=== PATIENT | male | born 1955 | race Caucasian/White ===

== ENCOUNTER 2016-06-19 17:25 | Inpatient (IN) | payer BC, OTHER ==
[2016-06-19 17:38] VITALS: BMI 21.8
[2016-06-19] MEDS ORDERED: Sodium Chloride 0.9% 1,000 ML IV STA ×2 (18:03)
--- NOTE | 2016-06-19 18:14 | ED PDOC ---
Arrival/HPI - General Chief Complaint: High Blood Sugar Time Seen by Provider: 06/19/16 18:02 Historian: Patient - History of Present Illness Narrative History of Present Illness (Text): 06/19/16 19:00 Patient is a 61 year old male past medical history of diabetes, presents to ED with "being very weak" "since yesterday". Patient reportedly is a diabetic but has been noncompliant with follow-up and with medication. Patient reportedly has had increased thirst and urination since yesterday. Today he was "too weak to get up" and complains of nausea, chest pain, cough, abdominal cramping. No vomiting. No fever. Denies injury or trauma. Family states the patient has been "breathing harder" lately and has been slurring his words today. Time/Duration: Prior to Arrival Symptom Onset: Gradual Past Medical History - Tetanus Immunization Tetanus Immunization: Unknown - Cardiac Hx Hypertension: Yes - Endocrine/Metabolic Hx Diabetes Mellitus Type 2: Yes - Musculoskeletal/Rheumatological Hx Falls: No - Psychiatric Hx Depression: No Hx Emotional Abuse: No Hx Physical Abuse: No Hx Substance Use: No - Surgical History Hx Cardiac Catheterization: Yes - Anesthesia Hx Anesthesia: No - Suicidal Assessment Feels Threatened In Home Enviroment: No Family/Social History Family/Social History: Unknown Family HX Smoking Status: Former Smoker Hx Alcohol Use: No (quit 7 yrs ago) Hx Substance Use: No Hx Substance Use Treatment: No Allergies/Home Meds Allergies/Adverse Reactions: Allergies No Known Allergies Allergy (Verified 06/19/16 17:38) Home Medications: Home Meds Medication Instructions Recorded Confirmed Metformin HCl [Glucophage] 500 mg PO BID 06/19/16 06/19/16 Review of Systems - Review of Systems Constitutional: Fatigue. absent: Fevers Eyes: absent: Vision Changes, Eye Pain ENT: absent: Hearing Changes Respiratory: SOB, Cough, Sputum. absent: Wheezing Cardiovascular: Chest Pain, Palpitations, EUCEDA. absent: Edema, Calf Pain Gastrointestinal: Nausea, Appetite Changes. absent: Abdominal Pain, Vomiting, Hematochezia Genitourinary Male: Frequency. absent: Dysuria, Urinary Output Changes Musculoskeletal: absent: Arthralgias, Back Pain Skin: absent: Rash Neurological: Headache, Dizziness. absent: Focal Weakness, Gait Changes Endocrine: Polyuria, Polydipsia Physical Exam - Physical Exam Narrative Physical Exam (Text): Head: Atraumatic. Normocephalic. Eyes: PERRL. EOMI. Conjunctivae are not pale. ENT: Mucous membranes dry and tacky. No pharyngeal erythema or exudates. No drooling or pooling of secretions. No active bleeding, no nasal bleeding or discharge. Neck: Supple. Full ROM. No JVD. No lymphadenopathy. No meningeal signs. Cardiovascular: Tachycardic, systolic murmur. Pulmonary/Chest: Tachypneic, lungs clear with no wheezes or rhonchi. Abdominal: Soft and non-distended. There is no tenderness. No rebound, guarding, or rigidity. No organomegaly. Good bowel sounds. Back: No CVA tenderness. No midline tenderness. Extremities: No edema. No cyanosis. No clubbing. Full range of motion in all extremities. No calf tenderness. Skin: Skin is dry, pale. Smell of acetone. Neurological: Alert, awake, and oriented to person, place, time, and situation. Normal speech. Motor and sensory exam intact, no facial droop, no meningeal signs. Motor and sensory exam intact. No meningeal signs. Psychiatric: Good eye contact. Normal interaction, affect, and behavior. Vital Signs Reviewed: Yes Vital Signs Temp Pulse Resp BP Pulse Ox 06/19/16 21:20 102 H 37 H 95 06/19/16 21:11 99 H 40 H 174/89 H 96 06/19/16 21:10 105 H 38 H 06/19/16 21:07 36 H 06/19/16 20:48 98.1 F 111 H 20 156/91 H 94 L 06/19/16 18:02 100.2 F H Temperature: Afebrile Pulse: Tachycardic Respiratory Rate: Tachypneic Appearance: Positive for: Ill-Appearing Pain Distress: Severe Mental Status: Positive for: Alert and Oriented X 3 Medical Decision Making ED Course and Treatment: 06/19/16 23:01 Patient on examination is noted to smell of acetone, is hyperglycemia. Patient I suspect in DKA based on initial examination and history. IV fluids ordered, blood sugar found to be over 400. ABG reveals acidosis, labs reveal elevated k as well as high anion gap. Insulin drip ordered, iv fluids continued. Internet Consultant consulted. Patient coughed, felt as if blood tinged. I examined patient he has no wheezing or rales. Tachypnea I feel due to acidosis. I examined sputum and did not see gross bright red blood. Patient reports generalized pain. He reportedly has had cardiac cath in past, although several years ago, which was unremarkable. After iv fluids and re-exam the patient has no slurred speech or motor or sensory deficits. Suspect DKA. CXR with ? infiltrate, will initiate IV antibiotics after consultation with superintendent meters Dr. Hanna, patient admitted to ICU. Will follow serial exams, treat elevated K at this time with iv hydration and insulin. Will continue cardiac monitoring, no chest pain on reassessment, initial troponin unremarkable. - Lab Interpretations Lab Results: 06/19/16 18:15 06/19/16 18:15 Lab Results 06/19/16 18:35: pCO2 14 L*, pO2 76.0 L, HCO3 4.8 L*, ABG pH 7.14 L*, ABG Total CO2 5.2 L, ABG O2 Saturation 95.6, ABG Base Excess -21.9 L, ABG Potassium 4.7, Glucose 425 H*, Lactate 2.2 H, FiO2 21.0, Sodium 143.0, Chloride 119.0 H, Arterial Blood Potassium 4.7 06/19/16 18:15: TSH 3rd Generation 0.03 L 06/19/16 18:15: Phosphorus 5.3 H, Magnesium 2.5 H, NT-Pro-B Natriuret Pep 370 06/19/16 18:15: Sodium 147, Potassium 5.5 H, Chloride 108 H, Carbon Dioxide 7 L D, Anion Gap 38 H, BUN 19, Creatinine 1.6 H, Est GFR ( Amer) 54, Est GFR (Non-Af Amer) 44, Random Glucose 495 H* D, Calcium 10.0, Total Bilirubin 1.2, AST 18, ALT 28, Alkaline Phosphatase 76, Lactate Dehydrogenase 756 H, Total Creatine Kinase 117, Troponin I < 0.01, Total Protein 9.2 H, Albumin 4.2, Globulin 5.0, Albumin/Globulin Ratio 0.8 L, Amylase 49, Lipase 26 06/19/16 18:15: PT 10.7, INR 0.99, APTT 30.8 06/19/16 18:15: WBC 7.2, RBC 5.09, Hgb 14.3, Hct 43.7, MCV 85.9, MCH 28.1, MCHC 32.7, RDW 14.1, Plt Count 160, Gran % 76.7 H, Lymph % (Auto) 10.9 L, Brooks % ( Auto) 12.2 H, Eos % (Auto) 0.1 L, Baso % (Auto) 0.1, Gran # 5.49, Lymph # 0.8 L , Brooks # 0.9 H, Eos # 0.0, Baso # 0.01 - RAD Interpretation Radiology Orders: 06/19/16 18:02 CHEST PORTABLE [RAD] Stat - EKG Interpretation EKG Interpretation (Text): 06/19/16 23:01 EKG at 17:52 sinus tachycardia rate of 104 with peaked t waves lead v2 and v3 Interpreted by ED Physician: Yes Type: 12 lead EKG - Medication Orders Current Medication Orders: Acetaminophen (Tylenol 325mg Tab) 650 mg PO Q6H PRN PRN Reason: Fever >100.4 F Sodium Chloride (Sodium Chloride 0.9%) 1,000 mls @ 200 mls/hr IV .Q5H LYN Last Admin: 06/19/16 20:44 Dose: 200 mls/hr Insulin Human Regular 100 (units/ Sodium Chloride) 100 mls @ 5 mls/hr IV .Q20H PRN; Protocol; 5 UNITS/HR PRN Reason: TITRATE PER MD ORDER Levofloxacin/Dextrose (Levaquin 500mg) 500 mg in 100 mls @ 100 mls/hr IVPB DAILY LYN Lisinopril (Zestril) 30 mg PO DAILY LYN Metoclopramide HCl (Reglan) 10 mg IVP Q6H PRN PRN Reason: Nausea/Vomiting Pantoprazole Sodium (Protonix Inj) 40 mg IVP DAILY [facility] Discontinued Medications Sodium Chloride (Sodium Chloride 0.9%) 1,000 mls @ 1,000 mls/hr IV .Q1H STA Stop: 06/19/16 19:02 Last Admin: 06/19/16 18:18 Dose: 1,000 mls/hr Sodium Chloride (Sodium Chloride 0.9%) 1,000 mls @ 1,000 mls/hr IV .Q1H STA Stop: 06/19/16 19:02 Last Admin: 06/19/16 18:19 Dose: 1,000 mls/hr Insulin Human Regular 100 (units/ Sodium Chloride) 100 mls @ 7 mls/hr IV .[id number] PRN; Protocol; 7 UNITS/HR PRN Reason: TITRATE PER MD ORDER Last Admin: 06/19/16 21:31 Dose: 12 units/hr, 12 mls/hr Levofloxacin/Dextrose (Levaquin 500mg) 500 mg in 100 mls @ 100 mls/hr IVPB STAT STA Stop: 06/19/16 20:33 Last Admin: 06/19/16 20:36 Dose: 100 mls/hr Ondansetron HCl (Zofran Inj) 4 mg IVP ONCE ONE Stop: 06/19/16 18:23 Last Admin: 06/19/16 18:40 Dose: 4 mg Disposition/Present on Arrival - Present on Arrival Any Indicators Present on Arrival: Yes History of DVT/PE: No History of Uncontrolled Diabetes: Yes Urinary Catheter: No History of Decub. Ulcer: No History Surgical Site Infection Following: None - Disposition Have Diagnosis and Disposition been Completed?: Yes Diagnosis: Diabetic ketoacidosis Disposition: HOSPITALIZED Disposition Time: 19:00 Patient Plan: Admission Patient Problems: Current Active Problems Problem Status Onset Diabetic ketoacidosis Acute Condition: CRITICAL
[2016-06-19 18:28] LABS: ADD MANUAL DIFF? NO
[2016-06-19 18:40] LABS: BASO # 0.01 K/mm3 (0.0-2.0); BASO % 0.1 % (0.0-3.0); EOS % 0.1 % (1.5-5.0); GRAN # 5.49 (1.4-6.5); GRAN % 76.7 % (50.0-68.0); HEMATOCRIT 43.7 % (42.0-52.0); LYMPH # 0.8 (1.2-3.4); LYMPH % 10.9 % (22.0-35.0); MEAN CELL VOLUME 85.9 fL (80.0-105.0); MEAN CORPUSCULAR HEMOGLOBIN 28.1 pg (25.0-35.0); MEAN CORPUSCULAR HGB CONC 32.7 g/dl (31.0-37.0); MONO # 0.9 (0.1-0.6); MONO % 12.2 % (1.0-6.0); PLATELET COUNT 160 10^3/uL (120.0-450.0); RED CELL DISTRIBUTION WIDTH 14.1 % (11.5-14.5); WHITE BLOOD COUNT 7.2 10^3/ul (4.5-11.0)
[2016-06-19 18:44] LABS: ARTERIAL BLOOD GAS HCO3 4.8 mmol/L (21-28)
[2016-06-19 18:47] LABS: INR 0.99 (0.93-1.08); PARTIAL THROMBOPLASTIN TIME 30.8 Seconds (23.7-30.8)
[2016-06-19 18:49] LABS: ARTERIAL BLOOD GAS PH 7.14 (7.35-7.45)
[2016-06-19 18:52] LABS: ALB/GLOB RATIO 0.8 (1.1-1.8); ALKALINE PHOSPHATASE 76 U/L (38-133); ALT/SGPT 28 U/L (7-56); AMYLASE 49 U/L (35-125); AST/SGOT 18 U/L (15-59); BILIRUBIN,TOTAL 1.2 mg/dL (0.2-1.3); BLOOD UREA NITROGEN 19 mg/dL (7-21); CARBON DIOXIDE 7 mmol/L (21-33); CHLORIDE 108 mmol/L (98-107); GFR AFRICAN-AMERICAN 54; LIPASE 26 U/L (23-300); SODIUM 147 mmol/L (132-148); TOTAL PROTEIN 9.2 g/dL (5.8-8.3)
[2016-06-19 18:53] LABS: POTASSIUM 5.5 mmol/L (3.6-5.0)
[2016-06-19 18:55] LABS: GLUCOSE,RANDOM 495 mg/dL (70-110)
[2016-06-19] MEDS: Insulin Regular 100 UNITS in Sodium Chloride 0.9% 99 ML IV PRN ×2 (19:32→21:31)
[2016-06-19] MEDS ORDERED: levoFLOXacin 500 mg in D5W 500 MG/100 ML BAG IVPB STA (19:34)
[2016-06-19 19:43] LABS: TROPONIN I < 0.01 ng/mL
[2016-06-19] MEDS ORDERED: Sodium Chloride 0.9% 1,000 ML IV SCH (20:00)
[2016-06-19] MEDS ORDERED: Insulin Regular 100 UNITS in Sodium Chloride 0.9% 99 ML IV PRN (20:04)
--- NOTE | 2016-06-19 20:08 | CP.PCM.PCO ---
Physician Communication Note - Physician Communication Note Physician Communication Note: Once FS<wf=[id number], please change IVF to d51/2NS@ 150cc/hr
--- NOTE | 2016-06-19 20:10 | CP.PCM.HP ---
History of Present Illness - History of Present Illness History of Present Illness: The patient is a 61 year old man with history of HTN and NIDDM who presents with 2 days of generalized weakness, polydysia, polyuria, hemoptysis, cough with green-colored sputum, intermittent confusion and some mild SOB. He admits to being non-compliant with his home diabetes medications. He also reports several months of unintentional weight loss; although he cannot quantify the exact amount lost. Additionally, he reports several weeks of night sweats. He denies chest pain, recent travel, history of tuberculoses, recent trauma, or N/V. In the ED, per RN report, he had one episode of "mildly" bloody sputum. Also in the ED, his chest X-ray shows a RUL infiltrate and initial labs confirmed. Also, the patient is septic. Consequently, he will now be admitted to the ICU for further treatment and close monitoring of his acute medical issues. Present on Admission - Present on Admission Any Indicators Present on Admission: No History of DVT/PE: No History of Uncontrolled Diabetes: Yes Urinary Catheter: No Decubitus Ulcer Present: No Review of Systems - Review of Systems All systems: reviewed and no additional remarkable complaints except - Constitutional Constitutional: As Per HPI - EENT Eyes: As Per HPI Nose/Mouth/Throat: As Per HPI - Cardiovascular Cardiovascular: As Per HPI - Respiratory Respiratory: As Per HPI - Gastrointestinal Gastrointestinal: As Per HPI - Genitourinary Genitourinary: As Per HPI - Musculoskeletal Musculoskeletal: As Per HPI - Neurological Neurological: As Per HPI Past Patient History - Tetanus Immunizations Tetanus Immunization: Unknown - Past Social History Smoking Status: Former Smoker - CARDIAC Hx Hypertension: Yes - ENDOCRINE/METABOLIC Hx Diabetes Mellitus Type 2: Yes - MUSCULOSKELETAL/RHEUMATOLOGICAL Hx Falls: No - GASTROINTESTINAL Hx Ulcer: Yes (1984) - PSYCHIATRIC Hx Depression: No Hx Emotional Abuse: No Hx Physical Abuse: No Hx Substance Use: No - SURGICAL HISTORY Hx Cardiac Catheterization: Yes - ANESTHESIA Hx Anesthesia: No Meds Allergies/Adverse Reactions: Allergies Allergy/AdvReac Type Severity Reaction Status Date / Time No Known Allergies Allergy Verified 06/19/16 17:38 Physical Exam - Constitutional Additional comments: Fatigued appearing but no acute distress; A&Ox3 - Head Exam Head Exam: ATRAUMATIC - Eye Exam Eye Exam: EOMI, Normal appearance, PERRL - ENT Exam ENT Exam: Mucous Membranes Dry, Normal Oropharynx - Neck Exam Neck exam: Positive for: Normal Inspection - Respiratory Exam Respiratory Exam: Clear to Auscultation Bilateral, NORMAL BREATHING PATTERN - Cardiovascular Exam Cardiovascular Exam: Tachycardia, REGULAR RHYTHM, +S1, +S2 - GI/Abdominal Exam GI & Abdominal Exam: Normal Bowel Sounds, Soft. absent: Tenderness - Rectal Exam Rectal Exam: Deferred - Extremities Exam Extremities exam: Positive for: normal inspection - Neurological Exam Additional comments: Grossly normal neuro exam Results - Vital Signs Recent Vital Signs: Last Vital Signs Temp 100.2 F H 06/19/16 18:02 Pulse Resp BP Pulse Ox - Labs Result Diagrams: 06/20/16 04:00 06/20/16 04:00 - Imaging and Cardiology Chest x-ray Status: Image reviewed by me Assessment & Plan - Assessment and Plan (Free Text) Plan: A/P: The patient is a 61 year old man with history of HTN and NIDDM who is being admitted to the ICU for DKA, hemoptysis and sepsis due to a right-sided PNA. 1. Diabetic Ketoacidosis (without coma): -due to medication non-compliance -Insulin drip per Algorithm 1 protocol -NPO except meds while on Insulin drip -aggressive IVF's initially with NS@200cc/hr -no need for supplemental potassium at this time since initial K=5.5 -once fingerstick <vp=929, change IVF's to D51/2NS@150cc/hr -check serial BMP's, VBG's, Mag and Phos Q4hrs x 6 -check HgA1c -symptoms of generalized weakness likely due to DKA 2. Sepsis (due to pneumonia): -empiric IV antibiotics -aggressive IVF's -check procalcitonin and repeat lactic acid -check HIV -will place an ID consult 2. Right-sided Pneumonia: -will treat empirically with IV Vanco and Zosyn -blood and urine cultures drawn in ED already -will check procalcitonin and lactic acid -an ID consult has been placed -TB will be ruled out with three sputum AFB samples -airborne precautions while TB is being ruled out -monitor serial ABG's 3. Acute Hemoptysis: -ddx: TB vs malignancy -will rule out TB with three sets of sputum AFB samples -airborne precautions while TB is being ruled out -avoid anticoagulation -given infiltrates on CXR, absence of respiratory distress and a normal O2 sat, suspicion for acute PE is low -however, if pt's symptoms deteriorate despite IV antibiotics, will then consider a CT-PA 4. Acute Kidney Injury: -likely pre-renal etiology due to intravascular depletion -serum Cr expected to correct after aggressive IVF's -renally dose all meds until serum Cr corrects 5. Poorly Controlled Hypertension: -due to medication non-compliance -Lisinopril 30mg po daily plus Norvasc 10mg po daily -Clonidine 0.1mg po TID PRN SBP>165 DVT PPx: SCD's GI PPx: Protonix
[2016-06-19 21:48] LABS: MAGNESIUM 2.5 mg/dL (1.7-2.2); PHOSPHOROUS 5.3 mg/dL (2.5-4.5)
[2016-06-19] MEDS ORDERED: Labetalol 5 mg/ml Inj 20ML IV ONE (23:02)
[2016-06-19 23:31] LABS: VENOUS BLOOD GAS BASE EXCESS -17.2 mmol/L (0.0-2.0)
[2016-06-19 23:34] LABS: VENOUS BLOOD PH 7.12 (7.32-7.43)
[2016-06-19 23:34] LABS: BLOOD UREA NITROGEN 18 mg/dL (7-21); CALCIUM 9.6 mg/dL (8.4-10.5); CARBON DIOXIDE 12 mmol/L (21-33); CHLORIDE 116 mmol/L (98-107); GFR AFRICAN-AMERICAN > 60; GLUCOSE,RANDOM 242 mg/dL (70-110); POTASSIUM 4.2 mmol/L (3.6-5.0); SODIUM 152 mmol/L (132-148)
[2016-06-20 00:09] LABS: ARTERIAL BLOOD GAS HCO3 11.3 mmol/L (21-28); ARTERIAL BLOOD GAS O2 CONTENT 16.3 ML/dl (15-23); ARTERIAL BLOOD GAS PH 7.34 (7.35-7.45); CARBOXYHEMOGLOBIN 1.2 % (0.5-1.5); METHEMOGLOBIN 0.8 % (0.0-3.0)
[2016-06-20] MEDS ORDERED: Piperacillin/Tazobact 3.375 gm 100 ML IVPB STA (00:35)
[2016-06-20 01:02] LABS: MAGNESIUM 2.6 mg/dL (1.7-2.2); PHOSPHOROUS 2.2 mg/dL (2.5-4.5)
[2016-06-20] MEDS: Vancomycin 1gm in NS 250ml 1 GM/250 ML BAG IVPB SCH ×2 (01:02→11:49)
[2016-06-20] MEDS ORDERED: Potassium Phosphate 15 MMOLE in Dextrose 5% In Water 250 ML IVPB ONE (01:18)
[2016-06-20] MEDS: Potassium Chloride 20 MEQ in Dextrose 5%/0.45% NS 1,000 ML IV SCH ×2 (02:00→09:39)
[2016-06-20 04:13] LABS: HEMATOCRIT 40.6 % (42.0-52.0); MEAN CELL VOLUME 82.9 fL (80.0-105.0); MEAN CORPUSCULAR HEMOGLOBIN 26.9 pg (25.0-35.0); WHITE BLOOD COUNT 5.4 10^3/ul (4.5-11.0)
[2016-06-20 04:14] LABS: ADD MANUAL DIFF? YES; MEAN CORPUSCULAR HGB CONC 32.5 g/dl (31.0-37.0); MEAN PLATELET VOLUME 13.1 fl (7.0-11.0); PLATELET COUNT 133 10^3/uL (120.0-450.0); RED CELL DISTRIBUTION WIDTH 14.2 % (11.5-14.5)
[2016-06-20 04:20] LABS: BLOOD UREA NITROGEN 17 mg/dL (7-21); CALCIUM 9.1 mg/dL (8.4-10.5); CARBON DIOXIDE 14 mmol/L (21-33); CHLORIDE 118 mmol/L (98-107); CHOLESTEROL 144 mg/dL (130-200); GFR AFRICAN-AMERICAN > 60; GLUCOSE,RANDOM 272 mg/dL (70-110); MAGNESIUM 2.3 mg/dL (1.7-2.2); POTASSIUM 4.5 mmol/L (3.6-5.0); SODIUM 151 mmol/L (132-148)
[2016-06-20] MEDS: Insulin Regular 100 UNITS in Sodium Chloride 0.9% 99 ML IV PRN ×9 (04:30→19:12)
[2016-06-20 04:34] LABS: VENOUS BLOOD PH 7.36 (7.32-7.43)
[2016-06-20 04:35] LABS: VENOUS BLOOD GAS BASE EXCESS -9.1 mmol/L (0.0-2.0)
[2016-06-20 05:16] LABS: ARTERIAL BLOOD GAS O2 CAPACITY 17.3 mL/dl (16-24); ARTERIAL BLOOD GAS O2 CONTENT 16.3 ML/dl (15-23); ARTERIAL BLOOD GAS PH 7.37 (7.35-7.45); ARTERIAL BLOOD HGB O2 SAT 92.2 % (95.0-98.0); CARBOXYHEMOGLOBIN 1.5 % (0.5-1.5); HHB 5.5 % (0-5); METHEMOGLOBIN 0.9 % (0.0-3.0)
[2016-06-20] MEDS: Piperacillin/Tazobact 3.375 gm 100 ML IVPB SCH ×4 (06:47→18:12)
[2016-06-20 07:18] LABS: PH,URINE 5.5 (4.7-8.0); URINE BILIRUBIN SMALL (NEGATIVE); URINE BLOOD LARGE (NEGATIVE); URINE GLUCOSE (UA) 100 mg/dL (NEGATIVE); URINE KETONE 40 mg/dL (NEGATIVE); URINE LEUKOCYTE ESTERASE NEGATIVE Leu/uL (NEGATIVE); URINE PROTEIN 100 mg/dL (<30 mg/dL)
[2016-06-20 07:26] LABS: URINE APPEARANCE SL CLOUDY (CLEAR); URINE COLOR YELLOW (YELLOW)
[2016-06-20 07:27] LABS: URINE AMORPHOUS SEDIMENT FEW; URINE BACTERIA MOD (NEG); URINE EPITHELIAL CELLS 0 - 2 /hpf (0-5); URINE URIC ACID CRYSTALS FEW /hpf; URINE WBC 0 - 2 /hpf (0-6)
--- NOTE | 2016-06-20 08:49 | RAD ---
HISTORY: chest pain COMPARISON: 03/16/2012 FINDINGS: LUNGS: Multifocal hazy opacities particularly in the right lung. PLEURA: No significant pleural effusion identified, no pneumothorax apparent. CARDIOVASCULAR: Stable. OSSEOUS STRUCTURES: The osseous structures demonstrate degenerative changes. VISUALIZED UPPER ABDOMEN: Upper abdomen is suboptimally evaluated. OTHER FINDINGS: None. IMPRESSION: Multifocal small hazy opacities in the right lung. Underlying infection can be considered based on clinical scenario. PA lateral chest radiograph recommended. Please note that chest radiographs have low sensitivity for small pulmonary nodules. If indicated, chest CT should be obtained.
--- NOTE | 2016-06-20 09:47 | CP.CCUPN ---
CCU Subjective - Physician Review Events Since Last Encounter (Free Text): 06/20/16 09:41 No acute events overnight.Continued on DKA protocol . Pt was placed on TB precautions, but cxr reviewed, low likelyhood for TB. D/C isolation CCU Objective - Vital Signs / Intake & Output Vital Signs (Last 4 hours): Vital Signs Temp Pulse Resp BP Pulse Ox 06/20/16 09:16 144/88 06/20/16 09:15 88 144/88 06/20/16 07:20 92 H 31 H 94 L 06/20/16 07:10 93 H 27 H 94 L 06/20/16 07:00 91 H 30 H 154/73 H 94 L 06/20/16 06:50 94 H 34 H 94 L 06/20/16 06:40 94 H 31 H 94 L 06/20/16 06:30 92 H 30 H 168/74 H 94 L 06/20/16 06:20 93 H 38 H 94 L 06/20/16 06:10 92 H 33 H 94 L 06/20/16 06:07 100.4 F H 06/20/16 06:00 93 H 29 H 160/81 H 94 L 06/20/16 05:50 95 H 34 H 94 L Intake and Output (Last 8hrs): Intake & Output 06/19/16 06/20/16 06/20/16 22:59 06:59 14:59 Intake Total 20 2103 6 Output Total 1400 Balance 20 703 6 Weight 170 lb Intake: IV 20 1653 6 Left Antecubital 1300 Right Hand 330 Oral 450 Output: Urine 1400 Condom 600 Urine, Voided 800 Other: Voiding Method Diaper Diaper - Physical Exam Head: Positive for: Atraumatic, Normocephalic Pupils: Positive for: PERRL Extroacular Muscles: Positive for: EOMI Conjunctiva: Positive for: Normal Mouth: Positive for: Moist Mucous Membranes Nose (External): Positive for: Atraumatic Neck: Positive for: Normal Range of Motion Respiratory/Chest: Positive for: Clear to Auscultation, Good Air Exchange Cardiovascular: Positive for: Regular Rate and Rhythm, Normal S1, S2 Abdomen: Positive for: Normal Bowel Sounds Back: Positive for: Normal Inspection Upper Extremity: Positive for: Normal Inspection Lower Extremity: Positive for: Normal Inspection Neurological: Positive for: CN II-XII Intact, Speech Normal Skin: Positive for: Warm Psychiatric: Positive for: Alert, Oriented x 3 - Medications Active Medications: Active Medications Generic Name Dose Route Start Last Admin Trade Name Freq PRN Reason Stop Dose Admin Acetaminophen 650 mg 06/19/16 19:56 06/20/16 06:07 Tylenol 325mg Tab PO 650 mg Q6H PRN Administration Fever >100.4 F Amlodipine Besylate 10 mg 06/20/16 10:00 06/20/16 09:16 Norvasc PO 10 mg DAILY LYN Administration Clonidine HCl 0.1 mg 06/20/16 02:14 06/20/16 09:15 Catapres PO 0.1 mg TID PRN Administration Systolic Blood Pressure Vancomycin HCl 1 gm in 250 mls @ 167 mls/hr 06/20/16 00:45 06/20/16 01:02 Vancomycin 1gm IVPB 167 mls/hr Q12H LYN Administration Protocol Piperacillin Sod/Tazobactam Sod 100 mls @ 200 mls/hr 06/20/16 06:00 06/20/16 06:47 Zosyn 3.375 In Ns 100ml IVPB 06/20/16 12:29 200 mls/hr Q6 LYN Administration Protocol Potassium Chloride 20 meq/ 1,010 mls @ 150 mls/hr 06/20/16 01:00 06/20/16 09: 39 Dextrose/Sodium Chloride IV 150 mls/hr .[id number] LYN Administration Insulin Human Regular 100 100 mls @ 5 mls/hr 06/20/16 04:44 06/20/16 09:00 units/ Sodium Chloride IV 6 units/hr .Q20H PRN 6 mls/hr TITRATE PER MD ORDER Administration Protocol 5 UNITS/HR Lisinopril 30 mg 06/20/16 10:00 06/20/16 09:15 Zestril PO 30 mg DAILY LYN Administration Metoclopramide HCl 10 mg 06/19/16 19:56 Reglan IVP Q6H PRN Nausea/Vomiting Pantoprazole Sodium 40 mg 06/20/16 10:00 06/20/16 09:17 Protonix Inj IVP 40 mg DAILY LYN Administration - Patient Studies Lab Studies: Lab Studies 06/20/16 06/20/16 06/20/16 Range/Units 09:04 08:12 06:51 WBC (4.5-11.0) 10^3/ul RBC (3.5-6.1) 10^6/uL Hgb (14.0-18.0) gm/dL Hct (42.0-52.0) % MCV (80.0-105.0) fL MCH (25.0-35.0) pg MCHC (31.0-37.0) g/dl RDW (11.5-14.5) % Plt Count (120.0-450.0) 10^3/uL MPV (7.0-11.0) fl pCO2 (35-45) mm/Hg pO2 (30-55) mm/Hg HCO3 (21-28) mmol/L ABG pH (7.35-7.45) ABG Total CO2 (22-28) mmol.L ABG O2 Saturation (95-98) % ABG O2 Content (15-23) ML/dl ABG Base Excess (-2.0-3.0) mmol/L ABG Hemoglobin (11.7-17.4) g/dL ABG Carboxyhemoglobin (0.5-1.5) % POC ABG HHb (Measured) (0-5) % ABG Methemoglobin (0.0-3.0) % ABG O2 Capacity (16-24) mL/dl VBG pH (7.32-7.43) VBG pCO2 (40-60) VBG HCO3 (21-28) mmol/l VBG Total CO2 (22-28) mmol.L VBG O2 Sat (Calc) (40-65) % VBG Base Excess (0.0-2.0) mmol/L VBG Potassium (3.6-5.2) mmol/L Hgb O2 Saturation (95.0-98.0) % Glucose (75-110) mg/dl Lactate (0.7-2.1) mmol/L FiO2 % Sodium (132-148) mmol/L Potassium (3.6-5.0) mmol/L Chloride (98-107) mmol/L Carbon Dioxide (21-33) mmol/L Anion Gap (10-20) BUN (7-21) mg/dL Creatinine (0.5-1.4) mg/dL Est GFR ( Amer) Est GFR (Non-Af Amer) POC Glucose (mg/dL) 287 H 278 H 277 H (65-110) mg/dL Random Glucose (70-110) mg/dL Lactic Acid (0.7-2.1) mmol/L Calcium (8.4-10.5) mg/dL Phosphorus (2.5-4.5) mg/dL Magnesium (1.7-2.2) mg/dL Triglycerides (35-160) mg/dL Cholesterol (130-200) mg/dL LDL Cholesterol Direct (0-129) mg/dL HDL Cholesterol (29-60) mg/dL Free T4 (0.78-2.19) ng/dL Venous Blood Potassium (3.6-5.2) mmol/L Urine Color (YELLOW) Urine Appearance (CLEAR) Urine pH (4.7-8.0) Ur Specific [place] (1.005-1.035) Urine Protein (<30 mg/dL) mg/dL Urine Glucose (UA) (NEGATIVE) mg/dL Urine Ketones (NEGATIVE) mg/dL Urine Blood (NEGATIVE) Urine Nitrate (NEGATIVE) Urine Bilirubin (NEGATIVE) Urine Urobilinogen (<1 E.U./dL) E.U./dL Ur Leukocyte Esterase (NEGATIVE) Maddie/uL Urine RBC (0-2) /hpf Urine WBC (0-6) /hpf Ur Epithelial Cells (0-5) /hpf Uric Acid Crystals /hpf Amorphous Sediment Urine Bacteria (NEG) Coarse Granular Casts (0-2) /hpf Urine Other 06/20/16 06/20/16 06/20/16 Range/Units 06:46 05:48 05:00 WBC (4.5-11.0) 10^3/ul RBC (3.5-6.1) 10^6/uL Hgb (14.0-18.0) gm/dL Hct (42.0-52.0) % MCV (80.0-105.0) fL MCH (25.0-35.0) pg MCHC (31.0-37.0) g/dl RDW (11.5-14.5) % Plt Count (120.0-450.0) 10^3/uL MPV (7.0-11.0) fl pCO2 26 L (35-45) mm/Hg pO2 62.0 L (30-55) mm/Hg HCO3 15.0 L (21-28) mmol/L ABG pH 7.37 (7.35-7.45) ABG Total CO2 15.8 L (22-28) mmol.L ABG O2 Saturation 94.4 L (95-98) % ABG O2 Content 16.3 (15-23) ML/dl ABG Base Excess -8.7 L (-2.0-3.0) mmol/L ABG Hemoglobin 12.6 (11.7-17.4) g/dL ABG Carboxyhemoglobin 1.5 (0.5-1.5) % POC ABG HHb (Measured) 5.5 H (0-5) % ABG Methemoglobin 0.9 (0.0-3.0) % ABG O2 Capacity 17.3 (16-24) mL/dl VBG pH (7.32-7.43) VBG pCO2 (40-60) VBG HCO3 (21-28) mmol/l VBG Total CO2 (22-28) mmol.L VBG O2 Sat (Calc) (40-65) % VBG Base Excess (0.0-2.0) mmol/L VBG Potassium (3.6-5.2) mmol/L Hgb O2 Saturation 92.2 L (95.0-98.0) % Glucose (75-110) mg/dl Lactate (0.7-2.1) mmol/L FiO2 28.0 % Sodium (132-148) mmol/L Potassium (3.6-5.0) mmol/L Chloride (98-107) mmol/L Carbon Dioxide (21-33) mmol/L Anion Gap (10-20) BUN (7-21) mg/dL Creatinine (0.5-1.4) mg/dL Est GFR ( Amer) Est GFR (Non-Af Amer) POC Glucose (mg/dL) 298 H (65-110) mg/dL Random Glucose (70-110) mg/dL Lactic Acid (0.7-2.1) mmol/L Calcium (8.4-10.5) mg/dL Phosphorus (2.5-4.5) mg/dL Magnesium (1.7-2.2) mg/dL Triglycerides (35-160) mg/dL Cholesterol (130-200) mg/dL LDL Cholesterol Direct (0-129) mg/dL HDL Cholesterol (29-60) mg/dL Free T4 (0.78-2.19) ng/dL Venous Blood Potassium (3.6-5.2) mmol/L Urine Color Yellow (YELLOW) Urine Appearance Sl cloudy (CLEAR) Urine pH 5.5 (4.7-8.0) Ur Specific [place] 1.025 (1.005-1.035) Urine Protein 100 H (<30 mg/dL) mg/dL Urine Glucose (UA) 100 H (NEGATIVE) mg/dL Urine Ketones 40 H (NEGATIVE) mg/dL Urine Blood Large H (NEGATIVE) Urine Nitrate Negative (NEGATIVE) Urine Bilirubin Small H (NEGATIVE) Urine Urobilinogen 1.0 H (<1 E.U./dL) E.U./dL Ur Leukocyte Esterase Negative (NEGATIVE) Maddie/uL Urine RBC 2 - 5 (0-2) /hpf Urine WBC 0 - 2 (0-6) /hpf Ur Epithelial Cells 0 - 2 (0-5) /hpf Uric Acid Crystals Few /hpf Amorphous Sediment Few Urine Bacteria Mod (NEG) Coarse Granular Casts Small H (0-2) /hpf Urine Other Uyeast 06/20/16 06/20/16 06/20/16 Range/Units 04:37 04:00 04:00 WBC 5.4 D (4.5-11.0) 10^3/ul RBC 4.90 (3.5-6.1) 10^6/uL Hgb 13.2 L (14.0-18.0) gm/dL Hct 40.6 L (42.0-52.0) % MCV 82.9 (80.0-105.0) fL MCH 26.9 (25.0-35.0) pg MCHC 32.5 (31.0-37.0) g/dl RDW 14.2 (11.5-14.5) % Plt Count 133 (120.0-450.0) 10^3/uL MPV 13.1 H (7.0-11.0) fl pCO2 (35-45) mm/Hg pO2 (30-55) mm/Hg HCO3 (21-28) mmol/L ABG pH (7.35-7.45) ABG Total CO2 (22-28) mmol.L ABG O2 Saturation (95-98) % ABG O2 Content (15-23) ML/dl ABG Base Excess (-2.0-3.0) mmol/L ABG Hemoglobin (11.7-17.4) g/dL ABG Carboxyhemoglobin (0.5-1.5) % POC ABG HHb (Measured) (0-5) % ABG Methemoglobin (0.0-3.0) % ABG O2 Capacity (16-24) mL/dl VBG pH (7.32-7.43) VBG pCO2 (40-60) VBG HCO3 (21-28) mmol/l VBG Total CO2 (22-28) mmol.L VBG O2 Sat (Calc) (40-65) % VBG Base Excess (0.0-2.0) mmol/L VBG Potassium (3.6-5.2) mmol/L Hgb O2 Saturation (95.0-98.0) % Glucose (75-110) mg/dl Lactate (0.7-2.1) mmol/L FiO2 % Sodium 151 H (132-148) mmol/L Potassium 4.5 (3.6-5.0) mmol/L Chloride 118 H (98-107) mmol/L Carbon Dioxide 14 L (21-33) mmol/L Anion Gap 24 H (10-20) BUN 17 (7-21) mg/dL Creatinine 1.2 (0.5-1.4) mg/dL Est GFR ( Amer) > 60 Est GFR (Non-Af Amer) > 60 POC Glucose (mg/dL) 283 H (65-110) mg/dL Random Glucose 272 H (70-110) mg/dL Lactic Acid (0.7-2.1) mmol/L Calcium 9.1 (8.4-10.5) mg/dL Phosphorus (2.5-4.5) mg/dL Magnesium 2.3 H (1.7-2.2) mg/dL Triglycerides 59 (35-160) mg/dL Cholesterol 144 (130-200) mg/dL LDL Cholesterol Direct 58 (0-129) mg/dL HDL Cholesterol 37 (29-60) mg/dL Free T4 (0.78-2.19) ng/dL Venous Blood Potassium (3.6-5.2) mmol/L Urine Color (YELLOW) Urine Appearance (CLEAR) Urine pH (4.7-8.0) Ur Specific [place] (1.005-1.035) Urine Protein (<30 mg/dL) mg/dL Urine Glucose (UA) (NEGATIVE) mg/dL Urine Ketones (NEGATIVE) mg/dL Urine Blood (NEGATIVE) Urine Nitrate (NEGATIVE) Urine Bilirubin (NEGATIVE) Urine Urobilinogen (<1 E.U./dL) E.U./dL Ur Leukocyte Esterase (NEGATIVE) Maddie/uL Urine RBC (0-2) /hpf Urine WBC (0-6) /hpf Ur Epithelial Cells (0-5) /hpf Uric Acid Crystals /hpf Amorphous Sediment Urine Bacteria (NEG) Coarse Granular Casts (0-2) /hpf Urine Other 06/20/16 06/20/16 06/20/16 Range/Units 04:00 03:33 02:40 WBC (4.5-11.0) 10^3/ul RBC (3.5-6.1) 10^6/uL Hgb (14.0-18.0) gm/dL Hct (42.0-52.0) % MCV (80.0-105.0) fL MCH (25.0-35.0) pg MCHC (31.0-37.0) g/dl RDW (11.5-14.5) % Plt Count (120.0-450.0) 10^3/uL MPV (7.0-11.0) fl pCO2 (35-45) mm/Hg pO2 51 (30-55) mm/Hg HCO3 (21-28) mmol/L ABG pH (7.35-7.45) ABG Total CO2 (22-28) mmol.L ABG O2 Saturation (95-98) % ABG O2 Content (15-23) ML/dl ABG Base Excess (-2.0-3.0) mmol/L ABG Hemoglobin (11.7-17.4) g/dL ABG Carboxyhemoglobin (0.5-1.5) % POC ABG HHb (Measured) (0-5) % ABG Methemoglobin (0.0-3.0) % ABG O2 Capacity (16-24) mL/dl VBG pH 7.36 (7.32-7.43) VBG pCO2 26.0 L (40-60) VBG HCO3 14.7 L (21-28) mmol/l VBG Total CO2 (22-28) mmol.L VBG O2 Sat (Calc) 89.2 H (40-65) % VBG Base Excess -9.1 L (0.0-2.0) mmol/L VBG Potassium (3.6-5.2) mmol/L Hgb O2 Saturation (95.0-98.0) % Glucose (75-110) mg/dl Lactate (0.7-2.1) mmol/L FiO2 % Sodium (132-148) mmol/L Potassium (3.6-5.0) mmol/L Chloride (98-107) mmol/L Carbon Dioxide (21-33) mmol/L Anion Gap (10-20) BUN (7-21) mg/dL Creatinine (0.5-1.4) mg/dL Est GFR ( Amer) Est GFR (Non-Af Amer) POC Glucose (mg/dL) 284 H 268 H (65-110) mg/dL Random Glucose (70-110) mg/dL Lactic Acid (0.7-2.1) mmol/L Calcium (8.4-10.5) mg/dL Phosphorus (2.5-4.5) mg/dL Magnesium (1.7-2.2) mg/dL Triglycerides (35-160) mg/dL Cholesterol (130-200) mg/dL LDL Cholesterol Direct (0-129) mg/dL HDL Cholesterol (29-60) mg/dL Free T4 (0.78-2.19) ng/dL Venous Blood Potassium (3.6-5.2) mmol/L Urine Color (YELLOW) Urine Appearance (CLEAR) Urine pH (4.7-8.0) Ur Specific [place] (1.005-1.035) Urine Protein (<30 mg/dL) mg/dL Urine Glucose (UA) (NEGATIVE) mg/dL Urine Ketones (NEGATIVE) mg/dL Urine Blood (NEGATIVE) Urine Nitrate (NEGATIVE) Urine Bilirubin (NEGATIVE) Urine Urobilinogen (<1 E.U./dL) E.U./dL Ur Leukocyte Esterase (NEGATIVE) Maddie/uL Urine RBC (0-2) /hpf Urine WBC (0-6) /hpf Ur Epithelial Cells (0-5) /hpf Uric Acid Crystals /hpf Amorphous Sediment Urine Bacteria (NEG) Coarse Granular Casts (0-2) /hpf Urine Other 06/20/16 06/20/16 06/20/16 Range/Units 01:47 00:33 00:00 WBC (4.5-11.0) 10^3/ul RBC (3.5-6.1) 10^6/uL Hgb (14.0-18.0) gm/dL Hct (42.0-52.0) % MCV (80.0-105.0) fL MCH (25.0-35.0) pg MCHC (31.0-37.0) g/dl RDW (11.5-14.5) % Plt Count (120.0-450.0) 10^3/uL MPV (7.0-11.0) fl pCO2 (35-45) mm/Hg pO2 (30-55) mm/Hg HCO3 (21-28) mmol/L ABG pH (7.35-7.45) ABG Total CO2 (22-28) mmol.L ABG O2 Saturation (95-98) % ABG O2 Content (15-23) ML/dl ABG Base Excess (-2.0-3.0) mmol/L ABG Hemoglobin (11.7-17.4) g/dL ABG Carboxyhemoglobin (0.5-1.5) % POC ABG HHb (Measured) (0-5) % ABG Methemoglobin (0.0-3.0) % ABG O2 Capacity (16-24) mL/dl VBG pH (7.32-7.43) VBG pCO2 (40-60) VBG HCO3 (21-28) mmol/l VBG Total CO2 (22-28) mmol.L VBG O2 Sat (Calc) (40-65) % VBG Base Excess (0.0-2.0) mmol/L VBG Potassium (3.6-5.2) mmol/L Hgb O2 Saturation (95.0-98.0) % Glucose (75-110) mg/dl Lactate (0.7-2.1) mmol/L FiO2 % Sodium (132-148) mmol/L Potassium (3.6-5.0) mmol/L Chloride (98-107) mmol/L Carbon Dioxide (21-33) mmol/L Anion Gap (10-20) BUN (7-21) mg/dL Creatinine (0.5-1.4) mg/dL Est GFR ( Amer) Est GFR (Non-Af Amer) POC Glucose (mg/dL) 231 H 236 H (65-110) mg/dL Random Glucose (70-110) mg/dL Lactic Acid (0.7-2.1) mmol/L Calcium (8.4-10.5) mg/dL Phosphorus 2.2 L (2.5-4.5) mg/dL Magnesium 2.6 H (1.7-2.2) mg/dL Triglycerides (35-160) mg/dL Cholesterol (130-200) mg/dL LDL Cholesterol Direct (0-129) mg/dL HDL Cholesterol (29-60) mg/dL Free T4 (0.78-2.19) ng/dL Venous Blood Potassium (3.6-5.2) mmol/L Urine Color (YELLOW) Urine Appearance (CLEAR) Urine pH (4.7-8.0) Ur Specific [place] (1.005-1.035) Urine Protein (<30 mg/dL) mg/dL Urine Glucose (UA) (NEGATIVE) mg/dL Urine Ketones (NEGATIVE) mg/dL Urine Blood (NEGATIVE) Urine Nitrate (NEGATIVE) Urine Bilirubin (NEGATIVE) Urine Urobilinogen (<1 E.U./dL) E.U./dL Ur Leukocyte Esterase (NEGATIVE) Maddie/uL Urine RBC (0-2) /hpf Urine WBC (0-6) /hpf Ur Epithelial Cells (0-5) /hpf Uric Acid Crystals /hpf Amorphous Sediment Urine Bacteria (NEG) Coarse Granular Casts (0-2) /hpf Urine Other 06/20/16 06/19/16 06/19/16 Range/Units 00:00 23:38 23:20 WBC (4.5-11.0) 10^3/ul RBC (3.5-6.1) 10^6/uL Hgb (14.0-18.0) gm/dL Hct (42.0-52.0) % MCV (80.0-105.0) fL MCH (25.0-35.0) pg MCHC (31.0-37.0) g/dl RDW (11.5-14.5) % Plt Count (120.0-450.0) 10^3/uL MPV (7.0-11.0) fl pCO2 21 L (35-45) mm/Hg pO2 54.0 L 34 (30-55) mm/Hg HCO3 11.3 L (21-28) mmol/L ABG pH 7.34 L (7.35-7.45) ABG Total CO2 11.9 L (22-28) mmol.L ABG O2 Saturation 90.8 L (95-98) % ABG O2 Content 16.3 (15-23) ML/dl ABG Base Excess -12.3 L (-2.0-3.0) mmol/L ABG Hemoglobin 13.0 (11.7-17.4) g/dL ABG Carboxyhemoglobin 1.2 (0.5-1.5) % POC ABG HHb (Measured) 9.0 H (0-5) % ABG Methemoglobin 0.8 (0.0-3.0) % ABG O2 Capacity 18.0 (16-24) mL/dl VBG pH 7.12 L* (7.32-7.43) VBG pCO2 34.0 L (40-60) VBG HCO3 11.1 L (21-28) mmol/l VBG Total CO2 12.1 L (22-28) mmol.L VBG O2 Sat (Calc) 60.9 (40-65) % VBG Base Excess -17.2 L (0.0-2.0) mmol/L VBG Potassium 4.3 (3.6-5.2) mmol/L Hgb O2 Saturation 89.0 L (95.0-98.0) % Glucose 257 H (75-110) mg/dl Lactate 4.0 H* (0.7-2.1) mmol/L FiO2 21.0 21.0 % Sodium 148.0 (132-148) mmol/L Potassium (3.6-5.0) mmol/L Chloride 121.0 H (98-107) mmol/L Carbon Dioxide (21-33) mmol/L Anion Gap (10-20) BUN (7-21) mg/dL Creatinine (0.5-1.4) mg/dL Est GFR ( Amer) Est GFR (Non-Af Amer) POC Glucose (mg/dL) 273 H (65-110) mg/dL Random Glucose (70-110) mg/dL Lactic Acid (0.7-2.1) mmol/L Calcium (8.4-10.5) mg/dL Phosphorus (2.5-4.5) mg/dL Magnesium (1.7-2.2) mg/dL Triglycerides (35-160) mg/dL Cholesterol (130-200) mg/dL LDL Cholesterol Direct (0-129) mg/dL HDL Cholesterol (29-60) mg/dL Free T4 (0.78-2.19) ng/dL Venous Blood Potassium 4.3 (3.6-5.2) mmol/L Urine Color (YELLOW) Urine Appearance (CLEAR) Urine pH (4.7-8.0) Ur Specific [place] (1.005-1.035) Urine Protein (<30 mg/dL) mg/dL Urine Glucose (UA) (NEGATIVE) mg/dL Urine Ketones (NEGATIVE) mg/dL Urine Blood (NEGATIVE) Urine Nitrate (NEGATIVE) Urine Bilirubin (NEGATIVE) Urine Urobilinogen (<1 E.U./dL) E.U./dL Ur Leukocyte Esterase (NEGATIVE) Maddie/uL Urine RBC (0-2) /hpf Urine WBC (0-6) /hpf Ur Epithelial Cells (0-5) /hpf Uric Acid Crystals /hpf Amorphous Sediment Urine Bacteria (NEG) Coarse Granular Casts (0-2) /hpf Urine Other 06/19/16 06/19/16 06/19/16 Range/Units 23:15 23:15 23:15 WBC (4.5-11.0) 10^3/ul RBC (3.5-6.1) 10^6/uL Hgb (14.0-18.0) gm/dL Hct (42.0-52.0) % MCV (80.0-105.0) fL MCH (25.0-35.0) pg MCHC (31.0-37.0) g/dl RDW (11.5-14.5) % Plt Count (120.0-450.0) 10^3/uL MPV (7.0-11.0) fl pCO2 (35-45) mm/Hg pO2 (30-55) mm/Hg HCO3 (21-28) mmol/L ABG pH (7.35-7.45) ABG Total CO2 (22-28) mmol.L ABG O2 Saturation (95-98) % ABG O2 Content (15-23) ML/dl ABG Base Excess (-2.0-3.0) mmol/L ABG Hemoglobin (11.7-17.4) g/dL ABG Carboxyhemoglobin (0.5-1.5) % POC ABG HHb (Measured) (0-5) % ABG Methemoglobin (0.0-3.0) % ABG O2 Capacity (16-24) mL/dl VBG pH (7.32-7.43) VBG pCO2 (40-60) VBG HCO3 (21-28) mmol/l VBG Total CO2 (22-28) mmol.L VBG O2 Sat (Calc) (40-65) % VBG Base Excess (0.0-2.0) mmol/L VBG Potassium (3.6-5.2) mmol/L Hgb O2 Saturation (95.0-98.0) % Glucose (75-110) mg/dl Lactate (0.7-2.1) mmol/L FiO2 % Sodium 152 H (132-148) mmol/L Potassium 4.2 (3.6-5.0) mmol/L Chloride 116 H (98-107) mmol/L Carbon Dioxide 12 L (21-33) mmol/L Anion Gap 28 H (10-20) BUN 18 (7-21) mg/dL Creatinine 1.2 (0.5-1.4) mg/dL Est GFR ( Amer) > 60 Est GFR (Non-Af Amer) > 60 POC Glucose (mg/dL) (65-110) mg/dL Random Glucose 242 H (70-110) mg/dL Lactic Acid 3.8 H (0.7-2.1) mmol/L Calcium 9.6 (8.4-10.5) mg/dL Phosphorus (2.5-4.5) mg/dL Magnesium (1.7-2.2) mg/dL Triglycerides (35-160) mg/dL Cholesterol (130-200) mg/dL LDL Cholesterol Direct (0-129) mg/dL HDL Cholesterol (29-60) mg/dL Free T4 1.31 (0.78-2.19) ng/dL Venous Blood Potassium (3.6-5.2) mmol/L Urine Color (YELLOW) Urine Appearance (CLEAR) Urine pH (4.7-8.0) Ur Specific [place] (1.005-1.035) Urine Protein (<30 mg/dL) mg/dL Urine Glucose (UA) (NEGATIVE) mg/dL Urine Ketones (NEGATIVE) mg/dL Urine Blood (NEGATIVE) Urine Nitrate (NEGATIVE) Urine Bilirubin (NEGATIVE) Urine Urobilinogen (<1 E.U./dL) E.U./dL Ur Leukocyte Esterase (NEGATIVE) Maddie/uL Urine RBC (0-2) /hpf Urine WBC (0-6) /hpf Ur Epithelial Cells (0-5) /hpf Uric Acid Crystals /hpf Amorphous Sediment Urine Bacteria (NEG) Coarse Granular Casts (0-2) /hpf Urine Other 06/19/16 06/19/16 06/19/16 Range/Units 22:28 21:23 20:07 WBC (4.5-11.0) 10^3/ul RBC (3.5-6.1) 10^6/uL Hgb (14.0-18.0) gm/dL Hct (42.0-52.0) % MCV (80.0-105.0) fL MCH (25.0-35.0) pg MCHC (31.0-37.0) g/dl RDW (11.5-14.5) % Plt Count (120.0-450.0) 10^3/uL MPV (7.0-11.0) fl pCO2 (35-45) mm/Hg pO2 (30-55) mm/Hg HCO3 (21-28) mmol/L ABG pH (7.35-7.45) ABG Total CO2 (22-28) mmol.L ABG O2 Saturation (95-98) % ABG O2 Content (15-23) ML/dl ABG Base Excess (-2.0-3.0) mmol/L ABG Hemoglobin (11.7-17.4) g/dL ABG Carboxyhemoglobin (0.5-1.5) % POC ABG HHb (Measured) (0-5) % ABG Methemoglobin (0.0-3.0) % ABG O2 Capacity (16-24) mL/dl VBG pH (7.32-7.43) VBG pCO2 (40-60) VBG HCO3 (21-28) mmol/l VBG Total CO2 (22-28) mmol.L VBG O2 Sat (Calc) (40-65) % VBG Base Excess (0.0-2.0) mmol/L VBG Potassium (3.6-5.2) mmol/L Hgb O2 Saturation (95.0-98.0) % Glucose (75-110) mg/dl Lactate (0.7-2.1) mmol/L FiO2 % Sodium (132-148) mmol/L Potassium (3.6-5.0) mmol/L Chloride (98-107) mmol/L Carbon Dioxide (21-33) mmol/L Anion Gap (10-20) BUN (7-21) mg/dL Creatinine (0.5-1.4) mg/dL Est GFR ( Amer) Est GFR (Non-Af Amer) POC Glucose (mg/dL) 339 H 380 H 423 H* (65-110) mg/dL Random Glucose (70-110) mg/dL Lactic Acid (0.7-2.1) mmol/L Calcium (8.4-10.5) mg/dL Phosphorus (2.5-4.5) mg/dL Magnesium (1.7-2.2) mg/dL Triglycerides (35-160) mg/dL Cholesterol (130-200) mg/dL LDL Cholesterol Direct (0-129) mg/dL HDL Cholesterol (29-60) mg/dL Free T4 (0.78-2.19) ng/dL Venous Blood Potassium (3.6-5.2) mmol/L Urine Color (YELLOW) Urine Appearance (CLEAR) Urine pH (4.7-8.0) Ur Specific [place] (1.005-1.035) Urine Protein (<30 mg/dL) mg/dL Urine Glucose (UA) (NEGATIVE) mg/dL Urine Ketones (NEGATIVE) mg/dL Urine Blood (NEGATIVE) Urine Nitrate (NEGATIVE) Urine Bilirubin (NEGATIVE) Urine Urobilinogen (<1 E.U./dL) E.U./dL Ur Leukocyte Esterase (NEGATIVE) Maddie/uL Urine RBC (0-2) /hpf Urine WBC (0-6) /hpf Ur Epithelial Cells (0-5) /hpf Uric Acid Crystals /hpf Amorphous Sediment Urine Bacteria (NEG) Coarse Granular Casts (0-2) /hpf Urine Other 06/19/16 Range/Units 19:35 WBC (4.5-11.0) 10^3/ul RBC (3.5-6.1) 10^6/uL Hgb (14.0-18.0) gm/dL Hct (42.0-52.0) % MCV (80.0-105.0) fL MCH (25.0-35.0) pg MCHC (31.0-37.0) g/dl RDW (11.5-14.5) % Plt Count (120.0-450.0) 10^3/uL MPV (7.0-11.0) fl pCO2 (35-45) mm/Hg pO2 (30-55) mm/Hg HCO3 (21-28) mmol/L ABG pH (7.35-7.45) ABG Total CO2 (22-28) mmol.L ABG O2 Saturation (95-98) % ABG O2 Content (15-23) ML/dl ABG Base Excess (-2.0-3.0) mmol/L ABG Hemoglobin (11.7-17.4) g/dL ABG Carboxyhemoglobin (0.5-1.5) % POC ABG HHb (Measured) (0-5) % ABG Methemoglobin (0.0-3.0) % ABG O2 Capacity (16-24) mL/dl VBG pH (7.32-7.43) VBG pCO2 (40-60) VBG HCO3 (21-28) mmol/l VBG Total CO2 (22-28) mmol.L VBG O2 Sat (Calc) (40-65) % VBG Base Excess (0.0-2.0) mmol/L VBG Potassium (3.6-5.2) mmol/L Hgb O2 Saturation (95.0-98.0) % Glucose (75-110) mg/dl Lactate (0.7-2.1) mmol/L FiO2 % Sodium (132-148) mmol/L Potassium (3.6-5.0) mmol/L Chloride (98-107) mmol/L Carbon Dioxide (21-33) mmol/L Anion Gap (10-20) BUN (7-21) mg/dL Creatinine (0.5-1.4) mg/dL Est GFR ( Amer) Est GFR (Non-Af Amer) POC Glucose (mg/dL) > 500 H* (65-110) mg/dL Random Glucose (70-110) mg/dL Lactic Acid (0.7-2.1) mmol/L Calcium (8.4-10.5) mg/dL Phosphorus (2.5-4.5) mg/dL Magnesium (1.7-2.2) mg/dL Triglycerides (35-160) mg/dL Cholesterol (130-200) mg/dL LDL Cholesterol Direct (0-129) mg/dL HDL Cholesterol (29-60) mg/dL Free T4 (0.78-2.19) ng/dL Venous Blood Potassium (3.6-5.2) mmol/L Urine Color (YELLOW) Urine Appearance (CLEAR) Urine pH (4.7-8.0) Ur Specific [place] (1.005-1.035) Urine Protein (<30 mg/dL) mg/dL Urine Glucose (UA) (NEGATIVE) mg/dL Urine Ketones (NEGATIVE) mg/dL Urine Blood (NEGATIVE) Urine Nitrate (NEGATIVE) Urine Bilirubin (NEGATIVE) Urine Urobilinogen (<1 E.U./dL) E.U./dL Ur Leukocyte Esterase (NEGATIVE) Maddie/uL Urine RBC (0-2) /hpf Urine WBC (0-6) /hpf Ur Epithelial Cells (0-5) /hpf Uric Acid Crystals /hpf Amorphous Sediment Urine Bacteria (NEG) Coarse Granular Casts (0-2) /hpf Urine Other Laboratory Results - last 24 hr 06/19/16 06/19/16 06/19/16 19:35 20:07 21:23 WBC RBC Hgb Hct MCV MCH MCHC RDW Plt Count MPV pCO2 pO2 HCO3 ABG pH ABG Total CO2 ABG O2 Saturation ABG O2 Content ABG Base Excess ABG Hemoglobin ABG Carboxyhemoglobin POC ABG HHb (Measured) ABG Methemoglobin ABG O2 Capacity VBG pH VBG pCO2 VBG HCO3 VBG Total CO2 VBG O2 Sat (Calc) VBG Base Excess VBG Potassium Hgb O2 Saturation Glucose Lactate FiO2 Sodium Potassium Chloride Carbon Dioxide Anion Gap BUN Creatinine Est GFR ( Amer) Est GFR (Non-Af Amer) POC Glucose (mg/dL) > 500 H* 423 H* 380 H Random Glucose Lactic Acid Calcium Phosphorus Magnesium Triglycerides Cholesterol LDL Cholesterol Direct HDL Cholesterol Free T4 Venous Blood Potassium Urine Color Urine Appearance Urine pH Ur Specific [place] Urine Protein Urine Glucose (UA) Urine Ketones Urine Blood Urine Nitrate Urine Bilirubin Urine Urobilinogen Ur Leukocyte Esterase Urine RBC Urine WBC Ur Epithelial Cells Uric Acid Crystals Amorphous Sediment Urine Bacteria Coarse Granular Casts Urine Other 06/19/16 06/19/16 06/19/16 22:28 23:15 23:15 WBC RBC Hgb Hct MCV MCH MCHC RDW Plt Count MPV pCO2 pO2 HCO3 ABG pH ABG Total CO2 ABG O2 Saturation ABG O2 Content ABG Base Excess ABG Hemoglobin ABG Carboxyhemoglobin POC ABG HHb (Measured) ABG Methemoglobin ABG O2 Capacity VBG pH VBG pCO2 VBG HCO3 VBG Total CO2 VBG O2 Sat (Calc) VBG Base Excess VBG Potassium Hgb O2 Saturation Glucose Lactate FiO2 Sodium 152 H Potassium 4.2 Chloride 116 H Carbon Dioxide 12 L Anion Gap 28 H BUN 18 Creatinine 1.2 Est GFR ( Amer) > 60 Est GFR (Non-Af Amer) > 60 POC Glucose (mg/dL) 339 H Random Glucose 242 H Lactic Acid 3.8 H Calcium 9.6 Phosphorus Magnesium Triglycerides Cholesterol LDL Cholesterol Direct HDL Cholesterol Free T4 Venous Blood Potassium Urine Color Urine Appearance Urine pH Ur Specific [place] Urine Protein Urine Glucose (UA) Urine Ketones Urine Blood Urine Nitrate Urine Bilirubin Urine Urobilinogen Ur Leukocyte Esterase Urine RBC Urine WBC Ur Epithelial Cells Uric Acid Crystals Amorphous Sediment Urine Bacteria Coarse Granular Casts Urine Other 06/19/16 06/19/16 06/19/16 23:15 23:20 23:38 WBC RBC Hgb Hct MCV MCH MCHC RDW Plt Count MPV pCO2 pO2 34 HCO3 ABG pH ABG Total CO2 ABG O2 Saturation ABG O2 Content ABG Base Excess ABG Hemoglobin ABG Carboxyhemoglobin POC ABG HHb (Measured) ABG Methemoglobin ABG O2 Capacity VBG pH 7.12 L* VBG pCO2 34.0 L VBG HCO3 11.1 L VBG Total CO2 12.1 L VBG O2 Sat (Calc) 60.9 VBG Base Excess -17.2 L VBG Potassium 4.3 Hgb O2 Saturation Glucose 257 H Lactate 4.0 H* FiO2 21.0 Sodium 148.0 Potassium Chloride 121.0 H Carbon Dioxide Anion Gap BUN Creatinine Est GFR ( Amer) Est GFR (Non-Af Amer) POC Glucose (mg/dL) 273 H Random Glucose Lactic Acid Calcium Phosphorus Magnesium Triglycerides Cholesterol LDL Cholesterol Direct HDL Cholesterol Free T4 1.31 Venous Blood Potassium 4.3 Urine Color Urine Appearance Urine pH Ur Specific [place] Urine Protein Urine Glucose (UA) Urine Ketones Urine Blood Urine Nitrate Urine Bilirubin Urine Urobilinogen Ur Leukocyte Esterase Urine RBC Urine WBC Ur Epithelial Cells Uric Acid Crystals Amorphous Sediment Urine Bacteria Coarse Granular Casts Urine Other 06/20/16 06/20/16 06/20/16 00:00 00:00 00:33 WBC RBC Hgb Hct MCV MCH MCHC RDW Plt Count MPV pCO2 21 L pO2 54.0 L HCO3 11.3 L ABG pH 7.34 L ABG Total CO2 11.9 L ABG O2 Saturation 90.8 L ABG O2 Content 16.3 ABG Base Excess -12.3 L ABG Hemoglobin 13.0 ABG Carboxyhemoglobin 1.2 POC ABG HHb (Measured) 9.0 H ABG Methemoglobin 0.8 ABG O2 Capacity 18.0 VBG pH VBG pCO2 VBG HCO3 VBG Total CO2 VBG O2 Sat (Calc) VBG Base Excess VBG Potassium Hgb O2 Saturation 89.0 L Glucose Lactate FiO2 21.0 Sodium Potassium Chloride Carbon Dioxide Anion Gap BUN Creatinine Est GFR ( Amer) Est GFR (Non-Af Amer) POC Glucose (mg/dL) 236 H Random Glucose Lactic Acid Calcium Phosphorus 2.2 L Magnesium 2.6 H Triglycerides Cholesterol LDL Cholesterol Direct HDL Cholesterol Free T4 Venous Blood Potassium Urine Color Urine Appearance Urine pH Ur Specific [place] Urine Protein Urine Glucose (UA) Urine Ketones Urine Blood Urine Nitrate Urine Bilirubin Urine Urobilinogen Ur Leukocyte Esterase Urine RBC Urine WBC Ur Epithelial Cells Uric Acid Crystals Amorphous Sediment Urine Bacteria Coarse Granular Casts Urine Other 06/20/16 06/20/16 06/20/16 01:47 02:40 03:33 WBC RBC Hgb Hct MCV MCH MCHC RDW Plt Count MPV pCO2 pO2 HCO3 ABG pH ABG Total CO2 ABG O2 Saturation ABG O2 Content ABG Base Excess ABG Hemoglobin ABG Carboxyhemoglobin POC ABG HHb (Measured) ABG Methemoglobin ABG O2 Capacity VBG pH VBG pCO2 VBG HCO3 VBG Total CO2 VBG O2 Sat (Calc) VBG Base Excess VBG Potassium Hgb O2 Saturation Glucose Lactate FiO2 Sodium Potassium Chloride Carbon Dioxide Anion Gap BUN Creatinine Est GFR ( Amer) Est GFR (Non-Af Amer) POC Glucose (mg/dL) 231 H 268 H 284 H Random Glucose Lactic Acid Calcium Phosphorus Magnesium Triglycerides Cholesterol LDL Cholesterol Direct HDL Cholesterol Free T4 Venous Blood Potassium Urine Color Urine Appearance Urine pH Ur Specific [place] Urine Protein Urine Glucose (UA) Urine Ketones Urine Blood Urine Nitrate Urine Bilirubin Urine Urobilinogen Ur Leukocyte Esterase Urine RBC Urine WBC Ur Epithelial Cells Uric Acid Crystals Amorphous Sediment Urine Bacteria Coarse Granular Casts Urine Other 06/20/16 06/20/16 06/20/16 04:00 04:00 04:00 WBC 5.4 D RBC 4.90 Hgb 13.2 L Hct 40.6 L MCV 82.9 MCH 26.9 MCHC 32.5 RDW 14.2 Plt Count 133 MPV 13.1 H pCO2 pO2 51 HCO3 ABG pH ABG Total CO2 ABG O2 Saturation ABG O2 Content ABG Base Excess ABG Hemoglobin ABG Carboxyhemoglobin POC ABG HHb (Measured) ABG Methemoglobin ABG O2 Capacity VBG pH 7.36 VBG pCO2 26.0 L VBG HCO3 14.7 L VBG Total CO2 VBG O2 Sat (Calc) 89.2 H VBG Base Excess -9.1 L VBG Potassium Hgb O2 Saturation Glucose Lactate FiO2 Sodium 151 H Potassium 4.5 Chloride 118 H Carbon Dioxide 14 L Anion Gap 24 H BUN 17 Creatinine 1.2 Est GFR ( Amer) > 60 Est GFR (Non-Af Amer) > 60 POC Glucose (mg/dL) Random Glucose 272 H Lactic Acid Calcium 9.1 Phosphorus Magnesium 2.3 H Triglycerides 59 Cholesterol 144 LDL Cholesterol Direct 58 HDL Cholesterol 37 Free T4 Venous Blood Potassium Urine Color Urine Appearance Urine pH Ur Specific [place] Urine Protein Urine Glucose (UA) Urine Ketones Urine Blood Urine Nitrate Urine Bilirubin Urine Urobilinogen Ur Leukocyte Esterase Urine RBC Urine WBC Ur Epithelial Cells Uric Acid Crystals Amorphous Sediment Urine Bacteria Coarse Granular Casts Urine Other 06/20/16 06/20/16 06/20/16 04:37 05:00 05:48 WBC RBC Hgb Hct MCV MCH MCHC RDW Plt Count MPV pCO2 26 L pO2 62.0 L HCO3 15.0 L ABG pH 7.37 ABG Total CO2 15.8 L ABG O2 Saturation 94.4 L ABG O2 Content 16.3 ABG Base Excess -8.7 L ABG Hemoglobin 12.6 ABG Carboxyhemoglobin 1.5 POC ABG HHb (Measured) 5.5 H ABG Methemoglobin 0.9 ABG O2 Capacity 17.3 VBG pH VBG pCO2 VBG HCO3 VBG Total CO2 VBG O2 Sat (Calc) VBG Base Excess VBG Potassium Hgb O2 Saturation 92.2 L Glucose Lactate FiO2 28.0 Sodium Potassium Chloride Carbon Dioxide Anion Gap BUN Creatinine Est GFR ( Amer) Est GFR (Non-Af Amer) POC Glucose (mg/dL) 283 H 298 H Random Glucose Lactic Acid Calcium Phosphorus Magnesium Triglycerides Cholesterol LDL Cholesterol Direct HDL Cholesterol Free T4 Venous Blood Potassium Urine Color Urine Appearance Urine pH Ur Specific [place] Urine Protein Urine Glucose (UA) Urine Ketones Urine Blood Urine Nitrate Urine Bilirubin Urine Urobilinogen Ur Leukocyte Esterase Urine RBC Urine WBC Ur Epithelial Cells Uric Acid Crystals Amorphous Sediment Urine Bacteria Coarse Granular Casts Urine Other 06/20/16 06/20/16 06/20/16 06:46 06:51 08:12 WBC RBC Hgb Hct MCV MCH MCHC RDW Plt Count MPV pCO2 pO2 HCO3 ABG pH ABG Total CO2 ABG O2 Saturation ABG O2 Content ABG Base Excess ABG Hemoglobin ABG Carboxyhemoglobin POC ABG HHb (Measured) ABG Methemoglobin ABG O2 Capacity VBG pH VBG pCO2 VBG HCO3 VBG Total CO2 VBG O2 Sat (Calc) VBG Base Excess VBG Potassium Hgb O2 Saturation Glucose Lactate FiO2 Sodium Potassium Chloride Carbon Dioxide Anion Gap BUN Creatinine Est GFR ( Amer) Est GFR (Non-Af Amer) POC Glucose (mg/dL) 277 H 278 H Random Glucose Lactic Acid Calcium Phosphorus Magnesium Triglycerides Cholesterol LDL Cholesterol Direct HDL Cholesterol Free T4 Venous Blood Potassium Urine Color Yellow Urine Appearance Sl cloudy Urine pH 5.5 Ur Specific [place] 1.025 Urine Protein 100 H Urine Glucose (UA) 100 H Urine Ketones 40 H Urine Blood Large H Urine Nitrate Negative Urine Bilirubin Small H Urine Urobilinogen 1.0 H Ur Leukocyte Esterase Negative Urine RBC 2 - 5 Urine WBC 0 - 2 Ur Epithelial Cells 0 - 2 Uric Acid Crystals Few Amorphous Sediment Few Urine Bacteria Mod Coarse Granular Casts Small H Urine Other [place] 06/20/16 09:04 WBC RBC Hgb Hct MCV MCH MCHC RDW Plt Count MPV pCO2 pO2 HCO3 ABG pH ABG Total CO2 ABG O2 Saturation ABG O2 Content ABG Base Excess ABG Hemoglobin ABG Carboxyhemoglobin POC ABG HHb (Measured) ABG Methemoglobin ABG O2 Capacity VBG pH VBG pCO2 VBG HCO3 VBG Total CO2 VBG O2 Sat (Calc) VBG Base Excess VBG Potassium Hgb O2 Saturation Glucose Lactate FiO2 Sodium Potassium Chloride Carbon Dioxide Anion Gap BUN Creatinine Est GFR ( Amer) Est GFR (Non-Af Amer) POC Glucose (mg/dL) 287 H Random Glucose Lactic Acid Calcium Phosphorus Magnesium Triglycerides Cholesterol LDL Cholesterol Direct HDL Cholesterol Free T4 Venous Blood Potassium Urine Color Urine Appearance Urine pH Ur Specific [place] Urine Protein Urine Glucose (UA) Urine Ketones Urine Blood Urine Nitrate Urine Bilirubin Urine Urobilinogen Ur Leukocyte Esterase Urine RBC Urine WBC Ur Epithelial Cells Uric Acid Crystals Amorphous Sediment Urine Bacteria Coarse Granular Casts Urine Other EKG/Cardiology Studies: Cardiology / EKG Studies 06/20/16 05:00 EKG [ELECTROCARDIOGRAM] Routine Comment: Reason For Exam: rule out hyperkalemic changes Fingerstick Blood Sugar Results: 287 Review of Systems - Review of Systems All systems: reviewed and no additional remarkable complaints except (lethargy , SOB) - EENT Eyes: UNREMARKABLE Critical Care Progress Note - Ventilator Checklist Head of Bed 30 Degrees: Yes Daily Sedation Vacation: Yes PUD Prophalyxis: Yes - Nutrition Nutrition: Nutrition Category Date Time Status Liquid Diet [DIET] Diets 06/20/16 Breakfast Ordered Assessment/Plan - Assessment and Plan (Free Text) Assessment: 61 y/o M w/ Lethargy , SOB found to have DKA DKA On DKA protocol On Insulin drip to manage BS and titrate as the AG closes. On Normal saline until BS < 200 and change to D5W @ 125ml/ hr Replete K and Mg as needed. NPO. Until GAP closes. Can drink water. BMP q 4 hrs. On empiric abx . NON compliance w/ DM medications HTN Placed back on HTN medications currently SBP <160. SOB SOB and cough noted, possible URI No TB risk , no travel, sick contacts, fevers night sweats etc. CXR reviewed - no findings of dense Upper lobe findings , cavitary lesions etc. CT Chest/abd/pelvis orders due to recent weight loss. CX drawn. On Inhalers PRN. No smoking hx. Mild blood tinged sputum at home x1 day. Will quantify sputum if it worsens. No isolation indicated at this point dvt p Heparin sq tid cc time 65 min
--- NOTE | 2016-06-20 09:55 | CARD ---
APPROVED REPORT EKG Measurement Heart [id number] [place] 132P68 [id number] <Conclusion> Sinus tachycardia Biatrial enlargement Nonspecific T wave abnormality ASMI, age unknown IVCD
[2016-06-20] MEDS ORDERED: levoFLOXacin 500 mg in D5W 500 MG/100 ML BAG IVPB SCH (10:00)
--- NOTE | 2016-06-20 10:09 | CARD ---
APPROVED REPORT EKG Measurement Heart [id number] [place] 120P51 [id number] <Conclusion> Normal sinus rhythm Minimal voltage criteria for LVH NSSTW changes
[2016-06-20 10:23] LABS: BLOOD UREA NITROGEN 16 mg/dL (7-21); CALCIUM 8.7 mg/dL (8.4-10.5); CARBON DIOXIDE 17 mmol/L (21-33); CHLORIDE 116 mmol/L (98-107); GFR AFRICAN-AMERICAN > 60; MAGNESIUM 2.3 mg/dL (1.7-2.2); PHOSPHOROUS 1.7 mg/dL (2.5-4.5); POTASSIUM 4.1 mmol/L (3.6-5.0); SODIUM 145 mmol/L (132-148)
[2016-06-20 10:38] LABS: GLUCOSE,RANDOM 366 mg/dL (70-110)
--- NOTE | 2016-06-20 11:17 | CP.PCM.PN ---
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 Will review history further and decide on possible bronchoscopy as well. Objective - Vital Signs/Intake and Output Vital Signs (last 24 hours): Temp Pulse Resp BP Pulse Ox 100.4 F H 88 31 H 144/88 94 L 06/20/16 06:07 06/20/16 09:15 06/20/16 07:20 06/20/16 09:16 06/20/16 07:20 Intake and Output: 06/20/16 06/20/16 06:59 18:59 Intake Total 2123 18 Output Total 1400 Balance 723 18 - Medications Medications: Current Medications Acetaminophen (Tylenol 325mg Tab) 650 mg PO Q6H PRN PRN Reason: Fever >100.4 F Last Admin: 06/20/16 06:07 Dose: 650 mg Amlodipine Besylate (Norvasc) 10 mg PO DAILY [facility] Last Admin: 06/20/16 09:16 Dose: 10 mg Clonidine HCl (Catapres) 0.1 mg PO TID PRN PRN Reason: Systolic Blood Pressure Last Admin: 06/20/16 09:15 Dose: 0.1 mg Vancomycin HCl (Vancomycin 1gm) 1 gm in 250 mls @ 167 mls/hr IVPB Q12H LYN PRN Reason: Protocol Last Admin: 06/20/16 01:02 Dose: 167 mls/hr Piperacillin Sod/Tazobactam Sod (Zosyn 3.375 In Ns 100ml) 100 mls @ 200 mls/hr IVPB Q6 LYN PRN Reason: Protocol Stop: 06/20/16 12:29 Last Admin: 06/20/16 06:47 Dose: 200 mls/hr Potassium Chloride 20 meq/ (Dextrose/Sodium Chloride) 1,010 mls @ 150 mls/hr IV .Q6H44M [facility] Last Admin: 06/20/16 09:39 Dose: 150 mls/hr Insulin Human Regular 100 (units/ Sodium Chloride) 100 mls @ 5 mls/hr IV .Q20H PRN; Protocol; 5 UNITS/HR PRN Reason: TITRATE PER MD ORDER Last Admin: 06/20/16 10:52 Dose: 6 units/hr, 6 mls/hr Lisinopril (Zestril) 30 mg PO DAILY [facility] Last Admin: 06/20/16 09:15 Dose: 30 mg Metoclopramide HCl (Reglan) 10 mg IVP Q6H PRN PRN Reason: Nausea/Vomiting Pantoprazole Sodium (Protonix Inj) 40 mg IVP DAILY [facility] Last Admin: 06/20/16 09:17 Dose: 40 mg - Labs Labs: 06/20/16 04:00 06/20/16 10:10 PT 10.7 Seconds (9.9-11.8) 06/19/16 18:15 INR 0.99 (0.93-1.08) 06/19/16 18:15 APTT 30.8 Seconds (23.7-30.8) 06/19/16 18:15
--- NOTE | 2016-06-20 11:33 | CT ---
PROCEDURE: CT Chest, Abdomen and Pelvis without intravenous contrast HISTORY: r/o Malignancy COMPARISON: None. TECHNIQUE: Radiation dose: Total exam DLP = 747.43 mGy-cm. This CT exam was performed using one or more of the following dose reduction techniques: Automated exposure control, adjustment of the mA and/or kV according to patient size, and/or use of iterative reconstruction technique. FINDINGS: CT CHEST WITHOUT CONTRAST: LUNGS: Multifocal airspace opacities throughout both lungs particularly on the right. Extensive tree-in-bud opacification in both lungs right greater than left. Visualized airways are clear. Evaluation of small pulmonary nodules is suboptimal given the setting. MEDIASTINUM: The heart is not enlarged. There is no significant pericardial effusion. Calcification of the coronary arteries. LYMPH NODES: Small lymph nodes in the mediastinum. Some of which are calcified. Hilar lymphadenopathy also seen some of which are calcified. Otherwise lymphadenopathy is somewhat limited in evaluation given lack of intravenous contrast. PLEURA: Questionable small effusion on the right. BONES: Unremarkable. OTHER FINDINGS: None. CT ABDOMEN AND PELVIS: LIVER: Punctate calcification in the junction of the right and left hepatic lobes likely from old granulomatous disease. GALLBLADDER AND BILE DUCTS: Unremarkable. PANCREAS: Unremarkable. No gross lesion or ductal dilatation. SPLEEN: Unremarkable. ADRENALS: Diffuse thickening of both adrenal glands. KIDNEYS AND URETERS: Small cysts in both kidneys. Nonobstructing calculi seen bilaterally. No hydronephrosis or hydroureter. VASCULATURE: Scattered atherosclerotic calcification throughout the abdominal aorta. Mild ectasia of the abdominal aorta near the renal arteries measuring approximately 2.7 centimeter. BOWEL: Unremarkable. No obstruction. No gross mural thickening. APPENDIX: Normal appendix. PERITONEUM: Unremarkable. No free fluid. No free air. LYMPH NODES: Unremarkable. No enlarged lymph nodes. BLADDER: Unremarkable. REPRODUCTIVE: Enlarged prostate. BONES: No acute fracture. OTHER FINDINGS: None. IMPRESSION: Multifocal airspace opacities in the lungs with extensive tree-in-bud opacification throughout both lungs. Findings are more prominent on the right lung when compared to the left. Questionable small pleural effusion on the right. Small partially calcified lymph nodes in the mediastinum. Given these findings, differential diagnosis will include tuberculosis. Evaluation of pulmonary nodules are suboptimal given the setting. Repeat evaluation can be considered as per clinical indications. Abdominal findings as above. Findings were discussed with Dr. Olson at approximately 11:15 a.m. on 06/20/2016.
[2016-06-20 13:28] LABS: FT3 1.85 pg/mL (2.77-5.27)
[2016-06-20 13:34] LABS: ALB/GLOB RATIO 0.7 (1.1-1.8); ALKALINE PHOSPHATASE 46 U/L (38-133); ALT/SGPT 23 U/L (7-56); AST/SGOT 26 U/L (15-59); BILIRUBIN,TOTAL 0.9 mg/dL (0.2-1.3); BLOOD UREA NITROGEN 16 mg/dL (7-21); CALCIUM 8.3 mg/dL (8.4-10.5); CARBON DIOXIDE 15 mmol/L (21-33); CHLORIDE 116 mmol/L (95-110); GFR AFRICAN-AMERICAN > 60; MAGNESIUM 2.3 mg/dL (1.7-2.2); PHOSPHOROUS 1.5 mg/dL (2.5-4.5); POTASSIUM 4.1 mmol/L (3.6-5.0); SODIUM 142 mmol/L (132-148)
[2016-06-20 14:01] LABS: GLUCOSE,RANDOM 306 mg/dL (70-110)
[2016-06-20] MEDS ORDERED: Sodium Chloride 0.9% 1,000 ML IV STA (14:38)
[2016-06-20 16:04] LABS: ALB/GLOB RATIO 0.7 (1.1-1.8); ALKALINE PHOSPHATASE 56 U/L (38-133); ALT/SGPT 23 U/L (7-56); AST/SGOT 23 U/L (15-59); BILIRUBIN,TOTAL 0.9 mg/dL (0.2-1.3); BLOOD UREA NITROGEN 15 mg/dL (7-21); CARBON DIOXIDE 20 mmol/L (21-33); CHLORIDE 114 mmol/L (98-107); GFR AFRICAN-AMERICAN > 60; GLUCOSE,RANDOM 111 mg/dL (70-110); POTASSIUM 4.1 mmol/L (3.6-5.0); SODIUM 147 mmol/L (132-148); TOTAL PROTEIN 7.8 g/dL (5.8-8.3)
--- NOTE | 2016-06-20 17:55 | CP.PCM.CON ---
History of Present Illness - History of Present Illness History of Present Illness: Infectious Disease Consultation: June 20, 2016 61 yo male with presentation of 2 days of generalized weakness, polydysia, polyuria, hemoptysis, cough with green-colored sputum, intermittent confusion and some mild SOB. On CT scan, tree in bud formations seen. Patient placed under respiratory isolation for TB workup. The patient has no recent travel history. 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 Prior to that, he worked for a [employer] for 7 years. Extensive pulmonary findings on CT scan. Case discussed with Dr. Olson. PMHx: diabetes mellitus non-compliant with meds PSHx: Cardiac Catherization Allergies: NKDA Social Hx: No current tobacco, EtOH, or illicit drug use. Prior tobacco and EtOH use. Active Medications Acetaminophen (Tylenol 325mg Tab) 650 mg PO Q6H PRN PRN Reason: Fever >100.4 F Last Admin: 06/20/16 06:07 Dose: 650 mg Amlodipine Besylate (Norvasc) 10 mg PO DAILY [facility] Last Admin: 06/20/16 09:16 Dose: 10 mg Clonidine HCl (Catapres) 0.1 mg PO TID PRN PRN Reason: Systolic Blood Pressure Last Admin: 06/20/16 09:15 Dose: 0.1 mg Vancomycin HCl (Vancomycin 1gm) 1 gm in 250 mls @ 167 mls/hr IVPB Q12H LYN PRN Reason: Protocol Last Admin: 06/20/16 11:49 Dose: 167 mls/hr Piperacillin Sod/Tazobactam Sod (Zosyn 3.375 In Ns 100ml) 100 mls @ 200 mls/hr IVPB Q6 LYN PRN Reason: Protocol Stop: 06/21/16 00:29 Last Admin: 06/20/16 17:18 Dose: 200 mls/hr Insulin Human Regular 100 (units/ Sodium Chloride) 100 mls @ 5 mls/hr IV .Q20H PRN; Protocol; 5 UNITS/HR PRN Reason: TITRATE PER MD ORDER Last Admin: 06/20/16 17:14 Dose: 0.5 units/hr, 0.5 mls/hr Lisinopril (Zestril) 30 mg PO DAILY [facility] Last Admin: 06/20/16 09:15 Dose: 30 mg Metoclopramide HCl (Reglan) 10 mg IVP Q6H PRN PRN Reason: Nausea/Vomiting Pantoprazole Sodium (Protonix Inj) 40 mg IVP DAILY [facility] Last Admin: 06/20/16 09:17 Dose: 40 mg Family Hx: none given ROS: No fevers, chills, nausea, vomiting, diarrhea, headaches, melena, hematochezia, depression, anxiety, hematemesis, hematuria, cough, SOB, dysnpna. Past Patient History - Tetanus Immunizations Tetanus Immunization: Unknown - Past Social History Smoking Status: Former Smoker - CARDIAC Hx Hypertension: Yes - ENDOCRINE/METABOLIC Hx Diabetes Mellitus Type 2: Yes - MUSCULOSKELETAL/RHEUMATOLOGICAL Hx Falls: No - GASTROINTESTINAL Hx Ulcer: Yes (1984) - PSYCHIATRIC Hx Depression: No Hx Emotional Abuse: No Hx Physical Abuse: No Hx Substance Use: No - SURGICAL HISTORY Hx Cardiac Catheterization: Yes - ANESTHESIA Hx Anesthesia: No Meds Allergies/Adverse Reactions: Allergies Allergy/AdvReac Type Severity Reaction Status Date / Time No Known Allergies Allergy Verified 06/19/16 17:38 - Medications Medications: Current Medications Acetaminophen (Tylenol 325mg Tab) 650 mg PO Q6H PRN PRN Reason: Fever >100.4 F Last Admin: 06/20/16 06:07 Dose: 650 mg Amlodipine Besylate (Norvasc) 10 mg PO DAILY [facility] Last Admin: 06/20/16 09:16 Dose: 10 mg Clonidine HCl (Catapres) 0.1 mg PO TID PRN PRN Reason: Systolic Blood Pressure Last Admin: 06/20/16 09:15 Dose: 0.1 mg Vancomycin HCl (Vancomycin 1gm) 1 gm in 250 mls @ 167 mls/hr IVPB Q12H [facility] PRN Reason: Protocol Last Admin: 06/20/16 11:49 Dose: 167 mls/hr Piperacillin Sod/Tazobactam Sod (Zosyn 3.375 In Ns 100ml) 100 mls @ 200 mls/hr IVPB Q6 [facility] PRN Reason: Protocol Stop: 06/21/16 00:29 Last Admin: 06/20/16 17:18 Dose: 200 mls/hr Insulin Human Regular 100 (units/ Sodium Chloride) 100 mls @ 5 mls/hr IV .Q20H PRN; Protocol; 5 UNITS/HR PRN Reason: TITRATE PER MD ORDER Last Admin: 06/20/16 17:14 Dose: 0.5 units/hr, 0.5 mls/hr Lisinopril (Zestril) 30 mg PO DAILY [facility] Last Admin: 06/20/16 09:15 Dose: 30 mg Metoclopramide HCl (Reglan) 10 mg IVP Q6H PRN PRN Reason: Nausea/Vomiting Pantoprazole Sodium (Protonix Inj) 40 mg IVP DAILY [facility] Last Admin: 06/20/16 09:17 Dose: 40 mg Physical Exam - Constitutional Appears: Non-toxic, No Acute Distress, Chronically Ill Additional comments: generally weak - Head Exam Head Exam: ATRAUMATIC, NORMOCEPHALIC - Eye Exam Eye Exam: EOMI, PERRL Pupil Exam: NORMAL ACCOMODATION, PERRL - ENT Exam ENT Exam: Mucous Membranes Moist, Normal External Ear Exam, TM's Normal Bilaterally - Neck Exam Neck exam: Positive for: Full Rom, Normal Inspection - Respiratory Exam Respiratory Exam: Clear to Auscultation Bilateral, NORMAL BREATHING PATTERN. absent: Rales, Rhonchi, Wheezes - Cardiovascular Exam Cardiovascular Exam: REGULAR RHYTHM, RRR, +S1, +S2 - GI/Abdominal Exam GI & Abdominal Exam: Normal Bowel Sounds, Soft. absent: Distended, Tenderness - Extremities Exam Extremities exam: Positive for: full ROM, normal inspection - Neurological Exam Neurological exam: Alert, CN II-XII Intact, Oriented x3 - Psychiatric Exam Psychiatric exam: Normal Affect, Normal Mood - Skin Skin Exam: Intact, Normal Color Results - Vital Signs Recent Vital Signs: Last Vital Signs Temp 99.2 F 06/20/16 16:19 Pulse 81 06/20/16 11:40 Resp 42 H 06/20/16 11:40 BP 131/68 06/20/16 11:30 Pulse Ox 97 06/20/16 11:40 - Labs Result Diagrams: 06/20/16 04:00 06/20/16 15:20 Labs: Laboratory Results - last 24 hr 06/19/16 06/19/16 06/19/16 19:35 20:07 21:23 WBC RBC Hgb Hct MCV MCH MCHC RDW Plt Count MPV pCO2 pO2 HCO3 ABG pH ABG Total CO2 ABG O2 Saturation ABG O2 Content ABG Base Excess ABG Hemoglobin ABG Carboxyhemoglobin POC ABG HHb (Measured) ABG Methemoglobin ABG O2 Capacity VBG pH VBG pCO2 VBG HCO3 VBG Total CO2 VBG O2 Sat (Calc) VBG Base Excess VBG Potassium Hgb O2 Saturation Glucose Lactate FiO2 Sodium Potassium Chloride Carbon Dioxide Anion Gap BUN Creatinine Est GFR ( Amer) Est GFR (Non-Af Amer) POC Glucose (mg/dL) > 500 H* 423 H* 380 H Random Glucose Lactic Acid Calcium Phosphorus Magnesium Total Bilirubin AST ALT Alkaline Phosphatase Total Protein Albumin Globulin Albumin/Globulin Ratio Triglycerides Cholesterol LDL Cholesterol Direct HDL Cholesterol Procalcitonin Free T4 Venous Blood Potassium Urine Color Urine Appearance Urine pH Ur Specific [place] Urine Protein Urine Glucose (UA) Urine Ketones Urine Blood Urine Nitrate Urine Bilirubin Urine Urobilinogen Ur Leukocyte Esterase Urine RBC Urine WBC Ur Epithelial Cells Uric Acid Crystals Amorphous Sediment Urine Bacteria Coarse Granular Casts Urine Other 06/19/16 06/19/16 06/19/16 22:28 23:15 23:15 WBC RBC Hgb Hct MCV MCH MCHC RDW Plt Count MPV pCO2 pO2 HCO3 ABG pH ABG Total CO2 ABG O2 Saturation ABG O2 Content ABG Base Excess ABG Hemoglobin ABG Carboxyhemoglobin POC ABG HHb (Measured) ABG Methemoglobin ABG O2 Capacity VBG pH VBG pCO2 VBG HCO3 VBG Total CO2 VBG O2 Sat (Calc) VBG Base Excess VBG Potassium Hgb O2 Saturation Glucose Lactate FiO2 Sodium 152 H Potassium 4.2 Chloride 116 H Carbon Dioxide 12 L Anion Gap 28 H BUN 18 Creatinine 1.2 Est GFR ( Amer) > 60 Est GFR (Non-Af Amer) > 60 POC Glucose (mg/dL) 339 H Random Glucose 242 H Lactic Acid 3.8 H Calcium 9.6 Phosphorus Magnesium Total Bilirubin AST ALT Alkaline Phosphatase Total Protein Albumin Globulin Albumin/Globulin Ratio Triglycerides Cholesterol LDL Cholesterol Direct HDL Cholesterol Procalcitonin Free T4 Venous Blood Potassium Urine Color Urine Appearance Urine pH Ur Specific [place] Urine Protein Urine Glucose (UA) Urine Ketones Urine Blood Urine Nitrate Urine Bilirubin Urine Urobilinogen Ur Leukocyte Esterase Urine RBC Urine WBC Ur Epithelial Cells Uric Acid Crystals Amorphous Sediment Urine Bacteria Coarse Granular Casts Urine Other 06/19/16 06/19/16 06/19/16 23:15 23:15 23:20 WBC RBC Hgb Hct MCV MCH MCHC RDW Plt Count MPV pCO2 pO2 34 HCO3 ABG pH ABG Total CO2 ABG O2 Saturation ABG O2 Content ABG Base Excess ABG Hemoglobin ABG Carboxyhemoglobin POC ABG HHb (Measured) ABG Methemoglobin ABG O2 Capacity VBG pH 7.12 L* VBG pCO2 34.0 L VBG HCO3 11.1 L VBG Total CO2 12.1 L VBG O2 Sat (Calc) 60.9 VBG Base Excess -17.2 L VBG Potassium 4.3 Hgb O2 Saturation Glucose 257 H Lactate 4.0 H* FiO2 21.0 Sodium 148.0 Potassium Chloride 121.0 H Carbon Dioxide Anion Gap BUN Creatinine Est GFR ( Amer) Est GFR (Non-Af Amer) POC Glucose (mg/dL) Random Glucose Lactic Acid Calcium Phosphorus Magnesium Total Bilirubin AST ALT Alkaline Phosphatase Total Protein Albumin Globulin Albumin/Globulin Ratio Triglycerides Cholesterol LDL Cholesterol Direct HDL Cholesterol Procalcitonin 20.42 H Free T4 1.31 Venous Blood Potassium 4.3 Urine Color Urine Appearance Urine pH Ur Specific [place] Urine Protein Urine Glucose (UA) Urine Ketones Urine Blood Urine Nitrate Urine Bilirubin Urine Urobilinogen Ur Leukocyte Esterase Urine RBC Urine WBC Ur Epithelial Cells Uric Acid Crystals Amorphous Sediment Urine Bacteria Coarse Granular Casts Urine Other 06/19/16 06/20/16 06/20/16 23:38 00:00 00:00 WBC RBC Hgb Hct MCV MCH MCHC RDW Plt Count MPV pCO2 21 L pO2 54.0 L HCO3 11.3 L ABG pH 7.34 L ABG Total CO2 11.9 L ABG O2 Saturation 90.8 L ABG O2 Content 16.3 ABG Base Excess -12.3 L ABG Hemoglobin 13.0 ABG Carboxyhemoglobin 1.2 POC ABG HHb (Measured) 9.0 H ABG Methemoglobin 0.8 ABG O2 Capacity 18.0 VBG pH VBG pCO2 VBG HCO3 VBG Total CO2 VBG O2 Sat (Calc) VBG Base Excess VBG Potassium Hgb O2 Saturation 89.0 L Glucose Lactate FiO2 21.0 Sodium Potassium Chloride Carbon Dioxide Anion Gap BUN Creatinine Est GFR ( Amer) Est GFR (Non-Af Amer) POC Glucose (mg/dL) 273 H Random Glucose Lactic Acid Calcium Phosphorus 2.2 L Magnesium 2.6 H Total Bilirubin AST ALT Alkaline Phosphatase Total Protein Albumin Globulin Albumin/Globulin Ratio Triglycerides Cholesterol LDL Cholesterol Direct HDL Cholesterol Procalcitonin Free T4 Venous Blood Potassium Urine Color Urine Appearance Urine pH Ur Specific [place] Urine Protein Urine Glucose (UA) Urine Ketones Urine Blood Urine Nitrate Urine Bilirubin Urine Urobilinogen Ur Leukocyte Esterase Urine RBC Urine WBC Ur Epithelial Cells Uric Acid Crystals Amorphous Sediment Urine Bacteria Coarse Granular Casts Urine Other 06/20/16 06/20/16 06/20/16 00:33 01:47 02:40 WBC RBC Hgb Hct MCV MCH MCHC RDW Plt Count MPV pCO2 pO2 HCO3 ABG pH ABG Total CO2 ABG O2 Saturation ABG O2 Content ABG Base Excess ABG Hemoglobin ABG Carboxyhemoglobin POC ABG HHb (Measured) ABG Methemoglobin ABG O2 Capacity VBG pH VBG pCO2 VBG HCO3 VBG Total CO2 VBG O2 Sat (Calc) VBG Base Excess VBG Potassium Hgb O2 Saturation Glucose Lactate FiO2 Sodium Potassium Chloride Carbon Dioxide Anion Gap BUN Creatinine Est GFR ( Amer) Est GFR (Non-Af Amer) POC Glucose (mg/dL) 236 H 231 H 268 H Random Glucose Lactic Acid Calcium Phosphorus Magnesium Total Bilirubin AST ALT Alkaline Phosphatase Total Protein Albumin Globulin Albumin/Globulin Ratio Triglycerides Cholesterol LDL Cholesterol Direct HDL Cholesterol Procalcitonin Free T4 Venous Blood Potassium Urine Color Urine Appearance Urine pH Ur Specific [place] Urine Protein Urine Glucose (UA) Urine Ketones Urine Blood Urine Nitrate Urine Bilirubin Urine Urobilinogen Ur Leukocyte Esterase Urine RBC Urine WBC Ur Epithelial Cells Uric Acid Crystals Amorphous Sediment Urine Bacteria Coarse Granular Casts Urine Other 06/20/16 06/20/16 06/20/16 03:33 04:00 04:00 WBC RBC Hgb Hct MCV MCH MCHC RDW Plt Count MPV pCO2 pO2 51 HCO3 ABG pH ABG Total CO2 ABG O2 Saturation ABG O2 Content ABG Base Excess ABG Hemoglobin ABG Carboxyhemoglobin POC ABG HHb (Measured) ABG Methemoglobin ABG O2 Capacity VBG pH 7.36 VBG pCO2 26.0 L VBG HCO3 14.7 L VBG Total CO2 VBG O2 Sat (Calc) 89.2 H VBG Base Excess -9.1 L VBG Potassium Hgb O2 Saturation Glucose Lactate FiO2 Sodium 151 H Potassium 4.5 Chloride 118 H Carbon Dioxide 14 L Anion Gap 24 H BUN 17 Creatinine 1.2 Est GFR ( Amer) > 60 Est GFR (Non-Af Amer) > 60 POC Glucose (mg/dL) 284 H Random Glucose 272 H Lactic Acid Calcium 9.1 Phosphorus Magnesium 2.3 H Total Bilirubin AST ALT Alkaline Phosphatase Total Protein Albumin Globulin Albumin/Globulin Ratio Triglycerides 59 Cholesterol 144 LDL Cholesterol Direct 58 HDL Cholesterol 37 Procalcitonin Free T4 Venous Blood Potassium Urine Color Urine Appearance Urine pH Ur Specific [place] Urine Protein Urine Glucose (UA) Urine Ketones Urine Blood Urine Nitrate Urine Bilirubin Urine Urobilinogen Ur Leukocyte Esterase Urine RBC Urine WBC Ur Epithelial Cells Uric Acid Crystals Amorphous Sediment Urine Bacteria Coarse Granular Casts Urine Other 06/20/16 06/20/16 06/20/16 04:00 04:37 05:00 WBC 5.4 D RBC 4.90 Hgb 13.2 L Hct 40.6 L MCV 82.9 MCH 26.9 MCHC 32.5 RDW 14.2 Plt Count 133 MPV 13.1 H pCO2 26 L pO2 62.0 L HCO3 15.0 L ABG pH 7.37 ABG Total CO2 15.8 L ABG O2 Saturation 94.4 L ABG O2 Content 16.3 ABG Base Excess -8.7 L ABG Hemoglobin 12.6 ABG Carboxyhemoglobin 1.5 POC ABG HHb (Measured) 5.5 H ABG Methemoglobin 0.9 ABG O2 Capacity 17.3 VBG pH VBG pCO2 VBG HCO3 VBG Total CO2 VBG O2 Sat (Calc) VBG Base Excess VBG Potassium Hgb O2 Saturation 92.2 L Glucose Lactate FiO2 28.0 Sodium Potassium Chloride Carbon Dioxide Anion Gap BUN Creatinine Est GFR ( Amer) Est GFR (Non-Af Amer) POC Glucose (mg/dL) 283 H Random Glucose Lactic Acid Calcium Phosphorus Magnesium Total Bilirubin AST ALT Alkaline Phosphatase Total Protein Albumin Globulin Albumin/Globulin Ratio Triglycerides Cholesterol LDL Cholesterol Direct HDL Cholesterol Procalcitonin Free T4 Venous Blood Potassium Urine Color Urine Appearance Urine pH Ur Specific [place] Urine Protein Urine Glucose (UA) Urine Ketones Urine Blood Urine Nitrate Urine Bilirubin Urine Urobilinogen Ur Leukocyte Esterase Urine RBC Urine WBC Ur Epithelial Cells Uric Acid Crystals Amorphous Sediment Urine Bacteria Coarse Granular Casts Urine Other 06/20/16 06/20/16 06/20/16 05:48 06:46 06:51 WBC RBC Hgb Hct MCV MCH MCHC RDW Plt Count MPV pCO2 pO2 HCO3 ABG pH ABG Total CO2 ABG O2 Saturation ABG O2 Content ABG Base Excess ABG Hemoglobin ABG Carboxyhemoglobin POC ABG HHb (Measured) ABG Methemoglobin ABG O2 Capacity VBG pH VBG pCO2 VBG HCO3 VBG Total CO2 VBG O2 Sat (Calc) VBG Base Excess VBG Potassium Hgb O2 Saturation Glucose Lactate FiO2 Sodium Potassium Chloride Carbon Dioxide Anion Gap BUN Creatinine Est GFR ( Amer) Est GFR (Non-Af Amer) POC Glucose (mg/dL) 298 H 277 H Random Glucose Lactic Acid Calcium Phosphorus Magnesium Total Bilirubin AST ALT Alkaline Phosphatase Total Protein Albumin Globulin Albumin/Globulin Ratio Triglycerides Cholesterol LDL Cholesterol Direct HDL Cholesterol Procalcitonin Free T4 Venous Blood Potassium Urine Color Yellow Urine Appearance Sl cloudy Urine pH 5.5 Ur Specific [place] 1.025 Urine Protein 100 H Urine Glucose (UA) 100 H Urine Ketones 40 H Urine Blood Large H Urine Nitrate Negative Urine Bilirubin Small H Urine Urobilinogen 1.0 H Ur Leukocyte Esterase Negative Urine RBC 2 - 5 Urine WBC 0 - 2 Ur Epithelial Cells 0 - 2 Uric Acid Crystals Few Amorphous Sediment Few Urine Bacteria Mod Coarse Granular Casts Small H Urine Other Uyeast 06/20/16 06/20/16 06/20/16 08:12 09:04 10:08 WBC RBC Hgb Hct MCV MCH MCHC RDW Plt Count MPV pCO2 pO2 HCO3 ABG pH ABG Total CO2 ABG O2 Saturation ABG O2 Content ABG Base Excess ABG Hemoglobin ABG Carboxyhemoglobin POC ABG HHb (Measured) ABG Methemoglobin ABG O2 Capacity VBG pH VBG pCO2 VBG HCO3 VBG Total CO2 VBG O2 Sat (Calc) VBG Base Excess VBG Potassium Hgb O2 Saturation Glucose Lactate FiO2 Sodium Potassium Chloride Carbon Dioxide Anion Gap BUN Creatinine Est GFR ( Amer) Est GFR (Non-Af Amer) POC Glucose (mg/dL) 278 H 287 H Random Glucose Lactic Acid 3.5 H Calcium Phosphorus Magnesium Total Bilirubin AST ALT Alkaline Phosphatase Total Protein Albumin Globulin Albumin/Globulin Ratio Triglycerides Cholesterol LDL Cholesterol Direct HDL Cholesterol Procalcitonin Free T4 Venous Blood Potassium Urine Color Urine Appearance Urine pH Ur Specific [place] Urine Protein Urine Glucose (UA) Urine Ketones Urine Blood Urine Nitrate Urine Bilirubin Urine Urobilinogen Ur Leukocyte Esterase Urine RBC Urine WBC Ur Epithelial Cells Uric Acid Crystals Amorphous Sediment Urine Bacteria Coarse Granular Casts Urine Other 06/20/16 06/20/16 06/20/16 10:10 10:47 11:56 WBC RBC Hgb Hct MCV MCH MCHC RDW Plt Count MPV pCO2 pO2 HCO3 ABG pH ABG Total CO2 ABG O2 Saturation ABG O2 Content ABG Base Excess ABG Hemoglobin ABG Carboxyhemoglobin POC ABG HHb (Measured) ABG Methemoglobin ABG O2 Capacity VBG pH VBG pCO2 VBG HCO3 VBG Total CO2 VBG O2 Sat (Calc) VBG Base Excess VBG Potassium Hgb O2 Saturation Glucose Lactate FiO2 Sodium 145 Potassium 4.1 Chloride 116 H Carbon Dioxide 17 L Anion Gap 16 BUN 16 Creatinine 1.2 Est GFR ( Amer) > 60 Est GFR (Non-Af Amer) > 60 POC Glucose (mg/dL) 473 H* 368 H Random Glucose 366 H* D Lactic Acid Calcium 8.7 Phosphorus 1.7 L Magnesium 2.3 H Total Bilirubin AST ALT Alkaline Phosphatase Total Protein Albumin Globulin Albumin/Globulin Ratio Triglycerides Cholesterol LDL Cholesterol Direct HDL Cholesterol Procalcitonin Free T4 Venous Blood Potassium Urine Color Urine Appearance Urine pH Ur Specific [place] Urine Protein Urine Glucose (UA) Urine Ketones Urine Blood Urine Nitrate Urine Bilirubin Urine Urobilinogen Ur Leukocyte Esterase Urine RBC Urine WBC Ur Epithelial Cells Uric Acid Crystals Amorphous Sediment Urine Bacteria Coarse Granular Casts Urine Other 06/20/16 06/20/16 06/20/16 12:43 13:13 14:15 WBC RBC Hgb Hct MCV MCH MCHC RDW Plt Count MPV pCO2 pO2 HCO3 ABG pH ABG Total CO2 ABG O2 Saturation ABG O2 Content ABG Base Excess ABG Hemoglobin ABG Carboxyhemoglobin POC ABG HHb (Measured) ABG Methemoglobin ABG O2 Capacity VBG pH VBG pCO2 VBG HCO3 VBG Total CO2 VBG O2 Sat (Calc) VBG Base Excess VBG Potassium Hgb O2 Saturation Glucose Lactate FiO2 Sodium 142 Potassium 4.1 Chloride 116 H Carbon Dioxide 15 L Anion Gap 15 BUN 16 Creatinine 1.2 Est GFR ( Amer) > 60 Est GFR (Non-Af Amer) > 60 POC Glucose (mg/dL) 358 H 235 H Random Glucose 306 H* D Lactic Acid Calcium 8.3 L Phosphorus 1.5 L Magnesium 2.3 H Total Bilirubin 0.9 AST 26 ALT 23 Alkaline Phosphatase 46 Total Protein 7.0 Albumin 3.0 Globulin 4.0 Albumin/Globulin Ratio 0.7 L Triglycerides Cholesterol LDL Cholesterol Direct HDL Cholesterol Procalcitonin Free T4 Venous Blood Potassium Urine Color Urine Appearance Urine pH Ur Specific [place] Urine Protein Urine Glucose (UA) Urine Ketones Urine Blood Urine Nitrate Urine Bilirubin Urine Urobilinogen Ur Leukocyte Esterase Urine RBC Urine WBC Ur Epithelial Cells Uric Acid Crystals Amorphous Sediment Urine Bacteria Coarse Granular Casts Urine Other 06/20/16 06/20/16 06/20/16 15:14 15:20 16:14 WBC RBC Hgb Hct MCV MCH MCHC RDW Plt Count MPV pCO2 pO2 HCO3 ABG pH ABG Total CO2 ABG O2 Saturation ABG O2 Content ABG Base Excess ABG Hemoglobin ABG Carboxyhemoglobin POC ABG HHb (Measured) ABG Methemoglobin ABG O2 Capacity VBG pH VBG pCO2 VBG HCO3 VBG Total CO2 VBG O2 Sat (Calc) VBG Base Excess VBG Potassium Hgb O2 Saturation Glucose Lactate FiO2 Sodium 147 Potassium 4.1 Chloride 114 H Carbon Dioxide 20 L Anion Gap 17 BUN 15 Creatinine 1.3 Est GFR ( Amer) > 60 Est GFR (Non-Af Amer) 57 POC Glucose (mg/dL) 197 H 107 Random Glucose 111 H Lactic Acid Calcium 9.0 Phosphorus Magnesium Total Bilirubin 0.9 AST 23 ALT 23 Alkaline Phosphatase 56 Total Protein 7.8 Albumin 3.3 Globulin 4.5 Albumin/Globulin Ratio 0.7 L Triglycerides Cholesterol LDL Cholesterol Direct HDL Cholesterol Procalcitonin Free T4 Venous Blood Potassium Urine Color Urine Appearance Urine pH Ur Specific [place] Urine Protein Urine Glucose (UA) Urine Ketones Urine Blood Urine Nitrate Urine Bilirubin Urine Urobilinogen Ur Leukocyte Esterase Urine RBC Urine WBC Ur Epithelial Cells Uric Acid Crystals Amorphous Sediment Urine Bacteria Coarse Granular Casts Urine Other 06/20/16 17:05 WBC RBC Hgb Hct MCV MCH MCHC RDW Plt Count MPV pCO2 pO2 HCO3 ABG pH ABG Total CO2 ABG O2 Saturation ABG O2 Content ABG Base Excess ABG Hemoglobin ABG Carboxyhemoglobin POC ABG HHb (Measured) ABG Methemoglobin ABG O2 Capacity VBG pH VBG pCO2 VBG HCO3 VBG Total CO2 VBG O2 Sat (Calc) VBG Base Excess VBG Potassium Hgb O2 Saturation Glucose Lactate FiO2 Sodium Potassium Chloride Carbon Dioxide Anion Gap BUN Creatinine Est GFR ( Amer) Est GFR (Non-Af Amer) POC Glucose (mg/dL) 92 Random Glucose Lactic Acid Calcium Phosphorus Magnesium Total Bilirubin AST ALT Alkaline Phosphatase Total Protein Albumin Globulin Albumin/Globulin Ratio Triglycerides Cholesterol LDL Cholesterol Direct HDL Cholesterol Procalcitonin Free T4 Venous Blood Potassium Urine Color Urine Appearance Urine pH Ur Specific [place] Urine Protein Urine Glucose (UA) Urine Ketones Urine Blood Urine Nitrate Urine Bilirubin Urine Urobilinogen Ur Leukocyte Esterase Urine RBC Urine WBC Ur Epithelial Cells Uric Acid Crystals Amorphous Sediment Urine Bacteria Coarse Granular Casts Urine Other Assessment & Plan - Assessment and Plan (Free Text) Assessment: 61 yo male presenting with Uncontrolled DM and DKA. Incidental finding of pneumonic picture with a possibility for TB. The patient is under isolation for TB. Risks for TB appear to be low. The patient for acid-fast testing of the sputum x 3. Cannot rule out ALISON, fungal, or severe bacterial infections such as Staph Aureus or Strep Pneumonia. He is being treated for his DKA. On Vancomycin and Zosyn. gram positive cocci in blood cultures. May need to consider Teflaro instead to get better concentrations in the lung for MRSA. Supportive care. Case discussed with Dr. Olson. Thank you for allowing me to participate in the care of this patient, we will follow with you.
[2016-06-20] MEDS: Dextrose 5%/0.9% NS 1,000 ML IV SCH (19:11)
[2016-06-20 20:10] LABS: HEMATOCRIT 35.9 % (42.0-52.0); MEAN CELL VOLUME 82.3 fL (80.0-105.0); MEAN CORPUSCULAR HEMOGLOBIN 27.3 pg (25.0-35.0); MEAN CORPUSCULAR HGB CONC 33.1 g/dl (31.0-37.0); MEAN PLATELET VOLUME 13.1 fl (7.0-11.0); RED CELL DISTRIBUTION WIDTH 14.3 % (11.5-14.5); WHITE BLOOD COUNT 7.7 10^3/ul (4.5-11.0)
[2016-06-20 20:24] LABS: ALB/GLOB RATIO 0.7 (1.1-1.8); ALKALINE PHOSPHATASE 52 U/L (38-133); ALT/SGPT 31 U/L (7-56); AST/SGOT 24 U/L (15-59); BILIRUBIN,TOTAL 1.1 mg/dL (0.2-1.3); BLOOD UREA NITROGEN 15 mg/dL (7-21); CALCIUM 8.3 mg/dL (8.4-10.5); CARBON DIOXIDE 16 mmol/L (21-33); CHLORIDE 113 mmol/L (98-107); GFR AFRICAN-AMERICAN > 60; GLUCOSE,RANDOM 216 mg/dL (70-110); SODIUM 142 mmol/L (132-148); TOTAL PROTEIN 6.7 g/dL (5.8-8.3)
[2016-06-20 20:32] LABS: PHOSPHOROUS 1.3 mg/dL (2.5-4.5)
[2016-06-20] MEDS ORDERED: Potassium Phosphate 30 MMOLE in Dextrose 5% In Water 250 ML IVPB ONE (20:35)
--- NOTE | 2016-06-20 22:24 | CON ---
DATE: 06/20/2016 LOCATION: [facility], room 7. HISTORY OF PRESENT ILLNESS: This is a 61-year-old male with known history of type 2 diabetes and hyp ertension currently off medications, presenting here with generalized body weakness and hemoptysis an d also supervening marked hyperglycemic accelerations and evaluated to be in diabetic ketoacidosis an d is being referred now for diabetic evaluation and management. He is currently on an insulin drip i nfusion as noted with vigorous IV hydration as given. PAST MEDICAL HISTORY: As mentioned above, history of type 2 diabetes, previously on metformin given as 500 mg b.i.d., but apparently has been off medications for over 2 months or so; history of hyperte nsive cardiovascular disease and dyslipidemia. FAMILY HISTORY: Positive for diabetes and hypertension. SOCIAL HISTORY: The patient has a supportive family. No known substance use. REVIEW OF SYSTEMS: As mentioned above, admits to episodic dizziness and lightheadedness with bifront al headaches. Also, admits to generalized body weakness with easy fatigability and suboptimal energy level. No chest pains, but admits to pleuritic pain in the right side of his chest with supervening bronchorrhea and greenish colored sputum with episodic bouts of hemoptysis. His oral intake has bee n variable and suboptimal with dyspepsia, nausea and vague upper abdominal pains. Also, admits to ma rked polyuria, nocturia and polydipsia, and over 10 pound weight loss. PHYSICAL EXAMINATION: GENERAL: This is an asthenic male in no apparent distress. VITAL SIGNS: Blood pressure of 160/100, pulse of 100 beats per minute and regular, temperature 102, respirations 20. Height is 6 feet 2 inches, weight is 170 pounds. HEENT: Head normocephalic. Eyes anicteric with pink conjunctivae. Fundoscopy not possible at this time. Ears, nose and throat otherwise normal. NECK: Supple. Thyroid gland is normal size. No carotid bruits. No cervical adenopathy. CARDIOPULMONARY: Has an adynamic precordium. S1, S2 is rapid and regular. LUNGS: Show scattered rhonchi. ABDOMEN: Flat, soft with positive bowel sounds. EXTREMITIES: No peripheral edema. Pulses are +2 bilaterally. LABORATORY DATA: His chemistry showed a BUN of 16, sodium 142, potassium 4.1, chloride 116, CO2 is 1 5 and the repeat CO2 is 20 this afternoon. Glucose 306 and creatinine 1.2. ASSESSMENT: This is a 61-year-old male with uncontrolled and decompensated type 2 insulin-requiring diabetes, presenting here with diabetic ketoacidosis and dehydration with concomitant right upper lob e pneumonia with hemoptysis and the possibility of pulmonary tuberculosis. He is being worked up at this time as noted. He also has bacteremia with initial blood culture reports. This would also caus e increased insulin resistance and further impaired glucose tolerance. PLAN OF MANAGEMENT: Will continue the insulin drip infusion as ordered with vigorous IV hydration as given. Once his acidosis is resolved, then may switch him over to a more physiologic basal and bolu s insulin drug combination with Levemir given at bedtime and Humalog to cover the prandial or mealtim e insulin requirements. Will obtain serial chemistries and supplement accordingly as needed. A hemo globin A1c has been sent out and will obtain a baseline lipid panel and TSH value as ordered. Will i nitiate diabetic education and dietary instructions once the patient has improved clinically and meta bolically as noted. Will follow. Sherri Hurst MD cc: [id number] TT: 06/20/2016 22:23:58 Confirmation # [id number] Dictation # [id number] chio
[2016-06-21] MEDS: Piperacillin/Tazobact 3.375 gm 100 ML IVPB SCH ×5 (00:22→17:07)
[2016-06-21] MEDS: Vancomycin 1gm in NS 250ml 1 GM/250 ML BAG IVPB SCH ×2 (00:26→11:46)
[2016-06-21 00:49] LABS: ALB/GLOB RATIO 0.7 (1.1-1.8); ALKALINE PHOSPHATASE 51 U/L (38-133); ALT/SGPT 33 U/L (7-56); AST/SGOT 28 U/L (15-59); BILIRUBIN,TOTAL 0.9 mg/dL (0.2-1.3); BLOOD UREA NITROGEN 15 mg/dL (7-21); CALCIUM 7.9 mg/dL (8.4-10.5); CARBON DIOXIDE 18 mmol/L (21-33); CHLORIDE 115 mmol/L (98-107); GFR AFRICAN-AMERICAN > 60; GLUCOSE,RANDOM 233 mg/dL (70-110); POTASSIUM 4.1 mmol/L (3.6-5.0); SODIUM 140 mmol/L (132-148); TOTAL PROTEIN 6.7 g/dL (5.8-8.3)
[2016-06-21] MEDS: Dextrose 5%/0.9% NS 1,000 ML IV SCH ×3 (02:59→17:03)
[2016-06-21 04:33] LABS: ADD MANUAL DIFF? NO
[2016-06-21 04:41] LABS: BASO # 0.01 K/mm3 (0.0-2.0); BASO % 0.1 % (0.0-3.0); GRAN # 6.72 (1.4-6.5); GRAN % 76.2 % (50.0-68.0); HEMATOCRIT 35.3 % (42.0-52.0); LYMPH # 1.3 (1.2-3.4); MEAN CELL VOLUME 82.5 fL (80.0-105.0); MEAN CORPUSCULAR HEMOGLOBIN 27.8 pg (25.0-35.0); MEAN CORPUSCULAR HGB CONC 33.7 g/dl (31.0-37.0); MEAN PLATELET VOLUME 13.2 fl (7.0-11.0); MONO # 0.8 (0.1-0.6); MONO % 8.7 % (1.0-6.0); PLATELET COUNT 132 10^3/uL (120.0-450.0); RED CELL DISTRIBUTION WIDTH 14.4 % (11.5-14.5); WHITE BLOOD COUNT 8.8 10^3/ul (4.5-11.0)
[2016-06-21 05:01] LABS: ALB/GLOB RATIO 0.7 (1.1-1.8); ALKALINE PHOSPHATASE 54 U/L (38-133); ALT/SGPT 30 U/L (7-56); AST/SGOT 24 U/L (15-59); BILIRUBIN,TOTAL 1.1 mg/dL (0.2-1.3); BLOOD UREA NITROGEN 14 mg/dL (7-21); CALCIUM 7.9 mg/dL (8.4-10.5); CARBON DIOXIDE 18 mmol/L (21-33); CHLORIDE 113 mmol/L (98-107); CHOLESTEROL 123 mg/dL (130-200); GFR AFRICAN-AMERICAN > 60; GLUCOSE,RANDOM 213 mg/dL (70-110); PHOSPHOROUS 2.5 mg/dL (2.5-4.5); POTASSIUM 4.4 mmol/L (3.6-5.0); SODIUM 140 mmol/L (132-148); TOTAL PROTEIN 6.8 g/dL (5.8-8.3)
[2016-06-21 06:00] LABS: ARTERIAL BLOOD GAS HCO3 10.7 mmol/L (21-28); ARTERIAL BLOOD GAS O2 CAPACITY 11.1 mL/dl (16-24); ARTERIAL BLOOD GAS O2 CONTENT 10.8 ML/dl (15-23); ARTERIAL BLOOD GAS PH 7.36 (7.35-7.45); ARTERIAL BLOOD HGB O2 SAT 96.2 % (95.0-98.0); CARBOXYHEMOGLOBIN 1.1 % (0.5-1.5); HHB 2.3 % (0-5); METHEMOGLOBIN 0.4 % (0.0-3.0)
[2016-06-21] MEDS: Insulin Regular 100 UNITS in Sodium Chloride 0.9% 99 ML IV PRN ×2 (08:34→10:10)
[2016-06-21 08:38] LABS: ALB/GLOB RATIO 0.7 (1.1-1.8); ALKALINE PHOSPHATASE 55 U/L (38-133); ALT/SGPT 29 U/L (7-56); AST/SGOT 25 U/L (15-59); BILIRUBIN,TOTAL 0.9 mg/dL (0.2-1.3); BLOOD UREA NITROGEN 13 mg/dL (7-21); CALCIUM 7.9 mg/dL (8.4-10.5); CARBON DIOXIDE 20 mmol/L (21-33); CHLORIDE 112 mmol/L (98-107); GFR AFRICAN-AMERICAN > 60; GLUCOSE,RANDOM 196 mg/dL (70-110); POTASSIUM 4.2 mmol/L (3.6-5.0); SODIUM 142 mmol/L (132-148); TOTAL PROTEIN 6.5 g/dL (5.8-8.3)
--- NOTE | 2016-06-21 09:09 | RAD ---
HISTORY: pneumonia COMPARISON: 06/19/2016 FINDINGS: LUNGS: Multifocal hazy opacities throughout both lungs right greater than left. PLEURA: No significant pleural effusion identified, no pneumothorax apparent. CARDIOVASCULAR: Normal. OSSEOUS STRUCTURES: The osseous structures demonstrate degenerative changes. VISUALIZED UPPER ABDOMEN: Upper abdomen is suboptimally evaluated. OTHER FINDINGS: None. IMPRESSION: Re- demonstration of multifocal hazy opacities throughout both lungs right greater than left.
--- NOTE | 2016-06-21 09:24 | CARD ---
APPROVED REPORT EXAM: Two-dimensional and M-mode echocardiogram with Doppler and color Doppler. 2D DIMENSIONS IVSd1.1 (0.7-1.1cm)LVDd4.6 (3.9-5.9cm) PWd1.1 (0.7-1.1cm)LVDs3.2 (2.5-4.0cm) FS (%) 30.2 %LVEF (%)57.0 (>50%) M-Mode DIMENSIONS Left Atrium (MM)4.30 (2.5-4.0cm)Aortic Root3.50 (2.2-3.7cm) Aortic Cusp Exc.2.70 (1.5-2.0cm) Aortic Valve AoV Peak Nrwywjww635.0cm/sAoV VTI24.4cmLVOT Peak Kcprdzqj30.2cm/s LVOT VTI19.50cm Mitral Valve MV E Ernmvumz87.5cm/sMV A Vubmouky27.1cm/sE/A ratio1.0 TDI Lateral E' Peak V10.80cm/sMedial E' Peak V6.00cm/sE/Lateral E'5.1 E/Medial E'9.3 Tricuspid Valve TR Peak Poinvlaw584gg/sRAP CUTWREOE99bbIdRV Peak Gr.13mmHg [id number] LEFT VENTRICLE The left ventricle is normal size. There is mild concentric left ventricular hypertrophy. The left ventricular function is normal. The left ventricular ejection fraction is within the normal range. There is normal LV segmental wall motion. RIGHT VENTRICLE The right ventricle is normal size. ATRIA The left atrium size is normal. The right atrium size is normal. The interatrial septum is intact with no evidence for an atrial septal defect. AORTIC VALVE The aortic valve is normal in structure. MITRAL VALVE The mitral valve is normal in structure. Mitral regurgitation is trace. TRICUSPID VALVE The tricuspid valve is normal in structure. There is trace tricuspid regurgitation. PULMONIC VALVE The pulmonic valve is not well visualized. GREAT VESSELS The aortic root is normal in size. PERICARDIAL EFFUSION There is no pericardial effusion. <Conclusion> The left ventricle is normal size. There is mild concentric left ventricular hypertrophy. The left ventricular function is normal.
--- NOTE | 2016-06-21 10:16 | CP.PCM.PN ---
<OnealCiscoAaron - Last Filed: 06/21/16 12:22> Subjective - Date & Time of Evaluation Date of Evaluation: 06/20/16 Time of Evaluation: 07:25 - Subjective Subjective: 61 year old man with history of HTN and NIDDM who presents with 2 days of generalized weakness, polydysia, polyuria, hemoptysis, cough with green-colored sputum, intermittent confusion and some mild SOB. Today, he still complains of generalized weakness and mild shortness of breath but otherwise had no other complaints and denies chest pain, nausea, vomiting, or diarrhea. Objective - Vital Signs/Intake and Output Vital Signs (last 24 hours): Temp Pulse Resp BP Pulse Ox 99.6 F 81 28 H 136/61 100 06/21/16 04:00 06/21/16 10:00 06/21/16 07:30 06/21/16 10:01 06/21/16 07:30 Intake and Output: 06/21/16 06/21/16 06:59 18:59 Intake Total 2318.9 1371.1 Output Total 900 Balance 1418.9 1371.1 - Medications Medications: Current Medications Acetaminophen (Tylenol 325mg Tab) 650 mg PO Q6H PRN PRN Reason: Fever >100.4 F Last Admin: 06/20/16 19:57 Dose: 650 mg Amlodipine Besylate (Norvasc) 10 mg PO DAILY [facility] Last Admin: 06/21/16 10:01 Dose: 10 mg Clonidine HCl (Catapres) 0.1 mg PO TID PRN PRN Reason: Systolic Blood Pressure Last Admin: 06/21/16 10:00 Dose: 0.1 mg Vancomycin HCl (Vancomycin 1gm) 1 gm in 250 mls @ 167 mls/hr IVPB Q12H LYN PRN Reason: Protocol Last Admin: 06/21/16 00:26 Dose: 167 mls/hr Insulin Human Regular 100 (units/ Sodium Chloride) 100 mls @ 5 mls/hr IV .Q20H PRN; Protocol; 5 UNITS/HR PRN Reason: TITRATE PER MD ORDER Last Admin: 06/21/16 10:10 Dose: 2 units/hr, 2 mls/hr Piperacillin Sod/Tazobactam Sod (Zosyn 3.375 In Ns 100ml) 100 mls @ 200 mls/hr IVPB Q6 LYN PRN Reason: Protocol Last Admin: 06/21/16 06:33 Dose: 200 mls/hr Dextrose/Sodium Chloride (Dextrose 5%/0.9% Ns 1000 Ml) 1,000 mls @ 150 mls/hr IV .Q6H40M [facility] Last Admin: 06/21/16 09:57 Dose: 150 mls/hr Lisinopril (Zestril) 30 mg PO DAILY [facility] Last Admin: 06/21/16 09:59 Dose: 30 mg Metoclopramide HCl (Reglan) 10 mg IVP Q6H PRN PRN Reason: Nausea/Vomiting Pantoprazole Sodium (Protonix Inj) 40 mg IVP DAILY [facility] Last Admin: 06/21/16 09:59 Dose: 40 mg - Labs Labs: 06/21/16 04:20 06/21/16 08:15 PT 10.7 Seconds (9.9-11.8) 06/19/16 18:15 INR 0.99 (0.93-1.08) 06/19/16 18:15 APTT 30.8 Seconds (23.7-30.8) 06/19/16 18:15 - Constitutional Appears: No Acute Distress - Head Exam Head Exam: ATRAUMATIC, NORMOCEPHALIC - Eye Exam Eye Exam: EOMI - ENT Exam ENT Exam: Mucous Membranes Moist - Neck Exam Neck Exam: absent: Lymphadenopathy - Respiratory Exam Respiratory Exam: Rhonchi (BL), NORMAL BREATHING PATTERN - Cardiovascular Exam Cardiovascular Exam: REGULAR RHYTHM, RRR, +S1, +S2. absent: JVD - GI/Abdominal Exam GI & Abdominal Exam: Soft, Tenderness (mild), Normal Bowel Sounds - Extremities Exam Extremities Exam: absent: Joint Swelling, Pedal Edema - Back Exam Back Exam: absent: rash noted - Neurological Exam Neurological Exam: Alert, Awake, Oriented x3 - Psychiatric Exam Psychiatric exam: Flat Affect, Normal Mood - Skin Skin Exam: Dry, Intact, Normal Color, Warm Assessment and Plan - Assessment and Plan (Free Text) Assessment: The patient is a 61 year old man with history of HTN and NIDDM who is being admitted to the ICU for DKA, hemoptysis and sepsis due to a right- sided PNA. Plan: 1. Diabetic Ketoacidosis (without coma): --will follow ICU recs -due to medication non-compliance -Insulin drip per Algorithm 1 protocol -NPO except meds while on Insulin drip -aggressive IVF's initially with NS@200cc/hr -no need for supplemental potassium at this time since initial K=5.5 -once fingerstick <fo=314, change IVF's to D51/2NS@150cc/hr -check serial BMP's, VBG's, Mag and Phos Q4hrs x 6 -HgA1c ordered -symptoms of generalized weakness likely due to DKA 2. Sepsis (due to pneumonia): -empiric IV antibiotics -aggressive IVF's -check procalcitonin 20.42 -repeat lactic acid -check HIV non-reactive -ID consult Dr. Hankins - will follow ID recs -pneumonic picture with a possibility for TB. Risks for TB appear to be low. The patient for acid-fast testing of the sputum x 3 -On Vancomycin and Zosyn. gram positive cocci in blood cultures. 2. Right-sided Pneumonia: -will treat empirically with IV Vanco and Zosyn -blood cultures - gram positive cocci -urine cultures - pending -procalcitonin 20 high -lactic acid 3.5 high -TB will be ruled out with three sputum AFB samples -airborne precautions while TB is being ruled out -monitor serial ABG's 3. Acute Hemoptysis: -ddx: TB vs malignancy -will rule out TB with three sets of sputum AFB samples -airborne precautions while TB is being ruled out -avoid anticoagulation -given infiltrates on CXR, absence of respiratory distress and a normal O2 sat, suspicion for acute PE is low -however, if pt's symptoms deteriorate despite IV antibiotics, will then consider a CT-PA 4. Acute Kidney Injury: -likely pre-renal etiology due to intravascular depletion -serum Cr expected to correct after aggressive IVF's -Cr dropped to 1.2 -renally dose all meds until serum Cr corrects 5. Poorly Controlled Hypertension: -due to medication non-compliance -Lisinopril 30mg po daily plus Norvasc 10mg po daily -Clonidine 0.1mg po TID PRN SBP>165 DVT PPx: SCD's GI PPx: Protonix <Olson,Irfana B - Last Filed: 06/21/16 18:43> Objective - Vital Signs/Intake and Output Vital Signs (last 24 hours): Temp Pulse Resp BP Pulse Ox 99.4 F 85 36 H 119/44 L 98 06/21/16 12:00 06/21/16 18:10 06/21/16 18:10 06/21/16 18:00 06/21/16 18:10 Intake and Output: 06/21/16 06/21/16 06:59 18:59 Intake Total 2318.9 4671.1 Output Total 900 1000 Balance 1418.9 3671.1 - Medications Medications: Current Medications Acetaminophen (Tylenol 325mg Tab) 650 mg PO Q6H PRN PRN Reason: Fever >100.4 F Last Admin: 06/21/16 17:27 Dose: 650 mg Amlodipine Besylate (Norvasc) 10 mg PO DAILY [facility] Last Admin: 06/21/16 10:01 Dose: 10 mg Clonidine HCl (Catapres) 0.1 mg PO TID PRN PRN Reason: Systolic Blood Pressure Last Admin: 06/21/16 10:00 Dose: 0.1 mg Vancomycin HCl (Vancomycin 1gm) 1 gm in 250 mls @ 167 mls/hr IVPB Q12H LYN PRN Reason: Protocol Last Admin: 06/21/16 11:46 Dose: 167 mls/hr Piperacillin Sod/Tazobactam Sod (Zosyn 3.375 In Ns 100ml) 100 mls @ 200 mls/hr IVPB Q6 LYN PRN Reason: Protocol Last Admin: 06/21/16 17:07 Dose: 200 mls/hr Dextrose/Sodium Chloride (Dextrose 5%/0.9% Ns 1000 Ml) 1,000 mls @ 150 mls/hr IV .Q6H40M [facility] Last Admin: 06/21/16 17:03 Dose: 150 mls/hr Insulin Human Regular (Humulin R Low) 0 units SC ACHS LYN PRN Reason: Protocol Last Admin: 06/21/16 17:06 Dose: 3 units Lisinopril (Zestril) 30 mg PO DAILY [facility] Last Admin: 06/21/16 09:59 Dose: 30 mg Metoclopramide HCl (Reglan) 10 mg IVP Q6H PRN PRN Reason: Nausea/Vomiting Pantoprazole Sodium (Protonix Inj) 40 mg IVP DAILY [facility] Last Admin: 06/21/16 09:59 Dose: 40 mg - Labs Labs: 06/21/16 04:20 06/21/16 16:15 PT 10.7 Seconds (9.9-11.8) 06/19/16 18:15 INR 0.99 (0.93-1.08) 06/19/16 18:15 APTT 30.8 Seconds (23.7-30.8) 06/19/16 18:15 Attending/Attestation - Attestation I have personally seen and examined this patient.: Yes I have fully participated in the care of the patient.: Yes I have reviewed all pertinent clinical information, including history, physical exam and plan: Yes Notes (Text): I have seen and examined patient at bedside. This is 61 year old man with history of HTN and NIDDM who presented with generalized weakness, polydysia, polyuria, hemoptysis, cough with green colored sputum, intermittent confusion and found to have DKA, hemoptysis and sepsis due to a right-sided PNA. He is currently on insulin drip and is being managed in ICU. Also on empiric antibiotics vancomycin and zosyn. CT scan reviewed. Discussed with Dr Hankins and nitroglycerin nitrator operator batch Dr Olson. There is a suspicion for TB and patient is on isolation. Dr Ashley Olson
[2016-06-21] MEDS ORDERED: Insulin Detemir 100 units/ml Vial (Levemir) SC STA (10:21)
--- NOTE | 2016-06-21 10:29 | CP.CCUPN ---
CCU Subjective - Physician Review Events Since Last Encounter (Free Text): 06/21/16 10:24 Overnight continues to cough brown thick sputum. Febrile x 1. No hypoxia. DKA resolving on insulin drip. CCU Objective - Vital Signs / Intake & Output Vital Signs (Last 4 hours): Vital Signs Pulse Resp BP Pulse Ox 06/21/16 10:01 136/61 06/21/16 10:00 81 136/61 06/21/16 09:59 81 136/61 06/21/16 07:30 76 28 H 126/57 L 100 06/21/16 07:20 74 26 H 96 06/21/16 07:10 83 31 H 98 06/21/16 07:00 84 115/58 L 96 06/21/16 06:50 91 H 53 H 92 L 06/21/16 06:40 87 98 06/21/16 06:30 85 29 H 133/47 L 98 Intake and Output (Last 8hrs): Intake & Output 06/20/16 06/21/16 06/21/16 22:59 06:59 14:59 Intake Total 6086.4 2257 1371.1 Output Total 2281 900 Balance 3805.4 1357 1371.1 Weight 187 lb 3.2 oz Intake: IV 2586.4 2257 121.1 Left Antecubital 2400 2200 Right Hand 120 38 Oral 3500 1250 Output: Urine 2280 900 Condom 2280 900 Stool 1 Other: Voiding Method Diaper Incontinent # Bowel Movements 1 0 - Physical Exam Head: Positive for: Atraumatic, Normocephalic Pupils: Positive for: PERRL Extroacular Muscles: Positive for: EOMI Conjunctiva: Positive for: Normal Mouth: Positive for: Moist Mucous Membranes Nose (External): Positive for: Atraumatic Neck: Positive for: Normal Range of Motion Respiratory/Chest: Positive for: Clear to Auscultation, Good Air Exchange, Decreased Breath Sounds, Rhonchi Cardiovascular: Positive for: Regular Rate and Rhythm, Normal S1, S2 Abdomen: Positive for: Normal Bowel Sounds Back: Positive for: Normal Inspection Upper Extremity: Positive for: Normal Inspection Lower Extremity: Positive for: Normal Inspection Neurological: Positive for: GCS=15, CN II-XII Intact, Speech Normal Skin: Positive for: Warm Psychiatric: Positive for: Alert, Oriented x 3 - Medications Active Medications: Active Medications Generic Name Dose Route Start Last Admin Trade Name Freq PRN Reason Stop Dose Admin Acetaminophen 650 mg 06/19/16 19:56 06/20/16 19:57 Tylenol 325mg Tab PO 650 mg Q6H PRN Administration Fever >100.4 F Amlodipine Besylate 10 mg 06/20/16 10:00 06/21/16 10:01 Norvasc PO 10 mg DAILY LYN Administration Clonidine HCl 0.1 mg 06/20/16 02:14 06/21/16 10:00 Catapres PO 0.1 mg TID PRN Administration Systolic Blood Pressure Vancomycin HCl 1 gm in 250 mls @ 167 mls/hr 06/20/16 00:45 06/21/16 00:26 Vancomycin 1gm IVPB 167 mls/hr Q12H LYN Administration Protocol Piperacillin Sod/Tazobactam Sod 100 mls @ 200 mls/hr 06/20/16 18:00 06/21/16 06:33 Zosyn 3.375 In Ns 100ml IVPB 200 mls/hr Q6 LYN Administration Protocol Dextrose/Sodium Chloride 1,000 mls @ 150 mls/hr 06/20/16 19:00 06/21/16 09:57 Dextrose 5%/0.9% Ns 1000 Ml IV 150 mls/hr .[id number] LYN Administration Insulin Human Regular 0 units 06/21/16 11:30 Humulin R Low SC ACHS [facility] Protocol Lisinopril 30 mg 06/20/16 10:00 06/21/16 09:59 Zestril PO 30 mg DAILY LYN Administration Metoclopramide HCl 10 mg 06/19/16 19:56 Reglan IVP Q6H PRN Nausea/Vomiting Pantoprazole Sodium 40 mg 06/20/16 10:00 06/21/16 09:59 Protonix Inj IVP 40 mg DAILY LYN Administration - Patient Studies Lab Studies: Microbiology Studies 06/19/16 22:00 MRSA Culture (Admit) - Final Naris MRSA NOT DETECTED Lab Studies 06/21/16 06/21/16 06/21/16 Range/Units 10:00 08:58 08:15 WBC (4.5-11.0) 10^3/ul RBC (3.5-6.1) 10^6/uL Hgb (14.0-18.0) gm/dL Hct (42.0-52.0) % MCV (80.0-105.0) fL MCH (25.0-35.0) pg MCHC (31.0-37.0) g/dl RDW (11.5-14.5) % Plt Count (120.0-450.0) 10^3/uL MPV (7.0-11.0) fl Gran % (50.0-68.0) % Lymph % (Auto) (22.0-35.0) % Routt % (Auto) (1.0-6.0) % Eos % (Auto) (1.5-5.0) % Baso % (Auto) (0.0-3.0) % Gran # (1.4-6.5) Lymph # (1.2-3.4) Routt # (0.1-0.6) Eos # (0.0-0.7) Baso # (0.0-2.0) K/mm3 pCO2 (35-45) mm/Hg pO2 (80-100) mm/Hg HCO3 (21-28) mmol/L ABG pH (7.35-7.45) ABG Total CO2 (22-28) mmol.L ABG O2 Saturation (95-98) % ABG O2 Content (15-23) ML/dl ABG Base Excess (-2.0-3.0) mmol/L ABG Hemoglobin (11.7-17.4) g/dL ABG Carboxyhemoglobin (0.5-1.5) % POC ABG HHb (Measured) (0-5) % ABG Methemoglobin (0.0-3.0) % ABG O2 Capacity (16-24) mL/dl Hgb O2 Saturation (95.0-98.0) % FiO2 % Sodium 142 (132-148) mmol/L Potassium 4.2 (3.6-5.0) mmol/L Chloride 112 H (98-107) mmol/L Carbon Dioxide 20 L (21-33) mmol/L Anion Gap 14 (10-20) BUN 13 (7-21) mg/dL Creatinine 1.1 (0.5-1.4) mg/dL Est GFR ( Amer) > 60 Est GFR (Non-Af Amer) > 60 POC Glucose (mg/dL) 190 H 215 H (65-110) mg/dL Random Glucose 196 H (70-110) mg/dL Lactic Acid (0.7-2.1) mmol/L Calcium 7.9 L (8.4-10.5) mg/dL Phosphorus (2.5-4.5) mg/dL Magnesium (1.7-2.2) mg/dL Total Bilirubin 0.9 (0.2-1.3) mg/dL AST 25 (15-59) U/L ALT 29 (7-56) U/L Alkaline Phosphatase 55 (38-133) U/L Total Protein 6.5 (5.8-8.3) g/dL Albumin 2.7 L (3.0-4.8) g/dL Globulin 3.8 gm/dL Albumin/Globulin Ratio 0.7 L (1.1-1.8) Triglycerides (35-160) mg/dL Cholesterol (130-200) mg/dL LDL Cholesterol Direct (0-129) mg/dL HDL Cholesterol (29-60) mg/dL Procalcitonin (0.19-0.49) NG/ML TSH 3rd Generation (0.46-4.68) mIU/mL Vancomycin Trough (5.0-10.0) ug/mL HIV 1&2 Ag/Ab, 4th Gen (Nonreactive) 06/21/16 06/21/16 06/21/16 Range/Units 07:52 06:59 06:06 WBC (4.5-11.0) 10^3/ul RBC (3.5-6.1) 10^6/uL Hgb (14.0-18.0) gm/dL Hct (42.0-52.0) % MCV (80.0-105.0) fL MCH (25.0-35.0) pg MCHC (31.0-37.0) g/dl RDW (11.5-14.5) % Plt Count (120.0-450.0) 10^3/uL MPV (7.0-11.0) fl Gran % (50.0-68.0) % Lymph % (Auto) (22.0-35.0) % Routt % (Auto) (1.0-6.0) % Eos % (Auto) (1.5-5.0) % Baso % (Auto) (0.0-3.0) % Gran # (1.4-6.5) Lymph # (1.2-3.4) Routt # (0.1-0.6) Eos # (0.0-0.7) Baso # (0.0-2.0) K/mm3 pCO2 (35-45) mm/Hg pO2 (80-100) mm/Hg HCO3 (21-28) mmol/L ABG pH (7.35-7.45) ABG Total CO2 (22-28) mmol.L ABG O2 Saturation (95-98) % ABG O2 Content (15-23) ML/dl ABG Base Excess (-2.0-3.0) mmol/L ABG Hemoglobin (11.7-17.4) g/dL ABG Carboxyhemoglobin (0.5-1.5) % POC ABG HHb (Measured) (0-5) % ABG Methemoglobin (0.0-3.0) % ABG O2 Capacity (16-24) mL/dl Hgb O2 Saturation (95.0-98.0) % FiO2 % Sodium (132-148) mmol/L Potassium (3.6-5.0) mmol/L Chloride (98-107) mmol/L Carbon Dioxide (21-33) mmol/L Anion Gap (10-20) BUN (7-21) mg/dL Creatinine (0.5-1.4) mg/dL Est GFR ( Amer) Est GFR (Non-Af Amer) POC Glucose (mg/dL) 279 H 181 H 251 H (65-110) mg/dL Random Glucose (70-110) mg/dL Lactic Acid (0.7-2.1) mmol/L Calcium (8.4-10.5) mg/dL Phosphorus (2.5-4.5) mg/dL Magnesium (1.7-2.2) mg/dL Total Bilirubin (0.2-1.3) mg/dL AST (15-59) U/L ALT (7-56) U/L Alkaline Phosphatase (38-133) U/L Total Protein (5.8-8.3) g/dL Albumin (3.0-4.8) g/dL Globulin gm/dL Albumin/Globulin Ratio (1.1-1.8) Triglycerides (35-160) mg/dL Cholesterol (130-200) mg/dL LDL Cholesterol Direct (0-129) mg/dL HDL Cholesterol (29-60) mg/dL Procalcitonin (0.19-0.49) NG/ML TSH 3rd Generation (0.46-4.68) mIU/mL Vancomycin Trough (5.0-10.0) ug/mL HIV 1&2 Ag/Ab, 4th Gen (Nonreactive) 06/21/16 06/21/16 06/21/16 Range/Units 05:50 04:20 04:20 WBC (4.5-11.0) 10^3/ul RBC (3.5-6.1) 10^6/uL Hgb (14.0-18.0) gm/dL Hct (42.0-52.0) % MCV (80.0-105.0) fL MCH (25.0-35.0) pg MCHC (31.0-37.0) g/dl RDW (11.5-14.5) % Plt Count (120.0-450.0) 10^3/uL MPV (7.0-11.0) fl Gran % (50.0-68.0) % Lymph % (Auto) (22.0-35.0) % Routt % (Auto) (1.0-6.0) % Eos % (Auto) (1.5-5.0) % Baso % (Auto) (0.0-3.0) % Gran # (1.4-6.5) Lymph # (1.2-3.4) Routt # (0.1-0.6) Eos # (0.0-0.7) Baso # (0.0-2.0) K/mm3 pCO2 19 L* (35-45) mm/Hg pO2 71.0 L (80-100) mm/Hg HCO3 10.7 L (21-28) mmol/L ABG pH 7.36 (7.35-7.45) ABG Total CO2 11.3 L (22-28) mmol.L ABG O2 Saturation 97.7 (95-98) % ABG O2 Content 10.8 L (15-23) ML/dl ABG Base Excess -13.2 L (-2.0-3.0) mmol/L ABG Hemoglobin 7.9 L (11.7-17.4) g/dL ABG Carboxyhemoglobin 1.1 (0.5-1.5) % POC ABG HHb (Measured) 2.3 (0-5) % ABG Methemoglobin 0.4 (0.0-3.0) % ABG O2 Capacity 11.1 L (16-24) mL/dl Hgb O2 Saturation 96.2 (95.0-98.0) % FiO2 28.0 % Sodium (132-148) mmol/L Potassium (3.6-5.0) mmol/L Chloride (98-107) mmol/L Carbon Dioxide (21-33) mmol/L Anion Gap (10-20) BUN (7-21) mg/dL Creatinine (0.5-1.4) mg/dL Est GFR ( Amer) Est GFR (Non-Af Amer) POC Glucose (mg/dL) (65-110) mg/dL Random Glucose (70-110) mg/dL Lactic Acid 2.5 H (0.7-2.1) mmol/L Calcium (8.4-10.5) mg/dL Phosphorus (2.5-4.5) mg/dL Magnesium (1.7-2.2) mg/dL Total Bilirubin (0.2-1.3) mg/dL AST (15-59) U/L ALT (7-56) U/L Alkaline Phosphatase (38-133) U/L Total Protein (5.8-8.3) g/dL Albumin (3.0-4.8) g/dL Globulin gm/dL Albumin/Globulin Ratio (1.1-1.8) Triglycerides (35-160) mg/dL Cholesterol (130-200) mg/dL LDL Cholesterol Direct (0-129) mg/dL HDL Cholesterol (29-60) mg/dL Procalcitonin (0.19-0.49) NG/ML TSH 3rd Generation 0.02 L (0.46-4.68) mIU/mL Vancomycin Trough (5.0-10.0) ug/mL HIV 1&2 Ag/Ab, 4th Gen (Nonreactive) 06/21/16 06/21/16 06/21/16 Range/Units 04:20 04:20 04:20 WBC 8.8 (4.5-11.0) 10^3/ul RBC 4.28 (3.5-6.1) 10^6/uL Hgb 11.9 L (14.0-18.0) gm/dL Hct 35.3 L (42.0-52.0) % MCV 82.5 (80.0-105.0) fL MCH 27.8 (25.0-35.0) pg MCHC 33.7 (31.0-37.0) g/dl RDW 14.4 (11.5-14.5) % Plt Count 132 (120.0-450.0) 10^3/uL MPV 13.2 H (7.0-11.0) fl Gran % 76.2 H (50.0-68.0) % Lymph % (Auto) 15.0 L (22.0-35.0) % Routt % (Auto) 8.7 H (1.0-6.0) % Eos % (Auto) 0.0 L (1.5-5.0) % Baso % (Auto) 0.1 (0.0-3.0) % Gran # 6.72 H (1.4-6.5) Lymph # 1.3 (1.2-3.4) Routt # 0.8 H (0.1-0.6) Eos # 0.0 (0.0-0.7) Baso # 0.01 (0.0-2.0) K/mm3 pCO2 (35-45) mm/Hg pO2 (80-100) mm/Hg HCO3 (21-28) mmol/L ABG pH (7.35-7.45) ABG Total CO2 (22-28) mmol.L ABG O2 Saturation (95-98) % ABG O2 Content (15-23) ML/dl ABG Base Excess (-2.0-3.0) mmol/L ABG Hemoglobin (11.7-17.4) g/dL ABG Carboxyhemoglobin (0.5-1.5) % POC ABG HHb (Measured) (0-5) % ABG Methemoglobin (0.0-3.0) % ABG O2 Capacity (16-24) mL/dl Hgb O2 Saturation (95.0-98.0) % FiO2 % Sodium 140 (132-148) mmol/L Potassium 4.4 (3.6-5.0) mmol/L Chloride 113 H (98-107) mmol/L Carbon Dioxide 18 L (21-33) mmol/L Anion Gap 13 (10-20) BUN 14 (7-21) mg/dL Creatinine 1.2 (0.5-1.4) mg/dL Est GFR ( Amer) > 60 Est GFR (Non-Af Amer) > 60 POC Glucose (mg/dL) (65-110) mg/dL Random Glucose 213 H (70-110) mg/dL Lactic Acid (0.7-2.1) mmol/L Calcium 7.9 L (8.4-10.5) mg/dL Phosphorus 2.5 (2.5-4.5) mg/dL Magnesium (1.7-2.2) mg/dL Total Bilirubin 1.1 (0.2-1.3) mg/dL AST 24 (15-59) U/L ALT 30 (7-56) U/L Alkaline Phosphatase 54 (38-133) U/L Total Protein 6.8 (5.8-8.3) g/dL Albumin 2.8 L (3.0-4.8) g/dL Globulin 4.0 gm/dL Albumin/Globulin Ratio 0.7 L (1.1-1.8) Triglycerides 92 (35-160) mg/dL Cholesterol 123 L (130-200) mg/dL LDL Cholesterol Direct 54 (0-129) mg/dL HDL Cholesterol 25 L (29-60) mg/dL Procalcitonin (0.19-0.49) NG/ML TSH 3rd Generation (0.46-4.68) mIU/mL Vancomycin Trough 13.4 H (5.0-10.0) ug/mL HIV 1&2 Ag/Ab, 4th Gen (Nonreactive) 06/21/16 06/21/16 06/21/16 Range/Units 03:58 03:03 02:01 WBC (4.5-11.0) 10^3/ul RBC (3.5-6.1) 10^6/uL Hgb (14.0-18.0) gm/dL Hct (42.0-52.0) % MCV (80.0-105.0) fL MCH (25.0-35.0) pg MCHC (31.0-37.0) g/dl RDW (11.5-14.5) % Plt Count (120.0-450.0) 10^3/uL MPV (7.0-11.0) fl Gran % (50.0-68.0) % Lymph % (Auto) (22.0-35.0) % Routt % (Auto) (1.0-6.0) % Eos % (Auto) (1.5-5.0) % Baso % (Auto) (0.0-3.0) % Gran # (1.4-6.5) Lymph # (1.2-3.4) Routt # (0.1-0.6) Eos # (0.0-0.7) Baso # (0.0-2.0) K/mm3 pCO2 (35-45) mm/Hg pO2 (80-100) mm/Hg HCO3 (21-28) mmol/L ABG pH (7.35-7.45) ABG Total CO2 (22-28) mmol.L ABG O2 Saturation (95-98) % ABG O2 Content (15-23) ML/dl ABG Base Excess (-2.0-3.0) mmol/L ABG Hemoglobin (11.7-17.4) g/dL ABG Carboxyhemoglobin (0.5-1.5) % POC ABG HHb (Measured) (0-5) % ABG Methemoglobin (0.0-3.0) % ABG O2 Capacity (16-24) mL/dl Hgb O2 Saturation (95.0-98.0) % FiO2 % Sodium (132-148) mmol/L Potassium (3.6-5.0) mmol/L Chloride (98-107) mmol/L Carbon Dioxide (21-33) mmol/L Anion Gap (10-20) BUN (7-21) mg/dL Creatinine (0.5-1.4) mg/dL Est GFR ( Amer) Est GFR (Non-Af Amer) POC Glucose (mg/dL) 247 H 221 H 241 H (65-110) mg/dL Random Glucose (70-110) mg/dL Lactic Acid (0.7-2.1) mmol/L Calcium (8.4-10.5) mg/dL Phosphorus (2.5-4.5) mg/dL Magnesium (1.7-2.2) mg/dL Total Bilirubin (0.2-1.3) mg/dL AST (15-59) U/L ALT (7-56) U/L Alkaline Phosphatase (38-133) U/L Total Protein (5.8-8.3) g/dL Albumin (3.0-4.8) g/dL Globulin gm/dL Albumin/Globulin Ratio (1.1-1.8) Triglycerides (35-160) mg/dL Cholesterol (130-200) mg/dL LDL Cholesterol Direct (0-129) mg/dL HDL Cholesterol (29-60) mg/dL Procalcitonin (0.19-0.49) NG/ML TSH 3rd Generation (0.46-4.68) mIU/mL Vancomycin Trough (5.0-10.0) ug/mL HIV 1&2 Ag/Ab, 4th Gen (Nonreactive) 06/21/16 06/21/16 06/20/16 Range/Units 01:01 00:30 23:59 WBC (4.5-11.0) 10^3/ul RBC (3.5-6.1) 10^6/uL Hgb (14.0-18.0) gm/dL Hct (42.0-52.0) % MCV (80.0-105.0) fL MCH (25.0-35.0) pg MCHC (31.0-37.0) g/dl RDW (11.5-14.5) % Plt Count (120.0-450.0) 10^3/uL MPV (7.0-11.0) fl Gran % (50.0-68.0) % Lymph % (Auto) (22.0-35.0) % Routt % (Auto) (1.0-6.0) % Eos % (Auto) (1.5-5.0) % Baso % (Auto) (0.0-3.0) % Gran # (1.4-6.5) Lymph # (1.2-3.4) Routt # (0.1-0.6) Eos # (0.0-0.7) Baso # (0.0-2.0) K/mm3 pCO2 (35-45) mm/Hg pO2 (80-100) mm/Hg HCO3 (21-28) mmol/L ABG pH (7.35-7.45) ABG Total CO2 (22-28) mmol.L ABG O2 Saturation (95-98) % ABG O2 Content (15-23) ML/dl ABG Base Excess (-2.0-3.0) mmol/L ABG Hemoglobin (11.7-17.4) g/dL ABG Carboxyhemoglobin (0.5-1.5) % POC ABG HHb (Measured) (0-5) % ABG Methemoglobin (0.0-3.0) % ABG O2 Capacity (16-24) mL/dl Hgb O2 Saturation (95.0-98.0) % FiO2 % Sodium 140 (132-148) mmol/L Potassium 4.1 (3.6-5.0) mmol/L Chloride 115 H (98-107) mmol/L Carbon Dioxide 18 L (21-33) mmol/L Anion Gap 11 (10-20) BUN 15 (7-21) mg/dL Creatinine 1.2 (0.5-1.4) mg/dL Est GFR ( Amer) > 60 Est GFR (Non-Af Amer) > 60 POC Glucose (mg/dL) 265 H 250 H (65-110) mg/dL Random Glucose 233 H (70-110) mg/dL Lactic Acid (0.7-2.1) mmol/L Calcium 7.9 L (8.4-10.5) mg/dL Phosphorus (2.5-4.5) mg/dL Magnesium (1.7-2.2) mg/dL Total Bilirubin 0.9 (0.2-1.3) mg/dL AST 28 (15-59) U/L ALT 33 (7-56) U/L Alkaline Phosphatase 51 (38-133) U/L Total Protein 6.7 (5.8-8.3) g/dL Albumin 2.7 L (3.0-4.8) g/dL Globulin 4.0 gm/dL Albumin/Globulin Ratio 0.7 L (1.1-1.8) Triglycerides (35-160) mg/dL Cholesterol (130-200) mg/dL LDL Cholesterol Direct (0-129) mg/dL HDL Cholesterol (29-60) mg/dL Procalcitonin (0.19-0.49) NG/ML TSH 3rd Generation (0.46-4.68) mIU/mL Vancomycin Trough (5.0-10.0) ug/mL HIV 1&2 Ag/Ab, 4th Gen (Nonreactive) 06/20/16 06/20/16 06/20/16 Range/Units 23:02 22:05 21:04 WBC (4.5-11.0) 10^3/ul RBC (3.5-6.1) 10^6/uL Hgb (14.0-18.0) gm/dL Hct (42.0-52.0) % MCV (80.0-105.0) fL MCH (25.0-35.0) pg MCHC (31.0-37.0) g/dl RDW (11.5-14.5) % Plt Count (120.0-450.0) 10^3/uL MPV (7.0-11.0) fl Gran % (50.0-68.0) % Lymph % (Auto) (22.0-35.0) % Routt % (Auto) (1.0-6.0) % Eos % (Auto) (1.5-5.0) % Baso % (Auto) (0.0-3.0) % Gran # (1.4-6.5) Lymph # (1.2-3.4) Routt # (0.1-0.6) Eos # (0.0-0.7) Baso # (0.0-2.0) K/mm3 pCO2 (35-45) mm/Hg pO2 (80-100) mm/Hg HCO3 (21-28) mmol/L ABG pH (7.35-7.45) ABG Total CO2 (22-28) mmol.L ABG O2 Saturation (95-98) % ABG O2 Content (15-23) ML/dl ABG Base Excess (-2.0-3.0) mmol/L ABG Hemoglobin (11.7-17.4) g/dL ABG Carboxyhemoglobin (0.5-1.5) % POC ABG HHb (Measured) (0-5) % ABG Methemoglobin (0.0-3.0) % ABG O2 Capacity (16-24) mL/dl Hgb O2 Saturation (95.0-98.0) % FiO2 % Sodium (132-148) mmol/L Potassium (3.6-5.0) mmol/L Chloride (98-107) mmol/L Carbon Dioxide (21-33) mmol/L Anion Gap (10-20) BUN (7-21) mg/dL Creatinine (0.5-1.4) mg/dL Est GFR ( Amer) Est GFR (Non-Af Amer) POC Glucose (mg/dL) 228 H 280 H 277 H (65-110) mg/dL Random Glucose (70-110) mg/dL Lactic Acid (0.7-2.1) mmol/L Calcium (8.4-10.5) mg/dL Phosphorus (2.5-4.5) mg/dL Magnesium (1.7-2.2) mg/dL Total Bilirubin (0.2-1.3) mg/dL AST (15-59) U/L ALT (7-56) U/L Alkaline Phosphatase (38-133) U/L Total Protein (5.8-8.3) g/dL Albumin (3.0-4.8) g/dL Globulin gm/dL Albumin/Globulin Ratio (1.1-1.8) Triglycerides (35-160) mg/dL Cholesterol (130-200) mg/dL LDL Cholesterol Direct (0-129) mg/dL HDL Cholesterol (29-60) mg/dL Procalcitonin (0.19-0.49) NG/ML TSH 3rd Generation (0.46-4.68) mIU/mL Vancomycin Trough (5.0-10.0) ug/mL HIV 1&2 Ag/Ab, 4th Gen (Nonreactive) 06/20/16 06/20/16 06/20/16 Range/Units 20:00 20:00 19:58 WBC 7.7 D (4.5-11.0) 10^3/ul RBC 4.36 (3.5-6.1) 10^6/uL Hgb 11.9 L (14.0-18.0) gm/dL Hct 35.9 L (42.0-52.0) % MCV 82.3 (80.0-105.0) fL MCH 27.3 (25.0-35.0) pg MCHC 33.1 (31.0-37.0) g/dl RDW 14.3 (11.5-14.5) % Plt Count 141 (120.0-450.0) 10^3/uL MPV 13.1 H (7.0-11.0) fl Gran % (50.0-68.0) % Lymph % (Auto) (22.0-35.0) % [place]t % (Auto) (1.0-6.0) % Eos % (Auto) (1.5-5.0) % Baso % (Auto) (0.0-3.0) % Gran # (1.4-6.5) Lymph # (1.2-3.4) [place]t # (0.1-0.6) Eos # (0.0-0.7) Baso # (0.0-2.0) K/mm3 pCO2 (35-45) mm/Hg pO2 (80-100) mm/Hg HCO3 (21-28) mmol/L ABG pH (7.35-7.45) ABG Total CO2 (22-28) mmol.L ABG O2 Saturation (95-98) % ABG O2 Content (15-23) ML/dl ABG Base Excess (-2.0-3.0) mmol/L ABG Hemoglobin (11.7-17.4) g/dL ABG Carboxyhemoglobin (0.5-1.5) % POC ABG HHb (Measured) (0-5) % ABG Methemoglobin (0.0-3.0) % ABG O2 Capacity (16-24) mL/dl Hgb O2 Saturation (95.0-98.0) % FiO2 % Sodium 142 (132-148) mmol/L Potassium 4.0 (3.6-5.0) mmol/L Chloride 113 H (98-107) mmol/L Carbon Dioxide 16 L (21-33) mmol/L Anion Gap 17 (10-20) BUN 15 (7-21) mg/dL Creatinine 1.2 (0.5-1.4) mg/dL Est GFR ( Amer) > 60 Est GFR (Non-Af Amer) > 60 POC Glucose (mg/dL) 261 H (65-110) mg/dL Random Glucose 216 H (70-110) mg/dL Lactic Acid (0.7-2.1) mmol/L Calcium 8.3 L (8.4-10.5) mg/dL Phosphorus 1.3 L* (2.5-4.5) mg/dL Magnesium (1.7-2.2) mg/dL Total Bilirubin 1.1 (0.2-1.3) mg/dL AST 24 (15-59) U/L ALT 31 (7-56) U/L Alkaline Phosphatase 52 (38-133) U/L Total Protein 6.7 (5.8-8.3) g/dL Albumin 2.8 L (3.0-4.8) g/dL Globulin 3.8 gm/dL Albumin/Globulin Ratio 0.7 L (1.1-1.8) Triglycerides (35-160) mg/dL Cholesterol (130-200) mg/dL LDL Cholesterol Direct (0-129) mg/dL HDL Cholesterol (29-60) mg/dL Procalcitonin (0.19-0.49) NG/ML TSH 3rd Generation (0.46-4.68) mIU/mL Vancomycin Trough (5.0-10.0) ug/mL HIV 1&2 Ag/Ab, 4th Gen (Nonreactive) 06/20/16 06/20/16 06/20/16 Range/Units 19:07 18:08 17:05 WBC (4.5-11.0) 10^3/ul RBC (3.5-6.1) 10^6/uL Hgb (14.0-18.0) gm/dL Hct (42.0-52.0) % MCV (80.0-105.0) fL MCH (25.0-35.0) pg MCHC (31.0-37.0) g/dl RDW (11.5-14.5) % Plt Count (120.0-450.0) 10^3/uL MPV (7.0-11.0) fl Gran % (50.0-68.0) % Lymph % (Auto) (22.0-35.0) % Routt % (Auto) (1.0-6.0) % Eos % (Auto) (1.5-5.0) % Baso % (Auto) (0.0-3.0) % Gran # (1.4-6.5) Lymph # (1.2-3.4) Routt # (0.1-0.6) Eos # (0.0-0.7) Baso # (0.0-2.0) K/mm3 pCO2 (35-45) mm/Hg pO2 (80-100) mm/Hg HCO3 (21-28) mmol/L ABG pH (7.35-7.45) ABG Total CO2 (22-28) mmol.L ABG O2 Saturation (95-98) % ABG O2 Content (15-23) ML/dl ABG Base Excess (-2.0-3.0) mmol/L ABG Hemoglobin (11.7-17.4) g/dL ABG Carboxyhemoglobin (0.5-1.5) % POC ABG HHb (Measured) (0-5) % ABG Methemoglobin (0.0-3.0) % ABG O2 Capacity (16-24) mL/dl Hgb O2 Saturation (95.0-98.0) % FiO2 % Sodium (132-148) mmol/L Potassium (3.6-5.0) mmol/L Chloride (98-107) mmol/L Carbon Dioxide (21-33) mmol/L Anion Gap (10-20) BUN (7-21) mg/dL Creatinine (0.5-1.4) mg/dL Est GFR ( Amer) Est GFR (Non-Af Amer) POC Glucose (mg/dL) 217 H 142 H 92 (65-110) mg/dL Random Glucose (70-110) mg/dL Lactic Acid (0.7-2.1) mmol/L Calcium (8.4-10.5) mg/dL Phosphorus (2.5-4.5) mg/dL Magnesium (1.7-2.2) mg/dL Total Bilirubin (0.2-1.3) mg/dL AST (15-59) U/L ALT (7-56) U/L Alkaline Phosphatase (38-133) U/L Total Protein (5.8-8.3) g/dL Albumin (3.0-4.8) g/dL Globulin gm/dL Albumin/Globulin Ratio (1.1-1.8) Triglycerides (35-160) mg/dL Cholesterol (130-200) mg/dL LDL Cholesterol Direct (0-129) mg/dL HDL Cholesterol (29-60) mg/dL Procalcitonin (0.19-0.49) NG/ML TSH 3rd Generation (0.46-4.68) mIU/mL Vancomycin Trough (5.0-10.0) ug/mL HIV 1&2 Ag/Ab, 4th Gen (Nonreactive) 06/20/16 06/20/16 06/20/16 Range/Units 16:14 15:20 15:14 WBC (4.5-11.0) 10^3/ul RBC (3.5-6.1) 10^6/uL Hgb (14.0-18.0) gm/dL Hct (42.0-52.0) % MCV (80.0-105.0) fL MCH (25.0-35.0) pg MCHC (31.0-37.0) g/dl RDW (11.5-14.5) % Plt Count (120.0-450.0) 10^3/uL MPV (7.0-11.0) fl Gran % (50.0-68.0) % Lymph % (Auto) (22.0-35.0) % Routt % (Auto) (1.0-6.0) % Eos % (Auto) (1.5-5.0) % Baso % (Auto) (0.0-3.0) % Gran # (1.4-6.5) Lymph # (1.2-3.4) [place]t # (0.1-0.6) Eos # (0.0-0.7) Baso # (0.0-2.0) K/mm3 pCO2 (35-45) mm/Hg pO2 (80-100) mm/Hg HCO3 (21-28) mmol/L ABG pH (7.35-7.45) ABG Total CO2 (22-28) mmol.L ABG O2 Saturation (95-98) % ABG O2 Content (15-23) ML/dl ABG Base Excess (-2.0-3.0) mmol/L ABG Hemoglobin (11.7-17.4) g/dL ABG Carboxyhemoglobin (0.5-1.5) % POC ABG HHb (Measured) (0-5) % ABG Methemoglobin (0.0-3.0) % ABG O2 Capacity (16-24) mL/dl Hgb O2 Saturation (95.0-98.0) % FiO2 % Sodium 147 (132-148) mmol/L Potassium 4.1 (3.6-5.0) mmol/L Chloride 114 H (98-107) mmol/L Carbon Dioxide 20 L (21-33) mmol/L Anion Gap 17 (10-20) BUN 15 (7-21) mg/dL Creatinine 1.3 (0.5-1.4) mg/dL Est GFR ( Amer) > 60 Est GFR (Non-Af Amer) 57 POC Glucose (mg/dL) 107 197 H (65-110) mg/dL Random Glucose 111 H (70-110) mg/dL Lactic Acid (0.7-2.1) mmol/L Calcium 9.0 (8.4-10.5) mg/dL Phosphorus (2.5-4.5) mg/dL Magnesium (1.7-2.2) mg/dL Total Bilirubin 0.9 (0.2-1.3) mg/dL AST 23 (15-59) U/L ALT 23 (7-56) U/L Alkaline Phosphatase 56 (38-133) U/L Total Protein 7.8 (5.8-8.3) g/dL Albumin 3.3 (3.0-4.8) g/dL Globulin 4.5 gm/dL Albumin/Globulin Ratio 0.7 L (1.1-1.8) Triglycerides (35-160) mg/dL Cholesterol (130-200) mg/dL LDL Cholesterol Direct (0-129) mg/dL HDL Cholesterol (29-60) mg/dL Procalcitonin (0.19-0.49) NG/ML TSH 3rd Generation (0.46-4.68) mIU/mL Vancomycin Trough (5.0-10.0) ug/mL HIV 1&2 Ag/Ab, 4th Gen (Nonreactive) 06/20/16 06/20/16 06/20/16 Range/Units 14:15 13:13 12:43 WBC (4.5-11.0) 10^3/ul RBC (3.5-6.1) 10^6/uL Hgb (14.0-18.0) gm/dL Hct (42.0-52.0) % MCV (80.0-105.0) fL MCH (25.0-35.0) pg MCHC (31.0-37.0) g/dl RDW (11.5-14.5) % Plt Count (120.0-450.0) 10^3/uL MPV (7.0-11.0) fl Gran % (50.0-68.0) % Lymph % (Auto) (22.0-35.0) % Routt % (Auto) (1.0-6.0) % Eos % (Auto) (1.5-5.0) % Baso % (Auto) (0.0-3.0) % Gran # (1.4-6.5) Lymph # (1.2-3.4) [place]t # (0.1-0.6) Eos # (0.0-0.7) Baso # (0.0-2.0) K/mm3 pCO2 (35-45) mm/Hg pO2 (80-100) mm/Hg HCO3 (21-28) mmol/L ABG pH (7.35-7.45) ABG Total CO2 (22-28) mmol.L ABG O2 Saturation (95-98) % ABG O2 Content (15-23) ML/dl ABG Base Excess (-2.0-3.0) mmol/L ABG Hemoglobin (11.7-17.4) g/dL ABG Carboxyhemoglobin (0.5-1.5) % POC ABG HHb (Measured) (0-5) % ABG Methemoglobin (0.0-3.0) % ABG O2 Capacity (16-24) mL/dl Hgb O2 Saturation (95.0-98.0) % FiO2 % Sodium 142 (132-148) mmol/L Potassium 4.1 (3.6-5.0) mmol/L Chloride 116 H (98-107) mmol/L Carbon Dioxide 15 L (21-33) mmol/L Anion Gap 15 (10-20) BUN 16 (7-21) mg/dL Creatinine 1.2 (0.5-1.4) mg/dL Est GFR ( Amer) > 60 Est GFR (Non-Af Amer) > 60 POC Glucose (mg/dL) 235 H 358 H (65-110) mg/dL Random Glucose 306 H* D (70-110) mg/dL Lactic Acid (0.7-2.1) mmol/L Calcium 8.3 L (8.4-10.5) mg/dL Phosphorus 1.5 L (2.5-4.5) mg/dL Magnesium 2.3 H (1.7-2.2) mg/dL Total Bilirubin 0.9 (0.2-1.3) mg/dL AST 26 (15-59) U/L ALT 23 (7-56) U/L Alkaline Phosphatase 46 (38-133) U/L Total Protein 7.0 (5.8-8.3) g/dL Albumin 3.0 (3.0-4.8) g/dL Globulin 4.0 gm/dL Albumin/Globulin Ratio 0.7 L (1.1-1.8) Triglycerides (35-160) mg/dL Cholesterol (130-200) mg/dL LDL Cholesterol Direct (0-129) mg/dL HDL Cholesterol (29-60) mg/dL Procalcitonin (0.19-0.49) NG/ML TSH 3rd Generation (0.46-4.68) mIU/mL Vancomycin Trough (5.0-10.0) ug/mL HIV 1&2 Ag/Ab, 4th Gen (Nonreactive) 06/20/16 06/20/16 06/20/16 Range/Units 11:56 10:47 10:28 WBC (4.5-11.0) 10^3/ul RBC (3.5-6.1) 10^6/uL Hgb (14.0-18.0) gm/dL Hct (42.0-52.0) % MCV (80.0-105.0) fL MCH (25.0-35.0) pg MCHC (31.0-37.0) g/dl RDW (11.5-14.5) % Plt Count (120.0-450.0) 10^3/uL MPV (7.0-11.0) fl Gran % (50.0-68.0) % Lymph % (Auto) (22.0-35.0) % [place]t % (Auto) (1.0-6.0) % Eos % (Auto) (1.5-5.0) % Baso % (Auto) (0.0-3.0) % Gran # (1.4-6.5) Lymph # (1.2-3.4) [place]t # (0.1-0.6) Eos # (0.0-0.7) Baso # (0.0-2.0) K/mm3 pCO2 (35-45) mm/Hg pO2 (80-100) mm/Hg HCO3 (21-28) mmol/L ABG pH (7.35-7.45) ABG Total CO2 (22-28) mmol.L ABG O2 Saturation (95-98) % ABG O2 Content (15-23) ML/dl ABG Base Excess (-2.0-3.0) mmol/L ABG Hemoglobin (11.7-17.4) g/dL ABG Carboxyhemoglobin (0.5-1.5) % POC ABG HHb (Measured) (0-5) % ABG Methemoglobin (0.0-3.0) % ABG O2 Capacity (16-24) mL/dl Hgb O2 Saturation (95.0-98.0) % FiO2 % Sodium (132-148) mmol/L Potassium (3.6-5.0) mmol/L Chloride (98-107) mmol/L Carbon Dioxide (21-33) mmol/L Anion Gap (10-20) BUN (7-21) mg/dL Creatinine (0.5-1.4) mg/dL Est GFR ( Amer) Est GFR (Non-Af Amer) POC Glucose (mg/dL) 368 H 473 H* (65-110) mg/dL Random Glucose (70-110) mg/dL Lactic Acid (0.7-2.1) mmol/L Calcium (8.4-10.5) mg/dL Phosphorus (2.5-4.5) mg/dL Magnesium (1.7-2.2) mg/dL Total Bilirubin (0.2-1.3) mg/dL AST (15-59) U/L ALT (7-56) U/L Alkaline Phosphatase (38-133) U/L Total Protein (5.8-8.3) g/dL Albumin (3.0-4.8) g/dL Globulin gm/dL Albumin/Globulin Ratio (1.1-1.8) Triglycerides (35-160) mg/dL Cholesterol (130-200) mg/dL LDL Cholesterol Direct (0-129) mg/dL HDL Cholesterol (29-60) mg/dL Procalcitonin (0.19-0.49) NG/ML TSH 3rd Generation (0.46-4.68) mIU/mL Vancomycin Trough (5.0-10.0) ug/mL HIV 1&2 Ag/Ab, 4th Gen Nonreactive (Nonreactive) 06/20/16 06/20/16 06/19/16 Range/Units 10:10 10:08 23:15 WBC (4.5-11.0) 10^3/ul RBC (3.5-6.1) 10^6/uL Hgb (14.0-18.0) gm/dL Hct (42.0-52.0) % MCV (80.0-105.0) fL MCH (25.0-35.0) pg MCHC (31.0-37.0) g/dl RDW (11.5-14.5) % Plt Count (120.0-450.0) 10^3/uL MPV (7.0-11.0) fl Gran % (50.0-68.0) % Lymph % (Auto) (22.0-35.0) % Routt % (Auto) (1.0-6.0) % Eos % (Auto) (1.5-5.0) % Baso % (Auto) (0.0-3.0) % Gran # (1.4-6.5) Lymph # (1.2-3.4) Routt # (0.1-0.6) Eos # (0.0-0.7) Baso # (0.0-2.0) K/mm3 pCO2 (35-45) mm/Hg pO2 (80-100) mm/Hg HCO3 (21-28) mmol/L ABG pH (7.35-7.45) ABG Total CO2 (22-28) mmol.L ABG O2 Saturation (95-98) % ABG O2 Content (15-23) ML/dl ABG Base Excess (-2.0-3.0) mmol/L ABG Hemoglobin (11.7-17.4) g/dL ABG Carboxyhemoglobin (0.5-1.5) % POC ABG HHb (Measured) (0-5) % ABG Methemoglobin (0.0-3.0) % ABG O2 Capacity (16-24) mL/dl Hgb O2 Saturation (95.0-98.0) % FiO2 % Sodium 145 (132-148) mmol/L Potassium 4.1 (3.6-5.0) mmol/L Chloride 116 H (98-107) mmol/L Carbon Dioxide 17 L (21-33) mmol/L Anion Gap 16 (10-20) BUN 16 (7-21) mg/dL Creatinine 1.2 (0.5-1.4) mg/dL Est GFR ( Amer) > 60 Est GFR (Non-Af Amer) > 60 POC Glucose (mg/dL) (65-110) mg/dL Random Glucose 366 H* D (70-110) mg/dL Lactic Acid 3.5 H (0.7-2.1) mmol/L Calcium 8.7 (8.4-10.5) mg/dL Phosphorus 1.7 L (2.5-4.5) mg/dL Magnesium 2.3 H (1.7-2.2) mg/dL Total Bilirubin (0.2-1.3) mg/dL AST (15-59) U/L ALT (7-56) U/L Alkaline Phosphatase (38-133) U/L Total Protein (5.8-8.3) g/dL Albumin (3.0-4.8) g/dL Globulin gm/dL Albumin/Globulin Ratio (1.1-1.8) Triglycerides (35-160) mg/dL Cholesterol (130-200) mg/dL LDL Cholesterol Direct (0-129) mg/dL HDL Cholesterol (29-60) mg/dL Procalcitonin 20.42 H (0.19-0.49) NG/ML TSH 3rd Generation (0.46-4.68) mIU/mL Vancomycin Trough (5.0-10.0) ug/mL HIV 1&2 Ag/Ab, 4th Gen (Nonreactive) Laboratory Results - last 24 hr 06/19/16 06/20/16 06/20/16 23:15 10:08 10:10 WBC RBC Hgb Hct MCV MCH MCHC RDW Plt Count MPV Gran % Lymph % (Auto) Routt % (Auto) Eos % (Auto) Baso % (Auto) Gran # Lymph # Routt # Eos # Baso # pCO2 pO2 HCO3 ABG pH ABG Total CO2 ABG O2 Saturation ABG O2 Content ABG Base Excess ABG Hemoglobin ABG Carboxyhemoglobin POC ABG HHb (Measured) ABG Methemoglobin ABG O2 Capacity Hgb O2 Saturation FiO2 Sodium 145 Potassium 4.1 Chloride 116 H Carbon Dioxide 17 L Anion Gap 16 BUN 16 Creatinine 1.2 Est GFR ( Amer) > 60 Est GFR (Non-Af Amer) > 60 POC Glucose (mg/dL) Random Glucose 366 H* D Lactic Acid 3.5 H Calcium 8.7 Phosphorus 1.7 L Magnesium 2.3 H Total Bilirubin AST ALT Alkaline Phosphatase Total Protein Albumin Globulin Albumin/Globulin Ratio Triglycerides Cholesterol LDL Cholesterol Direct HDL Cholesterol Procalcitonin 20.42 H TSH 3rd Generation Vancomycin Trough HIV 1&2 Ag/Ab, 4th Gen 06/20/16 06/20/16 06/20/16 10:28 10:47 11:56 WBC RBC Hgb Hct MCV MCH MCHC RDW Plt Count MPV Gran % Lymph % (Auto) Routt % (Auto) Eos % (Auto) Baso % (Auto) Gran # Lymph # Routt # Eos # Baso # pCO2 pO2 HCO3 ABG pH ABG Total CO2 ABG O2 Saturation ABG O2 Content ABG Base Excess ABG Hemoglobin ABG Carboxyhemoglobin POC ABG HHb (Measured) ABG Methemoglobin ABG O2 Capacity Hgb O2 Saturation FiO2 Sodium Potassium Chloride Carbon Dioxide Anion Gap BUN Creatinine Est GFR ( Amer) Est GFR (Non-Af Amer) POC Glucose (mg/dL) 473 H* 368 H Random Glucose Lactic Acid Calcium Phosphorus Magnesium Total Bilirubin AST ALT Alkaline Phosphatase Total Protein Albumin Globulin Albumin/Globulin Ratio Triglycerides Cholesterol LDL Cholesterol Direct HDL Cholesterol Procalcitonin TSH 3rd Generation Vancomycin Trough HIV 1&2 Ag/Ab, 4th Gen Nonreactive 06/20/16 06/20/16 06/20/16 12:43 13:13 14:15 WBC RBC Hgb Hct MCV MCH MCHC RDW Plt Count MPV Gran % Lymph % (Auto) [place]t % (Auto) Eos % (Auto) Baso % (Auto) Gran # Lymph # [place]t # Eos # Baso # pCO2 pO2 HCO3 ABG pH ABG Total CO2 ABG O2 Saturation ABG O2 Content ABG Base Excess ABG Hemoglobin ABG Carboxyhemoglobin POC ABG HHb (Measured) ABG Methemoglobin ABG O2 Capacity Hgb O2 Saturation FiO2 Sodium 142 Potassium 4.1 Chloride 116 H Carbon Dioxide 15 L Anion Gap 15 BUN 16 Creatinine 1.2 Est GFR ( Amer) > 60 Est GFR (Non-Af Amer) > 60 POC Glucose (mg/dL) 358 H 235 H Random Glucose 306 H* D Lactic Acid Calcium 8.3 L Phosphorus 1.5 L Magnesium 2.3 H Total Bilirubin 0.9 AST 26 ALT 23 Alkaline Phosphatase 46 Total Protein 7.0 Albumin 3.0 Globulin 4.0 Albumin/Globulin Ratio 0.7 L Triglycerides Cholesterol LDL Cholesterol Direct HDL Cholesterol Procalcitonin TSH 3rd Generation Vancomycin Trough HIV 1&2 Ag/Ab, 4th Gen 06/20/16 06/20/16 06/20/16 15:14 15:20 16:14 WBC RBC Hgb Hct MCV MCH MCHC RDW Plt Count MPV Gran % Lymph % (Auto) Routt % (Auto) Eos % (Auto) Baso % (Auto) Gran # Lymph # [place]t # Eos # Baso # pCO2 pO2 HCO3 ABG pH ABG Total CO2 ABG O2 Saturation ABG O2 Content ABG Base Excess ABG Hemoglobin ABG Carboxyhemoglobin POC ABG HHb (Measured) ABG Methemoglobin ABG O2 Capacity Hgb O2 Saturation FiO2 Sodium 147 Potassium 4.1 Chloride 114 H Carbon Dioxide 20 L Anion Gap 17 BUN 15 Creatinine 1.3 Est GFR ( Amer) > 60 Est GFR (Non-Af Amer) 57 POC Glucose (mg/dL) 197 H 107 Random Glucose 111 H Lactic Acid Calcium 9.0 Phosphorus Magnesium Total Bilirubin 0.9 AST 23 ALT 23 Alkaline Phosphatase 56 Total Protein 7.8 Albumin 3.3 Globulin 4.5 Albumin/Globulin Ratio 0.7 L Triglycerides Cholesterol LDL Cholesterol Direct HDL Cholesterol Procalcitonin TSH 3rd Generation Vancomycin Trough HIV 1&2 Ag/Ab, 4th Gen 06/20/16 06/20/16 06/20/16 17:05 18:08 19:07 WBC RBC Hgb Hct MCV MCH MCHC RDW Plt Count MPV Gran % Lymph % (Auto) [place]t % (Auto) Eos % (Auto) Baso % (Auto) Gran # Lymph # Routt # Eos # Baso # pCO2 pO2 HCO3 ABG pH ABG Total CO2 ABG O2 Saturation ABG O2 Content ABG Base Excess ABG Hemoglobin ABG Carboxyhemoglobin POC ABG HHb (Measured) ABG Methemoglobin ABG O2 Capacity Hgb O2 Saturation FiO2 Sodium Potassium Chloride Carbon Dioxide Anion Gap BUN Creatinine Est GFR ( Amer) Est GFR (Non-Af Amer) POC Glucose (mg/dL) 92 142 H 217 H Random Glucose Lactic Acid Calcium Phosphorus Magnesium Total Bilirubin AST ALT Alkaline Phosphatase Total Protein Albumin Globulin Albumin/Globulin Ratio Triglycerides Cholesterol LDL Cholesterol Direct HDL Cholesterol Procalcitonin TSH 3rd Generation Vancomycin Trough HIV 1&2 Ag/Ab, 4th Gen 06/20/16 06/20/16 06/20/16 19:58 20:00 20:00 WBC 7.7 D RBC 4.36 Hgb 11.9 L Hct 35.9 L MCV 82.3 MCH 27.3 MCHC 33.1 RDW 14.3 Plt Count 141 MPV 13.1 H Gran % Lymph % (Auto) [place]t % (Auto) Eos % (Auto) Baso % (Auto) Gran # Lymph # [place]t # Eos # Baso # pCO2 pO2 HCO3 ABG pH ABG Total CO2 ABG O2 Saturation ABG O2 Content ABG Base Excess ABG Hemoglobin ABG Carboxyhemoglobin POC ABG HHb (Measured) ABG Methemoglobin ABG O2 Capacity Hgb O2 Saturation FiO2 Sodium 142 Potassium 4.0 Chloride 113 H Carbon Dioxide 16 L Anion Gap 17 BUN 15 Creatinine 1.2 Est GFR ( Amer) > 60 Est GFR (Non-Af Amer) > 60 POC Glucose (mg/dL) 261 H Random Glucose 216 H Lactic Acid Calcium 8.3 L Phosphorus 1.3 L* Magnesium Total Bilirubin 1.1 AST 24 ALT 31 Alkaline Phosphatase 52 Total Protein 6.7 Albumin 2.8 L Globulin 3.8 Albumin/Globulin Ratio 0.7 L Triglycerides Cholesterol LDL Cholesterol Direct HDL Cholesterol Procalcitonin TSH 3rd Generation Vancomycin Trough HIV 1&2 Ag/Ab, 4th Gen 06/20/16 06/20/16 06/20/16 21:04 22:05 23:02 WBC RBC Hgb Hct MCV MCH MCHC RDW Plt Count MPV Gran % Lymph % (Auto) [place]t % (Auto) Eos % (Auto) Baso % (Auto) Gran # Lymph # [place]t # Eos # Baso # pCO2 pO2 HCO3 ABG pH ABG Total CO2 ABG O2 Saturation ABG O2 Content ABG Base Excess ABG Hemoglobin ABG Carboxyhemoglobin POC ABG HHb (Measured) ABG Methemoglobin ABG O2 Capacity Hgb O2 Saturation FiO2 Sodium Potassium Chloride Carbon Dioxide Anion Gap BUN Creatinine Est GFR ( Amer) Est GFR (Non-Af Amer) POC Glucose (mg/dL) 277 H 280 H 228 H Random Glucose Lactic Acid Calcium Phosphorus Magnesium Total Bilirubin AST ALT Alkaline Phosphatase Total Protein Albumin Globulin Albumin/Globulin Ratio Triglycerides Cholesterol LDL Cholesterol Direct HDL Cholesterol Procalcitonin TSH 3rd Generation Vancomycin Trough HIV 1&2 Ag/Ab, 4th Gen 06/20/16 06/21/16 06/21/16 23:59 00:30 01:01 WBC RBC Hgb Hct MCV MCH MCHC RDW Plt Count MPV Gran % Lymph % (Auto) [place]t % (Auto) Eos % (Auto) Baso % (Auto) Gran # Lymph # [place]t # Eos # Baso # pCO2 pO2 HCO3 ABG pH ABG Total CO2 ABG O2 Saturation ABG O2 Content ABG Base Excess ABG Hemoglobin ABG Carboxyhemoglobin POC ABG HHb (Measured) ABG Methemoglobin ABG O2 Capacity Hgb O2 Saturation FiO2 Sodium 140 Potassium 4.1 Chloride 115 H Carbon Dioxide 18 L Anion Gap 11 BUN 15 Creatinine 1.2 Est GFR ( Amer) > 60 Est GFR (Non-Af Amer) > 60 POC Glucose (mg/dL) 250 H 265 H Random Glucose 233 H Lactic Acid Calcium 7.9 L Phosphorus Magnesium Total Bilirubin 0.9 AST 28 ALT 33 Alkaline Phosphatase 51 Total Protein 6.7 Albumin 2.7 L Globulin 4.0 Albumin/Globulin Ratio 0.7 L Triglycerides Cholesterol LDL Cholesterol Direct HDL Cholesterol Procalcitonin TSH 3rd Generation Vancomycin Trough HIV 1&2 Ag/Ab, 4th Gen 06/21/16 06/21/16 06/21/16 02:01 03:03 03:58 WBC RBC Hgb Hct MCV MCH MCHC RDW Plt Count MPV Gran % Lymph % (Auto) [place]t % (Auto) Eos % (Auto) Baso % (Auto) Gran # Lymph # [place]t # Eos # Baso # pCO2 pO2 HCO3 ABG pH ABG Total CO2 ABG O2 Saturation ABG O2 Content ABG Base Excess ABG Hemoglobin ABG Carboxyhemoglobin POC ABG HHb (Measured) ABG Methemoglobin ABG O2 Capacity Hgb O2 Saturation FiO2 Sodium Potassium Chloride Carbon Dioxide Anion Gap BUN Creatinine Est GFR ( Amer) Est GFR (Non-Af Amer) POC Glucose (mg/dL) 241 H 221 H 247 H Random Glucose Lactic Acid Calcium Phosphorus Magnesium Total Bilirubin AST ALT Alkaline Phosphatase Total Protein Albumin Globulin Albumin/Globulin Ratio Triglycerides Cholesterol LDL Cholesterol Direct HDL Cholesterol Procalcitonin TSH 3rd Generation Vancomycin Trough HIV 1&2 Ag/Ab, 4th Gen 06/21/16 06/21/16 06/21/16 04:20 04:20 04:20 WBC 8.8 RBC 4.28 Hgb 11.9 L Hct 35.3 L MCV 82.5 MCH 27.8 MCHC 33.7 RDW 14.4 Plt Count 132 MPV 13.2 H Gran % 76.2 H Lymph % (Auto) 15.0 L Routt % (Auto) 8.7 H Eos % (Auto) 0.0 L Baso % (Auto) 0.1 Gran # 6.72 H Lymph # 1.3 Routt # 0.8 H Eos # 0.0 Baso # 0.01 pCO2 pO2 HCO3 ABG pH ABG Total CO2 ABG O2 Saturation ABG O2 Content ABG Base Excess ABG Hemoglobin ABG Carboxyhemoglobin POC ABG HHb (Measured) ABG Methemoglobin ABG O2 Capacity Hgb O2 Saturation FiO2 Sodium 140 Potassium 4.4 Chloride 113 H Carbon Dioxide 18 L Anion Gap 13 BUN 14 Creatinine 1.2 Est GFR ( Amer) > 60 Est GFR (Non-Af Amer) > 60 POC Glucose (mg/dL) Random Glucose 213 H Lactic Acid Calcium 7.9 L Phosphorus 2.5 Magnesium Total Bilirubin 1.1 AST 24 ALT 30 Alkaline Phosphatase 54 Total Protein 6.8 Albumin 2.8 L Globulin 4.0 Albumin/Globulin Ratio 0.7 L Triglycerides 92 Cholesterol 123 L LDL Cholesterol Direct 54 HDL Cholesterol 25 L Procalcitonin TSH 3rd Generation Vancomycin Trough 13.4 H HIV 1&2 Ag/Ab, 4th Gen 06/21/16 06/21/16 06/21/16 04:20 04:20 05:50 WBC RBC Hgb Hct MCV MCH MCHC RDW Plt Count MPV Gran % Lymph % (Auto) [place] % (Auto) Eos % (Auto) Baso % (Auto) Gran # Lymph # [place]t # Eos # Baso # pCO2 19 L* pO2 71.0 L HCO3 10.7 L ABG pH 7.36 ABG Total CO2 11.3 L ABG O2 Saturation 97.7 ABG O2 Content 10.8 L ABG Base Excess -13.2 L ABG Hemoglobin 7.9 L ABG Carboxyhemoglobin 1.1 POC ABG HHb (Measured) 2.3 ABG Methemoglobin 0.4 ABG O2 Capacity 11.1 L Hgb O2 Saturation 96.2 FiO2 28.0 Sodium Potassium Chloride Carbon Dioxide Anion Gap BUN Creatinine Est GFR ( Amer) Est GFR (Non-Af Amer) POC Glucose (mg/dL) Random Glucose Lactic Acid 2.5 H Calcium Phosphorus Magnesium Total Bilirubin AST ALT Alkaline Phosphatase Total Protein Albumin Globulin Albumin/Globulin Ratio Triglycerides Cholesterol LDL Cholesterol Direct HDL Cholesterol Procalcitonin TSH 3rd Generation 0.02 L Vancomycin Trough HIV 1&2 Ag/Ab, 4th Gen 06/21/16 06/21/16 06/21/16 06:06 06:59 07:52 WBC RBC Hgb Hct MCV MCH MCHC RDW Plt Count MPV Gran % Lymph % (Auto) [place]t % (Auto) Eos % (Auto) Baso % (Auto) Gran # Lymph # [place]t # Eos # Baso # pCO2 pO2 HCO3 ABG pH ABG Total CO2 ABG O2 Saturation ABG O2 Content ABG Base Excess ABG Hemoglobin ABG Carboxyhemoglobin POC ABG HHb (Measured) ABG Methemoglobin ABG O2 Capacity Hgb O2 Saturation FiO2 Sodium Potassium Chloride Carbon Dioxide Anion Gap BUN Creatinine Est GFR ( Amer) Est GFR (Non-Af Amer) POC Glucose (mg/dL) 251 H 181 H 279 H Random Glucose Lactic Acid Calcium Phosphorus Magnesium Total Bilirubin AST ALT Alkaline Phosphatase Total Protein Albumin Globulin Albumin/Globulin Ratio Triglycerides Cholesterol LDL Cholesterol Direct HDL Cholesterol Procalcitonin TSH 3rd Generation Vancomycin Trough HIV 1&2 Ag/Ab, 4th Gen 06/21/16 06/21/16 06/21/16 08:15 08:58 10:00 WBC RBC Hgb Hct MCV MCH MCHC RDW Plt Count MPV Gran % Lymph % (Auto) [place] % (Auto) Eos % (Auto) Baso % (Auto) Gran # Lymph # [place]t # Eos # Baso # pCO2 pO2 HCO3 ABG pH ABG Total CO2 ABG O2 Saturation ABG O2 Content ABG Base Excess ABG Hemoglobin ABG Carboxyhemoglobin POC ABG HHb (Measured) ABG Methemoglobin ABG O2 Capacity Hgb O2 Saturation FiO2 Sodium 142 Potassium 4.2 Chloride 112 H Carbon Dioxide 20 L Anion Gap 14 BUN 13 Creatinine 1.1 Est GFR ( Amer) > 60 Est GFR (Non-Af Amer) > 60 POC Glucose (mg/dL) 215 H 190 H Random Glucose 196 H Lactic Acid Calcium 7.9 L Phosphorus Magnesium Total Bilirubin 0.9 AST 25 ALT 29 Alkaline Phosphatase 55 Total Protein 6.5 Albumin 2.7 L Globulin 3.8 Albumin/Globulin Ratio 0.7 L Triglycerides Cholesterol LDL Cholesterol Direct HDL Cholesterol Procalcitonin TSH 3rd Generation Vancomycin Trough HIV 1&2 Ag/Ab, 4th Gen Fingerstick Blood Sugar Results: 190 Review of Systems - EENT Eyes: UNREMARKABLE - Respiratory Respiratory: Dyspnea, Dyspnea on Exertion, Chest Congestion Critical Care Progress Note - Ventilator Checklist Head of Bed 30 Degrees: Yes Daily Sedation Vacation: Yes Daily Assessment of Readiness to Wean: Yes Daily Spontaneous Breathing Trial: Yes PUD Prophalyxis: Yes DVT Prophylaxis: Yes Oral Care with Chlorhexidine Gluconate {CHG}: Yes - Nutrition Nutrition: Nutrition Category Date Time Status Diabetic [Consistent Carbohydrate] [DIET] Diets 06/21/16 Breakfast Ordered Diabetic [Consistent Carbohydrate] [DIET] Diets 06/21/16 Lunch Ordered Assessment/Plan - Assessment and Plan (Free Text) Assessment: 61 y/o M w/ SOB, DYspnea, Lethargy Multifocal PNA Chest CT shows mutifocal PNA w/ Tree/ bed changes. Unclear if the tree/bud changes were present [facility] and not the new infiltrates are superimposed. Blood cx Gram + in clusters, likely STAPH. Likely Staph PNA On Vancomycyin and Zosyn empiric treatment On 3 L NC o2 sat> 94 % Sputum cx sent and AFB x 3. Less likely TB but with the CT findings, will continue isolation and AFB r/o. ECHO images awaiting final read, valves and vegetations to be r/o for possible septic emboli. DKA Currently being weaned off Insulin drip Levemir to be given, and sliding scale started untill patient starts eating meals regularly . Pre meal insulin can be added at that point. Bicarbonate 20 on BMP, inconsistent with ABG. Repeat BMPq 4hrs to monitor. HGA1C pending. DVT p Heparin SQ tid ppi cc time 72 min
[2016-06-21] MEDS: Insulin Reg-LOW-Coverage SC SCH ×3 (11:35→23:10)
[2016-06-21 12:41] LABS: ALB/GLOB RATIO 0.7 (1.1-1.8); ALKALINE PHOSPHATASE 60 U/L (38-133); ALT/SGPT 33 U/L (7-56); AST/SGOT 29 U/L (15-59); BILIRUBIN,TOTAL 0.8 mg/dL (0.2-1.3); BLOOD UREA NITROGEN 12 mg/dL (7-21); CALCIUM 7.9 mg/dL (8.4-10.5); CARBON DIOXIDE 17 mmol/L (21-33); CHLORIDE 112 mmol/L (98-107); GFR AFRICAN-AMERICAN > 60; GLUCOSE,RANDOM 136 mg/dL (70-110); POTASSIUM 3.7 mmol/L (3.6-5.0); SODIUM 142 mmol/L (132-148); TOTAL PROTEIN 6.7 g/dL (5.8-8.3)
--- NOTE | 2016-06-21 12:46 | CP.PCM.PN ---
<Aaron Oneal - Last Filed: 06/21/16 12:47> Subjective - Date & Time of Evaluation Date of Evaluation: 06/21/16 Time of Evaluation: 10:25 - Subjective Subjective: 61 year old man with history of HTN and NIDDM who presents with 2 days of generalized weakness, polydysia, polyuria, hemoptysis, cough with green-colored sputum, intermittent confusion and some mild SOB. Today, he is coughing up brown colored sputum. He still complains of generalized weakness and cough, but otherwise had no other complaints and denies chest pain, difficulty breathing, nausea, vomiting, or diarrhea. Objective - Vital Signs/Intake and Output Vital Signs (last 24 hours): Temp Pulse Resp BP Pulse Ox 99.6 F 81 28 H 136/61 100 06/21/16 04:00 06/21/16 10:00 06/21/16 07:30 06/21/16 10:01 06/21/16 07:30 Intake and Output: 06/21/16 06/21/16 06:59 18:59 Intake Total 2318.9 1371.1 Output Total 900 Balance 1418.9 1371.1 - Medications Medications: Current Medications Acetaminophen (Tylenol 325mg Tab) 650 mg PO Q6H PRN PRN Reason: Fever >100.4 F Last Admin: 06/20/16 19:57 Dose: 650 mg Amlodipine Besylate (Norvasc) 10 mg PO DAILY [facility] Last Admin: 06/21/16 10:01 Dose: 10 mg Clonidine HCl (Catapres) 0.1 mg PO TID PRN PRN Reason: Systolic Blood Pressure Last Admin: 06/21/16 10:00 Dose: 0.1 mg Vancomycin HCl (Vancomycin 1gm) 1 gm in 250 mls @ 167 mls/hr IVPB Q12H [facility] PRN Reason: Protocol Last Admin: 06/21/16 11:46 Dose: 167 mls/hr Piperacillin Sod/Tazobactam Sod (Zosyn 3.375 In Ns 100ml) 100 mls @ 200 mls/hr IVPB Q6 [facility] PRN Reason: Protocol Last Admin: 06/21/16 11:38 Dose: 200 mls/hr Dextrose/Sodium Chloride (Dextrose 5%/0.9% Ns 1000 Ml) 1,000 mls @ 150 mls/hr IV .Q6H40M [facility] Last Admin: 06/21/16 09:57 Dose: 150 mls/hr Insulin Human Regular (Humulin R Low) 0 units SC ACHS [facility] PRN Reason: Protocol Last Admin: 06/21/16 11:35 Dose: 2 units Lisinopril (Zestril) 30 mg PO DAILY [facility] Last Admin: 06/21/16 09:59 Dose: 30 mg Metoclopramide HCl (Reglan) 10 mg IVP Q6H PRN PRN Reason: Nausea/Vomiting Pantoprazole Sodium (Protonix Inj) 40 mg IVP DAILY [facility] Last Admin: 06/21/16 09:59 Dose: 40 mg - Labs Labs: 06/21/16 04:20 06/21/16 12:20 PT 10.7 Seconds (9.9-11.8) 06/19/16 18:15 INR 0.99 (0.93-1.08) 06/19/16 18:15 APTT 30.8 Seconds (23.7-30.8) 06/19/16 18:15 - Constitutional Appears: Non-toxic, No Acute Distress - Head Exam Head Exam: ATRAUMATIC, NORMOCEPHALIC - Eye Exam Eye Exam: EOMI - ENT Exam ENT Exam: Mucous Membranes Moist - Respiratory Exam Respiratory Exam: Rhonchi, NORMAL BREATHING PATTERN - Cardiovascular Exam Cardiovascular Exam: REGULAR RHYTHM, RRR, +S1, +S2. absent: JVD - GI/Abdominal Exam GI & Abdominal Exam: Soft, Tenderness, Normal Bowel Sounds - Extremities Exam Extremities Exam: absent: Joint Swelling, Pedal Edema - Back Exam Back Exam: tenderness. absent: rash noted - Neurological Exam Neurological Exam: Alert, Awake, Oriented x3 - Psychiatric Exam Psychiatric exam: Flat Affect, Normal Mood - Skin Skin Exam: Dry, Intact, Normal Color, Warm Assessment and Plan - Assessment and Plan (Free Text) Assessment: The patient is a 61 year old man with history of HTN and NIDDM who is being admitted to the ICU for DKA, hemoptysis and sepsis due to a right- sided PNA. Plan: 1. Diabetic Ketoacidosis (without coma): -will follow ICU recs -due to medication non-compliance -Insulin drip per Algorithm 1 protocol -NPO except meds while on Insulin drip, currently being weaned off drip -aggressive IVF's initially with NS@200cc/hr -no need for supplemental potassium at this time since initial K=5.5 -once fingerstick <vd=185, change IVF's to D51/2NS@150cc/hr -check serial BMP's, VBG's, Mag and Phos Q4hrs x 6 -HgA1c ordered -symptoms of generalized weakness likely due to DKA -Levemir to be given, and sliding scale started untill patient starts eating meals regularly . Pre meal insulin can be added at that point. 2. Sepsis (due to pneumonia): -empiric IV antibiotics -aggressive IVF's -check procalcitonin 20.42 -repeat lactic acid -check HIV non-reactive -ID consult Dr. Hankins - will follow ID recs -pneumonic picture with a possibility for TB. Risks for TB appear to be low. The patient for acid-fast testing of the sputum x 3 -On Vancomycin and Zosyn. gram positive cocci in blood cultures. -ECHO images awaiting final read, valves and vegetations to be r/o for possible septic emboli. 2. Right-sided Pneumonia: -will treat empirically with IV Vanco and Zosyn -blood cultures - gram positive cocci -urine cultures - pending -procalcitonin 20 high -lactic acid 3.5 high -TB will be ruled out with three sputum AFB samples -airborne precautions while TB is being ruled out -monitor serial ABG's -Chest CT shows mutifocal PNA w/ Tree/ bed changes. Unclear if the tree/bud changes were present fci and not the new infiltrates are superimposed. 3. Acute Hemoptysis: -ddx: TB vs malignancy -will rule out TB with three sets of sputum AFB samples -airborne precautions while TB is being ruled out -avoid anticoagulation -given infiltrates on CXR, absence of respiratory distress and a normal O2 sat, suspicion for acute PE is low -however, if pt's symptoms deteriorate despite IV antibiotics, will then consider a CT-PA 4. Acute Kidney Injury: -likely pre-renal etiology due to intravascular depletion -serum Cr expected to correct after aggressive IVF's -Cr dropped to 1.1 -renally dose all meds until serum Cr corrects 5. Poorly Controlled Hypertension: -due to medication non-compliance -Lisinopril 30mg po daily plus Norvasc 10mg po daily -Clonidine 0.1mg po TID PRN SBP>165 DVT PPx: Heparin SQ tid GI PPx: Protonix <Olson,Ashley B - Last Filed: 06/21/16 18:50> Objective - Vital Signs/Intake and Output Vital Signs (last 24 hours): Temp Pulse Resp BP Pulse Ox 99.4 F 85 36 H 119/44 L 98 06/21/16 12:00 06/21/16 18:10 06/21/16 18:10 06/21/16 18:00 06/21/16 18:10 Intake and Output: 06/21/16 06/21/16 06:59 18:59 Intake Total 2318.9 4671.1 Output Total 900 1000 Balance 1418.9 3671.1 - Medications Medications: Current Medications Acetaminophen (Tylenol 325mg Tab) 650 mg PO Q6H PRN PRN Reason: Fever >100.4 F Last Admin: 06/21/16 17:27 Dose: 650 mg Amlodipine Besylate (Norvasc) 10 mg PO DAILY [facility] Last Admin: 06/21/16 10:01 Dose: 10 mg Clonidine HCl (Catapres) 0.1 mg PO TID PRN PRN Reason: Systolic Blood Pressure Last Admin: 06/21/16 10:00 Dose: 0.1 mg Vancomycin HCl (Vancomycin 1gm) 1 gm in 250 mls @ 167 mls/hr IVPB Q12H [facility] PRN Reason: Protocol Last Admin: 06/21/16 11:46 Dose: 167 mls/hr Piperacillin Sod/Tazobactam Sod (Zosyn 3.375 In Ns 100ml) 100 mls @ 200 mls/hr IVPB Q6 [facility] PRN Reason: Protocol Last Admin: 06/21/16 17:07 Dose: 200 mls/hr Dextrose/Sodium Chloride (Dextrose 5%/0.9% Ns 1000 Ml) 1,000 mls @ 150 mls/hr IV .Q6H40M [facility] Last Admin: 06/21/16 17:03 Dose: 150 mls/hr Insulin Human Regular (Humulin R Low) 0 units SC ACHS [facility] PRN Reason: Protocol Last Admin: 06/21/16 17:06 Dose: 3 units Lisinopril (Zestril) 30 mg PO DAILY [facility] Last Admin: 06/21/16 09:59 Dose: 30 mg Metoclopramide HCl (Reglan) 10 mg IVP Q6H PRN PRN Reason: Nausea/Vomiting Pantoprazole Sodium (Protonix Inj) 40 mg IVP DAILY [facility] Last Admin: 06/21/16 09:59 Dose: 40 mg - Labs Labs: 06/21/16 04:20 06/21/16 16:15 PT 10.7 Seconds (9.9-11.8) 06/19/16 18:15 INR 0.99 (0.93-1.08) 06/19/16 18:15 APTT 30.8 Seconds (23.7-30.8) 06/19/16 18:15 Attending/Attestation - Attestation I have personally seen and examined this patient.: Yes I have fully participated in the care of the patient.: Yes I have reviewed all pertinent clinical information, including history, physical exam and plan: Yes Notes (Text): I have seen and examined patient at bedside. I agree with the above note with the following additions/ exceptions: This is 61 year old man with history of HTN and NIDDM who presented with generalized weakness, polydysia, polyuria, hemoptysis, cough with greenish/ brown colored sputum, intermittent confusion and found to have DKA, hemoptysis and sepsis due to a multifocal pneumonia and GPC bacteremia. CT chest showed multifocal pneumonia with tree in bud pattern. There is a suspicion for TB and patient is on isolation. AFB x 2 sent. Blood culture are growing gram positive cocci in clusters. Echo pending. He is currently being weaned off from insulin drip and is being managed in ICU. HBA1C pending. Also on empiric antibiotics vancomycin and zosyn. 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 BP is stable. Renal function back to normal. Dr Ashley Olson
[2016-06-21 16:34] LABS: ALB/GLOB RATIO 0.7 (1.1-1.8); ALKALINE PHOSPHATASE 55 U/L (38-133); ALT/SGPT 33 U/L (7-56); AST/SGOT 26 U/L (15-59); BILIRUBIN,TOTAL 0.8 mg/dL (0.2-1.3); BLOOD UREA NITROGEN 13 mg/dL (7-21); CALCIUM 7.7 mg/dL (8.4-10.5); CARBON DIOXIDE 18 mmol/L (21-33); CHLORIDE 111 mmol/L (98-107); GFR AFRICAN-AMERICAN > 60; GLUCOSE,RANDOM 230 mg/dL (70-110); POTASSIUM 3.8 mmol/L (3.6-5.0); SODIUM 139 mmol/L (132-148); TOTAL PROTEIN 6.2 g/dL (5.8-8.3)
--- NOTE | 2016-06-21 18:51 | CP.PCM.PN ---
Subjective - Date & Time of Evaluation Date of Evaluation: 06/21/16 Time of Evaluation: 16:15 - Subjective Subjective: Infectious Disease Consultation: June 21, 2016 61 yo male with presentation of 2 days of generalized weakness, polydysia, polyuria, hemoptysis, cough with green-colored sputum, intermittent confusion and some mild SOB. On CT scan, tree in bud formations seen. Patient placed under respiratory isolation for TB workup. The patient has no recent travel history. 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 Prior to that, he worked for a [employer] company for 7 years. Extensive pulmonary findings on CT scan. Case discussed with Dr. Olson. Culture of blood showing gram positive cocci on multiple cultures with FISH testing showing Staph Aureus. Vancomycin level at 13.4. Acid-Fast Bacilli Sputum evaluations x 2 are negative. Objective - Vital Signs/Intake and Output Vital Signs (last 24 hours): Temp Pulse Resp BP Pulse Ox 99.4 F 85 36 H 119/44 L 98 06/21/16 12:00 06/21/16 18:10 06/21/16 18:10 06/21/16 18:00 06/21/16 18:10 Intake and Output: 06/21/16 06/21/16 06:59 18:59 Intake Total 2318.9 4671.1 Output Total 900 1000 Balance 1418.9 3671.1 - Medications Medications: Current Medications Acetaminophen (Tylenol 325mg Tab) 650 mg PO Q6H PRN PRN Reason: Fever >100.4 F Last Admin: 06/21/16 17:27 Dose: 650 mg Amlodipine Besylate (Norvasc) 10 mg PO DAILY [facility] Last Admin: 06/21/16 10:01 Dose: 10 mg Clonidine HCl (Catapres) 0.1 mg PO TID PRN PRN Reason: Systolic Blood Pressure Last Admin: 06/21/16 10:00 Dose: 0.1 mg Vancomycin HCl (Vancomycin 1gm) 1 gm in 250 mls @ 167 mls/hr IVPB Q12H [facility] PRN Reason: Protocol Last Admin: 06/21/16 11:46 Dose: 167 mls/hr Piperacillin Sod/Tazobactam Sod (Zosyn 3.375 In Ns 100ml) 100 mls @ 200 mls/hr IVPB Q6 [facility] PRN Reason: Protocol Last Admin: 06/21/16 17:07 Dose: 200 mls/hr Dextrose/Sodium Chloride (Dextrose 5%/0.9% Ns 1000 Ml) 1,000 mls @ 150 mls/hr IV .Q6H40M [facility] Last Admin: 06/21/16 17:03 Dose: 150 mls/hr Insulin Human Regular (Humulin R Low) 0 units SC ACHS [facility] PRN Reason: Protocol Last Admin: 06/21/16 17:06 Dose: 3 units Lisinopril (Zestril) 30 mg PO DAILY [facility] Last Admin: 06/21/16 09:59 Dose: 30 mg Metoclopramide HCl (Reglan) 10 mg IVP Q6H PRN PRN Reason: Nausea/Vomiting Pantoprazole Sodium (Protonix Inj) 40 mg IVP DAILY [facility] Last Admin: 06/21/16 09:59 Dose: 40 mg - Labs Labs: 06/21/16 04:20 06/21/16 16:15 PT 10.7 Seconds (9.9-11.8) 06/19/16 18:15 INR 0.99 (0.93-1.08) 06/19/16 18:15 APTT 30.8 Seconds (23.7-30.8) 06/19/16 18:15 - Constitutional Appears: Non-toxic, No Acute Distress, Chronically Ill - Head Exam Head Exam: ATRAUMATIC, NORMOCEPHALIC - Eye Exam Eye Exam: EOMI, PERRL Pupil Exam: NORMAL ACCOMODATION, PERRL - ENT Exam ENT Exam: Mucous Membranes Moist, Normal External Ear Exam, TM's Normal Bilaterally - Neck Exam Neck Exam: Full ROM, Normal Inspection - Respiratory Exam Respiratory Exam: Decreased Breath Sounds, Clear to Ausculation Bilateral, Rhonchi, NORMAL BREATHING PATTERN. absent: Rales, Wheezes - Cardiovascular Exam Cardiovascular Exam: REGULAR RHYTHM, RRR, +S1, +S2 - GI/Abdominal Exam GI & Abdominal Exam: Soft, Normal Bowel Sounds. absent: Distended, Tenderness - Extremities Exam Extremities Exam: Full ROM, Normal Inspection - Neurological Exam Neurological Exam: Alert, Awake, CN II-XII Intact, Oriented x3 - Psychiatric Exam Psychiatric exam: Normal Affect, Normal Mood - Skin Skin Exam: Intact, Normal Color Assessment and Plan - Assessment and Plan (Free Text) Assessment: 61 yo male presenting with Uncontrolled DM and DKA. Incidental finding of pneumonic picture with a possibility for TB. The patient is under isolation for TB. Risks for TB appear to be low. The patient for acid-fast testing of the sputum x 3. Cannot rule out ALISON, fungal, or severe bacterial infections such as Staph Aureus or Strep Pneumonia. He is being treated for his DKA. On Vancomycin and Zosyn. gram positive cocci in blood cultures. May need to consider Teflaro instead to get better concentrations in the lung for MRSA. Supportive care. AFB x 2 negative. Multiple blood cultures with gram positive cocci. FISH indicating Staph Aureus. On Vancomycin and Zosyn currently. Would obtain Quantiferon for reference point... a positive Quantiferon would not impact management of the case at this time. This test would only indicate patient exposure during his lifetime. Would obtain echocardiogram as well. Case discussed with Dr. Olson. Thank you for allowing me to participate in the care of this patient, we will follow with you.
[2016-06-21 20:52] LABS: ALB/GLOB RATIO 0.6 (1.1-1.8); ALKALINE PHOSPHATASE 55 U/L (38-133); ALT/SGPT 38 U/L (7-56); AST/SGOT 30 U/L (15-59); BILIRUBIN,TOTAL 0.8 mg/dL (0.2-1.3); BLOOD UREA NITROGEN 12 mg/dL (7-21); CALCIUM 7.5 mg/dL (8.4-10.5); CARBON DIOXIDE 18 mmol/L (21-33); CHLORIDE 112 mmol/L (98-107); GFR AFRICAN-AMERICAN > 60; GLUCOSE,RANDOM 204 mg/dL (70-110); POTASSIUM 3.5 mmol/L (3.6-5.0); SODIUM 137 mmol/L (132-148); TOTAL PROTEIN 6.1 g/dL (5.8-8.3)
[2016-06-22] MEDS: Vancomycin 1gm in NS 250ml 1 GM/250 ML BAG IVPB SCH (00:19)
[2016-06-22] MEDS: Piperacillin/Tazobact 3.375 gm 100 ML IVPB SCH ×5 (00:20→23:57)
[2016-06-22 02:17] LABS: ALB/GLOB RATIO 0.7 (1.1-1.8); ALKALINE PHOSPHATASE 68 U/L (38-133); ALT/SGPT 41 U/L (7-56); AST/SGOT 28 U/L (15-59); BILIRUBIN,TOTAL 0.9 mg/dL (0.2-1.3); BLOOD UREA NITROGEN 11 mg/dL (7-21); CALCIUM 7.7 mg/dL (8.4-10.5); CARBON DIOXIDE 20 mmol/L (21-33); CHLORIDE 111 mmol/L (95-110); GFR AFRICAN-AMERICAN > 60; GLUCOSE,RANDOM 181 mg/dL (70-110); POTASSIUM 3.7 mmol/L (3.6-5.0); SODIUM 140 mmol/L (132-148); TOTAL PROTEIN 6.4 g/dL (5.8-8.3)
[2016-06-22 06:36] LABS: ADD MANUAL DIFF? NO
[2016-06-22 06:45] LABS: BASO # 0.02 K/mm3 (0.0-2.0); BASO % 0.2 % (0.0-3.0); EOS % 0.1 % (1.5-5.0); GRAN # 8.47 (1.4-6.5); GRAN % 79.1 % (50.0-68.0); HEMATOCRIT 37.1 % (42.0-52.0); LYMPH # 1.2 (1.2-3.4); LYMPH % 11.3 % (22.0-35.0); MEAN CELL VOLUME 81.5 fL (80.0-105.0); MEAN CORPUSCULAR HEMOGLOBIN 27.3 pg (25.0-35.0); MEAN CORPUSCULAR HGB CONC 33.4 g/dl (31.0-37.0); MONO % 9.3 % (1.0-6.0); PLATELET COUNT 161 10^3/uL (120.0-450.0); RED CELL DISTRIBUTION WIDTH 14.5 % (11.5-14.5); WHITE BLOOD COUNT 10.7 10^3/ul (4.5-11.0)
[2016-06-22 07:22] LABS: ALB/GLOB RATIO 0.7 (1.1-1.8); ALKALINE PHOSPHATASE 91 U/L (38-133); ALT/SGPT 38 U/L (7-56); AST/SGOT 29 U/L (15-59); BLOOD UREA NITROGEN 10 mg/dL (7-21); CALCIUM 7.9 mg/dL (8.4-10.5); CARBON DIOXIDE 20 mmol/L (21-33); CHLORIDE 111 mmol/L (98-107); GFR AFRICAN-AMERICAN > 60; GLUCOSE,RANDOM 212 mg/dL (70-110); POTASSIUM 3.7 mmol/L (3.6-5.0); SODIUM 138 mmol/L (132-148); TOTAL PROTEIN 6.4 g/dL (5.8-8.3)
[2016-06-22] MEDS: Pantoprazole 40 mg EC Tab PO SCH (08:32)
[2016-06-22] MEDS: Insulin Reg-LOW-Coverage SC SCH ×2 (08:33→11:33)
[2016-06-22] MEDS ORDERED: Potassium Chloride 20 mEq ER Tab PO ONE (09:02)
--- NOTE | 2016-06-22 09:04 | PN ---
DATE: 06/21/2016 ROOM: 128, room 7 in CCU This is a 61-year-old male with recent uncontrolled type 2 insulin-requiring diabetes, presenting her e with diabetic ketoacidosis and dehydration with a right upper lobe infiltrate and hemoptysis and is also undergoing IV antibiotic management as given. His latest chemistries include a BUN of 13, sodium 142, potassium 4.2, chloride 112, CO2 20, glucose 196 and creatinine 1.1. He has been taken off the insulin drip at this time as noted. His glucose l evels have ranged from 190-215 and 217 mg/dL. He has been switched over now to a low-dose correction scale using regular insulin as ordered. We wi ll switch him over to a more physiologic basal and bolus insulin dose regimen with a combination of H umalog given for his mealtime and prandial insulin requirements and Levemir given at bedtime as indic ated. As he is transferred out of ICU, then we will switch him over to the aforementioned . Sherri Hurst MD cc: [id number] TT: 06/21/2016 12:52:31 Confirmation # [id number] Dictation # [id number]
[2016-06-22 10:14] LABS: ALB/GLOB RATIO 0.7 (1.1-1.8); ALKALINE PHOSPHATASE 81 U/L (38-133); ALT/SGPT 38 U/L (7-56); AST/SGOT 31 U/L (15-59); BILIRUBIN,TOTAL 1.1 mg/dL (0.2-1.3); BLOOD UREA NITROGEN 11 mg/dL (7-21); CALCIUM 8.1 mg/dL (8.4-10.5); CARBON DIOXIDE 20 mmol/L (21-33); CHLORIDE 108 mmol/L (98-107); GFR AFRICAN-AMERICAN > 60; POTASSIUM 3.8 mmol/L (3.6-5.0); SODIUM 136 mmol/L (132-148); TOTAL PROTEIN 6.7 g/dL (5.8-8.3)
[2016-06-22 10:25] LABS: GLUCOSE,RANDOM 310 mg/dL (70-110)
[2016-06-22] MEDS ORDERED: Insulin Detemir 100 units/ml Vial (Levemir) SC SCH ×2 (11:00→22:00)
--- NOTE | 2016-06-22 11:30 | CP.PCM.PN ---
<OnealAaron - Last Filed: 06/22/16 16:07> Subjective - Date & Time of Evaluation Date of Evaluation: 06/22/16 Time of Evaluation: 07:00 - Subjective Subjective: 61 year old man with history of HTN and NIDDM who presents with 2 days of generalized weakness, polydysia, polyuria, hemoptysis, cough with green-colored sputum, intermittent confusion and some mild SOB. 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 He still complains of generalized weakness, cough, back pain and had one episode of loose stools. Otherwise had no other complaints and denies chest pain, difficulty breathing, nausea, or vomiting. Objective - Vital Signs/Intake and Output Vital Signs (last 24 hours): Temp Pulse Resp BP Pulse Ox 98.7 F 89 31 H 151/53 H 99 06/22/16 08:00 06/22/16 11:05 06/22/16 08:10 06/22/16 11:05 06/22/16 08:30 Intake and Output: 06/22/16 06/22/16 06:59 18:59 Intake Total 850 Output Total 600 Balance 250 - Medications Medications: Current Medications Acetaminophen (Tylenol 325mg Tab) 650 mg PO Q6H PRN PRN Reason: Fever >100.4 F Last Admin: 06/21/16 17:27 Dose: 650 mg Amlodipine Besylate (Norvasc) 10 mg PO DAILY [facility] Last Admin: 06/22/16 11:03 Dose: 10 mg Clonidine HCl (Catapres) 0.1 mg PO TID PRN PRN Reason: Systolic Blood Pressure Last Admin: 06/21/16 10:00 Dose: 0.1 mg Piperacillin Sod/Tazobactam Sod (Zosyn 3.375 In Ns 100ml) 100 mls @ 200 mls/hr IVPB Q6 [facility] PRN Reason: Protocol Last Admin: 06/22/16 11:15 Dose: 200 mls/hr Vancomycin HCl 1.5 gm/ Sodium (Chloride) 250 mls @ 167 mls/hr IVPB Q12H [facility] PRN Reason: Protocol Stop: 06/23/16 11:45 Last Admin: 06/22/16 11:04 Dose: 167 mls/hr Insulin Detemir (Levemir) 10 unit SC BID [facility] Last Admin: 06/22/16 11:12 Dose: 10 unit Insulin Human Regular (Humulin R Low) 0 units SC ACHS [facility] PRN Reason: Protocol Last Admin: 06/22/16 08:33 Dose: 3 units Lisinopril (Zestril) 30 mg PO DAILY [facility] Last Admin: 06/22/16 11:05 Dose: 30 mg Metoclopramide HCl (Reglan) 10 mg IVP Q6H PRN PRN Reason: Nausea/Vomiting Pantoprazole Sodium (Protonix Ec Tab) 40 mg PO ACB [facility] Last Admin: 06/22/16 08:32 Dose: 40 mg - Labs Labs: 06/22/16 05:40 06/22/16 09:30 PT 10.7 Seconds (9.9-11.8) 06/19/16 18:15 INR 0.99 (0.93-1.08) 06/19/16 18:15 APTT 30.8 Seconds (23.7-30.8) 06/19/16 18:15 - Constitutional Appears: Non-toxic, No Acute Distress - Head Exam Head Exam: ATRAUMATIC, NORMOCEPHALIC - Eye Exam Eye Exam: EOMI - ENT Exam ENT Exam: Mucous Membranes Moist - Respiratory Exam Respiratory Exam: Rhonchi, NORMAL BREATHING PATTERN - Cardiovascular Exam Cardiovascular Exam: REGULAR RHYTHM, RRR, +S1, +S2. absent: JVD - GI/Abdominal Exam GI & Abdominal Exam: Soft, Tenderness, Normal Bowel Sounds - Extremities Exam Extremities Exam: absent: Joint Swelling, Pedal Edema - Back Exam Back Exam: tenderness. absent: rash noted - Neurological Exam Neurological Exam: Alert, Awake, Oriented x3 - Psychiatric Exam Psychiatric exam: Flat Affect, Normal Mood - Skin Skin Exam: Dry, Intact, Normal Color, Warm Assessment and Plan - Assessment and Plan (Free Text) Assessment: The patient is a 61 year old man with history of HTN and NIDDM who is being admitted to the ICU for DKA, hemoptysis and sepsis due to a right- sided PNA. Plan: 1. Diabetic Ketoacidosis (without coma): -due to medication non-compliance -symptoms of generalized weakness likely due to DKA -HgA1c 16.9 -will follow ICU recs -NPO except meds while on Insulin drip, currently being weaned off drip -Endo consult - Cam -change to ISS -Levemir to be given, and sliding scale started until patient starts eating meals regularly . Pre meal insulin can be added at that point. -aggressive IVF's initially with NS@200cc/hr -no need for supplemental potassium at this time since initial K=5.5 -once fingerstick <ld=498, change IVF's to D51/2NS@150cc/hr -check serial BMP's, VBG's, Mag and Phos Q4hrs x 6 2. Sepsis (due to pneumonia): -empiric IV antibiotics -aggressive IVF's -check procalcitonin 20.42 -lactic acid trending down -check HIV non-reactive -ID consult Dr. Hankins - will follow ID recs -pneumonic picture with a possibility for TB. Risks for TB appear to be low. The patient for acid-fast testing of the sputum x 3 -On Vancomycin and Zosyn. gram positive cocci in blood cultures. -ECHO- please see full report -LV normal size and function -mild concentric LV hypertrophy 2. Right-sided Pneumonia: -will treat empirically with IV Vanco and Zosyn -blood cultures - gram positive cocci -urine cultures - pending -procalcitonin 20 high -lactic acid 3.5 high -TB will be ruled out with three sputum AFB samples -AFB negative x2 -airborne precautions while TB is being ruled out -monitor serial ABG's -Chest CT shows mutifocal PNA w/ Tree/ bed changes. Unclear if the tree/bud changes were present snf and not the new infiltrates are superimposed. 3. Acute Hemoptysis: -ddx: TB vs malignancy -will rule out TB with three sets of sputum AFB samples -avoid anticoagulation -given infiltrates on CXR, absence of respiratory distress and a normal O2 sat, suspicion for acute PE is low -however, if pt's symptoms deteriorate despite IV antibiotics, will then consider a CT-PA 4. Acute Kidney Injury: -likely pre-renal etiology due to intravascular depletion -serum Cr expected to correct after aggressive IVF's -Cr dropped to 1.1 -renally dose all meds until serum Cr corrects 5. Poorly Controlled Hypertension: -due to medication non-compliance -Lisinopril 30mg po daily -Norvasc 10mg po daily -Clonidine 0.1mg po TID PRN SBP>165 DVT PPx: Heparin SQ tid GI PPx: Protonix <Rangasamy,Ajantha - Last Filed: 06/24/16 16:27> Objective - Vital Signs/Intake and Output Vital Signs (last 24 hours): Temp Pulse Resp BP Pulse Ox 98.1 F 76 18 129/73 97 06/24/16 08:00 06/24/16 10:16 06/24/16 08:00 06/24/16 10:16 06/24/16 08:00 Intake and Output: 06/24/16 06/24/16 06:59 18:59 Intake Total 1260 860 Output Total 2500 800 Balance -1240 60 - Medications Medications: Current Medications Acetaminophen (Tylenol 325mg Tab) 650 mg PO Q6H PRN PRN Reason: Fever >100.4 F Last Admin: 06/24/16 00:15 Dose: 650 mg Albuterol/Ipratropium (Duoneb 3 Mg/0.5 Mg (3 Ml) Ud) 3 ml IH Q2H PRN PRN Reason: Shortness of Breath Last Admin: 06/23/16 23:50 Dose: 3 ml Albuterol/Ipratropium (Duoneb 3 Mg/0.5 Mg (3 Ml) Ud) 3 ml IH [id number] [facility] Last Admin: 06/24/16 13:35 Dose: 3 ml Amlodipine Besylate (Norvasc) 10 mg PO DAILY [facility] Last Admin: 06/24/16 10:16 Dose: 10 mg Clonidine HCl (Catapres) 0.1 mg PO TID PRN PRN Reason: Systolic Blood Pressure Last Admin: 06/24/16 00:15 Dose: 0.1 mg Guaifenesin (Robitussin) 100 mg PO Q4H PRN PRN Reason: Cough Last Admin: 06/23/16 10:35 Dose: 100 mg Heparin Sodium (Porcine) (Heparin) 5,000 units SC Q12 [facility] PRN Reason: Protocol Last Admin: 06/24/16 10:18 Dose: 5,000 units Nafcillin Sodium 2 gm/ (Dextrose) 100 mls @ 100 mls/hr IVPB Q6 [facility] PRN Reason: Protocol Last Admin: 06/24/16 13:00 Dose: 100 mls/hr Vancomycin HCl 1.5 gm/ Sodium (Chloride) 500 mls @ 167 mls/hr IVPB Q12 [facility] PRN Reason: Protocol Last Admin: 06/24/16 10:19 Dose: 167 mls/hr Insulin Detemir (Levemir) 24 unit SC HS [facility] Insulin Human Lispro (Humalog Low) 0 units SC ACHS [facility] PRN Reason: Protocol Last Admin: 06/24/16 11:31 Dose: Not Given Insulin Human Lispro (Humalog) 14 units SC AC [facility] Lisinopril (Zestril) 30 mg PO DAILY [facility] Last Admin: 06/24/16 10:16 Dose: 30 mg Pantoprazole Sodium (Protonix Ec Tab) 40 mg PO ACB [facility] Last Admin: 06/24/16 08:32 Dose: 40 mg - Labs Labs: 06/24/16 07:00 06/24/16 07:00 PT 10.7 Seconds (9.9-11.8) 06/19/16 18:15 INR 0.99 (0.93-1.08) 06/19/16 18:15 APTT 30.8 Seconds (23.7-30.8) 06/19/16 18:15 Attending/Attestation - Attestation I have personally seen and examined this patient.: Yes I have fully participated in the care of the patient.: Yes I have reviewed all pertinent clinical information, including history, physical exam and plan: Yes Notes (Text): 06/24/16 16:27 attending note; Patient seen and examined with resident. This is a 61 year old man with history of HTN and NIDDM who presented with generalized weakness, polydysia, polyuria, hemoptysis, cough with greenish/ brown colored sputum, intermittent confusion and found to have DKA, hemoptysis and sepsis due to a multifocal pneumoni. patient was also found to have MSSA bacteremia. CT chest showed multifocal pneumonia with tree in bud pattern. AFB x 3 is negative. continue vancomycin and Zosyn. Follow up with ID . echo showed no vegetations. Currently patient is on Levemir. Follow up with endocrinology . Diabetic nurse educator evaluation requested. Dietary education given. the diagnosis and follow-up plan discussed with patient and patient's in detail.
[2016-06-22 12:40] LABS: ALB/GLOB RATIO 0.7 (1.1-1.8); ALKALINE PHOSPHATASE 95 U/L (38-133); ALT/SGPT 40 U/L (7-56); AST/SGOT 30 U/L (15-59); BILIRUBIN,TOTAL 0.9 mg/dL (0.2-1.3); BLOOD UREA NITROGEN 11 mg/dL (7-21); CALCIUM 8.2 mg/dL (8.4-10.5); CARBON DIOXIDE 19 mmol/L (21-33); CHLORIDE 108 mmol/L (98-107); GFR AFRICAN-AMERICAN > 60; POTASSIUM 3.8 mmol/L (3.6-5.0); SODIUM 135 mmol/L (132-148); TOTAL PROTEIN 6.8 g/dL (5.8-8.3)
[2016-06-22 12:50] LABS: GLUCOSE,RANDOM 310 mg/dL (70-110)
[2016-06-22 12:53] LABS: FREE T4 0.95 ng/dL (0.78-2.19)
[2016-06-22 13:07] LABS: THYROID STIMULATING HORMONE 0.23 mIU/mL (0.46-4.68)
--- NOTE | 2016-06-22 14:24 | CP.CCUPN ---
<Anahi Schmid - Last Filed: 06/22/16 14:57> CCU Subjective - Physician Review Events Since Last Encounter (Free Text): 06/22/16 14:21 Pt s/e at bedside this AM. Patient had a fever for 101.2 last night that was reduced with tylenol. Afebrile this AM. Patient reports persistent cought with thick brown mucus production that is lightening in color. Denies any hemoptysis overnight. Denies chest pain, nausea, vomiting, abdominal pain but complains of polyuria without dysuria, and BL lower back pain. Glucose of 310 this AM CCU Objective - Vital Signs / Intake & Output Vital Signs (Last 4 hours): Vital Signs Pulse BP 06/22/16 11:05 89 151/53 H 06/22/16 11:03 151/53 H Intake and Output (Last 8hrs): Intake & Output 06/21/16 06/22/16 06/22/16 22:59 06:59 14:59 Intake Total 3300 850 Output Total 1000 600 Balance 2300 250 Intake: IV 1800 450 Right Hand 1800 450 Oral 1500 400 Output: Urine 1000 600 Condom 1000 600 Stool 0 Other: Voiding Method Incontinent - Physical Exam Head: Positive for: Atraumatic, Normocephalic Pupils: Positive for: PERRL Extroacular Muscles: Positive for: EOMI Conjunctiva: Positive for: Normal Mouth: Positive for: Moist Mucous Membranes Pharnyx: Positive for: Normal. Negative for: ERYTHEMA, EXUDATE Nose (External): Positive for: Atraumatic Neck: Positive for: Normal Range of Motion Respiratory/Chest: Positive for: Decreased Breath Sounds (BL), Rhonchi. Negative for: Respiratory Distress, Accessory Muscle Use Cardiovascular: Positive for: Regular Rate and Rhythm, Normal S1, S2. Negative for: Murmurs Abdomen: Positive for: Normal Bowel Sounds. Negative for: Tenderness, Distention, Peritoneal Signs, Rebound Back: Positive for: Paraspinal Tenderness (lumbar spine). Negative for: CVA Tenderness, Midline Tenderness Upper Extremity: Positive for: Normal Inspection, Neurovascularly Intact, Capillary Refill < 2s. Negative for: Edema Lower Extremity: Positive for: Normal Inspection, NORMAL PULSES, Capillary Refill < 2 s. Negative for: Edema Neurological: Positive for: GCS=15, CN II-XII Intact, Speech Normal, Motor Func Grossly Intact Skin: Positive for: Warm, Dry, Normal Color Psychiatric: Positive for: Alert, Oriented x 3, Normal Insight, Normal Concentration - Medications Active Medications: Active Medications Generic Name Dose Route Start Last Admin Trade Name Freq PRN Reason Stop Dose Admin Acetaminophen 650 mg 06/19/16 19:56 06/21/16 17:27 Tylenol 325mg Tab PO 650 mg Q6H PRN Administration Fever >100.4 F Amlodipine Besylate 10 mg 06/20/16 10:00 06/22/16 11:03 Norvasc PO 10 mg DAILY LYN Administration Clonidine HCl 0.1 mg 06/20/16 02:14 06/21/16 10:00 Catapres PO 0.1 mg TID PRN Administration Systolic Blood Pressure Piperacillin Sod/Tazobactam Sod 100 mls @ 200 mls/hr 06/20/16 18:00 06/22/16 11:15 Zosyn 3.375 In Ns 100ml IVPB 200 mls/hr Q6 LYN Administration Protocol Vancomycin HCl 1.5 gm/ Sodium 250 mls @ 167 mls/hr 06/22/16 10:15 06/22/16 11 :04 Chloride IVPB 06/23/16 11:45 167 mls/hr Q12H LYN Administration Protocol Insulin Detemir 24 unit 06/22/16 22:00 Levemir SC HS LYN Insulin Human Lispro 12 units 06/22/16 16:30 Humalog SC AC LYN Insulin Human Lispro 0 units 06/22/16 16:30 Humalog Low SC ACHS [facility] Protocol Lisinopril 30 mg 06/20/16 10:00 06/22/16 11:05 Zestril PO 30 mg DAILY LYN Administration Metoclopramide HCl 10 mg 06/19/16 19:56 Reglan IVP Q6H PRN Nausea/Vomiting Pantoprazole Sodium 40 mg 06/22/16 07:30 06/22/16 08:32 Protonix Ec Tab PO 40 mg ACB LYN Administration - Patient Studies Lab Studies: Microbiology Studies 06/20/16 14:00 Blood Culture - Final Blood Staphylococcus Aureus Gram Stain - Final 06/20/16 13:30 Blood Culture - Final Blood Staphylococcus Aureus Gram Stain - Final 06/20/16 08:06 Urine Culture - Final Urine,Clean Catch Yeast Species 06/21/16 10:30 Gram Stain - Final Sputum Sputum Culture - Preliminary Gram Positive Cocci 06/19/16 23:23 Mycobacterial Culture - Preliminary Other: Please Indicate 06/20/16 12:39 Mycobacterial Culture - Preliminary Other: Please Indicate Lab Studies 06/22/16 06/22/16 06/22/16 Range/Units 12:20 12:20 09:30 WBC (4.5-11.0) 10^3/ul RBC (3.5-6.1) 10^6/uL Hgb (14.0-18.0) gm/dL Hct (42.0-52.0) % MCV (80.0-105.0) fL MCH (25.0-35.0) pg MCHC (31.0-37.0) g/dl RDW (11.5-14.5) % Plt Count (120.0-450.0) 10^3/uL Gran % (50.0-68.0) % Lymph % (Auto) (22.0-35.0) % Wilson % (Auto) (1.0-6.0) % Eos % (Auto) (1.5-5.0) % Baso % (Auto) (0.0-3.0) % Gran # (1.4-6.5) Lymph # (1.2-3.4) Wilson # (0.1-0.6) Eos # (0.0-0.7) Baso # (0.0-2.0) K/mm3 Sodium 135 136 (132-148) mmol/L Potassium 3.8 3.8 (3.6-5.0) mmol/L Chloride 108 H 108 H (98-107) mmol/L Carbon Dioxide 19 L 20 L (21-33) mmol/L Anion Gap 12 12 (10-20) BUN 11 11 (7-21) mg/dL Creatinine 1.0 1.0 (0.5-1.4) mg/dL Est GFR ( Amer) > 60 > 60 Est GFR (Non-Af Amer) > 60 > 60 POC Glucose (mg/dL) (65-110) mg/dL Random Glucose 310 H* 310 H* D (70-110) mg/dL Hemoglobin A1c (4.2-6.5) % Calcium 8.2 L 8.1 L (8.4-10.5) mg/dL Total Bilirubin 0.9 1.1 (0.2-1.3) mg/dL AST 30 31 (15-59) U/L ALT 40 38 (7-56) U/L Alkaline Phosphatase 95 81 (38-133) U/L Total Protein 6.8 6.7 (5.8-8.3) g/dL Albumin 2.7 L 2.8 L (3.0-4.8) g/dL Globulin 4.1 3.9 gm/dL Albumin/Globulin Ratio 0.7 L 0.7 L (1.1-1.8) Free T4 0.95 (0.78-2.19) ng/dL TSH 3rd Generation 0.23 L (0.46-4.68) mIU/mL 06/22/16 06/22/16 06/22/16 Range/Units 05:40 05:40 01:30 WBC 10.7 D (4.5-11.0) 10^3/ul RBC 4.55 (3.5-6.1) 10^6/uL Hgb 12.4 L (14.0-18.0) gm/dL Hct 37.1 L (42.0-52.0) % MCV 81.5 (80.0-105.0) fL MCH 27.3 (25.0-35.0) pg MCHC 33.4 (31.0-37.0) g/dl RDW 14.5 (11.5-14.5) % Plt Count 161 (120.0-450.0) 10^3/uL Gran % 79.1 H (50.0-68.0) % Lymph % (Auto) 11.3 L (22.0-35.0) % Wilson % (Auto) 9.3 H (1.0-6.0) % Eos % (Auto) 0.1 L (1.5-5.0) % Baso % (Auto) 0.2 (0.0-3.0) % Gran # 8.47 H (1.4-6.5) Lymph # 1.2 (1.2-3.4) Wilson # 1.0 H (0.1-0.6) Eos # 0.0 (0.0-0.7) Baso # 0.02 (0.0-2.0) K/mm3 Sodium 138 140 (132-148) mmol/L Potassium 3.7 3.7 (3.6-5.0) mmol/L Chloride 111 H 111 H (98-107) mmol/L Carbon Dioxide 20 L 20 L (21-33) mmol/L Anion Gap 11 13 (10-20) BUN 10 11 (7-21) mg/dL Creatinine 1.0 1.0 (0.5-1.4) mg/dL Est GFR ( Amer) > 60 > 60 Est GFR (Non-Af Amer) > 60 > 60 POC Glucose (mg/dL) (65-110) mg/dL Random Glucose 212 H 181 H (70-110) mg/dL Hemoglobin A1c (4.2-6.5) % Calcium 7.9 L 7.7 L (8.4-10.5) mg/dL Total Bilirubin 1.0 0.9 (0.2-1.3) mg/dL AST 29 28 (15-59) U/L ALT 38 41 (7-56) U/L Alkaline Phosphatase 91 68 (38-133) U/L Total Protein 6.4 6.4 (5.8-8.3) g/dL Albumin 2.6 L 2.5 L (3.0-4.8) g/dL Globulin 3.9 3.8 gm/dL Albumin/Globulin Ratio 0.7 L 0.7 L (1.1-1.8) Free T4 (0.78-2.19) ng/dL TSH 3rd Generation (0.46-4.68) mIU/mL 06/21/16 06/21/16 06/21/16 Range/Units 21:38 20:20 16:15 WBC (4.5-11.0) 10^3/ul RBC (3.5-6.1) 10^6/uL Hgb (14.0-18.0) gm/dL Hct (42.0-52.0) % MCV (80.0-105.0) fL MCH (25.0-35.0) pg MCHC (31.0-37.0) g/dl RDW (11.5-14.5) % Plt Count (120.0-450.0) 10^3/uL Gran % (50.0-68.0) % Lymph % (Auto) (22.0-35.0) % Wilson % (Auto) (1.0-6.0) % Eos % (Auto) (1.5-5.0) % Baso % (Auto) (0.0-3.0) % Gran # (1.4-6.5) Lymph # (1.2-3.4) Wilson # (0.1-0.6) Eos # (0.0-0.7) Baso # (0.0-2.0) K/mm3 Sodium 137 139 (132-148) mmol/L Potassium 3.5 L 3.8 (3.6-5.0) mmol/L Chloride 112 H 111 H (98-107) mmol/L Carbon Dioxide 18 L 18 L (21-33) mmol/L Anion Gap 11 14 (10-20) BUN 12 13 (7-21) mg/dL Creatinine 1.1 1.1 (0.5-1.4) mg/dL Est GFR ( Amer) > 60 > 60 Est GFR (Non-Af Amer) > 60 > 60 POC Glucose (mg/dL) 211 H (65-110) mg/dL Random Glucose 204 H 230 H (70-110) mg/dL Hemoglobin A1c (4.2-6.5) % Calcium 7.5 L 7.7 L (8.4-10.5) mg/dL Total Bilirubin 0.8 0.8 (0.2-1.3) mg/dL AST 30 26 (15-59) U/L ALT 38 33 (7-56) U/L Alkaline Phosphatase 55 55 (38-133) U/L Total Protein 6.1 6.2 (5.8-8.3) g/dL Albumin 2.4 L 2.5 L (3.0-4.8) g/dL Globulin 3.7 3.7 gm/dL Albumin/Globulin Ratio 0.6 L 0.7 L (1.1-1.8) Free T4 (0.78-2.19) ng/dL TSH 3rd Generation (0.46-4.68) mIU/mL 06/21/16 06/20/16 Range/Units 15:33 07:00 WBC (4.5-11.0) 10^3/ul RBC (3.5-6.1) 10^6/uL Hgb (14.0-18.0) gm/dL Hct (42.0-52.0) % MCV (80.0-105.0) fL MCH (25.0-35.0) pg MCHC (31.0-37.0) g/dl RDW (11.5-14.5) % Plt Count (120.0-450.0) 10^3/uL Gran % (50.0-68.0) % Lymph % (Auto) (22.0-35.0) % Wilson % (Auto) (1.0-6.0) % Eos % (Auto) (1.5-5.0) % Baso % (Auto) (0.0-3.0) % Gran # (1.4-6.5) Lymph # (1.2-3.4) Wilson # (0.1-0.6) Eos # (0.0-0.7) Baso # (0.0-2.0) K/mm3 Sodium (132-148) mmol/L Potassium (3.6-5.0) mmol/L Chloride (98-107) mmol/L Carbon Dioxide (21-33) mmol/L Anion Gap (10-20) BUN (7-21) mg/dL Creatinine (0.5-1.4) mg/dL Est GFR ( Amer) Est GFR (Non-Af Amer) POC Glucose (mg/dL) 298 H (65-110) mg/dL Random Glucose (70-110) mg/dL Hemoglobin A1c 16.9 H (4.2-6.5) % Calcium (8.4-10.5) mg/dL Total Bilirubin (0.2-1.3) mg/dL AST (15-59) U/L ALT (7-56) U/L Alkaline Phosphatase (38-133) U/L Total Protein (5.8-8.3) g/dL Albumin (3.0-4.8) g/dL Globulin gm/dL Albumin/Globulin Ratio (1.1-1.8) Free T4 (0.78-2.19) ng/dL TSH 3rd Generation (0.46-4.68) mIU/mL Laboratory Results - last 24 hr 05/13/17 05/14/17 05/14/17 07:00 15:33 16:15 WBC RBC Hgb Hct MCV MCH MCHC RDW Plt Count Gran % Lymph % (Auto) Wilson % (Auto) Eos % (Auto) Baso % (Auto) Gran # Lymph # Wilson # Eos # Baso # Sodium 139 Potassium 3.8 Chloride 111 H Carbon Dioxide 18 L Anion Gap 14 BUN 13 Creatinine 1.1 Est GFR ( Amer) > 60 Est GFR (Non-Af Amer) > 60 POC Glucose (mg/dL) 298 H Random Glucose 230 H Hemoglobin A1c 16.9 H Calcium 7.7 L Total Bilirubin 0.8 AST 26 ALT 33 Alkaline Phosphatase 55 Total Protein 6.2 Albumin 2.5 L Globulin 3.7 Albumin/Globulin Ratio 0.7 L Free T4 TSH 3rd Generation 06/21/16 06/21/16 06/22/16 20:20 21:38 01:30 WBC RBC Hgb Hct MCV MCH MCHC RDW Plt Count Gran % Lymph % (Auto) Wilson % (Auto) Eos % (Auto) Baso % (Auto) Gran # Lymph # Wilson # Eos # Baso # Sodium 137 140 Potassium 3.5 L 3.7 Chloride 112 H 111 H Carbon Dioxide 18 L 20 L Anion Gap 11 13 BUN 12 11 Creatinine 1.1 1.0 Est GFR ( Amer) > 60 > 60 Est GFR (Non-Af Amer) > 60 > 60 POC Glucose (mg/dL) 211 H Random Glucose 204 H 181 H Hemoglobin A1c Calcium 7.5 L 7.7 L Total Bilirubin 0.8 0.9 AST 30 28 ALT 38 41 Alkaline Phosphatase 55 68 Total Protein 6.1 6.4 Albumin 2.4 L 2.5 L Globulin 3.7 3.8 Albumin/Globulin Ratio 0.6 L 0.7 L Free T4 TSH 3rd Generation 06/22/16 06/22/16 06/22/16 05:40 05:40 09:30 WBC 10.7 D RBC 4.55 Hgb 12.4 L Hct 37.1 L MCV 81.5 MCH 27.3 MCHC 33.4 RDW 14.5 Plt Count 161 Gran % 79.1 H Lymph % (Auto) 11.3 L Wilson % (Auto) 9.3 H Eos % (Auto) 0.1 L Baso % (Auto) 0.2 Gran # 8.47 H Lymph # 1.2 Wilson # 1.0 H Eos # 0.0 Baso # 0.02 Sodium 138 136 Potassium 3.7 3.8 Chloride 111 H 108 H Carbon Dioxide 20 L 20 L Anion Gap 11 12 BUN 10 11 Creatinine 1.0 1.0 Est GFR ( Amer) > 60 > 60 Est GFR (Non-Af Amer) > 60 > 60 POC Glucose (mg/dL) Random Glucose 212 H 310 H* D Hemoglobin A1c Calcium 7.9 L 8.1 L Total Bilirubin 1.0 1.1 AST 29 31 ALT 38 38 Alkaline Phosphatase 91 81 Total Protein 6.4 6.7 Albumin 2.6 L 2.8 L Globulin 3.9 3.9 Albumin/Globulin Ratio 0.7 L 0.7 L Free T4 TSH 3rd Generation 06/22/16 06/22/16 12:20 12:20 WBC RBC Hgb Hct MCV MCH MCHC RDW Plt Count Gran % Lymph % (Auto) Wilson % (Auto) Eos % (Auto) Baso % (Auto) Gran # Lymph # Wilson # Eos # Baso # Sodium 135 Potassium 3.8 Chloride 108 H Carbon Dioxide 19 L Anion Gap 12 BUN 11 Creatinine 1.0 Est GFR ( Amer) > 60 Est GFR (Non-Af Amer) > 60 POC Glucose (mg/dL) Random Glucose 310 H* Hemoglobin A1c Calcium 8.2 L Total Bilirubin 0.9 AST 30 ALT 40 Alkaline Phosphatase 95 Total Protein 6.8 Albumin 2.7 L Globulin 4.1 Albumin/Globulin Ratio 0.7 L Free T4 0.95 TSH 3rd Generation 0.23 L Fingerstick Blood Sugar Results: 318 Review of Systems - Review of Systems All systems: reviewed and no additional remarkable complaints except (as per HPI ) - EENT Eyes: absent: Change in Vision - Cardiovascular Cardiovascular: absent: Chest Pain, Chest Pain at Rest, Dyspnea - Respiratory Respiratory: Cough. absent: Dyspnea, Hemoptysis - Gastrointestinal Gastrointestinal: As Per HPI - Genitourinary Genitourinary: Urinary Frequency. absent: Dysuria, Hematuria, Pyuria - Musculoskeletal Musculoskeletal: As Par HPI. absent: Numbness, Tingling - Integumentary Integumentary: absent: Skin Pain, Sores, Wounds - Neurological Neurological: UNREMARKABLE. absent: Numbness, Vertigo - Endocrine Endocrine: Polyuria Critical Care Progress Note - Nutrition Nutrition: Nutrition Category Date Time Status Diabetic [Consistent Carbohydrate] [DIET] Diets 06/21/16 Lunch Ordered Assessment/Plan - Assessment and Plan (Free Text) Assessment: 61M with PMH of NIDDM with medication untreated for 7months, HTN, and former 20pack year smoking history quit 20 years ago with DKA and dyspnea/hemoptysis with CAP vs. TB Neuro: AA&OX3, no complaints PERRL, CNII-XII intact Continue to monitor Cardio: No complaints, normocardic, currently normotensive RRR, S1/S2, no murmurs Continue to monitor vitals Continue Norvasc, Lisinopril, and clonidine PRN for hypertension Pulm: Improving productive cough, no recent hemoptysis vitals stable, no hypoxia on NC CT: multifocal pneumonia AFB: negativex2, Blood: Gram+ cocci in clusters, Sputum: gram+ cocci, Mycobact culture pending Continue to monitor vitals repeat afb and blood cultures Continue abx per ID F/U cultures GI: No complaints abdominal exam benign Advance to Carb controlled diet Continue to monitor Endo: hyperglycemia--310 this AM, anion gap resolved Start levemir 10BID, ISS low Continue to monitor blood glucose Follow up Endocrinology recs ID: fever overnight past two nights Currently afebrile, normocardic CT: multifocal pneumonia AFB: negativex2, Blood: Gram+ cocci in clusters, Sputum: gram+ cocci, Mycobact culture pending Vanc trough: low Continue to monitor vitals repeat afb and blood cultures Continue abx per ID--increase vancomycin to 1.5g BID F/U cultures PPX: protonix, SCD's Patient seen and discussed at length with Dr. Whitney Schmid, PGY1 <Whitney MICHAELS,Jesika H - Last Filed: 06/22/16 15:08> CCU Objective - Vital Signs / Intake & Output Vital Signs (Last 4 hours): Vital Signs Pulse BP 06/22/16 11:05 89 151/53 H Intake and Output (Last 8hrs): Intake & Output 06/22/16 06/22/16 06/22/16 06:59 14:59 22:59 Intake Total 850 Output Total 600 Balance 250 Intake: IV 450 Right Hand 450 Oral 400 Output: Urine 600 Condom 600 - Medications Active Medications: Active Medications Generic Name Dose Route Start Last Admin Trade Name Freq PRN Reason Stop Dose Admin Acetaminophen 650 mg 06/19/16 19:56 06/21/16 17:27 Tylenol 325mg Tab PO 650 mg Q6H PRN Administration Fever >100.4 F Amlodipine Besylate 10 mg 06/20/16 10:00 06/22/16 11:03 Norvasc PO 10 mg DAILY LYN Administration Clonidine HCl 0.1 mg 06/20/16 02:14 06/21/16 10:00 Catapres PO 0.1 mg TID PRN Administration Systolic Blood Pressure Heparin Sodium (Porcine) 5,000 units 06/22/16 22:00 Heparin SC Q12 LYN Protocol Piperacillin Sod/Tazobactam Sod 100 mls @ 200 mls/hr 06/20/16 18:00 06/22/16 11:15 Zosyn 3.375 In Ns 100ml IVPB 200 mls/hr Q6 LYN Administration Protocol Vancomycin HCl 1.5 gm/ Sodium 250 mls @ 167 mls/hr 06/22/16 10:15 06/22/16 11 :04 Chloride IVPB 06/23/16 11:45 167 mls/hr Q12H LYN Administration Protocol Insulin Detemir 24 unit 06/22/16 22:00 Levemir SC HS LYN Insulin Human Lispro 12 units 06/22/16 16:30 Humalog SC AC LYN Insulin Human Lispro 0 units 06/22/16 16:30 Humalog Low SC ACHS LYN Protocol Lisinopril 30 mg 06/20/16 10:00 06/22/16 11:05 Zestril PO 30 mg DAILY LYN Administration Metoclopramide HCl 10 mg 06/19/16 19:56 Reglan IVP Q6H PRN Nausea/Vomiting Pantoprazole Sodium 40 mg 06/22/16 07:30 06/22/16 08:32 Protonix Ec Tab PO 40 mg ACB LYN Administration - Patient Studies Lab Studies: Microbiology Studies 06/21/16 07:00 Mycobacterial Culture - Preliminary Other: Please Indicate 06/20/16 14:00 Blood Culture - Final Blood Staphylococcus Aureus Gram Stain - Final 06/20/16 13:30 Blood Culture - Final Blood Staphylococcus Aureus Gram Stain - Final 06/20/16 08:06 Urine Culture - Final Urine,Clean Catch Yeast Species 05/14/17 10:30 Gram Stain - Final Sputum Sputum Culture - Preliminary Gram Positive Cocci 06/19/16 23:23 Mycobacterial Culture - Preliminary Other: Please Indicate 06/20/16 12:39 Mycobacterial Culture - Preliminary Other: Please Indicate Lab Studies 06/22/16 06/22/16 06/22/16 Range/Units 12:20 12:20 09:30 WBC (4.5-11.0) 10^3/ul RBC (3.5-6.1) 10^6/uL Hgb (14.0-18.0) gm/dL Hct (42.0-52.0) % MCV (80.0-105.0) fL MCH (25.0-35.0) pg MCHC (31.0-37.0) g/dl RDW (11.5-14.5) % Plt Count (120.0-450.0) 10^3/uL Gran % (50.0-68.0) % Lymph % (Auto) (22.0-35.0) % Wilson % (Auto) (1.0-6.0) % Eos % (Auto) (1.5-5.0) % Baso % (Auto) (0.0-3.0) % Gran # (1.4-6.5) Lymph # (1.2-3.4) Wilson # (0.1-0.6) Eos # (0.0-0.7) Baso # (0.0-2.0) K/mm3 Corrected WBC (Man) Neutrophils % (Manual) Band Neutrophils % Lymphocytes % (Manual) Atypical Lymphs % Monocytes % (Manual) Eosinophils % (Manual) Basophils % (Manual) Metamyelocytes % Myelocytes % Promyelocytes % Nucleated RBC % Hypersegmented Polys Immature Lymphocytes Blast Cells Smudge Cells Toxic Granulation Dohle Bodies Jessenia Rods Platelet Evaluation Plt Clumps, EDTA Large Platelets Giant Platelets Polychromasia Hypochromasia Hyperchromasia Poikilocytosis (manual Basophilic Stippling Anisocytosis (manual) Microcytosis (manual) Macrocytosis (manual) Spherocytes Sickle Cells Target Cells Tear Drop Cells Ovalocytes Stomatocytes Helmet Cells [place] Rings Cartwright Cells Acanthocytes (Spur) Rouleaux Sodium 135 136 (132-148) mmol/L Potassium 3.8 3.8 (3.6-5.0) mmol/L Chloride 108 H 108 H (98-107) mmol/L Carbon Dioxide 19 L 20 L (21-33) mmol/L Anion Gap 12 12 (10-20) BUN 11 11 (7-21) mg/dL Creatinine 1.0 1.0 (0.5-1.4) mg/dL Est GFR ( Amer) > 60 > 60 Est GFR (Non-Af Amer) > 60 > 60 POC Glucose (mg/dL) (65-110) mg/dL Random Glucose 310 H* 310 H* D (70-110) mg/dL Hemoglobin A1c (4.2-6.5) % Calcium 8.2 L 8.1 L (8.4-10.5) mg/dL Total Bilirubin 0.9 1.1 (0.2-1.3) mg/dL AST 30 31 (15-59) U/L ALT 40 38 (7-56) U/L Alkaline Phosphatase 95 81 (38-133) U/L Total Protein 6.8 6.7 (5.8-8.3) g/dL Albumin 2.7 L 2.8 L (3.0-4.8) g/dL Globulin 4.1 3.9 gm/dL Albumin/Globulin Ratio 0.7 L 0.7 L (1.1-1.8) Free T4 0.95 (0.78-2.19) ng/dL TSH 3rd Generation 0.23 L (0.46-4.68) mIU/mL 06/22/16 06/22/16 06/22/16 Range/Units 05:40 05:40 01:30 WBC 10.7 D (4.5-11.0) 10^3/ul RBC 4.55 (3.5-6.1) 10^6/uL Hgb 12.4 L (14.0-18.0) gm/dL Hct 37.1 L (42.0-52.0) % MCV 81.5 (80.0-105.0) fL MCH 27.3 (25.0-35.0) pg MCHC 33.4 (31.0-37.0) g/dl RDW 14.5 (11.5-14.5) % Plt Count 161 (120.0-450.0) 10^3/uL Gran % 79.1 H (50.0-68.0) % Lymph % (Auto) 11.3 L (22.0-35.0) % Wilson % (Auto) 9.3 H (1.0-6.0) % Eos % (Auto) 0.1 L (1.5-5.0) % Baso % (Auto) 0.2 (0.0-3.0) % Gran # 8.47 H (1.4-6.5) Lymph # 1.2 (1.2-3.4) Wilson # 1.0 H (0.1-0.6) Eos # 0.0 (0.0-0.7) Baso # 0.02 (0.0-2.0) K/mm3 Corrected WBC (Man) Neutrophils % (Manual) Band Neutrophils % Lymphocytes % (Manual) Atypical Lymphs % Monocytes % (Manual) Eosinophils % (Manual) Basophils % (Manual) Metamyelocytes % Myelocytes % Promyelocytes % Nucleated RBC % Hypersegmented Polys Immature Lymphocytes Blast Cells Smudge Cells Toxic Granulation Dohle Bodies Jessenia Rods Platelet Evaluation Plt Clumps, EDTA Large Platelets Giant Platelets Polychromasia Hypochromasia Hyperchromasia Poikilocytosis (manual Basophilic Stippling Anisocytosis (manual) Microcytosis (manual) Macrocytosis (manual) Spherocytes Sickle Cells Target Cells Tear Drop Cells Ovalocytes Stomatocytes Helmet Cells [place] Rings [place]on Cells Acanthocytes (Spur) Rouleaux Sodium 138 140 (132-148) mmol/L Potassium 3.7 3.7 (3.6-5.0) mmol/L Chloride 111 H 111 H (98-107) mmol/L Carbon Dioxide 20 L 20 L (21-33) mmol/L Anion Gap 11 13 (10-20) BUN 10 11 (7-21) mg/dL Creatinine 1.0 1.0 (0.5-1.4) mg/dL Est GFR ( Amer) > 60 > 60 Est GFR (Non-Af Amer) > 60 > 60 POC Glucose (mg/dL) (65-110) mg/dL Random Glucose 212 H 181 H (70-110) mg/dL Hemoglobin A1c (4.2-6.5) % Calcium 7.9 L 7.7 L (8.4-10.5) mg/dL Total Bilirubin 1.0 0.9 (0.2-1.3) mg/dL AST 29 28 (15-59) U/L ALT 38 41 (7-56) U/L Alkaline Phosphatase 91 68 (38-133) U/L Total Protein 6.4 6.4 (5.8-8.3) g/dL Albumin 2.6 L 2.5 L (3.0-4.8) g/dL Globulin 3.9 3.8 gm/dL Albumin/Globulin Ratio 0.7 L 0.7 L (1.1-1.8) Free T4 (0.78-2.19) ng/dL TSH 3rd Generation (0.46-4.68) mIU/mL 06/21/16 06/21/16 06/21/16 Range/Units 21:38 20:20 16:15 WBC (4.5-11.0) 10^3/ul RBC (3.5-6.1) 10^6/uL Hgb (14.0-18.0) gm/dL Hct (42.0-52.0) % MCV (80.0-105.0) fL MCH (25.0-35.0) pg MCHC (31.0-37.0) g/dl RDW (11.5-14.5) % Plt Count (120.0-450.0) 10^3/uL Gran % (50.0-68.0) % Lymph % (Auto) (22.0-35.0) % Wilson % (Auto) (1.0-6.0) % Eos % (Auto) (1.5-5.0) % Baso % (Auto) (0.0-3.0) % Gran # (1.4-6.5) Lymph # (1.2-3.4) Wilson # (0.1-0.6) Eos # (0.0-0.7) Baso # (0.0-2.0) K/mm3 Corrected WBC (Man) Neutrophils % (Manual) Band Neutrophils % Lymphocytes % (Manual) Atypical Lymphs % Monocytes % (Manual) Eosinophils % (Manual) Basophils % (Manual) Metamyelocytes % Myelocytes % Promyelocytes % Nucleated RBC % Hypersegmented Polys Immature Lymphocytes Blast Cells Smudge Cells Toxic Granulation Dohle Bodies Jessenia Rods Platelet Evaluation Plt Clumps, EDTA Large Platelets Giant Platelets Polychromasia Hypochromasia Hyperchromasia Poikilocytosis (manual Basophilic Stippling Anisocytosis (manual) Microcytosis (manual) Macrocytosis (manual) Spherocytes Sickle Cells Target Cells Tear Drop Cells Ovalocytes Stomatocytes Helmet Cells [place] Rings Cartwright Cells Acanthocytes (Spur) Rouleaux Sodium 137 139 (132-148) mmol/L Potassium 3.5 L 3.8 (3.6-5.0) mmol/L Chloride 112 H 111 H (98-107) mmol/L Carbon Dioxide 18 L 18 L (21-33) mmol/L Anion Gap 11 14 (10-20) BUN 12 13 (7-21) mg/dL Creatinine 1.1 1.1 (0.5-1.4) mg/dL Est GFR ( Amer) > 60 > 60 Est GFR (Non-Af Amer) > 60 > 60 POC Glucose (mg/dL) 211 H (65-110) mg/dL Random Glucose 204 H 230 H (70-110) mg/dL Hemoglobin A1c (4.2-6.5) % Calcium 7.5 L 7.7 L (8.4-10.5) mg/dL Total Bilirubin 0.8 0.8 (0.2-1.3) mg/dL AST 30 26 (15-59) U/L ALT 38 33 (7-56) U/L Alkaline Phosphatase 55 55 (38-133) U/L Total Protein 6.1 6.2 (5.8-8.3) g/dL Albumin 2.4 L 2.5 L (3.0-4.8) g/dL Globulin 3.7 3.7 gm/dL Albumin/Globulin Ratio 0.6 L 0.7 L (1.1-1.8) Free T4 (0.78-2.19) ng/dL TSH 3rd Generation (0.46-4.68) mIU/mL 06/21/16 06/20/16 06/20/16 Range/Units 15:33 07:00 04:00 WBC (4.5-11.0) 10^3/ul RBC (3.5-6.1) 10^6/uL Hgb (14.0-18.0) gm/dL Hct (42.0-52.0) % MCV (80.0-105.0) fL MCH (25.0-35.0) pg MCHC (31.0-37.0) g/dl RDW (11.5-14.5) % Plt Count (120.0-450.0) 10^3/uL Gran % (50.0-68.0) % Lymph % (Auto) (22.0-35.0) % Wilson % (Auto) (1.0-6.0) % Eos % (Auto) (1.5-5.0) % Baso % (Auto) (0.0-3.0) % Gran # (1.4-6.5) Lymph # (1.2-3.4) Wilson # (0.1-0.6) Eos # (0.0-0.7) Baso # (0.0-2.0) K/mm3 Corrected WBC (Man) Cancelled Neutrophils % (Manual) Cancelled Band Neutrophils % Cancelled Lymphocytes % (Manual) Cancelled Atypical Lymphs % Cancelled Monocytes % (Manual) Cancelled Eosinophils % (Manual) Cancelled Basophils % (Manual) Cancelled Metamyelocytes % Cancelled Myelocytes % Cancelled Promyelocytes % Cancelled Nucleated RBC % Cancelled Hypersegmented Polys Cancelled Immature Lymphocytes Cancelled Blast Cells Cancelled Smudge Cells Cancelled Toxic Granulation Cancelled Dohle Bodies Cancelled Jessenia Rods Cancelled Platelet Evaluation Cancelled Plt Clumps, EDTA Cancelled Large Platelets Cancelled Giant Platelets Cancelled Polychromasia Cancelled Hypochromasia Cancelled Hyperchromasia Cancelled Poikilocytosis (manual Cancelled Basophilic Stippling Cancelled Anisocytosis (manual) Cancelled Microcytosis (manual) Cancelled Macrocytosis (manual) Cancelled Spherocytes Cancelled Sickle Cells Cancelled Target Cells Cancelled Tear Drop Cells Cancelled Ovalocytes Cancelled Stomatocytes Cancelled Helmet Cells Cancelled [place] Rings Cancelled Cartwright Cells Cancelled Acanthocytes (Spur) Cancelled Rouleaux Cancelled Sodium (132-148) mmol/L Potassium (3.6-5.0) mmol/L Chloride (98-107) mmol/L Carbon Dioxide (21-33) mmol/L Anion Gap (10-20) BUN (7-21) mg/dL Creatinine (0.5-1.4) mg/dL Est GFR ( Amer) Est GFR (Non-Af Amer) POC Glucose (mg/dL) 298 H (65-110) mg/dL Random Glucose (70-110) mg/dL Hemoglobin A1c 16.9 H (4.2-6.5) % Calcium (8.4-10.5) mg/dL Total Bilirubin (0.2-1.3) mg/dL AST (15-59) U/L ALT (7-56) U/L Alkaline Phosphatase (38-133) U/L Total Protein (5.8-8.3) g/dL Albumin (3.0-4.8) g/dL Globulin gm/dL Albumin/Globulin Ratio (1.1-1.8) Free T4 (0.78-2.19) ng/dL TSH 3rd Generation (0.46-4.68) mIU/mL Laboratory Results - last 24 hr 06/20/16 06/20/16 06/21/16 04:00 07:00 15:33 WBC RBC Hgb Hct MCV MCH MCHC RDW Plt Count Gran % Lymph % (Auto) Wilson % (Auto) Eos % (Auto) Baso % (Auto) Gran # Lymph # Wilson # Eos # Baso # Corrected WBC (Man) Cancelled Neutrophils % (Manual) Cancelled Band Neutrophils % Cancelled Lymphocytes % (Manual) Cancelled Atypical Lymphs % Cancelled Monocytes % (Manual) Cancelled Eosinophils % (Manual) Cancelled Basophils % (Manual) Cancelled Metamyelocytes % Cancelled Myelocytes % Cancelled Promyelocytes % Cancelled Nucleated RBC % Cancelled Hypersegmented Polys Cancelled Immature Lymphocytes Cancelled Blast Cells Cancelled Smudge Cells Cancelled Toxic Granulation Cancelled Dohle Bodies Cancelled Jessenia Rods Cancelled Platelet Evaluation Cancelled Plt Clumps, EDTA Cancelled Large Platelets Cancelled Giant Platelets Cancelled Polychromasia Cancelled Hypochromasia Cancelled Hyperchromasia Cancelled Poikilocytosis (manual Cancelled Basophilic Stippling Cancelled Anisocytosis (manual) Cancelled Microcytosis (manual) Cancelled Macrocytosis (manual) Cancelled Spherocytes Cancelled Sickle Cells Cancelled Target Cells Cancelled Tear Drop Cells Cancelled Ovalocytes Cancelled Stomatocytes Cancelled Helmet Cells Cancelled Madison Rings Cancelled Cartwright Cells Cancelled Acanthocytes (Spur) Cancelled Rouleaux Cancelled Sodium Potassium Chloride Carbon Dioxide Anion Gap BUN Creatinine Est GFR ( Amer) Est GFR (Non-Af Amer) POC Glucose (mg/dL) 298 H Random Glucose Hemoglobin A1c 16.9 H Calcium Total Bilirubin AST ALT Alkaline Phosphatase Total Protein Albumin Globulin Albumin/Globulin Ratio Free T4 TSH 3rd Generation 06/21/16 06/21/16 06/21/16 16:15 20:20 21:38 WBC RBC Hgb Hct MCV MCH MCHC RDW Plt Count Gran % Lymph % (Auto) Wilson % (Auto) Eos % (Auto) Baso % (Auto) Gran # Lymph # Wilson # Eos # Baso # Corrected WBC (Man) Neutrophils % (Manual) Band Neutrophils % Lymphocytes % (Manual) Atypical Lymphs % Monocytes % (Manual) Eosinophils % (Manual) Basophils % (Manual) Metamyelocytes % Myelocytes % Promyelocytes % Nucleated RBC % Hypersegmented Polys Immature Lymphocytes Blast Cells Smudge Cells Toxic Granulation Dohle Bodies Jessenia Rods Platelet Evaluation Plt Clumps, EDTA Large Platelets Giant Platelets Polychromasia Hypochromasia Hyperchromasia Poikilocytosis (manual Basophilic Stippling Anisocytosis (manual) Microcytosis (manual) Macrocytosis (manual) Spherocytes Sickle Cells Target Cells Tear Drop Cells Ovalocytes Stomatocytes Helmet Cells Madison Rings Davon Cells Acanthocytes (Spur) Rouleaux Sodium 139 137 Potassium 3.8 3.5 L Chloride 111 H 112 H Carbon Dioxide 18 L 18 L Anion Gap 14 11 BUN 13 12 Creatinine 1.1 1.1 Est GFR ( Amer) > 60 > 60 Est GFR (Non-Af Amer) > 60 > 60 POC Glucose (mg/dL) 211 H Random Glucose 230 H 204 H Hemoglobin A1c Calcium 7.7 L 7.5 L Total Bilirubin 0.8 0.8 AST 26 30 ALT 33 38 Alkaline Phosphatase 55 55 Total Protein 6.2 6.1 Albumin 2.5 L 2.4 L Globulin 3.7 3.7 Albumin/Globulin Ratio 0.7 L 0.6 L Free T4 TSH 3rd Generation 06/22/16 06/22/16 06/22/16 01:30 05:40 05:40 WBC 10.7 D RBC 4.55 Hgb 12.4 L Hct 37.1 L MCV 81.5 MCH 27.3 MCHC 33.4 RDW 14.5 Plt Count 161 Gran % 79.1 H Lymph % (Auto) 11.3 L Wilson % (Auto) 9.3 H Eos % (Auto) 0.1 L Baso % (Auto) 0.2 Gran # 8.47 H Lymph # 1.2 Wilson # 1.0 H Eos # 0.0 Baso # 0.02 Corrected WBC (Man) Neutrophils % (Manual) Band Neutrophils % Lymphocytes % (Manual) Atypical Lymphs % Monocytes % (Manual) Eosinophils % (Manual) Basophils % (Manual) Metamyelocytes % Myelocytes % Promyelocytes % Nucleated RBC % Hypersegmented Polys Immature Lymphocytes Blast Cells Smudge Cells Toxic Granulation Dohle Bodies Jessenia Rods Platelet Evaluation Plt Clumps, EDTA Large Platelets Giant Platelets Polychromasia Hypochromasia Hyperchromasia Poikilocytosis (manual Basophilic Stippling Anisocytosis (manual) Microcytosis (manual) Macrocytosis (manual) Spherocytes Sickle Cells Target Cells Tear Drop Cells Ovalocytes Stomatocytes Helmet Cells Madison Rings Cartwright Cells Acanthocytes (Spur) Rouleaux Sodium 140 138 Potassium 3.7 3.7 Chloride 111 H 111 H Carbon Dioxide 20 L 20 L Anion Gap 13 11 BUN 11 10 Creatinine 1.0 1.0 Est GFR ( Amer) > 60 > 60 Est GFR (Non-Af Amer) > 60 > 60 POC Glucose (mg/dL) Random Glucose 181 H 212 H Hemoglobin A1c Calcium 7.7 L 7.9 L Total Bilirubin 0.9 1.0 AST 28 29 ALT 41 38 Alkaline Phosphatase 68 91 Total Protein 6.4 6.4 Albumin 2.5 L 2.6 L Globulin 3.8 3.9 Albumin/Globulin Ratio 0.7 L 0.7 L Free T4 TSH 3rd Generation 06/22/16 06/22/16 06/22/16 09:30 12:20 12:20 WBC RBC Hgb Hct MCV MCH MCHC RDW Plt Count Gran % Lymph % (Auto) Wilson % (Auto) Eos % (Auto) Baso % (Auto) Gran # Lymph # Wilson # Eos # Baso # Corrected WBC (Man) Neutrophils % (Manual) Band Neutrophils % Lymphocytes % (Manual) Atypical Lymphs % Monocytes % (Manual) Eosinophils % (Manual) Basophils % (Manual) Metamyelocytes % Myelocytes % Promyelocytes % Nucleated RBC % Hypersegmented Polys Immature Lymphocytes Blast Cells Smudge Cells Toxic Granulation Dohle Bodies Jessenia Rods Platelet Evaluation Plt Clumps, EDTA Large Platelets Giant Platelets Polychromasia Hypochromasia Hyperchromasia Poikilocytosis (manual Basophilic Stippling Anisocytosis (manual) Microcytosis (manual) Macrocytosis (manual) Spherocytes Sickle Cells Target Cells Tear Drop Cells Ovalocytes Stomatocytes Helmet Cells Madison Rings Cartwright Cells Acanthocytes (Spur) Rouleaux Sodium 136 135 Potassium 3.8 3.8 Chloride 108 H 108 H Carbon Dioxide 20 L 19 L Anion Gap 12 12 BUN 11 11 Creatinine 1.0 1.0 Est GFR ( Amer) > 60 > 60 Est GFR (Non-Af Amer) > 60 > 60 POC Glucose (mg/dL) Random Glucose 310 H* D 310 H* Hemoglobin A1c Calcium 8.1 L 8.2 L Total Bilirubin 1.1 0.9 AST 31 30 ALT 38 40 Alkaline Phosphatase 81 95 Total Protein 6.7 6.8 Albumin 2.8 L 2.7 L Globulin 3.9 4.1 Albumin/Globulin Ratio 0.7 L 0.7 L Free T4 0.95 TSH 3rd Generation 0.23 L Critical Care Progress Note - Nutrition Nutrition: Nutrition Category Date Time Status Diabetic [Consistent Carbohydrate] [DIET] Diets 06/21/16 Lunch Ordered Attending/Attestation - Attestation I have personally seen and examined this patient.: Yes I have fully participated in the care of the patient.: Yes I have reviewed all pertinent clinical information: Yes Notes (Text): 06/22/16 15:04 61 y/o M presented with DKA / SOB/ Multifocal PNA PNA CT chest shows Multifocal PNA with concern for peripheral infiltrates concerning for possible septic emboli. On Empiric abx treatment for MSSA/ MRSA w/ Vancomycin, Dose increased to keep troph 15-20. CT chest seen to have tree/ bud findings , no further hemoptysis noted. ON TB neg pressure room. AFB x2 negative, 3rd pending. TB CX pending. Blood cx + MSSA likely . ECHO done, no vegetations noted per cardiology Blood cx repeated daily to watch for clearance. ID following. DKA/DM oN levemir and Insulin Sliding scale . Keep bs 14-180. HGA1c Elevated. Endocrine following. dvt P SCD/ heparin sq. No further Hemoptysis noted. cc time 65 min
[2016-06-22 16:37] LABS: ALB/GLOB RATIO 0.7 (1.1-1.8); ALKALINE PHOSPHATASE 104 U/L (38-133); ALT/SGPT 40 U/L (7-56); AST/SGOT 33 U/L (15-59); BILIRUBIN,TOTAL 0.9 mg/dL (0.2-1.3); BLOOD UREA NITROGEN 12 mg/dL (7-21); CALCIUM 8.2 mg/dL (8.4-10.5); CARBON DIOXIDE 22 mmol/L (21-33); CHLORIDE 105 mmol/L (98-107); GFR AFRICAN-AMERICAN > 60; POTASSIUM 3.8 mmol/L (3.6-5.0); SODIUM 137 mmol/L (132-148); TOTAL PROTEIN 6.8 g/dL (5.8-8.3)
[2016-06-22 16:41] LABS: GLUCOSE,RANDOM 320 mg/dL (70-110)
[2016-06-22] MEDS: Insulin Lispro 1 UNITS/0.01 ML SC SCH (18:04)
[2016-06-22] MEDS: Insulin Lispro (humaLOG) LOW Coverage SC SCH ×2 (18:07→22:15)
--- NOTE | 2016-06-22 19:03 | PN ---
DATE: 06/22/2016 ROOM: CCU 128, room 7. This is a 61-year-old male with recent uncontrolled type 2 insulin-requiring diabetes, presenting her e with diabetic ketoacidosis and dehydration with a concomitant right upper lobe pneumonia and is now being followed closely for metabolic management. His glycemic levels are fluctuating with marked hy perglycemic accelerations noted overnight and today with glucose levels ranging from 280 to 318 mg/dL . Her latest chemistries include a BUN of 12, sodium 137, potassium 3.8, chloride 105, CO2 of 22, gl ucose 320 and creatinine 1.0. So, at this time, we will modify his current coverage scale and basal insulin as he clearly needs also prandial or mealtime insulin to optimize his metabolic control. The basal insulin will only cover the overnight glucose elevations from underlying hepatic gluconeogenes is. So we will switch him over to a more physiologic insulin drug combination with basal insulin giv en as Levemir at the higher dose of 24 units subQ at bedtime daily to start tonight. We will add Hum alog given as a fixed dose of 12 units subQ t.i.d. before meals to start at dinnertime today as order ed. We will modify the coverage scale to a very low dose algorithm using Humalog insulin to start to day also as ordered. We will titrate incrementally as indicated to optimize metabolic control. We w ill reinforce diabetic education and dietary instructions at the time of this admission. We will fol low and advise accordingly. Sherri Hurst MD cc: [id number] TT: 06/22/2016 19:02:58 Confirmation # [id number] Dictation # [id number] jn
--- NOTE | 2016-06-22 19:15 | CP.PCM.PN ---
Subjective - Date & Time of Evaluation Date of Evaluation: 06/22/16 Time of Evaluation: 18:00 - Subjective Subjective: Infectious Disease Follow Up: June 22, 2016 61 yo male with presentation of 2 days of generalized weakness, polydysia, polyuria, hemoptysis, cough with green-colored sputum, intermittent confusion and some mild SOB. On CT scan, tree in bud formations seen. Patient placed under respiratory isolation for TB workup. The patient has no recent travel history. 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 Extensive pulmonary findings on CT scan. Case discussed with Dr. Olson. Culture of blood showing gram positive cocci on multiple cultures with FISH testing showing Staph Aureus. Vancomycin level at 13.4. Acid-Fast Bacilli Sputum evaluations x 3 are negative. Multiple cultures with MSSA growth. Patient feeling better overall. Objective - Vital Signs/Intake and Output Vital Signs (last 24 hours): Temp Pulse Resp BP Pulse Ox 98.7 F 92 H 16 165/68 H 100 06/22/16 08:00 06/22/16 18:50 06/22/16 18:50 06/22/16 18:30 06/22/16 18:50 - Medications Medications: Current Medications Acetaminophen (Tylenol 325mg Tab) 650 mg PO Q6H PRN PRN Reason: Fever >100.4 F Last Admin: 06/21/16 17:27 Dose: 650 mg Amlodipine Besylate (Norvasc) 10 mg PO DAILY LYN Last Admin: 06/22/16 11:03 Dose: 10 mg Clonidine HCl (Catapres) 0.1 mg PO TID PRN PRN Reason: Systolic Blood Pressure Last Admin: 06/21/16 10:00 Dose: 0.1 mg Heparin Sodium (Porcine) (Heparin) 5,000 units SC Q12 LYN PRN Reason: Protocol Piperacillin Sod/Tazobactam Sod (Zosyn 3.375 In Ns 100ml) 100 mls @ 200 mls/hr IVPB Q6 LYN PRN Reason: Protocol Last Admin: 06/22/16 18:09 Dose: 200 mls/hr Vancomycin HCl 1.5 gm/ Sodium (Chloride) 250 mls @ 167 mls/hr IVPB Q12H LYN PRN Reason: Protocol Stop: 06/23/16 11:45 Last Admin: 06/22/16 11:04 Dose: 167 mls/hr Insulin Detemir (Levemir) 24 unit SC HS LYN Insulin Human Lispro (Humalog) 12 units SC AC LYN Last Admin: 06/22/16 18:04 Dose: 12 units Insulin Human Lispro (Humalog Low) 0 units SC ACHS LYN PRN Reason: Protocol Last Admin: 06/22/16 18:07 Dose: Not Given Lisinopril (Zestril) 30 mg PO DAILY [facility] Last Admin: 06/22/16 11:05 Dose: 30 mg Metoclopramide HCl (Reglan) 10 mg IVP Q6H PRN PRN Reason: Nausea/Vomiting Pantoprazole Sodium (Protonix Ec Tab) 40 mg PO ACB [facility] Last Admin: 06/22/16 08:32 Dose: 40 mg - Labs Labs: 06/22/16 05:40 06/22/16 16:10 PT 10.7 Seconds (9.9-11.8) 06/19/16 18:15 INR 0.99 (0.93-1.08) 06/19/16 18:15 APTT 30.8 Seconds (23.7-30.8) 06/19/16 18:15 - Constitutional Appears: Non-toxic, No Acute Distress, Chronically Ill - Head Exam Head Exam: ATRAUMATIC, NORMOCEPHALIC - Eye Exam Eye Exam: EOMI, PERRL Pupil Exam: NORMAL ACCOMODATION, PERRL - ENT Exam ENT Exam: Mucous Membranes Moist, Normal External Ear Exam, TM's Normal Bilaterally - Neck Exam Neck Exam: Full ROM, Normal Inspection - Respiratory Exam Respiratory Exam: Decreased Breath Sounds, Rhonchi, NORMAL BREATHING PATTERN. absent: Rales, Wheezes - Cardiovascular Exam Cardiovascular Exam: REGULAR RHYTHM, RRR, +S1, +S2 - GI/Abdominal Exam GI & Abdominal Exam: Soft, Normal Bowel Sounds. absent: Distended, Tenderness - Extremities Exam Extremities Exam: Full ROM, Normal Inspection - Neurological Exam Neurological Exam: Alert, Awake, CN II-XII Intact, Oriented x3 - Psychiatric Exam Psychiatric exam: Normal Affect, Normal Mood - Skin Skin Exam: Intact, Normal Color Assessment and Plan - Assessment and Plan (Free Text) Assessment: 61 yo male presenting with Uncontrolled DM and DKA. Incidental finding of pneumonic picture with a possibility for TB. The patient is under isolation for TB. Risks for TB appear to be low. The patient for acid-fast testing of the sputum x 3. Cannot rule out ALISON, fungal, or severe bacterial infections such as Staph Aureus or Strep Pneumonia. He is being treated for his DKA. On Vancomycin and Zosyn. gram positive cocci in blood cultures. May need to consider Teflaro instead to get better concentrations in the lung for MRSA. Supportive care. AFB x 3 negative. Multiple blood cultures with gram positive cocci. FISH indicating Staph Aureus. On Vancomycin and Zosyn currently. Would obtain Quantiferon for reference point... a positive Quantiferon would not impact management of the case at this time. This test would only indicate patient exposure during his lifetime. Would obtain echocardiogram as well. MSSA in multiple cultures. TTE does not show vegetations. The patient appears to be improving. Case discussed with Dr. Olson. Thank you for allowing me to participate in the care of this patient, we will follow with you.
[2016-06-22] MEDS: Vancomycin 1.5 GM in Sodium Chloride 0.9% 500 ML IVPB SCH (22:45)
[2016-06-23] MEDS: Piperacillin/Tazobact 3.375 gm 100 ML IVPB SCH ×2 (05:41→12:36)
[2016-06-23 07:05] LABS: ADD MANUAL DIFF? NO
[2016-06-23 07:20] LABS: BASO # 0.03 K/mm3 (0.0-2.0); BASO % 0.3 % (0.0-3.0); EOS % 0.1 % (1.5-5.0); GRAN # 6.62 (1.4-6.5); GRAN % 68.3 % (50.0-68.0); HEMATOCRIT 36.8 % (42.0-52.0); LYMPH # 1.8 (1.2-3.4); LYMPH % 18.2 % (22.0-35.0); MEAN CELL VOLUME 82.1 fL (80.0-105.0); MEAN CORPUSCULAR HEMOGLOBIN 27.5 pg (25.0-35.0); MEAN CORPUSCULAR HGB CONC 33.4 g/dl (31.0-37.0); MONO # 1.3 (0.1-0.6); MONO % 13.1 % (1.0-6.0); PLATELET COUNT 190 10^3/uL (120.0-450.0); RED CELL DISTRIBUTION WIDTH 14.6 % (11.5-14.5); WHITE BLOOD COUNT 9.7 10^3/ul (4.5-11.0)
[2016-06-23 07:41] LABS: ALB/GLOB RATIO 0.7 (1.1-1.8); ALKALINE PHOSPHATASE 95 U/L (38-133); ALT/SGPT 38 U/L (7-56); AST/SGOT 30 U/L (15-59); BILIRUBIN,TOTAL 0.8 mg/dL (0.2-1.3); BLOOD UREA NITROGEN 10 mg/dL (7-21); CALCIUM 8.7 mg/dL (8.4-10.5); CARBON DIOXIDE 25 mmol/L (21-33); CHLORIDE 108 mmol/L (98-107); GFR AFRICAN-AMERICAN > 60; GLUCOSE,RANDOM 84 mg/dL (70-110); POTASSIUM 3.5 mmol/L (3.6-5.0); SODIUM 142 mmol/L (132-148)
[2016-06-23] MEDS: Insulin Lispro 1 UNITS/0.01 ML SC SCH ×3 (08:21→16:50)
[2016-06-23] MEDS: Insulin Lispro (humaLOG) LOW Coverage SC SCH ×4 (08:22→22:47)
[2016-06-23 08:44] LABS: MAGNESIUM 2.3 mg/dL (1.7-2.2); PHOSPHOROUS 2.9 mg/dL (2.5-4.5)
[2016-06-23] MEDS: Pantoprazole 40 mg EC Tab PO SCH (08:53)
[2016-06-23] MEDS ORDERED: Potassium Chloride 20 mEq ER Tab PO ONE (09:02)
--- NOTE | 2016-06-23 09:18 | CP.PCM.PN ---
<Aaron Oneal - Last Filed: 06/23/16 17:07> Subjective - Date & Time of Evaluation Date of Evaluation: 06/23/16 Time of Evaluation: 07:30 - Subjective Subjective: 61 year old man with history of HTN and NIDDM who presented with 2 days of generalized weakness, polydysia, polyuria, hemoptysis, cough with green-colored sputum, intermittent confusion and some mild SOB. Today, he is coughing up dark yellow colored sputum. He still complains of generalized weakness, cough, back pain. Otherwise had no other complaints and denies chest pain, difficulty breathing, nausea, vomiting. Objective - Vital Signs/Intake and Output Vital Signs (last 24 hours): Temp Pulse Resp BP Pulse Ox 99.4 F 70 35 H 155/74 H 100 06/23/16 04:00 06/23/16 06:00 06/23/16 06:00 06/23/16 06:00 06/23/16 06:00 Intake and Output: 06/23/16 06/23/16 06:59 18:59 Intake Total 1150 Output Total 1000 Balance 150 - Medications Medications: Current Medications Acetaminophen (Tylenol 325mg Tab) 650 mg PO Q6H PRN PRN Reason: Fever >100.4 F Last Admin: 06/21/16 17:27 Dose: 650 mg Amlodipine Besylate (Norvasc) 10 mg PO DAILY [facility] Last Admin: 06/22/16 11:03 Dose: 10 mg Clonidine HCl (Catapres) 0.1 mg PO TID PRN PRN Reason: Systolic Blood Pressure Last Admin: 06/21/16 10:00 Dose: 0.1 mg Heparin Sodium (Porcine) (Heparin) 5,000 units SC Q12 LYN PRN Reason: Protocol Last Admin: 06/22/16 22:15 Dose: 5,000 units Piperacillin Sod/Tazobactam Sod (Zosyn 3.375 In Ns 100ml) 100 mls @ 200 mls/hr IVPB Q6 LYN PRN Reason: Protocol Last Admin: 06/23/16 05:41 Dose: 200 mls/hr Vancomycin HCl 1.5 gm/ Sodium (Chloride) 500 mls @ 167 mls/hr IVPB Q12H LYN PRN Reason: Protocol Stop: 06/23/16 11:45 Last Admin: 06/22/16 22:45 Dose: 167 mls/hr Insulin Detemir (Levemir) 24 unit SC HS [facility] Last Admin: 06/22/16 22:18 Dose: 24 unit Insulin Human Lispro (Humalog) 12 units SC AC [facility] Last Admin: 06/23/16 08:21 Dose: Not Given Insulin Human Lispro (Humalog Low) 0 units SC ACHS [facility] PRN Reason: Protocol Last Admin: 06/23/16 08:22 Dose: Not Given Lisinopril (Zestril) 30 mg PO DAILY [facility] Last Admin: 06/22/16 11:05 Dose: 30 mg Metoclopramide HCl (Reglan) 10 mg IVP Q6H PRN PRN Reason: Nausea/Vomiting Pantoprazole Sodium (Protonix Ec Tab) 40 mg PO ACB [facility] Last Admin: 06/23/16 08:53 Dose: 40 mg - Labs Labs: 06/23/16 06:30 06/23/16 06:30 PT 10.7 Seconds (9.9-11.8) 06/19/16 18:15 INR 0.99 (0.93-1.08) 06/19/16 18:15 APTT 30.8 Seconds (23.7-30.8) 06/19/16 18:15 - Constitutional Appears: Non-toxic, No Acute Distress - Head Exam Head Exam: ATRAUMATIC, NORMOCEPHALIC - Eye Exam Eye Exam: EOMI - ENT Exam ENT Exam: Mucous Membranes Moist - Respiratory Exam Respiratory Exam: Rhonchi, NORMAL BREATHING PATTERN - Cardiovascular Exam Cardiovascular Exam: REGULAR RHYTHM, RRR, +S1, +S2. absent: JVD - GI/Abdominal Exam GI & Abdominal Exam: Soft, Tenderness, Normal Bowel Sounds - Extremities Exam Extremities Exam: absent: Joint Swelling, Pedal Edema - Back Exam Back Exam: tenderness. absent: rash noted - Neurological Exam Neurological Exam: Alert, Awake, Oriented x3 - Psychiatric Exam Psychiatric exam: Flat Affect, Normal Mood - Skin Skin Exam: Dry, Intact, Normal Color, Warm Assessment and Plan - Assessment and Plan (Free Text) Assessment: The patient is a 61 year old man with history of HTN and NIDDM who is being admitted to the ICU for DKA, hemoptysis and sepsis 2/2 PNA. Plan: 1. Diabetic Ketoacidosis (without coma): -due to medication non-compliance -symptoms of generalized weakness likely due to DKA -HgA1c 16.9 -will follow ICU recs -NPO except meds while on Insulin drip, currently being weaned off drip -Endo consult - Dr. Hurst -change to ISS -Levemir to be given, and sliding scale started until patient starts eating meals regularly . Pre meal insulin can be added at that point. -aggressive IVF's initially with NS@200cc/hr -no need for supplemental potassium at this time since initial K=5.5 -once fingerstick <ko=330, change IVF's to D51/2NS@150cc/hr -check serial BMP's, VBG's, Mag and Phos Q4hrs x 6 2. Sepsis (due to pneumonia): -empiric IV antibiotics -aggressive IVF's -check procalcitonin 20.42 -lactic acid trending down -HIV non-reactive -ID consult Dr. Hankins - will follow ID recs -pneumonic picture with a possibility for TB. Risks for TB appear to be low. The patient for acid-fast testing of the sputum x 3 -On Vancomycin and Zosyn -MSSA per cultures 06/19, 06/21 -Cultures from 06/22 show no growth to after 24hr -ECHO- please see full report -LV normal size and function -mild concentric LV hypertrophy -no report of vegetations 2. Pneumonia: -will treat empirically with IV Vanco and Zosyn -blood cultures - gram positive cocci -urine cultures - pending -procalcitonin 20 high -lactic acid 3.5 high -TB will be ruled out with three sputum AFB samples -AFB negative x3 -airborne precautions while TB is being ruled out -monitor serial ABG's -Chest CT shows mutifocal PNA w/ Tree/ bed changes. 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 3. Acute Hemoptysis: resolved -ddx: TB vs malignancy -will rule out TB with three sets of sputum AFB samples -avoid anticoagulation -given infiltrates on CXR, absence of respiratory distress and a normal O2 sat, suspicion for acute PE is low -however, if pt's symptoms deteriorate despite IV antibiotics, will then consider a CT-PA 4. Acute Kidney Injury: resolved -likely pre-renal etiology due to intravascular depletion -serum Cr expected to correct after aggressive IVF's -Cr dropped to 1.1 -renally dose all meds until serum Cr corrects 5. Poorly Controlled Hypertension: -due to medication non-compliance -Norvasc 10mg po daily -Clonidine 0.1mg po TID PRN SBP>165 DVT PPx: Heparin SQ tid GI PPx: Protonix <Rangasamy,Ajantha - Last Filed: 06/24/16 16:15> Objective - Vital Signs/Intake and Output Vital Signs (last 24 hours): Temp Pulse Resp BP Pulse Ox 98.1 F 76 18 129/73 97 06/24/16 08:00 06/24/16 10:16 06/24/16 08:00 06/24/16 10:16 06/24/16 08:00 Intake and Output: 06/24/16 06/24/16 06:59 18:59 Intake Total 1260 860 Output Total 2500 800 Balance -1240 60 - Medications Medications: Current Medications Acetaminophen (Tylenol 325mg Tab) 650 mg PO Q6H PRN PRN Reason: Fever >100.4 F Last Admin: 06/24/16 00:15 Dose: 650 mg Albuterol/Ipratropium (Duoneb 3 Mg/0.5 Mg (3 Ml) Ud) 3 ml IH Q2H PRN PRN Reason: Shortness of Breath Last Admin: 06/23/16 23:50 Dose: 3 ml Albuterol/Ipratropium (Duoneb 3 Mg/0.5 Mg (3 Ml) Ud) 3 ml IH [id number] [facility] Last Admin: 06/24/16 13:35 Dose: 3 ml Amlodipine Besylate (Norvasc) 10 mg PO DAILY [facility] Last Admin: 06/24/16 10:16 Dose: 10 mg Clonidine HCl (Catapres) 0.1 mg PO TID PRN PRN Reason: Systolic Blood Pressure Last Admin: 06/24/16 00:15 Dose: 0.1 mg Guaifenesin (Robitussin) 100 mg PO Q4H PRN PRN Reason: Cough Last Admin: 06/23/16 10:35 Dose: 100 mg Heparin Sodium (Porcine) (Heparin) 5,000 units SC Q12 [facility]YN PRN Reason: Protocol Last Admin: 06/24/16 10:18 Dose: 5,000 units Nafcillin Sodium 2 gm/ (Dextrose) 100 mls @ 100 mls/hr IVPB Q6 [facility] PRN Reason: Protocol Last Admin: 06/24/16 13:00 Dose: 100 mls/hr Vancomycin HCl 1.5 gm/ Sodium (Chloride) 500 mls @ 167 mls/hr IVPB Q12 [facility] PRN Reason: Protocol Last Admin: 06/24/16 10:19 Dose: 167 mls/hr Insulin Detemir (Levemir) 24 unit SC HS LYN Insulin Human Lispro (Humalog Low) 0 units SC ACHS [facility] PRN Reason: Protocol Last Admin: 06/24/16 11:31 Dose: Not Given Insulin Human Lispro (Humalog) 14 units SC AC LYN Lisinopril (Zestril) 30 mg PO DAILY [facility] Last Admin: 06/24/16 10:16 Dose: 30 mg Pantoprazole Sodium (Protonix Ec Tab) 40 mg PO ACB [facility] Last Admin: 06/24/16 08:32 Dose: 40 mg - Labs Labs: 06/24/16 07:00 06/24/16 07:00 PT 10.7 Seconds (9.9-11.8) 06/19/16 18:15 INR 0.99 (0.93-1.08) 06/19/16 18:15 APTT 30.8 Seconds (23.7-30.8) 06/19/16 18:15 Attending/Attestation - Attestation I have personally seen and examined this patient.: Yes I have fully participated in the care of the patient.: Yes I have reviewed all pertinent clinical information, including history, physical exam and plan: Yes Notes (Text): 06/24/16 16:11 attending note; Patient seen and examined with resident. This is a 61 year old man with history of HTN and NIDDM who presented with generalized weakness, polydysia, polyuria, hemoptysis, cough with greenish/ brown colored sputum, intermittent confusion and found to have DKA, hemoptysis and sepsis due to a multifocal pneumoni. patient was also found to have MSSA bacteremia. CT chest showed multifocal pneumonia with tree in bud pattern. AFB x 3 is negative. continue vancomycin and Zosyn. Follow up with ID . echo showed no vegetations. Currently patient is on Levemir. Follow up with endocrinology . Diabetic nurse educator evaluation requested. Dietary education given. the diagnosis and follow-up plan discussed with patient and patient's in detail.
[2016-06-23] MEDS ORDERED: Albuterol-Ipratrop 3 mg / 0.5 (3 ml) UD IH PRN (09:44)
[2016-06-23] MEDS: guaiFENesin 100 mg/5 ml Syrup UD PO PRN (10:35)
[2016-06-23] MEDS: Vancomycin 1.5 GM in Sodium Chloride 0.9% 500 ML IVPB SCH ×2 (10:38→22:44)
--- NOTE | 2016-06-23 11:08 | CP.CCUPN ---
Addendum entered and electronically signed by Anahi Schmid DO 06/23/16 16:05 : Plan: Endo: hypoglyemia in the AM followed by hyperglycemia throughout the day Per Dr. Hurst, adjust PM dose of levemir from 24 to 20, continue Humalog 12units TID before meals and ISS low PRN ID: repeat procalcitonin to monitor therapy efficacy Per Go: D/C zosyn, start IV nafcillin, D/c vanc when afebrile, and consider PO high dose augmentin when consistently afebrile Original Note: <Anahi Schmid - Last Filed: 06/23/16 11:25> CCU Subjective - Physician Review Events Since Last Encounter (Free Text): 06/23/16 11:04 Pt s/e at bedside this AM. NAEO. Patient states that cough is better this AM, with sputum white instead of brown. Denies any chest pain, SOB, nausea, vomiting , numbness or tingling, polyuria or dysuria. Reports persistent lower back pain , intermittent headache with coughing and blurry vision, and loose, non-bloody stool. Vitals stable, afebrile overnight. Glucose was 61 this AM so morning 12units of scheduled humalog was held. CCU Objective - Vital Signs / Intake & Output Vital Signs (Last 4 hours): Vital Signs Pulse BP 06/23/16 10:33 92 H 170/89 H 06/23/16 10:32 170/89 H Intake and Output (Last 8hrs): Intake & Output 06/22/16 06/23/16 06/23/16 22:59 06:59 14:59 Intake Total 1300 1150 Output Total 1076 1000 Balance 224 150 Intake: IV 900 700 Left Antecubital 450 Right Hand 450 700 Oral 400 450 Output: Urine 1075 1000 Condom 1000 Urine, Voided 1075 Stool 1 Other: Voiding Method Incontinent # Voids Condom 6 # Bowel Movements 1 0 - Physical Exam Head: Positive for: Atraumatic, Normocephalic Pupils: Positive for: PERRL Extroacular Muscles: Positive for: EOMI Conjunctiva: Positive for: Normal Mouth: Positive for: Moist Mucous Membranes Pharnyx: Positive for: Normal. Negative for: ERYTHEMA, EXUDATE Nose (External): Positive for: Atraumatic Neck: Positive for: Normal Range of Motion Respiratory/Chest: Positive for: Decreased Breath Sounds (BL), Rhonchi. Negative for: Respiratory Distress, Accessory Muscle Use Cardiovascular: Positive for: Regular Rate and Rhythm, Normal S1, S2. Negative for: Murmurs Abdomen: Positive for: Normal Bowel Sounds. Negative for: Tenderness, Distention, Peritoneal Signs, Rebound Back: Positive for: Paraspinal Tenderness (lumbar spine). Negative for: CVA Tenderness, Midline Tenderness Upper Extremity: Positive for: Normal Inspection, Neurovascularly Intact, Capillary Refill < 2s. Negative for: Edema Lower Extremity: Positive for: Normal Inspection, NORMAL PULSES, Capillary Refill < 2 s. Negative for: Edema Neurological: Positive for: GCS=15, CN II-XII Intact, Speech Normal, Motor Func Grossly Intact Skin: Positive for: Warm, Dry, Normal Color Psychiatric: Positive for: Alert, Oriented x 3, Normal Insight, Normal Concentration - Medications Active Medications: Active Medications Generic Name Dose Route Start Last Admin Trade Name Freq PRN Reason Stop Dose Admin Acetaminophen 650 mg 06/19/16 19:56 06/21/16 17:27 Tylenol 325mg Tab PO 650 mg Q6H PRN Administration Fever >100.4 F Albuterol/Ipratropium 3 ml 06/23/16 09:44 Duoneb 3 Mg/0.5 Mg (3 Ml) Ud IH Q2H PRN Shortness of Breath Albuterol/Ipratropium 3 ml 06/23/16 14:00 Duoneb 3 Mg/0.5 Mg (3 Ml) Ud IH [id number] LYN Amlodipine Besylate 10 mg 06/20/16 10:00 06/23/16 10:32 Norvasc PO 10 mg DAILY LYN Administration Clonidine HCl 0.1 mg 06/20/16 02:14 06/21/16 10:00 Catapres PO 0.1 mg TID PRN Administration Systolic Blood Pressure Guaifenesin 100 mg 06/23/16 09:44 06/23/16 10:35 Robitussin PO 100 mg Q4H PRN Administration Cough Heparin Sodium (Porcine) 5,000 units 06/22/16 22:00 06/23/16 10:30 Heparin SC 5,000 units Q12 LYN Administration Protocol Piperacillin Sod/Tazobactam Sod 100 mls @ 200 mls/hr 06/20/16 18:00 06/23/16 05:41 Zosyn 3.375 In Ns 100ml IVPB 200 mls/hr Q6 LYN Administration Protocol Vancomycin HCl 1.5 gm/ Sodium 500 mls @ 167 mls/hr 06/22/16 22:16 06/23/16 10 :38 Chloride IVPB 06/23/16 11:45 167 mls/hr Q12H LYN Administration Protocol Insulin Detemir 24 unit 06/22/16 22:00 06/22/16 22:18 Levemir SC 24 unit HS LYN Administration Insulin Human Lispro 12 units 06/22/16 16:30 06/23/16 08:21 Humalog SC Not Given AC LYN Insulin Human Lispro 0 units 06/22/16 16:30 06/23/16 08:22 Humalog Low SC Not Given ACHS LYN Protocol Lisinopril 30 mg 06/20/16 10:00 06/23/16 10:33 Zestril PO 30 mg DAILY LYN Administration Pantoprazole Sodium 40 mg 06/22/16 07:30 06/23/16 08:53 Protonix Ec Tab PO 40 mg ACB LYN Administration - Patient Studies Lab Studies: Microbiology Studies 06/21/16 10:30 Gram Stain - Final Sputum Sputum Culture - Final Staphylococcus Aureus 06/21/16 07:00 Mycobacterial Culture - Preliminary Other: Please Indicate 06/20/16 14:00 Blood Culture - Final Blood Staphylococcus Aureus Gram Stain - Final 06/20/16 13:30 Blood Culture - Final Blood Staphylococcus Aureus Gram Stain - Final 06/20/16 08:06 Urine Culture - Final Urine,Clean Catch Yeast Species Lab Studies 06/23/16 06/23/16 06/23/16 Range/Units 07:37 06:30 06:30 WBC (4.5-11.0) 10^3/ul RBC (3.5-6.1) 10^6/uL Hgb (14.0-18.0) gm/dL Hct (42.0-52.0) % MCV (80.0-105.0) fL MCH (25.0-35.0) pg MCHC (31.0-37.0) g/dl RDW (11.5-14.5) % Plt Count (120.0-450.0) 10^3/uL Gran % (50.0-68.0) % Lymph % (Auto) (22.0-35.0) % [place] % (Auto) (1.0-6.0) % Eos % (Auto) (1.5-5.0) % Baso % (Auto) (0.0-3.0) % Gran # (1.4-6.5) Lymph # (1.2-3.4) [place] # (0.1-0.6) Eos # (0.0-0.7) Baso # (0.0-2.0) K/mm3 Corrected WBC (Man) Neutrophils % (Manual) Band Neutrophils % Lymphocytes % (Manual) Atypical Lymphs % Monocytes % (Manual) Eosinophils % (Manual) Basophils % (Manual) Metamyelocytes % Myelocytes % Promyelocytes % Nucleated RBC % Hypersegmented Polys Immature Lymphocytes Blast Cells Smudge Cells Toxic Granulation Dohle Bodies Jessenia Rods Platelet Evaluation Plt Clumps, EDTA Large Platelets Giant Platelets Polychromasia Hypochromasia Hyperchromasia Poikilocytosis (manual Basophilic Stippling Anisocytosis (manual) Microcytosis (manual) Macrocytosis (manual) Spherocytes Sickle Cells Target Cells Tear Drop Cells Ovalocytes Stomatocytes Helmet Cells [place] Rings [place] Cells Acanthocytes (Spur) Rouleaux Sodium 142 (132-148) mmol/L Potassium 3.5 L (3.6-5.0) mmol/L Chloride 108 H (98-107) mmol/L Carbon Dioxide 25 (21-33) mmol/L Anion Gap 13 (10-20) BUN 10 (7-21) mg/dL Creatinine 1.0 (0.5-1.4) mg/dL Est GFR ( Amer) > 60 Est GFR (Non-Af Amer) > 60 POC Glucose (mg/dL) 61 L (65-110) mg/dL Random Glucose 84 (70-110) mg/dL Hemoglobin A1c (4.2-6.5) % Calcium 8.7 (8.4-10.5) mg/dL Phosphorus 2.9 (2.5-4.5) mg/dL Magnesium 2.3 H (1.7-2.2) mg/dL Total Bilirubin 0.8 (0.2-1.3) mg/dL AST 30 (15-59) U/L ALT 38 (7-56) U/L Alkaline Phosphatase 95 (38-133) U/L Total Protein 7.0 (5.8-8.3) g/dL Albumin 2.8 L (3.0-4.8) g/dL Globulin 4.2 gm/dL Albumin/Globulin Ratio 0.7 L (1.1-1.8) Free T4 (0.78-2.19) ng/dL TSH 3rd Generation (0.46-4.68) mIU/mL 06/23/16 06/22/16 06/22/16 Range/Units 06:30 21:41 16:18 WBC 9.7 (4.5-11.0) 10^3/ul RBC 4.48 (3.5-6.1) 10^6/uL Hgb 12.3 L (14.0-18.0) gm/dL Hct 36.8 L (42.0-52.0) % MCV 82.1 (80.0-105.0) fL MCH 27.5 (25.0-35.0) pg MCHC 33.4 (31.0-37.0) g/dl RDW 14.6 H (11.5-14.5) % Plt Count 190 (120.0-450.0) 10^3/uL Gran % 68.3 H (50.0-68.0) % Lymph % (Auto) 18.2 L (22.0-35.0) % [place] % (Auto) 13.1 H (1.0-6.0) % Eos % (Auto) 0.1 L (1.5-5.0) % Baso % (Auto) 0.3 (0.0-3.0) % Gran # 6.62 H (1.4-6.5) Lymph # 1.8 (1.2-3.4) [place] # 1.3 H (0.1-0.6) Eos # 0.0 (0.0-0.7) Baso # 0.03 (0.0-2.0) K/mm3 Corrected WBC (Man) Neutrophils % (Manual) Band Neutrophils % Lymphocytes % (Manual) Atypical Lymphs % Monocytes % (Manual) Eosinophils % (Manual) Basophils % (Manual) Metamyelocytes % Myelocytes % Promyelocytes % Nucleated RBC % Hypersegmented Polys Immature Lymphocytes Blast Cells Smudge Cells Toxic Granulation Dohle Bodies Jessenia Rods Platelet Evaluation Plt Clumps, EDTA Large Platelets Giant Platelets Polychromasia Hypochromasia Hyperchromasia Poikilocytosis (manual Basophilic Stippling Anisocytosis (manual) Microcytosis (manual) Macrocytosis (manual) Spherocytes Sickle Cells Target Cells Tear Drop Cells Ovalocytes Stomatocytes Helmet Cells [place] Cells Acanthocytes (Spur) Rouleaux Sodium (132-148) mmol/L Potassium (3.6-5.0) mmol/L Chloride (98-107) mmol/L Carbon Dioxide (21-33) mmol/L Anion Gap (10-20) BUN (7-21) mg/dL Creatinine (0.5-1.4) mg/dL Est GFR ( Amer) Est GFR (Non-Af Amer) POC Glucose (mg/dL) 303 H 317 H (65-110) mg/dL Random Glucose (70-110) mg/dL Hemoglobin A1c (4.2-6.5) % Calcium (8.4-10.5) mg/dL Phosphorus (2.5-4.5) mg/dL Magnesium (1.7-2.2) mg/dL Total Bilirubin (0.2-1.3) mg/dL AST (15-59) U/L ALT (7-56) U/L Alkaline Phosphatase (38-133) U/L Total Protein (5.8-8.3) g/dL Albumin (3.0-4.8) g/dL Globulin gm/dL Albumin/Globulin Ratio (1.1-1.8) Free T4 (0.78-2.19) ng/dL TSH 3rd Generation (0.46-4.68) mIU/mL 06/22/16 06/22/16 06/22/16 Range/Units 16:10 12:20 12:20 WBC (4.5-11.0) 10^3/ul RBC (3.5-6.1) 10^6/uL Hgb (14.0-18.0) gm/dL Hct (42.0-52.0) % MCV (80.0-105.0) fL MCH (25.0-35.0) pg MCHC (31.0-37.0) g/dl RDW (11.5-14.5) % Plt Count (120.0-450.0) 10^3/uL Gran % (50.0-68.0) % Lymph % (Auto) (22.0-35.0) % [place] % (Auto) (1.0-6.0) % Eos % (Auto) (1.5-5.0) % Baso % (Auto) (0.0-3.0) % Gran # (1.4-6.5) Lymph # (1.2-3.4) [place] # (0.1-0.6) Eos # (0.0-0.7) Baso # (0.0-2.0) K/mm3 Corrected WBC (Man) Neutrophils % (Manual) Band Neutrophils % Lymphocytes % (Manual) Atypical Lymphs % Monocytes % (Manual) Eosinophils % (Manual) Basophils % (Manual) Metamyelocytes % Myelocytes % Promyelocytes % Nucleated RBC % Hypersegmented Polys Immature Lymphocytes Blast Cells Smudge Cells Toxic Granulation Dohle Bodies Jessenia Rods Platelet Evaluation Plt Clumps, EDTA Large Platelets Giant Platelets Polychromasia Hypochromasia Hyperchromasia Poikilocytosis (manual Basophilic Stippling Anisocytosis (manual) Microcytosis (manual) Macrocytosis (manual) Spherocytes Sickle Cells Target Cells Tear Drop Cells Ovalocytes Stomatocytes Helmet Cells [place] Rings [place] Cells Acanthocytes (Spur) Rouleaux Sodium 137 135 (132-148) mmol/L Potassium 3.8 3.8 (3.6-5.0) mmol/L Chloride 105 108 H (98-107) mmol/L Carbon Dioxide 22 19 L (21-33) mmol/L Anion Gap 14 12 (10-20) BUN 12 11 (7-21) mg/dL Creatinine 1.0 1.0 (0.5-1.4) mg/dL Est GFR ( Amer) > 60 > 60 Est GFR (Non-Af Amer) > 60 > 60 POC Glucose (mg/dL) (65-110) mg/dL Random Glucose 320 H* 310 H* (70-110) mg/dL Hemoglobin A1c (4.2-6.5) % Calcium 8.2 L 8.2 L (8.4-10.5) mg/dL Phosphorus (2.5-4.5) mg/dL Magnesium (1.7-2.2) mg/dL Total Bilirubin 0.9 0.9 (0.2-1.3) mg/dL AST 33 30 (15-59) U/L ALT 40 40 (7-56) U/L Alkaline Phosphatase 104 95 (38-133) U/L Total Protein 6.8 6.8 (5.8-8.3) g/dL Albumin 2.9 L 2.7 L (3.0-4.8) g/dL Globulin 3.9 4.1 gm/dL Albumin/Globulin Ratio 0.7 L 0.7 L (1.1-1.8) Free T4 0.95 (0.78-2.19) ng/dL TSH 3rd Generation 0.23 L (0.46-4.68) mIU/mL 06/22/16 06/22/16 06/20/16 Range/Units 11:29 07:45 07:00 WBC (4.5-11.0) 10^3/ul RBC (3.5-6.1) 10^6/uL Hgb (14.0-18.0) gm/dL Hct (42.0-52.0) % MCV (80.0-105.0) fL MCH (25.0-35.0) pg MCHC (31.0-37.0) g/dl RDW (11.5-14.5) % Plt Count (120.0-450.0) 10^3/uL Gran % (50.0-68.0) % Lymph % (Auto) (22.0-35.0) % [place] % (Auto) (1.0-6.0) % Eos % (Auto) (1.5-5.0) % Baso % (Auto) (0.0-3.0) % Gran # (1.4-6.5) Lymph # (1.2-3.4) [place] # (0.1-0.6) Eos # (0.0-0.7) Baso # (0.0-2.0) K/mm3 Corrected WBC (Man) Neutrophils % (Manual) Band Neutrophils % Lymphocytes % (Manual) Atypical Lymphs % Monocytes % (Manual) Eosinophils % (Manual) Basophils % (Manual) Metamyelocytes % Myelocytes % Promyelocytes % Nucleated RBC % Hypersegmented Polys Immature Lymphocytes Blast Cells Smudge Cells Toxic Granulation Dohle Bodies Jessenia Rods Platelet Evaluation Plt Clumps, EDTA Large Platelets Giant Platelets Polychromasia Hypochromasia Hyperchromasia Poikilocytosis (manual Basophilic Stippling Anisocytosis (manual) Microcytosis (manual) Macrocytosis (manual) Spherocytes Sickle Cells Target Cells Tear Drop Cells Ovalocytes Stomatocytes Helmet Cells [place] Rings [place] Cells Acanthocytes (Spur) Rouleaux Sodium (132-148) mmol/L Potassium (3.6-5.0) mmol/L Chloride (98-107) mmol/L Carbon Dioxide (21-33) mmol/L Anion Gap (10-20) BUN (7-21) mg/dL Creatinine (0.5-1.4) mg/dL Est GFR ( Amer) Est GFR (Non-Af Amer) POC Glucose (mg/dL) 318 H 280 H (65-110) mg/dL Random Glucose (70-110) mg/dL Hemoglobin A1c 16.9 H (4.2-6.5) % Calcium (8.4-10.5) mg/dL Phosphorus (2.5-4.5) mg/dL Magnesium (1.7-2.2) mg/dL Total Bilirubin (0.2-1.3) mg/dL AST (15-59) U/L ALT (7-56) U/L Alkaline Phosphatase (38-133) U/L Total Protein (5.8-8.3) g/dL Albumin (3.0-4.8) g/dL Globulin gm/dL Albumin/Globulin Ratio (1.1-1.8) Free T4 (0.78-2.19) ng/dL TSH 3rd Generation (0.46-4.68) mIU/mL 06/20/16 Range/Units 04:00 WBC (4.5-11.0) 10^3/ul RBC (3.5-6.1) 10^6/uL Hgb (14.0-18.0) gm/dL Hct (42.0-52.0) % MCV (80.0-105.0) fL MCH (25.0-35.0) pg MCHC (31.0-37.0) g/dl RDW (11.5-14.5) % Plt Count (120.0-450.0) 10^3/uL Gran % (50.0-68.0) % Lymph % (Auto) (22.0-35.0) % [place] % (Auto) (1.0-6.0) % Eos % (Auto) (1.5-5.0) % Baso % (Auto) (0.0-3.0) % Gran # (1.4-6.5) Lymph # (1.2-3.4) [place] # (0.1-0.6) Eos # (0.0-0.7) Baso # (0.0-2.0) K/mm3 Corrected WBC (Man) Cancelled Neutrophils % (Manual) Cancelled Band Neutrophils % Cancelled Lymphocytes % (Manual) Cancelled Atypical Lymphs % Cancelled Monocytes % (Manual) Cancelled Eosinophils % (Manual) Cancelled Basophils % (Manual) Cancelled Metamyelocytes % Cancelled Myelocytes % Cancelled Promyelocytes % Cancelled Nucleated RBC % Cancelled Hypersegmented Polys Cancelled Immature Lymphocytes Cancelled Blast Cells Cancelled Smudge Cells Cancelled Toxic Granulation Cancelled Dohle Bodies Cancelled Jessenia Rods Cancelled Platelet Evaluation Cancelled Plt Clumps, EDTA Cancelled Large Platelets Cancelled Giant Platelets Cancelled Polychromasia Cancelled Hypochromasia Cancelled Hyperchromasia Cancelled Poikilocytosis (manual Cancelled Basophilic Stippling Cancelled Anisocytosis (manual) Cancelled Microcytosis (manual) Cancelled Macrocytosis (manual) Cancelled Spherocytes Cancelled Sickle Cells Cancelled Target Cells Cancelled Tear Drop Cells Cancelled Ovalocytes Cancelled Stomatocytes Cancelled Helmet Cells Cancelled [place] Rings Cancelled [place] Cells Cancelled Acanthocytes (Spur) Cancelled Rouleaux Cancelled Sodium (132-148) mmol/L Potassium (3.6-5.0) mmol/L Chloride (98-107) mmol/L Carbon Dioxide (21-33) mmol/L Anion Gap (10-20) BUN (7-21) mg/dL Creatinine (0.5-1.4) mg/dL Est GFR ( Amer) Est GFR (Non-Af Amer) POC Glucose (mg/dL) (65-110) mg/dL Random Glucose (70-110) mg/dL Hemoglobin A1c (4.2-6.5) % Calcium (8.4-10.5) mg/dL Phosphorus (2.5-4.5) mg/dL Magnesium (1.7-2.2) mg/dL Total Bilirubin (0.2-1.3) mg/dL AST (15-59) U/L ALT (7-56) U/L Alkaline Phosphatase (38-133) U/L Total Protein (5.8-8.3) g/dL Albumin (3.0-4.8) g/dL Globulin gm/dL Albumin/Globulin Ratio (1.1-1.8) Free T4 (0.78-2.19) ng/dL TSH 3rd Generation (0.46-4.68) mIU/mL Laboratory Results - last 24 hr 06/20/16 06/20/16 06/22/16 04:00 07:00 07:45 WBC RBC Hgb Hct MCV MCH MCHC RDW Plt Count Gran % Lymph % (Auto) [place] % (Auto) Eos % (Auto) Baso % (Auto) Gran # Lymph # [place] # Eos # Baso # Corrected WBC (Man) Cancelled Neutrophils % (Manual) Cancelled Band Neutrophils % Cancelled Lymphocytes % (Manual) Cancelled Atypical Lymphs % Cancelled Monocytes % (Manual) Cancelled Eosinophils % (Manual) Cancelled Basophils % (Manual) Cancelled Metamyelocytes % Cancelled Myelocytes % Cancelled Promyelocytes % Cancelled Nucleated RBC % Cancelled Hypersegmented Polys Cancelled Immature Lymphocytes Cancelled Blast Cells Cancelled Smudge Cells Cancelled Toxic Granulation Cancelled Dohle Bodies Cancelled Jessenia Rods Cancelled Platelet Evaluation Cancelled Plt Clumps, EDTA Cancelled Large Platelets Cancelled Giant Platelets Cancelled Polychromasia Cancelled Hypochromasia Cancelled Hyperchromasia Cancelled Poikilocytosis (manual Cancelled Basophilic Stippling Cancelled Anisocytosis (manual) Cancelled Microcytosis (manual) Cancelled Macrocytosis (manual) Cancelled Spherocytes Cancelled Sickle Cells Cancelled Target Cells Cancelled Tear Drop Cells Cancelled Ovalocytes Cancelled Stomatocytes Cancelled Helmet Cells Cancelled [place] Rings Cancelled [place] Cells Cancelled Acanthocytes (Spur) Cancelled Rouleaux Cancelled Sodium Potassium Chloride Carbon Dioxide Anion Gap BUN Creatinine Est GFR ( Amer) Est GFR (Non-Af Amer) POC Glucose (mg/dL) 280 H Random Glucose Hemoglobin A1c 16.9 H Calcium Phosphorus Magnesium Total Bilirubin AST ALT Alkaline Phosphatase Total Protein Albumin Globulin Albumin/Globulin Ratio Free T4 TSH 3rd Generation 06/22/16 06/22/16 06/22/16 11:29 12:20 12:20 WBC RBC Hgb Hct MCV MCH MCHC RDW Plt Count Gran % Lymph % (Auto) [place] % (Auto) Eos % (Auto) Baso % (Auto) Gran # Lymph # [place] # Eos # Baso # Corrected WBC (Man) Neutrophils % (Manual) Band Neutrophils % Lymphocytes % (Manual) Atypical Lymphs % Monocytes % (Manual) Eosinophils % (Manual) Basophils % (Manual) Metamyelocytes % Myelocytes % Promyelocytes % Nucleated RBC % Hypersegmented Polys Immature Lymphocytes Blast Cells Smudge Cells Toxic Granulation Dohle Bodies Jessenia Rods Platelet Evaluation Plt Clumps, EDTA Large Platelets Giant Platelets Polychromasia Hypochromasia Hyperchromasia Poikilocytosis (manual Basophilic Stippling Anisocytosis (manual) Microcytosis (manual) Macrocytosis (manual) Spherocytes Sickle Cells Target Cells Tear Drop Cells Ovalocytes Stomatocytes Helmet Cells [place] Rings [place] Cells Acanthocytes (Spur) Rouleaux Sodium 135 Potassium 3.8 Chloride 108 H Carbon Dioxide 19 L Anion Gap 12 BUN 11 Creatinine 1.0 Est GFR ( Amer) > 60 Est GFR (Non-Af Amer) > 60 POC Glucose (mg/dL) 318 H Random Glucose 310 H* Hemoglobin A1c Calcium 8.2 L Phosphorus Magnesium Total Bilirubin 0.9 AST 30 ALT 40 Alkaline Phosphatase 95 Total Protein 6.8 Albumin 2.7 L Globulin 4.1 Albumin/Globulin Ratio 0.7 L Free T4 0.95 TSH 3rd Generation 0.23 L 06/22/16 06/22/16 06/22/16 16:10 16:18 21:41 WBC RBC Hgb Hct MCV MCH MCHC RDW Plt Count Gran % Lymph % (Auto) [place] % (Auto) Eos % (Auto) Baso % (Auto) Gran # Lymph # [place] # Eos # Baso # Corrected WBC (Man) Neutrophils % (Manual) Band Neutrophils % Lymphocytes % (Manual) Atypical Lymphs % Monocytes % (Manual) Eosinophils % (Manual) Basophils % (Manual) Metamyelocytes % Myelocytes % Promyelocytes % Nucleated RBC % Hypersegmented Polys Immature Lymphocytes Blast Cells Smudge Cells Toxic Granulation Dohle Bodies Jessenia Rods Platelet Evaluation Plt Clumps, EDTA Large Platelets Giant Platelets Polychromasia Hypochromasia Hyperchromasia Poikilocytosis (manual Basophilic Stippling Anisocytosis (manual) Microcytosis (manual) Macrocytosis (manual) Spherocytes Sickle Cells Target Cells Tear Drop Cells Ovalocytes Stomatocytes Helmet Cells [place] Rings [place] Cells Acanthocytes (Spur) Rouleaux Sodium 137 Potassium 3.8 Chloride 105 Carbon Dioxide 22 Anion Gap 14 BUN 12 Creatinine 1.0 Est GFR ( Amer) > 60 Est GFR (Non-Af Amer) > 60 POC Glucose (mg/dL) 317 H 303 H Random Glucose 320 H* Hemoglobin A1c Calcium 8.2 L Phosphorus Magnesium Total Bilirubin 0.9 AST 33 ALT 40 Alkaline Phosphatase 104 Total Protein 6.8 Albumin 2.9 L Globulin 3.9 Albumin/Globulin Ratio 0.7 L Free T4 TSH 3rd Generation 06/23/16 06/23/16 06/23/16 06:30 06:30 06:30 WBC 9.7 RBC 4.48 Hgb 12.3 L Hct 36.8 L MCV 82.1 MCH 27.5 MCHC 33.4 RDW 14.6 H Plt Count 190 Gran % 68.3 H Lymph % (Auto) 18.2 L [place] % (Auto) 13.1 H Eos % (Auto) 0.1 L Baso % (Auto) 0.3 Gran # 6.62 H Lymph # 1.8 [place] # 1.3 H Eos # 0.0 Baso # 0.03 Corrected WBC (Man) Neutrophils % (Manual) Band Neutrophils % Lymphocytes % (Manual) Atypical Lymphs % Monocytes % (Manual) Eosinophils % (Manual) Basophils % (Manual) Metamyelocytes % Myelocytes % Promyelocytes % Nucleated RBC % Hypersegmented Polys Immature Lymphocytes Blast Cells Smudge Cells Toxic Granulation Dohle Bodies Jessenia Rods Platelet Evaluation Plt Clumps, EDTA Large Platelets Giant Platelets Polychromasia Hypochromasia Hyperchromasia Poikilocytosis (manual Basophilic Stippling Anisocytosis (manual) Microcytosis (manual) Macrocytosis (manual) Spherocytes Sickle Cells Target Cells Tear Drop Cells Ovalocytes Stomatocytes Helmet Cells [place] Rings [place] Cells Acanthocytes (Spur) Rouleaux Sodium 142 Potassium 3.5 L Chloride 108 H Carbon Dioxide 25 Anion Gap 13 BUN 10 Creatinine 1.0 Est GFR ( Amer) > 60 Est GFR (Non-Af Amer) > 60 POC Glucose (mg/dL) Random Glucose 84 Hemoglobin A1c Calcium 8.7 Phosphorus 2.9 Magnesium 2.3 H Total Bilirubin 0.8 AST 30 ALT 38 Alkaline Phosphatase 95 Total Protein 7.0 Albumin 2.8 L Globulin 4.2 Albumin/Globulin Ratio 0.7 L Free T4 TSH 3rd Generation 06/23/16 07:37 WBC RBC Hgb Hct MCV MCH MCHC RDW Plt Count Gran % Lymph % (Auto) [place] % (Auto) Eos % (Auto) Baso % (Auto) Gran # Lymph # [place] # Eos # Baso # Corrected WBC (Man) Neutrophils % (Manual) Band Neutrophils % Lymphocytes % (Manual) Atypical Lymphs % Monocytes % (Manual) Eosinophils % (Manual) Basophils % (Manual) Metamyelocytes % Myelocytes % Promyelocytes % Nucleated RBC % Hypersegmented Polys Immature Lymphocytes Blast Cells Smudge Cells Toxic Granulation Dohle Bodies Jessenia Rods Platelet Evaluation Plt Clumps, EDTA Large Platelets Giant Platelets Polychromasia Hypochromasia Hyperchromasia Poikilocytosis (manual Basophilic Stippling Anisocytosis (manual) Microcytosis (manual) Macrocytosis (manual) Spherocytes Sickle Cells Target Cells Tear Drop Cells Ovalocytes Stomatocytes Helmet Cells [place] Rings [place] Cells Acanthocytes (Spur) Rouleaux Sodium Potassium Chloride Carbon Dioxide Anion Gap BUN Creatinine Est GFR ( Amer) Est GFR (Non-Af Amer) POC Glucose (mg/dL) 61 L Random Glucose Hemoglobin A1c Calcium Phosphorus Magnesium Total Bilirubin AST ALT Alkaline Phosphatase Total Protein Albumin Globulin Albumin/Globulin Ratio Free T4 TSH 3rd Generation Fingerstick Blood Sugar Results: 61 Review of Systems - Constitutional Constitutional: Fever. absent: Chills - EENT Eyes: Blurred Vision - Cardiovascular Cardiovascular: absent: Chest Pain, Chest Pain at Rest, Dyspnea - Respiratory Respiratory: Cough. absent: Dyspnea, Hemoptysis - Gastrointestinal Gastrointestinal: Diarrhea. absent: Abdominal Pain, Constipation - Genitourinary Genitourinary: absent: Dysuria, Hematuria - Musculoskeletal Musculoskeletal: Back Pain. absent: Numbness, Tingling - Neurological Neurological: absent: Numbness, Tingling - Psychiatric Psychiatric: UNREMARKABLE - Endocrine Endocrine: Polydipsia. absent: Polyuria Critical Care Progress Note - Nutrition Nutrition: Nutrition Category Date Time Status Diabetic [Consistent Carbohydrate] [DIET] Diets 06/21/16 Lunch Ordered Assessment/Plan - Assessment and Plan (Free Text) Assessment: 61M with PMH of NIDDM with medication untreated for 7months, HTN, and former 20pack year smoking history quit 20 years ago with DKA and dyspnea/hemoptysis with CAP vs. TB Neuro: AA&OX3, headache with cough, blurry vision PERRL, CNII-XII intact Continue to monitor Tylenol for headache Cardio: No complaints, normocardic, normotensive RRR, S1/S2, no murmurs Continue to monitor vitals Continue Norvasc, Lisinopril, and PRN clonidine for hypertension Pulm: Improving productive cough, no recent hemoptysis vitals stable, no hypoxia on 2L [place] [employer]: negativex3, Blood: 06/19: MSSAx2, 06/20: gram+cocci in clusters, Sputum: MSSA Mycobacterium culture, repeat Blood cultures 06/22, and quanteferon gold pending Continue to monitor vitals Isolation D/C'd Continue abx per ID F/U cultures Supplement O2 to keep SaO2>95% GI: Loose, non-bloody stool abdominal exam benign Tolerating CCD well Continue to monitor Endo: Anion gap still closed Glucose 61 this AM, held humalog 12u this AM, repeat 226, continue to follow Levemir 10mg BID, humalog 12u BID, ISS low PRN Follow up Endo recs regarding insulin Continue to monitor blood glucose Hgb A1C pending ID: Max temp overnight: 100F Currently afebrile, normocardic CT: multifocal pneumonia AFB: negativex3, Blood: 06/19: MSSAx2, 06/20: gram+cocci in clusters, Sputum: MSSA Mycobacterium culture, repeat Blood cultures 06/22, and quanteferon gold pending Vanc trough: low yesterday, increased vanc to 1.5g BID, repeat trough in 2 days Continue to monitor vitals Continue abx per ID F/U cultures PPX: protonix, SCD's Patient seen and discussed at length with Dr. Ramiro Schmid, PGY1 <Tripp Rubio - Last Filed: 05/16/17 20:08> CCU Objective - Vital Signs / Intake & Output Vital Signs (Last 4 hours): Vital Signs Temp Pulse Resp BP Pulse Ox 06/23/16 18:45 99.4 F 78 18 153/81 H 97 06/23/16 17:00 77 28 H 145/72 98 06/23/16 16:30 72 29 H 154/77 H 98 Intake and Output (Last 8hrs): Intake & Output 06/23/16 06/23/16 06/23/16 06:59 14:59 22:59 Intake Total 1150 1370 Output Total 1000 850 Balance 150 520 Intake: IV 700 700 Right Hand 700 700 Oral 450 640 Other 30 Output: Urine 1000 850 Condom 1000 Urine, Voided 850 Other: Voiding Method Incontinent # Voids Condom 6 # Bowel Movements 0 - Medications Active Medications: Active Medications Generic Name Dose Route Start Last Admin Trade Name Freq PRN Reason Stop Dose Admin Acetaminophen 650 mg 06/19/16 19:56 06/23/16 12:35 Tylenol 325mg Tab PO 650 mg Q6H PRN Administration Fever >100.4 F Albuterol/Ipratropium 3 ml 06/23/16 09:44 Duoneb 3 Mg/0.5 Mg (3 Ml) Ud IH Q2H PRN Shortness of Breath Albuterol/Ipratropium 3 ml 06/23/16 14:00 06/23/16 19:13 Duoneb 3 Mg/0.5 Mg (3 Ml) Ud IH 3 ml [id number] LYN Administration Amlodipine Besylate 10 mg 06/20/16 10:00 06/23/16 10:32 Norvasc PO 10 mg DAILY LYN Administration Clonidine HCl 0.1 mg 06/20/16 02:14 06/21/16 10:00 Catapres PO 0.1 mg TID PRN Administration Systolic Blood Pressure Guaifenesin 100 mg 06/23/16 09:44 06/23/16 10:35 Robitussin PO 100 mg Q4H PRN Administration Cough Heparin Sodium (Porcine) 5,000 units 06/22/16 22:00 06/23/16 10:30 Heparin SC 5,000 units Q12 LYN Administration Protocol Nafcillin Sodium 2 gm/ 100 mls @ 100 mls/hr 06/23/16 18:00 06/23/16 17:00 Dextrose IVPB 100 mls/hr Q6 LYN Administration Protocol Vancomycin HCl 1.5 gm/ Sodium 500 mls @ 167 mls/hr 06/23/16 22:00 Chloride IVPB Q12 LYN Protocol Insulin Detemir 20 unit 06/23/16 14:22 Levemir SC HS LYN Insulin Human Lispro 12 units 06/22/16 16:30 06/23/16 16:50 Humalog SC 12 units AC LYN Administration Insulin Human Lispro 0 units 06/22/16 16:30 06/23/16 16:52 Humalog Low SC Not Given ACHS LYN Protocol Lisinopril 30 mg 06/20/16 10:00 06/23/16 10:33 Zestril PO 30 mg DAILY LYN Administration Pantoprazole Sodium 40 mg 06/22/16 07:30 06/23/16 08:53 Protonix Ec Tab PO 40 mg ACB LYN Administration - Patient Studies Lab Studies: Microbiology Studies 06/22/16 12:20 Blood Culture - Preliminary Blood Gram Pos Cocci In Clusters Gram Stain - Final 06/22/16 15:18 Mycobacterial Culture - Preliminary Other: Please Indicate 06/22/16 12:20 Blood Culture - Preliminary Blood NO GROWTH AFTER 24 HOURS 06/21/16 10:30 Gram Stain - Final Sputum Sputum Culture - Final Staphylococcus Aureus Lab Studies 06/23/16 06/23/16 06/23/16 Range/Units 19:30 19:30 16:12 WBC (4.5-11.0) 10^3/ul RBC (3.5-6.1) 10^6/uL Hgb (14.0-18.0) gm/dL Hct (42.0-52.0) % MCV (80.0-105.0) fL MCH (25.0-35.0) pg MCHC (31.0-37.0) g/dl RDW (11.5-14.5) % Plt Count (120.0-450.0) 10^3/uL Gran % (50.0-68.0) % Lymph % (Auto) (22.0-35.0) % [place] % (Auto) (1.0-6.0) % Eos % (Auto) (1.5-5.0) % Baso % (Auto) (0.0-3.0) % Gran # (1.4-6.5) Lymph # (1.2-3.4) [place] # (0.1-0.6) Eos # (0.0-0.7) Baso # (0.0-2.0) K/mm3 Sodium 135 (132-148) mmol/L Potassium 3.8 (3.6-5.0) mmol/L Chloride 104 (98-107) mmol/L Carbon Dioxide 21 (21-33) mmol/L Anion Gap 14 (10-20) BUN 9 (7-21) mg/dL Creatinine 1.0 (0.5-1.4) mg/dL Est GFR ( Amer) > 60 Est GFR (Non-Af Amer) > 60 POC Glucose (mg/dL) 266 H (65-110) mg/dL Random Glucose 232 H (70-110) mg/dL Calcium 8.3 L (8.4-10.5) mg/dL Phosphorus (2.5-4.5) mg/dL Magnesium (1.7-2.2) mg/dL Total Bilirubin (0.2-1.3) mg/dL AST (15-59) U/L ALT (7-56) U/L Alkaline Phosphatase (38-133) U/L Total Protein (5.8-8.3) g/dL Albumin (3.0-4.8) g/dL Globulin gm/dL Albumin/Globulin Ratio (1.1-1.8) Vancomycin Peak 11.3 L (30.0-40.0) ug/mL Vancomycin Trough (5.0-10.0) ug/mL 06/23/16 06/23/16 06/23/16 Range/Units 11:28 11:00 09:26 WBC (4.5-11.0) 10^3/ul RBC (3.5-6.1) 10^6/uL Hgb (14.0-18.0) gm/dL Hct (42.0-52.0) % MCV (80.0-105.0) fL MCH (25.0-35.0) pg MCHC (31.0-37.0) g/dl RDW (11.5-14.5) % Plt Count (120.0-450.0) 10^3/uL Gran % (50.0-68.0) % Lymph % (Auto) (22.0-35.0) % Barn[place] % (Auto) (1.0-6.0) % Eos % (Auto) (1.5-5.0) % Baso % (Auto) (0.0-3.0) % Gran # (1.4-6.5) Lymph # (1.2-3.4) Barn[place] # (0.1-0.6) Eos # (0.0-0.7) Baso # (0.0-2.0) K/mm3 Sodium (132-148) mmol/L Potassium (3.6-5.0) mmol/L Chloride (98-107) mmol/L Carbon Dioxide (21-33) mmol/L Anion Gap (10-20) BUN (7-21) mg/dL Creatinine (0.5-1.4) mg/dL Est GFR ( Amer) Est GFR (Non-Af Amer) POC Glucose (mg/dL) 226 H 176 H (65-110) mg/dL Random Glucose (70-110) mg/dL Calcium (8.4-10.5) mg/dL Phosphorus (2.5-4.5) mg/dL Magnesium (1.7-2.2) mg/dL Total Bilirubin (0.2-1.3) mg/dL AST (15-59) U/L ALT (7-56) U/L Alkaline Phosphatase (38-133) U/L Total Protein (5.8-8.3) g/dL Albumin (3.0-4.8) g/dL Globulin gm/dL Albumin/Globulin Ratio (1.1-1.8) Vancomycin Peak (30.0-40.0) ug/mL Vancomycin Trough 13.9 H (5.0-10.0) ug/mL 06/23/16 06/23/16 06/23/16 Range/Units 07:37 06:30 06:30 WBC (4.5-11.0) 10^3/ul RBC (3.5-6.1) 10^6/uL Hgb (14.0-18.0) gm/dL Hct (42.0-52.0) % MCV (80.0-105.0) fL MCH (25.0-35.0) pg MCHC (31.0-37.0) g/dl RDW (11.5-14.5) % Plt Count (120.0-450.0) 10^3/uL Gran % (50.0-68.0) % Lymph % (Auto) (22.0-35.0) % [place] % (Auto) (1.0-6.0) % Eos % (Auto) (1.5-5.0) % Baso % (Auto) (0.0-3.0) % Gran # (1.4-6.5) Lymph # (1.2-3.4) Barnwell # (0.1-0.6) Eos # (0.0-0.7) Baso # (0.0-2.0) K/mm3 Sodium 142 (132-148) mmol/L Potassium 3.5 L (3.6-5.0) mmol/L Chloride 108 H (98-107) mmol/L Carbon Dioxide 25 (21-33) mmol/L Anion Gap 13 (10-20) BUN 10 (7-21) mg/dL Creatinine 1.0 (0.5-1.4) mg/dL Est GFR ( Amer) > 60 Est GFR (Non-Af Amer) > 60 POC Glucose (mg/dL) 61 L (65-110) mg/dL Random Glucose 84 (70-110) mg/dL Calcium 8.7 (8.4-10.5) mg/dL Phosphorus 2.9 (2.5-4.5) mg/dL Magnesium 2.3 H (1.7-2.2) mg/dL Total Bilirubin 0.8 (0.2-1.3) mg/dL AST 30 (15-59) U/L ALT 38 (7-56) U/L Alkaline Phosphatase 95 (38-133) U/L Total Protein 7.0 (5.8-8.3) g/dL Albumin 2.8 L (3.0-4.8) g/dL Globulin 4.2 gm/dL Albumin/Globulin Ratio 0.7 L (1.1-1.8) Vancomycin Peak (30.0-40.0) ug/mL Vancomycin Trough (5.0-10.0) ug/mL 05/16/17 05/15/17 05/15/17 Range/Units 06:30 21:41 16:18 WBC 9.7 (4.5-11.0) 10^3/ul RBC 4.48 (3.5-6.1) 10^6/uL Hgb 12.3 L (14.0-18.0) gm/dL Hct 36.8 L (42.0-52.0) % MCV 82.1 (80.0-105.0) fL MCH 27.5 (25.0-35.0) pg MCHC 33.4 (31.0-37.0) g/dl RDW 14.6 H (11.5-14.5) % Plt Count 190 (120.0-450.0) 10^3/uL Gran % 68.3 H (50.0-68.0) % Lymph % (Auto) 18.2 L (22.0-35.0) % Barn[place] % (Auto) 13.1 H (1.0-6.0) % Eos % (Auto) 0.1 L (1.5-5.0) % Baso % (Auto) 0.3 (0.0-3.0) % Gran # 6.62 H (1.4-6.5) Lymph # 1.8 (1.2-3.4) Barn[place] # 1.3 H (0.1-0.6) Eos # 0.0 (0.0-0.7) Baso # 0.03 (0.0-2.0) K/mm3 Sodium (132-148) mmol/L Potassium (3.6-5.0) mmol/L Chloride (98-107) mmol/L Carbon Dioxide (21-33) mmol/L Anion Gap (10-20) BUN (7-21) mg/dL Creatinine (0.5-1.4) mg/dL Est GFR ( Amer) Est GFR (Non-Af Amer) POC Glucose (mg/dL) 303 H 317 H (65-110) mg/dL Random Glucose (70-110) mg/dL Calcium (8.4-10.5) mg/dL Phosphorus (2.5-4.5) mg/dL Magnesium (1.7-2.2) mg/dL Total Bilirubin (0.2-1.3) mg/dL AST (15-59) U/L ALT (7-56) U/L Alkaline Phosphatase (38-133) U/L Total Protein (5.8-8.3) g/dL Albumin (3.0-4.8) g/dL Globulin gm/dL Albumin/Globulin Ratio (1.1-1.8) Vancomycin Peak (30.0-40.0) ug/mL Vancomycin Trough (5.0-10.0) ug/mL 06/22/16 06/22/16 Range/Units 11:29 07:45 WBC (4.5-11.0) 10^3/ul RBC (3.5-6.1) 10^6/uL Hgb (14.0-18.0) gm/dL Hct (42.0-52.0) % MCV (80.0-105.0) fL MCH (25.0-35.0) pg MCHC (31.0-37.0) g/dl RDW (11.5-14.5) % Plt Count (120.0-450.0) 10^3/uL Gran % (50.0-68.0) % Lymph % (Auto) (22.0-35.0) % [place] % (Auto) (1.0-6.0) % Eos % (Auto) (1.5-5.0) % Baso % (Auto) (0.0-3.0) % Gran # (1.4-6.5) Lymph # (1.2-3.4) [place] # (0.1-0.6) Eos # (0.0-0.7) Baso # (0.0-2.0) K/mm3 Sodium (132-148) mmol/L Potassium (3.6-5.0) mmol/L Chloride (98-107) mmol/L Carbon Dioxide (21-33) mmol/L Anion Gap (10-20) BUN (7-21) mg/dL Creatinine (0.5-1.4) mg/dL Est GFR ( Amer) Est GFR (Non-Af Amer) POC Glucose (mg/dL) 318 H 280 H (65-110) mg/dL Random Glucose (70-110) mg/dL Calcium (8.4-10.5) mg/dL Phosphorus (2.5-4.5) mg/dL Magnesium (1.7-2.2) mg/dL Total Bilirubin (0.2-1.3) mg/dL AST (15-59) U/L ALT (7-56) U/L Alkaline Phosphatase (38-133) U/L Total Protein (5.8-8.3) g/dL Albumin (3.0-4.8) g/dL Globulin gm/dL Albumin/Globulin Ratio (1.1-1.8) Vancomycin Peak (30.0-40.0) ug/mL Vancomycin Trough (5.0-10.0) ug/mL Laboratory Results - last 24 hr 06/22/16 06/22/16 06/22/16 07:45 11:29 16:18 WBC RBC Hgb Hct MCV MCH MCHC RDW Plt Count Gran % Lymph % (Auto) [place] % (Auto) Eos % (Auto) Baso % (Auto) Gran # Lymph # Barn[place] # Eos # Baso # Sodium Potassium Chloride Carbon Dioxide Anion Gap BUN Creatinine Est GFR ( Amer) Est GFR (Non-Af Amer) POC Glucose (mg/dL) 280 H 318 H 317 H Random Glucose Calcium Phosphorus Magnesium Total Bilirubin AST ALT Alkaline Phosphatase Total Protein Albumin Globulin Albumin/Globulin Ratio Vancomycin Peak Vancomycin Trough 06/22/16 06/23/16 06/23/16 21:41 06:30 06:30 WBC 9.7 RBC 4.48 Hgb 12.3 L Hct 36.8 L MCV 82.1 MCH 27.5 MCHC 33.4 RDW 14.6 H Plt Count 190 Gran % 68.3 H Lymph % (Auto) 18.2 L [place] % (Auto) 13.1 H Eos % (Auto) 0.1 L Baso % (Auto) 0.3 Gran # 6.62 H Lymph # 1.8 Barnwell # 1.3 H Eos # 0.0 Baso # 0.03 Sodium 142 Potassium 3.5 L Chloride 108 H Carbon Dioxide 25 Anion Gap 13 BUN 10 Creatinine 1.0 Est GFR ( Amer) > 60 Est GFR (Non-Af Amer) > 60 POC Glucose (mg/dL) 303 H Random Glucose 84 Calcium 8.7 Phosphorus Magnesium Total Bilirubin 0.8 AST 30 ALT 38 Alkaline Phosphatase 95 Total Protein 7.0 Albumin 2.8 L Globulin 4.2 Albumin/Globulin Ratio 0.7 L Vancomycin Peak Vancomycin Trough 06/23/16 06/23/16 06/23/16 06:30 07:37 09:26 WBC RBC Hgb Hct MCV MCH MCHC RDW Plt Count Gran % Lymph % (Auto) [place] % (Auto) Eos % (Auto) Baso % (Auto) Gran # Lymph # [place] # Eos # Baso # Sodium Potassium Chloride Carbon Dioxide Anion Gap BUN Creatinine Est GFR ( Amer) Est GFR (Non-Af Amer) POC Glucose (mg/dL) 61 L 176 H Random Glucose Calcium Phosphorus 2.9 Magnesium 2.3 H Total Bilirubin AST ALT Alkaline Phosphatase Total Protein Albumin Globulin Albumin/Globulin Ratio Vancomycin Peak Vancomycin Trough 06/23/16 06/23/16 06/23/16 11:00 11:28 16:12 WBC RBC Hgb Hct MCV MCH MCHC RDW Plt Count Gran % Lymph % (Auto) [place] % (Auto) Eos % (Auto) Baso % (Auto) Gran # Lymph # [place] # Eos # Baso # Sodium Potassium Chloride Carbon Dioxide Anion Gap BUN Creatinine Est GFR ( Amer) Est GFR (Non-Af Amer) POC Glucose (mg/dL) 226 H 266 H Random Glucose Calcium Phosphorus Magnesium Total Bilirubin AST ALT Alkaline Phosphatase Total Protein Albumin Globulin Albumin/Globulin Ratio Vancomycin Peak Vancomycin Trough 13.9 H 06/23/16 06/23/16 19:30 19:30 WBC RBC Hgb Hct MCV MCH MCHC RDW Plt Count Gran % Lymph % (Auto) [place] % (Auto) Eos % (Auto) Baso % (Auto) Gran # Lymph # [place] # Eos # Baso # Sodium 135 Potassium 3.8 Chloride 104 Carbon Dioxide 21 Anion Gap 14 BUN 9 Creatinine 1.0 Est GFR ( Amer) > 60 Est GFR (Non-Af Amer) > 60 POC Glucose (mg/dL) Random Glucose 232 H Calcium 8.3 L Phosphorus Magnesium Total Bilirubin AST ALT Alkaline Phosphatase Total Protein Albumin Globulin Albumin/Globulin Ratio Vancomycin Peak 11.3 L Vancomycin Trough Critical Care Progress Note - Nutrition Nutrition: Nutrition Category Date Time Status Diabetic [Consistent Carbohydrate] [DIET] Diets 06/21/16 Lunch Ordered Addendum Addendum: 06/23/16 20:06 patient was seen, examined and discussed at bedside with Dr. Schmid. Her note reflects my exam, assessment and plan, except as below. Meds/Labs/ONE reviewe. 61 with resolved DKA and CAP with MSSA. not in respiratory or otherwise distress , hemodynamically stable. cont abx (on zosyn), ID follow up. had an episode of fever. ccm time 40 min
[2016-06-23] MEDS: Albuterol-Ipratrop 3 mg / 0.5 (3 ml) UD IH SCH ×2 (13:27→19:13)
[2016-06-23] MEDS ORDERED: Insulin Detemir 100 units/ml Vial (Levemir) SC SCH (14:22)
--- NOTE | 2016-06-23 14:57 | PN ---
DATE: 06/23/2016 In CCU 128, room 7. This is a 61-year-old male with recent uncontrolled type 2 insulin-requiring diabetes, presenting her e with diabetic ketoacidosis and dehydration and has since then improved clinically and metabolically as noted thereof. He was given intensive insulin therapy with an insulin drip infusion and vigorous IV hydration as noted. He also is being managed now for right upper lobe pneumonia with ongoing IV antibiotics as noted. 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 His latest chemistries include a BUN of 10, sodium 142, potassium 3.5, chloride 108, CO2 25, glucose 84 and creatinine 1.0. So at this time, we will continue the same basal and bolus insulin regimen to allow for dose equilibr ation and keep him on the Humalog given as 12 units subQ t.i.d. before meals as ordered. We will als o continue the Levemir given as 20 units subQ at bedtime daily as given. This was actually lowered f rom the overnight level of 30 units as ordered. We will titrate incrementally as indicated to optimi ze metabolic control. We will obtain serial chemistries and supplement accordingly as needed. We wi ll follow and advise accordingly. Sherri Hurst MD cc: [id number] TT: 06/23/2016 14:56:59 Confirmation # [id number] Dictation # [id number]
--- NOTE | 2016-06-23 15:51 | CP.PCM.PN ---
Subjective - Date & Time of Evaluation Date of Evaluation: 06/23/16 Time of Evaluation: 15:00 - Subjective Subjective: Infectious Disease Follow Up: June 23, 2016 61 yo male with presentation of 2 days of generalized weakness, polydysia, polyuria, hemoptysis, cough with green-colored sputum, intermittent confusion and some mild SOB. On CT scan, tree in bud formations seen. Patient placed under respiratory isolation for TB workup. The patient has no recent travel history. 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 Prior to that, he worked for a [employer] company for 7 years. Extensive pulmonary findings on CT scan. Case discussed with Dr. Olson. Culture of blood showing gram positive cocci on multiple cultures with FISH testing showing Staph Aureus. Vancomycin level at 13.4. Acid-Fast Bacilli Sputum evaluations x 3 are negative. Multiple cultures with MSSA growth. Patient feeling better overall. Objective - Vital Signs/Intake and Output Vital Signs (last 24 hours): Temp Pulse Resp BP Pulse Ox 99.4 F 92 H 35 H 170/89 H 100 06/23/16 04:00 06/23/16 13:30 06/23/16 06:00 06/23/16 10:33 06/23/16 06:00 Intake and Output: 06/23/16 06/23/16 06:59 18:59 Intake Total 1150 Output Total 1000 Balance 150 - Medications Medications: Current Medications Acetaminophen (Tylenol 325mg Tab) 650 mg PO Q6H PRN PRN Reason: Fever >100.4 F Last Admin: 06/23/16 12:35 Dose: 650 mg Albuterol/Ipratropium (Duoneb 3 Mg/0.5 Mg (3 Ml) Ud) 3 ml IH Q2H PRN PRN Reason: Shortness of Breath Albuterol/Ipratropium (Duoneb 3 Mg/0.5 Mg (3 Ml) Ud) 3 ml IH [id number] LYN Last Admin: 06/23/16 13:27 Dose: 3 ml Amlodipine Besylate (Norvasc) 10 mg PO DAILY LYN Last Admin: 06/23/16 10:32 Dose: 10 mg Clonidine HCl (Catapres) 0.1 mg PO TID PRN PRN Reason: Systolic Blood Pressure Last Admin: 06/21/16 10:00 Dose: 0.1 mg Guaifenesin (Robitussin) 100 mg PO Q4H PRN PRN Reason: Cough Last Admin: 06/23/16 10:35 Dose: 100 mg Heparin Sodium (Porcine) (Heparin) 5,000 units SC Q12 LYN PRN Reason: Protocol Last Admin: 06/23/16 10:30 Dose: 5,000 units Piperacillin Sod/Tazobactam Sod (Zosyn 3.375 In Ns 100ml) 100 mls @ 200 mls/hr IVPB Q6 LYN PRN Reason: Protocol Last Admin: 06/23/16 12:36 Dose: 200 mls/hr Dextrose (Dextrose 5% In Water 1000 Ml) 1,000 mls @ 75 mls/hr IV .[id number] LYN Insulin Detemir (Levemir) 20 unit SC HS LYN Insulin Human Lispro (Humalog) 12 units SC AC [facility] Last Admin: 06/23/16 08:21 Dose: Not Given Insulin Human Lispro (Humalog Low) 0 units SC ACHS LYN PRN Reason: Protocol Last Admin: 06/23/16 08:22 Dose: Not Given Lisinopril (Zestril) 30 mg PO DAILY [facility] Last Admin: 06/23/16 10:33 Dose: 30 mg Pantoprazole Sodium (Protonix Ec Tab) 40 mg PO ACB [facility] Last Admin: 06/23/16 08:53 Dose: 40 mg - Labs Labs: 06/23/16 06:30 06/23/16 06:30 PT 10.7 Seconds (9.9-11.8) 06/19/16 18:15 INR 0.99 (0.93-1.08) 06/19/16 18:15 APTT 30.8 Seconds (23.7-30.8) 06/19/16 18:15 - Constitutional Appears: Non-toxic, No Acute Distress, Chronically Ill - Head Exam Head Exam: ATRAUMATIC, NORMOCEPHALIC - Eye Exam Eye Exam: EOMI, PERRL Pupil Exam: NORMAL ACCOMODATION, PERRL - ENT Exam ENT Exam: Mucous Membranes Moist, Normal External Ear Exam, TM's Normal Bilaterally - Neck Exam Neck Exam: Full ROM, Normal Inspection - Respiratory Exam Respiratory Exam: Decreased Breath Sounds, Rhonchi, NORMAL BREATHING PATTERN. absent: Rales, Wheezes - Cardiovascular Exam Cardiovascular Exam: REGULAR RHYTHM, RRR, +S1, +S2 - GI/Abdominal Exam GI & Abdominal Exam: Soft, Normal Bowel Sounds. absent: Distended, Tenderness - Extremities Exam Extremities Exam: Full ROM, Normal Inspection - Neurological Exam Neurological Exam: Alert, Awake, CN II-XII Intact, Oriented x3 - Psychiatric Exam Psychiatric exam: Normal Affect, Normal Mood - Skin Skin Exam: Intact, Normal Color Assessment and Plan - Assessment and Plan (Free Text) Assessment: 61 yo male presenting with Uncontrolled DM and DKA. Incidental finding of pneumonic picture with a possibility for TB. The patient is under isolation for TB. Risks for TB appear to be low. The patient for acid-fast testing of the sputum x 3. Cannot rule out ALISON, fungal, or severe bacterial infections such as Staph Aureus or Strep Pneumonia. He is being treated for his DKA. On Vancomycin and Zosyn. gram positive cocci in blood cultures. May need to consider Teflaro instead to get better concentrations in the lung for MRSA. Supportive care. AFB x 3 negative. Multiple blood cultures with gram positive cocci. FISH indicating Staph Aureus. On Vancomycin and Zosyn currently. Would obtain Quantiferon for reference point... a positive Quantiferon would not impact management of the case at this time. This test would only indicate patient exposure during his lifetime. Would obtain echocardiogram as well. MSSA in multiple cultures. TTE does not show vegetations. The patient appears to be improving. Can switch Zosyn to Nafcillin or oxacillin. D/C vancomycin once fevers subside Thank you for allowing me to participate in the care of this patient, we will follow with you.
[2016-06-23] MEDS ORDERED: Vancomycin 500 mg Inj IVPB SCH (18:00)
[2016-06-23 19:56] LABS: BLOOD UREA NITROGEN 9 mg/dL (7-21); CALCIUM 8.3 mg/dL (8.4-10.5); CARBON DIOXIDE 21 mmol/L (21-33); CHLORIDE 104 mmol/L (98-107); GFR AFRICAN-AMERICAN > 60; GLUCOSE,RANDOM 232 mg/dL (70-110); POTASSIUM 3.8 mmol/L (3.6-5.0); SODIUM 135 mmol/L (132-148)
[2016-06-24] MEDS: Albuterol-Ipratrop 3 mg / 0.5 (3 ml) UD IH SCH ×4 (02:00→20:03)
[2016-06-24 07:41] LABS: ADD MANUAL DIFF? NO
[2016-06-24 07:54] LABS: BASO # 0.02 K/mm3 (0.0-2.0); BASO % 0.2 % (0.0-3.0); EOS % 0.3 % (1.5-5.0); GRAN # 5.44 (1.4-6.5); GRAN % 61.7 % (50.0-68.0); LYMPH # 1.8 (1.2-3.4); LYMPH % 20.4 % (22.0-35.0); MEAN CELL VOLUME 81.1 fL (80.0-105.0); MEAN CORPUSCULAR HEMOGLOBIN 27.3 pg (25.0-35.0); MEAN CORPUSCULAR HGB CONC 33.6 g/dl (31.0-37.0); MEAN PLATELET VOLUME 12.7 fl (7.0-11.0); MONO # 1.5 (0.1-0.6); MONO % 17.4 % (1.0-6.0); PLATELET COUNT 188 10^3/uL (120.0-450.0); RED CELL DISTRIBUTION WIDTH 14.4 % (11.5-14.5); WHITE BLOOD COUNT 8.8 10^3/ul (4.5-11.0)
[2016-06-24 08:06] LABS: ALB/GLOB RATIO 0.6 (1.1-1.8); ALKALINE PHOSPHATASE 94 U/L (38-133); ALT/SGPT 36 U/L (7-56); AST/SGOT 25 U/L (15-59); BILIRUBIN,TOTAL 0.9 mg/dL (0.2-1.3); BLOOD UREA NITROGEN 8 mg/dL (7-21); CALCIUM 8.3 mg/dL (8.4-10.5); CARBON DIOXIDE 27 mmol/L (21-33); CHLORIDE 104 mmol/L (98-107); GFR AFRICAN-AMERICAN > 60; GLUCOSE,RANDOM 240 mg/dL (70-110); POTASSIUM 3.4 mmol/L (3.6-5.0); SODIUM 137 mmol/L (132-148); TOTAL PROTEIN 6.5 g/dL (5.8-8.3)
[2016-06-24] MEDS: Insulin Lispro (humaLOG) LOW Coverage SC SCH ×4 (08:32→22:36)
[2016-06-24] MEDS: Insulin Lispro 1 UNITS/0.01 ML SC SCH ×3 (08:32→17:55)
[2016-06-24] MEDS: Pantoprazole 40 mg EC Tab PO SCH (08:32)
[2016-06-24] MEDS ORDERED: Potassium Chloride 20 mEq ER Tab PO ONE (09:20)
--- NOTE | 2016-06-24 09:53 | CP.PCM.PN ---
<Aaron Oneal - Last Filed: 06/24/16 17:14> Subjective - Date & Time of Evaluation Date of Evaluation: 06/24/16 Time of Evaluation: 07:30 - Subjective Subjective: 61 year old man with history of HTN and NIDDM who presented with 2 days of generalized weakness, polydysia, polyuria, hemoptysis, cough with green-colored sputum, intermittent confusion and some mild SOB, later found to be in DKA and have pneumonia. Today, he is feeling better and coughing up dark white/yellow colored sputum. He still complains of headache, fever, cough, and mild shortness of breath. He denies chest pain, nausea, vomiting, diarrhea, or any abdominal pain. Objective - Vital Signs/Intake and Output Vital Signs (last 24 hours): Temp Pulse Resp BP Pulse Ox 98.1 F 76 18 129/73 97 06/24/16 08:00 06/24/16 08:00 06/24/16 08:00 06/24/16 08:00 06/24/16 08:00 Intake and Output: 06/24/16 06/24/16 06:59 18:59 Intake Total 1260 Output Total 2500 Balance -1240 - Medications Medications: Current Medications Acetaminophen (Tylenol 325mg Tab) 650 mg PO Q6H PRN PRN Reason: Fever >100.4 F Last Admin: 06/24/16 00:15 Dose: 650 mg Albuterol/Ipratropium (Duoneb 3 Mg/0.5 Mg (3 Ml) Ud) 3 ml IH Q2H PRN PRN Reason: Shortness of Breath Last Admin: 06/23/16 23:50 Dose: 3 ml Albuterol/Ipratropium (Duoneb 3 Mg/0.5 Mg (3 Ml) Ud) 3 ml IH [id number] MARCELLUS Last Admin: 06/24/16 07:12 Dose: 3 ml Amlodipine Besylate (Norvasc) 10 mg PO DAILY MARCELLUS Last Admin: 06/23/16 10:32 Dose: 10 mg Clonidine HCl (Catapres) 0.1 mg PO TID PRN PRN Reason: Systolic Blood Pressure Last Admin: 06/24/16 00:15 Dose: 0.1 mg Guaifenesin (Robitussin) 100 mg PO Q4H PRN PRN Reason: Cough Last Admin: 06/23/16 10:35 Dose: 100 mg Heparin Sodium (Porcine) (Heparin) 5,000 units SC Q12 MARCELLUS PRN Reason: Protocol Last Admin: 06/23/16 22:52 Dose: 5,000 units Nafcillin Sodium 2 gm/ (Dextrose) 100 mls @ 100 mls/hr IVPB Q6 MARCELLUS PRN Reason: Protocol Last Admin: 06/24/16 05:30 Dose: 100 mls/hr Vancomycin HCl 1.5 gm/ Sodium (Chloride) 500 mls @ 167 mls/hr IVPB Q12 MARCELLUS PRN Reason: Protocol Last Admin: 06/23/16 22:44 Dose: 167 mls/hr Insulin Detemir (Levemir) 20 unit SC HS [facility] Last Admin: 06/23/16 22:53 Dose: 20 unit Insulin Human Lispro (Humalog) 12 units SC AC [facility] Last Admin: 06/24/16 08:32 Dose: 12 units Insulin Human Lispro (Humalog Low) 0 units SC ACHS MARCELLUS PRN Reason: Protocol Last Admin: 06/24/16 08:32 Dose: Not Given Lisinopril (Zestril) 30 mg PO DAILY [facility] Last Admin: 06/23/16 10:33 Dose: 30 mg Pantoprazole Sodium (Protonix Ec Tab) 40 mg PO ACB [facility] Last Admin: 06/24/16 08:32 Dose: 40 mg - Labs Labs: 06/24/16 07:00 06/24/16 07:00 PT 10.7 Seconds (9.9-11.8) 06/19/16 18:15 INR 0.99 (0.93-1.08) 06/19/16 18:15 APTT 30.8 Seconds (23.7-30.8) 06/19/16 18:15 - Constitutional Appears: Non-toxic, No Acute Distress - Head Exam Head Exam: ATRAUMATIC, NORMOCEPHALIC - Eye Exam Eye Exam: EOMI - ENT Exam ENT Exam: Mucous Membranes Moist - Respiratory Exam Respiratory Exam: Rhonchi, NORMAL BREATHING PATTERN - Cardiovascular Exam Cardiovascular Exam: REGULAR RHYTHM, RRR, +S1, +S2. absent: JVD - GI/Abdominal Exam GI & Abdominal Exam: Soft, Tenderness, Normal Bowel Sounds - Extremities Exam Extremities Exam: absent: Joint Swelling, Pedal Edema - Back Exam Back Exam: tenderness. absent: rash noted - Neurological Exam Neurological Exam: Alert, Awake, Oriented x3 - Psychiatric Exam Psychiatric exam: Flat Affect, Normal Mood - Skin Skin Exam: Dry, Intact, Normal Color, Warm Assessment and Plan - Assessment and Plan (Free Text) Assessment: The patient is a 61 year old man with history of HTN and NIDDM who is being admitted to the ICU for DKA, hemoptysis and sepsis 2/2 PNA. Plan: 1. Diabetic Ketoacidosis (without coma): resolving -due to medication non-compliance -HgA1c 16.9 -Endo consult - Dr. Hurst -change to ISS -Levemir 24u SC HS -Humalog 14u AC -Lispro Low SS -Diabetic Diet 2. Sepsis 2/2 Pneumonia: resolving -empiric IV antibiotics -procalcitonin 20.42 -lactic acid trending down -HIV non-reactive -ID consult Dr. Hankins - will follow ID recs -acid-fast testing of the sputum x 4 -MSSA per cultures 06/19, 06/21 -On Vancomycin and Nafcilln 2gm -Cultures from 06/22 show no growth to after 48hr -ECHO- please see full report -LV normal size and function -mild concentric LV hypertrophy -no report of vegetations 2. Pneumonia: -Chest CT shows mutifocal PNA w/ Tree/ bed changes. Unclear if the tree/bud changes were present nursing home and not the new infiltrates are superimposed. -changed to Vancomycin and Nafcillin IV -blood cultures - grew MSSA -urine cultures - pending -Duonebs q6 marcellus -Duonebs q2 prn 3. Acute Hemoptysis: resolved -ddx: TB vs malignancy -will rule out TB with three sets of sputum AFB samples -avoid anticoagulation -given infiltrates on CXR, absence of respiratory distress and a normal O2 sat, suspicion for acute PE is low -however, if pt's symptoms deteriorate despite IV antibiotics, will then consider a CT-PA 4. Acute Kidney Injury: resolved -likely pre-renal etiology due to intravascular depletion -serum Cr expected to correct after aggressive IVF's -Cr dropped to 1.1 -renally dose all meds until serum Cr corrects 5. Poorly Controlled Hypertension: resolving -due to medication non-compliance -Norvasc 10mg po daily -Clonidine 0.1mg po TID PRN SBP>165 -Lisinopril 30mg PO daily DVT PPx: Heparin SQ tid GI PPx: Protonix <Rangasamy,Ajantha - Last Filed: 06/24/16 17:24> Objective - Vital Signs/Intake and Output Vital Signs (last 24 hours): Temp Pulse Resp BP Pulse Ox 102.4 F H 92 H 20 146/79 95 06/24/16 16:00 06/24/16 16:00 06/24/16 16:00 06/24/16 16:00 06/24/16 16:00 Intake and Output: 06/24/16 06/24/16 06:59 18:59 Intake Total 1260 860 Output Total 2500 800 Balance -1240 60 - Medications Medications: Current Medications Acetaminophen (Tylenol 325mg Tab) 650 mg PO Q6H PRN PRN Reason: Fever >100.4 F Last Admin: 06/24/16 00:15 Dose: 650 mg Albuterol/Ipratropium (Duoneb 3 Mg/0.5 Mg (3 Ml) Ud) 3 ml IH Q2H PRN PRN Reason: Shortness of Breath Last Admin: 06/23/16 23:50 Dose: 3 ml Albuterol/Ipratropium (Duoneb 3 Mg/0.5 Mg (3 Ml) Ud) 3 ml IH [id number] [facility] Last Admin: 06/24/16 13:35 Dose: 3 ml Amlodipine Besylate (Norvasc) 10 mg PO DAILY [facility] Last Admin: 06/24/16 10:16 Dose: 10 mg Clonidine HCl (Catapres) 0.1 mg PO TID PRN PRN Reason: Systolic Blood Pressure Last Admin: 06/24/16 00:15 Dose: 0.1 mg Guaifenesin (Robitussin) 100 mg PO Q4H PRN PRN Reason: Cough Last Admin: 06/23/16 10:35 Dose: 100 mg Heparin Sodium (Porcine) (Heparin) 5,000 units SC Q12 MARCELLUS PRN Reason: Protocol Last Admin: 06/24/16 10:18 Dose: 5,000 units Nafcillin Sodium 2 gm/ (Dextrose) 100 mls @ 100 mls/hr IVPB Q6 MARCELLUS PRN Reason: Protocol Last Admin: 06/24/16 13:00 Dose: 100 mls/hr Vancomycin HCl 1.5 gm/ Sodium (Chloride) 500 mls @ 167 mls/hr IVPB Q12 MARCELLUS PRN Reason: Protocol Last Admin: 06/24/16 10:19 Dose: 167 mls/hr Insulin Detemir (Levemir) 24 unit SC HS MARCELLUS Insulin Human Lispro (Humalog Low) 0 units SC ACHS MARCELLUS PRN Reason: Protocol Last Admin: 06/24/16 11:31 Dose: Not Given Insulin Human Lispro (Humalog) 14 units SC AC [facility]CELLUS Lisinopril (Zestril) 30 mg PO DAILY MARCELLUS Last Admin: 06/24/16 10:16 Dose: 30 mg Pantoprazole Sodium (Protonix Ec Tab) 40 mg PO ACB [facility] Last Admin: 06/24/16 08:32 Dose: 40 mg - Labs Labs: 06/24/16 07:00 06/24/16 07:00 PT 10.7 Seconds (9.9-11.8) 06/19/16 18:15 INR 0.99 (0.93-1.08) 06/19/16 18:15 APTT 30.8 Seconds (23.7-30.8) 06/19/16 18:15 Attending/Attestation - Attestation I have personally seen and examined this patient.: Yes I have fully participated in the care of the patient.: Yes I have reviewed all pertinent clinical information, including history, physical exam and plan: Yes Notes (Text): 06/24/16 17:22 attending note; Patient seen and examined with resident. This is a 61 year old man with history of HTN and NIDDM who presented with generalized weakness, polydysia, polyuria, hemoptysis, cough with greenish/ brown colored sputum, intermittent confusion and found to have DKA, hemoptysis and sepsis due to a multifocal pneumoni. patient was also found to have MSSA bacteremia. patient had MAXIMUM TEMPERE of [address] chest showed multifocal pneumonia with tree in bud pattern. AFB x 3 is negative. continue vancomycin and naficillin. case discussed with ID in detail. chest x-ray ordered. Repeat blood culture on 06/22 is positive. TTE showed no vegetations. Currently patient is on Levemir. Follow up with endocrinology . Diabetic nurse educator evaluation requested. Dietary education given. the diagnosis and follow-up plan discussed with patient and patient's in detail. 06/24/16 17:23
[2016-06-24] MEDS: Vancomycin 1.5 GM in Sodium Chloride 0.9% 500 ML IVPB SCH ×2 (10:19→22:34)
--- NOTE | 2016-06-24 15:36 | CP.PCM.PN ---
Subjective - Date & Time of Evaluation Date of Evaluation: 06/24/16 Time of Evaluation: 14:15 - Subjective Subjective: Infectious Disease Follow Up: June 24, 2016 61 yo male with presentation of 2 days of generalized weakness, polydysia, polyuria, hemoptysis, cough with green-colored sputum, intermittent confusion and some mild SOB. On CT scan, tree in bud formations seen. Patient placed under respiratory isolation for TB workup. The patient has no recent travel history. 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 Prior to that, he worked for a [employer] company for 7 years. Extensive pulmonary findings on CT scan. Case discussed with Dr. Moreno. Culture of blood showing gram positive cocci on multiple cultures with FISH testing showing Staph Aureus. Vancomycin level at 13.4. Acid-Fast Bacilli Sputum evaluations x 3 are negative. Multiple cultures with MSSA growth. Patient feeling better overall. Still with fevers up to 101.1 F in the past 24 hours. Recheck chest X-ray. Currently on Nafcillin and Vancomycin. Recheck Vancomycin level. Objective - Vital Signs/Intake and Output Vital Signs (last 24 hours): Temp Pulse Resp BP Pulse Ox 98.1 F 76 18 129/73 97 06/24/16 08:00 06/24/16 10:16 06/24/16 08:00 06/24/16 10:16 06/24/16 08:00 Intake and Output: 06/24/16 06/24/16 06:59 18:59 Intake Total 1260 860 Output Total 2500 800 Balance -1240 60 - Medications Medications: Current Medications Acetaminophen (Tylenol 325mg Tab) 650 mg PO Q6H PRN PRN Reason: Fever >100.4 F Last Admin: 06/24/16 00:15 Dose: 650 mg Albuterol/Ipratropium (Duoneb 3 Mg/0.5 Mg (3 Ml) Ud) 3 ml IH Q2H PRN PRN Reason: Shortness of Breath Last Admin: 06/23/16 23:50 Dose: 3 ml Albuterol/Ipratropium (Duoneb 3 Mg/0.5 Mg (3 Ml) Ud) 3 ml IH [id number] LYN Last Admin: 06/24/16 13:35 Dose: 3 ml Amlodipine Besylate (Norvasc) 10 mg PO DAILY [facility] Last Admin: 06/24/16 10:16 Dose: 10 mg Clonidine HCl (Catapres) 0.1 mg PO TID PRN PRN Reason: Systolic Blood Pressure Last Admin: 06/24/16 00:15 Dose: 0.1 mg Guaifenesin (Robitussin) 100 mg PO Q4H PRN PRN Reason: Cough Last Admin: 06/23/16 10:35 Dose: 100 mg Heparin Sodium (Porcine) (Heparin) 5,000 units SC Q12 LYN PRN Reason: Protocol Last Admin: 06/24/16 10:18 Dose: 5,000 units Nafcillin Sodium 2 gm/ (Dextrose) 100 mls @ 100 mls/hr IVPB Q6 LYN PRN Reason: Protocol Last Admin: 06/24/16 13:00 Dose: 100 mls/hr Vancomycin HCl 1.5 gm/ Sodium (Chloride) 500 mls @ 167 mls/hr IVPB Q12 LYN PRN Reason: Protocol Last Admin: 06/24/16 10:19 Dose: 167 mls/hr Insulin Detemir (Levemir) 24 unit SC HS [facility] Insulin Human Lispro (Humalog Low) 0 units SC ACHS LYN PRN Reason: Protocol Last Admin: 06/24/16 11:31 Dose: Not Given Insulin Human Lispro (Humalog) 14 units SC AC [facility] Lisinopril (Zestril) 30 mg PO DAILY [facility] Last Admin: 06/24/16 10:16 Dose: 30 mg Pantoprazole Sodium (Protonix Ec Tab) 40 mg PO ACB [facility] Last Admin: 06/24/16 08:32 Dose: 40 mg - Labs Labs: 06/24/16 07:00 06/24/16 07:00 PT 10.7 Seconds (9.9-11.8) 06/19/16 18:15 INR 0.99 (0.93-1.08) 06/19/16 18:15 APTT 30.8 Seconds (23.7-30.8) 06/19/16 18:15 - Constitutional Appears: Non-toxic, No Acute Distress, Chronically Ill - Head Exam Head Exam: ATRAUMATIC, NORMOCEPHALIC - Eye Exam Eye Exam: EOMI, PERRL Pupil Exam: NORMAL ACCOMODATION, PERRL - ENT Exam ENT Exam: Mucous Membranes Moist, Normal External Ear Exam, TM's Normal Bilaterally - Neck Exam Neck Exam: Full ROM, Normal Inspection - Respiratory Exam Respiratory Exam: Decreased Breath Sounds, Rhonchi, NORMAL BREATHING PATTERN. absent: Rales, Wheezes - Cardiovascular Exam Cardiovascular Exam: REGULAR RHYTHM, RRR, +S1, +S2 - GI/Abdominal Exam GI & Abdominal Exam: Soft, Normal Bowel Sounds. absent: Distended, Tenderness - Extremities Exam Extremities Exam: Full ROM, Normal Inspection - Neurological Exam Neurological Exam: Alert, Awake, CN II-XII Intact, Oriented x3 - Psychiatric Exam Psychiatric exam: Normal Affect, Normal Mood - Skin Skin Exam: Intact, Normal Color Assessment and Plan - Assessment and Plan (Free Text) Assessment: 61 yo male presenting with Uncontrolled DM and DKA. Incidental finding of pneumonic picture with a possibility for TB. The patient is under isolation for TB. Risks for TB appear to be low. The patient for acid-fast testing of the sputum x 3. Cannot rule out ALISON, fungal, or severe bacterial infections such as Staph Aureus or Strep Pneumonia. He is being treated for his DKA. On Vancomycin and Zosyn. gram positive cocci in blood cultures. May need to consider Teflaro instead to get better concentrations in the lung for MRSA. Supportive care. AFB x 3 negative. Multiple blood cultures with gram positive cocci. FISH indicating Staph Aureus. On Vancomycin and Zosyn currently. Would obtain Quantiferon for reference point... a positive Quantiferon would not impact management of the case at this time. This test would only indicate patient exposure during his lifetime. Would obtain echocardiogram as well. MSSA in multiple cultures. TTE does not show vegetations. The patient appears to be improving. Switched Zosyn to Nafcillin yesterday. D/C vancomycin once fevers subside. Patient still with fevers up to 101.1 F in past 24 hours. Thank you for allowing me to participate in the care of this patient, we will follow with you.
--- NOTE | 2016-06-24 16:40 | PN ---
DATE: 06/24/2016 ROOM: 569 HISTORY OF PRESENT ILLNESS: This is a 61-year-old male with recent uncontrolled type 2 insulin-requiring diabetes, now being foll owed closely for metabolic management. His glycemic levels are fluctuating, but improved, and the la test glucose levels today have ranged from 241-244 and 297 mg/dL. His latest chemistries include a B UN of 8, sodium 137, potassium 3.4, chloride 104, CO2 of 27, glucose 240 and creatinine 0.9. So, at this time, we will once again optimize his metabolic control by titrating up his basal and bolus insu mehreen regimen as given. We will increase the Humalog to 14 units subQ t.i.d. before meals to start at dinnertime today as ordered. We will also increase the basal insulin with Levemir to be given as 24 units subQ at bedtime daily to start tonight. We will titrate incrementally as indicated to optimize metabolic control. We will also continue the low-dose correction scale using Humalog insulin as giv en to obviate hypoglycemia. We will obtain serial chemistries and supplement accordingly as needed. We will follow. Sherri Hurst MD cc: [id number] TT: 06/24/2016 16:40:17 Confirmation # [id number] Dictation # [id number] chio
--- NOTE | 2016-06-24 18:31 | CP.PCM.PN ---
<Anahi Schmid - Last Filed: 06/24/16 20:02> Subjective - Date & Time of Evaluation Date of Evaluation: 06/24/16 Time of Evaluation: 18:00 - Subjective Subjective: Pulmonary progress note for Dr. Rubio Pt s/e at bedside on med/surg floor. Patient had a fever of 101.1 overnight that resoved with tylenol and 102.4 @1630. Patient reports persistent cough productive of thick yellow/white sputum without blood and dyspnea when talking. Also complains of persistent bitemporal headache with coughing and persistent weakness when ambulating. Denies any chest pain, sore throat, nausea, vomiting, dysuria, leg edema, or any other symptoms. Objective - Vital Signs/Intake and Output Vital Signs (last 24 hours): Temp Pulse Resp BP Pulse Ox 102.4 F H 92 H 20 146/79 95 06/24/16 17:54 06/24/16 16:00 06/24/16 16:00 06/24/16 16:00 06/24/16 16:00 Intake and Output: 06/24/16 06/24/16 06:59 18:59 Intake Total 1260 860 Output Total 2500 800 Balance -1240 60 - Medications Medications: Current Medications Acetaminophen (Tylenol 325mg Tab) 650 mg PO Q6H PRN PRN Reason: Fever >100.4 F Last Admin: 06/24/16 17:54 Dose: 650 mg Albuterol/Ipratropium (Duoneb 3 Mg/0.5 Mg (3 Ml) Ud) 3 ml IH Q2H PRN PRN Reason: Shortness of Breath Last Admin: 06/23/16 23:50 Dose: 3 ml Albuterol/Ipratropium (Duoneb 3 Mg/0.5 Mg (3 Ml) Ud) 3 ml IH [id number] LYN Last Admin: 06/24/16 13:35 Dose: 3 ml Amlodipine Besylate (Norvasc) 10 mg PO DAILY LYN Last Admin: 06/24/16 10:16 Dose: 10 mg Clonidine HCl (Catapres) 0.1 mg PO TID PRN PRN Reason: Systolic Blood Pressure Last Admin: 06/24/16 00:15 Dose: 0.1 mg Guaifenesin (Robitussin) 100 mg PO Q4H PRN PRN Reason: Cough Last Admin: 06/23/16 10:35 Dose: 100 mg Heparin Sodium (Porcine) (Heparin) 5,000 units SC Q12 LYN PRN Reason: Protocol Last Admin: 06/24/16 10:18 Dose: 5,000 units Nafcillin Sodium 2 gm/ (Dextrose) 100 mls @ 100 mls/hr IVPB Q6 LYN PRN Reason: Protocol Last Admin: 06/24/16 13:00 Dose: 100 mls/hr Vancomycin HCl 1.5 gm/ Sodium (Chloride) 500 mls @ 167 mls/hr IVPB Q12 LYN PRN Reason: Protocol Last Admin: 06/24/16 10:19 Dose: 167 mls/hr Insulin Detemir (Levemir) 24 unit SC HS LYN Insulin Human Lispro (Humalog Low) 0 units SC ACHS LYN PRN Reason: Protocol Last Admin: 06/24/16 17:27 Dose: Not Given Insulin Human Lispro (Humalog) 14 units SC AC [facility] Last Admin: 06/24/16 17:55 Dose: 14 units Lisinopril (Zestril) 30 mg PO DAILY [facility] Last Admin: 06/24/16 10:16 Dose: 30 mg Pantoprazole Sodium (Protonix Ec Tab) 40 mg PO ACB [facility] Last Admin: 06/24/16 08:32 Dose: 40 mg - Labs Labs: 06/24/16 07:00 06/24/16 07:00 PT 10.7 Seconds (9.9-11.8) 06/19/16 18:15 INR 0.99 (0.93-1.08) 06/19/16 18:15 APTT 30.8 Seconds (23.7-30.8) 06/19/16 18:15 - Constitutional Appears: Well, Non-toxic, No Acute Distress - Head Exam Head Exam: ATRAUMATIC, NORMOCEPHALIC - Eye Exam Eye Exam: EOMI, Normal appearance, PERRL. absent: Conjunctival injection, Scleral icterus - ENT Exam ENT Exam: Mucous Membranes Moist Additional comments: Palate non-erythematous, with numerous small white well circumscribe exudates on the palate. No visible exudates or erythema of the pharynx or tongue. - Respiratory Exam Respiratory Exam: Decreased Breath Sounds (on the RLL), Clear to Ausculation Bilateral, NORMAL BREATHING PATTERN. absent: Accessory Muscle Use, Chest Wall Tenderness, Rales, Rhonchi, Wheezes - Cardiovascular Exam Cardiovascular Exam: RRR, +S1, +S2. absent: Murmur - GI/Abdominal Exam GI & Abdominal Exam: Soft, Normal Bowel Sounds. absent: Distended, Tenderness, Rebound - Extremities Exam Extremities Exam: Normal Capillary Refill, Normal Inspection. absent: Calf Tenderness, Pedal Edema, Tenderness - Neurological Exam Neurological Exam: Alert, Awake, CN II-XII Intact, Oriented x3 - Psychiatric Exam Psychiatric exam: Normal Affect, Normal Mood. absent: Agitated, Anxious - Skin Skin Exam: Dry, Intact, Normal Color Assessment and Plan - Assessment and Plan (Free Text) Assessment: 61M with PMH of NIDDM, HTN, and former 20pack year smoking history quit 20 years ago with DKA and dyspnea/hemoptysis with multifocal consolidation on CXR Cardio: No complaints, HTN with SBP of 175 @0015 resolved with 0.1mg Clonidine x1 RRR, S1/S2, no murmurs Continue to monitor vitals Continue Norvasc, Lisinopril, and PRN clonidine for hypertension Pulm: Given multifocal nature of the infiltrate, must consider septic emboli as a differential Persistent productive cough, no hemoptysis vitals stable, no hypoxia on 2L NC TTE 06/20: LVEF wnl, no evidence of endocarditis, trace TR, pulmonic valve not well visualized CXR 2 views: official report pending slight improvement in multifocal R lung infiltrate Continue to monitor vitals Continue abx per ID, repeat blood cultures F/u CXR official report, recommend JANEL to rule out cardiac vegetation Supplement O2 to keep SaO2>95% ID: Temp 101.1 overnight, 102.4 @1640 normocardic, normotensive, numerous small white exudates on patient's palate, decreased lung sounds on RLL CXR: 2 views: official report pending but looks slightly improved infitrates since 06/20 portable CXR AFB: negativex3, Blood: 06/19: MSSAx2, 06/20: MSSAx2, 06/22: MSSAx1, Sputum 06/21: MSSA HIV negative procalcitonin 06/23: 1.92 down from 06/19: 20.42 Vanc trough 13.9, peak low: 11.3 Mycobacterium culture pending Continue to monitor vitals Continue Vancomycin and nafcillin per ID F/U cultures PPX: protonix, SCD's Patient seen and discussed at length with Dr. Ramiro Schmid, PGY1 <Tripp Rubio - Last Filed: 06/29/16 16:12> Objective - Vital Signs/Intake and Output Vital Signs (last 24 hours): Temp Pulse Resp BP Pulse Ox 99.8 F H 95 H 20 155/73 H 97 06/29/16 07:30 06/29/16 09:33 06/29/16 07:30 06/29/16 09:33 06/29/16 07:30 Intake and Output: 06/29/16 06/29/16 06:59 18:59 Intake Total 860 520 Output Total 2700 Balance -1840 520 - Medications Medications: Current Medications Acetaminophen (Tylenol 325mg Tab) 650 mg PO Q8 PRN PRN Reason: Fever >100.4 F Last Admin: 06/28/16 17:05 Dose: 650 mg Albuterol/Ipratropium (Duoneb 3 Mg/0.5 Mg (3 Ml) Ud) 3 ml IH Q2H PRN PRN Reason: Shortness of Breath Last Admin: 06/23/16 23:50 Dose: 3 ml Albuterol/Ipratropium (Duoneb 3 Mg/0.5 Mg (3 Ml) Ud) 3 ml IH [id number] [facility] Last Admin: 06/29/16 07:35 Dose: Not Given Amlodipine Besylate (Norvasc) 10 mg PO DAILY [facility] Last Admin: 06/29/16 09:33 Dose: 10 mg Clonidine HCl (Catapres) 0.1 mg PO TID PRN PRN Reason: Systolic Blood Pressure Last Admin: 06/26/16 16:25 Dose: 0.1 mg Guaifenesin (Robitussin) 100 mg PO Q4H PRN PRN Reason: Cough Last Admin: 06/25/16 20:23 Dose: 100 mg Heparin Sodium (Porcine) (Heparin) 5,000 units SC Q12 LYN PRN Reason: Protocol Last Admin: 06/29/16 09:27 Dose: 5,000 units Sodium Chloride (Sodium Chloride 0.9%) 1,000 mls @ 100 mls/hr IV .Q10H [facility] Last Admin: 06/29/16 09:34 Dose: 100 mls/hr Clindamycin Phosphate 600 mg/ (Sodium Chloride) 54 mls @ 102 mls/hr IVPB Q8 LYN PRN Reason: Protocol Last Admin: 06/29/16 13:26 Dose: 102 mls/hr Linezolid (Zyvox 600mg/300ml D5w) 600 mg in 300 mls @ 200 mls/hr IVPB Q12 LYN PRN Reason: Protocol Last Admin: 06/29/16 09:27 Dose: 200 mls/hr Nafcillin Sodium 2 gm/ Sodium (Chloride) 100 mls @ 100 mls/hr IVPB Q6 LYN PRN Reason: Protocol Last Admin: 06/29/16 12:32 Dose: 100 mls/hr Ibuprofen (Motrin Tab) 600 mg PO Q8 PRN PRN Reason: Fever >100.4 F Last Admin: 06/27/16 23:32 Dose: 600 mg Insulin Detemir (Levemir) 20 unit SC HS [facility] Last Admin: 06/28/16 22:21 Dose: 20 unit Insulin Human Lispro (Humalog Low) 0 units SC ACHS LYN PRN Reason: Protocol Last Admin: 06/29/16 12:32 Dose: Not Given Insulin Human Lispro (Humalog) 10 units SC AC [facility] Last Admin: 06/29/16 12:28 Dose: 10 units Lisinopril (Zestril) 30 mg PO DAILY [facility] Last Admin: 06/29/16 09:33 Dose: 30 mg Morphine Sulfate (Morphine) 1 mg IVP Q4H PRN PRN Reason: Pain, moderate (4-7) Pantoprazole Sodium (Protonix Ec Tab) 40 mg PO ACB [facility] Last Admin: 06/29/16 07:58 Dose: 40 mg - Labs Labs: 06/29/16 07:10 06/29/16 07:10 PT 10.7 Seconds (9.9-11.8) 06/19/16 18:15 INR 0.99 (0.93-1.08) 06/19/16 18:15 APTT 30.8 Seconds (23.7-30.8) 06/19/16 18:15 Addendum Addendum: 06/29/16 16:11 patient was seen, examined and discussed with Dr. Schmid. Her note reflects my exam, assessment and plan. Meds/Labs/ONE reviewed. 61 yo male with recurrent fever and MSSA bacteremia. JANEL and CT spine/abdo/ pelvis to rule out IE or abscess or OM. ccm time 40 min
[2016-06-24] MEDS: Insulin Detemir 100 units/ml Vial (Levemir) SC SCH (22:39)
[2016-06-25] MEDS: Albuterol-Ipratrop 3 mg / 0.5 (3 ml) UD IH SCH ×2 (01:00→20:23)
--- NOTE | 2016-06-25 09:16 | RAD ---
HISTORY: pneumonia - mssa COMPARISON: 06/20/2016 TECHNIQUE: Chest PA and lateral FINDINGS: LUNGS: Right-sided infiltrates are seen slightly increased in the right lower lobe. Right upper lobe is unchanged. Left lung remains clear PLEURA: No significant pleural effusion identified. No pneumothorax apparent. CARDIOVASCULAR: Normal. OSSEOUS STRUCTURES: No significant abnormalities. VISUALIZED UPPER ABDOMEN: Normal. OTHER FINDINGS: None. IMPRESSION: Right-sided infiltrates are seen slightly increased in the right lower lobe. Right upper lobe is unchanged. Left lung remains clear
[2016-06-25] MEDS ORDERED: Potassium Chloride 40 mEq/30 ml LIQ UD PO ONE (14:00)
[2016-06-25] MEDS ORDERED: Potassium Chloride 20 mEq ER Tab PO ONE (16:09)
--- NOTE | 2016-06-25 19:22 | CP.PCM.PCO ---
Physician Communication Note - Physician Communication Note Physician Communication Note: written note in chart for today due to technical difficulties with EMR
[2016-06-25] MEDS: guaiFENesin 100 mg/5 ml Syrup UD PO PRN (20:23)
[2016-06-25] MEDS: Insulin Lispro (humaLOG) LOW Coverage SC SCH (21:46)
--- NOTE | 2016-06-25 21:56 | PN ---
DATE: 06/25/2016 ROOM: 569 This is a 61-year-old male with recent uncontrolled type 2 insulin-requiring diabetes, presenting her e with diabetic ketoacidosis and dehydration and has since then improved clinically and metabolically as noted thereof. His glycemic levels today have ranged from 124 to 142 and 241 mg/dL. His latest chemistries include a BUN of 8, sodium 137, potassium 3.4, chloride 104, CO2 27, glucose 240 and crea tinine 0.9. So, at this time, we actually continue the same basal and bolus insulin regimen to allow for dose equilibration and keep him on the Humalog given as 14 units subQ t.i.d. before meals as ord ered. We will also continue the basal insulin given as Levemir at 24 units subQ at bedtime daily to start tonight. We will continue the low-dose correction scale using Humalog insulin as given. We wi ll obtain serial chemistries and supplement accordingly as needed. We will follow. Sherri Hurst MD cc: [id number] TT: 06/25/2016 21:55:36 Confirmation # [id number] Dictation # [id number] jn
[2016-06-25] MEDS: Vancomycin 1.5 GM in Sodium Chloride 0.9% 500 ML IVPB SCH (22:38)
[2016-06-26] MEDS: Albuterol-Ipratrop 3 mg / 0.5 (3 ml) UD IH SCH ×4 (02:45→20:13)
[2016-06-26] MEDS: Sodium Chloride 0.9% 1,000 ML IV SCH ×3 (05:41→22:07)
[2016-06-26] MEDS ORDERED: Barium Sulfate Susp 2.1% w/v, 2.0% w/w 450 mL Bottle PO ONE (07:16)
[2016-06-26 07:21] LABS: HEMATOCRIT 31.3 % (42.0-52.0); MEAN CELL VOLUME 83.2 fL (80.0-105.0); MEAN CORPUSCULAR HEMOGLOBIN 27.4 pg (25.0-35.0); MEAN CORPUSCULAR HGB CONC 32.9 g/dl (31.0-37.0); MEAN PLATELET VOLUME 12.1 fl (7.0-11.0); RED CELL DISTRIBUTION WIDTH 14.5 % (11.5-14.5); WHITE BLOOD COUNT 13.1 10^3/ul (4.5-11.0)
[2016-06-26 07:52] LABS: ALB/GLOB RATIO 0.7 (1.1-1.8); ALKALINE PHOSPHATASE 86 U/L (38-133); ALT/SGPT 41 U/L (7-56); AST/SGOT 40 U/L (15-59); BILIRUBIN,TOTAL 0.6 mg/dL (0.2-1.3); BLOOD UREA NITROGEN 7 mg/dL (7-21); CARBON DIOXIDE 29 mmol/L (21-33); CHLORIDE 104 mmol/L (98-107); GFR AFRICAN-AMERICAN > 60; GLUCOSE,RANDOM 144 mg/dL (70-110); POTASSIUM 3.2 mmol/L (3.6-5.0); SODIUM 140 mmol/L (132-148); TOTAL PROTEIN 6.3 g/dL (5.8-8.3)
[2016-06-26] MEDS: Pantoprazole 40 mg EC Tab PO SCH (07:52)
[2016-06-26] MEDS: Insulin Lispro 1 UNITS/0.01 ML SC SCH ×3 (07:52→17:55)
[2016-06-26] MEDS: Insulin Lispro (humaLOG) LOW Coverage SC SCH ×4 (08:00→22:23)
--- NOTE | 2016-06-26 09:48 | CP.PCM.PN ---
<Aaron Oneal - Last Filed: 06/26/16 21:19> Subjective - Date & Time of Evaluation Date of Evaluation: 06/26/16 Time of Evaluation: 08:00 - Subjective Subjective: 61 year old man with history of HTN and NIDDM who presented with 2 days of generalized weakness, polydysia, polyuria, hemoptysis, cough with green-colored sputum, intermittent confusion and some mild SOB, later found to be in DKA and sepsis 2/2 pneumonia. Today, he is feeling better, but still complains of slight headache when he coughs and mild shortness of breath. He also reported having black stools. He denies fever, chills, chest pain, nausea, vomiting, diarrhea, or any abdominal pain. Objective - Vital Signs/Intake and Output Vital Signs (last 24 hours): Temp Pulse Resp BP Pulse Ox 99.5 F 91 H 22 132/76 96 06/26/16 07:30 06/26/16 09:24 06/26/16 07:30 06/26/16 09:24 06/26/16 07:30 Intake and Output: 06/26/16 06/26/16 06:59 18:59 Intake Total 1520 Output Total 2900 Balance -1380 - Medications Medications: Current Medications Acetaminophen (Tylenol 325mg Tab) 650 mg PO Q6H PRN PRN Reason: Fever >100.4 F Last Admin: 06/24/16 17:54 Dose: 650 mg Acetylcysteine (Acetylcysteine 20%) 3 ml PO BID [facility] Stop: 06/28/16 10:01 Albuterol/Ipratropium (Duoneb 3 Mg/0.5 Mg (3 Ml) Ud) 3 ml IH Q2H PRN PRN Reason: Shortness of Breath Last Admin: 06/23/16 23:50 Dose: 3 ml Albuterol/Ipratropium (Duoneb 3 Mg/0.5 Mg (3 Ml) Ud) 3 ml IH [id number] [facility] Last Admin: 06/26/16 07:27 Dose: 3 ml Amlodipine Besylate (Norvasc) 10 mg PO DAILY [facility] Last Admin: 06/26/16 09:24 Dose: 10 mg Clonidine HCl (Catapres) 0.1 mg PO TID PRN PRN Reason: Systolic Blood Pressure Last Admin: 06/24/16 00:15 Dose: 0.1 mg Guaifenesin (Robitussin) 100 mg PO Q4H PRN PRN Reason: Cough Last Admin: 06/25/16 20:23 Dose: 100 mg Heparin Sodium (Porcine) (Heparin) 5,000 units SC Q12 LYN PRN Reason: Protocol Last Admin: 06/26/16 09:45 Dose: Not Given Nafcillin Sodium 2 gm/ (Dextrose) 100 mls @ 100 mls/hr IVPB Q6 LYN PRN Reason: Protocol Last Admin: 06/26/16 05:40 Dose: 100 mls/hr Vancomycin HCl 1.5 gm/ Sodium (Chloride) 500 mls @ 167 mls/hr IVPB Q12 LYN PRN Reason: Protocol Last Admin: 06/25/16 22:38 Dose: 167 mls/hr Sodium Chloride (Sodium Chloride 0.9%) 1,000 mls @ 100 mls/hr IV .Q10H [facility] Last Admin: 06/26/16 09:44 Dose: 100 mls/hr Insulin Detemir (Levemir) 24 unit SC HS [facility] Last Admin: 06/24/16 22:39 Dose: 24 unit Insulin Human Lispro (Humalog Low) 0 units SC ACHS [facility] PRN Reason: Protocol Last Admin: 06/26/16 08:00 Dose: Not Given Insulin Human Lispro (Humalog) 14 units SC AC [facility] Last Admin: 06/26/16 07:52 Dose: 14 units Lisinopril (Zestril) 30 mg PO DAILY [facility] Last Admin: 06/26/16 09:24 Dose: 30 mg Pantoprazole Sodium (Protonix Ec Tab) 40 mg PO ACB [facility] Last Admin: 06/26/16 07:52 Dose: 40 mg - Labs Labs: 06/26/16 07:00 06/26/16 07:00 PT 10.7 Seconds (9.9-11.8) 06/19/16 18:15 INR 0.99 (0.93-1.08) 06/19/16 18:15 APTT 30.8 Seconds (23.7-30.8) 06/19/16 18:15 - Constitutional Appears: Non-toxic, No Acute Distress - Head Exam Head Exam: ATRAUMATIC, NORMOCEPHALIC - Eye Exam Eye Exam: EOMI - ENT Exam ENT Exam: Mucous Membranes Moist - Respiratory Exam Respiratory Exam: Rhonchi, NORMAL BREATHING PATTERN - Cardiovascular Exam Cardiovascular Exam: REGULAR RHYTHM, RRR, +S1, +S2. absent: JVD - GI/Abdominal Exam GI & Abdominal Exam: Soft, Tenderness, Normal Bowel Sounds - Extremities Exam Extremities Exam: absent: Joint Swelling, Pedal Edema - Back Exam Back Exam: tenderness. absent: rash noted - Neurological Exam Neurological Exam: Alert, Awake, Oriented x3 - Psychiatric Exam Psychiatric exam: Flat Affect, Normal Mood - Skin Skin Exam: Dry, Intact, Normal Color, Warm Assessment and Plan - Assessment and Plan (Free Text) Assessment: The patient is a 61 year old man with history of HTN and NIDDM who is being admitted to the ICU for DKA, hemoptysis and sepsis 2/2 PNA. Plan: 1. Diabetic Ketoacidosis (without coma): resolving -due to medication non-compliance -HgA1c 16.9 -Endo consult - Dr. Hurst -change to ISS -Levemir 24u SC HS -Humalog 14u AC -Lispro Low SS -Diabetic Diet -Diabetic Education 2. Sepsis 2/2 Pneumonia: -empiric IV antibiotics -procalcitonin 20.42 on 06/19 -procalcitonin 1.09 on 06/26 -lactic acid trending down -HIV non-reactive -ID consult Dr. Hankins - will follow ID recs -acid-fast testing of the sputum x 4 negative -MSSA per cultures 06/19, 06/21, 06/22 -Cultures from 06/24 show no growth to after 24hr -On Vancomycin and Nafcilln 2gm -Switch Vancomycin to Zyvox for better lung penetration. -Add Clindamycin. -ECHO- please see full report -LV normal size and function -mild concentric LV hypertrophy -no report of vegetations -JANEL scheduled for Wednesday -CT Chest/Abdomen/Pelvis 06/20 - please see full report -shows mutifocal PNA w/ Tree/ bed changes. -Unclear if the tree/bud changes were present assisted and not the new infiltrates are superimposed. -CT Chest with IV contrast 06/26 - please see full report -Multiple areas of consolidation are seen in both lungs, no sig zacarias from previous study -CT Abd/Pelvis with PO contrast - please see full report -worsening BL lower lobe infiltrates -no evidence of acute changes/abscess in report -CT Lumbosacral spine with IV contrast - please see full report -no evidence of acute changes/abscess in report 3. Acute Hemoptysis: resolved -ddx: TB vs malignancy -will rule out TB with three sets of sputum AFB samples -avoid anticoagulation -given infiltrates on CXR, absence of respiratory distress and a normal O2 sat, suspicion for acute PE is low -however, if pt's symptoms deteriorate despite IV antibiotics, will then consider a CT-PA 4. Acute Kidney Injury: resolved -likely pre-renal etiology due to intravascular depletion -serum Cr expected to correct after aggressive IVF's -Cr dropped to 1.1 -renally dose all meds until serum Cr corrects 5. Poorly Controlled Hypertension: resolving -due to medication non-compliance -Norvasc 10mg po daily -Clonidine 0.1mg po TID PRN SBP>165 -Lisinopril 30mg PO daily 6. GI Bleed -complaint of black stools -Stool Occult Blood, Culture, C.diff ordered -Hgb steadily downtrending from 14 to 10 since admission -possibly 2/2 to aggressive fluids DVT PPx: Heparin SQ tid GI PPx: Protonix <Rangasamy,Ajantha - Last Filed: 06/27/16 14:51> Objective - Vital Signs/Intake and Output Vital Signs (last 24 hours): Temp Pulse Resp BP Pulse Ox 99.1 F 85 20 158/73 H 94 L 06/27/16 08:00 06/27/16 10:46 06/27/16 08:00 06/27/16 10:46 06/27/16 08:00 Intake and Output: 06/27/16 06/27/16 06:59 18:59 Intake Total 800 Output Total 1600 Balance -800 - Medications Medications: Current Medications Acetaminophen (Tylenol 325mg Tab) 650 mg PO Q8 PRN PRN Reason: Fever >100.4 F Acetylcysteine (Acetylcysteine 20%) 3 ml PO BID LYN Stop: 06/28/16 10:01 Last Admin: 06/27/16 10:45 Dose: 3 ml Albuterol/Ipratropium (Duoneb 3 Mg/0.5 Mg (3 Ml) Ud) 3 ml IH Q2H PRN PRN Reason: Shortness of Breath Last Admin: 06/23/16 23:50 Dose: 3 ml Albuterol/Ipratropium (Duoneb 3 Mg/0.5 Mg (3 Ml) Ud) 3 ml IH [id number] [facility] Last Admin: 06/27/16 13:40 Dose: 3 ml Amlodipine Besylate (Norvasc) 10 mg PO DAILY [facility] Last Admin: 06/27/16 10:45 Dose: 10 mg Clonidine HCl (Catapres) 0.1 mg PO TID PRN PRN Reason: Systolic Blood Pressure Last Admin: 06/26/16 16:25 Dose: 0.1 mg Guaifenesin (Robitussin) 100 mg PO Q4H PRN PRN Reason: Cough Last Admin: 06/25/16 20:23 Dose: 100 mg Heparin Sodium (Porcine) (Heparin) 5,000 units SC Q12 LYN PRN Reason: Protocol Last Admin: 06/27/16 10:45 Dose: 5,000 units Nafcillin Sodium 2 gm/ (Dextrose) 100 mls @ 100 mls/hr IVPB Q6 [facility] PRN Reason: Protocol Last Admin: 06/27/16 12:45 Dose: 100 mls/hr Sodium Chloride (Sodium Chloride 0.9%) 1,000 mls @ 100 mls/hr IV .Q10H [facility] Last Admin: 06/26/16 22:07 Dose: 100 mls/hr Clindamycin Phosphate 600 mg/ (Sodium Chloride) 54 mls @ 102 mls/hr IVPB Q8 [facility] PRN Reason: Protocol Last Admin: 06/27/16 14:21 Dose: 102 mls/hr Linezolid (Zyvox 600mg/300ml D5w) 600 mg in 300 mls @ 200 mls/hr IVPB Q12 [facility] PRN Reason: Protocol Last Admin: 06/27/16 10:48 Dose: 200 mls/hr Ibuprofen (Motrin Tab) 600 mg PO Q8 PRN PRN Reason: Fever >100.4 F Insulin Detemir (Levemir) 20 unit SC HS LYN Insulin Human Lispro (Humalog Low) 0 units SC ACHS [facility] PRN Reason: Protocol Last Admin: 06/27/16 14:21 Dose: Not Given Insulin Human Lispro (Humalog) 10 units SC AC [facility] Last Admin: 06/27/16 11:45 Dose: 10 units Lisinopril (Zestril) 30 mg PO DAILY [facility] Last Admin: 06/27/16 10:46 Dose: 30 mg Pantoprazole Sodium (Protonix Ec Tab) 40 mg PO ACB [facility] Last Admin: 06/27/16 08:43 Dose: 40 mg - Labs Labs: 06/27/16 07:25 06/27/16 07:25 PT 10.7 Seconds (9.9-11.8) 06/19/16 18:15 INR 0.99 (0.93-1.08) 06/19/16 18:15 APTT 30.8 Seconds (23.7-30.8) 06/19/16 18:15 Attending/Attestation - Attestation I have personally seen and examined this patient.: Yes I have fully participated in the care of the patient.: Yes I have reviewed all pertinent clinical information, including history, physical exam and plan: Yes Notes (Text): 06/27/16 14:47 attending note; Patient seen and examined with resident. This is a 61 year old man with history of HTN and NIDDM who presented with generalized weakness, polydysia, polyuria, hemoptysis, cough with greenish/ brown colored sputum, intermittent confusion and found to have DKA, hemoptysis and sepsis due to a multifocal pneumonia. patient was also found to have MSSA bacteremia. patient had MAXIMUM TEMPERE of [address] chest showed multifocal pneumonia/nodular changes. No significant improvement noted. AFB x 3 is negative. continue clindamycin and naficillin. case discussed with ID in detail. Repeat blood culture on 06/22 is positive for MSSA. Blood culture from 06/24 is negative so far. TTE showed no vegetations. Case discussed with cardiology Dr. Dong in detail. Plan for JANEL on Wednesday. Currently patient is on Levemir. Follow up with endocrinology . Diabetic nurse educator evaluation appreciated. Dietary education given. the diagnosis and follow-up plan discussed with patient and patient's in detail.
[2016-06-26] MEDS: Vancomycin 1.5 GM in Sodium Chloride 0.9% 500 ML IVPB SCH (10:17)
[2016-06-26 10:55] LABS: ALB/GLOB RATIO 0.7 (1.1-1.8); ALKALINE PHOSPHATASE 135 U/L (38-133); ALT/SGPT 39 U/L (7-56); AST/SGOT 62 U/L (15-59); BILIRUBIN,TOTAL 0.8 mg/dL (0.2-1.3); BLOOD UREA NITROGEN 6 mg/dL (7-21); CALCIUM 8.6 mg/dL (8.4-10.5); CARBON DIOXIDE 28 mmol/L (21-33); CHLORIDE 104 mmol/L (95-110); GFR AFRICAN-AMERICAN > 60; GLUCOSE,RANDOM 77 mg/dL (70-110); POTASSIUM 3.2 mmol/L (3.6-5.0); SODIUM 143 mmol/L (132-148); TOTAL PROTEIN 6.6 g/dL (5.8-8.3)
--- NOTE | 2016-06-26 12:29 | CT ---
PROCEDURE: CT Abdomen and Pelvis with contrast HISTORY: Abdominal pain. Diabetic ketoacidosis. COMPARISON: 06/20/2016. CT thorax abdomen and pelvis. TECHNIQUE: Oral contrast only. Radiation dose: Total exam DLP = 684.06 mGy-cm. This CT exam was performed using one or more of the following dose reduction techniques: Automated exposure control, adjustment of the mA and/or kV according to patient size, and/or use of iterative reconstruction technique. FINDINGS: LOWER THORAX: Progressive multifocal lower lobe infiltrates incompletely visualized LIVER: Unremarkable. No gross lesion or ductal dilatation. GALLBLADDER AND BILE DUCTS: Unremarkable. PANCREAS: Unremarkable. No gross lesion or ductal dilatation. SPLEEN: Unremarkable. ADRENALS: Unremarkable. No mass. KIDNEYS AND URETERS: Unremarkable. No hydronephrosis. No solid mass. Incidental finding(s): Nonobstructing right renal calculi. VASCULATURE: Unremarkable. No aortic aneurysm. BOWEL: Unremarkable. No obstruction. No gross mural thickening. APPENDIX: Normal appendix. PERITONEUM: Unremarkable. No free fluid. No free air. LYMPH NODES: Unremarkable. No enlarged lymph nodes. BLADDER: Unremarkable. REPRODUCTIVE: Unremarkable. BONES: No acute fracture. OTHER FINDINGS: None. IMPRESSION: Worsening bilateral lower lobe infiltrates. No acute/ significant findings or interval changes abdomen retroperitoneum or pelvis compared to the prior study.
[2016-06-26 12:32] LABS: HEMATOCRIT 33.9 % (42.0-52.0); MEAN CELL VOLUME 82.9 fL (80.0-105.0); MEAN CORPUSCULAR HEMOGLOBIN 26.9 pg (25.0-35.0); MEAN CORPUSCULAR HGB CONC 32.4 g/dl (31.0-37.0); PLATELET COUNT 152 10^3/uL (120.0-450.0); RED CELL DISTRIBUTION WIDTH 14.6 % (11.5-14.5); WHITE BLOOD COUNT 11.3 10^3/ul (4.5-11.0)
--- NOTE | 2016-06-26 13:00 | PN ---
DATE: 06/26/2016 ROOM: 569 This is a 61-year-old male with recent uncontrolled type 2 insulin-requiring diabetes presenting here with diabetic ketoacidosis and dehydration and has since then improved clinically and metabolically with the initiation of vigorous IV hydration and intensive insulin therapy with an insulin drip infus ion as given. His oral intake has improved and he is currently on a basal and bolus insulin drug com bination as given. His latest glucose values have ranged from 77-144 and 240 mg/dL. His latest chem istries include a BUN of 7, sodium 140, potassium 3.2, chloride 104, CO2 of 29, glucose 144, and crea tinine 1.2. So, at this time, we will continue the same basal and bolus insulin regimen to allow for dose equilib ration and keep him on the Levemir given as 24 units subQ at bedtime daily to start tonight. We will continue the Humalog given as 14 units subQ t.i.d. before meals as given. We will titrate increment ally as indicated to optimize metabolic control. We will obtain serial chemistries and supplement ac cordingly as needed. We will follow. Sherri Hurst MD cc: [id number] TT: 06/26/2016 12:59:32 Confirmation # [id number] Dictation # [id number]
[2016-06-26] MEDS ORDERED: Iohexol 350 MG/100 ML VIAL ONE (14:45)
--- NOTE | 2016-06-26 15:22 | CT ---
PROCEDURE: CT Lumbar Spine with contrast HISTORY: r/o LS spine abscess, CT chest with IV also ordere COMPARISON: None. TECHNIQUE: Axial computed tomography images were obtained of the lumbar spine without the use of intravenous contrast. Coronal and sagittal reformatted images were created and reviewed. Radiation dose: Total exam DLP = 636 mGy-cm. This CT exam was performed using one or more of the following dose reduction techniques: Automated exposure control, adjustment of the mA and/or kV according to patient size, and/or use of iterative reconstruction technique. FINDINGS: VERTEBRAE: Unremarkable. No fracture. Normal alignment. DISCS/SPINAL CANAL/NEURAL FORAMINA: L1-2: Unremarkable. L2-3: Unremarkable. L3-4: Unremarkable. L4-5: There is an asymmetric disc bulge an osteophyte formation which produces a mild degree of right-sided foraminal stenosis L5-S1: Unremarkable. PARASPINAL SOFT TISSUES: Unremarkable. OTHER FINDINGS: None. IMPRESSION: No acute findings
--- NOTE | 2016-06-26 15:29 | CT ---
PROCEDURE: CT Chest with contrast HISTORY: r/o lung mass COMPARISON: 06/20/2016 TECHNIQUE: Contiguous axial images were obtained through the chest with intravenous contrast enhancement. Sagittal and coronal reconstructions were performed. IV contrast: 100 cc of Omni 350 Radiation dose (DLP): 437 mGy-cm. This CT exam was performed using one or more of the following dose reduction techniques: Automated exposure control, adjustment of the mA and/or kV according to patient size, and/or use of iterative reconstruction technique. FINDINGS: LUNGS: Multiple areas of consolidation are seen in both lungs not significantly changed from the previous study. Multiple nodular densities are also seen. The findings could be due to multi focal pneumonia. Metastatic disease cannot be excluded. MEDIASTINUM: Unremarkable thoracic aorta. No aneurysm or dissection. Normal sized heart. Main pulmonary artery unremarkable. No vascular congestion. No lymphadenopathy. PLEURA: No pleural fluid. No pneumothorax. BONES: No fracture. No destructive lesion. UPPER ABDOMEN: Grossly unremarkable. OTHER FINDINGS: None. IMPRESSION: Multiple areas of consolidation are seen in both lungs not significantly changed from the previous study. Multiple nodular densities are also seen. The findings could be due to multi focal pneumonia. Metastatic disease cannot be excluded.
--- NOTE | 2016-06-26 15:47 | CP.PCM.PN ---
Subjective - Date & Time of Evaluation Date of Evaluation: 06/26/16 Time of Evaluation: 14:00 - Subjective Subjective: Infectious Disease Follow Up: June 26, 2016 61 yo male with presentation of 2 days of generalized weakness, polydysia, polyuria, hemoptysis, cough with green-colored sputum, intermittent confusion and some mild SOB. On CT scan, tree in bud formations seen. Patient placed under respiratory isolation for TB workup. The patient has no recent travel history. 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 Prior to that, he worked for a [employer] company for 7 years. Extensive pulmonary findings on CT scan. Case discussed with Dr. Moreno. Culture of blood showing gram positive cocci on multiple cultures with FISH testing showing Staph Aureus. Last Vancomycin level at 13.4. Acid-Fast Bacilli Sputum evaluations x 3 are negative. Multiple cultures with MSSA growth. Patient feeling better overall. Patient still with persistent cough. Imaging studies suggest worsening infiltrate. On Nafcillin and Vancomycin currently. For JANEL on Wednesday. Will change Vancomycin IV to Zyvox for better lung penetration. Objective - Vital Signs/Intake and Output Vital Signs (last 24 hours): Temp Pulse Resp BP Pulse Ox 99.5 F 91 H 22 132/76 96 06/26/16 07:30 06/26/16 09:24 06/26/16 07:30 06/26/16 09:24 06/26/16 07:30 Intake and Output: 06/26/16 06/26/16 06:59 18:59 Intake Total 1520 840 Output Total 2900 1200 Balance -1380 -360 - Medications Medications: Current Medications Acetaminophen (Tylenol 325mg Tab) 650 mg PO Q6H PRN PRN Reason: Fever >100.4 F Last Admin: 06/24/16 17:54 Dose: 650 mg Acetylcysteine (Acetylcysteine 20%) 3 ml PO BID [facility] Stop: 06/28/16 10:01 Albuterol/Ipratropium (Duoneb 3 Mg/0.5 Mg (3 Ml) Ud) 3 ml IH Q2H PRN PRN Reason: Shortness of Breath Last Admin: 06/23/16 23:50 Dose: 3 ml Albuterol/Ipratropium (Duoneb 3 Mg/0.5 Mg (3 Ml) Ud) 3 ml IH [id number] [facility] Last Admin: 06/26/16 13:28 Dose: 3 ml Amlodipine Besylate (Norvasc) 10 mg PO DAILY [facility] Last Admin: 06/26/16 09:24 Dose: 10 mg Clonidine HCl (Catapres) 0.1 mg PO TID PRN PRN Reason: Systolic Blood Pressure Last Admin: 06/24/16 00:15 Dose: 0.1 mg Guaifenesin (Robitussin) 100 mg PO Q4H PRN PRN Reason: Cough Last Admin: 06/25/16 20:23 Dose: 100 mg Heparin Sodium (Porcine) (Heparin) 5,000 units SC Q12 [facility] PRN Reason: Protocol Last Admin: 06/26/16 09:45 Dose: Not Given Nafcillin Sodium 2 gm/ (Dextrose) 100 mls @ 100 mls/hr IVPB Q6 [facility] PRN Reason: Protocol Last Admin: 06/26/16 14:12 Dose: 100 mls/hr Vancomycin HCl 1.5 gm/ Sodium (Chloride) 500 mls @ 167 mls/hr IVPB Q12 [facility] PRN Reason: Protocol Last Admin: 06/26/16 10:17 Dose: 167 mls/hr Sodium Chloride (Sodium Chloride 0.9%) 1,000 mls @ 100 mls/hr IV .Q10H [facility] Last Admin: 06/26/16 09:44 Dose: 100 mls/hr Insulin Detemir (Levemir) 24 unit SC HS [facility] Last Admin: 06/24/16 22:39 Dose: 24 unit Insulin Human Lispro (Humalog Low) 0 units SC ACHS [facility] PRN Reason: Protocol Last Admin: 06/26/16 11:30 Dose: Not Given Insulin Human Lispro (Humalog) 14 units SC AC [facility] Last Admin: 06/26/16 11:44 Dose: 14 units Lisinopril (Zestril) 30 mg PO DAILY [facility] Last Admin: 06/26/16 09:24 Dose: 30 mg Pantoprazole Sodium (Protonix Ec Tab) 40 mg PO ACB [facility] Last Admin: 06/26/16 07:52 Dose: 40 mg - Labs Labs: 06/26/16 07:00 06/26/16 07:00 PT 10.7 Seconds (9.9-11.8) 06/19/16 18:15 INR 0.99 (0.93-1.08) 06/19/16 18:15 APTT 30.8 Seconds (23.7-30.8) 06/19/16 18:15 - Constitutional Appears: Non-toxic, No Acute Distress, Chronically Ill - Head Exam Head Exam: ATRAUMATIC, NORMOCEPHALIC - Eye Exam Eye Exam: EOMI, PERRL Pupil Exam: NORMAL ACCOMODATION, PERRL - ENT Exam ENT Exam: Mucous Membranes Moist, Normal External Ear Exam, TM's Normal Bilaterally - Neck Exam Neck Exam: Full ROM, Normal Inspection - Respiratory Exam Respiratory Exam: Decreased Breath Sounds, Rhonchi, NORMAL BREATHING PATTERN. absent: Rales, Wheezes - Cardiovascular Exam Cardiovascular Exam: REGULAR RHYTHM, RRR, +S1, +S2 - GI/Abdominal Exam GI & Abdominal Exam: Soft, Normal Bowel Sounds. absent: Distended, Tenderness - Extremities Exam Extremities Exam: Full ROM, Normal Inspection - Neurological Exam Neurological Exam: Alert, Awake, CN II-XII Intact, Oriented x3 - Psychiatric Exam Psychiatric exam: Normal Affect, Normal Mood - Skin Skin Exam: Intact, Normal Color Assessment and Plan - Assessment and Plan (Free Text) Assessment: 61 yo male presenting with Uncontrolled DM and DKA. Incidental finding of pneumonic picture with a possibility for TB. The patient is under isolation for TB. Risks for TB appear to be low. The patient for acid-fast testing of the sputum x 3. Cannot rule out ALISON, fungal, or severe bacterial infections such as Staph Aureus or Strep Pneumonia. He is being treated for his DKA. On Vancomycin and Zosyn. gram positive cocci in blood cultures. May need to consider Teflaro instead to get better concentrations in the lung for MRSA. Supportive care. AFB x 3 negative. Multiple blood cultures with gram positive cocci. FISH indicating Staph Aureus. On Vancomycin and Zosyn currently. Would obtain Quantiferon for reference point... a positive Quantiferon would not impact management of the case at this time. This test would only indicate patient exposure during his lifetime. Would obtain echocardiogram as well. MSSA in multiple cultures. TTE does not show vegetations. The patient appears to be improving. Switched Zosyn to Nafcillin yesterday. D/C vancomycin once fevers subside. Persistent cough. X-ray of chest and CT Abd/Pel showing worsening left sided infiltrates. CT of the Chest is pending. Switch Vancomycin to Zyvox. Add Clindamycin. Thank you for allowing me to participate in the care of this patient, we will follow with you.
[2016-06-26] MEDS: Acetylcysteine 20% Inhal Soln (4ml) PO SCH (20:13)
[2016-06-26] MEDS: Insulin Detemir 100 units/ml Vial (Levemir) SC SCH ×2 (22:13→22:15)
[2016-06-26] MEDS: Linezolid 600 mg in D5W 300 ml 600 MG/300 ML BAG IVPB SCH (23:07)
[2016-06-27] MEDS: Albuterol-Ipratrop 3 mg / 0.5 (3 ml) UD IH SCH ×5 (01:00→19:28)
[2016-06-27 07:28] LABS: ADD MANUAL DIFF? NO
[2016-06-27 07:34] LABS: BASO # 0.02 K/mm3 (0.0-2.0); BASO % 0.2 % (0.0-3.0); EOS # 0.1 (0.0-0.7); EOS % 0.7 % (1.5-5.0); GRAN % 78.2 % (50.0-68.0); HEMATOCRIT 31.1 % (42.0-52.0); LYMPH # 1.8 (1.2-3.4); LYMPH % 15.2 % (22.0-35.0); MEAN CELL VOLUME 84.1 fL (80.0-105.0); MEAN CORPUSCULAR HEMOGLOBIN 27.3 pg (25.0-35.0); MEAN CORPUSCULAR HGB CONC 32.5 g/dl (31.0-37.0); MEAN PLATELET VOLUME 11.8 fl (7.0-11.0); MONO # 0.7 (0.1-0.6); MONO % 5.7 % (1.0-6.0); PLATELET COUNT 210 10^3/uL (120.0-450.0); RED CELL DISTRIBUTION WIDTH 14.4 % (11.5-14.5); WHITE BLOOD COUNT 11.8 10^3/ul (4.5-11.0)
[2016-06-27 07:45] LABS: ALB/GLOB RATIO 0.7 (1.1-1.8); ALKALINE PHOSPHATASE 88 U/L (38-133); ALT/SGPT 48 U/L (7-56); AST/SGOT 36 U/L (15-59); BILIRUBIN,TOTAL 0.5 mg/dL (0.2-1.3); BLOOD UREA NITROGEN 7 mg/dL (7-21); CALCIUM 7.9 mg/dL (8.4-10.5); CARBON DIOXIDE 30 mmol/L (21-33); CHLORIDE 105 mmol/L (98-107); GFR AFRICAN-AMERICAN > 60; GLUCOSE,RANDOM 86 mg/dL (70-110); SODIUM 139 mmol/L (132-148); TOTAL PROTEIN 5.9 g/dL (5.8-8.3)
[2016-06-27] MEDS: Insulin Lispro 1 UNITS/0.01 ML SC SCH ×3 (08:30→17:35)
[2016-06-27] MEDS: Insulin Lispro (humaLOG) LOW Coverage SC SCH ×4 (08:40→23:10)
[2016-06-27] MEDS: Pantoprazole 40 mg EC Tab PO SCH (08:43)
[2016-06-27] MEDS: Acetylcysteine 20% Inhal Soln (4ml) PO SCH ×3 (08:49→17:17)
--- NOTE | 2016-06-27 10:35 | CON ---
DATE: 06/27/2016 REQUESTING PHYSICIAN: Dr. Moreno. REASON FOR CONSULTATION: Persistent bacteremia. HISTORY OF PRESENT ILLNESS: This is a 61-year-old man who was admitted 06/19 with weakness and produc tive cough. He had evidence of right-sided pneumonia as well as diabetic ketoacidosis. Blood cultur es have grown methicillin-sensitive staphylococcal aureus. Evaluation for possible transesophageal e chocardiogram was requested. The patient is seen on 5R sitting comfortably in bed. He believes that he has had a transesophageal echocardiogram performed at some point in the past, but cannot recall t he details. PAST MEDICAL HISTORY: Notable for the problems mentioned above. He does have a history of diabetes and hypertension. He reportedly had a gastric ulcer many years ago. Past medical history as mention ed. CURRENT MEDICATIONS: Include Mucomyst, Catapres, clindamycin, albuterol inhaler, subcutaneous hepari n, insulin, nafcillin, Norvasc, Protonix, Zestril, and Zyvox. ALLERGIES: He has no drug allergies known. SOCIAL HISTORY: He does not smoke or drink. FAMILY HISTORY: Unremarkable. REVIEW OF SYSTEMS: A 10 point review of systems is otherwise unremarkable. PHYSICAL EXAMINATION: GENERAL: He is a fit appearing middle-aged man. VITAL SIGNS: His blood pressure is 150/72 with a pulse of 86, respirations are 16. He is afebrile. NECK: No JVD. CHEST: A few scattered rhonchi. HEART: PMI displaced laterally with no pathologic murmur or gallops noted. ABDOMEN: Soft, nontender, normoactive bowel sounds. EXTREMITIES: No edema. DIAGNOSTIC DATA: Potassium 3.0, BUN and creatinine are 7 and 1.2. White count 11.8, hematocrit 10.1 and 31.1 with a platelet count of 210,000. IMPRESSION AND PLAN: Persistent methicillin-sensitive Staphylococcus aureus bacteremia with pneumoni a. Of note, he did have a fever to 101.3 yesterday afternoon. Currently on Zyvox and nafcillin. Tr ansthoracic echocardiogram was reviewed showing no clear evidence of vegetation. Given persistent ba cteremia, transesophageal echocardiogram appears reasonable to exclude any component of endocarditis. If vegetations are found, a more prolonged course of antibiotics would be necessary. This will be arranged for early next week. Thank you for this consultation. Will be happy to make further recommendations based upon the result s of his JANEL. Declan Tanner MD cc: [id number] TT: 06/27/2016 10:34:48 Confirmation # [id number] Dictation # [id number] gavin
[2016-06-27] MEDS: Linezolid 600 mg in D5W 300 ml 600 MG/300 ML BAG IVPB SCH ×2 (10:48→22:56)
[2016-06-27] MEDS ORDERED: Potassium Chloride 40 mEq/30 ml LIQ UD PO ONE ×2 (11:49→17:00)
--- NOTE | 2016-06-27 12:15 | PN ---
DATE: 06/27/2016 LOCATION: Room 569. This is a 61-year-old male with recent uncontrolled type 2 insulin-requiring diabetes now being follo wed closely for metabolic management. He actually was only on oral hypoglycemic therapy at home and did not ever use insulin therapy prior to the admission. However, with the intercurrent acute pneumo agueda with ongoing IV antibiotic management is a physical stressor to the body with supervening hypergl ycemic accelerations as noted thereof. His latest chemistry showed a BUN of 7, sodium 139, potassium 3.0, chloride 105, CO2 30, glucose 86, and creatinine 1.2. So, at this time, we will modify his bas al and bolus insulin regimen and lower the Levemir to 20 units subQ at bedtime daily to start tonight . We will also lower the Humalog to 10 units subQ t.i.d. before meals to start at lunchtime today as ordered. We will continue the low-dose correction scale using Humalog insulin as given. We will fo llow. Sherri Hurst MD cc: [id number] TT: 06/27/2016 12:15:00 Confirmation # [id number] Dictation # [id number] tn
[2016-06-27] MEDS ORDERED: Potassium Chloride 20 mEq ER Tab PO ONE (17:00)
--- NOTE | 2016-06-27 18:52 | CP.PCM.PN ---
<Zoila Boss - Last Filed: 06/27/16 18:54> Subjective - Date & Time of Evaluation Date of Evaluation: 06/27/16 Time of Evaluation: 11:45 - Subjective Subjective: PGY-1 Medicine progress note Patient seen and examined at bedside. No acute distress. Nurse reports fever of 101.3 overnight. Temperature improved this morning. Patient states hes doing overall better, but continues to have cough with green/yellow sputum production , tinged with blood. SOB improved with breathing treatment. He also reported having black stools. He denies chills, chest pain, nausea, vomiting, diarrhea, or any abdominal pain. Objective - Vital Signs/Intake and Output Vital Signs (last 24 hours): Temp Pulse Resp BP Pulse Ox 99.6 F 96 H 20 148/79 96 06/27/16 16:00 06/27/16 16:00 06/27/16 16:00 06/27/16 16:00 06/27/16 16:00 Intake and Output: 06/27/16 06/27/16 06:59 18:59 Intake Total 800 Output Total 1600 Balance -800 - Medications Medications: Current Medications Acetaminophen (Tylenol 325mg Tab) 650 mg PO Q8 PRN PRN Reason: Fever >100.4 F Acetylcysteine (Acetylcysteine 20%) 3 ml PO BID [facility] Stop: 06/28/16 10:01 Last Admin: 06/27/16 17:17 Dose: Not Given Albuterol/Ipratropium (Duoneb 3 Mg/0.5 Mg (3 Ml) Ud) 3 ml IH Q2H PRN PRN Reason: Shortness of Breath Last Admin: 06/23/16 23:50 Dose: 3 ml Albuterol/Ipratropium (Duoneb 3 Mg/0.5 Mg (3 Ml) Ud) 3 ml IH [id number] [facility] Last Admin: 06/27/16 13:40 Dose: 3 ml Amlodipine Besylate (Norvasc) 10 mg PO DAILY [facility] Last Admin: 06/27/16 10:45 Dose: 10 mg Clonidine HCl (Catapres) 0.1 mg PO TID PRN PRN Reason: Systolic Blood Pressure Last Admin: 06/26/16 16:25 Dose: 0.1 mg Guaifenesin (Robitussin) 100 mg PO Q4H PRN PRN Reason: Cough Last Admin: 06/25/16 20:23 Dose: 100 mg Heparin Sodium (Porcine) (Heparin) 5,000 units SC Q12 [facility] PRN Reason: Protocol Last Admin: 06/27/16 10:45 Dose: 5,000 units Nafcillin Sodium 2 gm/ (Dextrose) 100 mls @ 100 mls/hr IVPB Q6 [facility] PRN Reason: Protocol Last Admin: 06/27/16 18:25 Dose: 100 mls/hr Sodium Chloride (Sodium Chloride 0.9%) 1,000 mls @ 100 mls/hr IV .Q10H [facility] Last Admin: 06/26/16 22:07 Dose: 100 mls/hr Clindamycin Phosphate 600 mg/ (Sodium Chloride) 54 mls @ 102 mls/hr IVPB Q8 [facility] PRN Reason: Protocol Last Admin: 06/27/16 14:21 Dose: 102 mls/hr Linezolid (Zyvox 600mg/300ml D5w) 600 mg in 300 mls @ 200 mls/hr IVPB Q12 [facility] PRN Reason: Protocol Last Admin: 06/27/16 10:48 Dose: 200 mls/hr Ibuprofen (Motrin Tab) 600 mg PO Q8 PRN PRN Reason: Fever >100.4 F Insulin Detemir (Levemir) 20 unit SC HS [facility] Insulin Human Lispro (Humalog Low) 0 units SC ACHS [facility] PRN Reason: Protocol Last Admin: 06/27/16 17:35 Dose: Not Given Insulin Human Lispro (Humalog) 10 units SC AC [facility] Last Admin: 06/27/16 17:35 Dose: Not Given Lisinopril (Zestril) 30 mg PO DAILY [facility] Last Admin: 06/27/16 10:46 Dose: 30 mg Pantoprazole Sodium (Protonix Ec Tab) 40 mg PO ACB [facility] Last Admin: 06/27/16 08:43 Dose: 40 mg - Labs Labs: 06/27/16 07:25 06/27/16 07:25 PT 10.7 Seconds (9.9-11.8) 06/19/16 18:15 INR 0.99 (0.93-1.08) 06/19/16 18:15 APTT 30.8 Seconds (23.7-30.8) 06/19/16 18:15 - Constitutional Appears: Well, No Acute Distress - Head Exam Head Exam: ATRAUMATIC, NORMOCEPHALIC - Eye Exam Eye Exam: Normal appearance - ENT Exam ENT Exam: Mucous Membranes Moist - Respiratory Exam Respiratory Exam: Rhonchi, NORMAL BREATHING PATTERN. absent: Decreased Breath Sounds, Rales, Wheezes, Respiratory Distress - Cardiovascular Exam Cardiovascular Exam: REGULAR RHYTHM, +S1, +S2. absent: Tachycardia, Murmur - GI/Abdominal Exam GI & Abdominal Exam: Soft, Normal Bowel Sounds. absent: Guarding, Rigid, Tenderness - Extremities Exam Extremities Exam: Normal Inspection. absent: Pedal Edema - Neurological Exam Neurological Exam: Alert, Awake, Oriented x3 - Skin Skin Exam: Dry, Intact, Normal Color, Warm Assessment and Plan - Assessment and Plan (Free Text) Assessment: 61 year old man with history of HTN and NIDDM who is being admitted to the ICU for DKA, hemoptysis and sepsis 2/2 PNA. Plan: 1. Diabetic Ketoacidosis (without coma): resolving - due to medication non-compliance - HgA1c 16.9 - Endo consult - Dr. Hurst - ISS- low - Levemir decreased to 20u SC HS - Humalog decreases to 10 u AC -Diabetic Diet -Diabetic Education 2. Sepsis 2/2 Pneumonia: - cont to have fevers - empiric IV antibiotics - procalcitonin 20.42 on 06/19, decreased to 1.09 on 06/26 - lactic acid trending down - HIV non-reactive - ID consult Dr. Hankins - will follow ID recs - acid-fast testing of the sputum x 4 negative - MSSA per cultures 06/19, 06/21, 06/22 - Cultures from 06/24 show no growth to after 48hr - repeat blood cx - cont Nafcilln 2gm - yesterday switched Vancomycin to Zyvox for better lung penetration. 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 (please see full report -CT Chest with IV contrast 06/26 - Multiple areas of consolidation are seen in both lungs, no sig zacarias from previous study (please see full reports) -CT Abd/Pelvis with PO contrast - please see full report -worsening BL lower lobe infiltrates, no evidence of acute changes/abscess in report -CT Lumbosacral spine with IV contrast - please see full report 3. Acute Hemoptysis: resolved - ddx: TB vs malignancy - will rule out TB with three sets of sputum AFB samples - avoid anticoagulation - given infiltrates on CXR, absence of respiratory distress and a normal O2 sat , suspicion for acute PE is low - however, if pt's symptoms deteriorate despite IV antibiotics, will then consider a CT-PA 4. Acute Kidney Injury: resolved - likely pre-renal etiology due to intravascular depletion - renally dose all meds until serum Cr corrects 5. Poorly Controlled Hypertension: resolving - due to medication non-compliance - Norvasc 10mg po daily - Clonidine 0.1mg po TID PRN SBP>165 - Lisinopril 30mg PO daily 6. GI Bleed - complaint of black stools - Stool Occult Blood, Culture, C.diff ordered - Hgb steadily downtrending since admission, possibly 2/2 to aggressive fluids DVT PPx: Heparin SQ tid GI PPx: Protonix <Rangasamy,Ajantha - Last Filed: 06/28/16 14:22> Objective - Vital Signs/Intake and Output Vital Signs (last 24 hours): Temp Pulse Resp BP Pulse Ox 97.9 F 84 10 L 137/62 98 06/28/16 08:00 06/28/16 09:08 06/28/16 08:00 06/28/16 09:08 06/28/16 08:00 Intake and Output: 06/28/16 06/28/16 06:59 18:59 Intake Total 5120 Output Total 6251 Balance -1131 - Medications Medications: Current Medications Acetaminophen (Tylenol 325mg Tab) 650 mg PO Q8 PRN PRN Reason: Fever >100.4 F Albuterol/Ipratropium (Duoneb 3 Mg/0.5 Mg (3 Ml) Ud) 3 ml IH Q2H PRN PRN Reason: Shortness of Breath Last Admin: 06/23/16 23:50 Dose: 3 ml Albuterol/Ipratropium (Duoneb 3 Mg/0.5 Mg (3 Ml) Ud) 3 ml IH [id number] [facility] Last Admin: 06/28/16 07:35 Dose: 3 ml Amlodipine Besylate (Norvasc) 10 mg PO DAILY [facility] Last Admin: 06/28/16 09:08 Dose: 10 mg Clonidine HCl (Catapres) 0.1 mg PO TID PRN PRN Reason: Systolic Blood Pressure Last Admin: 06/26/16 16:25 Dose: 0.1 mg Guaifenesin (Robitussin) 100 mg PO Q4H PRN PRN Reason: Cough Last Admin: 06/25/16 20:23 Dose: 100 mg Heparin Sodium (Porcine) (Heparin) 5,000 units SC Q12 [facility] PRN Reason: Protocol Last Admin: 06/28/16 09:08 Dose: 5,000 units Sodium Chloride (Sodium Chloride 0.9%) 1,000 mls @ 100 mls/hr IV .Q10H [facility] Last Admin: 06/26/16 22:07 Dose: 100 mls/hr Clindamycin Phosphate 600 mg/ (Sodium Chloride) 54 mls @ 102 mls/hr IVPB Q8 [facility] PRN Reason: Protocol Last Admin: 06/28/16 05:37 Dose: 102 mls/hr Linezolid (Zyvox 600mg/300ml D5w) 600 mg in 300 mls @ 200 mls/hr IVPB Q12 [facility] PRN Reason: Protocol Last Admin: 06/28/16 11:00 Dose: 200 mls/hr Nafcillin Sodium 2 gm/ Sodium (Chloride) 100 mls @ 100 mls/hr IVPB Q6 [facility] PRN Reason: Protocol Ibuprofen (Motrin Tab) 600 mg PO Q8 PRN PRN Reason: Fever >100.4 F Last Admin: 06/27/16 23:32 Dose: 600 mg Insulin Detemir (Levemir) 20 unit SC HS [facility] Last Admin: 06/27/16 22:57 Dose: 20 unit Insulin Human Lispro (Humalog Low) 0 units SC ACHS [facility] PRN Reason: Protocol Last Admin: 06/28/16 08:25 Dose: Not Given Insulin Human Lispro (Humalog) 10 units SC AC [facility] Last Admin: 06/28/16 08:45 Dose: 10 units Lisinopril (Zestril) 30 mg PO DAILY [facility] Last Admin: 06/28/16 09:08 Dose: 30 mg Morphine Sulfate (Morphine) 1 mg IVP Q4H PRN PRN Reason: Pain, moderate (4-7) Pantoprazole Sodium (Protonix Ec Tab) 40 mg PO ACB [facility] Last Admin: 06/28/16 08:50 Dose: 40 mg Potassium Chloride (K-Dur 20 Meq Er Tab) 40 meq PO ONCE ONE Stop: 06/28/16 14:01 - Labs Labs: 06/28/16 07:00 06/28/16 07:00 PT 10.7 Seconds (9.9-11.8) 06/19/16 18:15 INR 0.99 (0.93-1.08) 06/19/16 18: APTT 30.8 Seconds (23.7-30.8) 06/19/16 18:15 Attending/Attestation - Attestation I have personally seen and examined this patient.: Yes I have fully participated in the care of the patient.: Yes I have reviewed all pertinent clinical information, including history, physical exam and plan: Yes Notes (Text): 06/28/16 13:49 attending note; Patient seen and examined with resident. This is a 61 year old man with history of HTN and NIDDM who presented with generalized weakness, polydysia, polyuria, hemoptysis, cough with greenish/ brown colored sputum, intermittent confusion and found to have DKA, hemoptysis and sepsis due to a multifocal pneumonia. patient was also found to have MSSA bacteremia. still with fevers on and off. Repeat CT chest showed multifocal pneumonia/ nodular changes. No significant improvement noted. AFB x 3 is negative. continue clindamycin, zyvox and naficillin. case discussed with ID in detail. Repeat blood culture on 06/22 is positive for MSSA. Blood culture from 06/24 is negative so far. TTE showed no vegetations. Case discussed with cardiology Dr. Dong in detail. Plan for JANEL on Wednesday. Hypokalemia; by mouth and IV potassium supplementation ordered. Currently patient is on Levemir. Follow up with endocrinology . Diabetic nurse educator evaluation appreciated. Dietary education given. the diagnosis and follow-up plan discussed with patient and patient's in detail.
[2016-06-27] MEDS ORDERED: Aspirin 325 mg EC Tablets PO STA (20:32)
--- NOTE | 2016-06-27 20:55 | CP.PCM.PN ---
Subjective - Date & Time of Evaluation Date of Evaluation: 06/27/16 Time of Evaluation: 18:00 - Subjective Subjective: Infectious Disease Follow Up: June 27, 2016 61 yo male with presentation of 2 days of generalized weakness, polydysia, polyuria, hemoptysis, cough with green-colored sputum, intermittent confusion and some mild SOB. On CT scan, tree in bud formations seen. Patient placed under respiratory isolation for TB workup. The patient has no recent travel history. 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 Extensive pulmonary findings on CT scan. Case discussed with Dr. Moreno. Culture of blood showing gram positive cocci on multiple cultures with FISH testing showing Staph Aureus. Last Vancomycin level at 13.4. Acid-Fast Bacilli Sputum evaluations x 3 are negative. Multiple cultures with MSSA growth. Patient feeling better overall. Patient still with persistent cough. Imaging studies suggest worsening infiltrate. On Nafcillin and Vancomycin currently. For JANEL on Wednesday. Changed Vancomycin IV to Zyvox for better lung penetration yesterday. Still with fever last night up to 101.3 F Objective - Vital Signs/Intake and Output Vital Signs (last 24 hours): Temp Pulse Resp BP Pulse Ox 99.6 F 96 H 20 148/79 96 06/27/16 16:00 06/27/16 16:00 06/27/16 16:00 06/27/16 16:00 06/27/16 16:00 - Medications Medications: Current Medications Acetaminophen (Tylenol 325mg Tab) 650 mg PO Q8 PRN PRN Reason: Fever >100.4 F Acetylcysteine (Acetylcysteine 20%) 3 ml PO BID [facility] Stop: 06/28/16 10:01 Last Admin: 06/27/16 17:17 Dose: Not Given Albuterol/Ipratropium (Duoneb 3 Mg/0.5 Mg (3 Ml) Ud) 3 ml IH Q2H PRN PRN Reason: Shortness of Breath Last Admin: 06/23/16 23:50 Dose: 3 ml Albuterol/Ipratropium (Duoneb 3 Mg/0.5 Mg (3 Ml) Ud) 3 ml IH [id number] LYN Last Admin: 06/27/16 19:28 Dose: 3 ml Amlodipine Besylate (Norvasc) 10 mg PO DAILY [facility] Last Admin: 06/27/16 10:45 Dose: 10 mg Clonidine HCl (Catapres) 0.1 mg PO TID PRN PRN Reason: Systolic Blood Pressure Last Admin: 06/26/16 16:25 Dose: 0.1 mg Guaifenesin (Robitussin) 100 mg PO Q4H PRN PRN Reason: Cough Last Admin: 06/25/16 20:23 Dose: 100 mg Heparin Sodium (Porcine) (Heparin) 5,000 units SC Q12 LYN PRN Reason: Protocol Last Admin: 06/27/16 10:45 Dose: 5,000 units Nafcillin Sodium 2 gm/ (Dextrose) 100 mls @ 100 mls/hr IVPB Q6 LYN PRN Reason: Protocol Last Admin: 06/27/16 18:25 Dose: 100 mls/hr Sodium Chloride (Sodium Chloride 0.9%) 1,000 mls @ 100 mls/hr IV .Q10H [facility] Last Admin: 06/26/16 22:07 Dose: 100 mls/hr Clindamycin Phosphate 600 mg/ (Sodium Chloride) 54 mls @ 102 mls/hr IVPB Q8 LYN PRN Reason: Protocol Last Admin: 06/27/16 14:21 Dose: 102 mls/hr Linezolid (Zyvox 600mg/300ml D5w) 600 mg in 300 mls @ 200 mls/hr IVPB Q12 LYN PRN Reason: Protocol Last Admin: 06/27/16 10:48 Dose: 200 mls/hr Ibuprofen (Motrin Tab) 600 mg PO Q8 PRN PRN Reason: Fever >100.4 F Insulin Detemir (Levemir) 20 unit SC HS LYN Insulin Human Lispro (Humalog Low) 0 units SC ACHS LYN PRN Reason: Protocol Last Admin: 06/27/16 17:35 Dose: Not Given Insulin Human Lispro (Humalog) 10 units SC AC [facility] Last Admin: 06/27/16 17:35 Dose: Not Given Lisinopril (Zestril) 30 mg PO DAILY [facility] Last Admin: 06/27/16 10:46 Dose: 30 mg Pantoprazole Sodium (Protonix Ec Tab) 40 mg PO ACB [facility] Last Admin: 06/27/16 08:43 Dose: 40 mg - Labs Labs: 06/27/16 07:25 06/27/16 07:25 PT 10.7 Seconds (9.9-11.8) 06/19/16 18:15 INR 0.99 (0.93-1.08) 06/19/16 18:15 APTT 30.8 Seconds (23.7-30.8) 06/19/16 18:15 - Constitutional Appears: Non-toxic, No Acute Distress, Chronically Ill - Head Exam Head Exam: ATRAUMATIC, NORMOCEPHALIC - Eye Exam Eye Exam: EOMI, PERRL Pupil Exam: NORMAL ACCOMODATION, PERRL - ENT Exam ENT Exam: Mucous Membranes Moist, Normal External Ear Exam, TM's Normal Bilaterally - Neck Exam Neck Exam: Full ROM, Normal Inspection - Respiratory Exam Respiratory Exam: Decreased Breath Sounds, Rhonchi, NORMAL BREATHING PATTERN. absent: Rales, Wheezes Additional comments: diffuse rhonchi. - Cardiovascular Exam Cardiovascular Exam: REGULAR RHYTHM, RRR, +S1, +S2 - GI/Abdominal Exam GI & Abdominal Exam: Soft, Normal Bowel Sounds. absent: Distended, Tenderness - Extremities Exam Extremities Exam: Full ROM, Normal Inspection - Neurological Exam Neurological Exam: Alert, Awake, CN II-XII Intact, Oriented x3 - Psychiatric Exam Psychiatric exam: Normal Affect, Normal Mood - Skin Skin Exam: Intact, Normal Color Assessment and Plan - Assessment and Plan (Free Text) Assessment: 61 yo male presenting with Uncontrolled DM and DKA. Incidental finding of pneumonic picture with a possibility for TB. The patient is under isolation for TB. Risks for TB appear to be low. The patient for acid-fast testing of the sputum x 3. Cannot rule out ALISON, fungal, or severe bacterial infections such as Staph Aureus or Strep Pneumonia. He is being treated for his DKA. On Vancomycin and Zosyn. gram positive cocci in blood cultures. May need to consider Teflaro instead to get better concentrations in the lung for MRSA. Supportive care. AFB x 3 negative. Multiple blood cultures with gram positive cocci. FISH indicating Staph Aureus. On Vancomycin and Zosyn currently. Would obtain Quantiferon for reference point... a positive Quantiferon would not impact management of the case at this time. This test would only indicate patient exposure during his lifetime. Would obtain echocardiogram as well. MSSA in multiple cultures. TTE does not show vegetations. The patient appears to be improving. Switched Zosyn to Nafcillin yesterday. D/C vancomycin once fevers subside. Persistent cough. X-ray of chest and CT Abd/Pel showing worsening left sided infiltrates. CT of the Chest is pending. Switch Vancomycin to Zyvox yesterday. On day 2 of Clindamycin. For JANEL Wednesday. Thank you for allowing me to participate in the care of this patient, we will follow with you.
[2016-06-27] MEDS: Insulin Detemir 100 units/ml Vial (Levemir) SC SCH (22:57)
[2016-06-28] MEDS: Albuterol-Ipratrop 3 mg / 0.5 (3 ml) UD IH SCH ×4 (01:11→19:36)
[2016-06-28 07:23] LABS: ADD MANUAL DIFF? NO
[2016-06-28 07:30] LABS: BASO # 0.02 K/mm3 (0.0-2.0); BASO % 0.2 % (0.0-3.0); EOS # 0.1 (0.0-0.7); EOS % 0.8 % (1.5-5.0); GRAN # 7.84 (1.4-6.5); GRAN % 73.1 % (50.0-68.0); LYMPH # 2.2 (1.2-3.4); LYMPH % 20.1 % (22.0-35.0); MEAN CELL VOLUME 85.2 fL (80.0-105.0); MEAN CORPUSCULAR HEMOGLOBIN 27.8 pg (25.0-35.0); MEAN CORPUSCULAR HGB CONC 32.7 g/dl (31.0-37.0); MEAN PLATELET VOLUME 11.6 fl (7.0-11.0); MONO # 0.6 (0.1-0.6); MONO % 5.8 % (1.0-6.0); PLATELET COUNT 269 10^3/uL (120.0-450.0); RED CELL DISTRIBUTION WIDTH 14.6 % (11.5-14.5); WHITE BLOOD COUNT 10.7 10^3/ul (4.5-11.0)
[2016-06-28] MEDS: Acetylcysteine 20% Inhal Soln (4ml) PO SCH ×2 (07:35→09:03)
[2016-06-28 07:48] LABS: ALB/GLOB RATIO 0.7 (1.1-1.8); ALKALINE PHOSPHATASE 77 U/L (38-133); ALT/SGPT 46 U/L (7-56); AST/SGOT 25 U/L (15-59); BILIRUBIN,TOTAL 0.4 mg/dL (0.2-1.3); BLOOD UREA NITROGEN 6 mg/dL (7-21); CALCIUM 7.7 mg/dL (8.4-10.5); CARBON DIOXIDE 29 mmol/L (21-33); CHLORIDE 104 mmol/L (98-107); GFR AFRICAN-AMERICAN > 60; GLUCOSE,RANDOM 110 mg/dL (70-110); SODIUM 139 mmol/L (132-148); TOTAL PROTEIN 6.1 g/dL (5.8-8.3)
[2016-06-28 07:49] LABS: TROPONIN I 0.02 ng/mL
[2016-06-28 07:52] LABS: POTASSIUM 2.9 mmol/L (3.6-5.0)
[2016-06-28] MEDS ORDERED: Potassium Chloride 20 mEq ER Tab PO STA (08:21)
[2016-06-28] MEDS: Insulin Lispro (humaLOG) LOW Coverage SC SCH ×4 (08:25→22:23)
[2016-06-28] MEDS ORDERED: Morphine 2 mg/ml ISec IVP PRN (08:33)
[2016-06-28] MEDS: Insulin Lispro 1 UNITS/0.01 ML SC SCH ×3 (08:45→17:04)
[2016-06-28] MEDS: Pantoprazole 40 mg EC Tab PO SCH (08:50)
[2016-06-28] MEDS: Linezolid 600 mg in D5W 300 ml 600 MG/300 ML BAG IVPB SCH ×2 (11:00→22:24)
--- NOTE | 2016-06-28 11:07 | CP.PCM.PN ---
<AndreaDeann - Last Filed: 06/28/16 10:59> Subjective - Date & Time of Evaluation Date of Evaluation: 06/28/16 Time of Evaluation: 11:01 - Subjective Subjective: HOSPITALISTS PROGRESS NOTE Pt is seen and examined at bedside. Patient was febrile overnight with temp of 100.7. This morning, patient denies having any fevers/chills, CP, SOB, abd pain , N/V/D/C. Patient does still have a productive cough present Objective - Vital Signs/Intake and Output Vital Signs (last 24 hours): Temp Pulse Resp BP Pulse Ox 97.9 F 84 10 L 137/62 98 06/28/16 08:00 06/28/16 09:08 06/28/16 08:00 06/28/16 09:08 06/28/16 08:00 Intake and Output: 06/28/16 06/28/16 06:59 18:59 Intake Total 5120 Output Total 6251 Balance -1131 - Medications Medications: Current Medications Acetaminophen (Tylenol 325mg Tab) 650 mg PO Q8 PRN PRN Reason: Fever >100.4 F Albuterol/Ipratropium (Duoneb 3 Mg/0.5 Mg (3 Ml) Ud) 3 ml IH Q2H PRN PRN Reason: Shortness of Breath Last Admin: 06/23/16 23:50 Dose: 3 ml Albuterol/Ipratropium (Duoneb 3 Mg/0.5 Mg (3 Ml) Ud) 3 ml IH [id number] [facility] Last Admin: 06/28/16 07:35 Dose: 3 ml Amlodipine Besylate (Norvasc) 10 mg PO DAILY [facility] Last Admin: 06/28/16 09:08 Dose: 10 mg Clonidine HCl (Catapres) 0.1 mg PO TID PRN PRN Reason: Systolic Blood Pressure Last Admin: 06/26/16 16:25 Dose: 0.1 mg Guaifenesin (Robitussin) 100 mg PO Q4H PRN PRN Reason: Cough Last Admin: 06/25/16 20:23 Dose: 100 mg Heparin Sodium (Porcine) (Heparin) 5,000 units SC Q12 LYN PRN Reason: Protocol Last Admin: 06/28/16 09:08 Dose: 5,000 units Nafcillin Sodium 2 gm/ (Dextrose) 100 mls @ 100 mls/hr IVPB Q6 LYN PRN Reason: Protocol Last Admin: 06/28/16 05:38 Dose: 100 mls/hr Sodium Chloride (Sodium Chloride 0.9%) 1,000 mls @ 100 mls/hr IV .Q10H [facility] Last Admin: 06/26/16 22:07 Dose: 100 mls/hr Clindamycin Phosphate 600 mg/ (Sodium Chloride) 54 mls @ 102 mls/hr IVPB Q8 LYN PRN Reason: Protocol Last Admin: 06/28/16 05:37 Dose: 102 mls/hr Linezolid (Zyvox 600mg/300ml D5w) 600 mg in 300 mls @ 200 mls/hr IVPB Q12 LYN PRN Reason: Protocol Last Admin: 06/27/16 22:56 Dose: 200 mls/hr Ibuprofen (Motrin Tab) 600 mg PO Q8 PRN PRN Reason: Fever >100.4 F Last Admin: 06/27/16 23:32 Dose: 600 mg Insulin Detemir (Levemir) 20 unit SC HS [facility] Last Admin: 06/27/16 22:57 Dose: 20 unit Insulin Human Lispro (Humalog Low) 0 units SC ACHS L[facility] PRN Reason: Protocol Last Admin: 06/28/16 08:25 Dose: Not Given Insulin Human Lispro (Humalog) 10 units SC AC [facility] Last Admin: 06/28/16 08:45 Dose: 10 units Lisinopril (Zestril) 30 mg PO DAILY [facility] Last Admin: 06/28/16 09:08 Dose: 30 mg Morphine Sulfate (Morphine) 1 mg IVP Q4H PRN PRN Reason: Pain, moderate (4-7) Pantoprazole Sodium (Protonix Ec Tab) 40 mg PO ACB [facility] Last Admin: 06/28/16 08:50 Dose: 40 mg - Labs Labs: 06/28/16 07:00 06/28/16 07:00 PT 10.7 Seconds (9.9-11.8) 06/19/16 18:15 INR 0.99 (0.93-1.08) 06/19/16 18:15 APTT 30.8 Seconds (23.7-30.8) 06/19/16 18:15 - Constitutional Appears: Non-toxic, No Acute Distress - Head Exam Head Exam: ATRAUMATIC - ENT Exam ENT Exam: Mucous Membranes Moist - Respiratory Exam Respiratory Exam: Clear to Ausculation Bilateral, NORMAL BREATHING PATTERN. absent: Rales, Rhonchi, Wheezes - Cardiovascular Exam Cardiovascular Exam: REGULAR RHYTHM, +S1, +S2 - GI/Abdominal Exam GI & Abdominal Exam: Soft. absent: Distended, Firm, Guarding, Rigid, Tenderness - Extremities Exam Extremities Exam: absent: Pedal Edema, Tenderness - Neurological Exam Neurological Exam: Alert, Awake, Oriented x3 - Psychiatric Exam Psychiatric exam: Normal Affect, Normal Mood - Skin Skin Exam: Dry, Intact, Normal Color, Warm Assessment and Plan - Assessment and Plan (Free Text) Assessment: 61 year old man with history of HTN and NIDDM who is being admitted to the ICU for DKA, hemoptysis and sepsis 2/2 PNA. Plan: 1. Diabetic Ketoacidosis (without coma): resolving - due to medication non-compliance - HgA1c 16.9 - Endo consult - Dr. Hurst - ISS- low - Levemir decreased to 20u SC HS - Humalog decreases to 10 u AC -Diabetic Diet -Diabetic Education 2. Sepsis 2/2 Pneumonia: - cont to have fevers - empiric IV antibiotics - procalcitonin 20.42 on 06/19, decreased to 1.09 on 06/26 - lactic acid trending down - HIV non-reactive - ID consult Dr. Hankins - will follow ID recs - acid-fast testing of the sputum x 4 negative - MSSA per cultures 06/19, 06/21, 06/22 - Cultures from 06/24 show no growth to after 48hr - repeat blood cx pending - cont Nafcilln 2gm. Switched from D5 solution to NS - yesterday switched Vancomycin to Zyvox for better lung penetration. 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 (please see full report -CT Chest with IV contrast 06/26 - Multiple areas of consolidation are seen in both lungs, no sig change from previous study (please see full reports) -CT Abd/Pelvis with PO contrast - please see full report -worsening BL lower lobe infiltrates, no evidence of acute changes/abscess in report -CT Lumbosacral spine with IV contrast - please see full report 3. Acute Hemoptysis: resolved - ddx: TB vs malignancy - TB ruled out wth 3 negative sputum AFB stain - avoid anticoagulation - given infiltrates on CXR, absence of respiratory distress and a normal O2 sat , suspicion for acute PE is low - however, if pt's symptoms deteriorate despite IV antibiotics, will then consider a CT-PA 4. Acute Kidney Injury: resolved - likely pre-renal etiology due to intravascular depletion - renally dose all meds until serum Cr corrects 5. Poorly Controlled Hypertension: resolving - due to medication non-compliance - Norvasc 10mg po daily - Clonidine 0.1mg po TID PRN SBP>165 - Lisinopril 30mg PO daily 6. GI Bleed - complaint of black stools - Stool Occult Blood, Culture, C.diff ordered - Hgb steadily downtrending since admission, possibly 2/2 to aggressive fluids 7. Hypokalemia - Likely 2/2 insulin - Will replace as needed and continue to monitor DVT PPx: Heparin SQ tid GI PPx: Protonix Case discussed with attending, Dr. Moreno <Bob Moreno - Last Filed: 06/28/16 14:35> Objective - Vital Signs/Intake and Output Vital Signs (last 24 hours): Temp Pulse Resp BP Pulse Ox 97.9 F 84 10 L 137/62 98 06/28/16 08:00 06/28/16 09:08 06/28/16 08:00 06/28/16 09:08 06/28/16 08:00 Intake and Output: 06/28/16 06/28/16 06:59 18:59 Intake Total 5120 Output Total 6251 Balance -1131 - Medications Medications: Current Medications Acetaminophen (Tylenol 325mg Tab) 650 mg PO Q8 PRN PRN Reason: Fever >100.4 F Albuterol/Ipratropium (Duoneb 3 Mg/0.5 Mg (3 Ml) Ud) 3 ml IH Q2H PRN PRN Reason: Shortness of Breath Last Admin: 06/23/16 23:50 Dose: 3 ml Albuterol/Ipratropium (Duoneb 3 Mg/0.5 Mg (3 Ml) Ud) 3 ml IH [id number] [facility] Last Admin: 06/28/16 13:57 Dose: 3 ml Amlodipine Besylate (Norvasc) 10 mg PO DAILY [facility] Last Admin: 06/28/16 09:08 Dose: 10 mg Clonidine HCl (Catapres) 0.1 mg PO TID PRN PRN Reason: Systolic Blood Pressure Last Admin: 06/26/16 16:25 Dose: 0.1 mg Guaifenesin (Robitussin) 100 mg PO Q4H PRN PRN Reason: Cough Last Admin: 06/25/16 20:23 Dose: 100 mg Heparin Sodium (Porcine) (Heparin) 5,000 units SC Q12 LYN PRN Reason: Protocol Last Admin: 06/28/16 09:08 Dose: 5,000 units Sodium Chloride (Sodium Chloride 0.9%) 1,000 mls @ 100 mls/hr IV .Q10H [facility] Last Admin: 06/26/16 22:07 Dose: 100 mls/hr Clindamycin Phosphate 600 mg/ (Sodium Chloride) 54 mls @ 102 mls/hr IVPB Q8 LYN PRN Reason: Protocol Last Admin: 06/28/16 05:37 Dose: 102 mls/hr Linezolid (Zyvox 600mg/300ml D5w) 600 mg in 300 mls @ 200 mls/hr IVPB Q12 L[facility] PRN Reason: Protocol Last Admin: 06/28/16 11:00 Dose: 200 mls/hr Nafcillin Sodium 2 gm/ Sodium (Chloride) 100 mls @ 100 mls/hr IVPB Q6 [facility] PRN Reason: Protocol Last Admin: 06/28/16 13:57 Dose: 100 mls/hr Ibuprofen (Motrin Tab) 600 mg PO Q8 PRN PRN Reason: Fever >100.4 F Last Admin: 06/27/16 23:32 Dose: 600 mg Insulin Detemir (Levemir) 20 unit SC HS [facility] Last Admin: 06/27/16 22:57 Dose: 20 unit Insulin Human Lispro (Humalog Low) 0 units SC ACHS [facility] PRN Reason: Protocol Last Admin: 06/28/16 08:25 Dose: Not Given Insulin Human Lispro (Humalog) 10 units SC AC [facility] Last Admin: 06/28/16 08:45 Dose: 10 units Lisinopril (Zestril) 30 mg PO DAILY [facility] Last Admin: 06/28/16 09:08 Dose: 30 mg Morphine Sulfate (Morphine) 1 mg IVP Q4H PRN PRN Reason: Pain, moderate (4-7) Pantoprazole Sodium (Protonix Ec Tab) 40 mg PO ACB [facility] Last Admin: 06/28/16 08:50 Dose: 40 mg - Labs Labs: 06/28/16 07:00 06/28/16 07:00 PT 10.7 Seconds (9.9-11.8) 06/19/16 18:15 INR 0.99 (0.93-1.08) 06/19/16 18: APTT 30.8 Seconds (23.7-30.8) 06/19/16 18:15 Attending/Attestation - Attestation I have personally seen and examined this patient.: Yes I have fully participated in the care of the patient.: Yes I have reviewed all pertinent clinical information, including history, physical exam and plan: Yes Notes (Text): 06/28/16 14:24 attending note; Patient seen and examined with resident. Agree with the above note with some exceptions. This is a 61 year old man with history of HTN and NIDDM who presented with generalized weakness, polydysia, polyuria, hemoptysis, cough with greenish/ brown colored sputum, intermittent confusion and found to have DKA, hemoptysis and sepsis due to a multifocal pneumonia. patient was also found to have MSSA bacteremia. patient had MAXIMUM TEMPERE of [address] chest showed multifocal pneumonia/nodular changes. No significant improvement noted. AFB x 3 is negative. continue clindamycin and naficillin. case discussed with ID in detail. Repeat blood culture on 06/22 is positive for MSSA. Blood culture from 06/24 is negative so far. TTE showed no vegetations. Case discussed with cardiology Dr. Dong in detail. Plan for JANEL on Wednesday. Anemia; probably secondary to sepsis. iron studies ordered. Stool for occult blood ordered. No active bleeding noted. Patient has some bloods tinged sputum on and off. Currently patient is on Levemir. Follow up with endocrinology . Diabetic nurse educator evaluation appreciated. Dietary education given.
[2016-06-28] MEDS: Nafcillin 2 GM in Sodium Chloride 0.9% 100 ML IVPB SCH ×3 (13:57→18:40)
[2016-06-28] MEDS ORDERED: Potassium Chloride 20 mEq ER Tab PO ONE (14:00)
--- NOTE | 2016-06-28 14:06 | PN ---
DATE: 06/28/2016 ROOM: 569 This is a 61-year-old male with recent uncontrolled type 2 insulin-requiring diabetes, now being foll owed closely for metabolic management. He has ongoing IV antibiotic management for an acute pneumoni tis and continues to have glycemic fluctuations which are improving thereof at this time. His latest chemistry showed a BUN of 6, sodium 139, potassium 2.9, chloride 104, CO2 29, glucose 110 and creatinine 1.2. His glucose values have ranged from 170-237 mg/dL. So at this time, we will continue the same basal and bolus insulin regimen to allow for dose equilibr ation and keep him on the modified dosing of Humalog given as 10 units subQ t.i.d. before meals as or dered. We will continue the Levemir given as 20 units subQ at bedtime daily as given. His oral inta ke remains variable, but has improved otherwise, as per the nursing staff. We will obtain serial james mistries and supplement accordingly as needed. We will follow. Sherri Hurst MD cc: [id number] TT: 06/28/2016 14:05:30 Confirmation # [id number] Dictation # [id number] en
--- NOTE | 2016-06-28 17:47 | CP.PCM.PN ---
Subjective - Date & Time of Evaluation Date of Evaluation: 06/28/16 Time of Evaluation: 16:30 - Subjective Subjective: Infectious Disease Follow Up: June 28, 2016 61 yo male with presentation of 2 days of generalized weakness, polydysia, polyuria, hemoptysis, cough with green-colored sputum, intermittent confusion and some mild SOB. On CT scan, tree in bud formations seen. Patient placed under respiratory isolation for TB workup. The patient has no recent travel history. 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 Extensive pulmonary findings on CT scan. Case discussed with Dr. Moreno. Culture of blood showing gram positive cocci on multiple cultures with FISH testing showing Staph Aureus. Last Vancomycin level at 13.4. Acid-Fast Bacilli Sputum evaluations x 3 are negative. Multiple cultures with MSSA growth. Patient feeling better overall. Patient still with persistent cough. Imaging studies suggest worsening infiltrate. On Nafcillin and Vancomycin currently. For JANEL on Wednesday. Changed Vancomycin IV to Zyvox for better lung penetration Wednesday. Still with fever today up to 101.1 F. Cannot rule out malignancy as part of differential. Objective - Vital Signs/Intake and Output Vital Signs (last 24 hours): Temp Pulse Resp BP Pulse Ox 101.1 F H 75 20 152/70 H 98 06/28/16 17:05 06/28/16 16:00 06/28/16 16:00 06/28/16 16:00 06/28/16 08:00 Intake and Output: 06/28/16 06/28/16 06:59 18:59 Intake Total 5120 920 Output Total 6251 2500 Balance -1131 -7150 - Medications Medications: Current Medications Acetaminophen (Tylenol 325mg Tab) 650 mg PO Q8 PRN PRN Reason: Fever >100.4 F Last Admin: 06/28/16 17:05 Dose: 650 mg Albuterol/Ipratropium (Duoneb 3 Mg/0.5 Mg (3 Ml) Ud) 3 ml IH Q2H PRN PRN Reason: Shortness of Breath Last Admin: 06/23/16 23:50 Dose: 3 ml Albuterol/Ipratropium (Duoneb 3 Mg/0.5 Mg (3 Ml) Ud) 3 ml IH [id number] [facility] Last Admin: 06/28/16 13:57 Dose: 3 ml Amlodipine Besylate (Norvasc) 10 mg PO DAILY [facility] Last Admin: 06/28/16 09:08 Dose: 10 mg Clonidine HCl (Catapres) 0.1 mg PO TID PRN PRN Reason: Systolic Blood Pressure Last Admin: 06/26/16 16:25 Dose: 0.1 mg Guaifenesin (Robitussin) 100 mg PO Q4H PRN PRN Reason: Cough Last Admin: 06/25/16 20:23 Dose: 100 mg Heparin Sodium (Porcine) (Heparin) 5,000 units SC Q12 [facility] PRN Reason: Protocol Last Admin: 06/28/16 09:08 Dose: 5,000 units Sodium Chloride (Sodium Chloride 0.9%) 1,000 mls @ 100 mls/hr IV .Q10H [facility] Last Admin: 06/26/16 22:07 Dose: 100 mls/hr Clindamycin Phosphate 600 mg/ (Sodium Chloride) 54 mls @ 102 mls/hr IVPB Q8 [facility] PRN Reason: Protocol Last Admin: 06/28/16 15:17 Dose: 102 mls/hr Linezolid (Zyvox 600mg/300ml D5w) 600 mg in 300 mls @ 200 mls/hr IVPB Q12 [facility] PRN Reason: Protocol Last Admin: 06/28/16 11:00 Dose: 200 mls/hr Nafcillin Sodium 2 gm/ Sodium (Chloride) 100 mls @ 100 mls/hr IVPB Q6 [facility] PRN Reason: Protocol Last Admin: 06/28/16 17:04 Dose: 100 mls/hr Ibuprofen (Motrin Tab) 600 mg PO Q8 PRN PRN Reason: Fever >100.4 F Last Admin: 06/27/16 23:32 Dose: 600 mg Insulin Detemir (Levemir) 20 unit SC HS [facility] Last Admin: 06/27/16 22:57 Dose: 20 unit Insulin Human Lispro (Humalog Low) 0 units SC ACHS [facility] PRN Reason: Protocol Last Admin: 06/28/16 16:53 Dose: Not Given Insulin Human Lispro (Humalog) 10 units SC AC [facility] Last Admin: 06/28/16 17:04 Dose: 10 units Lisinopril (Zestril) 30 mg PO DAILY [facility] Last Admin: 06/28/16 09:08 Dose: 30 mg Morphine Sulfate (Morphine) 1 mg IVP Q4H PRN PRN Reason: Pain, moderate (4-7) Pantoprazole Sodium (Protonix Ec Tab) 40 mg PO ACB [facility] Last Admin: 06/28/16 08:50 Dose: 40 mg - Labs Labs: 06/28/16 07:00 06/28/16 07:00 PT 10.7 Seconds (9.9-11.8) 06/19/16 18:15 INR 0.99 (0.93-1.08) 06/19/16 18:15 APTT 30.8 Seconds (23.7-30.8) 06/19/16 18:15 - Constitutional Appears: Non-toxic, No Acute Distress, Chronically Ill - Head Exam Head Exam: ATRAUMATIC, NORMOCEPHALIC - Eye Exam Eye Exam: EOMI, PERRL Pupil Exam: NORMAL ACCOMODATION, PERRL - ENT Exam ENT Exam: Mucous Membranes Moist, Normal External Ear Exam, TM's Normal Bilaterally - Neck Exam Neck Exam: Full ROM, Normal Inspection - Respiratory Exam Respiratory Exam: Decreased Breath Sounds, Rhonchi, NORMAL BREATHING PATTERN. absent: Rales, Wheezes Additional comments: mild rhonchi - Cardiovascular Exam Cardiovascular Exam: REGULAR RHYTHM, RRR, +S1, +S2 - GI/Abdominal Exam GI & Abdominal Exam: Soft, Normal Bowel Sounds. absent: Distended, Tenderness - Extremities Exam Extremities Exam: Full ROM, Normal Inspection - Neurological Exam Neurological Exam: Alert, Awake, CN II-XII Intact, Oriented x3 - Psychiatric Exam Psychiatric exam: Normal Affect, Normal Mood - Skin Skin Exam: Intact, Normal Color Assessment and Plan - Assessment and Plan (Free Text) Assessment: 61 yo male presenting with Uncontrolled DM and DKA. Incidental finding of pneumonic picture with a possibility for TB. The patient is under isolation for TB. Risks for TB appear to be low. The patient for acid-fast testing of the sputum x 3. Cannot rule out ALISON, fungal, or severe bacterial infections such as Staph Aureus or Strep Pneumonia. He is being treated for his DKA. On Vancomycin and Zosyn. gram positive cocci in blood cultures. May need to consider Teflaro instead to get better concentrations in the lung for MRSA. Supportive care. AFB x 3 negative. Multiple blood cultures with gram positive cocci. FISH indicating Staph Aureus. On Vancomycin and Zosyn currently. Would obtain Quantiferon for reference point... a positive Quantiferon would not impact management of the case at this time. This test would only indicate patient exposure during his lifetime. Would obtain echocardiogram as well. MSSA in multiple cultures. TTE does not show vegetations. The patient appears to be improving. Switched Zosyn to Nafcillin yesterday. D/C vancomycin once fevers subside. Persistent cough. X-ray of chest and CT Abd/Pel showing worsening left sided infiltrates. CT of the Chest is pending. Switch Vancomycin to Zyvox on Wednesday. On day 3 of Clindamycin. For JANEL Wednesday. Persistent fevers and cough. Cannot rule out malignancy as part of the differential. Thank you for allowing me to participate in the care of this patient, we will follow with you.
[2016-06-28] MEDS: Insulin Detemir 100 units/ml Vial (Levemir) SC SCH (22:21)
[2016-06-29] MEDS: Sodium Chloride 0.9% 1,000 ML IV SCH ×2 (00:25→09:34)
[2016-06-29] MEDS: Nafcillin 2 GM in Sodium Chloride 0.9% 100 ML IVPB SCH ×4 (00:25→17:12)
--- NOTE | 2016-06-29 01:38 | CARD ---
APPROVED REPORT EKG Measurement Heart [id number] <Conclusion> Normal sinus rhythm Possible Left atrial enlargement Nonspecific T wave abnormality Abnormal ECG
[2016-06-29] MEDS: Albuterol-Ipratrop 3 mg / 0.5 (3 ml) UD IH SCH ×3 (01:59→20:05)
[2016-06-29 07:33] LABS: ADD MANUAL DIFF? NO
[2016-06-29 07:42] LABS: BASO # 0.02 K/mm3 (0.0-2.0); BASO % 0.2 % (0.0-3.0); EOS # 0.1 (0.0-0.7); EOS % 0.8 % (1.5-5.0); GRAN # 9.71 (1.4-6.5); GRAN % 81.1 % (50.0-68.0); HEMATOCRIT 30.4 % (42.0-52.0); LYMPH # 1.6 (1.2-3.4); LYMPH % 13.5 % (22.0-35.0); MEAN CELL VOLUME 84.9 fL (80.0-105.0); MEAN CORPUSCULAR HEMOGLOBIN 27.1 pg (25.0-35.0); MEAN CORPUSCULAR HGB CONC 31.9 g/dl (31.0-37.0); MEAN PLATELET VOLUME 11.1 fl (7.0-11.0); MONO # 0.5 (0.1-0.6); MONO % 4.4 % (1.0-6.0); PLATELET COUNT 323 10^3/uL (120.0-450.0); RED CELL DISTRIBUTION WIDTH 14.5 % (11.5-14.5)
[2016-06-29] MEDS: Insulin Lispro 1 UNITS/0.01 ML SC SCH ×3 (07:57→17:14)
[2016-06-29] MEDS: Pantoprazole 40 mg EC Tab PO SCH (07:58)
[2016-06-29] MEDS: Insulin Lispro (humaLOG) LOW Coverage SC SCH ×4 (07:58→22:51)
[2016-06-29 08:19] LABS: ALB/GLOB RATIO 0.6 (1.1-1.8); ALKALINE PHOSPHATASE 78 U/L (38-133); ALT/SGPT 44 U/L (7-56); AST/SGOT 33 U/L (15-59); BILIRUBIN,TOTAL 0.5 mg/dL (0.2-1.3); BLOOD UREA NITROGEN 5 mg/dL (7-21); CALCIUM 7.7 mg/dL (8.4-10.5); CARBON DIOXIDE 28 mmol/L (21-33); CHLORIDE 105 mmol/L (95-110); GFR AFRICAN-AMERICAN > 60; GLUCOSE,RANDOM 138 mg/dL (70-110); POTASSIUM 3.7 mmol/L (3.6-5.0); SODIUM 138 mmol/L (132-148); TOTAL PROTEIN 6.2 g/dL (5.8-8.3)
[2016-06-29 08:21] LABS: IRON 21 ug/dL (45-180)
[2016-06-29] MEDS: Linezolid 600 mg in D5W 300 ml 600 MG/300 ML BAG IVPB SCH ×2 (09:27→21:07)
[2016-06-29 13:21] LABS: FOLATE 4.3 ng/mL
--- NOTE | 2016-06-29 15:18 | CP.PCM.PN ---
Subjective - Date & Time of Evaluation Date of Evaluation: 06/29/16 Time of Evaluation: 15:09 - Subjective Subjective: Patient has very poor veins,needs iv access. Objective - Vital Signs/Intake and Output Vital Signs (last 24 hours): Temp Pulse Resp BP Pulse Ox 99.8 F H 95 H 20 155/73 H 97 06/29/16 07:30 06/29/16 09:33 06/29/16 07:30 06/29/16 09:33 06/29/16 07:30 Intake and Output: 06/29/16 06/29/16 06:59 18:59 Intake Total 860 520 Output Total 2700 Balance -1840 520 - Medications Medications: Current Medications Acetaminophen (Tylenol 325mg Tab) 650 mg PO Q8 PRN PRN Reason: Fever >100.4 F Last Admin: 06/28/16 17:05 Dose: 650 mg Albuterol/Ipratropium (Duoneb 3 Mg/0.5 Mg (3 Ml) Ud) 3 ml IH Q2H PRN PRN Reason: Shortness of Breath Last Admin: 06/23/16 23:50 Dose: 3 ml Albuterol/Ipratropium (Duoneb 3 Mg/0.5 Mg (3 Ml) Ud) 3 ml IH [id number] [facility] Last Admin: 06/29/16 07:35 Dose: Not Given Amlodipine Besylate (Norvasc) 10 mg PO DAILY [facility] Last Admin: 06/29/16 09:33 Dose: 10 mg Clonidine HCl (Catapres) 0.1 mg PO TID PRN PRN Reason: Systolic Blood Pressure Last Admin: 06/26/16 16:25 Dose: 0.1 mg Guaifenesin (Robitussin) 100 mg PO Q4H PRN PRN Reason: Cough Last Admin: 06/25/16 20:23 Dose: 100 mg Heparin Sodium (Porcine) (Heparin) 5,000 units SC Q12 [facility] PRN Reason: Protocol Last Admin: 06/29/16 09:27 Dose: 5,000 units Sodium Chloride (Sodium Chloride 0.9%) 1,000 mls @ 100 mls/hr IV .Q10H [facility] Last Admin: 06/29/16 09:34 Dose: 100 mls/hr Clindamycin Phosphate 600 mg/ (Sodium Chloride) 54 mls @ 102 mls/hr IVPB Q8 [facility] PRN Reason: Protocol Last Admin: 06/29/16 13:26 Dose: 102 mls/hr Linezolid (Zyvox 600mg/300ml D5w) 600 mg in 300 mls @ 200 mls/hr IVPB Q12 [facility] PRN Reason: Protocol Last Admin: 06/29/16 09:27 Dose: 200 mls/hr Nafcillin Sodium 2 gm/ Sodium (Chloride) 100 mls @ 100 mls/hr IVPB Q6 [facility] PRN Reason: Protocol Last Admin: 06/29/16 12:32 Dose: 100 mls/hr Ibuprofen (Motrin Tab) 600 mg PO Q8 PRN PRN Reason: Fever >100.4 F Last Admin: 06/27/16 23:32 Dose: 600 mg Insulin Detemir (Levemir) 20 unit SC HS [facility] Last Admin: 06/28/16 22:21 Dose: 20 unit Insulin Human Lispro (Humalog Low) 0 units SC ACHS [facility] PRN Reason: Protocol Last Admin: 06/29/16 12:32 Dose: Not Given Insulin Human Lispro (Humalog) 10 units SC AC [facility] Last Admin: 06/29/16 12:28 Dose: 10 units Lisinopril (Zestril) 30 mg PO DAILY [facility] Last Admin: 06/29/16 09:33 Dose: 30 mg Morphine Sulfate (Morphine) 1 mg IVP Q4H PRN PRN Reason: Pain, moderate (4-7) Pantoprazole Sodium (Protonix Ec Tab) 40 mg PO ACB [facility] Last Admin: 06/29/16 07:58 Dose: 40 mg - Labs Labs: 06/29/16 07:10 06/29/16 07:10 PT 10.7 Seconds (9.9-11.8) 06/19/16 18:15 INR 0.99 (0.93-1.08) 06/19/16 18:15 APTT 30.8 Seconds (23.7-30.8) 06/19/16 18:15 - Constitutional Appears: No Acute Distress Assessment and Plan - Assessment and Plan (Free Text) Assessment: Poor venous access Plan: Hep lock inserted in the R hand. # 24 angiocath used.
--- NOTE | 2016-06-29 16:48 | PN ---
DATE: 06/29/2016 LOCATION: Room 569. SUBJECTIVE: This is a 61-year-old male with recent uncontrolled type 2 insulin-requiring diabetes, p resenting here with diabetic ketoacidosis and dehydration. Currently undergoing IV antibiotic manage ment for acute pneumonia and is now being followed closely at this time from the diabetic viewpoint. LABORATORY DATA: His glycemic levels are fluctuating, but much improved at this time, and have range d from 118 to 154 and 158 mg/dL. His latest chemistries include a BUN of 5, sodium 138, potassium 3. 7, chloride 105, CO2 28, glucose 138, and creatinine 1.2. ASSESSMENT AND PLAN: So, at this time, will continue the same basal and bolus insulin regimen to all ow for dose equilibration and keep him on the Levemir given as 20 units subcutaneous at bedtime daily and Humalog given as 10 units subcutaneous t.i.d. before meals, as ordered. Will titrate incrementa lly as indicated to optimize metabolic control. Will follow. Sherri Hurst MD cc: [phone] TT: 06/29/2016 16:47:48 Confirmation # [id number] Dictation # [id number] chio
--- NOTE | 2016-06-29 18:23 | CP.PCM.PN ---
Subjective - Date & Time of Evaluation Date of Evaluation: 06/29/16 Time of Evaluation: 16:15 - Subjective Subjective: Infectious Disease Follow Up: June 29, 2016 61 yo male with presentation of 2 days of generalized weakness, polydysia, polyuria, hemoptysis, cough with green-colored sputum, intermittent confusion and some mild SOB. On CT scan, tree in bud formations seen. Patient placed under respiratory isolation for TB workup. The patient has no recent travel history. 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 Extensive pulmonary findings on CT scan. Case discussed with Dr. Moreno. Culture of blood showing gram positive cocci on multiple cultures with FISH testing showing Staph Aureus. Last Vancomycin level at 13.4. Acid-Fast Bacilli Sputum evaluations x 3 are negative. Multiple cultures with MSSA growth. Patient feeling better overall. Patient still with persistent cough. Imaging studies suggest worsening infiltrate. On Nafcillin and Vancomycin currently. For JANEL on Wednesday. Changed Vancomycin IV to Zyvox for better lung penetration Wednesday. Still with fever up to 101.1 F over the past 24 hours. Cannot rule out malignancy as part of differential. Awaiting results of JANEL. Objective - Vital Signs/Intake and Output Vital Signs (last 24 hours): Temp Pulse Resp BP Pulse Ox 99.8 F H 95 H 20 155/73 H 97 06/29/16 07:30 06/29/16 09:33 06/29/16 07:30 06/29/16 09:33 06/29/16 07:30 Intake and Output: 06/29/16 06/29/16 06:59 18:59 Intake Total 860 520 Output Total 2700 Balance -1840 520 - Medications Medications: Current Medications Acetaminophen (Tylenol 325mg Tab) 650 mg PO Q8 PRN PRN Reason: Fever >100.4 F Last Admin: 06/28/16 17:05 Dose: 650 mg Albuterol/Ipratropium (Duoneb 3 Mg/0.5 Mg (3 Ml) Ud) 3 ml IH Q2H PRN PRN Reason: Shortness of Breath Last Admin: 06/23/16 23:50 Dose: 3 ml Albuterol/Ipratropium (Duoneb 3 Mg/0.5 Mg (3 Ml) Ud) 3 ml IH [id number] [facility] Last Admin: 06/29/16 07:35 Dose: Not Given Amlodipine Besylate (Norvasc) 10 mg PO DAILY [facility] Last Admin: 06/29/16 09:33 Dose: 10 mg Clonidine HCl (Catapres) 0.1 mg PO TID PRN PRN Reason: Systolic Blood Pressure Last Admin: 06/26/16 16:25 Dose: 0.1 mg Guaifenesin (Robitussin) 100 mg PO Q4H PRN PRN Reason: Cough Last Admin: 06/25/16 20:23 Dose: 100 mg Heparin Sodium (Porcine) (Heparin) 5,000 units SC Q12 [facility] PRN Reason: Protocol Last Admin: 06/29/16 09:27 Dose: 5,000 units Sodium Chloride (Sodium Chloride 0.9%) 1,000 mls @ 100 mls/hr IV .Q10H [facility] Last Admin: 06/29/16 09:34 Dose: 100 mls/hr Clindamycin Phosphate 600 mg/ (Sodium Chloride) 54 mls @ 102 mls/hr IVPB Q8 [facility] PRN Reason: Protocol Last Admin: 06/29/16 13:26 Dose: 102 mls/hr Linezolid (Zyvox 600mg/300ml D5w) 600 mg in 300 mls @ 200 mls/hr IVPB Q12 [facility] PRN Reason: Protocol Last Admin: 06/29/16 09:27 Dose: 200 mls/hr Nafcillin Sodium 2 gm/ Sodium (Chloride) 100 mls @ 100 mls/hr IVPB Q6 [facility] PRN Reason: Protocol Last Admin: 06/29/16 17:12 Dose: 100 mls/hr Ibuprofen (Motrin Tab) 600 mg PO Q8 PRN PRN Reason: Fever >100.4 F Last Admin: 06/27/16 23:32 Dose: 600 mg Insulin Detemir (Levemir) 20 unit SC HS [facility] Last Admin: 06/28/16 22:21 Dose: 20 unit Insulin Human Lispro (Humalog Low) 0 units SC ACHS [facility] PRN Reason: Protocol Last Admin: 06/29/16 17:14 Dose: Not Given Insulin Human Lispro (Humalog) 10 units SC AC [facility] Last Admin: 06/29/16 17:14 Dose: 10 units Lisinopril (Zestril) 30 mg PO DAILY [facility] Last Admin: 06/29/16 09:33 Dose: 30 mg Morphine Sulfate (Morphine) 1 mg IVP Q4H PRN PRN Reason: Pain, moderate (4-7) Pantoprazole Sodium (Protonix Ec Tab) 40 mg PO ACB [facility] Last Admin: 06/29/16 07:58 Dose: 40 mg - Labs Labs: 06/29/16 07:10 06/29/16 07:10 PT 10.7 Seconds (9.9-11.8) 06/19/16 18:15 INR 0.99 (0.93-1.08) 06/19/16 18:15 APTT 30.8 Seconds (23.7-30.8) 06/19/16 18:15 - Constitutional Appears: Non-toxic, No Acute Distress, Chronically Ill - Head Exam Head Exam: ATRAUMATIC, NORMOCEPHALIC - Eye Exam Eye Exam: EOMI, PERRL Pupil Exam: NORMAL ACCOMODATION, PERRL - ENT Exam ENT Exam: Mucous Membranes Moist, Normal External Ear Exam, TM's Normal Bilaterally - Neck Exam Neck Exam: Full ROM, Normal Inspection - Respiratory Exam Respiratory Exam: Decreased Breath Sounds, Rhonchi, NORMAL BREATHING PATTERN. absent: Rales, Wheezes Additional comments: mild rhonchi - Cardiovascular Exam Cardiovascular Exam: REGULAR RHYTHM, RRR, +S1, +S2 - GI/Abdominal Exam GI & Abdominal Exam: Soft, Normal Bowel Sounds. absent: Distended, Tenderness - Extremities Exam Extremities Exam: Full ROM, Normal Inspection - Neurological Exam Neurological Exam: Alert, Awake, CN II-XII Intact, Oriented x3 - Psychiatric Exam Psychiatric exam: Normal Affect, Normal Mood - Skin Skin Exam: Intact, Normal Color Assessment and Plan - Assessment and Plan (Free Text) Assessment: 61 yo male presenting with Uncontrolled DM and DKA. Incidental finding of pneumonic picture with a possibility for TB. The patient is under isolation for TB. Risks for TB appear to be low. The patient for acid-fast testing of the sputum x 3. Cannot rule out ALISON, fungal, or severe bacterial infections such as Staph Aureus or Strep Pneumonia. He is being treated for his DKA. On Vancomycin and Zosyn. gram positive cocci in blood cultures. May need to consider Teflaro instead to get better concentrations in the lung for MRSA. Supportive care. AFB x 3 negative. Multiple blood cultures with gram positive cocci. FISH indicating Staph Aureus. On Vancomycin and Zosyn currently. Would obtain Quantiferon for reference point... a positive Quantiferon would not impact management of the case at this time. This test would only indicate patient exposure during his lifetime. Would obtain echocardiogram as well. MSSA in multiple cultures. TTE does not show vegetations. The patient appears to be improving. Switched from Zosyn to Nafcillin during this hospitalization. Persistent cough. X-ray of chest and CT Abd/Pel showing worsening left sided infiltrates. CT of the Chest is pending. Switch Vancomycin to Zyvox on Wednesday. On day 4 of Clindamycin. Planned for JANEL Wednesday (today). Persistent fevers and cough. Cannot rule out malignancy as part of the differential. Await results of the JANEL. Thank you for allowing me to participate in the care of this patient, we will follow with you.
--- NOTE | 2016-06-29 18:46 | CP.PCM.PN ---
<Aaron Oneal - Last Filed: 06/29/16 22:41> Subjective - Date & Time of Evaluation Date of Evaluation: 06/29/16 Time of Evaluation: 07:45 - Subjective Subjective: HOSPITALISTS PROGRESS NOTE Pt is seen and examined at bedside. Patient was febrile overnight with temp of 101.1. This morning, patient denies having any fevers/chills, CP, SOB, abd pain , N/V/D/C. Patient did not like the breathing treatments and and declined the morning treatment, but said he would take the next one. He has been able to walk around the floor 4 times yesterday. Objective - Vital Signs/Intake and Output Vital Signs (last 24 hours): Temp Pulse Resp BP Pulse Ox 99.8 F H 95 H 20 155/73 H 97 06/29/16 07:30 06/29/16 09:33 06/29/16 07:30 06/29/16 09:33 06/29/16 07:30 Intake and Output: 06/29/16 06/29/16 06:59 18:59 Intake Total 860 520 Output Total 2700 Balance -1840 520 - Medications Medications: Current Medications Acetaminophen (Tylenol 325mg Tab) 650 mg PO Q8 PRN PRN Reason: Fever >100.4 F Last Admin: 06/28/16 17:05 Dose: 650 mg Albuterol/Ipratropium (Duoneb 3 Mg/0.5 Mg (3 Ml) Ud) 3 ml IH Q2H PRN PRN Reason: Shortness of Breath Last Admin: 06/23/16 23:50 Dose: 3 ml Albuterol/Ipratropium (Duoneb 3 Mg/0.5 Mg (3 Ml) Ud) 3 ml IH [id number] LYN Last Admin: 06/29/16 07:35 Dose: Not Given Amlodipine Besylate (Norvasc) 10 mg PO DAILY [facility] Last Admin: 06/29/16 09:33 Dose: 10 mg Clonidine HCl (Catapres) 0.1 mg PO TID PRN PRN Reason: Systolic Blood Pressure Last Admin: 06/26/16 16:25 Dose: 0.1 mg Guaifenesin (Robitussin) 100 mg PO Q4H PRN PRN Reason: Cough Last Admin: 06/25/16 20:23 Dose: 100 mg Heparin Sodium (Porcine) (Heparin) 5,000 units SC Q12 LYN PRN Reason: Protocol Last Admin: 06/29/16 09:27 Dose: 5,000 units Sodium Chloride (Sodium Chloride 0.9%) 1,000 mls @ 100 mls/hr IV .Q10H [facility] Last Admin: 06/29/16 09:34 Dose: 100 mls/hr Clindamycin Phosphate 600 mg/ (Sodium Chloride) 54 mls @ 102 mls/hr IVPB Q8 LYN PRN Reason: Protocol Last Admin: 06/29/16 13:26 Dose: 102 mls/hr Linezolid (Zyvox 600mg/300ml D5w) 600 mg in 300 mls @ 200 mls/hr IVPB Q12 [facility] PRN Reason: Protocol Last Admin: 06/29/16 09:27 Dose: 200 mls/hr Nafcillin Sodium 2 gm/ Sodium (Chloride) 100 mls @ 100 mls/hr IVPB Q6 [facility]YN PRN Reason: Protocol Last Admin: 06/29/16 17:12 Dose: 100 mls/hr Ibuprofen (Motrin Tab) 600 mg PO Q8 PRN PRN Reason: Fever >100.4 F Last Admin: 06/27/16 23:32 Dose: 600 mg Insulin Detemir (Levemir) 20 unit SC HS [facility] Last Admin: 06/28/16 22:21 Dose: 20 unit Insulin Human Lispro (Humalog Low) 0 units SC ACHS [facility] PRN Reason: Protocol Last Admin: 06/29/16 17:14 Dose: Not Given Insulin Human Lispro (Humalog) 10 units SC AC [facility] Last Admin: 06/29/16 17:14 Dose: 10 units Lisinopril (Zestril) 30 mg PO DAILY [facility] Last Admin: 06/29/16 09:33 Dose: 30 mg Morphine Sulfate (Morphine) 1 mg IVP Q4H PRN PRN Reason: Pain, moderate (4-7) Pantoprazole Sodium (Protonix Ec Tab) 40 mg PO ACB [facility] Last Admin: 06/29/16 07:58 Dose: 40 mg - Labs Labs: 06/29/16 07:10 06/29/16 07:10 PT 10.7 Seconds (9.9-11.8) 06/19/16 18:15 INR 0.99 (0.93-1.08) 06/19/16 18:15 APTT 30.8 Seconds (23.7-30.8) 06/19/16 18:15 - Constitutional Appears: Non-toxic, No Acute Distress - Head Exam Head Exam: ATRAUMATIC, NORMOCEPHALIC - Eye Exam Eye Exam: EOMI - ENT Exam ENT Exam: Mucous Membranes Moist - Respiratory Exam Respiratory Exam: Rhonchi, NORMAL BREATHING PATTERN - Cardiovascular Exam Cardiovascular Exam: REGULAR RHYTHM, RRR, +S1, +S2. absent: JVD - GI/Abdominal Exam GI & Abdominal Exam: Soft, Tenderness, Normal Bowel Sounds - Extremities Exam Extremities Exam: absent: Joint Swelling, Pedal Edema - Back Exam Back Exam: tenderness. absent: rash noted - Neurological Exam Neurological Exam: Alert, Awake, Oriented x3 - Psychiatric Exam Psychiatric exam: Flat Affect, Normal Mood - Skin Skin Exam: Dry, Intact, Normal Color, Warm Assessment and Plan - Assessment and Plan (Free Text) Assessment: The patient is a 61 year old man with history of HTN and NIDDM who is being admitted to the ICU for DKA, hemoptysis and sepsis 2/2 PNA. Plan: 1. Diabetic Ketoacidosis (without coma): resolving -due to medication non-compliance -HgA1c 16.9 -Endo consult - Dr. Hurst -change to ISS -Levemir 24u SC HS -Humalog 14u AC -Lispro Low SS -Diabetic Diet -Diabetic Education 2. Sepsis 2/2 Pneumonia: -empiric IV antibiotics -procalcitonin 20.42 on 06/19 -procalcitonin 1.09 on 06/26 -lactic acid trending down -HIV non-reactive -ID consult Dr. Hankins - will follow ID recs -acid-fast testing of the sputum x 4 negative -MSSA per cultures 06/19, 06/21, 06/22 -Cultures from 06/24 show no growth after 5 days -Cultures from 06/27 show no growth after 2 days -On Vancomycin and Nafcilln 2gm -Zyvox for better lung penetration. -Clindamycin -added Nafcillin -C. Diff Ag & Tox negative 06/29 -ECHO- please see full report -LV normal size and function -mild concentric LV hypertrophy -no report of vegetations -JANEL scheduled for Today or Tomorrow -CT Chest/Abdomen/Pelvis 06/20 - please see full report -shows mutifocal PNA w/ Tree/ bed changes. -Unclear if the tree/bud changes were present fpc and not the new infiltrates are superimposed. -CT Chest with IV contrast 06/26 - please see full report -Multiple areas of consolidation are seen in both lungs, no sig zacarias from previous study -CT Abd/Pelvis with PO contrast - please see full report -worsening BL lower lobe infiltrates -no evidence of acute changes/abscess in report -CT Lumbosacral spine with IV contrast - please see full report -no evidence of acute changes/abscess in report 3. Acute Hemoptysis: resolved -ddx: TB vs malignancy -will rule out TB with three sets of sputum AFB samples -avoid anticoagulation -given infiltrates on CXR, absence of respiratory distress and a normal O2 sat, suspicion for acute PE is low -however, if pt's symptoms deteriorate despite IV antibiotics, will then consider a CT-PA 4. Acute Kidney Injury: resolved -likely pre-renal etiology due to intravascular depletion -serum Cr expected to correct after aggressive IVF's -Cr dropped to 1.1 -renally dose all meds until serum Cr corrects 5. Poorly Controlled Hypertension: resolving -due to medication non-compliance -Norvasc 10mg po daily -Clonidine 0.1mg po TID PRN SBP>165 -Lisinopril 30mg PO daily 6. GI Bleed/Anemia -complaint of black stools -Stool Occult Blood, Culture, C.diff ordered -Hgb steadily downtrending from 14 to 9.7 since admission -possibly 2/2 to aggressive fluids DVT PPx: Heparin SQ tid GI PPx: Protonix <Ashley Olson B - Last Filed: 06/30/16 17:00> Objective - Vital Signs/Intake and Output Vital Signs (last 24 hours): Temp Pulse Resp BP Pulse Ox 98.9 F 90 18 150/80 97 06/30/16 08:13 06/30/16 10:06 06/30/16 08:13 06/30/16 10:06 06/30/16 08:13 Intake and Output: 06/30/16 06/30/16 06:59 18:59 Intake Total 1200 Output Total 3375 Balance -2175 - Medications Medications: Current Medications Acetaminophen (Tylenol 325mg Tab) 650 mg PO Q8 PRN PRN Reason: Fever >100.4 F Last Admin: 06/28/16 17:05 Dose: 650 mg Albuterol/Ipratropium (Duoneb 3 Mg/0.5 Mg (3 Ml) Ud) 3 ml IH Q2H PRN PRN Reason: Shortness of Breath Last Admin: 06/23/16 23:50 Dose: 3 ml Albuterol/Ipratropium (Duoneb 3 Mg/0.5 Mg (3 Ml) Ud) 3 ml IH [id number] [facility] Last Admin: 06/30/16 13:33 Dose: Not Given Amlodipine Besylate (Norvasc) 10 mg PO DAILY [facility] Last Admin: 06/30/16 10:05 Dose: 10 mg Clonidine HCl (Catapres) 0.1 mg PO TID PRN PRN Reason: Systolic Blood Pressure Last Admin: 06/26/16 16:25 Dose: 0.1 mg Emollient Ointment (Vaseline Oint) 5 gm TOP PRN [facility] Guaifenesin (Robitussin) 100 mg PO Q4H PRN PRN Reason: Cough Last Admin: 06/25/16 20:23 Dose: 100 mg Heparin Sodium (Porcine) (Heparin) 5,000 units SC Q12 [facility] PRN Reason: Protocol Last Admin: 06/30/16 10:05 Dose: 5,000 units Clindamycin Phosphate 600 mg/ (Sodium Chloride) 54 mls @ 102 mls/hr IVPB Q8 [facility] PRN Reason: Protocol Last Admin: 06/30/16 15:36 Dose: 102 mls/hr Linezolid (Zyvox 600mg/300ml D5w) 600 mg in 300 mls @ 200 mls/hr IVPB Q12 [facility] PRN Reason: Protocol Last Admin: 06/30/16 10:11 Dose: 200 mls/hr Nafcillin Sodium 2 gm/ Sodium (Chloride) 100 mls @ 100 mls/hr IVPB Q6 [facility] PRN Reason: Protocol Last Admin: 06/30/16 13:43 Dose: 100 mls/hr Sodium Chloride (Sodium Chloride 0.9%) 1,000 mls @ 75 mls/hr IV .[id number] [facility] Last Admin: 06/30/16 15:37 Dose: 75 mls/hr Fluconazole (Diflucan Iv 200 Mg/100 Ml Ns) 100 mls @ 100 mls/hr IVPB DAILY [facility] PRN Reason: Protocol Ibuprofen (Motrin Tab) 600 mg PO Q8 PRN PRN Reason: Fever >100.4 F Last Admin: 06/27/16 23:32 Dose: 600 mg Insulin Detemir (Levemir) 16 unit SC HS [facility] Insulin Human Lispro (Humalog Low) 0 units SC ACHS [facility] PRN Reason: Protocol Last Admin: 06/30/16 12:17 Dose: Not Given Insulin Human Lispro (Humalog) 6 units SC AC [facility] Lisinopril (Zestril) 30 mg PO DAILY [facility] Last Admin: 06/30/16 10:06 Dose: 30 mg Morphine Sulfate (Morphine) 1 mg IVP Q4H PRN PRN Reason: Pain, moderate (4-7) Multi-Ingredient Cream (Hydrocerin Cream) 1 ea TOP DAILY [facility] Pantoprazole Sodium (Protonix Ec Tab) 40 mg PO ACB [facility] Last Admin: 06/30/16 08:02 Dose: Not Given - Labs Labs: 06/30/16 06:55 06/30/16 06:55 PT 10.7 Seconds (9.9-11.8) 06/19/16 18:15 INR 0.99 (0.93-1.08) 06/19/16 18:15 APTT 30.8 Seconds (23.7-30.8) 06/19/16 18:15 Attending/Attestation - Attestation I have personally seen and examined this patient.: Yes I have fully participated in the care of the patient.: Yes I have reviewed all pertinent clinical information, including history, physical exam and plan: Yes Notes (Text): Patient seen and examined with resident. Agree with the above note with following additions/ exceptions: This is a 61 year old man with history of HTN and NIDDM who presented with generalized weakness, polydysia, polyuria, hemoptysis, cough with greenish/ brown colored sputum, intermittent confusion and found to have DKA, hemoptysis and sepsis due to a multifocal pneumonia. Patient was also found to have MSSA bacteremia. He was febrile overnight. CT chest showed multifocal pneumonia/nodular changes. Repeat CT did not show any improvement. AFB x 3 is negative.TTE showed no vegetations. He is on clindamycin , zyvox and nafcillin. Repeat blood culture from 06/24 are negative so far. There is a plan for JANEL tomorrow. Anemia is due to anemia of chronic disease. Stool for occult blood negative. No active bleeding noted. Currently patient is on Levemir and humalog. Follow up with endocrinology . Diabetic nurse educator evaluation appreciated. Dietary education given. Renal function and BP is stable. Dr Ashley Olson
[2016-06-29] MEDS: Insulin Detemir 100 units/ml Vial (Levemir) SC SCH (22:54)
[2016-06-30] MEDS: Nafcillin 2 GM in Sodium Chloride 0.9% 100 ML IVPB SCH ×4 (00:22→17:57)
[2016-06-30] MEDS: Albuterol-Ipratrop 3 mg / 0.5 (3 ml) UD IH SCH ×4 (01:38→20:45)
[2016-06-30] MEDS ORDERED: Petrolatum Oint Foilpak (5 gm) TOP PRN (06:08)
[2016-06-30] MEDS ORDERED: Petrolatum Oint Foilpak (5 gm) TOP SCH (06:45)
[2016-06-30 07:09] LABS: ADD MANUAL DIFF? NO
[2016-06-30 07:17] LABS: BASO # 0.02 K/mm3 (0.0-2.0); BASO % 0.2 % (0.0-3.0); EOS # 0.1 (0.0-0.7); EOS % 0.7 % (1.5-5.0); GRAN # 8.41 (1.4-6.5); HEMATOCRIT 29.7 % (42.0-52.0); LYMPH # 2.1 (1.2-3.4); LYMPH % 19.1 % (22.0-35.0); MEAN CELL VOLUME 85.8 fL (80.0-105.0); MEAN CORPUSCULAR HEMOGLOBIN 27.5 pg (25.0-35.0); MEAN PLATELET VOLUME 10.7 fl (7.0-11.0); MONO # 0.6 (0.1-0.6); PLATELET COUNT 361 10^3/uL (120.0-450.0); RED CELL DISTRIBUTION WIDTH 14.6 % (11.5-14.5); WHITE BLOOD COUNT 11.2 10^3/ul (4.5-11.0)
[2016-06-30 07:26] LABS: ALB/GLOB RATIO 0.7 (1.1-1.8); ALKALINE PHOSPHATASE 77 U/L (38-133); ALT/SGPT 46 U/L (7-56); AST/SGOT 37 U/L (15-59); BILIRUBIN,TOTAL 0.5 mg/dL (0.2-1.3); BLOOD UREA NITROGEN 6 mg/dL (7-21); CALCIUM 7.9 mg/dL (8.4-10.5); CARBON DIOXIDE 28 mmol/L (21-33); CHLORIDE 106 mmol/L (95-110); GFR AFRICAN-AMERICAN > 60; GLUCOSE,RANDOM 80 mg/dL (70-110); POTASSIUM 3.7 mmol/L (3.6-5.0); SODIUM 138 mmol/L (132-148); TOTAL PROTEIN 6.3 g/dL (5.8-8.3)
[2016-06-30] MEDS: Insulin Lispro (humaLOG) LOW Coverage SC SCH ×4 (08:01→23:12)
[2016-06-30] MEDS: Insulin Lispro 1 UNITS/0.01 ML SC SCH ×3 (08:02→17:10)
[2016-06-30] MEDS: Pantoprazole 40 mg EC Tab PO SCH (08:02)
--- NOTE | 2016-06-30 09:44 | CP.PCM.PN ---
<OnealCiscoAaron - Last Filed: 06/30/16 17:46> Subjective - Date & Time of Evaluation Date of Evaluation: 06/30/16 Time of Evaluation: 07:50 - Subjective Subjective: HOSPITALISTS PROGRESS NOTE Pt is seen and examined at bedside. Patient was afebrile overnight. He complains of mild shortness of breath and black stools. He denies having any fevers/chills, CP, abd pain, N/V/D/C. Objective - Vital Signs/Intake and Output Vital Signs (last 24 hours): Temp Pulse Resp BP Pulse Ox 98.9 F 83 18 137/75 97 06/30/16 08:13 06/30/16 08:13 06/30/16 08:13 06/30/16 08:13 06/30/16 08:13 Intake and Output: 06/30/16 06/30/16 06:59 18:59 Intake Total 1200 Output Total 3375 Balance -2175 - Medications Medications: Current Medications Acetaminophen (Tylenol 325mg Tab) 650 mg PO Q8 PRN PRN Reason: Fever >100.4 F Last Admin: 06/28/16 17:05 Dose: 650 mg Albuterol/Ipratropium (Duoneb 3 Mg/0.5 Mg (3 Ml) Ud) 3 ml IH Q2H PRN PRN Reason: Shortness of Breath Last Admin: 06/23/16 23:50 Dose: 3 ml Albuterol/Ipratropium (Duoneb 3 Mg/0.5 Mg (3 Ml) Ud) 3 ml IH [id number] [facility] Last Admin: 06/30/16 07:22 Dose: 3 ml Amlodipine Besylate (Norvasc) 10 mg PO DAILY [facility] Last Admin: 06/29/16 09:33 Dose: 10 mg Clonidine HCl (Catapres) 0.1 mg PO TID PRN PRN Reason: Systolic Blood Pressure Last Admin: 06/26/16 16:25 Dose: 0.1 mg Emollient Ointment (Vaseline Oint) 5 gm TOP PRN [facility] Guaifenesin (Robitussin) 100 mg PO Q4H PRN PRN Reason: Cough Last Admin: 06/25/16 20:23 Dose: 100 mg Heparin Sodium (Porcine) (Heparin) 5,000 units SC Q12 [facility] PRN Reason: Protocol Last Admin: 06/29/16 21:06 Dose: 5,000 units Clindamycin Phosphate 600 mg/ (Sodium Chloride) 54 mls @ 102 mls/hr IVPB Q8 [facility] PRN Reason: Protocol Last Admin: 06/30/16 05:09 Dose: 102 mls/hr Linezolid (Zyvox 600mg/300ml D5w) 600 mg in 300 mls @ 200 mls/hr IVPB Q12 [facility] PRN Reason: Protocol Last Admin: 06/29/16 21:07 Dose: 200 mls/hr Nafcillin Sodium 2 gm/ Sodium (Chloride) 100 mls @ 100 mls/hr IVPB Q6 [facility] PRN Reason: Protocol Last Admin: 06/30/16 05:54 Dose: 100 mls/hr Sodium Chloride (Sodium Chloride 0.9%) 1,000 mls @ 75 mls/hr IV .[id number] [facility] Ibuprofen (Motrin Tab) 600 mg PO Q8 PRN PRN Reason: Fever >100.4 F Last Admin: 06/27/16 23:32 Dose: 600 mg Insulin Detemir (Levemir) 20 unit SC HS [facility] Last Admin: 06/29/16 22:54 Dose: 20 unit Insulin Human Lispro (Humalog Low) 0 units SC ACHS [facility] PRN Reason: Protocol Last Admin: 06/30/16 08:01 Dose: Not Given Insulin Human Lispro (Humalog) 10 units SC AC [facility] Last Admin: 06/30/16 08:02 Dose: Not Given Lisinopril (Zestril) 30 mg PO DAILY [facility] Last Admin: 06/29/16 09:33 Dose: 30 mg Morphine Sulfate (Morphine) 1 mg IVP Q4H PRN PRN Reason: Pain, moderate (4-7) Multi-Ingredient Cream (Hydrocerin Cream) 1 ea TOP DAILY [facility] Pantoprazole Sodium (Protonix Ec Tab) 40 mg PO ACB [facility] Last Admin: 06/30/16 08:02 Dose: Not Given - Labs Labs: 06/30/16 06:55 06/30/16 06:55 PT 10.7 Seconds (9.9-11.8) 06/19/16 18:15 INR 0.99 (0.93-1.08) 06/19/16 18:15 APTT 30.8 Seconds (23.7-30.8) 06/19/16 18:15 - Constitutional Appears: Non-toxic, No Acute Distress - Head Exam Head Exam: ATRAUMATIC, NORMOCEPHALIC - Eye Exam Eye Exam: EOMI - ENT Exam ENT Exam: Mucous Membranes Moist - Respiratory Exam Respiratory Exam: Rhonchi, NORMAL BREATHING PATTERN - Cardiovascular Exam Cardiovascular Exam: REGULAR RHYTHM, RRR, +S1, +S2. absent: JVD - GI/Abdominal Exam GI & Abdominal Exam: Soft, Tenderness, Normal Bowel Sounds - Extremities Exam Extremities Exam: absent: Joint Swelling, Pedal Edema - Back Exam Back Exam: tenderness. absent: rash noted - Neurological Exam Neurological Exam: Alert, Awake, Oriented x3 - Psychiatric Exam Psychiatric exam: Normal Affect, Normal Mood - Skin Skin Exam: Dry, Intact, Normal Color, Warm Assessment and Plan - Assessment and Plan (Free Text) Assessment: The patient is a 61 year old man with history of HTN and NIDDM who is being admitted to the ICU for DKA, hemoptysis and sepsis 2/2 PNA. Plan: 1. Diabetic Ketoacidosis (without coma): resolving -due to medication non-compliance -HgA1c 16.9 -Endo consult - Dr. Hurst -change to ISS -Levemir 24u SC HS -Humalog 14u AC -Lispro Low SS -Diabetic Diet -Diabetic Education 2. Sepsis 2/2 Pneumonia: -empiric IV antibiotics -procalcitonin 20.42 on 06/19 -procalcitonin 1.09 on 06/26 -lactic acid trending down -HIV non-reactive -ID consult Dr. Hankins - will follow ID recs -acid-fast testing of the sputum x 4 negative -MSSA per cultures 06/19, 06/21, 06/22 -Cultures from 06/24 show no growth after 5 days -Cultures from 06/27 show yeast species -On Diflucan 200mg IV daily -On Vancomycin and Nafcilln 2gm -Zyvox for better lung penetration. -Clindamycin -added Nafcillin -C. Diff Ag & Tox negative 06/29 Cardiac Consult - Dr. Torres - help appreciated -ECHO- please see full report -LV normal size and function -mild concentric LV hypertrophy -no report of vegetations -JANEL scheduled for Wednesday -CT Chest/Abdomen/Pelvis 06/20 - please see full report -shows mutifocal PNA w/ Tree/ bed changes. -Unclear if the tree/bud changes were present skilled nursing and not the new infiltrates are superimposed. -CT Chest with IV contrast 06/26 - please see full report -Multiple areas of consolidation are seen in both lungs, no sig zacarias from previous study -CT Abd/Pelvis with PO contrast - please see full report -worsening BL lower lobe infiltrates -no evidence of acute changes/abscess in report -CT Lumbosacral spine with IV contrast - please see full report -no evidence of acute changes/abscess in report 3. Acute Hemoptysis: resolved -ddx: TB vs malignancy -will rule out TB with three sets of sputum AFB samples -avoid anticoagulation -given infiltrates on CXR, absence of respiratory distress and a normal O2 sat, suspicion for acute PE is low -however, if pt's symptoms deteriorate despite IV antibiotics, will then consider a CT-PA 4. Acute Kidney Injury: resolved -likely pre-renal etiology due to intravascular depletion -serum Cr expected to correct after aggressive IVF's -Cr dropped to 1.1 -renally dose all meds until serum Cr corrects 5. Poorly Controlled Hypertension: resolving -due to medication non-compliance -Norvasc 10mg po daily -Clonidine 0.1mg po TID PRN SBP>165 -Lisinopril 30mg PO daily 6. GI Bleed/Anemia -complaint of black stools -Stool Occult Blood, Culture, C.diff ordered -Hgb steadily downtrending from 14 to 9.5 since admission -possibly 2/2 to aggressive fluids -Fe studies -low Fe, Fe%, TIBC -added Ferrous sulfate TID DVT PPx: Heparin SQ tid GI PPx: Protonix <Ashley Olson B - Last Filed: 07/01/16 10:18> Objective - Vital Signs/Intake and Output Vital Signs (last 24 hours): Temp Pulse Resp BP Pulse Ox 99.4 F 87 20 145/84 95 07/01/16 09:08 07/01/16 09:08 07/01/16 09:08 07/01/16 09:08 07/01/16 09:08 Intake and Output: 07/01/16 07/01/16 06:59 18:59 Intake Total 960 Output Total 2800 Balance -1840 - Medications Medications: Current Medications Acetaminophen (Tylenol 325mg Tab) 650 mg PO Q8 PRN PRN Reason: Fever >100.4 F Last Admin: 06/28/16 17:05 Dose: 650 mg Albuterol/Ipratropium (Duoneb 3 Mg/0.5 Mg (3 Ml) Ud) 3 ml IH Q2H PRN PRN Reason: Shortness of Breath Last Admin: 06/23/16 23:50 Dose: 3 ml Albuterol/Ipratropium (Duoneb 3 Mg/0.5 Mg (3 Ml) Ud) 3 ml IH [id number] [facility] Last Admin: 07/01/16 07:50 Dose: 3 ml Amlodipine Besylate (Norvasc) 10 mg PO DAILY [facility] Last Admin: 06/30/16 10:05 Dose: 10 mg Clonidine HCl (Catapres) 0.1 mg PO TID PRN PRN Reason: Systolic Blood Pressure Last Admin: 06/26/16 16:25 Dose: 0.1 mg Emollient Ointment (Vaseline Oint) 5 gm TOP PRN [facility] Ferrous Sulfate (Feosol Liq) 300 mg PO TID [facility] Last Admin: 06/30/16 17:57 Dose: 300 mg Guaifenesin (Robitussin) 100 mg PO Q4H PRN PRN Reason: Cough Last Admin: 06/25/16 20:23 Dose: 100 mg Clindamycin Phosphate 600 mg/ (Sodium Chloride) 54 mls @ 102 mls/hr IVPB Q8 [facility] PRN Reason: Protocol Last Admin: 07/01/16 05:14 Dose: 102 mls/hr Linezolid (Zyvox 600mg/300ml D5w) 600 mg in 300 mls @ 200 mls/hr IVPB Q12 [facility] PRN Reason: Protocol Last Admin: 06/30/16 21:25 Dose: 200 mls/hr Nafcillin Sodium 2 gm/ Sodium (Chloride) 100 mls @ 100 mls/hr IVPB Q6 [facility] PRN Reason: Protocol Last Admin: 07/01/16 06:47 Dose: 100 mls/hr Sodium Chloride (Sodium Chloride 0.9%) 1,000 mls @ 75 mls/hr IV .[id number] [facility] Last Admin: 06/30/16 15:37 Dose: 75 mls/hr Fluconazole (Diflucan Iv 200 Mg/100 Ml Ns) 100 mls @ 100 mls/hr IVPB DAILY [facility] PRN Reason: Protocol Last Admin: 06/30/16 17:18 Dose: 100 mls/hr Ibuprofen (Motrin Tab) 600 mg PO Q8 PRN PRN Reason: Fever >100.4 F Last Admin: 06/27/16 23:32 Dose: 600 mg Insulin Detemir (Levemir) 16 unit SC HS [facility] Last Admin: 06/30/16 23:15 Dose: 16 unit Insulin Human Lispro (Humalog Low) 0 units SC ACHS [facility] PRN Reason: Protocol Last Admin: 06/30/16 23:12 Dose: Not Given Insulin Human Lispro (Humalog) 6 units SC AC [facility] Last Admin: 06/30/16 17:10 Dose: Not Given Lisinopril (Zestril) 30 mg PO DAILY [facility] Last Admin: 06/30/16 10:06 Dose: 30 mg Morphine Sulfate (Morphine) 1 mg IVP Q4H PRN PRN Reason: Pain, moderate (4-7) Multi-Ingredient Cream (Hydrocerin Cream) 1 ea TOP DAILY [facility] Pantoprazole Sodium (Protonix Ec Tab) 40 mg PO ACB [facility] Last Admin: 06/30/16 08:02 Dose: Not Given - Labs Labs: 07/01/16 08:00 07/01/16 08:00 PT 10.7 Seconds (9.9-11.8) 06/19/16 18:15 INR 0.99 (0.93-1.08) 06/19/16 18:15 APTT 30.8 Seconds (23.7-30.8) 06/19/16 18:15 Attending/Attestation - Attestation I have personally seen and examined this patient.: Yes I have fully participated in the care of the patient.: Yes I have reviewed all pertinent clinical information, including history, physical exam and plan: Yes Notes (Text): Patient seen and examined with resident. Agree with the above note with following additions/ exceptions: This is a 61 year old man with history of HTN and NIDDM who presented with generalized weakness, polydysia, polyuria, hemoptysis, cough with greenish/ brown colored sputum, intermittent confusion and found to have DKA, hemoptysis and sepsis due to a multifocal pneumonia. Patient was also found to have MSSA bacteremia. He was febrile overnight. CT chest showed multifocal pneumonia/nodular changes. Repeat CT did not show any improvement. AFB x 3 is negative.TTE showed no vegetations. He is on clindamycin , zyvox and nafcillin. Repeat blood culture from 06/24 are negative so far. Blood culture from 06/27 is growing yeast. Diflucan started. JANEL was cancelled today and there is a plan for JANEL tomorrow. Anemia is due to anemia of chronic disease and iron was also low. Stool for occult blood negative. No active bleeding noted. Start iron pills. Dark stools noted. Stool for occult blood negative. Levemir and humalog was adjusted today by endocrine. Follow up with endocrinology . Diabetic nurse educator evaluation appreciated. Dietary education given. Renal function and BP is stable. Dr Ashley Olson
[2016-06-30] MEDS: Linezolid 600 mg in D5W 300 ml 600 MG/300 ML BAG IVPB SCH ×2 (10:11→21:25)
[2016-06-30] MEDS: Sodium Chloride 0.9% 1,000 ML IV SCH (15:37)
[2016-06-30] MEDS: Fluconazole IV 200mg/100 ml NS 100 ML IVPB SCH (17:18)
[2016-06-30] MEDS: Ferrous Sulfate 300 mg/5 mL Liq UD PO SCH (17:57)
--- NOTE | 2016-06-30 17:57 | PN ---
DATE: 06/30/2016 ENDO FOLLOWUP NOTE ROOM: 570. This is a 61-year-old male with recent uncontrolled type 2 insulin-requiring diabetes, now being foll owed closely for metabolic management. His overall intake has been quite variable at this time with low-normal glycemic levels as noted overnight. LABORATORY DATA: His latest chemistries showed a BUN of 6, sodium 138, potassium 3.7, chloride 106, CO2 of 28, glucose 80, and creatinine 1.2. His glucose levels have ranged from 84-138 mg/dL. So at this time, we will modify once again his basal and bolus insulin regimen and lower the Humalog to 6 units subQ t.i.d. before meals as noted. We will also lower the Levemir to 16 units subQ at bed time daily to start tonight. We will titrate incrementally as indicated to optimize metabolic contro l. We will follow up. Sherri Hurst MD cc: [id number] TT: 06/30/2016 17:57:20 Confirmation # [id number] Dictation # [id number]
--- NOTE | 2016-06-30 18:42 | CP.PCM.PN ---
Subjective - Date & Time of Evaluation Date of Evaluation: 06/30/16 Time of Evaluation: 18:24 - Subjective Subjective: Infectious Disease Follow Up: June 30, 2016 61 yo male with presentation of 2 days of generalized weakness, polydysia, polyuria, hemoptysis, cough with green-colored sputum, intermittent confusion and some mild SOB. On CT scan, tree in bud formations seen. Patient placed under respiratory isolation for TB workup. The patient has no recent travel history. 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 Prior to that, he worked for a [employer] company for 7 years. Extensive pulmonary findings on CT scan. Case discussed with Dr. Moreno. Culture of blood showing gram positive cocci on multiple cultures with FISH testing showing Staph Aureus. Last Vancomycin level at 13.4. Acid-Fast Bacilli Sputum evaluations x 3 are negative. Multiple cultures with MSSA growth. Patient feeling better overall. Patient still with persistent cough. Imaging studies suggest worsening infiltrate. On Nafcillin and Vancomycin currently. For JANEL on Wednesday. Changed Vancomycin IV to Zyvox for better lung penetration Wednesday. Afebrile today. Cannot rule out malignancy as part of differential. Awaiting results of JANEL. Objective - Vital Signs/Intake and Output Vital Signs (last 24 hours): Temp Pulse Resp BP Pulse Ox 98.7 F 87 20 148/75 98 06/30/16 16:00 06/30/16 16:00 06/30/16 16:00 06/30/16 16:00 06/30/16 16:00 Intake and Output: 06/30/16 06/30/16 06:59 18:59 Intake Total 1200 Output Total 3375 Balance -2175 - Medications Medications: Current Medications Acetaminophen (Tylenol 325mg Tab) 650 mg PO Q8 PRN PRN Reason: Fever >100.4 F Last Admin: 06/28/16 17:05 Dose: 650 mg Albuterol/Ipratropium (Duoneb 3 Mg/0.5 Mg (3 Ml) Ud) 3 ml IH Q2H PRN PRN Reason: Shortness of Breath Last Admin: 06/23/16 23:50 Dose: 3 ml Albuterol/Ipratropium (Duoneb 3 Mg/0.5 Mg (3 Ml) Ud) 3 ml IH [id number] [facility] Last Admin: 06/30/16 13:33 Dose: Not Given Amlodipine Besylate (Norvasc) 10 mg PO DAILY [facility] Last Admin: 06/30/16 10:05 Dose: 10 mg Clonidine HCl (Catapres) 0.1 mg PO TID PRN PRN Reason: Systolic Blood Pressure Last Admin: 06/26/16 16:25 Dose: 0.1 mg Emollient Ointment (Vaseline Oint) 5 gm TOP PRN [facility] Ferrous Sulfate (Feosol Liq) 300 mg PO TID [facility] Last Admin: 06/30/16 17:57 Dose: 300 mg Guaifenesin (Robitussin) 100 mg PO Q4H PRN PRN Reason: Cough Last Admin: 06/25/16 20:23 Dose: 100 mg Heparin Sodium (Porcine) (Heparin) 5,000 units SC Q12 [facility] PRN Reason: Protocol Last Admin: 06/30/16 10:05 Dose: 5,000 units Clindamycin Phosphate 600 mg/ (Sodium Chloride) 54 mls @ 102 mls/hr IVPB Q8 [facility] PRN Reason: Protocol Last Admin: 06/30/16 15:36 Dose: 102 mls/hr Linezolid (Zyvox 600mg/300ml D5w) 600 mg in 300 mls @ 200 mls/hr IVPB Q12 [facility] PRN Reason: Protocol Last Admin: 06/30/16 10:11 Dose: 200 mls/hr Nafcillin Sodium 2 gm/ Sodium (Chloride) 100 mls @ 100 mls/hr IVPB Q6 [facility] PRN Reason: Protocol Last Admin: 06/30/16 17:57 Dose: 100 mls/hr Sodium Chloride (Sodium Chloride 0.9%) 1,000 mls @ 75 mls/hr IV .[id number] [facility] Last Admin: 06/30/16 15:37 Dose: 75 mls/hr Fluconazole (Diflucan Iv 200 Mg/100 Ml Ns) 100 mls @ 100 mls/hr IVPB DAILY [facility] PRN Reason: Protocol Last Admin: 06/30/16 17:18 Dose: 100 mls/hr Ibuprofen (Motrin Tab) 600 mg PO Q8 PRN PRN Reason: Fever >100.4 F Last Admin: 06/27/16 23:32 Dose: 600 mg Insulin Detemir (Levemir) 16 unit SC HS [facility] Insulin Human Lispro (Humalog Low) 0 units SC ACHS [facility] PRN Reason: Protocol Last Admin: 06/30/16 17:09 Dose: Not Given Insulin Human Lispro (Humalog) 6 units SC AC [facility] Last Admin: 06/30/16 17:10 Dose: Not Given Lisinopril (Zestril) 30 mg PO DAILY [facility] Last Admin: 06/30/16 10:06 Dose: 30 mg Morphine Sulfate (Morphine) 1 mg IVP Q4H PRN PRN Reason: Pain, moderate (4-7) Multi-Ingredient Cream (Hydrocerin Cream) 1 ea TOP DAILY [facility] Pantoprazole Sodium (Protonix Ec Tab) 40 mg PO ACB [facility] Last Admin: 06/30/16 08:02 Dose: Not Given - Labs Labs: 06/30/16 06:55 06/30/16 06:55 PT 10.7 Seconds (9.9-11.8) 06/19/16 18:15 INR 0.99 (0.93-1.08) 06/19/16 18:15 APTT 30.8 Seconds (23.7-30.8) 06/19/16 18:15 - Constitutional Appears: Non-toxic, No Acute Distress, Chronically Ill - Head Exam Head Exam: ATRAUMATIC, NORMOCEPHALIC - Eye Exam Eye Exam: EOMI, PERRL Pupil Exam: NORMAL ACCOMODATION, PERRL - ENT Exam ENT Exam: Mucous Membranes Moist, Normal External Ear Exam, TM's Normal Bilaterally - Neck Exam Neck Exam: Full ROM, Normal Inspection - Respiratory Exam Respiratory Exam: Decreased Breath Sounds, Rales, Rhonchi, Wheezes - Cardiovascular Exam Cardiovascular Exam: REGULAR RHYTHM, RRR, +S1, +S2 - GI/Abdominal Exam GI & Abdominal Exam: Soft, Normal Bowel Sounds. absent: Distended, Tenderness - Extremities Exam Extremities Exam: Full ROM, Normal Inspection - Neurological Exam Neurological Exam: Alert, Awake, CN II-XII Intact, Oriented x3 - Psychiatric Exam Psychiatric exam: Normal Affect, Normal Mood - Skin Skin Exam: Intact, Normal Color Assessment and Plan - Assessment and Plan (Free Text) Assessment: 61 yo male presenting with Uncontrolled DM and DKA. Incidental finding of pneumonic picture with a possibility for TB. The patient is under isolation for TB. Risks for TB appear to be low. The patient for acid-fast testing of the sputum x 3. Cannot rule out ALISON, fungal, or severe bacterial infections such as Staph Aureus or Strep Pneumonia. He is being treated for his DKA. On Vancomycin and Zosyn. gram positive cocci in blood cultures. May need to consider Teflaro instead to get better concentrations in the lung for MRSA. Supportive care. AFB x 3 negative. Multiple blood cultures with gram positive cocci. FISH indicating Staph Aureus. On Vancomycin and Zosyn currently. Would obtain Quantiferon for reference point... a positive Quantiferon would not impact management of the case at this time. This test would only indicate patient exposure during his lifetime. Would obtain echocardiogram as well. MSSA in multiple cultures. TTE does not show vegetations. The patient appears to be improving. Switched from Zosyn to Nafcillin during this hospitalization. Persistent cough. X-ray of chest and CT Abd/Pel showing worsening left sided infiltrates. CT of the Chest is pending. Switch Vancomycin to Zyvox on Wednesday. On day 5 of Clindamycin. Planned for JANEL Wednesday (tomorrow). Persistent fevers and cough. Cannot rule out malignancy as part of the differential. Await results of the JANEL scheduled for tomorrow.. Patient with yeast growth on one blood culture. Awaiting identification of yeast. Started on Diflucan 200mg IV daily for now. Thank you for allowing me to participate in the care of this patient, we will follow with you.
[2016-06-30] MEDS ORDERED: Insulin Detemir 100 units/ml Vial (Levemir) SC SCH (22:00)
[2016-07-01] MEDS: Nafcillin 2 GM in Sodium Chloride 0.9% 100 ML IVPB SCH ×4 (00:12→23:29)
[2016-07-01] MEDS: Albuterol-Ipratrop 3 mg / 0.5 (3 ml) UD IH SCH ×4 (02:15→19:45)
[2016-07-01] MEDS: Insulin Lispro (humaLOG) LOW Coverage SC SCH ×4 (07:30→23:28)
[2016-07-01] MEDS: Insulin Lispro 1 UNITS/0.01 ML SC SCH ×3 (07:30→16:30)
[2016-07-01 08:16] LABS: ADD MANUAL DIFF? NO
[2016-07-01 08:31] LABS: BASO # 0.03 K/mm3 (0.0-2.0); BASO % 0.3 % (0.0-3.0); EOS # 0.1 (0.0-0.7); EOS % 0.6 % (1.5-5.0); GRAN # 7.57 (1.4-6.5); GRAN % 73.4 % (50.0-68.0); HEMATOCRIT 29.3 % (42.0-52.0); LYMPH # 2.1 (1.2-3.4); LYMPH % 20.3 % (22.0-35.0); MEAN CELL VOLUME 86.4 fL (80.0-105.0); MEAN CORPUSCULAR HEMOGLOBIN 27.1 pg (25.0-35.0); MEAN CORPUSCULAR HGB CONC 31.4 g/dl (31.0-37.0); MEAN PLATELET VOLUME 10.6 fl (7.0-11.0); MONO # 0.6 (0.1-0.6); MONO % 5.4 % (1.0-6.0); PLATELET COUNT 408 10^3/uL (120.0-450.0); RED CELL DISTRIBUTION WIDTH 14.7 % (11.5-14.5); WHITE BLOOD COUNT 10.3 10^3/ul (4.5-11.0)
[2016-07-01 08:48] LABS: GFR AFRICAN-AMERICAN > 60
[2016-07-01] MEDS ORDERED: Potassium Chloride 20 mEq ER Tab PO ONE (09:26)
[2016-07-01] MEDS ORDERED: Lidocaine 2% Jelly (30 ml) ONE (09:33)
[2016-07-01] MEDS ORDERED: Flumazenil 0.1 mg/ml Inj (5ml) IVP ONE (10:10)
[2016-07-01] MEDS ORDERED: Naloxone 0.4 mg/ml Inj (Adult) ONE (10:11)
[2016-07-01] MEDS ORDERED: Midazolam 2 MG/2 ML VIAL IV ONE ×2 (10:14→10:20)
[2016-07-01] MEDS: Midazolam 2 MG/2 ML VIAL ONE ×2 (10:14→10:20)
--- NOTE | 2016-07-01 12:26 | CARD ---
APPROVED REPORT EXAM: Transesophageal echocardiogram with color flow Doppler. INDICATION Infection : Rule out subacute bacterial endocarditis PROCEDURE After obtaining informed consent, patient underwent transesophageal echo in the Echo Lab. Type of Sedation : Conscious Sedation Sedation was achieved with Versed, Fentanyl intravenously. Transesophageal probe was inserted and advanced into esophagus without difficulty. The JANEL was performed without complications. Throughout the procedure, the blood pressure, pulse oximetry, cardiac rhythm, and rate were monitored. The patient tolerated the procedure without adverse effects. Recovery from conscious sedation was uneventful and vital signs were stable. LEFT VENTRICLE The left ventricle is normal size. There is moderate concentric left ventricular hypertrophy. The left ventricular function is normal. The left ventricular ejection fraction is within the normal range. There is normal LV segmental wall motion. RIGHT VENTRICLE The right ventricle is normal size. The right ventricular systolic function is normal. ATRIA The left atrium is mildly dilated. The right atrium size is normal. The interatrial septum is intact with no evidence for an atrial septal defect. AORTIC VALVE The aortic valve is normal in structure. No aortic regurgitation is present. There is no aortic valvular stenosis. There is no aortic valvular vegetation. MITRAL VALVE The mitral valve leaflets are thickened. No vegetation is seen. Mitral regurgitation is moderate to severe. TRICUSPID VALVE The tricuspid valve is normal in structure. There is mild tricuspid regurgitation. PULMONIC VALVE The pulmonary valve is normal in structure. GREAT VESSELS The aortic root is normal in size. The ascending aorta is normal in size. The IVC is normal in size and collapses >50% with inspiration. <Conclusion> Moderate concentric LVH. Normal LV size and systolic function. Moderate to svere MR. No valvular vegetations seen.
[2016-07-01] MEDS: Ferrous Sulfate 300 mg/5 mL Liq UD PO SCH ×3 (12:27→18:54)
[2016-07-01] MEDS: guaiFENesin 100 mg/5 ml Syrup UD PO PRN ×3 (12:27→23:28)
[2016-07-01] MEDS: Pantoprazole 40 mg EC Tab PO SCH (12:27)
[2016-07-01] MEDS: Hydrocerin(120 gm) TOP SCH (12:52)
--- NOTE | 2016-07-01 12:54 | PN ---
DATE: 07/01/2016 SUBJECTIVE: The patient is seen lying in bed. He is comfortable at the present time. He is current ly afebrile. He is scheduled for JANEL later today. CURRENT MEDICATIONS: Include Catapres p.r.n., clindamycin, fluconazole, DuoNeb inhaler, iron sulfate , insulin, Levemir insulin, nafcillin, amlodipine, Protonix, Zestril, and Zyvox. OBJECTIVE: GENERAL: He is a middle-aged man who appears comfortable at rest. VITAL SIGNS: His blood pressure is 146/84 with a pulse of 86, respirations are 14. His current temp erature is 99.4. HEENT: No JVD. CHEST: A few scattered rhonchi. HEART: PMI displaced laterally with a systolic murmur noted at the apex. ABDOMEN: Soft, nontender, normoactive bowel sounds. EXTREMITIES: No edema. DIAGNOSTIC DATA: Hemoglobin and hematocrit are 9.2 and 29.3 with a white count of 10.3, platelet cou nt of 408,000. Potassium 3.3. BUN and creatinine are 3 and 1.1. IMPRESSION: Persistent bacteremia with suspicion of endocarditis. Tentatively scheduled for transes ophageal echocardiogram today to exclude valvular vegetation. RECOMMENDATIONS: His current medications will be continued. Further recommendations will be made ba sed upon the results of the transesophageal echocardiogram study. Declan Tanner MD cc: [id number] TT: 07/01/2016 12:53:45 Confirmation # [id number] Dictation # [id number]
[2016-07-01] MEDS: Sodium Chloride 0.9% 1,000 ML IV SCH (13:10)
--- NOTE | 2016-07-01 13:41 | CP.PCM.PN ---
<Aaron Oneal - Last Filed: 07/01/16 21:32> Subjective - Date & Time of Evaluation Date of Evaluation: 07/01/16 Time of Evaluation: 07:30 - Subjective Subjective: PGY-1 [facility]PITAL[facility] PROGRESS NOTE Pt is seen and examined at bedside. Patient was afebrile overnight. His shortness of breath is improving. He denies having any fevers/chills, CP, abd pain, N/V/D/C. His JANEL did not show signs of vegetations. Objective - Vital Signs/Intake and Output Vital Signs (last 24 hours): Temp Pulse Resp BP Pulse Ox 99.4 F 83 20 161/78 H 96 07/01/16 11:17 07/01/16 12:40 07/01/16 12:40 07/01/16 12:40 07/01/16 12:40 Intake and Output: 07/01/16 07/01/16 06:59 18:59 Intake Total 960 340 Output Total 2800 Balance -1840 340 - Medications Medications: Current Medications Acetaminophen (Tylenol 325mg Tab) 650 mg PO Q8 PRN PRN Reason: Fever >100.4 F Last Admin: 06/28/16 17:05 Dose: 650 mg Albuterol/Ipratropium (Duoneb 3 Mg/0.5 Mg (3 Ml) Ud) 3 ml IH Q2H PRN PRN Reason: Shortness of Breath Last Admin: 06/23/16 23:50 Dose: 3 ml Albuterol/Ipratropium (Duoneb 3 Mg/0.5 Mg (3 Ml) Ud) 3 ml IH [id number] [facility] Last Admin: 07/01/16 13:30 Dose: 3 ml Amlodipine Besylate (Norvasc) 10 mg PO DAILY [facility] Last Admin: 07/01/16 12:36 Dose: 10 mg Clonidine HCl (Catapres) 0.1 mg PO TID PRN PRN Reason: Systolic Blood Pressure Last Admin: 06/26/16 16:25 Dose: 0.1 mg Emollient Ointment (Vaseline Oint) 5 gm TOP PRN [facility] Ferrous Sulfate (Feosol Liq) 300 mg PO TID [facility] Last Admin: 07/01/16 12:27 Dose: 300 mg Guaifenesin (Robitussin) 100 mg PO Q4H PRN PRN Reason: Cough Last Admin: 07/01/16 12:27 Dose: 100 mg Clindamycin Phosphate 600 mg/ (Sodium Chloride) 54 mls @ 102 mls/hr IVPB Q8 [facility] PRN Reason: Protocol Last Admin: 07/01/16 05:14 Dose: 102 mls/hr Linezolid (Zyvox 600mg/300ml D5w) 600 mg in 300 mls @ 200 mls/hr IVPB Q12 [facility] PRN Reason: Protocol Last Admin: 06/30/16 21:25 Dose: 200 mls/hr Nafcillin Sodium 2 gm/ Sodium (Chloride) 100 mls @ 100 mls/hr IVPB Q6 [facility] PRN Reason: Protocol Last Admin: 07/01/16 12:27 Dose: 100 mls/hr Sodium Chloride (Sodium Chloride 0.9%) 1,000 mls @ 75 mls/hr IV .[id number] [facility] Last Admin: 07/01/16 13:10 Dose: 75 mls/hr Fluconazole (Diflucan Iv 200 Mg/100 Ml Ns) 100 mls @ 100 mls/hr IVPB DAILY [facility] PRN Reason: Protocol Last Admin: 06/30/16 17:18 Dose: 100 mls/hr Ibuprofen (Motrin Tab) 600 mg PO Q8 PRN PRN Reason: Fever >100.4 F Last Admin: 06/27/16 23:32 Dose: 600 mg Insulin Detemir (Levemir) 16 unit SC HS [facility] Last Admin: 06/30/16 23:15 Dose: 16 unit Insulin Human Lispro (Humalog Low) 0 units SC ACHS [facility] PRN Reason: Protocol Last Admin: 07/01/16 12:12 Dose: Not Given Insulin Human Lispro (Humalog) 6 units SC AC [facility] Last Admin: 07/01/16 12:12 Dose: Not Given Lisinopril (Zestril) 30 mg PO DAILY [facility] Last Admin: 07/01/16 12:37 Dose: 30 mg Morphine Sulfate (Morphine) 1 mg IVP Q4H PRN PRN Reason: Pain, moderate (4-7) Multi-Ingredient Cream (Hydrocerin Cream) 1 ea TOP DAILY [facility] Last Admin: 07/01/16 12:52 Dose: Not Given Pantoprazole Sodium (Protonix Ec Tab) 40 mg PO ACB [facility] Last Admin: 07/01/16 12:27 Dose: 40 mg - Labs Labs: 07/01/16 08:00 07/01/16 08:00 PT 10.7 Seconds (9.9-11.8) 06/19/16 18:15 INR 0.99 (0.93-1.08) 06/19/16 18:15 APTT 30.8 Seconds (23.7-30.8) 06/19/16 18:15 - Constitutional Appears: Non-toxic, No Acute Distress - Head Exam Head Exam: ATRAUMATIC, NORMOCEPHALIC - Eye Exam Eye Exam: EOMI - ENT Exam ENT Exam: Mucous Membranes Moist - Respiratory Exam Respiratory Exam: Rhonchi, NORMAL BREATHING PATTERN - Cardiovascular Exam Cardiovascular Exam: REGULAR RHYTHM, RRR, +S1, +S2. absent: JVD - GI/Abdominal Exam GI & Abdominal Exam: Soft, Tenderness, Normal Bowel Sounds - Extremities Exam Extremities Exam: absent: Joint Swelling, Pedal Edema - Back Exam Back Exam: tenderness. absent: rash noted - Neurological Exam Neurological Exam: Alert, Awake, Oriented x3 - Psychiatric Exam Psychiatric exam: Normal Affect, Normal Mood - Skin Skin Exam: Dry, Intact, Normal Color, Warm Assessment and Plan - Assessment and Plan (Free Text) Assessment: The patient is a 61 year old man with history of HTN and NIDDM who is being admitted to the ICU for DKA, hemoptysis and sepsis 2/2 PNA. Plan: 1. Diabetic Ketoacidosis (without coma): resolving -due to medication non-compliance -HgA1c 16.9 -Endo consult - Dr. Hurst -change to ISS -Levemir 24u SC HS -Humalog 14u AC -Lispro Low SS -Diabetic Diet -Diabetic Education 2. Sepsis 2/2 Pneumonia: -empiric IV antibiotics -ID consult Dr. Hankins - will follow ID recs -acid-fast testing of the sputum x 4 negative -MSSA per cultures 06/19, 06/21, 06/22 -Cultures from 06/24 show no growth after 5 days -Cultures from 06/27 show yeast species -On Diflucan 200mg IV daily -On Vancomycin and Nafcilln 2gm -Zyvox for better lung penetration. -Clindamycin -added Nafcillin Cardiac Consult - Dr. Torres - help appreciated -ECHO- please see full report -LV normal size and function -mild concentric LV hypertrophy -no report of vegetations -JANEL did not show signs of vegetations. -CT Chest/Abdomen/Pelvis 06/20 - please see full report -shows mutifocal PNA w/ Tree/ bed changes. -Unclear if the tree/bud changes were present weight inspector and not the new infiltrates are superimposed. -CT Chest with IV contrast 06/26 - please see full report -Multiple areas of consolidation are seen in both lungs, no sig zacarias from previous study -CT Abd/Pelvis with PO contrast - please see full report -worsening BL lower lobe infiltrates -no evidence of acute changes/abscess in report -CT Lumbosacral spine with IV contrast - please see full report -no evidence of acute changes/abscess in report 3. Acute Hemoptysis: resolved -ddx: TB vs malignancy -ruled out TB with three negative sets of sputum AFB samples -avoid anticoagulation 4. Acute Kidney Injury: resolved -likely pre-renal etiology due to intravascular depletion 5. Poorly Controlled Hypertension: resolving -due to medication non-compliance -Norvasc 10mg po daily -Clonidine 0.1mg po TID PRN SBP>165 -Lisinopril 30mg PO daily 6. GI Bleed/Anemia -complaint of black stools -Stool Occult Blood, Culture, C.diff ordered -Hgb steadily downtrending from 14 to 9.5 since admission -possibly 2/2 to aggressive fluids -Fe studies -low Fe, Fe%, TIBC -added Ferrous sulfate TID DVT PPx: Heparin SQ tid GI PPx: Protonix <Ashley Olson B - Last Filed: 07/02/16 09:25> Objective - Vital Signs/Intake and Output Vital Signs (last 24 hours): Temp Pulse Resp BP Pulse Ox 99.4 F 82 20 138/79 96 07/02/16 08:00 07/02/16 08:00 07/02/16 08:00 07/02/16 08:00 07/02/16 08:00 Intake and Output: 07/02/16 07/02/16 06:59 18:59 Intake Total 5580 Output Total 900 Balance 4680 - Medications Medications: Current Medications Acetaminophen (Tylenol 325mg Tab) 650 mg PO Q8 PRN PRN Reason: Fever >100.4 F Last Admin: 06/28/16 17:05 Dose: 650 mg Albuterol/Ipratropium (Duoneb 3 Mg/0.5 Mg (3 Ml) Ud) 3 ml IH Q2H PRN PRN Reason: Shortness of Breath Last Admin: 06/23/16 23:50 Dose: 3 ml Albuterol/Ipratropium (Duoneb 3 Mg/0.5 Mg (3 Ml) Ud) 3 ml IH [id number] [facility] Last Admin: 07/02/16 09:09 Dose: 3 ml Amlodipine Besylate (Norvasc) 10 mg PO DAILY [facility] Last Admin: 07/01/16 12:36 Dose: 10 mg Clonidine HCl (Catapres) 0.1 mg PO TID PRN PRN Reason: Systolic Blood Pressure Last Admin: 06/26/16 16:25 Dose: 0.1 mg Emollient Ointment (Vaseline Oint) 5 gm TOP PRN [facility] Ferrous Sulfate (Feosol Liq) 300 mg PO TID [facility] Last Admin: 07/01/16 18:54 Dose: 300 mg Guaifenesin (Robitussin) 100 mg PO Q4H PRN PRN Reason: Cough Last Admin: 07/02/16 06:23 Dose: 100 mg Clindamycin Phosphate 600 mg/ (Sodium Chloride) 54 mls @ 102 mls/hr IVPB Q8 [facility] PRN Reason: Protocol Last Admin: 07/02/16 06:20 Dose: 102 mls/hr Linezolid (Zyvox 600mg/300ml D5w) 600 mg in 300 mls @ 200 mls/hr IVPB Q12 [facility] PRN Reason: Protocol Last Admin: 07/02/16 01:30 Dose: 200 mls/hr Nafcillin Sodium 2 gm/ Sodium (Chloride) 100 mls @ 100 mls/hr IVPB Q6 [facility] PRN Reason: Protocol Last Admin: 07/02/16 05:24 Dose: 100 mls/hr Sodium Chloride (Sodium Chloride 0.9%) 1,000 mls @ 75 mls/hr IV .[id number] [facility] Last Admin: 07/01/16 13:10 Dose: 75 mls/hr Fluconazole (Diflucan Iv 200 Mg/100 Ml Ns) 100 mls @ 100 mls/hr IVPB DAILY [facility] PRN Reason: Protocol Last Admin: 07/01/16 14:49 Dose: 100 mls/hr Ibuprofen (Motrin Tab) 600 mg PO Q8 PRN PRN Reason: Fever >100.4 F Last Admin: 06/27/16 23:32 Dose: 600 mg Insulin Detemir (Levemir) 10 unit SC HS [facility] Last Admin: 07/01/16 23:29 Dose: 10 unit Insulin Human Lispro (Humalog Low) 0 units SC ACHS [facility] PRN Reason: Protocol Last Admin: 07/01/16 23:28 Dose: Not Given Insulin Human Lispro (Humalog) 4 units SC AC [facility] Lisinopril (Zestril) 30 mg PO DAILY [facility] Last Admin: 07/01/16 12:37 Dose: 30 mg Multi-Ingredient Cream (Hydrocerin Cream) 1 ea TOP DAILY [facility] Last Admin: 07/01/16 12:52 Dose: Not Given Pantoprazole Sodium (Protonix Ec Tab) 40 mg PO ACB [facility] Last Admin: 07/01/16 12:27 Dose: 40 mg - Labs Labs: 07/02/16 07:30 07/02/16 07:30 PT 10.7 Seconds (9.9-11.8) 06/19/16 18:15 INR 0.99 (0.93-1.08) 06/19/16 18:15 APTT 30.8 Seconds (23.7-30.8) 06/19/16 18:15 Attending/Attestation - Attestation I have personally seen and examined this patient.: Yes I have fully participated in the care of the patient.: Yes I have reviewed all pertinent clinical information, including history, physical exam and plan: Yes Notes (Text): Patient seen and examined with resident. Agree with the above note with following additions/ exceptions: This is a 61 year old man with history of HTN and NIDDM who presented with generalized weakness, polydysia, polyuria, hemoptysis, cough with greenish/ brown colored sputum, intermittent confusion and found to have DKA, hemoptysis and sepsis due to a multifocal pneumonia. Patient was also found to have MSSA bacteremia. No fever overnight. CT chest showed multifocal pneumonia/nodular changes. Repeat CT did not show any improvement however patient has clinically been improving. AFB x 3 is negative. TTE showed no vegetations. He is on clindamycin, zyvox and nafcillin. Repeat blood culture from 5/17 are negative so far. Blood culture from 06/27 is growing yeast. Continue Diflucan. Opthalmology consult pending. JANEL is negative for vegetations. Anemia is multifactorial ( anemia of chronic disease and iron was also low). Stool for occult blood negative. No active bleeding noted. Continue iron pills. Dark stools noted. Stool for occult blood negative. Levemir and humalog was adjusted by endocrine. Follow up with endocrinology . Diabetic nurse educator evaluation appreciated. Dietary education given. Renal function and BP is stable. Dr Ashley Olson
--- NOTE | 2016-07-01 13:42 | CP.PCM.PN ---
Subjective - Date & Time of Evaluation Date of Evaluation: 07/01/16 Time of Evaluation: 07:10 - Subjective Subjective: more awake today, possibly 2/2 less morphine. Pain is controlled on 1mg q4 vs 2mg q4. Objective - Vital Signs/Intake and Output Vital Signs (last 24 hours): Temp Pulse Resp BP Pulse Ox 99.4 F 83 20 161/78 H 96 07/01/16 11:17 07/01/16 12:40 07/01/16 12:40 07/01/16 12:40 07/01/16 12:40 Intake and Output: 07/01/16 07/01/16 06:59 18:59 Intake Total 960 340 Output Total 2800 Balance -1840 340 - Medications Medications: Current Medications Acetaminophen (Tylenol 325mg Tab) 650 mg PO Q8 PRN PRN Reason: Fever >100.4 F Last Admin: 06/28/16 17:05 Dose: 650 mg Albuterol/Ipratropium (Duoneb 3 Mg/0.5 Mg (3 Ml) Ud) 3 ml IH Q2H PRN PRN Reason: Shortness of Breath Last Admin: 06/23/16 23:50 Dose: 3 ml Albuterol/Ipratropium (Duoneb 3 Mg/0.5 Mg (3 Ml) Ud) 3 ml IH [id number] [facility] Last Admin: 07/01/16 13:30 Dose: 3 ml Amlodipine Besylate (Norvasc) 10 mg PO DAILY [facility] Last Admin: 07/01/16 12:36 Dose: 10 mg Clonidine HCl (Catapres) 0.1 mg PO TID PRN PRN Reason: Systolic Blood Pressure Last Admin: 06/26/16 16:25 Dose: 0.1 mg Emollient Ointment (Vaseline Oint) 5 gm TOP PRN [facility] Ferrous Sulfate (Feosol Liq) 300 mg PO TID [facility] Last Admin: 07/01/16 12:27 Dose: 300 mg Guaifenesin (Robitussin) 100 mg PO Q4H PRN PRN Reason: Cough Last Admin: 07/01/16 12:27 Dose: 100 mg Clindamycin Phosphate 600 mg/ (Sodium Chloride) 54 mls @ 102 mls/hr IVPB Q8 LYN PRN Reason: Protocol Last Admin: 07/01/16 05:14 Dose: 102 mls/hr Linezolid (Zyvox 600mg/300ml D5w) 600 mg in 300 mls @ 200 mls/hr IVPB Q12 [facility] PRN Reason: Protocol Last Admin: 06/30/16 21:25 Dose: 200 mls/hr Nafcillin Sodium 2 gm/ Sodium (Chloride) 100 mls @ 100 mls/hr IVPB Q6 [facility] PRN Reason: Protocol Last Admin: 07/01/16 12:27 Dose: 100 mls/hr Sodium Chloride (Sodium Chloride 0.9%) 1,000 mls @ 75 mls/hr IV .[id number] [facility] Last Admin: 07/01/16 13:10 Dose: 75 mls/hr Fluconazole (Diflucan Iv 200 Mg/100 Ml Ns) 100 mls @ 100 mls/hr IVPB DAILY [facility] PRN Reason: Protocol Last Admin: 06/30/16 17:18 Dose: 100 mls/hr Ibuprofen (Motrin Tab) 600 mg PO Q8 PRN PRN Reason: Fever >100.4 F Last Admin: 06/27/16 23:32 Dose: 600 mg Insulin Detemir (Levemir) 16 unit SC HS [facility] Last Admin: 06/30/16 23:15 Dose: 16 unit Insulin Human Lispro (Humalog Low) 0 units SC ACHS [facility] PRN Reason: Protocol Last Admin: 07/01/16 12:12 Dose: Not Given Insulin Human Lispro (Humalog) 6 units SC AC [facility] Last Admin: 07/01/16 12:12 Dose: Not Given Lisinopril (Zestril) 30 mg PO DAILY [facility] Last Admin: 07/01/16 12:37 Dose: 30 mg Morphine Sulfate (Morphine) 1 mg IVP Q4H PRN PRN Reason: Pain, moderate (4-7) Multi-Ingredient Cream (Hydrocerin Cream) 1 ea TOP DAILY [facility] Last Admin: 07/01/16 12:52 Dose: Not Given Pantoprazole Sodium (Protonix Ec Tab) 40 mg PO ACB [facility] Last Admin: 07/01/16 12:27 Dose: 40 mg - Labs Labs: 07/01/16 08:00 07/01/16 08:00 PT 10.7 Seconds (9.9-11.8) 06/19/16 18:15 INR 0.99 (0.93-1.08) 06/19/16 18:15 APTT 30.8 Seconds (23.7-30.8) 06/19/16 18:15
[2016-07-01 14:05] LABS: ALB/GLOB RATIO 1.1 (1.1-1.8); ALKALINE PHOSPHATASE 49 U/L (38-133); ALT/SGPT 33 U/L (7-56); AST/SGOT 26 U/L (15-59); BILIRUBIN,TOTAL 0.7 mg/dL (0.2-1.3); BLOOD UREA NITROGEN 9 mg/dL (7-21); CALCIUM 8.5 mg/dL (8.4-10.5); CARBON DIOXIDE 26 mmol/L (21-33); CHLORIDE 97 mmol/L (95-110); GLUCOSE,RANDOM 80 mg/dL (70-110); POTASSIUM 3.6 mmol/L (3.6-5.0); SODIUM 128 mmol/L (132-148); TOTAL PROTEIN 5.3 g/dL (5.8-8.3)
[2016-07-01] MEDS: Fluconazole IV 200mg/100 ml NS 100 ML IVPB SCH (14:49)
--- NOTE | 2016-07-01 18:01 | RAD ---
HISTORY: Pneumonia. Portable semi upright study 16:36. COMPARISON: 06/24/2016. FINDINGS: LUNGS: Stable per infiltrates primarily affecting right lower lobe and right upper lobe. Less pronounced retrocardiac changes noted. PLEURA: Stable right pleural effusion. CARDIOVASCULAR: No radiographic findings to suggest acute or significant cardiovascular disease. OSSEOUS STRUCTURES: No significant abnormalities. VISUALIZED UPPER ABDOMEN: Normal. OTHER FINDINGS: None. IMPRESSION: Persistent, essentially unchanged infiltrates and right pleural effusion.
--- NOTE | 2016-07-01 18:22 | CP.PCM.PN ---
Subjective - Date & Time of Evaluation Date of Evaluation: 07/01/16 Time of Evaluation: 17:00 - Subjective Subjective: Infectious Disease Follow Up: July 01, 2016 61 yo male with presentation of 2 days of generalized weakness, polydysia, polyuria, hemoptysis, cough with green-colored sputum, intermittent confusion and some mild SOB. On CT scan, tree in bud formations seen. Patient placed under respiratory isolation for TB workup. The patient has no recent travel history. 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 Extensive pulmonary findings on CT scan. Case discussed with Dr. Moreno. Culture of blood showing gram positive cocci on multiple cultures with FISH testing showing Staph Aureus. Last Vancomycin level at 13.4. Acid-Fast Bacilli Sputum evaluations x 3 are negative. Multiple cultures with MSSA growth. Patient feeling better overall. Patient still with persistent cough. Imaging studies suggest worsening infiltrate. On Nafcillin and Vancomycin currently. For JANEL on Wednesday. Changed Vancomycin IV to Zyvox for better lung penetration Wednesday. Afebrile today. Cannot rule out malignancy as part of differential. Awaiting results of JANEL. Objective - Vital Signs/Intake and Output Vital Signs (last 24 hours): Temp Pulse Resp BP Pulse Ox 99.4 F 83 20 161/78 H 96 07/01/16 11:17 07/01/16 12:40 07/01/16 12:40 07/01/16 12:40 07/01/16 12:40 Intake and Output: 07/01/16 07/01/16 06:59 18:59 Intake Total 960 340 Output Total 2800 Balance -1840 340 - Medications Medications: Current Medications Acetaminophen (Tylenol 325mg Tab) 650 mg PO Q8 PRN PRN Reason: Fever >100.4 F Last Admin: 06/28/16 17:05 Dose: 650 mg Albuterol/Ipratropium (Duoneb 3 Mg/0.5 Mg (3 Ml) Ud) 3 ml IH Q2H PRN PRN Reason: Shortness of Breath Last Admin: 06/23/16 23:50 Dose: 3 ml Albuterol/Ipratropium (Duoneb 3 Mg/0.5 Mg (3 Ml) Ud) 3 ml IH [id number] [facility] Last Admin: 07/01/16 13:30 Dose: 3 ml Amlodipine Besylate (Norvasc) 10 mg PO DAILY [facility] Last Admin: 07/01/16 12:36 Dose: 10 mg Clonidine HCl (Catapres) 0.1 mg PO TID PRN PRN Reason: Systolic Blood Pressure Last Admin: 06/26/16 16:25 Dose: 0.1 mg Emollient Ointment (Vaseline Oint) 5 gm TOP PRN [facility] Ferrous Sulfate (Feosol Liq) 300 mg PO TID [facility] Last Admin: 07/01/16 15:37 Dose: 300 mg Guaifenesin (Robitussin) 100 mg PO Q4H PRN PRN Reason: Cough Last Admin: 07/01/16 12:27 Dose: 100 mg Clindamycin Phosphate 600 mg/ (Sodium Chloride) 54 mls @ 102 mls/hr IVPB Q8 LYN PRN Reason: Protocol Last Admin: 07/01/16 16:49 Dose: 102 mls/hr Linezolid (Zyvox 600mg/300ml D5w) 600 mg in 300 mls @ 200 mls/hr IVPB Q12 L[facility] PRN Reason: Protocol Last Admin: 06/30/16 21:25 Dose: 200 mls/hr Nafcillin Sodium 2 gm/ Sodium (Chloride) 100 mls @ 100 mls/hr IVPB Q6 LYN PRN Reason: Protocol Last Admin: 07/01/16 12:27 Dose: 100 mls/hr Sodium Chloride (Sodium Chloride 0.9%) 1,000 mls @ 75 mls/hr IV .[id number] [facility] Last Admin: 07/01/16 13:10 Dose: 75 mls/hr Fluconazole (Diflucan Iv 200 Mg/100 Ml Ns) 100 mls @ 100 mls/hr IVPB DAILY [facility] PRN Reason: Protocol Last Admin: 07/01/16 14:49 Dose: 100 mls/hr Ibuprofen (Motrin Tab) 600 mg PO Q8 PRN PRN Reason: Fever >100.4 F Last Admin: 06/27/16 23:32 Dose: 600 mg Insulin Detemir (Levemir) 10 unit SC HS [facility] Insulin Human Lispro (Humalog Low) 0 units SC ACHS [facility] PRN Reason: Protocol Last Admin: 07/01/16 16:30 Dose: Not Given Insulin Human Lispro (Humalog) 4 units SC AC [facility] Lisinopril (Zestril) 30 mg PO DAILY [facility] Last Admin: 07/01/16 12:37 Dose: 30 mg Morphine Sulfate (Morphine) 1 mg IVP Q4H PRN PRN Reason: Pain, moderate (4-7) Multi-Ingredient Cream (Hydrocerin Cream) 1 ea TOP DAILY [facility] Last Admin: 07/01/16 12:52 Dose: Not Given Pantoprazole Sodium (Protonix Ec Tab) 40 mg PO ACB [facility] Last Admin: 07/01/16 12:27 Dose: 40 mg - Labs Labs: 07/01/16 08:00 07/01/16 08:00 PT 10.7 Seconds (9.9-11.8) 06/19/16 18:15 INR 0.99 (0.93-1.08) 06/19/16 18:15 APTT 30.8 Seconds (23.7-30.8) 06/19/16 18:15 - Constitutional Appears: Non-toxic, No Acute Distress, Chronically Ill - Head Exam Head Exam: ATRAUMATIC, NORMOCEPHALIC - Eye Exam Eye Exam: EOMI, PERRL Pupil Exam: NORMAL ACCOMODATION, PERRL - ENT Exam ENT Exam: Mucous Membranes Moist, Normal External Ear Exam, TM's Normal Bilaterally - Neck Exam Neck Exam: Full ROM, Normal Inspection - Respiratory Exam Respiratory Exam: Decreased Breath Sounds, NORMAL BREATHING PATTERN. absent: Rales, Rhonchi, Wheezes - Cardiovascular Exam Cardiovascular Exam: REGULAR RHYTHM, RRR, +S1, +S2 - GI/Abdominal Exam GI & Abdominal Exam: Soft, Normal Bowel Sounds. absent: Distended, Tenderness - Extremities Exam Extremities Exam: Full ROM, Normal Inspection - Neurological Exam Neurological Exam: Alert, Awake, CN II-XII Intact, Oriented x3 - Psychiatric Exam Psychiatric exam: Normal Affect, Normal Mood - Skin Skin Exam: Intact, Normal Color Assessment and Plan - Assessment and Plan (Free Text) Assessment: 61 yo male presenting with Uncontrolled DM and DKA. Incidental finding of pneumonic picture with a possibility for TB. The patient is under isolation for TB. Risks for TB appear to be low. The patient for acid-fast testing of the sputum x 3. Cannot rule out ALISON, fungal, or severe bacterial infections such as Staph Aureus or Strep Pneumonia. He is being treated for his DKA. On Vancomycin and Zosyn. gram positive cocci in blood cultures. May need to consider Teflaro instead to get better concentrations in the lung for MRSA. Supportive care. AFB x 3 negative. Multiple blood cultures with gram positive cocci. FISH indicating Staph Aureus. On Vancomycin and Zosyn currently. Would obtain Quantiferon for reference point... a positive Quantiferon would not impact management of the case at this time. This test would only indicate patient exposure during his lifetime. Would obtain echocardiogram as well. MSSA in multiple cultures. TTE does not show vegetations. The patient appears to be improving. Switched from Zosyn to Nafcillin during this hospitalization. Persistent cough. X-ray of chest and CT Abd/Pel showing worsening left sided infiltrates. CT of the Chest is pending. Switch Vancomycin to Zyvox on Wednesday. On day 6 of Clindamycin. Planned for JANEL Wednesday (tomorrow). Persistent fevers and cough. Cannot rule out malignancy as part of the differential. Await official results of the JANEL - preliminary report is no vegetations. Patient with yeast growth on one blood culture. Awaiting identification of yeast. Started on Diflucan 200mg IV daily for now. Clinically the patient is improving. Thank you for allowing me to participate in the care of this patient, we will follow with you.
--- NOTE | 2016-07-01 18:45 | PN ---
DATE: 07/01/2016 ROOM: 570 This is a 61-year-old male with recent uncontrolled type 2 insulin-requiring diabetes, now being foll owed closely for metabolic management. At this time, because of the variability of his oral intake, has had supervening hypoglycemic episodes as noted. His glucose levels today have ranged from 57-144 mg/dL. His latest chemistries showed a BUN of 9, so dium 128, potassium 3.6, chloride 97, CO2 26, glucose 80 and creatinine 0.7. So at this time, we will modify once again his basal and bolus insulin regimen and lower the Levemir to 10 units subQ at bedtime daily to start tonight. We will also continue the low-dose correction sc jim using Humalog insulin as given. We will also lower the prandial insulin as his oral intake is qu ite variable as noted to Humalog given as 4 units subQ t.i.d. before meals as given. We will titrate incrementally as indicated to optimize metabolic control. If hyperglycemic levels persist, then we will switch him over to oral hypoglycemic drug therapy as indicated. We will follow. Sherri Hurst MD cc: [id number] TT: 07/01/2016 18:44:18 Confirmation # [id number] Dictation # [id number] en
[2016-07-01] MEDS: Linezolid 600 mg in D5W 300 ml 600 MG/300 ML BAG IVPB SCH (18:53)
[2016-07-01] MEDS ORDERED: Insulin Detemir 100 units/ml Vial (Levemir) SC SCH (22:00)
[2016-07-02] MEDS: Linezolid 600 mg in D5W 300 ml 600 MG/300 ML BAG IVPB SCH ×2 (01:30→20:29)
[2016-07-02] MEDS: Albuterol-Ipratrop 3 mg / 0.5 (3 ml) UD IH SCH ×4 (05:17→20:03)
[2016-07-02] MEDS: Nafcillin 2 GM in Sodium Chloride 0.9% 100 ML IVPB SCH ×4 (05:24→17:52)
[2016-07-02] MEDS: guaiFENesin 100 mg/5 ml Syrup UD PO PRN ×3 (06:23→22:31)
[2016-07-02] MEDS ORDERED: Insulin Lispro 1 UNITS/0.01 ML SC SCH (07:30)
[2016-07-02 07:32] LABS: ADD MANUAL DIFF? NO
[2016-07-02 07:53] LABS: BASO # 0.02 K/mm3 (0.0-2.0); BASO % 0.2 % (0.0-3.0); EOS # 0.1 (0.0-0.7); EOS % 0.8 % (1.5-5.0); GRAN # 5.84 (1.4-6.5); GRAN % 69.4 % (50.0-68.0); HEMATOCRIT 29.7 % (42.0-52.0); LYMPH % 23.8 % (22.0-35.0); MEAN CELL VOLUME 86.6 fL (80.0-105.0); MEAN CORPUSCULAR HEMOGLOBIN 27.4 pg (25.0-35.0); MEAN CORPUSCULAR HGB CONC 31.6 g/dl (31.0-37.0); MEAN PLATELET VOLUME 10.7 fl (7.0-11.0); MONO # 0.5 (0.1-0.6); MONO % 5.8 % (1.0-6.0); PLATELET COUNT 400 10^3/uL (120.0-450.0); RED CELL DISTRIBUTION WIDTH 14.8 % (11.5-14.5); WHITE BLOOD COUNT 8.4 10^3/ul (4.5-11.0)
[2016-07-02 08:03] LABS: ALB/GLOB RATIO 0.7 (1.1-1.8); ALKALINE PHOSPHATASE 82 U/L (38-133); ALT/SGPT 37 U/L (7-56); AST/SGOT 27 U/L (15-59); BILIRUBIN,TOTAL 0.6 mg/dL (0.2-1.3); BLOOD UREA NITROGEN 3 mg/dL (7-21); CALCIUM 8.2 mg/dL (8.4-10.5); CARBON DIOXIDE 27 mmol/L (21-33); CHLORIDE 106 mmol/L (95-110); GFR AFRICAN-AMERICAN > 60; GLUCOSE,RANDOM 88 mg/dL (70-110); POTASSIUM 4.4 mmol/L (3.6-5.0); SODIUM 140 mmol/L (132-148); TOTAL PROTEIN 6.9 g/dL (5.8-8.3)
--- NOTE | 2016-07-02 08:07 | PN ---
DATE: 07/01/2016 The patient seen and examined at bedside. He is comfortable. He talks full sentences. He is not in respiratory or otherwise distress. PHYSICAL EXAMINATION: VITAL SIGNS: Temperature 99.4. The patient was afebrile for 2 days. Heart rate 83, blood pressure 161/78, respiratory rate 20, oxygen saturation 96% on 2 liters nasal cannula. HEAD AND NECK: Atraumatic. LUNGS: Clear to auscultation bilaterally. HEART: Regular rate and rhythm. S1, S2 normal. ABDOMEN: Soft, nontender, nondistended. MUSCULOSKELETAL: No C/C/E. NEUROLOGIC: The patient moves all extremities continuously. SKIN: Moist. PSYCHIATRIC: The patient is alert and oriented x 3. LABORATORY DATA: WBC 10.3, down from 11.2; hemoglobin 9.2, platelet count 408. Sodium 128, potassium 3.6, chloride 97, carbon dioxide 26, BUN 9, creatinine 0.7, glucose 80, AST 26, ALT 33. WBC 10. MEDICATIONS: Tylenol p.r.n., DuoNeb p.r.n., DuoNeb every 6 hours, Norvasc, clindamycin, clonidine, fluconazole, ferrous sulfate, Robitussin, Levemir, insulin lispro, lisinopril, Protonix, normal saline 75 mL per hour, linezolid. ASSESSMENT AND PLAN: This is a 61-year-old gentleman with persistent bacteremia and fever, who was found to have methicillin-sensitive Staphylococcus aureus and pneumonia and was treated accordingly by ID service with nafcillin. As he required relatively a prolonged course of antibiotics, linezolid was added to the regimen. JANEL was performed today, which did not reveal any intracardiac vegetation. The patient had a CAT scan of the chest, abdomen and pelvis and lumber spine, which did not reveal any acute findings that would potentially be a source of infection. Drawn a few days ago a blood culture also grew yeast, patient is on Diflucan. Of note, the patient does not have any indwelling IV catheters. Most importantly is that the patient subjectively is doing better. There is no clearcut source of infection and last blood culture was negative so far. I would recommend ophthalmology consult to rule out fungal retinitis, even though he does not complain of any difficulties or disturbances in his vision. Clinical improvement is very encouraging. I would expect radiographic picture lag behind clinical picture and I would recommend radiographic follow up in 1 month. I will continue with DVT and GI prophylaxis. Tripp Rubio MD cc: [id number] TT: 07/01/2016 18:57:53 Confirmation # [id number] Dictation # [id number] randell MULLER
--- NOTE | 2016-07-02 10:16 | CP.PCM.PN ---
<Aaron Oneal - Last Filed: 07/02/16 23:32> Subjective - Date & Time of Evaluation Date of Evaluation: 07/02/16 Time of Evaluation: 07:50 - Subjective Subjective: PGY-1 HOSPITALISTS PROGRESS NOTE Pt is seen and examined at bedside. Patient was afebrile overnight. His shortness of breath is improving steadily. He denies having any fevers/chills, abd pain, N/V/D/C. He was continuing to walk around the floors more today. He did complain of chest pain during exam and EKG and Troponins were ordered. Both were negative for ACS. Objective - Vital Signs/Intake and Output Vital Signs (last 24 hours): Temp Pulse Resp BP Pulse Ox 99.4 F 82 20 138/79 96 07/02/16 08:00 07/02/16 08:00 07/02/16 08:00 07/02/16 08:00 07/02/16 08:00 Intake and Output: 07/02/16 07/02/16 06:59 18:59 Intake Total 5580 Output Total 900 Balance 4680 - Medications Medications: Current Medications Acetaminophen (Tylenol 325mg Tab) 650 mg PO Q8 PRN PRN Reason: Fever >100.4 F Last Admin: 06/28/16 17:05 Dose: 650 mg Albuterol/Ipratropium (Duoneb 3 Mg/0.5 Mg (3 Ml) Ud) 3 ml IH Q2H PRN PRN Reason: Shortness of Breath Last Admin: 06/23/16 23:50 Dose: 3 ml Albuterol/Ipratropium (Duoneb 3 Mg/0.5 Mg (3 Ml) Ud) 3 ml IH [id number] LYN Last Admin: 07/02/16 09:09 Dose: 3 ml Amlodipine Besylate (Norvasc) 10 mg PO DAILY [facility] Last Admin: 07/01/16 12:36 Dose: 10 mg Clonidine HCl (Catapres) 0.1 mg PO TID PRN PRN Reason: Systolic Blood Pressure Last Admin: 06/26/16 16:25 Dose: 0.1 mg Emollient Ointment (Vaseline Oint) 5 gm TOP PRN LYN Ferrous Sulfate (Feosol Liq) 300 mg PO TID [facility] Last Admin: 07/01/16 18:54 Dose: 300 mg Guaifenesin (Robitussin) 100 mg PO Q4H PRN PRN Reason: Cough Last Admin: 07/02/16 06:23 Dose: 100 mg Clindamycin Phosphate 600 mg/ (Sodium Chloride) 54 mls @ 102 mls/hr IVPB Q8 LYN PRN Reason: Protocol Last Admin: 07/02/16 06:20 Dose: 102 mls/hr Linezolid (Zyvox 600mg/300ml D5w) 600 mg in 300 mls @ 200 mls/hr IVPB Q12 LYN PRN Reason: Protocol Last Admin: 07/02/16 01:30 Dose: 200 mls/hr Nafcillin Sodium 2 gm/ Sodium (Chloride) 100 mls @ 100 mls/hr IVPB Q6 LYN PRN Reason: Protocol Last Admin: 07/02/16 05:24 Dose: 100 mls/hr Sodium Chloride (Sodium Chloride 0.9%) 1,000 mls @ 75 mls/hr IV .[id number] [facility] Last Admin: 07/01/16 13:10 Dose: 75 mls/hr Fluconazole (Diflucan Iv 200 Mg/100 Ml Ns) 100 mls @ 100 mls/hr IVPB DAILY L[facility] PRN Reason: Protocol Last Admin: 07/01/16 14:49 Dose: 100 mls/hr Ibuprofen (Motrin Tab) 600 mg PO Q8 PRN PRN Reason: Fever >100.4 F Last Admin: 06/27/16 23:32 Dose: 600 mg Insulin Detemir (Levemir) 10 unit SC HS [facility] Last Admin: 07/01/16 23:29 Dose: 10 unit Insulin Human Lispro (Humalog Low) 0 units SC ACHS LYN PRN Reason: Protocol Last Admin: 07/01/16 23:28 Dose: Not Given Insulin Human Lispro (Humalog) 4 units SC AC LYN Lisinopril (Zestril) 30 mg PO DAILY [facility] Last Admin: 07/01/16 12:37 Dose: 30 mg Multi-Ingredient Cream (Hydrocerin Cream) 1 ea TOP DAILY [facility] Last Admin: 07/01/16 12:52 Dose: Not Given Pantoprazole Sodium (Protonix Ec Tab) 40 mg PO ACB [facility] Last Admin: 07/01/16 12:27 Dose: 40 mg - Labs Labs: 07/02/16 07:30 07/02/16 07:30 PT 10.7 Seconds (9.9-11.8) 06/19/16 18:15 INR 0.99 (0.93-1.08) 06/19/16 18:15 APTT 30.8 Seconds (23.7-30.8) 06/19/16 18:15 - Constitutional Appears: Non-toxic, No Acute Distress - Head Exam Head Exam: ATRAUMATIC, NORMOCEPHALIC - Eye Exam Eye Exam: EOMI - ENT Exam ENT Exam: Mucous Membranes Moist - Respiratory Exam Respiratory Exam: Rhonchi, NORMAL BREATHING PATTERN - Cardiovascular Exam Cardiovascular Exam: REGULAR RHYTHM, RRR, +S1, +S2. absent: JVD - GI/Abdominal Exam GI & Abdominal Exam: Soft, Tenderness, Normal Bowel Sounds - Extremities Exam Extremities Exam: absent: Joint Swelling, Pedal Edema - Back Exam Back Exam: tenderness. absent: rash noted - Neurological Exam Neurological Exam: Alert, Awake, Oriented x3 - Psychiatric Exam Psychiatric exam: Normal Affect, Normal Mood - Skin Skin Exam: Dry, Intact, Normal Color, Warm Assessment and Plan - Assessment and Plan (Free Text) Assessment: The patient is a 61 year old man with history of HTN and NIDDM who is being admitted to the ICU for DKA, hemoptysis and sepsis 2/2 PNA. Plan: 1. Diabetic Ketoacidosis (without coma): resolving -due to medication non-compliance -HgA1c 16.9 -Endo consult - Dr. Hurst -change to ISS -Levemir 24u SC HS -Humalog 14u AC -Lispro Low SS -Diabetic Diet -Diabetic Education 2. Sepsis 2/2 Pneumonia: improving decreased rhonchi -empiric IV antibiotics -ID consult Dr. Hankins - will follow ID recs -acid-fast testing of the sputum x 4 negative -MSSA per cultures 06/19, 06/21, 06/22 -Cultures from 06/24 show no growth after 5 days -Cultures from 06/27 show yeast species -On Diflucan 200mg IV daily -On Vancomycin and Nafcilln 2gm -Zyvox for better lung penetration. -Nafcillin Ophtho Consult - Dr. Schaffer - help appreciated -pt. to follow up with after d/c for complete eye exam. Cardiac Consult - Dr. Torres - help appreciated -ECHO- please see full report -LV normal size and function -mild concentric LV hypertrophy -no report of vegetations -JANEL did not show signs of vegetations. -CT Chest/Abdomen/Pelvis 06/20 - please see full report -shows mutifocal PNA w/ Tree/ bed changes. -Unclear if the tree/bud changes were present care home and not the new infiltrates are superimposed. -CT Chest with IV contrast 06/26 - please see full report -Multiple areas of consolidation are seen in both lungs, no sig zacarias from previous study -CT Abd/Pelvis with PO contrast - please see full report -worsening BL lower lobe infiltrates -no evidence of acute changes/abscess in report -CT Lumbosacral spine with IV contrast - please see full report -no evidence of acute changes/abscess in report 3. Acute Hemoptysis: resolved -ddx: TB vs malignancy -ruled out TB with three negative sets of sputum AFB samples -avoid anticoagulation 4. Acute Kidney Injury: resolved -likely pre-renal etiology due to intravascular depletion 5. Poorly Controlled Hypertension: resolving -due to medication non-compliance -Norvasc 10mg po daily -Clonidine 0.1mg po TID PRN SBP>165 -Lisinopril 30mg PO daily 6. GI Bleed/Anemia -complaint of black stools -Stool Occult Blood, Culture, C.diff ordered -Hgb steadily downtrending from 14 to 9.5 since admission -possibly 2/2 to aggressive fluids -Fe studies -low Fe, Fe%, TIBC -added Ferrous sulfate TID DVT PPx: Heparin SQ tid GI PPx: Protonix <Ashley Olson B - Last Filed: 07/03/16 15:07> Objective - Vital Signs/Intake and Output Vital Signs (last 24 hours): Temp Pulse Resp BP Pulse Ox 100 F H 92 H 20 159/88 H 95 07/03/16 08:05 07/03/16 11:16 07/03/16 08:05 07/03/16 11:16 07/03/16 08:05 Intake and Output: 07/03/16 07/03/16 06:59 18:59 Intake Total 1920 Output Total 4425 Balance -2505 - Medications Medications: Current Medications Acetaminophen (Tylenol 325mg Tab) 650 mg PO Q8 PRN PRN Reason: Fever >100.4 F Last Admin: 07/03/16 11:26 Dose: 650 mg Albuterol/Ipratropium (Duoneb 3 Mg/0.5 Mg (3 Ml) Ud) 3 ml IH Q2H PRN PRN Reason: Shortness of Breath Last Admin: 06/23/16 23:50 Dose: 3 ml Albuterol/Ipratropium (Duoneb 3 Mg/0.5 Mg (3 Ml) Ud) 3 ml IH [id number] [facility] Last Admin: 07/03/16 14:24 Dose: Not Given Amlodipine Besylate (Norvasc) 10 mg PO DAILY [facility] Last Admin: 07/03/16 11:16 Dose: 10 mg Clonidine HCl (Catapres) 0.1 mg PO TID PRN PRN Reason: Systolic Blood Pressure Last Admin: 06/26/16 16:25 Dose: 0.1 mg Emollient Ointment (Vaseline Oint) 5 gm TOP PRN LYN Ferrous Sulfate (Feosol Liq) 300 mg PO TID [facility] Last Admin: 07/03/16 14:49 Dose: 300 mg Guaifenesin (Robitussin) 100 mg PO Q4H PRN PRN Reason: Cough Last Admin: 07/03/16 11:26 Dose: 100 mg Nafcillin Sodium 2 gm/ Sodium (Chloride) 100 mls @ 100 mls/hr IVPB Q6 LYN PRN Reason: Protocol Last Admin: 07/03/16 12:34 Dose: 100 mls/hr Sodium Chloride (Sodium Chloride 0.9%) 1,000 mls @ 75 mls/hr IV .[id number] [facility] Last Admin: 07/01/16 13:10 Dose: 75 mls/hr Fluconazole (Diflucan Iv 200 Mg/100 Ml Ns) 100 mls @ 100 mls/hr IVPB DAILY [facility] PRN Reason: Protocol Last Admin: 07/03/16 11:14 Dose: 100 mls/hr Ibuprofen (Motrin Tab) 600 mg PO Q8 PRN PRN Reason: Fever >100.4 F Last Admin: 06/27/16 23:32 Dose: 600 mg Insulin Detemir (Levemir) 6 unit SC HS [facility] Last Admin: 07/02/16 22:31 Dose: 6 unit Insulin Human Lispro (Humalog Low) 0 units SC ACHS L[facility] PRN Reason: Protocol Last Admin: 07/03/16 11:30 Dose: Not Given Linezolid (Zyvox) 600 mg PO BID LYN PRN Reason: Protocol Last Admin: 07/03/16 11:19 Dose: 600 mg Lisinopril (Zestril) 30 mg PO DAILY [facility] Last Admin: 07/03/16 11:16 Dose: 30 mg Metformin HCl (Glucophage) 500 mg PO BID [facility] Last Admin: 07/03/16 11:15 Dose: 500 mg Multi-Ingredient Cream (Hydrocerin Cream) 1 ea TOP DAILY [facility] Last Admin: 07/03/16 11:16 Dose: Not Given Pantoprazole Sodium (Protonix Ec Tab) 40 mg PO ACB [facility] Last Admin: 07/03/16 08:37 Dose: 40 mg - Labs Labs: 07/03/16 07:00 07/03/16 07:00 PT 10.7 Seconds (9.9-11.8) 06/19/16 18:15 INR 0.99 (0.93-1.08) 06/19/16 18:15 APTT 30.8 Seconds (23.7-30.8) 06/19/16 18:15 Attending/Attestation - Attestation I have personally seen and examined this patient.: Yes I have fully participated in the care of the patient.: Yes I have reviewed all pertinent clinical information, including history, physical exam and plan: Yes Notes (Text): Patient seen and examined with resident. Agree with the above note with following additions/ exceptions: This is a 61 year old man with history of HTN and NIDDM who presented with generalized weakness, polydysia, polyuria, hemoptysis, cough with greenish/ brown colored sputum, intermittent confusion and found to have DKA, hemoptysis and sepsis due to a multifocal pneumonia. Patient was also found to have MSSA bacteremia. No fever overnight. CT chest showed multifocal pneumonia/nodular changes. Repeat CT did not show any improvement however patient has clinically been improving. AFB x 3 is negative. TTE showed no vegetations. He is on clindamycin, zyvox and nafcillin. Repeat blood culture from 06/24 are negative so far. Blood culture from 06/27 is growing yeast. Continue Diflucan. Opthalmology consult pending. JANEL is negative for vegetations. Anemia is multifactorial ( anemia of chronic disease and iron was also low). Stool for occult blood negative. No active bleeding noted. Continue iron pills. Dark stools noted. Stool for occult blood negative. Levemir and humalog was adjusted by endocrine. Follow up with endocrinology . Diabetic nurse educator evaluation appreciated. Dietary education given. Renal function and BP is stable. Plan to dc after ophthalmology evaluation. Dr Ashley Olson
--- NOTE | 2016-07-02 11:02 | CARD ---
APPROVED REPORT EKG Measurement Heart [id number] VA [id number] [id number] <Conclusion> Normal sinus rhythm Possible Left atrial enlargement Nonspecific T wave abnormality Prolonged QT Abnormal ECG
[2016-07-02] MEDS: Ferrous Sulfate 300 mg/5 mL Liq UD PO SCH ×2 (16:50→17:56)
[2016-07-02] MEDS: Insulin Lispro (humaLOG) LOW Coverage SC SCH ×4 (16:51→22:06)
[2016-07-02] MEDS: Pantoprazole 40 mg EC Tab PO SCH (16:56)
--- NOTE | 2016-07-02 17:21 | CP.PCM.PN ---
Subjective - Date & Time of Evaluation Date of Evaluation: 07/02/16 Time of Evaluation: 16:15 - Subjective Subjective: Infectious Disease Follow Up: July 02, 2016 61 yo male with presentation of 2 days of generalized weakness, polydysia, polyuria, hemoptysis, cough with green-colored sputum, intermittent confusion and some mild SOB. On CT scan, tree in bud formations seen. Patient placed under respiratory isolation for TB workup. The patient has no recent travel history. 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 Prior to that, he worked for a [employer] company for 7 years. Extensive pulmonary findings on CT scan. Case discussed with Dr. Moreno. Culture of blood showing gram positive cocci on multiple cultures with FISH testing showing Staph Aureus. Last Vancomycin level at 13.4. Acid-Fast Bacilli Sputum evaluations x 3 are negative. Multiple cultures with MSSA growth. Patient feeling better overall. Patient still with persistent cough. Imaging studies suggest worsening infiltrate. On Nafcillin and Vancomycin currently. JANEL done on Wednesday. Changed Vancomycin IV to Zyvox for better lung penetration Wednesday. Afebrile today. Cannot rule out malignancy as part of differential. The patient's JANEL did not show any vegetations. Repeat chest X- rays show persistent right lung infiltrates and right pleural effusion. Objective - Vital Signs/Intake and Output Vital Signs (last 24 hours): Temp Pulse Resp BP Pulse Ox 99.4 F 82 20 138/79 96 07/02/16 08:00 07/02/16 08:00 07/02/16 08:00 07/02/16 16:55 07/02/16 08:00 Intake and Output: 07/02/16 07/02/16 06:59 18:59 Intake Total 5580 Output Total 900 Balance 4680 - Medications Medications: Current Medications Acetaminophen (Tylenol 325mg Tab) 650 mg PO Q8 PRN PRN Reason: Fever >100.4 F Last Admin: 06/28/16 17:05 Dose: 650 mg Albuterol/Ipratropium (Duoneb 3 Mg/0.5 Mg (3 Ml) Ud) 3 ml IH Q2H PRN PRN Reason: Shortness of Breath Last Admin: 06/23/16 23:50 Dose: 3 ml Albuterol/Ipratropium (Duoneb 3 Mg/0.5 Mg (3 Ml) Ud) 3 ml IH [id number] [facility] Last Admin: 07/02/16 13:35 Dose: 3 ml Amlodipine Besylate (Norvasc) 10 mg PO DAILY [facility] Last Admin: 07/02/16 16:55 Dose: 10 mg Clonidine HCl (Catapres) 0.1 mg PO TID PRN PRN Reason: Systolic Blood Pressure Last Admin: 06/26/16 16:25 Dose: 0.1 mg Emollient Ointment (Vaseline Oint) 5 gm TOP PRN LYN Ferrous Sulfate (Feosol Liq) 300 mg PO TID [facility] Last Admin: 07/02/16 16:50 Dose: 300 mg Guaifenesin (Robitussin) 100 mg PO Q4H PRN PRN Reason: Cough Last Admin: 07/02/16 15:52 Dose: 100 mg Linezolid (Zyvox 600mg/300ml D5w) 600 mg in 300 mls @ 200 mls/hr IVPB Q12 LYN PRN Reason: Protocol Last Admin: 07/02/16 01:30 Dose: 200 mls/hr Nafcillin Sodium 2 gm/ Sodium (Chloride) 100 mls @ 100 mls/hr IVPB Q6 LYN PRN Reason: Protocol Last Admin: 07/02/16 16:52 Dose: 100 mls/hr Sodium Chloride (Sodium Chloride 0.9%) 1,000 mls @ 75 mls/hr IV .[id number] [facility] Last Admin: 07/01/16 13:10 Dose: 75 mls/hr Fluconazole (Diflucan Iv 200 Mg/100 Ml Ns) 100 mls @ 100 mls/hr IVPB DAILY [facility] PRN Reason: Protocol Last Admin: 07/01/16 14:49 Dose: 100 mls/hr Ibuprofen (Motrin Tab) 600 mg PO Q8 PRN PRN Reason: Fever >100.4 F Last Admin: 06/27/16 23:32 Dose: 600 mg Insulin Detemir (Levemir) 6 unit SC HS [facility] Insulin Human Lispro (Humalog Low) 0 units SC ACHS [facility] PRN Reason: Protocol Last Admin: 07/02/16 16:59 Dose: 2 units Lisinopril (Zestril) 30 mg PO DAILY [facility] Last Admin: 07/02/16 16:58 Dose: 30 mg Metformin HCl (Glucophage) 500 mg PO BID [facility] Multi-Ingredient Cream (Hydrocerin Cream) 1 ea TOP DAILY [facility] Last Admin: 07/01/16 12:52 Dose: Not Given Pantoprazole Sodium (Protonix Ec Tab) 40 mg PO ACB [facility] Last Admin: 07/02/16 16:56 Dose: 40 mg - Labs Labs: 07/02/16 07:30 07/02/16 07:30 PT 10.7 Seconds (9.9-11.8) 06/19/16 18:15 INR 0.99 (0.93-1.08) 06/19/16 18:15 APTT 30.8 Seconds (23.7-30.8) 06/19/16 18:15 - Constitutional Appears: Non-toxic, No Acute Distress, Chronically Ill - Head Exam Head Exam: ATRAUMATIC, NORMOCEPHALIC - Eye Exam Eye Exam: EOMI, PERRL Pupil Exam: NORMAL ACCOMODATION, PERRL - ENT Exam ENT Exam: Mucous Membranes Moist, Normal External Ear Exam, TM's Normal Bilaterally - Neck Exam Neck Exam: Full ROM, Normal Inspection - Respiratory Exam Respiratory Exam: Decreased Breath Sounds, Clear to Ausculation Bilateral, Rales , NORMAL BREATHING PATTERN. absent: Rhonchi, Wheezes - Cardiovascular Exam Cardiovascular Exam: REGULAR RHYTHM, RRR, +S1, +S2 - GI/Abdominal Exam GI & Abdominal Exam: Soft, Normal Bowel Sounds. absent: Distended, Tenderness - Extremities Exam Extremities Exam: Full ROM, Normal Inspection - Neurological Exam Neurological Exam: Alert, Awake, CN II-XII Intact, Oriented x3 - Psychiatric Exam Psychiatric exam: Normal Affect, Normal Mood - Skin Skin Exam: Intact, Normal Color Assessment and Plan - Assessment and Plan (Free Text) Assessment: 61 yo male presenting with Uncontrolled DM and DKA. Incidental finding of pneumonic picture with a possibility for TB. The patient is under isolation for TB. Risks for TB appear to be low. The patient for acid-fast testing of the sputum x 3. Cannot rule out ALISON, fungal, or severe bacterial infections such as Staph Aureus or Strep Pneumonia. He is being treated for his DKA. On Vancomycin and Zosyn. gram positive cocci in blood cultures. May need to consider Teflaro instead to get better concentrations in the lung for MRSA. Supportive care. AFB x 3 negative. Multiple blood cultures with gram positive cocci. FISH indicating Staph Aureus. On Vancomycin and Zosyn currently. Would obtain Quantiferon for reference point... a positive Quantiferon would not impact management of the case at this time. This test would only indicate patient exposure during his lifetime. Would obtain echocardiogram as well. MSSA in multiple cultures. TTE does not show vegetations. The patient appears to be improving. Switched from Zosyn to Nafcillin during this hospitalization. Persistent cough. X-ray of chest and CT Abd/Pel showing worsening left sided infiltrates. CT of the Chest is pending. Switch Vancomycin to Zyvox on Wednesday. On Zyvox and Nafcillin currently. Planned for JANEL Wednesday (done). Persistent fevers and cough. Cannot rule out malignancy as part of the differential. Await official results of the JANEL - preliminary report is no vegetations. Patient with yeast growth on one blood culture. Awaiting identification of yeast. Started on Diflucan 200mg IV daily for now. Clinically the patient is improving. Use of Zyvox and Augmentin for antibiotic coverage and continued coverage with Diflucan for outpatient for 10-14 days more. Thank you for allowing me to participate in the care of this patient, we will follow with you.
--- NOTE | 2016-07-02 17:47 | PN ---
DATE: 07/02/2016 SUBJECTIVE: The patient seen and examined at bedside. He is comfortable. He talks full sentences. He is not in respiratory or otherwise distress. He still complains of some mild cough with sputum production, unchanged. PHYSICAL EXAMINATION: VITAL SIGNS: Temperature 99.4 (patient is afebrile for 3 days now), blood pressure 138/79, respiratory rate 20, oxygen saturation 96% on room air. HEAD AND NECK: Atraumatic. LUNGS: Few crackles bibasilarly, right more than left. HEART: Regular rate and rhythm. S1, S2 normal. ABDOMEN: Soft, nontender, nondistended. MUSCULOSKELETAL: No C/C/E. NEUROLOGIC: The patient moves all extremities spontaneously. SKIN: Moist. PSYCHIATRIC: The patient is alert and oriented x 3. LABORATORY DATA: WBC 8.4, hemoglobin 9.4, platelet count 400. Sodium 140, potassium 4.4, chloride 106, carbon dioxide 27, BUN 3, creatinine 1.1, glucose 223. MEDICATIONS: Tylenol p.r.n., DuoNeb p.r.n., DuoNeb every 6 hours, Norvasc, clonidine p.r.n., fluconazole, Feosol, Robitussin p.r.n., ibuprofen p.r.n., Levemir, Humalog, lisinopril, Protonix, potassium supplementation, normal saline at 75 mL per hour, Zyvox. ASSESSMENT AND PLAN: This is a 61-year-old gentleman with methicillin- sensitive Staphylococcus aureus community-acquired pneumonia. At present time, the patient is afebrile. His last blood culture is negative. The patient is on fluconazole for 1 blood culture in the past positive for yeast infection. At present time, the patient appears to be clinically stable, hemodynamically and respiratory-alberts. We will continue with antibiotics. Would repeat chest x- ray or CAT scan in 1 month to ascertain resolution of the infiltrate. Will continue to target euvolemia, euglycemia, normothermia, and oxygen saturation more than 90%. Will continue with deep venous thrombosis and gastrointestinal prophylaxis. Tripp Rubio MD cc: [id number] TT: 07/02/2016 17:47:08 Confirmation # [id number] Dictation # [id number] MTDD
[2016-07-02] MEDS: Hydrocerin(120 gm) TOP SCH (19:14)
[2016-07-02] MEDS: Fluconazole IV 200mg/100 ml NS 100 ML IVPB SCH (19:21)
[2016-07-02] MEDS: Insulin Detemir 100 units/ml Vial (Levemir) SC SCH (22:31)
[2016-07-03] MEDS: Nafcillin 2 GM in Sodium Chloride 0.9% 100 ML IVPB SCH ×4 (00:06→18:30)
[2016-07-03] MEDS: Albuterol-Ipratrop 3 mg / 0.5 (3 ml) UD IH SCH ×4 (01:47→20:48)
[2016-07-03] MEDS: guaiFENesin 100 mg/5 ml Syrup UD PO PRN ×3 (05:59→21:07)
[2016-07-03 07:27] LABS: ADD MANUAL DIFF? NO
[2016-07-03] MEDS: Insulin Lispro (humaLOG) LOW Coverage SC SCH ×4 (07:30→22:15)
[2016-07-03 07:32] LABS: BASO # 0.03 K/mm3 (0.0-2.0); BASO % 0.3 % (0.0-3.0); EOS # 0.1 (0.0-0.7); EOS % 0.5 % (1.5-5.0); GRAN # 7.07 (1.4-6.5); GRAN % 74.8 % (50.0-68.0); HEMATOCRIT 27.7 % (42.0-52.0); LYMPH # 1.8 (1.2-3.4); LYMPH % 18.8 % (22.0-35.0); MEAN CELL VOLUME 86.6 fL (80.0-105.0); MEAN CORPUSCULAR HEMOGLOBIN 27.5 pg (25.0-35.0); MEAN CORPUSCULAR HGB CONC 31.8 g/dl (31.0-37.0); MONO # 0.5 (0.1-0.6); MONO % 5.6 % (1.0-6.0); PLATELET COUNT 377 10^3/uL (120.0-450.0); RED CELL DISTRIBUTION WIDTH 14.9 % (11.5-14.5); WHITE BLOOD COUNT 9.5 10^3/ul (4.5-11.0)
[2016-07-03 07:41] LABS: ALB/GLOB RATIO 0.7 (1.1-1.8); ALKALINE PHOSPHATASE 67 U/L (38-133); ALT/SGPT 35 U/L (7-56); AST/SGOT 24 U/L (15-59); BILIRUBIN,TOTAL 0.6 mg/dL (0.2-1.3); BLOOD UREA NITROGEN 4 mg/dL (7-21); CARBON DIOXIDE 30 mmol/L (21-33); CHLORIDE 105 mmol/L (95-110); GFR AFRICAN-AMERICAN > 60; GLUCOSE,RANDOM 119 mg/dL (70-110); POTASSIUM 4.1 mmol/L (3.6-5.0); SODIUM 138 mmol/L (132-148); TOTAL PROTEIN 6.6 g/dL (5.8-8.3)
--- NOTE | 2016-07-03 08:07 | PN ---
DATE: 07/02/2016 LOCATION: Room 570. SUBJECTIVE: This is a 61-year-old male with recent uncontrolled type 2 insulin-requiring diabetes, n ow being followed closely for metabolic management. recent . glycemic levels are r emarkably improved with the initiation of initially , and as his clinical condition has , t hen we will taper down his insulin regimen accordingly. LABORATORY DATA: His latest glucose levels have ranged from 80 to 126 and 223 mg/dL. ASSESSMENT AND PLAN: So, at this time, will actually discontinue the Humalog given as 4 units subcut aneous t.i.d. before meals, and lower the Levemir to 6 units subcutaneous at bedtime daily . Wi ll eventually switch him over to oral hypoglycemic drug therapy just prior to his actual discharge. He was actually only on oral agents prior to this admission. Sherri Hurst MD cc: [id number] TT: 07/02/2016 18:00:09 Confirmation # [id number] Dictation # [id number] dn
[2016-07-03] MEDS: Pantoprazole 40 mg EC Tab PO SCH (08:37)
--- NOTE | 2016-07-03 11:02 | RAD ---
HISTORY: pneumonia COMPARISON: 07/02/2016 FINDINGS: LUNGS: No significant change in the right-sided alveolar infiltrates. The left side remains clear PLEURA: No significant pleural effusion identified, no pneumothorax apparent. CARDIOVASCULAR: Normal. OSSEOUS STRUCTURES: No significant abnormalities. VISUALIZED UPPER ABDOMEN: Normal. OTHER FINDINGS: None. IMPRESSION: No significant change in the right-sided alveolar infiltrates. The left side remains clear
[2016-07-03] MEDS: Fluconazole IV 200mg/100 ml NS 100 ML IVPB SCH (11:14)
[2016-07-03] MEDS: Ferrous Sulfate 300 mg/5 mL Liq UD PO SCH ×3 (11:15→18:31)
[2016-07-03] MEDS: Hydrocerin(120 gm) TOP SCH (11:16)
--- NOTE | 2016-07-03 11:26 | RAD ---
HISTORY: pneumonia COMPARISON: 07/01/2016 FINDINGS: LUNGS: Alveolar infiltrates are seen in the right lung unchanged PLEURA: No significant pleural effusion identified, no pneumothorax apparent. CARDIOVASCULAR: Normal. OSSEOUS STRUCTURES: No significant abnormalities. VISUALIZED UPPER ABDOMEN: Normal. OTHER FINDINGS: None. IMPRESSION: Alveolar infiltrates are seen in the right lung unchanged
--- NOTE | 2016-07-03 12:59 | PN ---
DATE: 07/03/2016 ROOM: 570. SUBJECTIVE: This is a 61-year-old male with recent uncontrolled type 2 insulin-requiring diabetes, n ow being followed closely for metabolic management. His glycemic levels were initially fluctuating, but have improved accordingly over the last few days as noted. He has even been taken off the Humalo g or prandial insulin regimen as noted. His glucose values today have ranged from 141-187 mg/dL. It was 126-179 last night as noted. The latest chemistry showed a BUN of 4, sodium 138, potassium 4.1, chloride 105, CO2 30, glucose 119 and creatinine 1.2. So, at this time, we will continue the oral hypoglycemic drug therapy as given with metformin given a s 500 mg b.i.d. after meals as ordered. We will eventually taper him down the Levemir, which is now down to a very low dose of 6 units subQ at bedtime daily as ordered. May consider the addition of Ja brenda orally in the morning as indicated, just prior to his eventual discharge. He was not using any kind of insulin therapy prior to this admission. We will follow and advise accordingly. Sherri Hurst MD cc: [id number] TT: 07/03/2016 12:58:39 Confirmation # [id number] Dictation # [id number]
--- NOTE | 2016-07-03 14:16 | CP.PCM.PN ---
Subjective - Date & Time of Evaluation Date of Evaluation: 07/03/16 Time of Evaluation: 13:00 - Subjective Subjective: 61 y/o M seen resting in bed in good spirits. No futher fevers since 06/30. Still has some productive sputum (yellow). Was able to walk around the nursing floors 5 times w/ SOB. Objective - Vital Signs/Intake and Output Vital Signs (last 24 hours): Temp Pulse Resp BP Pulse Ox 100 F H 92 H 20 159/88 H 95 07/03/16 08:05 07/03/16 11:16 07/03/16 08:05 07/03/16 11:16 07/03/16 08:05 Intake and Output: 07/03/16 07/03/16 06:59 18:59 Intake Total 1920 Output Total 4425 Balance -2505 - Medications Medications: Current Medications Acetaminophen (Tylenol 325mg Tab) 650 mg PO Q8 PRN PRN Reason: Fever >100.4 F Last Admin: 07/03/16 11:26 Dose: 650 mg Albuterol/Ipratropium (Duoneb 3 Mg/0.5 Mg (3 Ml) Ud) 3 ml IH Q2H PRN PRN Reason: Shortness of Breath Last Admin: 06/23/16 23:50 Dose: 3 ml Albuterol/Ipratropium (Duoneb 3 Mg/0.5 Mg (3 Ml) Ud) 3 ml IH [id number] [facility] Last Admin: 07/03/16 07:45 Dose: 3 ml Amlodipine Besylate (Norvasc) 10 mg PO DAILY [facility] Last Admin: 07/03/16 11:16 Dose: 10 mg Clonidine HCl (Catapres) 0.1 mg PO TID PRN PRN Reason: Systolic Blood Pressure Last Admin: 06/26/16 16:25 Dose: 0.1 mg Emollient Ointment (Vaseline Oint) 5 gm TOP PRN LYN Ferrous Sulfate (Feosol Liq) 300 mg PO TID [facility] Last Admin: 07/03/16 11:15 Dose: 300 mg Guaifenesin (Robitussin) 100 mg PO Q4H PRN PRN Reason: Cough Last Admin: 07/03/16 11:26 Dose: 100 mg Nafcillin Sodium 2 gm/ Sodium (Chloride) 100 mls @ 100 mls/hr IVPB Q6 [facility] PRN Reason: Protocol Last Admin: 07/03/16 12:34 Dose: 100 mls/hr Sodium Chloride (Sodium Chloride 0.9%) 1,000 mls @ 75 mls/hr IV .[id number] [facility] Last Admin: 07/01/16 13:10 Dose: 75 mls/hr Fluconazole (Diflucan Iv 200 Mg/100 Ml Ns) 100 mls @ 100 mls/hr IVPB DAILY [facility] PRN Reason: Protocol Last Admin: 07/03/16 11:14 Dose: 100 mls/hr Ibuprofen (Motrin Tab) 600 mg PO Q8 PRN PRN Reason: Fever >100.4 F Last Admin: 06/27/16 23:32 Dose: 600 mg Insulin Detemir (Levemir) 6 unit SC HS [facility] Last Admin: 07/02/16 22:31 Dose: 6 unit Insulin Human Lispro (Humalog Low) 0 units SC ACHS [facility] PRN Reason: Protocol Last Admin: 07/03/16 11:30 Dose: Not Given Linezolid (Zyvox) 600 mg PO BID [facility] PRN Reason: Protocol Last Admin: 07/03/16 11:19 Dose: 600 mg Lisinopril (Zestril) 30 mg PO DAILY [facility] Last Admin: 07/03/16 11:16 Dose: 30 mg Metformin HCl (Glucophage) 500 mg PO BID [facility] Last Admin: 07/03/16 11:15 Dose: 500 mg Multi-Ingredient Cream (Hydrocerin Cream) 1 ea TOP DAILY [facility] Last Admin: 07/03/16 11:16 Dose: Not Given Pantoprazole Sodium (Protonix Ec Tab) 40 mg PO ACB [facility] Last Admin: 07/03/16 08:37 Dose: 40 mg - Labs Labs: 07/03/16 07:00 07/03/16 07:00 PT 10.7 Seconds (9.9-11.8) 06/19/16 18:15 INR 0.99 (0.93-1.08) 06/19/16 18:15 APTT 30.8 Seconds (23.7-30.8) 06/19/16 18:15 - Constitutional Appears: Well - Head Exam Head Exam: NORMAL INSPECTION - Eye Exam Eye Exam: EOMI, Normal appearance Pupil Exam: PERRL - ENT Exam ENT Exam: Mucous Membranes Moist - Neck Exam Neck Exam: Full ROM - Respiratory Exam Respiratory Exam: Clear to Ausculation Bilateral, NORMAL BREATHING PATTERN - Cardiovascular Exam Cardiovascular Exam: REGULAR RHYTHM - GI/Abdominal Exam GI & Abdominal Exam: Normal Bowel Sounds - Exam Exam: NORMAL INSPECTION - Back Exam Back Exam: NORMAL INSPECTION - Psychiatric Exam Psychiatric exam: Normal Mood - Skin Skin Exam: Normal Color Assessment and Plan - Assessment and Plan (Free Text) Assessment: 61 y/o M w/ MSSA Pneumonia Continued on Nafcillin and Zyvox to complete course of 14 days and added Anti fungals in the state of possible immunocompromised state and yeast in sputum No fevers since 06/30. Blood cx negative, no further Sputum cx. No findings on JANEL. Serology negative thus far. Feels improved. awaiting PT and dispo per hospitalists. dvt p hep sq tid
--- NOTE | 2016-07-03 14:26 | CP.PCM.PN ---
<Aaron Oneal - Last Filed: 07/03/16 14:31> Subjective - Date & Time of Evaluation Date of Evaluation: 07/03/16 Time of Evaluation: 07:00 - Subjective Subjective: PGY-1 HOSPITALISTS PROGRESS NOTE Pt is seen and examined at bedside. Patient had a temp of 100.0F and was given Tylenol. Repeat temps were <100 throughout the day. He has no complaints and denies having any chills, abd pain, N/V/D/C. He was continuing to walk around the floors more today and is tolerating his diet. Objective - Vital Signs/Intake and Output Vital Signs (last 24 hours): Temp Pulse Resp BP Pulse Ox 100 F H 92 H 20 159/88 H 95 07/03/16 08:05 07/03/16 11:16 07/03/16 08:05 07/03/16 11:16 07/03/16 08:05 Intake and Output: 07/03/16 07/03/16 06:59 18:59 Intake Total 1920 Output Total 4425 Balance -2505 - Medications Medications: Current Medications Acetaminophen (Tylenol 325mg Tab) 650 mg PO Q8 PRN PRN Reason: Fever >100.4 F Last Admin: 07/03/16 11:26 Dose: 650 mg Albuterol/Ipratropium (Duoneb 3 Mg/0.5 Mg (3 Ml) Ud) 3 ml IH Q2H PRN PRN Reason: Shortness of Breath Last Admin: 06/23/16 23:50 Dose: 3 ml Albuterol/Ipratropium (Duoneb 3 Mg/0.5 Mg (3 Ml) Ud) 3 ml IH [id number] [facility] Last Admin: 07/03/16 14:24 Dose: Not Given Amlodipine Besylate (Norvasc) 10 mg PO DAILY [facility] Last Admin: 07/03/16 11:16 Dose: 10 mg Clonidine HCl (Catapres) 0.1 mg PO TID PRN PRN Reason: Systolic Blood Pressure Last Admin: 06/26/16 16:25 Dose: 0.1 mg Emollient Ointment (Vaseline Oint) 5 gm TOP PRN LYN Ferrous Sulfate (Feosol Liq) 300 mg PO TID [facility] Last Admin: 07/03/16 11:15 Dose: 300 mg Guaifenesin (Robitussin) 100 mg PO Q4H PRN PRN Reason: Cough Last Admin: 07/03/16 11:26 Dose: 100 mg Nafcillin Sodium 2 gm/ Sodium (Chloride) 100 mls @ 100 mls/hr IVPB Q6 [facility] PRN Reason: Protocol Last Admin: 07/03/16 12:34 Dose: 100 mls/hr Sodium Chloride (Sodium Chloride 0.9%) 1,000 mls @ 75 mls/hr IV .[id number] [facility] Last Admin: 07/01/16 13:10 Dose: 75 mls/hr Fluconazole (Diflucan Iv 200 Mg/100 Ml Ns) 100 mls @ 100 mls/hr IVPB DAILY [facility] PRN Reason: Protocol Last Admin: 07/03/16 11:14 Dose: 100 mls/hr Ibuprofen (Motrin Tab) 600 mg PO Q8 PRN PRN Reason: Fever >100.4 F Last Admin: 06/27/16 23:32 Dose: 600 mg Insulin Detemir (Levemir) 6 unit SC HS [facility] Last Admin: 07/02/16 22:31 Dose: 6 unit Insulin Human Lispro (Humalog Low) 0 units SC ACHS [facility] PRN Reason: Protocol Last Admin: 07/03/16 11:30 Dose: Not Given Linezolid (Zyvox) 600 mg PO BID [facility] PRN Reason: Protocol Last Admin: 07/03/16 11:19 Dose: 600 mg Lisinopril (Zestril) 30 mg PO DAILY [facility] Last Admin: 07/03/16 11:16 Dose: 30 mg Metformin HCl (Glucophage) 500 mg PO BID [facility] Last Admin: 07/03/16 11:15 Dose: 500 mg Multi-Ingredient Cream (Hydrocerin Cream) 1 ea TOP DAILY [facility] Last Admin: 07/03/16 11:16 Dose: Not Given Pantoprazole Sodium (Protonix Ec Tab) 40 mg PO ACB [facility] Last Admin: 07/03/16 08:37 Dose: 40 mg - Labs Labs: 07/03/16 07:00 07/03/16 07:00 PT 10.7 Seconds (9.9-11.8) 06/19/16 18:15 INR 0.99 (0.93-1.08) 06/19/16 18:15 APTT 30.8 Seconds (23.7-30.8) 06/19/16 18:15 - Constitutional Appears: Non-toxic, No Acute Distress - Head Exam Head Exam: ATRAUMATIC, NORMOCEPHALIC - Eye Exam Eye Exam: EOMI - ENT Exam ENT Exam: Mucous Membranes Moist - Respiratory Exam Respiratory Exam: Rhonchi, NORMAL BREATHING PATTERN - Cardiovascular Exam Cardiovascular Exam: REGULAR RHYTHM, RRR, +S1, +S2. absent: JVD - GI/Abdominal Exam GI & Abdominal Exam: Soft, Tenderness, Normal Bowel Sounds - Extremities Exam Extremities Exam: absent: Joint Swelling, Pedal Edema - Back Exam Back Exam: tenderness. absent: rash noted - Neurological Exam Neurological Exam: Alert, Awake, Oriented x3 - Psychiatric Exam Psychiatric exam: Normal Affect, Normal Mood - Skin Skin Exam: Dry, Intact, Normal Color, Warm Assessment and Plan - Assessment and Plan (Free Text) Assessment: The patient is a 61 year old man with history of HTN and NIDDM who is being admitted to the ICU for DKA, hemoptysis and sepsis 2/2 PNA. Plan: 1. Diabetic Ketoacidosis (without coma): resolving -due to medication non-compliance -HgA1c 16.9 -Endo consult - Dr. Hurst -change to ISS -Levemir 24u SC HS -Humalog 14u AC -Lispro Low SS -Diabetic Diet -Diabetic Education 2. Sepsis 2/2 Pneumonia: improving, decreased rhonchi -empiric IV antibiotics -ID consult Dr. Hankins - will follow ID recs -acid-fast testing of the sputum x 4 negative -MSSA per cultures 06/19, 06/21, 06/22 -Cultures from 06/24 show no growth after 5 days -Cultures from 06/27 show yeast species -On Diflucan 200mg IV daily -On Vancomycin and Nafcilln 2gm -Zyvox for better lung penetration. -Nafcillin -On D/C pt. to start the following: -Augmentin 875 PO BID x10 days -Zyvox 600mg PO BID x 10 days -Diflucan 200mg PO daily x 14 days Ophtho Consult - Dr. Schaffer - help appreciated -pt. to follow up with after d/c for complete eye exam. Cardiac Consult - Dr. Torres - help appreciated -ECHO- please see full report -LV normal size and function -mild concentric LV hypertrophy -no report of vegetations -JANEL did not show signs of vegetations. -CT Chest/Abdomen/Pelvis 06/20 - please see full report -shows mutifocal PNA w/ Tree/ bed changes. 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 -CT Chest with IV contrast 06/26 - please see full report -Multiple areas of consolidation are seen in both lungs, no sig zacarias from previous study -CT Abd/Pelvis with PO contrast - please see full report -worsening BL lower lobe infiltrates -no evidence of acute changes/abscess in report -CT Lumbosacral spine with IV contrast - please see full report -no evidence of acute changes/abscess in report 3. Acute Hemoptysis: resolved -ddx: TB vs malignancy -ruled out TB with three negative sets of sputum AFB samples -avoid anticoagulation 4. Acute Kidney Injury: resolved -likely pre-renal etiology due to intravascular depletion 5. Poorly Controlled Hypertension: resolving -due to medication non-compliance -Norvasc 10mg po daily -Clonidine 0.1mg po TID PRN SBP>165 -Lisinopril 30mg PO daily 6. GI Bleed/Anemia -complaint of black stools -Stool Occult Blood, Culture, C.diff ordered -Hgb steadily downtrending from 14 to 9.5 since admission -possibly 2/2 to aggressive fluids -Fe studies -low Fe, Fe%, TIBC -added Ferrous sulfate TID DVT PPx: Heparin SQ tid GI PPx: Protonix <Ashley Olson B - Last Filed: 07/03/16 15:10> Objective - Vital Signs/Intake and Output Vital Signs (last 24 hours): Temp Pulse Resp BP Pulse Ox 100 F H 92 H 20 159/88 H 95 07/03/16 08:05 07/03/16 11:16 07/03/16 08:05 07/03/16 11:16 07/03/16 08:05 Intake and Output: 07/03/16 07/03/16 06:59 18:59 Intake Total 1920 Output Total 4401 Balance -2505 - Medications Medications: Current Medications Acetaminophen (Tylenol 325mg Tab) 650 mg PO Q8 PRN PRN Reason: Fever >100.4 F Last Admin: 07/03/16 11:26 Dose: 650 mg Albuterol/Ipratropium (Duoneb 3 Mg/0.5 Mg (3 Ml) Ud) 3 ml IH Q2H PRN PRN Reason: Shortness of Breath Last Admin: 06/23/16 23:50 Dose: 3 ml Albuterol/Ipratropium (Duoneb 3 Mg/0.5 Mg (3 Ml) Ud) 3 ml IH [id number] [facility] Last Admin: 07/03/16 14:24 Dose: Not Given Amlodipine Besylate (Norvasc) 10 mg PO DAILY [facility] Last Admin: 07/03/16 11:16 Dose: 10 mg Clonidine HCl (Catapres) 0.1 mg PO TID PRN PRN Reason: Systolic Blood Pressure Last Admin: 06/26/16 16:25 Dose: 0.1 mg Emollient Ointment (Vaseline Oint) 5 gm TOP PRN LYN Ferrous Sulfate (Feosol Liq) 300 mg PO TID [facility] Last Admin: 07/03/16 14:49 Dose: 300 mg Guaifenesin (Robitussin) 100 mg PO Q4H PRN PRN Reason: Cough Last Admin: 07/03/16 11:26 Dose: 100 mg Nafcillin Sodium 2 gm/ Sodium (Chloride) 100 mls @ 100 mls/hr IVPB Q6 [facility] PRN Reason: Protocol Last Admin: 07/03/16 12:34 Dose: 100 mls/hr Sodium Chloride (Sodium Chloride 0.9%) 1,000 mls @ 75 mls/hr IV .[id number] [facility] Last Admin: 07/01/16 13:10 Dose: 75 mls/hr Fluconazole (Diflucan Iv 200 Mg/100 Ml Ns) 100 mls @ 100 mls/hr IVPB DAILY [facility] PRN Reason: Protocol Last Admin: 07/03/16 11:14 Dose: 100 mls/hr Ibuprofen (Motrin Tab) 600 mg PO Q8 PRN PRN Reason: Fever >100.4 F Last Admin: 06/27/16 23:32 Dose: 600 mg Insulin Detemir (Levemir) 6 unit SC HS [facility] Last Admin: 07/02/16 22:31 Dose: 6 unit Insulin Human Lispro (Humalog Low) 0 units SC ACHS [facility] PRN Reason: Protocol Last Admin: 07/03/16 11:30 Dose: Not Given Linezolid (Zyvox) 600 mg PO BID [facility] PRN Reason: Protocol Last Admin: 07/03/16 11:19 Dose: 600 mg Lisinopril (Zestril) 30 mg PO DAILY [facility] Last Admin: 07/03/16 11:16 Dose: 30 mg Metformin HCl (Glucophage) 500 mg PO BID [facility] Last Admin: 07/03/16 11:15 Dose: 500 mg Multi-Ingredient Cream (Hydrocerin Cream) 1 ea TOP DAILY [facility] Last Admin: 07/03/16 11:16 Dose: Not Given Pantoprazole Sodium (Protonix Ec Tab) 40 mg PO ACB [facility] Last Admin: 07/03/16 08:37 Dose: 40 mg - Labs Labs: 07/03/16 07:00 07/03/16 07:00 PT 10.7 Seconds (9.9-11.8) 06/19/16 18:15 INR 0.99 (0.93-1.08) 06/19/16 18:15 APTT 30.8 Seconds (23.7-30.8) 06/19/16 18:15 Attending/Attestation - Attestation I have personally seen and examined this patient.: Yes I have fully participated in the care of the patient.: Yes I have reviewed all pertinent clinical information, including history, physical exam and plan: Yes Notes (Text): Patient seen and examined with resident. Agree with the above note with following additions/ exceptions: This is a 61 year old man with history of HTN and NIDDM who presented with generalized weakness, polydysia, polyuria, hemoptysis, cough with greenish/ brown colored sputum, intermittent confusion and found to have DKA, hemoptysis and sepsis due to a multifocal pneumonia. Patient was also found to have MSSA bacteremia. No fever overnight. CT chest showed multifocal pneumonia/nodular changes. Repeat CT did not show any improvement however patient has clinically been improving. AFB x 3 is negative. TTE showed no vegetations. He is on clindamycin, zyvox and nafcillin. Repeat blood culture from 06/24 are negative so far. Blood culture from 06/27 is growing yeast. Continue Diflucan. Opthalmology consult pending. JANEL is negative for vegetations. Anemia is multifactorial ( anemia of chronic disease and iron was also low). Stool for occult blood negative. No active bleeding noted. Continue iron pills. Dark stools noted. Stool for occult blood negative. Levemir and humalog was adjusted by endocrine. Follow up with endocrinology . Diabetic nurse educator evaluation appreciated. Dietary education given. Renal function and BP is stable. Plan to dc after ophthalmology evaluation. Dr Ashley Olson
--- NOTE | 2016-07-03 16:49 | CP.PCM.PN ---
Subjective - Date & Time of Evaluation Date of Evaluation: 07/03/16 Time of Evaluation: 15:30 - Subjective Subjective: Infectious Disease Follow Up: July 03, 2016 61 yo male with presentation of 2 days of generalized weakness, polydysia, polyuria, hemoptysis, cough with green-colored sputum, intermittent confusion and some mild SOB. On CT scan, tree in bud formations seen. Patient placed under respiratory isolation for TB workup. The patient has no recent travel history. 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 Prior to that, he worked for a [employer] company for 7 years. Extensive pulmonary findings on CT scan. Case discussed with Dr. Moreno. Culture of blood showing gram positive cocci on multiple cultures with FISH testing showing Staph Aureus. Last Vancomycin level at 13.4. Acid-Fast Bacilli Sputum evaluations x 3 are negative. Multiple cultures with MSSA growth. Patient feeling better overall. Patient still with persistent cough. Imaging studies suggest worsening infiltrate. On Nafcillin and Zyvox. JANEL done on Wednesday. Changed Vancomycin IV to Zyvox for better lung penetration Wednesday. Afebrile today. Cannot rule out malignancy as part of differential. The patient's JANEL did not show any vegetations. Repeat chest X- rays show persistent right lung infiltrates and right pleural effusion. On the whole, the patient is clinically improving. Noted that temperature went up to 100.0 F. Objective - Vital Signs/Intake and Output Vital Signs (last 24 hours): Temp Pulse Resp BP Pulse Ox 100 F H 92 H 20 159/88 H 95 07/03/16 08:05 07/03/16 11:16 07/03/16 08:05 07/03/16 11:16 07/03/16 08:05 Intake and Output: 07/03/16 07/03/16 06:59 18:59 Intake Total 1920 Output Total 4425 Balance -2505 - Medications Medications: Current Medications Acetaminophen (Tylenol 325mg Tab) 650 mg PO Q8 PRN PRN Reason: Fever >100.4 F Last Admin: 07/03/16 11:26 Dose: 650 mg Albuterol/Ipratropium (Duoneb 3 Mg/0.5 Mg (3 Ml) Ud) 3 ml IH Q2H PRN PRN Reason: Shortness of Breath Last Admin: 06/23/16 23:50 Dose: 3 ml Albuterol/Ipratropium (Duoneb 3 Mg/0.5 Mg (3 Ml) Ud) 3 ml IH [id number] [facility] Last Admin: 07/03/16 14:24 Dose: Not Given Amlodipine Besylate (Norvasc) 10 mg PO DAILY [facility] Last Admin: 07/03/16 11:16 Dose: 10 mg Clonidine HCl (Catapres) 0.1 mg PO TID PRN PRN Reason: Systolic Blood Pressure Last Admin: 06/26/16 16:25 Dose: 0.1 mg Emollient Ointment (Vaseline Oint) 5 gm TOP PRN LYN Ferrous Sulfate (Feosol Liq) 300 mg PO TID [facility] Last Admin: 07/03/16 14:49 Dose: 300 mg Guaifenesin (Robitussin) 100 mg PO Q4H PRN PRN Reason: Cough Last Admin: 07/03/16 11:26 Dose: 100 mg Nafcillin Sodium 2 gm/ Sodium (Chloride) 100 mls @ 100 mls/hr IVPB Q6 [facility] PRN Reason: Protocol Last Admin: 07/03/16 12:34 Dose: 100 mls/hr Sodium Chloride (Sodium Chloride 0.9%) 1,000 mls @ 75 mls/hr IV .[id number] [facility] Last Admin: 07/01/16 13:10 Dose: 75 mls/hr Fluconazole (Diflucan Iv 200 Mg/100 Ml Ns) 100 mls @ 100 mls/hr IVPB DAILY [facility] PRN Reason: Protocol Last Admin: 07/03/16 11:14 Dose: 100 mls/hr Ibuprofen (Motrin Tab) 600 mg PO Q8 PRN PRN Reason: Fever >100.4 F Last Admin: 06/27/16 23:32 Dose: 600 mg Insulin Detemir (Levemir) 6 unit SC HS [facility] Last Admin: 07/02/16 22:31 Dose: 6 unit Insulin Human Lispro (Humalog Low) 0 units SC ACHS [facility] PRN Reason: Protocol Last Admin: 07/03/16 11:30 Dose: Not Given Linezolid (Zyvox) 600 mg PO BID [facility] PRN Reason: Protocol Last Admin: 07/03/16 11:19 Dose: 600 mg Lisinopril (Zestril) 30 mg PO DAILY [facility] Last Admin: 07/03/16 11:16 Dose: 30 mg Metformin HCl (Glucophage) 500 mg PO BID [facility] Last Admin: 07/03/16 11:15 Dose: 500 mg Multi-Ingredient Cream (Hydrocerin Cream) 1 ea TOP DAILY [facility] Last Admin: 07/03/16 11:16 Dose: Not Given Pantoprazole Sodium (Protonix Ec Tab) 40 mg PO ACB [facility] Last Admin: 07/03/16 08:37 Dose: 40 mg - Labs Labs: 07/03/16 07:00 07/03/16 07:00 PT 10.7 Seconds (9.9-11.8) 06/19/16 18:15 INR 0.99 (0.93-1.08) 06/19/16 18:15 APTT 30.8 Seconds (23.7-30.8) 06/19/16 18:15 - Constitutional Appears: Non-toxic, No Acute Distress, Chronically Ill - Head Exam Head Exam: ATRAUMATIC, NORMOCEPHALIC - Eye Exam Eye Exam: EOMI, PERRL Pupil Exam: NORMAL ACCOMODATION, PERRL - ENT Exam ENT Exam: Mucous Membranes Moist, Normal External Ear Exam, TM's Normal Bilaterally - Neck Exam Neck Exam: Full ROM, Normal Inspection - Respiratory Exam Respiratory Exam: Decreased Breath Sounds, NORMAL BREATHING PATTERN. absent: Rales, Rhonchi, Wheezes - Cardiovascular Exam Cardiovascular Exam: REGULAR RHYTHM, RRR, +S1, +S2 - GI/Abdominal Exam GI & Abdominal Exam: Soft, Normal Bowel Sounds. absent: Distended, Tenderness - Extremities Exam Extremities Exam: Full ROM, Normal Inspection - Neurological Exam Neurological Exam: Alert, Awake, CN II-XII Intact, Oriented x3 - Psychiatric Exam Psychiatric exam: Normal Affect, Normal Mood - Skin Skin Exam: Intact, Normal Color Assessment and Plan - Assessment and Plan (Free Text) Assessment: 61 yo male presenting with Uncontrolled DM and DKA. Incidental finding of pneumonic picture with a possibility for TB. The patient is under isolation for TB. Risks for TB appear to be low. The patient for acid-fast testing of the sputum x 3. Cannot rule out ALISON, fungal, or severe bacterial infections such as Staph Aureus or Strep Pneumonia. He is being treated for his DKA. On Vancomycin and Zosyn. gram positive cocci in blood cultures. May need to consider Teflaro instead to get better concentrations in the lung for MRSA. Supportive care. AFB x 3 negative. Multiple blood cultures with gram positive cocci. FISH indicating Staph Aureus. On Vancomycin and Zosyn currently. Would obtain Quantiferon for reference point... a positive Quantiferon would not impact management of the case at this time. This test would only indicate patient exposure during his lifetime. Would obtain echocardiogram as well. MSSA in multiple cultures. TTE does not show vegetations. The patient appears to be improving. Switched from Zosyn to Nafcillin during this hospitalization. Persistent cough. X-ray of chest and CT Abd/Pel showing worsening left sided infiltrates. CT of the Chest is pending. Switch Vancomycin to Zyvox on Wednesday. On Zyvox and Nafcillin currently. Planned for JANEL Wednesday (done). Persistent fevers and cough. Cannot rule out malignancy as part of the differential. Await official results of the JANEL - preliminary report is no vegetations. Patient with yeast growth on one blood culture. Awaiting identification of yeast. Started on Diflucan 200mg IV daily for now. Patient with temperature up to 100.0 F last night. Discharge postphoned for one day. Thank you for allowing me to participate in the care of this patient, we will follow with you.
[2016-07-03] MEDS: Insulin Detemir 100 units/ml Vial (Levemir) SC SCH (22:16)
[2016-07-04] MEDS: Albuterol-Ipratrop 3 mg / 0.5 (3 ml) UD IH SCH ×3 (01:34→21:00)
[2016-07-04] MEDS: Nafcillin 2 GM in Sodium Chloride 0.9% 100 ML IVPB SCH ×4 (02:47→19:14)
[2016-07-04] MEDS: guaiFENesin 100 mg/5 ml Syrup UD PO PRN ×2 (04:52→10:15)
[2016-07-04] MEDS: Sodium Chloride 0.9% 1,000 ML IV SCH ×2 (04:59→05:00)
[2016-07-04] MEDS: Insulin Lispro (humaLOG) LOW Coverage SC SCH ×4 (08:20→22:06)
[2016-07-04 08:22] LABS: ADD MANUAL DIFF? NO
[2016-07-04 08:29] LABS: BASO # 0.04 K/mm3 (0.0-2.0); BASO % 0.3 % (0.0-3.0); EOS % 0.3 % (1.5-5.0); GRAN # 8.95 (1.4-6.5); GRAN % 76.8 % (50.0-68.0); HEMATOCRIT 27.4 % (42.0-52.0); LYMPH # 1.9 (1.2-3.4); LYMPH % 16.1 % (22.0-35.0); MEAN CELL VOLUME 87.5 fL (80.0-105.0); MEAN CORPUSCULAR HEMOGLOBIN 27.2 pg (25.0-35.0); MEAN PLATELET VOLUME 10.8 fl (7.0-11.0); MONO # 0.8 (0.1-0.6); MONO % 6.5 % (1.0-6.0); PLATELET COUNT 398 10^3/uL (120.0-450.0); RED CELL DISTRIBUTION WIDTH 15.2 % (11.5-14.5); WHITE BLOOD COUNT 11.7 10^3/ul (4.5-11.0)
[2016-07-04 08:45] LABS: ALB/GLOB RATIO 0.7 (1.1-1.8); ALKALINE PHOSPHATASE 73 U/L (38-133); ALT/SGPT 33 U/L (7-56); AST/SGOT 19 U/L (15-59); BILIRUBIN,TOTAL 0.7 mg/dL (0.2-1.3); BLOOD UREA NITROGEN 5 mg/dL (7-21); CALCIUM 8.2 mg/dL (8.4-10.5); CARBON DIOXIDE 28 mmol/L (21-33); CHLORIDE 104 mmol/L (95-110); GFR AFRICAN-AMERICAN > 60; GLUCOSE,RANDOM 125 mg/dL (70-110); POTASSIUM 4.1 mmol/L (3.6-5.0); SODIUM 138 mmol/L (132-148); TOTAL PROTEIN 6.7 g/dL (5.8-8.3)
[2016-07-04] MEDS: Pantoprazole 40 mg EC Tab PO SCH (08:47)
--- NOTE | 2016-07-04 09:38 | PN ---
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 He has been tapered do wn on his insulin regimen, as his clinical condition has improved accordingly. His latest glucose le vels have ranged from 116 - 141 mg/dL. His latest chemistries include a BUN of 5, sodium 138, potass ium 4.1, chloride 104, CO2 28, glucose 125, and creatinine 1.2. So, at this time, we will continue the low-dose basal insulin given as Levemir as 6 units subQ at bed time daily as ordered. He is also on metformin given as 500 mg b.i.d. as given. We will continue th e low-dose correction scale using regular insulin as ordered. We will obtain serial chemistries and supplement accordingly as needed. We will follow. Sherri Hurst MD cc: [id number] TT: 07/04/2016 09:37:54 Confirmation # [id number] Dictation # [id number]
[2016-07-04] MEDS: Ferrous Sulfate 300 mg/5 mL Liq UD PO SCH ×3 (10:05→18:05)
[2016-07-04] MEDS: Hydrocerin(120 gm) TOP SCH (10:13)
[2016-07-04] MEDS: Fluconazole IV 200mg/100 ml NS 100 ML IVPB SCH (10:13)
--- NOTE | 2016-07-04 11:42 | CP.PCM.PN ---
<Deann Mendez - Last Filed: 07/04/16 11:33> Subjective - Date & Time of Evaluation Date of Evaluation: 07/04/16 Time of Evaluation: 11:33 - Subjective Subjective: HOSPITLIATS PROGRESS NOTE Pt is seen and examined at bedside. Patient had fever this morning of 101.2. He is still complaining fo productive cough. He also complains of right sided chest pain with coughing. Denies having any abd pain, SOB, N/V/D/C, urinary symptoms. Objective - Vital Signs/Intake and Output Vital Signs (last 24 hours): Temp Pulse Resp BP Pulse Ox 101.2 F H 97 H 20 170/87 H 98 07/04/16 07:30 07/04/16 10:06 07/04/16 07:30 07/04/16 10:14 07/04/16 07:30 Intake and Output: 07/04/16 07/04/16 06:59 18:59 Intake Total 780 Output Total 1700 Balance -920 - Medications Medications: Current Medications Acetaminophen (Tylenol 325mg Tab) 650 mg PO Q8 PRN PRN Reason: Fever >100.4 F Last Admin: 07/04/16 04:52 Dose: 650 mg Albuterol/Ipratropium (Duoneb 3 Mg/0.5 Mg (3 Ml) Ud) 3 ml IH Q2H PRN PRN Reason: Shortness of Breath Last Admin: 06/23/16 23:50 Dose: 3 ml Albuterol/Ipratropium (Duoneb 3 Mg/0.5 Mg (3 Ml) Ud) 3 ml IH [id number] [facility] Last Admin: 07/04/16 09:08 Dose: Not Given Amlodipine Besylate (Norvasc) 10 mg PO DAILY [facility] Last Admin: 07/04/16 10:14 Dose: 10 mg Benzonatate (Tessalon Perles) 100 mg PO TID [facility] Clonidine HCl (Catapres) 0.1 mg PO TID PRN PRN Reason: Systolic Blood Pressure Last Admin: 06/26/16 16:25 Dose: 0.1 mg Emollient Ointment (Vaseline Oint) 5 gm TOP PRN [facility] Ferrous Sulfate (Feosol Liq) 300 mg PO TID [facility] Last Admin: 07/04/16 10:05 Dose: 300 mg Nafcillin Sodium 2 gm/ Sodium (Chloride) 100 mls @ 100 mls/hr IVPB Q6 [facility] PRN Reason: Protocol Last Admin: 07/04/16 04:57 Dose: 100 mls/hr Sodium Chloride (Sodium Chloride 0.9%) 1,000 mls @ 75 mls/hr IV .[id number] [facility] Last Admin: 07/04/16 05:00 Dose: 75 mls/hr Fluconazole (Diflucan Iv 200 Mg/100 Ml Ns) 100 mls @ 100 mls/hr IVPB DAILY [facility] PRN Reason: Protocol Last Admin: 07/04/16 10:13 Dose: 100 mls/hr Ibuprofen (Motrin Tab) 600 mg PO Q8 [facility] Insulin Detemir (Levemir) 6 unit SC HS [facility] Last Admin: 07/03/16 22:16 Dose: Not Given Insulin Human Lispro (Humalog Low) 0 units SC ACHS [facility] PRN Reason: Protocol Last Admin: 07/04/16 08:20 Dose: Not Given Linezolid (Zyvox) 600 mg PO BID [facility] PRN Reason: Protocol Last Admin: 07/03/16 18:30 Dose: 600 mg Lisinopril (Zestril) 30 mg PO DAILY [facility] Last Admin: 07/04/16 10:06 Dose: 30 mg Metformin HCl (Glucophage) 500 mg PO BID [facility] Last Admin: 07/04/16 10:06 Dose: 500 mg Multi-Ingredient Cream (Hydrocerin Cream) 1 ea TOP DAILY [facility] Last Admin: 07/04/16 10:13 Dose: 1 applic Pantoprazole Sodium (Protonix Ec Tab) 40 mg PO ACB [facility] Last Admin: 07/04/16 08:47 Dose: 40 mg - Labs Labs: 07/04/16 07:00 07/04/16 07:00 PT 10.7 Seconds (9.9-11.8) 06/19/16 18:15 INR 0.99 (0.93-1.08) 06/19/16 18:15 APTT 30.8 Seconds (23.7-30.8) 06/19/16 18:15 - Constitutional Appears: Non-toxic - Head Exam Head Exam: ATRAUMATIC - Eye Exam Eye Exam: EOMI - ENT Exam ENT Exam: Mucous Membranes Moist - Respiratory Exam Respiratory Exam: Clear to Ausculation Bilateral. absent: Rales, Rhonchi, Wheezes - Cardiovascular Exam Cardiovascular Exam: REGULAR RHYTHM, +S1, +S2. absent: Gallop, Rubs, Murmur - GI/Abdominal Exam GI & Abdominal Exam: Soft, Normal Bowel Sounds. absent: Distended, Firm, Guarding, Rigid, Tenderness - Extremities Exam Extremities Exam: absent: Pedal Edema, Tenderness - Neurological Exam Neurological Exam: Alert, Awake, Oriented x3 - Psychiatric Exam Psychiatric exam: Normal Affect, Normal Mood - Skin Skin Exam: Dry, Intact, Normal Color, Warm Assessment and Plan - Assessment and Plan (Free Text) Assessment: The patient is a 61 year old man with history of HTN and NIDDM who is being admitted to the ICU for DKA, hemoptysis and sepsis 2/2 PNA. Plan: 1. Sepsis 2/2 Pneumonia: improving, decreased rhonchi - Repeat blood cultures sent this morning. Motrin and tylenol alternating for temp. Tesslon perls -empiric IV antibiotics -ID consult Dr. Hankins - will follow ID recs -acid-fast testing of the sputum x 4 negative -MSSA per cultures 06/19, 06/21, 06/22 -Cultures from 06/24 show no growth after 5 days -Cultures from 06/27 show yeast species -On Diflucan 200mg IV daily -Nafcilln 2gm -Zyvox for better lung penetration. -Nafcillin -On D/C pt. to start the following: -Augmentin 875 PO BID x10 days -Zyvox 600mg PO BID x 10 days -Diflucan 200mg PO daily x 14 days Ophtho Consult - Dr. Schaffer - help appreciated -pt. to follow up with after d/c for complete eye exam. Cardiac Consult - Dr. Torres - help appreciated -ECHO- please see full report -LV normal size and function -mild concentric LV hypertrophy -no report of vegetations -JANEL did not show signs of vegetations. -CT Chest/Abdomen/Pelvis 06/20 - please see full report -shows mutifocal PNA w/ Tree/ bed changes. 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 -CT Chest with IV contrast 06/26 - please see full report -Multiple areas of consolidation are seen in both lungs, no sig zacarias from previous study -CT Abd/Pelvis with PO contrast - please see full report -worsening BL lower lobe infiltrates -no evidence of acute changes/abscess in report -CT Lumbosacral spine with IV contrast - please see full report -no evidence of acute changes/abscess in report 2. Acute Hemoptysis: resolved -ddx: TB vs malignancy -ruled out TB with three negative sets of sputum AFB samples -avoid anticoagulation 3. Diabetic Ketoacidosis (without coma) - Resolved -HgA1c 16.9 -Endo consult - Dr. Hurst -change to ISS -Levemir 24u SC HS -Humalog 14u AC -Lispro Low SS -Diabetic Diet -Diabetic Education 4. Acute Kidney Injury: resolved -likely pre-renal etiology due to intravascular depletion 5. Poorly Controlled Hypertension: resolving -due to medication non-compliance -Norvasc 10mg po daily -Clonidine 0.1mg po TID PRN SBP>165 -Lisinopril 30mg PO daily 6. GI Bleed/Anemia -complaint of black stools -Stool cultures are negative -Hgb is downtrending. Will continue to monitor. Transfusion below 7 hgb -possibly 2/2 to aggressive fluids -Fe studies -low Fe, Fe%, TIBC -added Ferrous sulfate TID DVT PPx: Heparin SQ tid GI PPx: Protonix Case is discussed with attending, Dr. Olson <Ashley Olson - Last Filed: 07/04/16 14:24> Objective - Vital Signs/Intake and Output Vital Signs (last 24 hours): Temp Pulse Resp BP Pulse Ox 101.2 F H 97 H 20 170/87 H 98 07/04/16 07:30 07/04/16 10:06 07/04/16 07:30 07/04/16 10:14 07/04/16 07:30 Intake and Output: 07/04/16 07/04/16 06:59 18:59 Intake Total 780 Output Total 1700 Balance -920 - Medications Medications: Current Medications Acetaminophen (Tylenol 325mg Tab) 650 mg PO Q8 PRN PRN Reason: Fever >100.4 F Last Admin: 07/04/16 04:52 Dose: 650 mg Albuterol/Ipratropium (Duoneb 3 Mg/0.5 Mg (3 Ml) Ud) 3 ml IH Q2H PRN PRN Reason: Shortness of Breath Last Admin: 06/23/16 23:50 Dose: 3 ml Albuterol/Ipratropium (Duoneb 3 Mg/0.5 Mg (3 Ml) Ud) 3 ml IH [id number] [facility] Last Admin: 07/04/16 09:08 Dose: Not Given Amlodipine Besylate (Norvasc) 10 mg PO DAILY [facility] Last Admin: 07/04/16 10:14 Dose: 10 mg Benzonatate (Tessalon Perles) 100 mg PO TID [facility] Last Admin: 07/04/16 13:15 Dose: 100 mg Clonidine HCl (Catapres) 0.1 mg PO TID PRN PRN Reason: Systolic Blood Pressure Last Admin: 06/26/16 16:25 Dose: 0.1 mg Emollient Ointment (Vaseline Oint) 5 gm TOP PRN [facility] Ferrous Sulfate (Feosol Liq) 300 mg PO TID [facility] Last Admin: 07/04/16 13:15 Dose: 300 mg Nafcillin Sodium 2 gm/ Sodium (Chloride) 100 mls @ 100 mls/hr IVPB Q6 [facility] PRN Reason: Protocol Last Admin: 07/04/16 13:16 Dose: 100 mls/hr Sodium Chloride (Sodium Chloride 0.9%) 1,000 mls @ 75 mls/hr IV .[id number] [facility] Last Admin: 07/04/16 05:00 Dose: 75 mls/hr Fluconazole (Diflucan Iv 200 Mg/100 Ml Ns) 100 mls @ 100 mls/hr IVPB DAILY [facility] PRN Reason: Protocol Last Admin: 07/04/16 10:13 Dose: 100 mls/hr Ibuprofen (Motrin Tab) 600 mg PO Q8 [facility] Last Admin: 07/04/16 13:15 Dose: 600 mg Insulin Detemir (Levemir) 6 unit SC HS [facility] Last Admin: 07/03/16 22:16 Dose: Not Given Insulin Human Lispro (Humalog Low) 0 units SC ACHS [facility] PRN Reason: Protocol Last Admin: 07/04/16 11:30 Dose: Not Given Linezolid (Zyvox) 600 mg PO BID [facility] PRN Reason: Protocol Last Admin: 07/03/16 18:30 Dose: 600 mg Lisinopril (Zestril) 30 mg PO DAILY [facility] Last Admin: 07/04/16 10:06 Dose: 30 mg Metformin HCl (Glucophage) 500 mg PO BID [facility] Last Admin: 07/04/16 10:06 Dose: 500 mg Multi-Ingredient Cream (Hydrocerin Cream) 1 ea TOP DAILY [facility] Last Admin: 07/04/16 10:13 Dose: 1 applic Pantoprazole Sodium (Protonix Ec Tab) 40 mg PO ACB [facility] Last Admin: 07/04/16 08:47 Dose: 40 mg - Labs Labs: 07/04/16 07:00 07/04/16 07:00 PT 10.7 Seconds (9.9-11.8) 06/19/16 18:15 INR 0.99 (0.93-1.08) 06/19/16 18:15 APTT 30.8 Seconds (23.7-30.8) 06/19/16 18:15 Attending/Attestation - Attestation I have personally seen and examined this patient.: Yes I have fully participated in the care of the patient.: Yes I have reviewed all pertinent clinical information, including history, physical exam and plan: Yes Notes (Text): Patient seen and examined with resident. Agree with the above note with following additions/ exceptions: This is a 61 year old man with history of HTN and NIDDM who presented with generalized weakness, polydysia, polyuria, hemoptysis, cough with greenish/ brown colored sputum, intermittent confusion and found to have DKA, hemoptysis and sepsis due to a multifocal pneumonia. Patient was also found to have MSSA bacteremia. He has been having fever. Repeat blood cultures ordered. CT chest showed multifocal pneumonia/nodular changes. Repeat CT did not show any improvement however patient has clinically been improving. AFB x 3 is negative. TTE showed no vegetations. He is on clindamycin, zyvox and nafcillin. Repeat blood culture from 06/24 are negative so far. Blood culture from 06/27 is growing yeast. Continue Diflucan. JANEL is negative for vegetations. Anemia is multifactorial (anemia of chronic disease and iron was also low). Stool for occult blood negative. No active bleeding noted. Continue iron pills. Dark stools noted. Stool for occult blood negative. Continue Levemir and humalog as per endocrine. Follow up with endocrinology . Diabetic nurse educator evaluation appreciated. Dietary education given. Renal function is stable. BP is high. Will discontinue IVF. Ophthalmology input appreciated. Recommended outpatient opthalmology evaluation. Dr Ashley Olson
--- NOTE | 2016-07-04 17:17 | RAD ---
HISTORY: pneumonia COMPARISON: 07/03/2016 FINDINGS: LUNGS: There is a diffuse alveolar infiltrate in the right lung. This is unchanged PLEURA: No significant pleural effusion identified, no pneumothorax apparent. CARDIOVASCULAR: Normal. OSSEOUS STRUCTURES: No significant abnormalities. VISUALIZED UPPER ABDOMEN: Normal. OTHER FINDINGS: None. IMPRESSION: No change in right-sided pneumonia
--- NOTE | 2016-07-04 17:59 | CP.PCM.PN ---
Subjective - Date & Time of Evaluation Date of Evaluation: 07/04/16 Time of Evaluation: 17:00 - Subjective Subjective: 61 y/o M w/ MSSA PNA w/ productive sputum and fevers overnight. Unclear where the fevers are originating from. No other complaints. Objective - Vital Signs/Intake and Output Vital Signs (last 24 hours): Temp Pulse Resp BP Pulse Ox 98.9 F 94 H 20 140/89 97 07/04/16 15:49 07/04/16 15:49 07/04/16 15:49 07/04/16 15:49 07/04/16 15:49 Intake and Output: 07/04/16 07/04/16 06:59 18:59 Intake Total 780 600 Output Total 1700 2150 Balance -920 -1550 - Medications Medications: Current Medications Acetaminophen (Tylenol 325mg Tab) 650 mg PO Q8 PRN PRN Reason: Fever >100.4 F Last Admin: 07/04/16 04:52 Dose: 650 mg Albuterol/Ipratropium (Duoneb 3 Mg/0.5 Mg (3 Ml) Ud) 3 ml IH Q2H PRN PRN Reason: Shortness of Breath Last Admin: 06/23/16 23:50 Dose: 3 ml Albuterol/Ipratropium (Duoneb 3 Mg/0.5 Mg (3 Ml) Ud) 3 ml IH [id number] [facility] Last Admin: 07/04/16 09:08 Dose: Not Given Amlodipine Besylate (Norvasc) 10 mg PO DAILY [facility] Last Admin: 07/04/16 10:14 Dose: 10 mg Benzonatate (Tessalon Perles) 100 mg PO TID [facility] Last Admin: 07/04/16 13:15 Dose: 100 mg Clonidine HCl (Catapres) 0.1 mg PO TID PRN PRN Reason: Systolic Blood Pressure Last Admin: 06/26/16 16:25 Dose: 0.1 mg Emollient Ointment (Vaseline Oint) 5 gm TOP PRN [facility] Ferrous Sulfate (Feosol Liq) 300 mg PO TID [facility] Last Admin: 07/04/16 13:15 Dose: 300 mg Nafcillin Sodium 2 gm/ Sodium (Chloride) 100 mls @ 100 mls/hr IVPB Q6 [facility] PRN Reason: Protocol Last Admin: 07/04/16 13:16 Dose: 100 mls/hr Fluconazole (Diflucan Iv 200 Mg/100 Ml Ns) 100 mls @ 100 mls/hr IVPB DAILY [facility] PRN Reason: Protocol Last Admin: 07/04/16 10:13 Dose: 100 mls/hr Ibuprofen (Motrin Tab) 600 mg PO Q8 [facility] Last Admin: 07/04/16 13:15 Dose: 600 mg Insulin Detemir (Levemir) 6 unit SC HS [facility] Last Admin: 07/03/16 22:16 Dose: Not Given Insulin Human Lispro (Humalog Low) 0 units SC ACHS [facility] PRN Reason: Protocol Last Admin: 07/04/16 17:20 Dose: Not Given Linezolid (Zyvox) 600 mg PO BID [facility] PRN Reason: Protocol Last Admin: 07/03/16 18:30 Dose: 600 mg Lisinopril (Zestril) 30 mg PO DAILY [facility] Last Admin: 07/04/16 10:06 Dose: 30 mg Metformin HCl (Glucophage) 500 mg PO BID [facility] Last Admin: 07/04/16 10:06 Dose: 500 mg Multi-Ingredient Cream (Hydrocerin Cream) 1 ea TOP DAILY [facility] Last Admin: 07/04/16 10:13 Dose: 1 applic Pantoprazole Sodium (Protonix Ec Tab) 40 mg PO ACB [facility] Last Admin: 07/04/16 08:47 Dose: 40 mg - Labs Labs: 07/04/16 07:00 07/04/16 07:00 PT 10.7 Seconds (9.9-11.8) 06/19/16 18:15 INR 0.99 (0.93-1.08) 06/19/16 18:15 APTT 30.8 Seconds (23.7-30.8) 06/19/16 18:15 Assessment and Plan - Assessment and Plan (Free Text) Assessment: 61 y/o M w/ MSSA PNA On Zyvox and Nafcillin . Fevers continued . Would need repeat cx , sputum and blood cx Would consider repeat CT chest and repeat ECHO. Consider CT spine once again. Remove all hardware or IV lines that are not needed . F/U cx from [facility]. TB screen negative. d/w ID will continue to follow along.
--- NOTE | 2016-07-04 20:18 | CP.PCM.PN ---
Subjective - Date & Time of Evaluation Date of Evaluation: 07/04/16 Time of Evaluation: 17:30 - Subjective Subjective: Infectious Disease Follow Up: July 04, 2016 61 yo male with presentation of 2 days of generalized weakness, polydysia, polyuria, hemoptysis, cough with green-colored sputum, intermittent confusion and some mild SOB. On CT scan, tree in bud formations seen. Patient placed under respiratory isolation for TB workup. The patient has no recent travel history. 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 Prior to that, he worked for a [employer] company for 7 years. Extensive pulmonary findings on CT scan. Case discussed with Dr. Moreno. Culture of blood showing gram positive cocci on multiple cultures with FISH testing showing Staph Aureus. Last Vancomycin level at 13.4. Acid-Fast Bacilli Sputum evaluations x 3 are negative. Multiple cultures with MSSA growth. Patient feeling better overall. Patient still with persistent cough. Imaging studies suggest worsening infiltrate. On Nafcillin and Zyvox. JANEL done on Wednesday. Changed Vancomycin IV to Zyvox for better lung penetration Wednesday. Afebrile today. Cannot rule out malignancy as part of differential. The patient's JANEL did not show any vegetations. Repeat chest X- rays show persistent right lung infiltrates and right pleural effusion. On the whole, the patient is clinically improving. Noted that temperature went up to 101.2 F today. Resend cutures. Objective - Vital Signs/Intake and Output Vital Signs (last 24 hours): Temp Pulse Resp BP Pulse Ox 98.9 F 94 H 20 140/89 97 07/04/16 15:49 07/04/16 15:49 07/04/16 15:49 07/04/16 15:49 07/04/16 15:49 Intake and Output: 07/04/16 07/04/16 06:59 18:59 Intake Total 780 600 Output Total 1700 2150 Balance -920 -1550 - Medications Medications: Current Medications Acetaminophen (Tylenol 325mg Tab) 650 mg PO Q8 PRN PRN Reason: Fever >100.4 F Last Admin: 07/04/16 04:52 Dose: 650 mg Albuterol/Ipratropium (Duoneb 3 Mg/0.5 Mg (3 Ml) Ud) 3 ml IH Q2H PRN PRN Reason: Shortness of Breath Last Admin: 06/23/16 23:50 Dose: 3 ml Albuterol/Ipratropium (Duoneb 3 Mg/0.5 Mg (3 Ml) Ud) 3 ml IH [id number] [facility] Last Admin: 07/04/16 09:08 Dose: Not Given Amlodipine Besylate (Norvasc) 10 mg PO DAILY [facility] Last Admin: 07/04/16 10:14 Dose: 10 mg Benzonatate (Tessalon Perles) 100 mg PO TID [facility] Last Admin: 07/04/16 18:05 Dose: 100 mg Clonidine HCl (Catapres) 0.1 mg PO TID PRN PRN Reason: Systolic Blood Pressure Last Admin: 06/26/16 16:25 Dose: 0.1 mg Emollient Ointment (Vaseline Oint) 5 gm TOP PRN [facility] Ferrous Sulfate (Feosol Liq) 300 mg PO TID [facility] Last Admin: 07/04/16 18:05 Dose: 300 mg Nafcillin Sodium 2 gm/ Sodium (Chloride) 100 mls @ 100 mls/hr IVPB Q6 [facility] PRN Reason: Protocol Last Admin: 07/04/16 13:16 Dose: 100 mls/hr Fluconazole (Diflucan Iv 200 Mg/100 Ml Ns) 100 mls @ 100 mls/hr IVPB DAILY [facility] PRN Reason: Protocol Last Admin: 07/04/16 10:13 Dose: 100 mls/hr Ibuprofen (Motrin Tab) 600 mg PO Q8 [facility] Last Admin: 07/04/16 13:15 Dose: 600 mg Insulin Detemir (Levemir) 6 unit SC HS [facility] Last Admin: 07/03/16 22:16 Dose: Not Given Insulin Human Lispro (Humalog Low) 0 units SC ACHS [facility] PRN Reason: Protocol Last Admin: 07/04/16 17:20 Dose: Not Given Linezolid (Zyvox) 600 mg PO BID [facility] PRN Reason: Protocol Last Admin: 07/04/16 18:05 Dose: 600 mg Lisinopril (Zestril) 30 mg PO DAILY [facility] Last Admin: 07/04/16 10:06 Dose: 30 mg Metformin HCl (Glucophage) 500 mg PO BID [facility] Last Admin: 07/04/16 18:05 Dose: 500 mg Multi-Ingredient Cream (Hydrocerin Cream) 1 ea TOP DAILY [facility] Last Admin: 07/04/16 10:13 Dose: 1 applic Pantoprazole Sodium (Protonix Ec Tab) 40 mg PO ACB [facility] Last Admin: 07/04/16 08:47 Dose: 40 mg - Labs Labs: 07/04/16 07:00 07/04/16 07:00 PT 10.7 Seconds (9.9-11.8) 06/19/16 18:15 INR 0.99 (0.93-1.08) 06/19/16 18:15 APTT 30.8 Seconds (23.7-30.8) 06/19/16 18:15 - Constitutional Appears: Non-toxic, No Acute Distress, Chronically Ill - Head Exam Head Exam: ATRAUMATIC, NORMOCEPHALIC - Eye Exam Eye Exam: EOMI, PERRL Pupil Exam: NORMAL ACCOMODATION, PERRL - ENT Exam ENT Exam: Mucous Membranes Moist, Normal External Ear Exam, TM's Normal Bilaterally - Neck Exam Neck Exam: Full ROM, Normal Inspection - Respiratory Exam Respiratory Exam: Decreased Breath Sounds, NORMAL BREATHING PATTERN. absent: Rales, Rhonchi, Wheezes Additional comments: right lung decreased breath sounds. - Cardiovascular Exam Cardiovascular Exam: REGULAR RHYTHM, RRR, +S1, +S2 - GI/Abdominal Exam GI & Abdominal Exam: Soft, Normal Bowel Sounds. absent: Distended, Tenderness - Extremities Exam Extremities Exam: Full ROM, Normal Inspection - Neurological Exam Neurological Exam: Alert, Awake, CN II-XII Intact, Oriented x3 - Psychiatric Exam Psychiatric exam: Normal Affect, Normal Mood - Skin Skin Exam: Intact, Normal Color Assessment and Plan - Assessment and Plan (Free Text) Assessment: 61 yo male presenting with Uncontrolled DM and DKA. Incidental finding of pneumonic picture with a possibility for TB. The patient is under isolation for TB. Risks for TB appear to be low. The patient for acid-fast testing of the sputum x 3. Cannot rule out ALISON, fungal, or severe bacterial infections such as Staph Aureus or Strep Pneumonia. He is being treated for his DKA. On Vancomycin and Zosyn. gram positive cocci in blood cultures. May need to consider Teflaro instead to get better concentrations in the lung for MRSA. Supportive care. AFB x 3 negative. Multiple blood cultures with gram positive cocci. FISH indicating Staph Aureus. On Vancomycin and Zosyn currently. Would obtain Quantiferon for reference point... a positive Quantiferon would not impact management of the case at this time. This test would only indicate patient exposure during his lifetime. Would obtain echocardiogram as well. MSSA in multiple cultures. TTE does not show vegetations. The patient appears to be improving. Switched from Zosyn to Nafcillin during this hospitalization. Persistent cough. X-ray of chest and CT Abd/Pel showing worsening left sided infiltrates. CT of the Chest is pending. Switch Vancomycin to Zyvox on Wednesday. On Zyvox and Nafcillin currently. Planned for JANEL Wednesday (done). Persistent fevers and cough. Cannot rule out malignancy as part of the differential. Await official results of the JANEL - preliminary report is no vegetations. Patient with yeast growth on one blood culture. Awaiting identification of yeast. Started on Diflucan 200mg IV daily for now. Patient with temperature up to 101.2 F this afternoon. Chest X-ray did not show any changes to right-sided pneumonia. Patient continues to have pain in right lung when coughing. At this point, would repeat cultures. Hold further Motrin doses unless fever reoccurs. Agree with obtaining CT Chest. Will consider advancing antibiotics to Ancef or Zosyn from Nafcillin if fevers persist. Thank you for allowing me to participate in the care of this patient, we will follow with you.
[2016-07-04] MEDS: Insulin Detemir 100 units/ml Vial (Levemir) SC SCH (22:07)
[2016-07-05] MEDS: Nafcillin 2 GM in Sodium Chloride 0.9% 100 ML IVPB SCH ×4 (00:15→23:16)
[2016-07-05] MEDS: Albuterol-Ipratrop 3 mg / 0.5 (3 ml) UD IH SCH ×3 (03:10→13:09)
[2016-07-05 07:23] LABS: ADD MANUAL DIFF? NO
[2016-07-05 07:30] LABS: BASO # 0.02 K/mm3 (0.0-2.0); BASO % 0.2 % (0.0-3.0); EOS # 0.1 (0.0-0.7); EOS % 0.7 % (1.5-5.0); GRAN # 6.23 (1.4-6.5); GRAN % 74.6 % (50.0-68.0); HEMATOCRIT 28.2 % (42.0-52.0); LYMPH # 1.6 (1.2-3.4); LYMPH % 18.6 % (22.0-35.0); MEAN CELL VOLUME 86.8 fL (80.0-105.0); MEAN CORPUSCULAR HEMOGLOBIN 27.7 pg (25.0-35.0); MEAN CORPUSCULAR HGB CONC 31.9 g/dl (31.0-37.0); MEAN PLATELET VOLUME 10.2 fl (7.0-11.0); MONO # 0.5 (0.1-0.6); MONO % 5.9 % (1.0-6.0); PLATELET COUNT 387 10^3/uL (120.0-450.0); WHITE BLOOD COUNT 8.4 10^3/ul (4.5-11.0)
[2016-07-05 07:55] LABS: ALB/GLOB RATIO 0.7 (1.1-1.8); ALKALINE PHOSPHATASE 72 U/L (38-133); ALT/SGPT 25 U/L (7-56); AST/SGOT 16 U/L (15-59); BILIRUBIN,TOTAL 0.9 mg/dL (0.2-1.3); BLOOD UREA NITROGEN 9 mg/dL (7-21); CALCIUM 8.3 mg/dL (8.4-10.5); CARBON DIOXIDE 28 mmol/L (21-33); CHLORIDE 103 mmol/L (98-107); GFR AFRICAN-AMERICAN > 60; GLUCOSE,RANDOM 104 mg/dL (70-110); POTASSIUM 4.1 mmol/L (3.6-5.0); SODIUM 137 mmol/L (132-148); TOTAL PROTEIN 7.2 g/dL (5.8-8.3)
[2016-07-05] MEDS: Insulin Lispro (humaLOG) LOW Coverage SC SCH ×4 (08:26→22:19)
[2016-07-05] MEDS: Pantoprazole 40 mg EC Tab PO SCH (08:28)
[2016-07-05] MEDS: Ferrous Sulfate 300 mg/5 mL Liq UD PO SCH ×3 (10:03→18:33)
[2016-07-05] MEDS: Fluconazole IV 200mg/100 ml NS 100 ML IVPB SCH (10:29)
--- NOTE | 2016-07-05 11:23 | PN ---
DATE: 07/05/2016 ROOM: 570 This is a 61-year-old male with recent uncontrolled type 2 insulin-requiring diabetes, presenting her e with diabetic ketoacidosis and dehydration and has since then improved clinically and metabolically with the recent basal and bolus insulin regimen as given. He has since then been taken off the pran dial Humalog given 3 times a day as noted because of remarkable metabolic response thereof. His latest chemistry showed a BUN of 9, sodium 137, potassium 4.1, chloride 103, CO2 28, glucose 104 and creatinine 1.1. His glucose levels have ranged from 114-136 mg/dL. So at this time, because of the normal fasting glucose levels, we will actually discontinue his basal insulin given as Levemir at 6 units subQ at bedtime daily as ordered. We will continue the oral hyp oglycemic drug therapy given as metformin at 500 mg b.i.d. and we will consider the addition of anoth er oral hypoglycemic therapy if hyperglycemic levels supervene at this time. We will obtain serial c hemistries and supplement accordingly as needed. We will follow. Sherri Hurst MD cc: [id number] TT: 07/05/2016 11:22:18 Confirmation # [id number] Dictation # [id number] en
[2016-07-05] MEDS ORDERED: Iohexol 350 MG/100 ML VIAL ONE (12:03)
--- NOTE | 2016-07-05 13:12 | CT ---
PROCEDURE: CT Chest with contrast HISTORY: Pneumonia, persistent fevers COMPARISON: 06/26/2016 TECHNIQUE: Contiguous axial images were obtained through the chest with intravenous contrast enhancement. Sagittal and coronal reconstructions were performed. IV contrast: 100 cc of Omni 350 Radiation dose (DLP): 502 mGy-cm. This CT exam was performed using one or more of the following dose reduction techniques: Automated exposure control, adjustment of the mA and/or kV according to patient size, and/or use of iterative reconstruction technique. FINDINGS: LUNGS: Multi focal areas of consolidation are seen similar to the previous exam showing no significant change. Findings consistent with multi focal pneumonia. MEDIASTINUM: Unremarkable thoracic aorta. No aneurysm or dissection. Normal sized heart. Main pulmonary artery unremarkable. No vascular congestion. No lymphadenopathy. PLEURA: Bilateral pleural effusions right greater than left. Pleural effusions have increased BONES: No fracture. No destructive lesion. UPPER ABDOMEN: Grossly unremarkable. OTHER FINDINGS: None. IMPRESSION: Multi focal areas of consolidation consistent with multi focal pneumonia, possible metastatic disease. No significant change from prior study Increasing bilateral pleural effusions right greater than left.
--- NOTE | 2016-07-05 13:52 | CP.PCM.PN ---
Subjective - Date & Time of Evaluation Date of Evaluation: 07/05/16 Time of Evaluation: 13:00 - Subjective Subjective: 61 y/o M w/ Multifocal PNA Continues to have fevers in the past 24 hrs. Productive sputum continues . Pt is clinically the same and is able to walk around the medical floors. Objective - Vital Signs/Intake and Output Vital Signs (last 24 hours): Temp Pulse Resp BP Pulse Ox 98.3 F 83 20 154/87 H 98 07/05/16 07:30 07/05/16 10:27 07/05/16 07:30 07/05/16 10:27 07/05/16 07:30 Intake and Output: 07/05/16 07/05/16 06:59 18:59 Intake Total 440 Output Total 1000 Balance -560 - Medications Medications: Current Medications Acetaminophen (Tylenol 325mg Tab) 650 mg PO Q8 PRN PRN Reason: Fever >100.4 F Last Admin: 07/04/16 04:52 Dose: 650 mg Albuterol/Ipratropium (Duoneb 3 Mg/0.5 Mg (3 Ml) Ud) 3 ml IH Q2H PRN PRN Reason: Shortness of Breath Last Admin: 06/23/16 23:50 Dose: 3 ml Albuterol/Ipratropium (Duoneb 3 Mg/0.5 Mg (3 Ml) Ud) 3 ml IH [id number] [facility] Last Admin: 07/05/16 13:09 Dose: Not Given Amlodipine Besylate (Norvasc) 10 mg PO DAILY [facility] Last Admin: 07/05/16 10:25 Dose: 10 mg Benzonatate (Tessalon Perles) 100 mg PO TID [facility] Last Admin: 07/05/16 10:18 Dose: Not Given Clonidine HCl (Catapres) 0.1 mg PO TID PRN PRN Reason: Systolic Blood Pressure Last Admin: 06/26/16 16:25 Dose: 0.1 mg Emollient Ointment (Vaseline Oint) 5 gm TOP PRN [facility] Ferrous Sulfate (Feosol Liq) 300 mg PO TID [facility] Last Admin: 07/04/16 18:05 Dose: 300 mg Nafcillin Sodium 2 gm/ Sodium (Chloride) 100 mls @ 100 mls/hr IVPB Q6 LYN PRN Reason: Protocol Last Admin: 07/05/16 05:33 Dose: 100 mls/hr Fluconazole (Diflucan Iv 200 Mg/100 Ml Ns) 100 mls @ 100 mls/hr IVPB DAILY [facility] PRN Reason: Protocol Last Admin: 07/05/16 10:29 Dose: 100 mls/hr Insulin Human Lispro (Humalog Low) 0 units SC ACHS [facility] PRN Reason: Protocol Last Admin: 07/05/16 08:26 Dose: Not Given Linezolid (Zyvox) 600 mg PO BID [facility] PRN Reason: Protocol Last Admin: 07/04/16 18:05 Dose: 600 mg Lisinopril (Zestril) 30 mg PO DAILY [facility] Last Admin: 07/05/16 10:27 Dose: 30 mg Metformin HCl (Glucophage) 500 mg PO BID [facility] Last Admin: 07/05/16 10:27 Dose: 500 mg Multi-Ingredient Cream (Hydrocerin Cream) 1 ea TOP DAILY [facility] Last Admin: 07/04/16 10:13 Dose: 1 applic Pantoprazole Sodium (Protonix Ec Tab) 40 mg PO ACB [facility] Last Admin: 07/05/16 08:28 Dose: 40 mg - Labs Labs: 07/05/16 07:00 07/05/16 07:00 PT 10.7 Seconds (9.9-11.8) 06/19/16 18:15 INR 0.99 (0.93-1.08) 06/19/16 18:15 APTT 30.8 Seconds (23.7-30.8) 06/19/16 18:15 - Constitutional Appears: Well - Head Exam Head Exam: ATRAUMATIC - Eye Exam Eye Exam: EOMI, Normal appearance Pupil Exam: NORMAL ACCOMODATION, PERRL - ENT Exam ENT Exam: Normal Exam - Neck Exam Neck Exam: Full ROM - Respiratory Exam Respiratory Exam: Decreased Breath Sounds, NORMAL BREATHING PATTERN (b/l bases decreased breath sounds) - Cardiovascular Exam Cardiovascular Exam: REGULAR RHYTHM - GI/Abdominal Exam GI & Abdominal Exam: Normal Bowel Sounds - Extremities Exam Extremities Exam: Normal Inspection Assessment and Plan - Assessment and Plan (Free Text) Assessment: 61 y/o M w/ Multifocal PNA On Zyvox and Nafcillin w/ fevers every other day. Productive sputum continues. Would get another sputum sample. Also CT chest reviewed , which shows Increased R pleural effusion w/ multifocal infiltrates. Would be interested in sending the pleural fluid for cell count/ Cytology . Thoracentesis to be scheduled. In addition Bronchoscopy could also be beneficial to examine the airways and send a BAL for all cx including fungal etc. we will follow along and update w/ all consultants.
[2016-07-05] MEDS: Hydrocerin(120 gm) TOP SCH (14:03)
--- NOTE | 2016-07-05 14:58 | CP.PCM.PN ---
<OnealAaron - Last Filed: 07/05/16 14:53> Subjective - Date & Time of Evaluation Date of Evaluation: 07/05/16 Time of Evaluation: 08:00 - Subjective Subjective: PGY1 Hospitalist Note 61 y/o M w/ MSSA PNA w/ productive sputum without fevers overnight. Unclear where the fevers are originating from. Pt. states his SOB is improving with no other complaints. Denies having any abd pain, N/V/D/C, urinary symptoms. Objective - Vital Signs/Intake and Output Vital Signs (last 24 hours): Temp Pulse Resp BP Pulse Ox 98.3 F 83 20 154/87 H 98 07/05/16 07:30 07/05/16 10:27 07/05/16 07:30 07/05/16 10:27 07/05/16 07:30 Intake and Output: 07/05/16 07/05/16 06:59 18:59 Intake Total 440 Output Total 1000 Balance -560 - Medications Medications: Current Medications Acetaminophen (Tylenol 325mg Tab) 650 mg PO Q8 PRN PRN Reason: Fever >100.4 F Last Admin: 07/04/16 04:52 Dose: 650 mg Albuterol/Ipratropium (Duoneb 3 Mg/0.5 Mg (3 Ml) Ud) 3 ml IH Q2H PRN PRN Reason: Shortness of Breath Last Admin: 06/23/16 23:50 Dose: 3 ml Albuterol/Ipratropium (Duoneb 3 Mg/0.5 Mg (3 Ml) Ud) 3 ml IH [id number] [facility] Last Admin: 07/05/16 13:09 Dose: Not Given Amlodipine Besylate (Norvasc) 10 mg PO DAILY [facility] Last Admin: 07/05/16 10:25 Dose: 10 mg Benzonatate (Tessalon Perles) 100 mg PO TID [facility] Last Admin: 07/05/16 14:03 Dose: 100 mg Clonidine HCl (Catapres) 0.1 mg PO TID PRN PRN Reason: Systolic Blood Pressure Last Admin: 06/26/16 16:25 Dose: 0.1 mg Emollient Ointment (Vaseline Oint) 5 gm TOP PRN [facility] Ferrous Sulfate (Feosol Liq) 300 mg PO TID [facility] Last Admin: 07/05/16 14:03 Dose: 300 mg Nafcillin Sodium 2 gm/ Sodium (Chloride) 100 mls @ 100 mls/hr IVPB Q6 L[facility] PRN Reason: Protocol Last Admin: 07/05/16 14:04 Dose: 100 mls/hr Fluconazole (Diflucan Iv 200 Mg/100 Ml Ns) 100 mls @ 100 mls/hr IVPB DAILY [facility] PRN Reason: Protocol Last Admin: 07/05/16 10:29 Dose: 100 mls/hr Insulin Human Lispro (Humalog Low) 0 units SC ACHS [facility] PRN Reason: Protocol Last Admin: 07/05/16 08:26 Dose: Not Given Linezolid (Zyvox) 600 mg PO BID [facility] PRN Reason: Protocol Last Admin: 07/05/16 14:03 Dose: 600 mg Lisinopril (Zestril) 30 mg PO DAILY [facility] Last Admin: 07/05/16 10:27 Dose: 30 mg Metformin HCl (Glucophage) 500 mg PO BID [facility] Last Admin: 07/05/16 10:27 Dose: 500 mg Multi-Ingredient Cream (Hydrocerin Cream) 1 ea TOP DAILY [facility] Last Admin: 07/05/16 14:03 Dose: 1 applic Pantoprazole Sodium (Protonix Ec Tab) 40 mg PO ACB [facility] Last Admin: 07/05/16 08:28 Dose: 40 mg - Labs Labs: 07/05/16 07:00 07/05/16 07:00 PT 10.7 Seconds (9.9-11.8) 06/19/16 18:15 INR 0.99 (0.93-1.08) 06/19/16 18:15 APTT 30.8 Seconds (23.7-30.8) 06/19/16 18:15 - Constitutional Appears: Non-toxic, No Acute Distress - Head Exam Head Exam: ATRAUMATIC, NORMOCEPHALIC - Eye Exam Eye Exam: EOMI - ENT Exam ENT Exam: Mucous Membranes Moist - Respiratory Exam Respiratory Exam: Rhonchi, NORMAL BREATHING PATTERN - Cardiovascular Exam Cardiovascular Exam: REGULAR RHYTHM, RRR, +S1, +S2. absent: JVD - GI/Abdominal Exam GI & Abdominal Exam: Soft, Tenderness, Normal Bowel Sounds - Extremities Exam Extremities Exam: absent: Joint Swelling, Pedal Edema - Back Exam Back Exam: tenderness. absent: rash noted - Neurological Exam Neurological Exam: Alert, Awake, Oriented x3 - Psychiatric Exam Psychiatric exam: Normal Affect, Normal Mood - Skin Skin Exam: Dry, Intact, Normal Color, Warm Assessment and Plan - Assessment and Plan (Free Text) Assessment: The patient is a 61 year old man with history of HTN and NIDDM who is being admitted to the ICU for DKA, hemoptysis and sepsis 2/2 PNA. Plan: 1. Sepsis 2/2 Pneumonia: improving, decreased rhonchi - Repeat blood cultures sent this morning. Motrin and tylenol alternating for temp. Tesslon perls -empiric IV antibiotics -ID consult Dr. Hankins - will follow ID recs -acid-fast testing of the sputum x 4 negative -MSSA per cultures 06/19, 06/21, 06/22 -Cultures from 06/27 show yeast species -Cultures from 06/24, , show no growth after 5 days -Cultures from 07/04 show no growth after 24hours -Stool Cultures from 06/29-06/30 show no C.diff Ag/Tox, Salmonella, Shilgella, or Campylobacter -On Diflucan 200mg IV daily -Nafcilln 2gm -Zyvox for better lung penetration. -Nafcillin -On D/C pt. to start the following: -Augmentin 875 PO BID x10 days -Zyvox 600mg PO BID x 10 days -Diflucan 200mg PO daily x 14 days Ophtho Consult - Dr. Schaffer - help appreciated -pt. to follow up with after d/c for complete eye exam -pt. not currently complaining of changes in vision Cardiac Consult - Dr. Torres - help appreciated -ECHO- please see full report -LV normal size and function -mild concentric LV hypertrophy -no report of vegetations -JANEL did not show signs of vegetations. -CT Chest/Abdomen/Pelvis 06/20 - please see full report -shows mutifocal PNA w/ Tree/ bed changes. 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 -CT Chest with IV contrast 06/26 - please see full report -Multiple areas of consolidation are seen in both lungs, no sig zacarias from previous study -CT Abd/Pelvis with PO contrast - please see full report -worsening BL lower lobe infiltrates -no evidence of acute changes/abscess in report -CT Lumbosacral spine with IV contrast - please see full report -no evidence of acute changes/abscess in report Pulm Consult - Dr. Rubio - help appreciated - repeat CT and ECHO 07/05 2. Acute Hemoptysis: resolved -ddx: TB vs malignancy -ruled out TB with three negative sets of sputum AFB samples -avoid anticoagulation 3. Diabetic Ketoacidosis (without coma) resolved - Resolved -HgA1c 16.9 -Endo consult - Dr. Hurst -change to ISS -Levemir 24u SC HS -Humalog 14u AC -Lispro Low SS -Metformin 500mg BID -Diabetic Diet -Diabetic Education 4. Acute Kidney Injury: resolved -likely pre-renal etiology due to intravascular depletion 5. Poorly Controlled Hypertension: resolving -due to medication non-compliance -Norvasc 10mg po daily -Clonidine 0.1mg po TID PRN SBP>165 -Lisinopril 30mg PO daily 6. GI Bleed/Anemia: stable -Hgb stable around 9.0 -complaint of black stools -Stool cultures are negative -Hgb is downtrending. Will continue to monitor. Transfusion below 7 hgb -possibly 2/2 to aggressive fluids -Fe studies -low Fe, Fe%, TIBC -added Ferrous sulfate TID DVT PPx: Heparin SQ tid GI PPx: Protonix Case is discussed with attending, Dr. Olson <Ashley Olson - Last Filed: 07/05/16 15:57> Objective - Vital Signs/Intake and Output Vital Signs (last 24 hours): Temp Pulse Resp BP Pulse Ox 98.3 F 83 20 154/87 H 98 07/05/16 07:30 07/05/16 10:27 07/05/16 07:30 07/05/16 10:27 07/05/16 07:30 Intake and Output: 07/05/16 07/05/16 06:59 18:59 Intake Total 440 900 Output Total 1000 1501 Balance -560 -601 - Medications Medications: Current Medications Acetaminophen (Tylenol 325mg Tab) 650 mg PO Q8 PRN PRN Reason: Fever >100.4 F Last Admin: 07/04/16 04:52 Dose: 650 mg Albuterol/Ipratropium (Duoneb 3 Mg/0.5 Mg (3 Ml) Ud) 3 ml IH Q2H PRN PRN Reason: Shortness of Breath Last Admin: 06/23/16 23:50 Dose: 3 ml Albuterol/Ipratropium (Duoneb 3 Mg/0.5 Mg (3 Ml) Ud) 3 ml IH [id number] [facility] Last Admin: 07/05/16 13:09 Dose: Not Given Amlodipine Besylate (Norvasc) 10 mg PO DAILY [facility] Last Admin: 07/05/16 10:25 Dose: 10 mg Benzonatate (Tessalon Perles) 100 mg PO TID [facility] Last Admin: 07/05/16 14:03 Dose: 100 mg Clonidine HCl (Catapres) 0.1 mg PO TID PRN PRN Reason: Systolic Blood Pressure Last Admin: 06/26/16 16:25 Dose: 0.1 mg Emollient Ointment (Vaseline Oint) 5 gm TOP PRN [facility] Ferrous Sulfate (Feosol Liq) 300 mg PO TID [facility] Last Admin: 07/05/16 14:03 Dose: 300 mg Nafcillin Sodium 2 gm/ Sodium (Chloride) 100 mls @ 100 mls/hr IVPB Q6 [facility] PRN Reason: Protocol Last Admin: 07/05/16 14:04 Dose: 100 mls/hr Fluconazole (Diflucan Iv 200 Mg/100 Ml Ns) 100 mls @ 100 mls/hr IVPB DAILY [facility] PRN Reason: Protocol Last Admin: 07/05/16 10:29 Dose: 100 mls/hr Insulin Human Lispro (Humalog Low) 0 units SC ACHS [facility] PRN Reason: Protocol Last Admin: 07/05/16 08:26 Dose: Not Given Linezolid (Zyvox) 600 mg PO BID [facility] PRN Reason: Protocol Last Admin: 07/05/16 14:03 Dose: 600 mg Lisinopril (Zestril) 30 mg PO DAILY [facility] Last Admin: 07/05/16 10:27 Dose: 30 mg Metformin HCl (Glucophage) 500 mg PO BID [facility] Last Admin: 07/05/16 10:27 Dose: 500 mg Multi-Ingredient Cream (Hydrocerin Cream) 1 ea TOP DAILY [facility] Last Admin: 07/05/16 14:03 Dose: 1 applic Pantoprazole Sodium (Protonix Ec Tab) 40 mg PO ACB [facility] Last Admin: 07/05/16 08:28 Dose: 40 mg - Labs Labs: 07/05/16 07:00 07/05/16 07:00 PT 10.7 Seconds (9.9-11.8) 06/19/16 18:15 INR 0.99 (0.93-1.08) 06/19/16 18:15 APTT 30.8 Seconds (23.7-30.8) 06/19/16 18:15 Attending/Attestation - Attestation I have personally seen and examined this patient.: Yes I have fully participated in the care of the patient.: Yes I have reviewed all pertinent clinical information, including history, physical exam and plan: Yes Notes (Text): Patient seen and examined with resident. Agree with the above note with following additions/ exceptions: This is a 61 year old man with history of HTN and NIDDM who presented with generalized weakness, polydysia, polyuria, hemoptysis, cough with greenish/ brown colored sputum, intermittent confusion and found to have DKA, hemoptysis and sepsis due to a multifocal pneumonia. Patient was also found to have MSSA bacteremia and candidemia. He has been having fevers. Repeat blood cultures ordered. CT chest showed multifocal pneumonia/nodular changes. Repeat CT did not show any improvement however patient has clinically been improving. AFB x 3 is negative. TTE and JANEL showed no vegetations. He is on zyvox and nafcillin. Repeat blood culture from 06/24 are negative so far. Blood culture from 06/27 is growing trav albicans. Continue Diflucan. CT chest was repeated today due to fevers which revealed increased right sided pleural effusion with multifocal infiltrates. Discussed with tool clerk who recommended bronchoscopy and CT guided drainage of right sided pleural effusion. Anemia is multifactorial (anemia of chronic disease and iron was also low). Stool for occult blood negative. No active bleeding noted. Continue iron pills. Patient has been getting Levemir and humalog however recently blood sugars have been very low therefore insulin was discontinued and patient will be started on glucophage as per . Diabetic nurse educator evaluation appreciated. Dietary education given. Renal function is stable. Ophthalmology input appreciated. Recommended outpatient opthalmology evaluation. Dr Ashley Olson
--- NOTE | 2016-07-05 17:26 | CP.PCM.PN ---
Subjective - Date & Time of Evaluation Date of Evaluation: 07/05/16 Time of Evaluation: 16:00 - Subjective Subjective: Infectious Disease Follow Up: July 05, 2016 61 yo male with presentation of 2 days of generalized weakness, polydysia, polyuria, hemoptysis, cough with green-colored sputum, intermittent confusion and some mild SOB. On CT scan, tree in bud formations seen. Patient placed under respiratory isolation for TB workup. The patient has no recent travel history. 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 Prior to that, he worked for a [employer] company for 7 years. Extensive pulmonary findings on CT scan. Case discussed with Dr. Moreno. Culture of blood showing gram positive cocci on multiple cultures with FISH testing showing Staph Aureus. Last Vancomycin level at 13.4. Acid-Fast Bacilli Sputum evaluations x 3 are negative. Multiple cultures with MSSA growth. Patient feeling better overall. Patient still with persistent cough. Imaging studies suggest worsening infiltrate. On Nafcillin and Zyvox. JANEL done on Wednesday. Changed Vancomycin IV to Zyvox for better lung penetration Wednesday. Afebrile today. Cannot rule out malignancy as part of differential. The patient's JANEL did not show any vegetations. Repeat chest X- rays show persistent right lung infiltrates and right pleural effusion. On the whole, the patient is clinically improving. Noted that temperature went up to 101.2 F yesterday. Resend cutures. Clinically no physical changes. The patient has not had improvement in the repeat CT chest. Objective - Vital Signs/Intake and Output Vital Signs (last 24 hours): Temp Pulse Resp BP Pulse Ox 99.7 F H 93 H 20 153/86 H 97 07/05/16 16:00 07/05/16 16:00 07/05/16 16:00 07/05/16 16:00 07/05/16 16:00 Intake and Output: 07/05/16 07/05/16 06:59 18:59 Intake Total 440 900 Output Total 1000 1501 Balance -560 -601 - Medications Medications: Current Medications Acetaminophen (Tylenol 325mg Tab) 650 mg PO Q8 PRN PRN Reason: Fever >100.4 F Last Admin: 07/04/16 04:52 Dose: 650 mg Albuterol/Ipratropium (Duoneb 3 Mg/0.5 Mg (3 Ml) Ud) 3 ml IH Q2H PRN PRN Reason: Shortness of Breath Last Admin: 06/23/16 23:50 Dose: 3 ml Albuterol/Ipratropium (Duoneb 3 Mg/0.5 Mg (3 Ml) Ud) 3 ml IH [id number] [facility] Last Admin: 07/05/16 13:09 Dose: Not Given Amlodipine Besylate (Norvasc) 10 mg PO DAILY [facility] Last Admin: 07/05/16 10:25 Dose: 10 mg Benzonatate (Tessalon Perles) 100 mg PO TID [facility] Last Admin: 07/05/16 14:03 Dose: 100 mg Clonidine HCl (Catapres) 0.1 mg PO TID PRN PRN Reason: Systolic Blood Pressure Last Admin: 06/26/16 16:25 Dose: 0.1 mg Emollient Ointment (Vaseline Oint) 5 gm TOP PRN [facility] Ferrous Sulfate (Feosol Liq) 300 mg PO TID [facility] Last Admin: 07/05/16 14:03 Dose: 300 mg Nafcillin Sodium 2 gm/ Sodium (Chloride) 100 mls @ 100 mls/hr IVPB Q6 [facility] PRN Reason: Protocol Last Admin: 07/05/16 14:04 Dose: 100 mls/hr Fluconazole (Diflucan Iv 200 Mg/100 Ml Ns) 100 mls @ 100 mls/hr IVPB DAILY [facility] PRN Reason: Protocol Last Admin: 07/05/16 10:29 Dose: 100 mls/hr Insulin Human Lispro (Humalog Low) 0 units SC ACHS [facility] PRN Reason: Protocol Last Admin: 07/05/16 08:26 Dose: Not Given Linezolid (Zyvox) 600 mg PO BID [facility] PRN Reason: Protocol Last Admin: 07/05/16 14:03 Dose: 600 mg Lisinopril (Zestril) 30 mg PO DAILY [facility] Last Admin: 07/05/16 10:27 Dose: 30 mg Metformin HCl (Glucophage) 500 mg PO BID [facility] Last Admin: 07/05/16 10:27 Dose: 500 mg Multi-Ingredient Cream (Hydrocerin Cream) 1 ea TOP DAILY [facility] Last Admin: 07/05/16 14:03 Dose: 1 applic Pantoprazole Sodium (Protonix Ec Tab) 40 mg PO ACB [facility] Last Admin: 07/05/16 08:28 Dose: 40 mg - Labs Labs: 07/05/16 07:00 07/05/16 07:00 PT 10.7 Seconds (9.9-11.8) 06/19/16 18:15 INR 0.99 (0.93-1.08) 06/19/16 18:15 APTT 30.8 Seconds (23.7-30.8) 06/19/16 18:15 - Constitutional Appears: Non-toxic, No Acute Distress, Chronically Ill - Head Exam Head Exam: ATRAUMATIC, NORMOCEPHALIC - Eye Exam Eye Exam: EOMI, PERRL Pupil Exam: NORMAL ACCOMODATION, PERRL - ENT Exam ENT Exam: Mucous Membranes Moist, Normal External Ear Exam, TM's Normal Bilaterally - Neck Exam Neck Exam: Full ROM, Normal Inspection - Respiratory Exam Respiratory Exam: Decreased Breath Sounds, NORMAL BREATHING PATTERN. absent: Rales, Rhonchi, Wheezes Additional comments: right lung decreased breath sounds. - Cardiovascular Exam Cardiovascular Exam: REGULAR RHYTHM, RRR, +S1, +S2 - GI/Abdominal Exam GI & Abdominal Exam: Soft, Normal Bowel Sounds. absent: Distended, Tenderness - Extremities Exam Extremities Exam: Full ROM, Normal Inspection - Neurological Exam Neurological Exam: Alert, Awake, CN II-XII Intact, Oriented x3 - Psychiatric Exam Psychiatric exam: Normal Affect, Normal Mood - Skin Skin Exam: Intact, Normal Color Assessment and Plan - Assessment and Plan (Free Text) Assessment: 61 yo male presenting with Uncontrolled DM and DKA. Incidental finding of pneumonic picture with a possibility for TB. The patient is under isolation for TB. Risks for TB appear to be low. The patient for acid-fast testing of the sputum x 3. Cannot rule out ALISON, fungal, or severe bacterial infections such as Staph Aureus or Strep Pneumonia. He is being treated for his DKA. On Vancomycin and Zosyn. gram positive cocci in blood cultures. May need to consider Teflaro instead to get better concentrations in the lung for MRSA. Supportive care. AFB x 3 negative. Multiple blood cultures with gram positive cocci. FISH indicating Staph Aureus. On Vancomycin and Zosyn currently. Would obtain Quantiferon for reference point... a positive Quantiferon would not impact management of the case at this time. This test would only indicate patient exposure during his lifetime. Would obtain echocardiogram as well. MSSA in multiple cultures. TTE does not show vegetations. The patient appears to be improving. Switched from Zosyn to Nafcillin during this hospitalization. Persistent cough. X-ray of chest and CT Abd/Pel showing worsening left sided infiltrates. CT of the Chest is pending. Switch Vancomycin to Zyvox on Wednesday. On Zyvox and Nafcillin currently. Planned for JANEL Wednesday (done). Persistent fevers and cough. Cannot rule out malignancy as part of the differential. Await official results of the JANEL - preliminary report is no vegetations. Patient with yeast growth on one blood culture. Awaiting identification of yeast. Started on Diflucan 200mg IV daily for now. Patient with temperature up to 101.2 F yesterday afternoon. Chest X-ray did not show any changes to right-sided pneumonia. Patient continues to have pain in right lung when coughing. At this point, would repeat cultures. Hold further Motrin doses unless fever reoccurs. Agree with obtaining CT Chest. Will consider advancing antibiotics to Ancef or Zosyn from Nafcillin if fevers persist. Agree with thoracentesis and evaluating for potenital malignancy. The patient did not have fevers today. Thank you for allowing me to participate in the care of this patient, we will follow with you.
[2016-07-06] MEDS: Albuterol-Ipratrop 3 mg / 0.5 (3 ml) UD IH SCH ×2 (01:54→08:00)
[2016-07-06] MEDS: Nafcillin 2 GM in Sodium Chloride 0.9% 100 ML IVPB SCH ×4 (05:52→23:45)
[2016-07-06 07:15] LABS: ADD MANUAL DIFF? NO
[2016-07-06 07:21] LABS: BASO # 0.03 K/mm3 (0.0-2.0); BASO % 0.5 % (0.0-3.0); EOS # 0.1 (0.0-0.7); EOS % 1.1 % (1.5-5.0); GRAN # 3.96 (1.4-6.5); GRAN % 64.1 % (50.0-68.0); HEMATOCRIT 28.4 % (42.0-52.0); LYMPH # 1.6 (1.2-3.4); LYMPH % 26.2 % (22.0-35.0); MEAN CELL VOLUME 86.1 fL (80.0-105.0); MEAN CORPUSCULAR HEMOGLOBIN 27.3 pg (25.0-35.0); MEAN CORPUSCULAR HGB CONC 31.7 g/dl (31.0-37.0); MEAN PLATELET VOLUME 9.7 fl (7.0-11.0); MONO # 0.5 (0.1-0.6); MONO % 8.1 % (1.0-6.0); PLATELET COUNT 372 10^3/uL (120.0-450.0); RED CELL DISTRIBUTION WIDTH 14.8 % (11.5-14.5); WHITE BLOOD COUNT 6.2 10^3/ul (4.5-11.0)
[2016-07-06 07:41] LABS: ALB/GLOB RATIO 0.7 (1.1-1.8); ALKALINE PHOSPHATASE 66 U/L (38-133); ALT/SGPT 24 U/L (7-56); AST/SGOT 20 U/L (15-59); BILIRUBIN,TOTAL 0.8 mg/dL (0.2-1.3); BLOOD UREA NITROGEN 6 mg/dL (7-21); CALCIUM 8.4 mg/dL (8.4-10.5); CARBON DIOXIDE 28 mmol/L (21-33); CHLORIDE 103 mmol/L (98-107); GFR AFRICAN-AMERICAN > 60; GLUCOSE,RANDOM 129 mg/dL (70-110); POTASSIUM 3.7 mmol/L (3.6-5.0); SODIUM 138 mmol/L (132-148); TOTAL PROTEIN 7.3 g/dL (5.8-8.3)
[2016-07-06] MEDS: Pantoprazole 40 mg EC Tab PO SCH (08:22)
[2016-07-06] MEDS: Insulin Lispro (humaLOG) LOW Coverage SC SCH ×4 (08:28→22:10)
[2016-07-06] MEDS: Ferrous Sulfate 300 mg/5 mL Liq UD PO SCH ×3 (09:28→17:25)
[2016-07-06] MEDS: Fluconazole IV 200mg/100 ml NS 100 ML IVPB SCH (09:28)
[2016-07-06] MEDS: Hydrocerin(120 gm) TOP SCH (09:29)
--- NOTE | 2016-07-06 11:02 | CP.PCM.PN ---
<Deann Mendez - Last Filed: 07/06/16 10:54> Subjective - Date & Time of Evaluation Date of Evaluation: 07/06/16 Time of Evaluation: 10:54 - Subjective Subjective: HOSPITALISTS PROGRESS NOTE Pt is seen and examined at bedside. Continues to complain of productive cough. denies having any CP, SOB, abd pain, N/V, fevers or chills. Pt was a febrile overnight. He is tolerating diet. Objective - Vital Signs/Intake and Output Vital Signs (last 24 hours): Temp Pulse Resp BP Pulse Ox 99.1 F 86 20 134/80 97 07/06/16 08:00 07/06/16 09:34 07/06/16 08:00 07/06/16 09:34 07/06/16 08:00 Intake and Output: 07/06/16 07/06/16 06:59 18:59 Intake Total 900 Output Total 2250 Balance -1350 - Medications Medications: Current Medications Acetaminophen (Tylenol 325mg Tab) 650 mg PO Q8 PRN PRN Reason: Fever >100.4 F Last Admin: 07/04/16 04:52 Dose: 650 mg Albuterol/Ipratropium (Duoneb 3 Mg/0.5 Mg (3 Ml) Ud) 3 ml IH Q2H PRN PRN Reason: Shortness of Breath Last Admin: 06/23/16 23:50 Dose: 3 ml Albuterol/Ipratropium (Duoneb 3 Mg/0.5 Mg (3 Ml) Ud) 3 ml IH [id number] [facility] Last Admin: 07/06/16 01:54 Dose: Not Given Amlodipine Besylate (Norvasc) 10 mg PO DAILY [facility] Last Admin: 07/06/16 09:33 Dose: 10 mg Benzonatate (Tessalon Perles) 100 mg PO TID [facility] Last Admin: 07/06/16 09:28 Dose: 100 mg Clonidine HCl (Catapres) 0.1 mg PO TID PRN PRN Reason: Systolic Blood Pressure Last Admin: 06/26/16 16:25 Dose: 0.1 mg Emollient Ointment (Vaseline Oint) 5 gm TOP PRN [facility] Ferrous Sulfate (Feosol Liq) 300 mg PO TID [facility] Last Admin: 07/06/16 09:28 Dose: 300 mg Nafcillin Sodium 2 gm/ Sodium (Chloride) 100 mls @ 100 mls/hr IVPB Q6 [facility] PRN Reason: Protocol Last Admin: 07/06/16 05:52 Dose: 100 mls/hr Fluconazole (Diflucan Iv 200 Mg/100 Ml Ns) 100 mls @ 100 mls/hr IVPB DAILY [facility] PRN Reason: Protocol Last Admin: 07/06/16 09:28 Dose: 100 mls/hr Insulin Human Lispro (Humalog Low) 0 units SC ACHS [facility] PRN Reason: Protocol Last Admin: 07/06/16 08:28 Dose: Not Given Linezolid (Zyvox) 600 mg PO BID [facility] PRN Reason: Protocol Last Admin: 07/06/16 09:28 Dose: 600 mg Lisinopril (Zestril) 30 mg PO DAILY [facility] Last Admin: 07/06/16 09:34 Dose: 30 mg Metformin HCl (Glucophage) 500 mg PO BID [facility] Last Admin: 07/06/16 09:28 Dose: 500 mg Multi-Ingredient Cream (Hydrocerin Cream) 1 ea TOP DAILY [facility] Last Admin: 07/06/16 09:29 Dose: 1 applic Pantoprazole Sodium (Protonix Ec Tab) 40 mg PO ACB [facility] Last Admin: 07/06/16 08:22 Dose: 40 mg - Labs Labs: 07/06/16 06:00 07/06/16 06:00 PT 10.7 Seconds (9.9-11.8) 06/19/16 18:15 INR 0.99 (0.93-1.08) 06/19/16 18:15 APTT 30.8 Seconds (23.7-30.8) 06/19/16 18:15 - Constitutional Appears: Non-toxic, No Acute Distress - Eye Exam Eye Exam: EOMI - ENT Exam ENT Exam: Mucous Membranes Moist - Respiratory Exam Respiratory Exam: Clear to Ausculation Bilateral. absent: Rales, Rhonchi, Wheezes - Cardiovascular Exam Cardiovascular Exam: REGULAR RHYTHM, +S1, +S2. absent: Gallop, Rubs, Murmur - GI/Abdominal Exam GI & Abdominal Exam: Soft, Normal Bowel Sounds. absent: Distended, Firm, Guarding, Rigid, Tenderness - Extremities Exam Extremities Exam: absent: Pedal Edema, Tenderness - Neurological Exam Neurological Exam: Alert, Awake, Oriented x3 - Psychiatric Exam Psychiatric exam: Normal Affect, Normal Mood - Skin Skin Exam: Dry, Intact, Normal Color, Warm Assessment and Plan - Assessment and Plan (Free Text) Assessment: The patient is a 61 year old man with history of HTN and NIDDM who is being admitted to the ICU for DKA, hemoptysis and sepsis 2/2 PNA. Plan: 1. Sepsis 2/2 Pneumonia: improving, decreased rhonchi - Repeat Ct done yesterday showed multifocal areas of consolidation with multifocal PNA; B/L pleural effusion R>L. Will consider thoracocentesis for fluid analysis and drainage. -empiric IV antibiotics -ID consult Dr. Hankins - will follow ID recs -acid-fast testing of the sputum x 4 negative -MSSA per cultures 06/19, 06/21, 06/22 -Cultures from 06/27 show trav albicans -Cultures from 06/24, , show no growth after 5 days -Cultures from 07/04 show no growth after 24hours -Stool Cultures from 07/04: negative -On Diflucan 200mg IV daily -Nafcilln 2gm -Zyvox for better lung penetration. -On D/C pt. to start the following: -Augmentin 875 PO BID x10 days -Zyvox 600mg PO BID x 10 days -Diflucan 200mg PO daily x 14 days Ophtho Consult - Dr. Schaffer - help appreciated -pt. to follow up with after d/c for complete eye exam -pt. not currently complaining of changes in vision Cardiac Consult - Dr. Torres - help appreciated -ECHO- please see full report -LV normal size and function -mild concentric LV hypertrophy -no report of vegetations -JANEL did not show signs of vegetations. -CT Chest/Abdomen/Pelvis 06/20 - please see full report -shows mutifocal PNA w/ Tree/ bed changes. 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 -CT Chest with IV contrast 06/26 - please see full report -Multiple areas of consolidation are seen in both lungs, no sig zacarias from previous study -CT Abd/Pelvis with PO contrast - please see full report -worsening BL lower lobe infiltrates -no evidence of acute changes/abscess in report -CT Lumbosacral spine with IV contrast - please see full report -no evidence of acute changes/abscess in report Pulm Consult - Dr. Rubio - help appreciated - repeat CT and ECHO 07/05 2. Acute Hemoptysis: resolved -ddx: TB vs malignancy -ruled out TB with three negative sets of sputum AFB samples -avoid anticoagulation 3. Diabetic Ketoacidosis (without coma) resolved - Resolved -HgA1c 16.9 -Endo consult - Dr. Hurst -ISS low dose -Metformin 500mg BID -Diabetic Diet -Diabetic Education 4. Acute Kidney Injury: resolved -likely pre-renal etiology due to intravascular depletion 5. Poorly Controlled Hypertension: resolving -due to medication non-compliance -Norvasc 10mg po daily -Clonidine 0.1mg po TID PRN SBP>165 -Lisinopril 30mg PO daily 6. GI Bleed/Anemia: stable -Hgb stable around 9.0 -complaint of black stools -Stool cultures are negative -Fe studies -low Fe, Fe%, TIBC -added Ferrous sulfate TID DVT PPx: SCDs GI PPx: Protonix Case is discussed with attending, Dr. Moreno <Bob Moreno - Last Filed: 07/06/16 14:16> Objective - Vital Signs/Intake and Output Vital Signs (last 24 hours): Temp Pulse Resp BP Pulse Ox 99.1 F 86 20 134/80 97 07/06/16 08:00 07/06/16 09:34 07/06/16 08:00 07/06/16 09:34 07/06/16 08:00 Intake and Output: 07/06/16 07/06/16 06:59 18:59 Intake Total 900 Output Total 2250 Balance -1350 - Medications Medications: Current Medications Acetaminophen (Tylenol 325mg Tab) 650 mg PO Q8 PRN PRN Reason: Fever >100.4 F Last Admin: 07/04/16 04:52 Dose: 650 mg Albuterol/Ipratropium (Duoneb 3 Mg/0.5 Mg (3 Ml) Ud) 3 ml IH Q2H PRN PRN Reason: Shortness of Breath Last Admin: 06/23/16 23:50 Dose: 3 ml Albuterol/Ipratropium (Duoneb 3 Mg/0.5 Mg (3 Ml) Ud) 3 ml IH [id number] [facility] Last Admin: 07/06/16 08:00 Dose: Not Given Amlodipine Besylate (Norvasc) 10 mg PO DAILY [facility] Last Admin: 07/06/16 09:33 Dose: 10 mg Benzonatate (Tessalon Perles) 100 mg PO TID [facility] Last Admin: 07/06/16 13:33 Dose: 100 mg Clonidine HCl (Catapres) 0.1 mg PO TID PRN PRN Reason: Systolic Blood Pressure Last Admin: 06/26/16 16:25 Dose: 0.1 mg Emollient Ointment (Vaseline Oint) 5 gm TOP PRN [facility] Ferrous Sulfate (Feosol Liq) 300 mg PO TID [facility] Last Admin: 07/06/16 13:32 Dose: 300 mg Nafcillin Sodium 2 gm/ Sodium (Chloride) 100 mls @ 100 mls/hr IVPB Q6 [facility] PRN Reason: Protocol Last Admin: 07/06/16 11:53 Dose: 100 mls/hr Fluconazole (Diflucan Iv 200 Mg/100 Ml Ns) 100 mls @ 100 mls/hr IVPB DAILY [facility] PRN Reason: Protocol Last Admin: 07/06/16 09:28 Dose: 100 mls/hr Insulin Human Lispro (Humalog Low) 0 units SC ACHS [facility] PRN Reason: Protocol Last Admin: 07/06/16 11:53 Dose: Not Given Linezolid (Zyvox) 600 mg PO BID [facility] PRN Reason: Protocol Last Admin: 07/06/16 09:28 Dose: 600 mg Lisinopril (Zestril) 30 mg PO DAILY [facility] Last Admin: 07/06/16 09:34 Dose: 30 mg Metformin HCl (Glucophage) 500 mg PO BID [facility] Last Admin: 07/06/16 09:28 Dose: 500 mg Multi-Ingredient Cream (Hydrocerin Cream) 1 ea TOP DAILY [facility] Last Admin: 07/06/16 09:29 Dose: 1 applic Pantoprazole Sodium (Protonix Ec Tab) 40 mg PO ACB [facility] Last Admin: 07/06/16 08:22 Dose: 40 mg - Labs Labs: 07/06/16 06:00 07/06/16 06:00 PT 10.7 Seconds (9.9-11.8) 06/19/16 18:15 INR 0.99 (0.93-1.08) 06/19/16 18:15 APTT 30.8 Seconds (23.7-30.8) 06/19/16 18:15 Attending/Attestation - Attestation I have personally seen and examined this patient.: Yes I have fully participated in the care of the patient.: Yes I have reviewed all pertinent clinical information, including history, physical exam and plan: Yes Notes (Text): 07/06/16 14:10 Attending note; Patient seen and examined with resident. Patient is a 61 year old man with history of HTN and NIDDM who presented with generalized weakness, polydysia, polyuria, hemoptysis, cough with greenish/ brown colored sputum, intermittent confusion and found to have DKA, hemoptysis and sepsis due to a multifocal pneumonia. Patient was also found to have MSSA bacteremia and candidemia/Trav albicans. He has been having fevers on and off. Patient is afebrile today .CT chest showed multifocal pneumonia/nodular changes. Repeat CT did not show any improvement however patient has clinically been improving. AFB x 3 is negative. TTE and JANEL showed no vegetations. He is on zyvox and nafcillin. Repeat blood culture from 06/24 are negative so far. Blood culture from 06/27 is growing trav albicans. Continue Diflucan. CT chest was repeated today due to fevers which revealed increased right sided pleural effusion with multifocal infiltrates. Discussed with help desk administrator who recommended bronchoscopy and CT guided drainage of right sided pleural effusion. We'll discuss with interventional radiologist Dr. Gordon Lazaro tomorrow for possible thoracentesis. Anemia is multifactorial (anemia of chronic disease and iron was also low). Stool for occult blood negative. No active bleeding noted. Continue iron pills. DM : on glucophage as per . Diabetic nurse educator evaluation appreciated. Dietary education given. Renal function is stable. Ophthalmology input appreciated. Recommended outpatient opthalmology evaluation.
--- NOTE | 2016-07-06 11:41 | PN ---
DATE: 07/06/2016 ENDO FOLLOWUP NOTE ROOM: 570. SUBJECTIVE: This is a 61-year-old male with recent uncontrolled type 2 insulin-requiring diabetes, n ow being followed closely for metabolic management. He initially presented with diabetic ketoacidosi s and dehydration, and has since then improved clinically and metabolically as noted thereof. He has been slowly tapered down his insulin dosing regimen, and yesterday we stopped even the basal insulin given as Levemir at bedtime. He is tolerating the oral hypoglycemic therapy very well, and his glyc emic profile has remained near optimal as noted. Today's glucose levels have ranged from 136-142 mg/dL. LABORATORY DATA: His latest chemistries include a BUN of 6, sodium 138, potassium 3.7, chloride 103, CO2 of 28, glucose 129, and creatinine 1.1. So, at this time, we will continue the low-dose correction scale using regular insulin as ordered. W e will also continue the same metformin given as 500 mg p.o. b.i.d. after meals as ordered. We will titrate incrementally as indicated to optimize metabolic control. We will follow. Sherri Hurst MD cc: [id number] TT: 07/06/2016 11:40:17 Confirmation # [id number] Dictation # [id number]
--- NOTE | 2016-07-06 15:15 | CP.PCM.PN ---
Subjective - Date & Time of Evaluation Date of Evaluation: 07/06/16 Time of Evaluation: 15:00 - Subjective Subjective: 61 y/o M w/ MSSA PNA Continues to have productive sputum No fevers in the past 24hrs. Subjectively feels the same Objective - Vital Signs/Intake and Output Vital Signs (last 24 hours): Temp Pulse Resp BP Pulse Ox 99.1 F 86 20 134/80 97 07/06/16 08:00 07/06/16 09:34 07/06/16 08:00 07/06/16 09:34 07/06/16 08:00 Intake and Output: 07/06/16 07/06/16 06:59 18:59 Intake Total 900 Output Total 2250 Balance -1350 - Medications Medications: Current Medications Acetaminophen (Tylenol 325mg Tab) 650 mg PO Q8 PRN PRN Reason: Fever >100.4 F Last Admin: 07/04/16 04:52 Dose: 650 mg Albuterol/Ipratropium (Duoneb 3 Mg/0.5 Mg (3 Ml) Ud) 3 ml IH Q2H PRN PRN Reason: Shortness of Breath Last Admin: 06/23/16 23:50 Dose: 3 ml Albuterol/Ipratropium (Duoneb 3 Mg/0.5 Mg (3 Ml) Ud) 3 ml IH [id number] [facility] Last Admin: 07/06/16 08:00 Dose: Not Given Amlodipine Besylate (Norvasc) 10 mg PO DAILY [facility] Last Admin: 07/06/16 09:33 Dose: 10 mg Benzonatate (Tessalon Perles) 100 mg PO TID [facility] Last Admin: 07/06/16 13:33 Dose: 100 mg Clonidine HCl (Catapres) 0.1 mg PO TID PRN PRN Reason: Systolic Blood Pressure Last Admin: 06/26/16 16:25 Dose: 0.1 mg Emollient Ointment (Vaseline Oint) 5 gm TOP PRN [facility] Ferrous Sulfate (Feosol Liq) 300 mg PO TID [facility] Last Admin: 07/06/16 13:32 Dose: 300 mg Nafcillin Sodium 2 gm/ Sodium (Chloride) 100 mls @ 100 mls/hr IVPB Q6 [facility] PRN Reason: Protocol Last Admin: 07/06/16 11:53 Dose: 100 mls/hr Fluconazole (Diflucan Iv 200 Mg/100 Ml Ns) 100 mls @ 100 mls/hr IVPB DAILY [facility] PRN Reason: Protocol Last Admin: 07/06/16 09:28 Dose: 100 mls/hr Insulin Human Lispro (Humalog Low) 0 units SC ACHS [facility] PRN Reason: Protocol Last Admin: 07/06/16 11:53 Dose: Not Given Linezolid (Zyvox) 600 mg PO BID [facility] PRN Reason: Protocol Last Admin: 07/06/16 09:28 Dose: 600 mg Lisinopril (Zestril) 30 mg PO DAILY [facility] [place] Last Admin: 07/06/16 09:34 Dose: 30 mg Metformin HCl (Glucophage) 500 mg PO BID [facility] Last Admin: 07/06/16 09:28 Dose: 500 mg Multi-Ingredient Cream (Hydrocerin Cream) 1 ea TOP DAILY [facility] Last Admin: 07/06/16 09:29 Dose: 1 applic Pantoprazole Sodium (Protonix Ec Tab) 40 mg PO ACB [facility] Last Admin: 07/06/16 08:22 Dose: 40 mg - Labs Labs: 07/06/16 06:00 07/06/16 06:00 PT 10.7 Seconds (9.9-11.8) 06/19/16 18:15 INR 0.99 (0.93-1.08) 06/19/16 18:15 APTT 30.8 Seconds (23.7-30.8) 06/19/16 18:15 - Head Exam Head Exam: ATRAUMATIC, NORMAL INSPECTION - Eye Exam Eye Exam: Normal appearance Pupil Exam: NORMAL ACCOMODATION - ENT Exam ENT Exam: Mucous Membranes Moist - Neck Exam Neck Exam: Normal Inspection - Respiratory Exam Respiratory Exam: Decreased Breath Sounds (rll ), Clear to Ausculation Bilateral , NORMAL BREATHING PATTERN - Cardiovascular Exam Cardiovascular Exam: REGULAR RHYTHM - GI/Abdominal Exam GI & Abdominal Exam: Normal Bowel Sounds - Exam Exam: NORMAL INSPECTION - Neurological Exam Neurological Exam: Alert, Oriented x3 Assessment and Plan - Assessment and Plan (Free Text) Assessment: 61 y/o M w/ MSSA PNA Repeat CT shows nodular infiltrates with New Pleural effusion . Plan for IR thoracentesis wednesday. If fevers continue today , bedside thoraentesis was offered if patient was worsening Tentative Bronchsocopy planned this week to explore the airway, wash-out and BAL . Continue abx and anti fungal per ID. Possible need for Repeat ECHO if fevers continue. Awaiting new sputum cx results.
--- NOTE | 2016-07-06 16:43 | CP.PCM.PN ---
Subjective - Date & Time of Evaluation Date of Evaluation: 07/06/16 Time of Evaluation: 15:30 - Subjective Subjective: Infectious Disease Follow Up: July 06, 2016 61 yo male with presentation of 2 days of generalized weakness, polydysia, polyuria, hemoptysis, cough with green-colored sputum, intermittent confusion and some mild SOB. On CT scan, tree in bud formations seen. Patient placed under respiratory isolation for TB workup. The patient has no recent travel history. 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 Prior to that, he worked for a [email or web address] company for 7 years. Extensive pulmonary findings on CT scan. Case discussed with Dr. Moreno. Culture of blood showing gram positive cocci on multiple cultures with FISH testing showing Staph Aureus. Last Vancomycin level at 13.4. Acid-Fast Bacilli Sputum evaluations x 3 are negative. Multiple cultures with MSSA growth. Patient feeling better overall. Patient still with persistent cough. Imaging studies suggest worsening infiltrate. On Nafcillin and Zyvox. JANEL done on Wednesday. Changed Vancomycin IV to Zyvox for better lung penetration Wednesday. Afebrile today. Cannot rule out malignancy as part of differential. The patient's JANEL did not show any vegetations. Repeat chest X- rays show persistent right lung infiltrates and right pleural effusion. On the whole, the patient is clinically improving. Noted that temperature went up to 101.2 F two days ago. Resend cutures. Clinically no physical changes. The patient has not had improvement in the repeat CT chest. For IR thoracentesis. Would see if the masses seen in the right lung can be biopsied. Have to rule out malignancy at this point. Objective - Vital Signs/Intake and Output Vital Signs (last 24 hours): Temp Pulse Resp BP Pulse Ox 99.1 F 89 20 151/79 H 98 07/06/16 16:00 07/06/16 16:00 07/06/16 16:00 07/06/16 16:00 07/06/16 16:00 Intake and Output: 07/06/16 07/06/16 06:59 18:59 Intake Total 900 780 Output Total 2250 1170 Balance -1350 -390 - Medications Medications: Current Medications Acetaminophen (Tylenol 325mg Tab) 650 mg PO Q8 PRN PRN Reason: Fever >100.4 F Last Admin: 07/04/16 04:52 Dose: 650 mg Albuterol/Ipratropium (Duoneb 3 Mg/0.5 Mg (3 Ml) Ud) 3 ml IH Q2H PRN PRN Reason: Shortness of Breath Last Admin: 06/23/16 23:50 Dose: 3 ml Albuterol/Ipratropium (Duoneb 3 Mg/0.5 Mg (3 Ml) Ud) 3 ml IH [id number] [facility] Last Admin: 07/06/16 08:00 Dose: Not Given Amlodipine Besylate (Norvasc) 10 mg PO DAILY [facility] Last Admin: 07/06/16 09:33 Dose: 10 mg Benzonatate (Tessalon Perles) 100 mg PO TID [facility] Last Admin: 07/06/16 13:33 Dose: 100 mg Clonidine HCl (Catapres) 0.1 mg PO TID PRN PRN Reason: Systolic Blood Pressure Last Admin: 06/26/16 16:25 Dose: 0.1 mg Emollient Ointment (Vaseline Oint) 5 gm TOP PRN [facility] Ferrous Sulfate (Feosol Liq) 300 mg PO TID [facility] Last Admin: 07/06/16 13:32 Dose: 300 mg Nafcillin Sodium 2 gm/ Sodium (Chloride) 100 mls @ 100 mls/hr IVPB Q6 [facility] PRN Reason: Protocol Last Admin: 07/06/16 11:53 Dose: 100 mls/hr Insulin Human Lispro (Humalog Low) 0 units SC ACHS [facility] PRN Reason: Protocol Last Admin: 07/06/16 16:16 Dose: Not Given Linezolid (Zyvox) 600 mg PO BID [facility] PRN Reason: Protocol Last Admin: 07/06/16 09:28 Dose: 600 mg Lisinopril (Zestril) 30 mg PO DAILY [facility] Last Admin: 07/06/16 09:34 Dose: 30 mg Metformin HCl (Glucophage) 500 mg PO BID [facility] Last Admin: 07/06/16 09:28 Dose: 500 mg Multi-Ingredient Cream (Hydrocerin Cream) 1 ea TOP DAILY [facility] Last Admin: 07/06/16 09:29 Dose: 1 applic Pantoprazole Sodium (Protonix Ec Tab) 40 mg PO ACB [facility] Last Admin: 07/06/16 08:22 Dose: 40 mg - Labs Labs: 07/06/16 06:00 07/06/16 06:00 PT 10.7 Seconds (9.9-11.8) 06/19/16 18:15 INR 0.99 (0.93-1.08) 06/19/16 18:15 APTT 30.8 Seconds (23.7-30.8) 06/19/16 18:15 - Constitutional Appears: Non-toxic, No Acute Distress, Chronically Ill - Head Exam Head Exam: ATRAUMATIC, NORMOCEPHALIC - Eye Exam Eye Exam: EOMI, PERRL Pupil Exam: NORMAL ACCOMODATION, PERRL - ENT Exam ENT Exam: Mucous Membranes Moist, Normal External Ear Exam, TM's Normal Bilaterally - Neck Exam Neck Exam: Full ROM, Normal Inspection - Respiratory Exam Respiratory Exam: Decreased Breath Sounds, NORMAL BREATHING PATTERN. absent: Rales, Rhonchi, Wheezes Additional comments: right lung decreased breath sounds. - Cardiovascular Exam Cardiovascular Exam: REGULAR RHYTHM, RRR, +S1, +S2 - GI/Abdominal Exam GI & Abdominal Exam: Soft, Normal Bowel Sounds. absent: Distended, Tenderness - Extremities Exam Extremities Exam: Full ROM, Normal Inspection - Neurological Exam Neurological Exam: Alert, Awake, CN II-XII Intact, Oriented x3 - Psychiatric Exam Psychiatric exam: Normal Affect, Normal Mood - Skin Skin Exam: Intact, Normal Color Assessment and Plan - Assessment and Plan (Free Text) Assessment: 61 yo male presenting with Uncontrolled DM and DKA. Incidental finding of pneumonic picture with a possibility for TB. The patient is under isolation for TB. Risks for TB appear to be low. The patient for acid-fast testing of the sputum x 3. Cannot rule out ALISON, fungal, or severe bacterial infections such as Staph Aureus or Strep Pneumonia. He is being treated for his DKA. On Vancomycin and Zosyn. gram positive cocci in blood cultures. May need to consider Teflaro instead to get better concentrations in the lung for MRSA. Supportive care. AFB x 3 negative. Multiple blood cultures with gram positive cocci. FISH indicating Staph Aureus. On Vancomycin and Zosyn currently. Would obtain Quantiferon for reference point... a positive Quantiferon would not impact management of the case at this time. This test would only indicate patient exposure during his lifetime. Would obtain echocardiogram as well. MSSA in multiple cultures. TTE does not show vegetations. The patient appears to be improving. Switched from Zosyn to Nafcillin during this hospitalization. Persistent cough. X-ray of chest and CT Abd/Pel showing worsening left sided infiltrates. CT of the Chest is pending. Switch Vancomycin to Zyvox on Wednesday. On Zyvox and Nafcillin currently. Planned for JANEL Wednesday (done). Persistent fevers and cough. Cannot rule out malignancy as part of the differential. Await official results of the JANEL - preliminary report is no vegetations. Patient with yeast growth on one blood culture. Awaiting identification of yeast. Started on Diflucan 200mg IV daily for now. Patient with temperature up to 101.2 F two afternoon ago. Chest X-ray did not show any changes to right-sided pneumonia. Patient continues to have pain in right lung when coughing. At this point, would repeat cultures. Hold further Motrin doses unless fever reoccurs. Agree with obtaining CT Chest. Will consider advancing antibiotics to Ancef or Zosyn from Nafcillin if fevers persist. Agree with thoracentesis and evaluating for potenital malignancy. The patient did not have fevers today. Thank you for allowing me to participate in the care of this patient, we will follow with you.
[2016-07-07] MEDS: Albuterol-Ipratrop 3 mg / 0.5 (3 ml) UD IH SCH ×4 (04:50→19:41)
[2016-07-07] MEDS: Nafcillin 2 GM in Sodium Chloride 0.9% 100 ML IVPB SCH ×3 (06:03→18:36)
[2016-07-07 07:20] LABS: ADD MANUAL DIFF? NO
[2016-07-07 07:29] LABS: BASO # 0.03 K/mm3 (0.0-2.0); BASO % 0.5 % (0.0-3.0); EOS # 0.1 (0.0-0.7); EOS % 1.2 % (1.5-5.0); GRAN # 3.27 (1.4-6.5); GRAN % 56.4 % (50.0-68.0); HEMATOCRIT 29.8 % (42.0-52.0); LYMPH # 1.9 (1.2-3.4); LYMPH % 32.6 % (22.0-35.0); MEAN CELL VOLUME 86.1 fL (80.0-105.0); MEAN CORPUSCULAR HEMOGLOBIN 26.9 pg (25.0-35.0); MEAN CORPUSCULAR HGB CONC 31.2 g/dl (31.0-37.0); MONO # 0.5 (0.1-0.6); MONO % 9.3 % (1.0-6.0); PLATELET COUNT 362 10^3/uL (120.0-450.0); RED CELL DISTRIBUTION WIDTH 14.6 % (11.5-14.5); WHITE BLOOD COUNT 5.8 10^3/ul (4.5-11.0)
[2016-07-07 07:42] LABS: ALB/GLOB RATIO 0.6 (1.1-1.8); ALKALINE PHOSPHATASE 66 U/L (38-133); ALT/SGPT 23 U/L (7-56); AST/SGOT 21 U/L (15-59); BILIRUBIN,TOTAL 0.7 mg/dL (0.2-1.3); BLOOD UREA NITROGEN 5 mg/dL (7-21); CALCIUM 8.9 mg/dL (8.4-10.5); CARBON DIOXIDE 28 mmol/L (21-33); CHLORIDE 103 mmol/L (98-107); GFR AFRICAN-AMERICAN > 60; GLUCOSE,RANDOM 99 mg/dL (70-110); POTASSIUM 3.6 mmol/L (3.6-5.0); SODIUM 137 mmol/L (132-148); TOTAL PROTEIN 7.7 g/dL (5.8-8.3)
[2016-07-07] MEDS: Insulin Lispro (humaLOG) LOW Coverage SC SCH ×4 (08:06→22:34)
[2016-07-07] MEDS: Pantoprazole 40 mg EC Tab PO SCH (08:20)
[2016-07-07] MEDS: Hydrocerin(120 gm) TOP SCH (09:27)
[2016-07-07] MEDS: Ferrous Sulfate 300 mg/5 mL Liq UD PO SCH ×3 (09:27→18:36)
--- NOTE | 2016-07-07 11:06 | CP.PCM.PN ---
<OnealAaron - Last Filed: 07/07/16 13:34> Subjective - Date & Time of Evaluation Date of Evaluation: 07/07/16 Time of Evaluation: 07:40 - Subjective Subjective: HOSPITALISTS PROGRESS NOTE Pt is seen and examined at bedside. Continues to complain of productive cough and although his breathing has improved significantly since admission, he feels that he is not longer progressing. He did not have any fevers overnight but complained of mild headaches that started yesterday. He denies having any CP, abd pain, N/V, fevers or chills. Objective - Vital Signs/Intake and Output Vital Signs (last 24 hours): Temp Pulse Resp BP Pulse Ox 98.9 F 79 20 146/81 97 07/07/16 08:14 07/07/16 09:28 07/07/16 08:14 07/07/16 09:28 07/07/16 08:14 Intake and Output: 07/07/16 07/07/16 06:59 18:59 Intake Total 1140 Output Total 2625 Balance -1485 - Medications Medications: Current Medications Acetaminophen (Tylenol 325mg Tab) 650 mg PO Q8 PRN PRN Reason: Fever >100.4 F Last Admin: 07/04/16 04:52 Dose: 650 mg Albuterol/Ipratropium (Duoneb 3 Mg/0.5 Mg (3 Ml) Ud) 3 ml IH Q2H PRN PRN Reason: Shortness of Breath Last Admin: 06/23/16 23:50 Dose: 3 ml Albuterol/Ipratropium (Duoneb 3 Mg/0.5 Mg (3 Ml) Ud) 3 ml IH [id number] [facility] Last Admin: 07/07/16 08:29 Dose: Not Given Amlodipine Besylate (Norvasc) 10 mg PO DAILY [facility] Last Admin: 07/07/16 09:28 Dose: 10 mg Benzonatate (Tessalon Perles) 100 mg PO TID [facility] Last Admin: 07/07/16 09:28 Dose: 100 mg Clonidine HCl (Catapres) 0.1 mg PO TID PRN PRN Reason: Systolic Blood Pressure Last Admin: 06/26/16 16:25 Dose: 0.1 mg Emollient Ointment (Vaseline Oint) 5 gm TOP PRN [facility] Ferrous Sulfate (Feosol Liq) 300 mg PO TID [facility] Last Admin: 07/07/16 09:27 Dose: 300 mg Nafcillin Sodium 2 gm/ Sodium (Chloride) 100 mls @ 100 mls/hr IVPB Q6 [facility] PRN Reason: Protocol Last Admin: 07/07/16 06:03 Dose: 100 mls/hr Insulin Human Lispro (Humalog Low) 0 units SC ACHS [facility] PRN Reason: Protocol Last Admin: 07/07/16 08:06 Dose: Not Given Linezolid (Zyvox) 600 mg PO BID [facility] PRN Reason: Protocol Last Admin: 07/07/16 09:28 Dose: 600 mg Lisinopril (Zestril) 30 mg PO DAILY [facility] Last Admin: 07/07/16 09:28 Dose: 30 mg Metformin HCl (Glucophage) 500 mg PO BID [facility] Last Admin: 07/07/16 09:27 Dose: 500 mg Multi-Ingredient Cream (Hydrocerin Cream) 1 ea TOP DAILY [facility] Last Admin: 07/07/16 09:27 Dose: 1 applic - Labs Labs: 07/07/16 07:00 07/07/16 07:00 PT 10.7 Seconds (9.9-11.8) 06/19/16 18:15 INR 0.99 (0.93-1.08) 06/19/16 18:15 APTT 30.8 Seconds (23.7-30.8) 06/19/16 18:15 - Constitutional Appears: Non-toxic, No Acute Distress - Head Exam Head Exam: ATRAUMATIC, NORMOCEPHALIC - Eye Exam Eye Exam: EOMI Pupil Exam: PERRL - ENT Exam ENT Exam: Mucous Membranes Dry, Normal Exam - Neck Exam Neck Exam: Full ROM, Normal Inspection. absent: Lymphadenopathy, Thyromegaly - Respiratory Exam Respiratory Exam: Rhonchi (at both bases BL), NORMAL BREATHING PATTERN - Cardiovascular Exam Cardiovascular Exam: REGULAR RHYTHM, RRR, +S1, +S2. absent: JVD - GI/Abdominal Exam GI & Abdominal Exam: Soft, Normal Bowel Sounds. absent: Tenderness - Extremities Exam Extremities Exam: Full ROM. absent: Joint Swelling, Pedal Edema, Tenderness - Back Exam Back Exam: NORMAL INSPECTION - Neurological Exam Neurological Exam: Alert, Awake, CN II-XII Intact, Normal Gait, Oriented x3 - Psychiatric Exam Psychiatric exam: Normal Affect, Normal Mood - Skin Skin Exam: Dry, Intact, Normal Color, Warm Assessment and Plan - Assessment and Plan (Free Text) Assessment: The patient is a 61 year old man with history of HTN and NIDDM who is being admitted to the ICU for DKA, hemoptysis and sepsis 2/2 PNA. Plan: 1. Sepsis 2/2 Pneumonia: improving, decreased rhonchi -empiric IV antibiotics -ID consult Dr. Hankins - will follow ID recs -Sputum cultures gram - rods -acid-fast testing of the sputum x 4 negative -MSSA per cultures 06/19, 06/21, 06/22 -Cultures from 06/27 show trav albicans -Cultures from 06/24, , show no growth after 5 days -Cultures from 07/04 show no growth after 3 days -Stool Cultures from 07/04: negative -On Diflucan 200mg IV daily -Nafcilln 2gm -Zyvox for better lung penetration. -On D/C pt. to start the following: -Augmentin 875 PO BID x10 days -Zyvox 600mg PO BID x 10 days -Diflucan 200mg PO daily x 14 days IR consult - Dr. Lazaro - appreciate recs -Ir guided biopsy scheduled later today. Ophtho Consult - Dr. Schaffer - help appreciated -pt. to follow up with after d/c for complete eye exam -pt. not currently complaining of changes in vision Cardiac Consult - Dr. Torres - help appreciated -ECHO- please see full report -LV normal size and function -mild concentric LV hypertrophy -no report of vegetations -JANEL did not show signs of vegetations. -CT Chest/Abdomen/Pelvis 06/20 - please see full report -shows mutifocal PNA w/ Tree/ bed changes. -Unclear if the tree/bud changes were present [facility] and not the new infiltrates are superimposed. -CT Chest with IV contrast 06/26 - please see full report -Multiple areas of consolidation are seen in both lungs, no sig zacarias from previous study -CT Repeat 07/05 showed multifocal areas of consolidation with multifocal PNA; B/ L pleural effusion R>L. Will consider thoracocentesis for fluid analysis and drainage. -CT Abd/Pelvis with PO contrast - please see full report -worsening BL lower lobe infiltrates -no evidence of acute changes/abscess in report -CT Lumbosacral spine with IV contrast - please see full report -no evidence of acute changes/abscess in report Pulm Consult - Dr. Rubio - help appreciated - repeat CT and ECHO 07/05 2. Acute Hemoptysis: resolved -ddx: TB vs malignancy -ruled out TB with three negative sets of sputum AFB samples -avoid anticoagulation 3. Diabetic Ketoacidosis (without coma) resolved - Resolved -HgA1c 16.9 -Endo consult - Dr. Hurst -ISS low dose -Metformin 500mg BID -Diabetic Diet -Diabetic Education 4. Acute Kidney Injury: resolved -likely pre-renal etiology due to intravascular depletion 5. Poorly Controlled Hypertension: resolving -due to medication non-compliance -Norvasc 10mg po daily -Clonidine 0.1mg po TID PRN SBP>165 -Lisinopril 30mg PO daily 6. GI Bleed/Anemia: stable -Hgb stable around 9.0 -complaint of black stools -Stool cultures are negative -Fe studies -low Fe, Fe%, TIBC -added Ferrous sulfate TID DVT PPx: SCDs GI PPx: Protonix <Rangasamy,Ajantha - Last Filed: 07/07/16 15:19> Objective - Vital Signs/Intake and Output Vital Signs (last 24 hours): Temp Pulse Resp BP Pulse Ox 98.9 F 79 20 146/81 97 07/07/16 08:14 07/07/16 09:28 07/07/16 08:14 07/07/16 09:28 07/07/16 08:14 Intake and Output: 07/07/16 07/07/16 06:59 18:59 Intake Total 1140 760 Output Total 2625 760 Balance -1485 0 - Medications Medications: Current Medications Acetaminophen (Tylenol 325mg Tab) 650 mg PO Q8 PRN PRN Reason: Fever >100.4 F Last Admin: 07/04/16 04:52 Dose: 650 mg Albuterol/Ipratropium (Duoneb 3 Mg/0.5 Mg (3 Ml) Ud) 3 ml IH Q2H PRN PRN Reason: Shortness of Breath Last Admin: 06/23/16 23:50 Dose: 3 ml Albuterol/Ipratropium (Duoneb 3 Mg/0.5 Mg (3 Ml) Ud) 3 ml IH [id number] [facility] Last Admin: 07/07/16 13:24 Dose: Not Given Amlodipine Besylate (Norvasc) 10 mg PO DAILY [facility] Last Admin: 07/07/16 09:28 Dose: 10 mg Benzonatate (Tessalon Perles) 100 mg PO TID [facility] Last Admin: 07/07/16 13:05 Dose: Not Given Clonidine HCl (Catapres) 0.1 mg PO TID PRN PRN Reason: Systolic Blood Pressure Last Admin: 06/26/16 16:25 Dose: 0.1 mg Emollient Ointment (Vaseline Oint) 5 gm TOP PRN [facility] Ferrous Sulfate (Feosol Liq) 300 mg PO TID [facility] Last Admin: 07/07/16 13:05 Dose: Not Given Nafcillin Sodium 2 gm/ Sodium (Chloride) 100 mls @ 100 mls/hr IVPB Q6 [facility] PRN Reason: Protocol Last Admin: 07/07/16 11:32 Dose: 100 mls/hr Sodium Chloride (Sodium Chloride 0.45%) 1,000 mls @ 80 mls/hr IV .[id number] [facility] Meropenem 1g/NS 100mL IVPB (Meropenem 1g/Ns 100ml Ivpb) 1 gm in 100 mls @ 100 mls/hr IVPB Q8 [facility] PRN Reason: Protocol Stop: 07/07/16 22:59 Insulin Human Lispro (Humalog Low) 0 units SC ACHS [facility] PRN Reason: Protocol Last Admin: 07/07/16 11:32 Dose: Not Given Linezolid (Zyvox) 600 mg PO BID [facility] PRN Reason: Protocol Last Admin: 07/07/16 09:28 Dose: 600 mg Lisinopril (Zestril) 30 mg PO DAILY [facility] Last Admin: 07/07/16 09:28 Dose: 30 mg Metformin HCl (Glucophage) 500 mg PO BID [facility] Last Admin: 07/07/16 09:27 Dose: 500 mg Multi-Ingredient Cream (Hydrocerin Cream) 1 ea TOP DAILY [facility] Last Admin: 07/07/16 09:27 Dose: 1 applic Pantoprazole Sodium (Protonix Inj) 40 mg IVP DAILY [facility] - Labs Labs: 07/07/16 07:00 07/07/16 07:00 PT 10.7 Seconds (9.9-11.8) 06/19/16 18:15 INR 0.99 (0.93-1.08) 06/19/16 18:15 APTT 30.8 Seconds (23.7-30.8) 06/19/16 18:15 Attending/Attestation - Attestation I have personally seen and examined this patient.: Yes I have fully participated in the care of the patient.: Yes I have reviewed all pertinent clinical information, including history, physical exam and plan: Yes Notes (Text): 07/07/16 15:18 Attending note; Patient seen and examined with resident. Patient is a 61 year old man with history of HTN and NIDDM who presented with generalized weakness, polydysia, polyuria, hemoptysis, cough with greenish/ brown colored sputum, intermittent confusion and found to have DKA, hemoptysis and sepsis due to a multifocal pneumonia. Patient was also found to have MSSA bacteremia and candidemia/Trav albicans. Patient is afebrile today. CT chest showed multifocal pneumonia/nodular changes. AFB x 3 is negative. TTE and JANEL showed no vegetations. CT reviewed with Dr. Gordon Lazaro. Plan for CT-guided biopsy today. zyvox and nafcillin. Repeat blood culture from 06/24 are negative so far. Blood culture from 06/27 is growing trav albicans. Continue Diflucan. Anemia is multifactorial (anemia of chronic disease and iron was also low). Stool for occult blood negative. No active bleeding noted. Continue iron pills. DM : on glucophage as per . Diabetic nurse educator evaluation appreciated. Dietary education given. Renal function is stable. Ophthalmology input appreciated. Recommended outpatient opthalmology evaluation. upon discharge the patient will follow up with PMD of choice.
[2016-07-07] MEDS ORDERED: Midazolam 2 MG/2 ML VIAL ONE (14:04)
[2016-07-07] MEDS ORDERED: Sodium Chloride 0.45% 1,000 ML IV SCH (14:45)
--- NOTE | 2016-07-07 14:57 | PN ---
DATE: 07/07/2016 ROOM: 570. SUBJECTIVE: This is a 61-year-old male with recent uncontrolled type 2 insulin-requiring diabetes, n ow being followed closely for metabolic management. He actually presented here with diabetic ketoaci dosis and dehydration and has remarkably improved both metabolically and clinically and actually has been taken off all insulin therapy given as a basal and bolus insulin drug combination as noted. He is currently only on a very low dose correction scale using regular insulin with actually no further insulin requirements as noted thereof. His latest glucose levels have ranged from 117-133 mg/dL. Hi s latest chemistries include a BUN of 5, sodium 137, potassium 3.6, chloride 103, CO2 28, glucose 99, and creatinine 1.1. So at this time, we will continue only the oral hypoglycemic therapy given as m etformin at 500 mg b.i.d. after meals as ordered. We will titrate incrementally as indicated to opti ned metabolic control. We will follow. Sherri Hurst MD cc: [id number] TT: 07/07/2016 14:56:02 Confirmation # [id number] Dictation # [id number] gavin
[2016-07-07] MEDS ORDERED: Oxycodone/Acetaminophen 5/325 mg Tab PO PRN (15:47)
--- NOTE | 2016-07-07 15:48 | RAD ---
HISTORY: post biopsy COMPARISON: 07/04/2016 FINDINGS: LUNGS: There is no significant change in the right-sided alveolar infiltrate. The left lung remains clear. PLEURA: No significant pleural effusion identified, no pneumothorax apparent. CARDIOVASCULAR: Normal. OSSEOUS STRUCTURES: No significant abnormalities. VISUALIZED UPPER ABDOMEN: Normal. OTHER FINDINGS: None. IMPRESSION: No evidence of pneumothorax
[2016-07-07] MEDS ORDERED: Morphine 2 mg/ml ISec ONE (15:50)
[2016-07-07] MEDS ORDERED: Morphine 4 mg/ml ISec IVP ONE (15:50)
[2016-07-07] MEDS ORDERED: Morphine 2 mg/ml ISec IVP ONE (15:55)
--- NOTE | 2016-07-07 16:19 | CT ---
PROCEDURE: CT guided right upper lobe lung biopsy. HISTORY: Multiple lung opacities with air bronchograms and cavitation. ? Infection versus malignancy. Needs biopsy. PHYSICIAN(S): Gordon Lazaro MD. TECHNIQUE: The relative risks and indications of the procedure were explained to the patient and consent obtained. The patient was placed supine on the CT scanner and preliminary images through the upper lungs obtained. Conscious sedation and monitoring were provided throughout the procedure by a nurse. Is a 4 cm right upper lobe lung opacity with air bronchograms and cavitation.. A right anterior approach was selected and the area prepped and draped in the usual sterile fashion. 1% Xylocaine was used to anesthetize the skin and soft tissues. A 19 gauge guiding needle was advanced into the 4 cm right upper lobe lung opacity.. Its position was confirmed with CT. Using coaxial technique, multiple core biopsies were obtained. The postprocedure images show no evidence of large pneumothorax or significant hemorrhage.. IMPRESSION: 1. CT-guided right upper lobe lung biopsy as described above. The specimens were sent for microbiology and histology.
--- NOTE | 2016-07-07 17:03 | PN ---
DATE: 07/07/2016 The patient seen and examined at bedside. He is status post lung nodule biopsy. He tolerated the procedure well, except for mild hemoptysis, which stopped shortly thereafter. Chest x-ray after the procedure did not reveal any pneumothorax, some reticular nodular opacities, right more than left. PHYSICAL EXAMINATION: VITAL SIGNS: Blood pressure 146/79, temperature 98.9, heart rate 74, oxygen saturation 99% on 3 liters per minute nasal cannula. HEAD AND NECK: Atraumatic. LUNGS: Decreased breath sounds bilaterally, right more than left. HEART: Regular rate and rhythm. S1, S2 normal. ABDOMEN: Soft, nontender, nondistended. MUSCULOSKELETAL: No C/C/E. NEUROLOGIC: The patient moves all extremities spontaneously. SKIN: Moist. PSYCHIATRIC: The patient is alert and oriented x 3. LABORATORIES: WBC 5.8, hemoglobin 9.3, platelet count 362. Sodium 137, potassium 3.6, chloride 103, carbon dioxide 28, BUN 5, creatinine 1.1, glucose 99. AST 21, ALT 23. HIV negative. MEDICATIONS: Normal saline 80 mL per hour, Tylenol p.r.n., DuoNeb p.r.n. and every 6 hours, Norvasc, Tessalon Perles, clonidine p.r.n., ferrous sulfate, regular insulin sliding scale low protocol, Zyvox, Zestril, meropenem, metformin , nafcillin, Percocet p.r.n., Protonix. ASSESSMENT AND PLAN: This is a 61-year-old gentleman who is recovering from methicillin-sensitive Staphylococcus aureus pneumonia and who has recurrent febrile episodes. The last blood culture showed positivity for Yoli and patient is on Diflucan. Last sputum culture positive for gram-negative rods. Discussed with ID and started on meropenem. Possibility of noninfectious etiology also cannot be ruled out at present time. However, patient undergone lung nodule biopsy and before proceeding with further workup, I will speak with pathology service to see if any conclusive diagnosis can be made based on obtained pathology. Autoimmune disorder as well as malignancy are among noninfectious etiologies that are on differential diagnosis list, along with [employer] and eosinophilic pneumonia. We will continue to target euvolemia, euglycemia, normothermia and oxygen saturation more than 90%. We will continue with deep venous thrombosis and gastrointestinal prophylaxis. ccm time 40 min Tripp Rubio MD cc: [id number] TT: 07/07/2016 17:02:27 Confirmation # [id number] Dictation # [id number] en MTDD
[2016-07-07] MEDS: Meropenem 1g/NS 100mL IVPB 1 GM/100 ML PIGGYBACK IVPB SCH ×2 (17:13→22:35)
--- NOTE | 2016-07-07 23:02 | CP.PCM.PN ---
Subjective - Date & Time of Evaluation Date of Evaluation: 07/07/16 Time of Evaluation: 21:00 - Subjective Subjective: Infectious Disease Follow Up: July 07, 2016 61 yo male with presentation of 2 days of generalized weakness, polydysia, polyuria, hemoptysis, cough with green-colored sputum, intermittent confusion and some mild SOB. On CT scan, tree in bud formations seen. Patient placed under respiratory isolation for TB workup. The patient has no recent travel history. 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 Prior to that, he worked for a [employer] company for 7 years. Extensive pulmonary findings on CT scan. Case discussed with Dr. Moreno. Culture of blood showing gram positive cocci on multiple cultures with FISH testing showing Staph Aureus. Last Vancomycin level at 13.4. Acid-Fast Bacilli Sputum evaluations x 3 are negative. Multiple cultures with MSSA growth. Patient feeling better overall. Patient still with persistent cough. Imaging studies suggest worsening infiltrate. On Nafcillin and Zyvox. JANEL done on Wednesday. Changed Vancomycin IV to Zyvox for better lung penetration Wednesday. Afebrile today. Cannot rule out malignancy as part of differential. The patient's JANEL did not show any vegetations. Repeat chest X- rays show persistent right lung infiltrates and right pleural effusion. On the whole, the patient is clinically improving. Noted that temperature went up to 101.2 F two days ago. Resend cutures. Clinically no physical changes. The patient has not had improvement in the repeat CT chest. Would see if the masses seen in the right lung can be biopsied. Have to rule out malignancy at this point. Dr. Gordon Lazaro performed a CT guided biopsy today of the 4 cm diameter right upper lobe mass in the lung. Objective - Vital Signs/Intake and Output Vital Signs (last 24 hours): Temp Pulse Resp BP Pulse Ox 98.9 F 75 21 143/69 99 07/07/16 16:11 07/07/16 16:11 07/07/16 16:11 07/07/16 16:11 07/07/16 16:11 Intake and Output: 07/07/16 07/08/16 18:59 06:59 Intake Total 1090 600 Output Total 760 600 Balance 330 0 - Medications Medications: Current Medications Acetaminophen (Tylenol 325mg Tab) 650 mg PO Q8 PRN PRN Reason: Fever >100.4 F Last Admin: 07/04/16 04:52 Dose: 650 mg Albuterol/Ipratropium (Duoneb 3 Mg/0.5 Mg (3 Ml) Ud) 3 ml IH Q2H PRN PRN Reason: Shortness of Breath Last Admin: 06/23/16 23:50 Dose: 3 ml Albuterol/Ipratropium (Duoneb 3 Mg/0.5 Mg (3 Ml) Ud) 3 ml IH [id number] [facility] Last Admin: 07/07/16 19:41 Dose: Not Given Amlodipine Besylate (Norvasc) 10 mg PO DAILY [facility] Last Admin: 07/07/16 09:28 Dose: 10 mg Benzonatate (Tessalon Perles) 100 mg PO TID [facility] Last Admin: 07/07/16 18:37 Dose: 100 mg Clonidine HCl (Catapres) 0.1 mg PO TID PRN PRN Reason: Systolic Blood Pressure Last Admin: 06/26/16 16:25 Dose: 0.1 mg Emollient Ointment (Vaseline Oint) 5 gm TOP PRN [facility] Ferrous Sulfate (Feosol Liq) 300 mg PO TID [facility] Last Admin: 07/07/16 18:36 Dose: 300 mg Nafcillin Sodium 2 gm/ Sodium (Chloride) 100 mls @ 100 mls/hr IVPB Q6 [facility] PRN Reason: Protocol Last Admin: 07/07/16 18:36 Dose: 100 mls/hr Sodium Chloride (Sodium Chloride 0.45%) 1,000 mls @ 80 mls/hr IV .[id number] [facility] Last Admin: 07/07/16 18:37 Dose: 80 mls/hr Meropenem 1g/NS 100mL IVPB (Meropenem 1g/Ns 100ml Ivpb) 1 gm in 100 mls @ 100 mls/hr IVPB Q8 [facility] PRN Reason: Protocol Stop: 07/07/16 22:59 Last Admin: 07/07/16 22:35 Dose: 100 mls/hr Insulin Human Lispro (Humalog Low) 0 units SC ACHS [facility] PRN Reason: Protocol Last Admin: 07/07/16 22:34 Dose: Not Given Linezolid (Zyvox) 600 mg PO BID [facility] PRN Reason: Protocol Last Admin: 07/07/16 18:37 Dose: 600 mg Lisinopril (Zestril) 30 mg PO DAILY [facility] Last Admin: 07/07/16 09:28 Dose: 30 mg Metformin HCl (Glucophage) 500 mg PO BID [facility] Last Admin: 07/07/16 18:36 Dose: 500 mg Multi-Ingredient Cream (Hydrocerin Cream) 1 ea TOP DAILY [facility] Last Admin: 07/07/16 09:27 Dose: 1 applic Oxycodone/Acetaminophen (Percocet 5/325 Mg Tab) 1 tab PO Q6H PRN PRN Reason: Pain, moderate (4-7) Stop: 07/10/16 15:48 Pantoprazole Sodium (Protonix Inj) 40 mg IVP DAILY [facility] - Labs Labs: 07/07/16 07:00 07/07/16 07:00 PT 10.7 Seconds (9.9-11.8) 06/19/16 18:15 INR 0.99 (0.93-1.08) 06/19/16 18:15 APTT 30.8 Seconds (23.7-30.8) 06/19/16 18:15 - Constitutional Appears: Non-toxic, No Acute Distress, Chronically Ill - Head Exam Head Exam: ATRAUMATIC, NORMOCEPHALIC - Eye Exam Eye Exam: EOMI, PERRL Pupil Exam: NORMAL ACCOMODATION, PERRL - ENT Exam ENT Exam: Mucous Membranes Moist, Normal External Ear Exam, TM's Normal Bilaterally - Neck Exam Neck Exam: Full ROM, Normal Inspection - Respiratory Exam Respiratory Exam: Decreased Breath Sounds, Clear to Ausculation Bilateral, NORMAL BREATHING PATTERN. absent: Rales, Rhonchi, Wheezes Additional comments: right lung decreased breath sounds. - Cardiovascular Exam Cardiovascular Exam: REGULAR RHYTHM, RRR, +S1, +S2 - GI/Abdominal Exam GI & Abdominal Exam: Soft, Normal Bowel Sounds. absent: Distended, Tenderness - Extremities Exam Extremities Exam: Full ROM, Normal Inspection - Neurological Exam Neurological Exam: Alert, Awake, CN II-XII Intact, Oriented x3 - Psychiatric Exam Psychiatric exam: Normal Affect, Normal Mood - Skin Skin Exam: Intact, Normal Color Assessment and Plan - Assessment and Plan (Free Text) Assessment: 61 yo male presenting with Uncontrolled DM and DKA. Incidental finding of pneumonic picture with a possibility for TB. The patient is under isolation for TB. Risks for TB appear to be low. The patient for acid-fast testing of the sputum x 3. Cannot rule out ALISON, fungal, or severe bacterial infections such as Staph Aureus or Strep Pneumonia. He is being treated for his DKA. On Vancomycin and Zosyn. gram positive cocci in blood cultures. May need to consider Teflaro instead to get better concentrations in the lung for MRSA. Supportive care. AFB x 3 negative. Multiple blood cultures with gram positive cocci. FISH indicating Staph Aureus. On Vancomycin and Zosyn currently. Would obtain Quantiferon for reference point... a positive Quantiferon would not impact management of the case at this time. This test would only indicate patient exposure during his lifetime. Would obtain echocardiogram as well. MSSA in multiple cultures. TTE does not show vegetations. The patient appears to be improving. Switched from Zosyn to Nafcillin during this hospitalization. Persistent cough. X-ray of chest and CT Abd/Pel showing worsening left sided infiltrates. CT of the Chest is pending. Switch Vancomycin to Zyvox on Wednesday. On Zyvox and Nafcillin currently. Planned for JANEL Wednesday (done). Persistent fevers and cough. Cannot rule out malignancy as part of the differential. Await official results of the JANEL - preliminary report is no vegetations. Patient with yeast growth on one blood culture. Awaiting identification of yeast. Continued on Diflucan 200mg IV daily for now. Patient with temperature up to 101.2 F three afternoon ago. Chest X-ray did not show any changes to right-sided pneumonia. Patient continues to have pain in right lung when coughing. At this point, would repeat cultures. Hold further Motrin doses unless fever reoccurs. Agree with obtaining CT Chest. Will consider advancing antibiotics to Ancef or Zosyn from Nafcillin if fevers persist. Agree with thoracentesis and evaluating for potenital malignancy. The patient did not have fevers today. CT guided biopsy performed by Dr. Gordon Lazaro today of the right upper lobe of a 4 cm diameter consolidation. Thank you for allowing me to participate in the care of this patient, we will follow with you.
[2016-07-08] MEDS: Albuterol-Ipratrop 3 mg / 0.5 (3 ml) UD IH SCH ×4 (01:05→19:44)
[2016-07-08] MEDS: Nafcillin 2 GM in Sodium Chloride 0.9% 100 ML IVPB SCH ×3 (01:46→11:50)
[2016-07-08] MEDS: Insulin Lispro (humaLOG) LOW Coverage SC SCH ×3 (08:21→17:01)
[2016-07-08] MEDS: Pantoprazole 40 mg EC Tab PO SCH (08:21)
--- NOTE | 2016-07-08 08:49 | CP.PCM.PN ---
<Aaron Oneal - Last Filed: 07/08/16 17:22> Subjective - Date & Time of Evaluation Date of Evaluation: 07/08/16 Time of Evaluation: 07:10 - Subjective Subjective: HOSPITALISTS PROGRESS NOTE Pt is seen and examined at bedside. Pt. improving slowly and complains of blood tinged sputum s/p lung biopsy. He did not have any other complaints and denies headache, fever, chills, chest pain, nausea, vomiting, or diarrhea. Objective - Vital Signs/Intake and Output Vital Signs (last 24 hours): Temp Pulse Resp BP Pulse Ox 99 F 88 20 158/84 H 98 07/08/16 08:14 07/08/16 08:14 07/08/16 08:14 07/08/16 08:14 07/08/16 08:14 Intake and Output: 07/08/16 07/08/16 06:59 18:59 Intake Total 600 Output Total 600 Balance 0 - Medications Medications: Current Medications Acetaminophen (Tylenol 325mg Tab) 650 mg PO Q8 PRN PRN Reason: Fever >100.4 F Last Admin: 07/04/16 04:52 Dose: 650 mg Albuterol/Ipratropium (Duoneb 3 Mg/0.5 Mg (3 Ml) Ud) 3 ml IH Q2H PRN PRN Reason: Shortness of Breath Last Admin: 06/23/16 23:50 Dose: 3 ml Albuterol/Ipratropium (Duoneb 3 Mg/0.5 Mg (3 Ml) Ud) 3 ml IH [id number] [facility] Last Admin: 07/08/16 07:30 Dose: 3 ml Amlodipine Besylate (Norvasc) 10 mg PO DAILY [facility] Last Admin: 07/07/16 09:28 Dose: 10 mg Benzonatate (Tessalon Perles) 100 mg PO TID [facility] Last Admin: 07/07/16 18:37 Dose: 100 mg Clonidine HCl (Catapres) 0.1 mg PO TID PRN PRN Reason: Systolic Blood Pressure Last Admin: 06/26/16 16:25 Dose: 0.1 mg Emollient Ointment (Vaseline Oint) 5 gm TOP PRN [facility] Ferrous Sulfate (Feosol Liq) 300 mg PO TID [facility] Last Admin: 07/07/16 18:36 Dose: 300 mg Nafcillin Sodium 2 gm/ Sodium (Chloride) 100 mls @ 100 mls/hr IVPB Q6 [facility] PRN Reason: Protocol Last Admin: 07/08/16 06:18 Dose: 100 mls/hr Sodium Chloride (Sodium Chloride 0.45%) 1,000 mls @ 80 mls/hr IV .[id number] [facility] Last Admin: 07/07/16 18:37 Dose: 80 mls/hr Insulin Human Lispro (Humalog Low) 0 units SC ACHS [facility] PRN Reason: Protocol Last Admin: 07/08/16 08:21 Dose: Not Given Linezolid (Zyvox) 600 mg PO BID [facility] PRN Reason: Protocol Last Admin: 07/07/16 18:37 Dose: 600 mg Lisinopril (Zestril) 30 mg PO DAILY [facility] Last Admin: 07/07/16 09:28 Dose: 30 mg Metformin HCl (Glucophage) 500 mg PO BID [facility] Last Admin: 07/07/16 18:36 Dose: 500 mg Multi-Ingredient Cream (Hydrocerin Cream) 1 ea TOP DAILY [facility] Last Admin: 07/07/16 09:27 Dose: 1 applic Oxycodone/Acetaminophen (Percocet 5/325 Mg Tab) 1 tab PO Q6H PRN PRN Reason: Pain, moderate (4-7) Stop: 07/10/16 15:48 Pantoprazole Sodium (Protonix Ec Tab) 40 mg PO ACB [facility] Last Admin: 07/08/16 08:21 Dose: 40 mg - Labs Labs: 07/07/16 07:00 07/07/16 07:00 PT 10.7 Seconds (9.9-11.8) 06/19/16 18:15 INR 0.99 (0.93-1.08) 06/19/16 18:15 APTT 30.8 Seconds (23.7-30.8) 06/19/16 18:15 - Head Exam Additional comments: - Constitutional Appears: Non-toxic, No Acute Distress - Head Exam Head Exam: ATRAUMATIC, NORMOCEPHALIC - Eye Exam Eye Exam: EOMI Pupil Exam: PERRL - ENT Exam ENT Exam: Mucous Membranes Dry, Normal Exam - Neck Exam Neck Exam: Full ROM, Normal Inspection. absent: Lymphadenopathy, Thyromegaly - Respiratory Exam Respiratory Exam: Rhonchi (at both bases BL), NORMAL BREATHING PATTERN - Cardiovascular Exam Cardiovascular Exam: REGULAR RHYTHM, RRR, +S1, +S2. absent: JVD - GI/Abdominal Exam GI & Abdominal Exam: Soft, Normal Bowel Sounds. absent: Tenderness - Extremities Exam Extremities Exam: Full ROM. absent: Joint Swelling, Pedal Edema, Tenderness - Back Exam Back Exam: NORMAL INSPECTION - Neurological Exam Neurological Exam: Alert, Awake, CN II-XII Intact, Normal Gait, Oriented x3 - Psychiatric Exam Psychiatric exam: Normal Affect, Normal Mood - Skin Skin Exam: Dry, Intact, Normal Color, Warm Assessment and Plan - Assessment and Plan (Free Text) Assessment: The patient is a 61 year old man with history of HTN and NIDDM who is being admitted to the ICU for DKA, hemoptysis and sepsis 2/2 PNA. Plan: 1. Sepsis 2/2 Pneumonia: improving, decreased rhonchi -empiric IV antibiotics -ID consult Dr. Hankins - will follow ID recs -Sputum cultures gram - rods, Enterobacter Cloacae Ssp Cloac -acid-fast testing of the sputum x 4 negative -MSSA per cultures 06/19, 06/21, 06/22 -Cultures from 06/27 show trav albicans -Cultures from 06/24, , show no growth after 5 days -Cultures from 07/04 show no growth after 3 days -Stool Cultures from 07/04: negative -On Diflucan 200mg IV daily -Nafcilln 2gm -Zyvox for better lung penetration. -On D/C pt. to start the following: -Augmentin 875 PO BID x10 days -Zyvox 600mg PO BID x 10 days -Diflucan 200mg PO daily x 14 days IR consult - Dr. Lazaro - appreciate recs -Ir guided biopsy done on 07/07, awaiting results Ophtho Consult - Dr. Schaffer - help appreciated -pt. to follow up with after d/c for complete eye exam -pt. not currently complaining of changes in vision Cardiac Consult - Dr. Torres - help appreciated -ECHO- please see full report -LV normal size and function -mild concentric LV hypertrophy -no report of vegetations -JANEL did not show signs of vegetations. -CT Chest/Abdomen/Pelvis 06/20 - please see full report -shows mutifocal PNA w/ Tree/ bed changes. -Unclear if the tree/bud changes were present jail and not the new infiltrates are superimposed. -CT Chest with IV contrast 06/26 - please see full report -Multiple areas of consolidation are seen in both lungs, no sig zacarias from previous study -CT Repeat 07/05 showed multifocal areas of consolidation with multifocal PNA; B/ L pleural effusion R>L. Will consider thoracocentesis for fluid analysis and drainage. -CT Abd/Pelvis with PO contrast - please see full report -worsening BL lower lobe infiltrates -no evidence of acute changes/abscess in report -CT Lumbosacral spine with IV contrast - please see full report -no evidence of acute changes/abscess in report Pulm Consult - Dr. Rubio - help appreciated - repeat CT and ECHO 07/05 2. Acute Hemoptysis: resolved -ddx: TB vs malignancy -ruled out TB with three negative sets of sputum AFB samples -avoid anticoagulation 3. Diabetic Ketoacidosis (without coma) resolved - Resolved -HgA1c 16.9 -Endo consult - Dr. Hurst -ISS low dose -Metformin 500mg BID -Diabetic Diet -Diabetic Education 4. Acute Kidney Injury: resolved -likely pre-renal etiology due to intravascular depletion 5. Poorly Controlled Hypertension: resolving -due to medication non-compliance -Norvasc 10mg po daily -Clonidine 0.1mg po TID PRN SBP>165 -Lisinopril 30mg PO daily 6. GI Bleed/Anemia: stable -Hgb stable around 9.0 -complaint of black stools -Stool cultures are negative -Fe studies -low Fe, Fe%, TIBC -added Ferrous sulfate TID DVT PPx: SCDs GI PPx: Protonix <Rangasamy,Ajantha - Last Filed: 07/09/16 16:13> Objective - Vital Signs/Intake and Output Vital Signs (last 24 hours): Temp Pulse Resp BP Pulse Ox 99.3 F 82 20 160/83 H 95 07/09/16 16:00 07/09/16 16:00 07/09/16 16:00 07/09/16 16:00 07/09/16 16:00 Intake and Output: 07/09/16 07/09/16 06:59 18:59 Intake Total 1500 Output Total 4400 Balance -2900 - Medications Medications: Current Medications Acetaminophen (Tylenol 325mg Tab) 650 mg PO Q8 PRN PRN Reason: Fever >100.4 F Last Admin: 07/04/16 04:52 Dose: 650 mg Albuterol/Ipratropium (Duoneb 3 Mg/0.5 Mg (3 Ml) Ud) 3 ml IH Q2H PRN PRN Reason: Shortness of Breath Last Admin: 06/23/16 23:50 Dose: 3 ml Albuterol/Ipratropium (Duoneb 3 Mg/0.5 Mg (3 Ml) Ud) 3 ml IH [id number] [facility] Last Admin: 07/09/16 13:18 Dose: Not Given Amlodipine Besylate (Norvasc) 10 mg PO DAILY [facility] Last Admin: 07/09/16 10:23 Dose: 10 mg Benzonatate (Tessalon Perles) 100 mg PO TID [facility] Last Admin: 07/09/16 14:49 Dose: 100 mg Emollient Ointment (Vaseline Oint) 5 gm TOP PRN [facility] Ferrous Sulfate (Feosol Liq) 300 mg PO TID [facility] Last Admin: 07/09/16 14:48 Dose: 300 mg Ceftriaxone Sodium (Rocephin 1 Gram Ivpb) 1 gm in 100 mls @ 100 mls/hr IVPB DAILY [facility] PRN Reason: Protocol Last Admin: 07/09/16 10:24 Dose: 100 mls/hr Fluconazole (Diflucan Iv 200 Mg/100 Ml Ns) 100 mls @ 100 mls/hr IVPB DAILY [facility] PRN Reason: Protocol Last Admin: 07/09/16 14:07 Dose: 100 mls/hr Insulin Human Lispro (Humalog Low) 0 units SC ACBD [facility] PRN Reason: Protocol Last Admin: 07/09/16 08:42 Dose: Not Given Linezolid (Zyvox) 600 mg PO BID [facility] PRN Reason: Protocol Last Admin: 07/09/16 10:25 Dose: 600 mg Lisinopril (Zestril) 30 mg PO DAILY [facility] Last Admin: 07/09/16 10:24 Dose: 30 mg Metformin HCl (Glucophage) 500 mg PO BID [facility] Last Admin: 07/09/16 10:23 Dose: 500 mg Metoprolol Tartrate (Lopressor) 25 mg PO BID [facility] Multi-Ingredient Cream (Hydrocerin Cream) 1 ea TOP DAILY [facility] Last Admin: 07/09/16 10:23 Dose: 1 applic Oxycodone/Acetaminophen (Percocet 5/325 Mg Tab) 1 tab PO Q6H PRN PRN Reason: Pain, moderate (4-7) Stop: 07/10/16 15:48 Pantoprazole Sodium (Protonix Ec Tab) 40 mg PO ACB [facility] Last Admin: 07/09/16 08:43 Dose: 40 mg - Labs Labs: 07/09/16 06:45 07/09/16 06:45 PT 10.7 Seconds (9.9-11.8) 06/19/16 18:15 INR 0.99 (0.93-1.08) 06/19/16 18:15 APTT 30.8 Seconds (23.7-30.8) 06/19/16 18:15 Attending/Attestation - Attestation I have personally seen and examined this patient.: Yes I have fully participated in the care of the patient.: Yes I have reviewed all pertinent clinical information, including history, physical exam and plan: Yes Notes (Text): 07/09/16 16:11 Attending note; Patient seen and examined with resident. Patient is a 61 year old man with history of HTN and NIDDM who presented with generalized weakness, polydysia, polyuria, hemoptysis, cough with greenish/ brown colored sputum, intermittent confusion and found to have DKA, hemoptysis and sepsis due to a multifocal pneumonia. Patient was also found to have MSSA bacteremia and candidemia/Trav albicans. Patient is afebrile today. CT chest showed multifocal pneumonia/nodular changes. AFB x 3 is negative. TTE and JANEL showed no vegetations. status post right lung biopsy by Dr. violeta lazaro. on IV Rocephin and zyvox.Repeat blood culture from 06/24 are negative so far. Blood culture from 06/27 is growing trav albicans. Continue Diflucan. DM : on glucophage as per . Diabetic nurse educator evaluation appreciated. Dietary education given. upon discharge the patient will follow up with PMD of choice.
[2016-07-08] MEDS: Ferrous Sulfate 300 mg/5 mL Liq UD PO SCH ×3 (09:14→17:45)
[2016-07-08] MEDS: Hydrocerin(120 gm) TOP SCH (09:15)
--- NOTE | 2016-07-08 12:56 | PN ---
DATE: 07/08/2016 The patient seen and examined at bedside. He is comfortable. He still has a mild cough and sometimes mild hemoptysis (status post lung biopsy). PHYSICAL EXAMINATION: VITAL SIGNS: Temperature 99, blood pressure 158/84, heart rate 88, oxygen saturation 98% on 2 liters nasal cannula, respiratory rate 20. HEAD AND NECK: Atraumatic. LUNGS: Some crackles, right more than left. No subcutaneous emphysema. HEART: Regular rate and rhythm. S1, S2 normal. ABDOMEN: Soft, nontender, nondistended. MUSCULOSKELETAL: No C/C/E. NEUROLOGIC: The patient moves all extremities spontaneously. SKIN: Moist. PSYCHIATRIC: The patient is alert and oriented x 3. LABORATORY DATA: Pending for today. MEDICATIONS: Normal saline at 80 mL per hour, Tylenol p.r.n., DuoNeb p.r.n. and every 6 hours, Norvasc, clonidine p.r.n., Feosol, Hydrocerin topical, regular insulin sliding scale low protocol, linezolid, lisinopril, metformin, nafcillin, Percocet, ceftriaxone. ASSESSMENT AND PLAN: This 61-year-old gentleman with MSSA pneumonia, recurrent febrile episodes, despite some clinical improvement Repeated sputum also grew Enterobacter cloacae that was pansensitive, and I discussed with ID service choice of antibiotics for it. It was decided to proceed with ceftriaxone and stop nafcillin. The patient is also on linezolid. Lung biopsy was done yesterday and results are pending. Preliminary results supposed to be available tomorrow as per my discussion with Dr. Pinedo (pathologist). Meanwhile, patient is afebrile. Will continue to target euvolemia, euglycemia, normothermia and oxygen saturation more than 90%. Will continue with DVT and GI prophylaxis. ccm time 40 min Tripp Rubio MD cc: [id number] TT: 07/08/2016 12:55:40 Confirmation # [id number] Dictation # [id number] randell MULLER
[2016-07-08 13:48] LABS: BLOOD UREA NITROGEN 7 mg/dL (7-21); CALCIUM 8.5 mg/dL (8.4-10.5); CARBON DIOXIDE 25 mmol/L (21-33); CHLORIDE 102 mmol/L (98-107); GFR AFRICAN-AMERICAN > 60; GLUCOSE,RANDOM 91 mg/dL (70-110); POTASSIUM 3.9 mmol/L (3.6-5.0); SODIUM 136 mmol/L (132-148)
[2016-07-08] MEDS: cefTRIAXone 1 gm 1 GM/100 ML BAG IVPB SCH (13:48)
[2016-07-08 14:02] LABS: ADD MANUAL DIFF? NO
[2016-07-08 14:05] LABS: BASO # 0.01 K/mm3 (0.0-2.0); BASO % 0.1 % (0.0-3.0); EOS # 0.1 (0.0-0.7); EOS % 1.3 % (1.5-5.0); GRAN # 4.88 (1.4-6.5); GRAN % 64.4 % (50.0-68.0); LYMPH # 2.1 (1.2-3.4); MEAN CELL VOLUME 86.8 fL (80.0-105.0); MEAN CORPUSCULAR HEMOGLOBIN 27.2 pg (25.0-35.0); MEAN CORPUSCULAR HGB CONC 31.4 g/dl (31.0-37.0); MEAN PLATELET VOLUME 10.4 fl (7.0-11.0); MONO # 0.5 (0.1-0.6); MONO % 6.2 % (1.0-6.0); PLATELET COUNT 312 10^3/uL (120.0-450.0); RED CELL DISTRIBUTION WIDTH 14.7 % (11.5-14.5); WHITE BLOOD COUNT 7.6 10^3/ul (4.5-11.0)
--- NOTE | 2016-07-08 14:22 | CP.PCM.PN ---
Subjective - Date & Time of Evaluation Date of Evaluation: 07/08/16 Time of Evaluation: 13:00 - Subjective Subjective: Infectious Disease Follow Up: July 08, 2016 61 yo male with presentation of 2 days of generalized weakness, polydysia, polyuria, hemoptysis, cough with green-colored sputum, intermittent confusion and some mild SOB. On CT scan, tree in bud formations seen. Patient placed under respiratory isolation for TB workup. The patient has no recent travel history. 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 Prior to that, he worked for a [employer] company for 7 years. Extensive pulmonary findings on CT scan. Case discussed with Dr. Moreno. Culture of blood showing gram positive cocci on multiple cultures with FISH testing showing Staph Aureus. Last Vancomycin level at 13.4. Acid-Fast Bacilli Sputum evaluations x 3 are negative. Multiple cultures with MSSA growth. Patient feeling better overall. Patient still with persistent cough. Imaging studies suggest worsening infiltrate. On Nafcillin and Zyvox. JANEL done on Wednesday. Changed Vancomycin IV to Zyvox for better lung penetration Wednesday. Afebrile today. Cannot rule out malignancy as part of differential. The patient's JANEL did not show any vegetations. Repeat chest X- rays show persistent right lung infiltrates and right pleural effusion. On the whole, the patient is clinically improving. Noted that temperature went up to 101.2 F two days ago. Resend cutures. Clinically no physical changes. The patient has not had improvement in the repeat CT chest. Would see if the masses seen in the right lung can be biopsied. Have to rule out malignancy at this point. Dr. Gordon Lazaro performed a CT guided biopsy yesterday of the 4 cm diameter right upper lobe mass in the lung. Objective - Vital Signs/Intake and Output Vital Signs (last 24 hours): Temp Pulse Resp BP Pulse Ox 99 F 88 20 158/84 H 98 07/08/16 08:14 07/08/16 09:15 07/08/16 08:14 07/08/16 09:15 07/08/16 08:14 Intake and Output: 07/08/16 07/08/16 06:59 18:59 Intake Total 600 500 Output Total 600 Balance 0 500 - Medications Medications: Current Medications Acetaminophen (Tylenol 325mg Tab) 650 mg PO Q8 PRN PRN Reason: Fever >100.4 F Last Admin: 07/04/16 04:52 Dose: 650 mg Albuterol/Ipratropium (Duoneb 3 Mg/0.5 Mg (3 Ml) Ud) 3 ml IH Q2H PRN PRN Reason: Shortness of Breath Last Admin: 06/23/16 23:50 Dose: 3 ml Albuterol/Ipratropium (Duoneb 3 Mg/0.5 Mg (3 Ml) Ud) 3 ml IH [id number] [facility] Last Admin: 07/08/16 13:41 Dose: Not Given Amlodipine Besylate (Norvasc) 10 mg PO DAILY [facility] Last Admin: 07/08/16 09:15 Dose: 10 mg Benzonatate (Tessalon Perles) 100 mg PO TID [facility] Last Admin: 07/08/16 13:49 Dose: 100 mg Clonidine HCl (Catapres) 0.1 mg PO TID PRN PRN Reason: Systolic Blood Pressure Last Admin: 06/26/16 16:25 Dose: 0.1 mg Emollient Ointment (Vaseline Oint) 5 gm TOP PRN [facility] Ferrous Sulfate (Feosol Liq) 300 mg PO TID [facility] Last Admin: 07/08/16 13:48 Dose: 300 mg Sodium Chloride (Sodium Chloride 0.45%) 1,000 mls @ 80 mls/hr IV .[id number] [facility] Last Admin: 07/07/16 18:37 Dose: 80 mls/hr Ceftriaxone Sodium (Rocephin 1 Gram Ivpb) 1 gm in 100 mls @ 100 mls/hr IVPB DAILY [facility] PRN Reason: Protocol Last Admin: 07/08/16 13:48 Dose: 100 mls/hr Insulin Human Lispro (Humalog Low) 0 units SC ACBD [facility] PRN Reason: Protocol Linezolid (Zyvox) 600 mg PO BID [facility] PRN Reason: Protocol Last Admin: 07/08/16 09:16 Dose: 600 mg Lisinopril (Zestril) 30 mg PO DAILY [facility] Last Admin: 07/08/16 09:15 Dose: 30 mg Metformin HCl (Glucophage) 500 mg PO BID [facility] Last Admin: 07/08/16 09:15 Dose: 500 mg Multi-Ingredient Cream (Hydrocerin Cream) 1 ea TOP DAILY [facility] Last Admin: 07/08/16 09:15 Dose: 1 applic Oxycodone/Acetaminophen (Percocet 5/325 Mg Tab) 1 tab PO Q6H PRN PRN Reason: Pain, moderate (4-7) Stop: 07/10/16 15:48 Pantoprazole Sodium (Protonix Ec Tab) 40 mg PO ACB [facility] Last Admin: 07/08/16 08:21 Dose: 40 mg - Labs Labs: 07/08/16 13:55 07/08/16 13:30 PT 10.7 Seconds (9.9-11.8) 06/19/16 18:15 INR 0.99 (0.93-1.08) 06/19/16 18:15 APTT 30.8 Seconds (23.7-30.8) 06/19/16 18:15 - Constitutional Appears: Non-toxic, No Acute Distress, Chronically Ill - Head Exam Head Exam: ATRAUMATIC, NORMOCEPHALIC - Eye Exam Eye Exam: EOMI, PERRL Pupil Exam: NORMAL ACCOMODATION, PERRL - ENT Exam ENT Exam: Mucous Membranes Moist, Normal External Ear Exam, TM's Normal Bilaterally - Neck Exam Neck Exam: Full ROM, Normal Inspection - Respiratory Exam Respiratory Exam: Decreased Breath Sounds, NORMAL BREATHING PATTERN. absent: Rales, Rhonchi, Wheezes Additional comments: right lung decreased breath sounds. - Cardiovascular Exam Cardiovascular Exam: REGULAR RHYTHM, RRR, +S1, +S2 - GI/Abdominal Exam GI & Abdominal Exam: Soft, Normal Bowel Sounds. absent: Distended, Tenderness - Extremities Exam Extremities Exam: Full ROM, Normal Inspection - Neurological Exam Neurological Exam: Alert, Awake, CN II-XII Intact, Oriented x3 - Psychiatric Exam Psychiatric exam: Normal Affect, Normal Mood - Skin Skin Exam: Intact, Normal Color Assessment and Plan - Assessment and Plan (Free Text) Assessment: 61 yo male presenting with Uncontrolled DM and DKA. Incidental finding of pneumonic picture with a possibility for TB. The patient is under isolation for TB. Risks for TB appear to be low. The patient for acid-fast testing of the sputum x 3. Cannot rule out ALISON, fungal, or severe bacterial infections such as Staph Aureus or Strep Pneumonia. He is being treated for his DKA. On Vancomycin and Zosyn. gram positive cocci in blood cultures. May need to consider Teflaro instead to get better concentrations in the lung for MRSA. Supportive care. AFB x 3 negative. Multiple blood cultures with gram positive cocci. FISH indicating Staph Aureus. On Vancomycin and Zosyn currently. Would obtain Quantiferon for reference point... a positive Quantiferon would not impact management of the case at this time. This test would only indicate patient exposure during his lifetime. Would obtain echocardiogram as well. MSSA in multiple cultures. TTE does not show vegetations. The patient appears to be improving. Switched from Zosyn to Nafcillin during this hospitalization. Persistent cough. X-ray of chest and CT Abd/Pel showing worsening left sided infiltrates. CT of the Chest is pending. Switch Vancomycin to Zyvox on Wednesday. On Zyvox and Nafcillin currently. Planned for JANEL Wednesday (done). Persistent fevers and cough. Cannot rule out malignancy as part of the differential. Await official results of the JANEL - preliminary report is no vegetations. Patient with yeast growth on one blood culture. Awaiting identification of yeast. Continued on Diflucan 200mg IV daily for now. Patient with temperature up to 101.2 F several days ago. Chest X-ray did not show any changes to right-sided pneumonia. Patient continues to have pain in right lung when coughing. At this point, would repeat cultures. Hold further Motrin doses unless fever reoccurs. Agree with obtaining CT Chest. Will consider advancing antibiotics to Ancef or Zosyn from Nafcillin if fevers persist. Agree with thoracentesis and evaluating for potenital malignancy. The patient did not have fevers today. CT guided biopsy performed by Dr. Gordon Lazaro yesterday of the right upper lobe of a 4 cm diameter consolidation. Results of biopsy expected tomorrow. Thank you for allowing me to participate in the care of this patient, we will follow with you.
--- NOTE | 2016-07-08 16:08 | PN ---
DATE: 07/08/2016 ROOM: 570. HISTORY OF PRESENT ILLNESS: This is a 61-year-old male with recent uncontrolled type 2 insulin-requi ring diabetes, presenting here with diabetic ketoacidosis and dehydration and has since then improved clinically and metabolically and has actually been taken off all insulin therapy at this time. LABORAOTORY DATA: His glucose values have ranged from 123-136 mg/dL. His latest chemistries include a BUN of 7, sodium 136, potassium 3.9, chloride 102, CO2 of 25, glucose 91, and creatinine 1.1. PLAN: So, at this time, we will continue only the oral hypoglycemic drug therapy as given with metfo rmin given as 500 mg b.i.d. as ordered. We will also reduce the glucose testing to b.i.d. before ines akfast and dinner as ordered with the same Humalog coverage scale as ordered. We will titrate increm entally as indicated to optimize metabolic control. Will follow. Sherri Hurst MD cc: [id number] TT: 07/08/2016 16:08:02 Confirmation # [id number] Dictation # [id number] randell
[2016-07-09] MEDS: Albuterol-Ipratrop 3 mg / 0.5 (3 ml) UD IH SCH ×4 (01:46→19:58)
[2016-07-09 07:02] LABS: ADD MANUAL DIFF? NO
[2016-07-09 07:19] LABS: ALB/GLOB RATIO 0.7 (1.1-1.8); ALKALINE PHOSPHATASE 65 U/L (38-133); ALT/SGPT 27 U/L (7-56); AST/SGOT 17 U/L (15-59); BILIRUBIN,TOTAL 0.5 mg/dL (0.2-1.3); BLOOD UREA NITROGEN 7 mg/dL (7-21); CALCIUM 8.7 mg/dL (8.4-10.5); CARBON DIOXIDE 26 mmol/L (21-33); CHLORIDE 104 mmol/L (98-107); GFR AFRICAN-AMERICAN > 60; GLUCOSE,RANDOM 97 mg/dL (70-110); SODIUM 139 mmol/L (132-148)
[2016-07-09 07:58] LABS: HEMATOCRIT 30.8 % (42.0-52.0); MEAN CORPUSCULAR HEMOGLOBIN 27.1 pg (25.0-35.0); MEAN CORPUSCULAR HGB CONC 30.8 g/dl (31.0-37.0); RED CELL DISTRIBUTION WIDTH 14.7 % (11.5-14.5); WHITE BLOOD COUNT 6.2 10^3/ul (4.5-11.0)
[2016-07-09 07:59] LABS: BASO # 0.01 K/mm3 (0.0-2.0); BASO % 0.2 % (0.0-3.0); EOS # 0.1 (0.0-0.7); EOS % 1.9 % (1.5-5.0); GRAN # 3.84 (1.4-6.5); GRAN % 61.6 % (50.0-68.0); LYMPH # 1.8 (1.2-3.4); MONO # 0.5 (0.1-0.6); MONO % 8.3 % (1.0-6.0); PLATELET COUNT 361 10^3/uL (120.0-450.0)
[2016-07-09] MEDS: Insulin Lispro (humaLOG) LOW Coverage SC SCH ×2 (08:42→16:53)
[2016-07-09] MEDS: Pantoprazole 40 mg EC Tab PO SCH (08:43)
[2016-07-09] MEDS: Ferrous Sulfate 300 mg/5 mL Liq UD PO SCH ×3 (10:23→17:28)
[2016-07-09] MEDS: Hydrocerin(120 gm) TOP SCH (10:23)
[2016-07-09] MEDS: cefTRIAXone 1 gm 1 GM/100 ML BAG IVPB SCH (10:24)
[2016-07-09] MEDS: Fluconazole IV 200mg/100 ml NS 100 ML IVPB SCH (14:07)
--- NOTE | 2016-07-09 14:56 | RAD ---
HISTORY: Chest pain COMPARISON: 07/07/2016. FINDINGS: LUNGS: There is redemonstration of multifocal airspace disease in the right lung. The left lung is clear with PLEURA: There is a moderate right pleural effusion. No pneumothorax apparent. CARDIOVASCULAR: The heart is normal in size. OSSEOUS STRUCTURES: No significant abnormalities. VISUALIZED UPPER ABDOMEN: Normal. OTHER FINDINGS: None. IMPRESSION: Multifocal airspace disease in the right lung and moderate right pleural effusion.
--- NOTE | 2016-07-09 15:38 | PN ---
DATE: 07/09/2016 The patient is seen and examined at bedside. He has some mild pleuritic chest pain on coughing and laughing, which are not getting worse. It also does not appear to affect his breathing pattern. PHYSICAL EXAMINATION: VITAL SIGNS: Heart rate 92, blood pressure 162/89, oxygen saturation 92% on room air, respiratory rate 20. HEAD AND NECK: Atraumatic. LUNGS: Clear to auscultation bilaterally. Breath sounds okay bilaterally. HEART: Regular rate and rhythm. S1, S2 normal. ABDOMEN: Soft, nontender, nondistended. MUSCULOSKELETAL: No C/C/E. NEUROLOGIC: The patient moves all extremities spontaneously. SKIN: Moist. PSYCHIATRIC: The patient is alert and oriented x 3. LABORATORY DATA: WBC 6.2, hemoglobin 9.5, platelet count 261. Sodium 139, potassium 4, chloride 104, carbon dioxide 26, BUN 7, creatinine 1 down from 1.1 , glucose 97, AST 17, ALT 27. MEDICATIONS: Tylenol p.r.n., DuoNeb p.r.n. and every 6 hours, Norvasc, fluconazole, ferrous sulfate, regular insulin sliding scale low protocol, linezolid, lisinopril, metformin p.o., metoprolol, morphine, Percocet, Protonix , ceftriaxone. ASSESSMENT AND PLAN: This is a 61-year-old gentleman with slowly resolving MSSA pneumonia with superimposed gram-negative tracheobronchitis. Subsequent sputum culture was positive for Enterobacter cloacae, however, ashley sensitive. Nafcillin was switched to ceftriaxone, which would cover both organisms, MSSA and Enterobacter, based on susceptibility. The patient continued on linezolid by ID service as well. He also is on Diflucan as one of his blood cultures was positive for Yoli. The patient underwent a lung biopsy yesterday, which on preliminary review by pathologist reportedly revealed only inflammatory cells. Fungal AFB and bacterial culture were sent and results are pending. If final results return only inflammatory changes, without specific infectious or non- infectious etiology/diagnosis, next step mostly will depend on ID service as empiric corticosteroids in such situation will be too risky (that was discussed and concurred with ID service Dr. Hankins--no empiric corticosteroids). Radiographic picture is usually lag behind clinical improvement and CXR or CT chest would need to be repeated in 1 month after discharge to ascertain resolution of radiographic changes. That would give plenty of time to complete long-term abx course and eval clinical improvement by ID service in an outpatient basis. If patient dont improve on terminal carman abx, or suspicious changes on chest radiogram persist--surgical/VATS lung biopsy may be considered if no contraindications appear by that time. Patient does have some mild to moderate pleuritic chest pain on coughing and laughing which appeared after lung biopsy and likely related to it. Today's CXR didnt show any PTX, nor any worsening in infiltrate or pleural effusion. Infection prophylaxis with vaccination, pulmonary rehab, PT , bronchodilators, chest PT, mobilization is recomeended. DVT/GI prophylaxis. ccm time 40 min Tripp Rubio MD cc: [id number] TT: 07/09/2016 15:37:28 Confirmation # [id number] Dictation # [id number] gavin MULLER
--- NOTE | 2016-07-09 16:40 | CP.PCM.PN ---
<Aaron Oneal - Last Filed: 07/09/16 16:53> Subjective - Date & Time of Evaluation Date of Evaluation: 07/09/16 Time of Evaluation: 07:10 - Subjective Subjective: HOSPITALISTS PROGRESS NOTE Pt is seen and examined at bedside. Pt. no longer complains of blood tinged sputum. However he did have a low grade fever overnight of 100.2 and complained of chest pain when he coughs. It was explained to him that this is expected s/p lung biopsy. He did not have any other complaints and denies headache, chills, nausea, vomiting, or diarrhea. Preliminary biopsy results show inflammatory cells with no evidence of malignant cells. Pt. scheduled for PICC line and likely to be d/c home on antibiotics. Objective - Vital Signs/Intake and Output Vital Signs (last 24 hours): Temp Pulse Resp BP Pulse Ox 99.3 F 82 20 160/83 H 95 07/09/16 16:00 07/09/16 16:00 07/09/16 16:00 07/09/16 16:00 07/09/16 16:00 Intake and Output: 07/09/16 07/09/16 06:59 18:59 Intake Total 1500 Output Total 4400 Balance -2900 - Medications Medications: Current Medications Acetaminophen (Tylenol 325mg Tab) 650 mg PO Q8 PRN PRN Reason: Fever >100.4 F Last Admin: 07/04/16 04:52 Dose: 650 mg Albuterol/Ipratropium (Duoneb 3 Mg/0.5 Mg (3 Ml) Ud) 3 ml IH Q2H PRN PRN Reason: Shortness of Breath Last Admin: 06/23/16 23:50 Dose: 3 ml Albuterol/Ipratropium (Duoneb 3 Mg/0.5 Mg (3 Ml) Ud) 3 ml IH [id number] [facility] Last Admin: 07/09/16 13:18 Dose: Not Given Amlodipine Besylate (Norvasc) 10 mg PO DAILY [facility] Last Admin: 07/09/16 10:23 Dose: 10 mg Benzonatate (Tessalon Perles) 100 mg PO TID [facility] Last Admin: 07/09/16 14:49 Dose: 100 mg Emollient Ointment (Vaseline Oint) 5 gm TOP PRN [facility] Ferrous Sulfate (Feosol Liq) 300 mg PO TID [facility] Last Admin: 07/09/16 14:48 Dose: 300 mg Ceftriaxone Sodium (Rocephin 1 Gram Ivpb) 1 gm in 100 mls @ 100 mls/hr IVPB DAILY [facility] PRN Reason: Protocol Last Admin: 07/09/16 10:24 Dose: 100 mls/hr Fluconazole (Diflucan Iv 200 Mg/100 Ml Ns) 100 mls @ 100 mls/hr IVPB DAILY [facility] PRN Reason: Protocol Last Admin: 07/09/16 14:07 Dose: 100 mls/hr Insulin Human Lispro (Humalog Low) 0 units SC ACBD [facility] PRN Reason: Protocol Last Admin: 07/09/16 08:42 Dose: Not Given Linezolid (Zyvox) 600 mg PO BID [facility] PRN Reason: Protocol Last Admin: 07/09/16 10:25 Dose: 600 mg Lisinopril (Zestril) 30 mg PO DAILY [facility] Last Admin: 07/09/16 10:24 Dose: 30 mg Metformin HCl (Glucophage) 500 mg PO BID [facility] Last Admin: 07/09/16 10:23 Dose: 500 mg Metoprolol Tartrate (Lopressor) 25 mg PO BID [facility] Multi-Ingredient Cream (Hydrocerin Cream) 1 ea TOP DAILY [facility] Last Admin: 07/09/16 10:23 Dose: 1 applic Oxycodone/Acetaminophen (Percocet 5/325 Mg Tab) 1 tab PO Q6H PRN PRN Reason: Pain, moderate (4-7) Stop: 07/10/16 15:48 Pantoprazole Sodium (Protonix Ec Tab) 40 mg PO ACB [facility] Last Admin: 07/09/16 08:43 Dose: 40 mg - Labs Labs: 07/09/16 06:45 07/09/16 06:45 PT 10.7 Seconds (9.9-11.8) 06/19/16 18:15 INR 0.99 (0.93-1.08) 06/19/16 18:15 APTT 30.8 Seconds (23.7-30.8) 06/19/16 18:15 - Constitutional Appears: Non-toxic, No Acute Distress - Head Exam Head Exam: ATRAUMATIC, NORMOCEPHALIC - Eye Exam Eye Exam: EOMI Pupil Exam: PERRL - ENT Exam ENT Exam: Mucous Membranes Dry, Normal Exam - Neck Exam Neck Exam: Full ROM, Normal Inspection. absent: Lymphadenopathy, Thyromegaly - Respiratory Exam Respiratory Exam: Rhonchi (at both bases BL), NORMAL BREATHING PATTERN - Cardiovascular Exam Cardiovascular Exam: REGULAR RHYTHM, RRR, +S1, +S2. absent: JVD - GI/Abdominal Exam GI & Abdominal Exam: Soft, Normal Bowel Sounds. absent: Tenderness - Extremities Exam Extremities Exam: Full ROM. absent: Joint Swelling, Pedal Edema, Tenderness - Back Exam Back Exam: NORMAL INSPECTION - Neurological Exam Neurological Exam: Alert, Awake, CN II-XII Intact, Normal Gait, Oriented x3 - Psychiatric Exam Psychiatric exam: Normal Affect, Normal Mood - Skin Skin Exam: Dry, Intact, Normal Color, Warm Assessment and Plan - Assessment and Plan (Free Text) Assessment: The patient is a 61 year old man with history of HTN and NIDDM who is being admitted to the ICU for DKA, hemoptysis and sepsis 2/2 PNA. Plan: 1. Sepsis 2/2 Pneumonia: improving, decreased rhonchi -empiric IV antibiotics -Pt. to receive PICC line and continue IV antibiotics as outpatient -ID consult Dr. Hankins - will follow ID recs -Sputum cultures gram - rods, Enterobacter Cloacae Ssp Cloac -acid-fast testing of the sputum x 4 negative -MSSA per cultures 06/19, 06/21, 06/22 -Cultures from 06/27 show trav albicans -Cultures from 06/24, 06/28, 07/04 show no growth after 5 days -Stool Cultures from 07/04: negative -On Diflucan 200mg IV daily -Nafcilln 2gm -Zyvox for better lung penetration. -On D/C pt. to start the following: -Augmentin 875 PO BID x10 days -Zyvox 600mg PO BID x 10 days -Diflucan 200mg PO daily x 14 days IR consult - Dr. Lazaro - appreciate recs -Ir guided biopsy done on 07/07, -inflammatory cells, no sign of malignancy -cultures pending -No Growth after 2 days -No anaerobes isolated -Mycobacterial Culture - pending Ophtho Consult - Dr. Schaffer - help appreciated -pt. to follow up with after d/c for complete eye exam -pt. not currently complaining of changes in vision Cardiac Consult - Dr. Torres - help appreciated -ECHO- please see full report -LV normal size and function -mild concentric LV hypertrophy -no report of vegetations -JANEL did not show signs of vegetations. -CT Chest/Abdomen/Pelvis 06/20 - please see full report -shows mutifocal PNA w/ Tree/ bed changes. -Unclear if the tree/bud changes were present chcf and not the new infiltrates are superimposed. -CT Chest with IV contrast 06/26 - please see full report -Multiple areas of consolidation are seen in both lungs, no sig zacarias from previous study -CT Repeat 07/05 showed multifocal areas of consolidation with multifocal PNA; B/ L pleural effusion R>L. Will consider thoracocentesis for fluid analysis and drainage. -CT Abd/Pelvis with PO contrast - please see full report -worsening BL lower lobe infiltrates -no evidence of acute changes/abscess in report -CT Lumbosacral spine with IV contrast - please see full report -no evidence of acute changes/abscess in report Pulm Consult - Dr. Rubio - help appreciated - repeat CT and ECHO 07/05 2. Acute Hemoptysis: resolved -ddx: TB vs malignancy -ruled out TB with three negative sets of sputum AFB samples -avoid anticoagulation 3. Diabetic Ketoacidosis (without coma) resolved - Resolved -HgA1c 16.9 -Endo consult - Dr. Hurst -ISS low dose -Metformin 500mg BID -Diabetic Diet -Diabetic Education 4. Acute Kidney Injury: resolved -likely pre-renal etiology due to intravascular depletion 5. Poorly Controlled Hypertension: resolving -due to medication non-compliance -Norvasc 10mg po daily -Clonidine 0.1mg po TID PRN SBP>165 -Lisinopril 30mg PO daily 6. GI Bleed/Anemia: stable -Hgb stable around 9.0 -complaint of black stools -Stool cultures are negative -Fe studies -low Fe, Fe%, TIBC -added Ferrous sulfate TID DVT PPx: SCDs GI PPx: Protonix <[email or web address] - Last Filed: 07/10/16 17:34> Objective - Vital Signs/Intake and Output Vital Signs (last 24 hours): Temp Pulse Resp BP Pulse Ox 99.3 F 82 20 160/83 H 95 07/09/16 16:00 07/09/16 16:00 07/09/16 16:00 07/09/16 16:00 07/09/16 16:00 Intake and Output: 07/09/16 07/09/16 06:59 18:59 Intake Total 1500 Output Total 4400 Balance -2900 - Medications Medications: Current Medications Acetaminophen (Tylenol 325mg Tab) 650 mg PO Q8 PRN PRN Reason: Fever >100.4 F Last Admin: 07/04/16 04:52 Dose: 650 mg Albuterol/Ipratropium (Duoneb 3 Mg/0.5 Mg (3 Ml) Ud) 3 ml IH Q2H PRN PRN Reason: Shortness of Breath Last Admin: 06/23/16 23:50 Dose: 3 ml Albuterol/Ipratropium (Duoneb 3 Mg/0.5 Mg (3 Ml) Ud) 3 ml IH [id number] [facility] Last Admin: 07/09/16 13:18 Dose: Not Given Amlodipine Besylate (Norvasc) 10 mg PO DAILY [facility] Last Admin: 07/09/16 10:23 Dose: 10 mg Benzonatate (Tessalon Perles) 100 mg PO TID [facility] Last Admin: 07/09/16 14:49 Dose: 100 mg Emollient Ointment (Vaseline Oint) 5 gm TOP PRN [facility] Ferrous Sulfate (Feosol Liq) 300 mg PO TID [facility] Last Admin: 07/09/16 14:48 Dose: 300 mg Ceftriaxone Sodium (Rocephin 1 Gram Ivpb) 1 gm in 100 mls @ 100 mls/hr IVPB DAILY [facility] PRN Reason: Protocol Last Admin: 07/09/16 10:24 Dose: 100 mls/hr Fluconazole (Diflucan Iv 200 Mg/100 Ml Ns) 100 mls @ 100 mls/hr IVPB DAILY [facility] PRN Reason: Protocol Last Admin: 07/09/16 14:07 Dose: 100 mls/hr Insulin Human Lispro (Humalog Low) 0 units SC ACBD [facility] PRN Reason: Protocol Last Admin: 07/09/16 16:53 Dose: Not Given Linezolid (Zyvox) 600 mg PO BID [facility] PRN Reason: Protocol Last Admin: 07/09/16 10:25 Dose: 600 mg Lisinopril (Zestril) 30 mg PO DAILY [facility] Last Admin: 07/09/16 10:24 Dose: 30 mg Metformin HCl (Glucophage) 500 mg PO BID [facility] Last Admin: 07/09/16 10:23 Dose: 500 mg Metoprolol Tartrate (Lopressor) 25 mg PO BID [facility] Multi-Ingredient Cream (Hydrocerin Cream) 1 ea TOP DAILY [facility] Last Admin: 07/09/16 10:23 Dose: 1 applic Oxycodone/Acetaminophen (Percocet 5/325 Mg Tab) 1 tab PO Q6H PRN PRN Reason: Pain, moderate (4-7) Stop: 07/10/16 15:48 Pantoprazole Sodium (Protonix Ec Tab) 40 mg PO ACB [facility] Last Admin: 07/09/16 08:43 Dose: 40 mg - Labs Labs: 07/09/16 06:45 07/09/16 06:45 PT 10.7 Seconds (9.9-11.8) 06/19/16 18:15 INR 0.99 (0.93-1.08) 06/19/16 18:15 APTT 30.8 Seconds (23.7-30.8) 06/19/16 18:15 Attending/Attestation - Attestation I have personally seen and examined this patient.: Yes I have fully participated in the care of the patient.: Yes I have reviewed all pertinent clinical information, including history, physical exam and plan: Yes Notes (Text): 07/09/16 17:07 Attending note; Patient seen and examined with resident. Patient is a 61 year old man with history of HTN and NIDDM who presented with generalized weakness, polydysia, polyuria, hemoptysis, cough with greenish/ brown colored sputum, intermittent confusion and found to have DKA, hemoptysis and sepsis due to a multifocal pneumonia. Patient was also found to have MSSA bacteremia and candidemia/Trav albicans. Patient is afebrile and non tocxic today. CT chest showed multifocal pneumonia /nodular changes. AFB x 3 is negative. TTE and JANEL showed no vegetations. status post right lung biopsy by Dr. violeta lazaro. prelim results showed inflammatory cells. case discussed with ID/pulmonary in detail. We will treat patient with IV Rocephin for 1 week And by mouth Diflucan. follow-up the results next week. We will Decide about need for long-term antibiotics/fungal or to start steroids after biopsy results. Picc line requested. on IV Rocephin and zyvox.Repeat blood culture from 06/24 are negative so far. Blood culture from 06/27 is growing trav albicans. Continue Diflucan. DM : on glucophage as per . Diabetic nurse educator evaluation appreciated. Dietary education given. upon discharge the patient will follow up with PMD of choice.
--- NOTE | 2016-07-09 20:54 | CP.PCM.PN ---
Subjective - Date & Time of Evaluation Date of Evaluation: 07/09/16 Time of Evaluation: 19:00 - Subjective Subjective: Infectious Disease Follow Up: July 09, 2016 61 yo male with presentation of 2 days of generalized weakness, polydysia, polyuria, hemoptysis, cough with green-colored sputum, intermittent confusion and some mild SOB. On CT scan, tree in bud formations seen. Patient placed under respiratory isolation for TB workup. The patient has no recent travel history. 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 Prior to that, he worked for a [employer] company for 7 years. Extensive pulmonary findings on CT scan. Case discussed with Dr. Moreno. Culture of blood showing gram positive cocci on multiple cultures with FISH testing showing Staph Aureus. Last Vancomycin level at 13.4. Acid-Fast Bacilli Sputum evaluations x 3 are negative. Multiple cultures with MSSA growth. Patient feeling better overall. Patient still with persistent cough. Imaging studies suggest worsening infiltrate. On Nafcillin and Zyvox. JANEL done on Wednesday. Changed Vancomycin IV to Zyvox for better lung penetration Wednesday. Afebrile today. Cannot rule out malignancy as part of differential. The patient's JANEL did not show any vegetations. Repeat chest X- rays show persistent right lung infiltrates and right pleural effusion. On the whole, the patient is clinically improving. Noted that temperature went up to 101.2 F two days ago. Resend cutures. Clinically no physical changes. The patient has not had improvement in the repeat CT chest. Would see if the masses seen in the right lung can be biopsied. Have to rule out malignancy at this point. Dr. Gordon Lazaro performed a CT guided biopsy of the 4 cm diameter right upper lobe mass in the lung. Inflammatory cells seen in pathology. Patient major complaint is persistent cough. Objective - Vital Signs/Intake and Output Vital Signs (last 24 hours): Temp Pulse Resp BP Pulse Ox 99.3 F 82 20 160/83 H 95 07/09/16 16:00 07/09/16 17:29 07/09/16 16:00 07/09/16 17:29 07/09/16 16:00 - Medications Medications: Current Medications Acetaminophen (Tylenol 325mg Tab) 650 mg PO Q8 PRN PRN Reason: Fever >100.4 F Last Admin: 07/04/16 04:52 Dose: 650 mg Albuterol/Ipratropium (Duoneb 3 Mg/0.5 Mg (3 Ml) Ud) 3 ml IH Q2H PRN PRN Reason: Shortness of Breath Last Admin: 06/23/16 23:50 Dose: 3 ml Albuterol/Ipratropium (Duoneb 3 Mg/0.5 Mg (3 Ml) Ud) 3 ml IH Q4RICIN [facility] Last Admin: 07/09/16 19:58 Dose: Not Given Amlodipine Besylate (Norvasc) 10 mg PO DAILY [facility] Last Admin: 07/09/16 10:23 Dose: 10 mg Benzonatate (Tessalon Perles) 100 mg PO TID [facility] Last Admin: 07/09/16 17:28 Dose: 100 mg Emollient Ointment (Vaseline Oint) 5 gm TOP PRN [facility] Ferrous Sulfate (Feosol Liq) 300 mg PO TID [facility] Last Admin: 07/09/16 17:28 Dose: 300 mg Ceftriaxone Sodium (Rocephin 1 Gram Ivpb) 1 gm in 100 mls @ 100 mls/hr IVPB DAILY [facility] PRN Reason: Protocol Last Admin: 07/09/16 10:24 Dose: 100 mls/hr Fluconazole (Diflucan Iv 200 Mg/100 Ml Ns) 100 mls @ 100 mls/hr IVPB DAILY [facility] PRN Reason: Protocol Last Admin: 07/09/16 14:07 Dose: 100 mls/hr Insulin Human Lispro (Humalog Low) 0 units SC ACBD [facility] PRN Reason: Protocol Last Admin: 07/09/16 16:53 Dose: Not Given Linezolid (Zyvox) 600 mg PO BID [facility] PRN Reason: Protocol Last Admin: 07/09/16 17:29 Dose: 600 mg Lisinopril (Zestril) 30 mg PO DAILY [facility] Last Admin: 07/09/16 10:24 Dose: 30 mg Metformin HCl (Glucophage) 500 mg PO BID [facility] Last Admin: 07/09/16 17:29 Dose: 500 mg Metoprolol Tartrate (Lopressor) 25 mg PO BID [facility] Last Admin: 07/09/16 17:29 Dose: 25 mg Multi-Ingredient Cream (Hydrocerin Cream) 1 ea TOP DAILY [facility] Last Admin: 07/09/16 10:23 Dose: 1 applic Oxycodone/Acetaminophen (Percocet 5/325 Mg Tab) 1 tab PO Q6H PRN PRN Reason: Pain, moderate (4-7) Stop: 07/10/16 15:48 Pantoprazole Sodium (Protonix Ec Tab) 40 mg PO ACB [facility] Last Admin: 07/09/16 08:43 Dose: 40 mg - Labs Labs: 07/09/16 06:45 07/09/16 06:45 PT 10.7 Seconds (9.9-11.8) 06/19/16 18:15 INR 0.99 (0.93-1.08) 06/19/16 18:15 APTT 30.8 Seconds (23.7-30.8) 06/19/16 18:15 - Constitutional Appears: Non-toxic, No Acute Distress, Chronically Ill - Head Exam Head Exam: ATRAUMATIC, NORMOCEPHALIC - Eye Exam Eye Exam: EOMI, PERRL Pupil Exam: NORMAL ACCOMODATION, PERRL - ENT Exam ENT Exam: Mucous Membranes Moist, Normal External Ear Exam, TM's Normal Bilaterally - Neck Exam Neck Exam: Full ROM, Normal Inspection - Respiratory Exam Respiratory Exam: Decreased Breath Sounds, NORMAL BREATHING PATTERN. absent: Rales, Rhonchi, Wheezes Additional comments: right lung decreased breath sounds. - Cardiovascular Exam Cardiovascular Exam: REGULAR RHYTHM, RRR, +S1, +S2 - GI/Abdominal Exam GI & Abdominal Exam: Soft, Normal Bowel Sounds. absent: Distended, Tenderness - Extremities Exam Extremities Exam: Full ROM, Normal Inspection - Neurological Exam Neurological Exam: Alert, Awake, CN II-XII Intact, Oriented x3 - Psychiatric Exam Psychiatric exam: Normal Affect, Normal Mood - Skin Skin Exam: Intact, Normal Color Assessment and Plan - Assessment and Plan (Free Text) Assessment: 61 yo male presenting with Uncontrolled DM and DKA. Incidental finding of pneumonic picture with a possibility for TB. The patient is under isolation for TB. Risks for TB appear to be low. The patient for acid-fast testing of the sputum x 3. Cannot rule out ALISON, fungal, or severe bacterial infections such as Staph Aureus or Strep Pneumonia. He is being treated for his DKA. On Vancomycin and Zosyn. gram positive cocci in blood cultures. May need to consider Teflaro instead to get better concentrations in the lung for MRSA. Supportive care. AFB x 3 negative. Multiple blood cultures with gram positive cocci. FISH indicating Staph Aureus. On Vancomycin and Zosyn currently. Would obtain Quantiferon for reference point... a positive Quantiferon would not impact management of the case at this time. This test would only indicate patient exposure during his lifetime. Would obtain echocardiogram as well. MSSA in multiple cultures. TTE does not show vegetations. The patient appears to be improving. Switched from Zosyn to Nafcillin during this hospitalization. Persistent cough. X-ray of chest and CT Abd/Pel showing worsening left sided infiltrates. CT of the Chest is pending. Switch Vancomycin to Zyvox on Wednesday. On Zyvox and Nafcillin currently. Planned for JANEL Wednesday (done). Persistent fevers and cough. Cannot rule out malignancy as part of the differential. Await official results of the JANEL - preliminary report is no vegetations. Patient with yeast growth on one blood culture. Awaiting identification of yeast. Continued on Diflucan 200mg IV daily for now. Patient with temperature up to 101.2 F several days ago. Chest X-ray did not show any changes to right-sided pneumonia. Patient continues to have pain in right lung when coughing. At this point, would repeat cultures. Hold further Motrin doses unless fever reoccurs. Agree with obtaining CT Chest. Will consider advancing antibiotics to Ancef or Zosyn from Nafcillin if fevers persist. Agree with thoracentesis and evaluating for potenital malignancy. The patient did not have fevers today. CT guided biopsy performed by Dr. Gordon Lazaro yesterday of the right upper lobe of a 4 cm diameter consolidation. Results of biopsy show inflammatory cells. Would continue with Rocephin 1 gm daily for 7 days with PO Diflucan 200mg daily for 14 days and Zyvox PO 600mg BID for 7 days. Thank you for allowing me to participate in the care of this patient, we will follow with you.
--- NOTE | 2016-07-09 20:58 | PN ---
DATE: 07/09/2016 LOCATION: Room 570 SUBJECTIVE: This is a 61-year-old male with recent uncontrolled type 2 insulin-requiring diabetes, n ow taken off all insulin therapy and doing very well metabolically with oral hypoglycemic drug therap y as ordered. His latest chemistry showed a BUN of 7, sodium 139, potassium 4.0, chloride 104, CO2 2 6, glucose 97 and creatinine 1.0. His glucose levels have ranged from 102-131 mg/dL. At this time, we will continue the metformin given as 500 mg b.i.d. after meals as ordered. We will obtain serial chemistries and supplement accordingly as needed. We will follow. Sherri Hurst MD cc: [id number] TT: 07/09/2016 20:57:16 Confirmation # [id number] Dictation # [id number]
[2016-07-10] MEDS: Albuterol-Ipratrop 3 mg / 0.5 (3 ml) UD IH SCH ×3 (01:32→13:14)
[2016-07-10] MEDS: Insulin Lispro (humaLOG) LOW Coverage SC SCH (07:55)
[2016-07-10] MEDS: Pantoprazole 40 mg EC Tab PO SCH (08:00)
[2016-07-10 08:29] LABS: INR 1.03 (0.93-1.08); PARTIAL THROMBOPLASTIN TIME 30.7 Seconds (23.7-30.8)
[2016-07-10 08:31] VITALS: RESP 18; TEMP 98.5; O2SAT 97
[2016-07-10] MEDS: Ferrous Sulfate 300 mg/5 mL Liq UD PO SCH ×2 (09:47→14:00)
[2016-07-10] MEDS: Fluconazole IV 200mg/100 ml NS 100 ML IVPB SCH (09:47)
[2016-07-10 09:49] VITALS: BP 142/84; PULSE 70
[2016-07-10] MEDS: Hydrocerin(120 gm) TOP SCH (10:14)
[2016-07-10] MEDS: cefTRIAXone 1 gm 1 GM/100 ML BAG IVPB SCH (11:12)
[2016-07-10] MEDS ORDERED: Lidocaine 2% Inj (20ml) ONE (14:44)
--- NOTE | 2016-07-10 15:51 | CP.PCM.PN ---
Subjective - Date & Time of Evaluation Date of Evaluation: 07/10/16 Time of Evaluation: 13:45 - Subjective Subjective: Infectious Disease Follow Up: July 10, 2016 61 yo male with presentation of 2 days of generalized weakness, polydysia, polyuria, hemoptysis, cough with green-colored sputum, intermittent confusion and some mild SOB. On CT scan, tree in bud formations seen. Patient placed under respiratory isolation for TB workup. The patient has no recent travel history. 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 Prior to that, he worked for a [employer] company for 7 years. Extensive pulmonary findings on CT scan. Case discussed with Dr. Moreno. Culture of blood showing gram positive cocci on multiple cultures with FISH testing showing Staph Aureus. Last Vancomycin level at 13.4. Acid-Fast Bacilli Sputum evaluations x 3 are negative. Multiple cultures with MSSA growth. Patient feeling better overall. Patient still with persistent cough. Imaging studies suggest worsening infiltrate. On Nafcillin and Zyvox. JANEL done on Wednesday. Changed Vancomycin IV to Zyvox for better lung penetration Wednesday. Afebrile today. Cannot rule out malignancy as part of differential. The patient's JANEL did not show any vegetations. Repeat chest X- rays show persistent right lung infiltrates and right pleural effusion. On the whole, the patient is clinically improving. Noted that temperature went up to 101.2 F two days ago. Resend cutures. Clinically no physical changes. The patient has not had improvement in the repeat CT chest. Would see if the masses seen in the right lung can be biopsied. Have to rule out malignancy at this point. Dr. Gordon Lazaro performed a CT guided biopsy of the 4 cm diameter right upper lobe mass in the lung. Inflammatory cells seen in pathology. Patient major complaint is persistent cough. He is receiving a PICC line for extended antibiotic infusion. Objective - Vital Signs/Intake and Output Vital Signs (last 24 hours): Temp Pulse Resp BP Pulse Ox 98.5 F 70 18 142/84 97 07/10/16 08:00 07/10/16 09:46 07/10/16 08:00 07/10/16 09:46 07/10/16 08:00 Intake and Output: 07/10/16 07/10/16 06:59 18:59 Intake Total 960 420 Output Total 2475 600 Balance -1515 -180 - Medications Medications: Current Medications Acetaminophen (Tylenol 325mg Tab) 650 mg PO Q8 PRN PRN Reason: Fever >100.4 F Last Admin: 07/04/16 04:52 Dose: 650 mg Albuterol/Ipratropium (Duoneb 3 Mg/0.5 Mg (3 Ml) Ud) 3 ml IH Q2H PRN PRN Reason: Shortness of Breath Last Admin: 06/23/16 23:50 Dose: 3 ml Albuterol/Ipratropium (Duoneb 3 Mg/0.5 Mg (3 Ml) Ud) 3 ml IH [id number] [facility] Last Admin: 07/10/16 13:14 Dose: Not Given Amlodipine Besylate (Norvasc) 10 mg PO DAILY [facility] Last Admin: 07/10/16 09:46 Dose: 10 mg Benzonatate (Tessalon Perles) 100 mg PO TID [facility] Last Admin: 07/10/16 09:47 Dose: 100 mg Emollient Ointment (Vaseline Oint) 5 gm TOP PRN [facility] Ferrous Sulfate (Feosol Liq) 300 mg PO TID [facility] Last Admin: 07/10/16 09:47 Dose: 300 mg Ceftriaxone Sodium (Rocephin 1 Gram Ivpb) 1 gm in 100 mls @ 100 mls/hr IVPB DAILY [facility] PRN Reason: Protocol Last Admin: 07/10/16 11:12 Dose: 100 mls/hr Fluconazole (Diflucan Iv 200 Mg/100 Ml Ns) 100 mls @ 100 mls/hr IVPB DAILY [facility] PRN Reason: Protocol Last Admin: 07/10/16 09:47 Dose: 100 mls/hr Insulin Human Lispro (Humalog Low) 0 units SC ACBD [facility] PRN Reason: Protocol Last Admin: 07/10/16 07:55 Dose: Not Given Linezolid (Zyvox) 600 mg PO BID [facility] PRN Reason: Protocol Last Admin: 07/09/16 17:29 Dose: 600 mg Lisinopril (Zestril) 30 mg PO DAILY [facility] Last Admin: 07/10/16 09:46 Dose: 30 mg Metformin HCl (Glucophage) 500 mg PO BID [facility] Last Admin: 07/10/16 09:46 Dose: 500 mg Metoprolol Tartrate (Lopressor) 25 mg PO BID [facility] Last Admin: 07/10/16 09:46 Dose: 25 mg Multi-Ingredient Cream (Hydrocerin Cream) 1 ea TOP DAILY [facility] Last Admin: 07/10/16 10:14 Dose: Not Given Oxycodone/Acetaminophen (Percocet 5/325 Mg Tab) 1 tab PO Q6H PRN PRN Reason: Pain, moderate (4-7) Stop: 07/10/16 15:48 Pantoprazole Sodium (Protonix Ec Tab) 40 mg PO ACB [facility] Last Admin: 07/10/16 08:00 Dose: 40 mg - Labs Labs: 07/09/16 06:45 07/09/16 06:45 PT 11.1 Seconds (9.9-11.8) 07/10/16 08:00 INR 1.03 (0.93-1.08) 07/10/16 08:00 APTT 30.7 Seconds (23.7-30.8) 07/10/16 08:00 - Constitutional Appears: Non-toxic, No Acute Distress, Chronically Ill - Head Exam Head Exam: ATRAUMATIC, NORMOCEPHALIC - Eye Exam Eye Exam: EOMI, PERRL Pupil Exam: NORMAL ACCOMODATION, PERRL - ENT Exam ENT Exam: Mucous Membranes Moist, Normal External Ear Exam, TM's Normal Bilaterally - Neck Exam Neck Exam: Full ROM, Normal Inspection - Respiratory Exam Respiratory Exam: Decreased Breath Sounds, Clear to Ausculation Bilateral, NORMAL BREATHING PATTERN. absent: Rales, Rhonchi, Wheezes Additional comments: right lung decreased breath sounds. - Cardiovascular Exam Cardiovascular Exam: REGULAR RHYTHM, RRR, +S1, +S2 - GI/Abdominal Exam GI & Abdominal Exam: Soft, Normal Bowel Sounds. absent: Distended, Tenderness - Extremities Exam Extremities Exam: Full ROM, Normal Inspection - Neurological Exam Neurological Exam: Alert, Awake, CN II-XII Intact, Oriented x3 - Psychiatric Exam Psychiatric exam: Normal Affect, Normal Mood - Skin Skin Exam: Intact, Normal Color Assessment and Plan - Assessment and Plan (Free Text) Assessment: 61 yo male presenting with Uncontrolled DM and DKA. Incidental finding of pneumonic picture with a possibility for TB. The patient is under isolation for TB. Risks for TB appear to be low. The patient for acid-fast testing of the sputum x 3. Cannot rule out ALISON, fungal, or severe bacterial infections such as Staph Aureus or Strep Pneumonia. He is being treated for his DKA. On Vancomycin and Zosyn. gram positive cocci in blood cultures. May need to consider Teflaro instead to get better concentrations in the lung for MRSA. Supportive care. AFB x 3 negative. Multiple blood cultures with gram positive cocci. FISH indicating Staph Aureus. On Vancomycin and Zosyn currently. Would obtain Quantiferon for reference point... a positive Quantiferon would not impact management of the case at this time. This test would only indicate patient exposure during his lifetime. Would obtain echocardiogram as well. MSSA in multiple cultures. TTE does not show vegetations. The patient appears to be improving. Persistent fevers and cough. Cannot rule out malignancy as part of the differential. Await official results of the JANEL - preliminary report is no vegetations. Patient with yeast growth on one blood culture. Awaiting identification of yeast. Continued on Diflucan 200mg IV daily for now. Patient with temperature up to 101.2 F several days ago. Chest X-ray did not show any changes to right-sided pneumonia. Patient continues to have pain in right lung when coughing. At this point, would repeat cultures. Hold further Motrin doses unless fever reoccurs. Agree with obtaining CT Chest. Will consider advancing antibiotics to Ancef or Zosyn from Nafcillin if fevers persist. Agree with thoracentesis and evaluating for potenital malignancy. The patient did not have fevers today. CT guided biopsy performed by Dr. Gordon Lazaro yesterday of the right upper lobe of a 4 cm diameter consolidation. Results of biopsy show inflammatory cells. Would continue with Rocephin 1 gm daily for 7 days with PO Diflucan 200mg daily for 14 days and Zyvox PO 600mg BID for 7 days. Thank you for allowing me to participate in the care of this patient, we will follow with you.
--- NOTE | 2016-07-10 18:41 | CP.PCM.PN ---
Subjective - Date & Time of Evaluation Date of Evaluation: 07/10/16 Time of Evaluation: 16:00 - Subjective Subjective: 61 y/o M w/ PNA . Continues to have productive sputum w/ low grade temps. Fells mildly better and is ambulating. PICC placement today for d/c on ABX. Objective - Vital Signs/Intake and Output Vital Signs (last 24 hours): Temp Pulse Resp BP Pulse Ox 98.5 F 70 18 142/84 97 07/10/16 08:00 07/10/16 09:46 07/10/16 08:00 07/10/16 09:46 07/10/16 08:00 Intake and Output: 07/10/16 07/10/16 06:59 18:59 Intake Total 960 420 Output Total 2475 600 Balance -1515 -180 - Labs Labs: 07/09/16 06:45 07/09/16 06:45 PT 11.1 Seconds (9.9-11.8) 07/10/16 08:00 INR 1.03 (0.93-1.08) 07/10/16 08:00 APTT 30.7 Seconds (23.7-30.8) 07/10/16 08:00 - Head Exam Head Exam: ATRAUMATIC, NORMAL INSPECTION - Eye Exam Eye Exam: EOMI, Normal appearance Pupil Exam: NORMAL ACCOMODATION - ENT Exam ENT Exam: Mucous Membranes Moist - Neck Exam Neck Exam: Normal Inspection - Respiratory Exam Respiratory Exam: Decreased Breath Sounds (at bases), NORMAL BREATHING PATTERN - Cardiovascular Exam Cardiovascular Exam: REGULAR RHYTHM - GI/Abdominal Exam GI & Abdominal Exam: Normal Bowel Sounds - Extremities Exam Extremities Exam: Full ROM, Normal Inspection - Back Exam Back Exam: NORMAL INSPECTION - Neurological Exam Neurological Exam: Alert, Awake Assessment and Plan - Assessment and Plan (Free Text) Assessment: 61 y/o M w/ PNA Repeat CT shows peripheral infiltrates ( nodular ) migratory in nature despite over 1 week of abx. Super infection might be likely on MSSA and Enterobacter. Thoracentesis would have been helpfull? Biopsy was reviews showing inflammatory changes and fibroblasts. 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 After the patient completes his course of abx for several weeks per ID. If he doesn't improve or has fevers or worsening respiratory status, would likely need VATS Biopsy and or empiric trial of steroids 1mg/kg x 4-6 weeks for probably RENEWALS SPECIALIST. Please keep pulmonary informed on his discharge status and follow up. AFB culture pending. thank you
--- NOTE | 2016-07-10 19:01 | PN ---
DATE: 07/10/2016 LOCATION: Room 572. This is a 61-year-old male with recent uncontrolled type 2 insulin-requiring diabetes, now being foll owed closely for metabolic management. His glycemic levels are fluctuating, but much improved at thi s time and has been taken off all insulin therapy at this time. His glucose values have ranged from 100-102 mm/dL. His latest chemistry showed a BUN of 7, sodium 139, potassium 4.0, chloride 104 , CO2 of 26, glucose 97 and creatinine 1.0. So, at this time, will continue the oral hypoglycemic dr ug therapy as ordered with metformin given as 500 mg after meals as ordered. Will continue th e low-dose correction scale using Humalog insulin as given. Will obtain serial chemistries and suppl ement accordingly as needed. Will follow. Sherri Hurst MD cc: [id number] TT: 07/10/2016 19:01:15 Confirmation # [id number] Dictation # [id number] chio
--- NOTE | 2016-07-10 22:04 | VASCULAR ---
PROCEDURE: Ultrasound and fluoroscopically placed left upper extremity PICC line. HISTORY: Pneumonia. Long-term IV antibiotics. Needs PICC line. PHYSICIAN(S): Gordon Lazaro MD. TECHNIQUE: The relative risks and indications of the procedure were explained to the patient and consent obtained. The patient was placed supine on the arteriogram table and the left arm prepped and draped in the usual sterile fashion. A tourniquet was applied to the left axilla. 1% Xylocaine was used to anesthetize the skin and soft tissues at the puncture site above the elbow. The basilic vein was punctured under direct ultrasound guidance with a micropuncture set. A 0.018 guidewire was advanced centrally and used to measure the length to the SVC/RA junction. A 5 Khmer single-lumen PICC line 45 cm long was advanced to the SVC/RA junction. The catheter was flushed and secured. The patient tolerated the procedure well. IMPRESSION: 1. Ultrasound and fluoroscopically placed left upper extremity PICC line. A 5 Khmer single-lumen PICC line 45 cm long was advanced to the SVC/RA junction.
--- NOTE | 2016-07-10 22:31 | CP.PCM.DIS ---
<Aaron Oneal - Last Filed: 07/11/16 10:07> Provider - Provider Date of Admission: 06/19/16 19:22 Attending physician: Bob Moreno MD Time Spent in preparation of Discharge (in minutes): 35 Diagnosis - Discharge Diagnosis (1) Sepsis due to pneumonia Status: Acute (2) Diabetic ketoacidosis Status: Acute Hospital Course - Lab Results Lab Results: Micro Results 07/07/16 14:59 Other: Please Indicate Gram Stain - Final 07/07/16 14:59 Other: Please Indicate Body Fluid Culture - Preliminary NO GROWTH AFTER 3 DAYS 07/07/16 14:59 Other: Please Indicate Anaerobic Culture - Final NO ANAEROBES ISOLATED. 07/04/16 07:32 Blood-Venous Blood Culture - Final NO GROWTH AFTER 5 DAYS 07/04/16 07:32 Blood-Venous Gram Stain - Final TEST NOT PERFORMED 07/04/16 07:01 Blood-Venous Blood Culture - Final NO GROWTH AFTER 5 DAYS 07/04/16 07:01 Blood-Venous Gram Stain - Final TEST NOT PERFORMED 07/06/16 03:29 Sputum Gram Stain - Final 07/06/16 03:29 Sputum Sputum Culture - Final Enterobacter Cloacae Ssp Cloac 06/22/16 15:18 Other: Please Indicate Mycobacterial Culture - Preliminary 06/21/16 07:00 Other: Please Indicate Mycobacterial Culture - Preliminary 06/19/16 23:23 Other: Please Indicate Mycobacterial Culture - Preliminary 06/20/16 12:39 Other: Please Indicate Mycobacterial Culture - Preliminary 06/28/16 17:15 Blood-Venous Blood Culture - Final NO GROWTH AFTER 5 DAYS 06/28/16 17:15 Blood-Venous Gram Stain - Final TEST NOT PERFORMED 06/28/16 16:50 Blood-Venous Blood Culture - Final NO GROWTH AFTER 5 DAYS 06/28/16 16:50 Blood-Venous Gram Stain - Final 06/27/16 07:30 Blood Blood Culture - Final NO GROWTH AFTER 5 DAYS 06/27/16 07:30 Blood Gram Stain - Final TEST NOT PERFORMED 06/30/16 06:50 Stool Stool Culture - Final NO SALMONELLA, SHIGELLA OR CAMPYLOBACTER ISOLATED. 06/27/16 08:00 Blood Blood Culture - Final Yoli Albicans 06/27/16 08:00 Blood Gram Stain - Final 06/29/16 09:50 Stool Stool Culture - Final NO SALMONELLA, SHIGELLA OR CAMPYLOBACTER ISOLATED. 06/24/16 19:30 Blood-Venous Blood Culture - Final NO GROWTH AFTER 5 DAYS 06/24/16 19:30 Blood-Venous Gram Stain - Final TEST NOT PERFORMED 06/24/16 19:00 Blood-Venous Blood Culture - Final NO GROWTH AFTER 5 DAYS 06/24/16 19:00 Blood-Venous Gram Stain - Final TEST NOT PERFORMED 06/29/16 09:50 Stool C. difficile Antigen & Toxin A,B (M - Final 06/22/16 12:20 Blood Blood Culture - Final NO GROWTH AFTER 5 DAYS 06/22/16 12:20 Blood Gram Stain - Final TEST NOT PERFORMED 06/22/16 12:20 Blood S.aureus & Coag-Neg Staph PNA FISH - Final TEST NOT PERFORMED 06/22/16 12:20 Blood Blood Culture - Final Staphylococcus Aureus 06/22/16 12:20 Blood Gram Stain - Final 06/21/16 10:30 Sputum Gram Stain - Final 06/21/16 10:30 Sputum Sputum Culture - Final Staphylococcus Aureus 06/20/16 14:00 Blood Blood Culture - Final Staphylococcus Aureus 06/20/16 14:00 Blood Gram Stain - Final 06/20/16 13:30 Blood Blood Culture - Final Staphylococcus Aureus 06/20/16 13:30 Blood Gram Stain - Final 06/20/16 08:06 Urine,Clean Catch Urine Culture - Final Yeast Species 06/19/16 22:00 Naris MRSA Culture (Admit) - Final MRSA NOT DETECTED Most Recent Lab Values WBC 6.2 10^3/ul (4.5-11.0) 07/09/16 06:45 RBC 3.50 10^6/uL (3.5-6.1) 07/09/16 06:45 Hgb 9.5 gm/dL (14.0-18.0) L 07/09/16 06:45 Hct 30.8 % (42.0-52.0) L 07/09/16 06:45 MCV 88.0 fL (80.0-105.0) 07/09/16 06:45 MCH 27.1 pg (25.0-35.0) 07/09/16 06:45 MCHC 30.8 g/dl (31.0-37.0) L 07/09/16 06:45 RDW 14.7 % (11.5-14.5) H 07/09/16 06:45 Plt Count 361 10^3/uL (120.0-450.0) 07/09/16 06:45 MPV 10.0 fl (7.0-11.0) 07/09/16 06:45 Gran % 61.6 % (50.0-68.0) 07/09/16 06:45 Lymph % (Auto) 28.0 % (22.0-35.0) 07/09/16 06:45 Eaton % (Auto) 8.3 % (1.0-6.0) H 07/09/16 06:45 Eos % (Auto) 1.9 % (1.5-5.0) 07/09/16 06:45 Baso % (Auto) 0.2 % (0.0-3.0) 07/09/16 06:45 Gran # 3.84 (1.4-6.5) 07/09/16 06:45 Lymph # 1.8 (1.2-3.4) 07/09/16 06:45 Eaton # 0.5 (0.1-0.6) 07/09/16 06:45 Eos # 0.1 (0.0-0.7) 07/09/16 06:45 Baso # 0.01 K/mm3 (0.0-2.0) 07/09/16 06:45 Corrected WBC (Man) Cancelled 06/20/16 04:00 Neutrophils % (Manual) Cancelled 06/20/16 04:00 Band Neutrophils % Cancelled 06/20/16 04:00 Lymphocytes % (Manual) Cancelled 06/20/16 04:00 Atypical Lymphs % Cancelled 06/20/16 04:00 Monocytes % (Manual) Cancelled 06/20/16 04:00 Eosinophils % (Manual) Cancelled 06/20/16 04:00 Basophils % (Manual) Cancelled 06/20/16 04:00 Metamyelocytes % Cancelled 06/20/16 04:00 Myelocytes % Cancelled 06/20/16 04:00 Promyelocytes % Cancelled 06/20/16 04:00 Nucleated RBC % Cancelled 06/20/16 04:00 Hypersegmented Polys Cancelled 06/20/16 04:00 Immature Lymphocytes Cancelled 06/20/16 04:00 Blast Cells Cancelled 06/20/16 04:00 Smudge Cells Cancelled 06/20/16 04:00 Toxic Granulation Cancelled 06/20/16 04:00 Dohle Bodies Cancelled 06/20/16 04:00 Jessenia Rods Cancelled 06/20/16 04:00 Platelet Evaluation Cancelled 06/20/16 04:00 Plt Clumps, EDTA Cancelled 06/20/16 04:00 Large Platelets Cancelled 06/20/16 04:00 Giant Platelets Cancelled 06/20/16 04:00 Polychromasia Cancelled 06/20/16 04:00 Hypochromasia Cancelled 06/20/16 04:00 Hyperchromasia Cancelled 06/20/16 04:00 Poikilocytosis (manual Cancelled 06/20/16 04:00 Basophilic Stippling Cancelled 06/20/16 04:00 Anisocytosis (manual) Cancelled 06/20/16 04:00 Microcytosis (manual) Cancelled 06/20/16 04:00 Macrocytosis (manual) Cancelled 06/20/16 04:00 Spherocytes Cancelled 06/20/16 04:00 Sickle Cells Cancelled 06/20/16 04:00 Target Cells Cancelled 06/20/16 04:00 Tear Drop Cells Cancelled 06/20/16 04:00 Ovalocytes Cancelled 06/20/16 04:00 Stomatocytes Cancelled 06/20/16 04:00 Helmet Cells Cancelled 06/20/16 04:00 Sentinel Rings Cancelled 06/20/16 04:00 Davon Cells Cancelled 06/20/16 04:00 Acanthocytes (Spur) Cancelled 06/20/16 04:00 Rouleaux Cancelled 06/20/16 04:00 PT 11.1 Seconds (9.9-11.8) 07/10/16 08:00 INR 1.03 (0.93-1.08) 07/10/16 08:00 APTT 30.7 Seconds (23.7-30.8) 07/10/16 08:00 pCO2 19 mm/Hg (35-45) L* 06/21/16 05:50 pO2 71.0 mm/Hg (80-100) L 06/21/16 05:50 HCO3 10.7 mmol/L (21-28) L 06/21/16 05:50 ABG pH 7.36 (7.35-7.45) 06/21/16 05:50 ABG Total CO2 11.3 mmol.L (22-28) L 06/21/16 05:50 ABG O2 Saturation 97.7 % (95-98) 06/21/16 05:50 ABG O2 Content 10.8 ML/dl (15-23) L 06/21/16 05:50 ABG Base Excess -13.2 mmol/L (-2.0-3.0) L 06/21/16 05:50 ABG Hemoglobin 7.9 g/dL (11.7-17.4) L 06/21/16 05:50 ABG Carboxyhemoglobin 1.1 % (0.5-1.5) 06/21/16 05:50 POC ABG HHb (Measured) 2.3 % (0-5) 06/21/16 05:50 ABG Methemoglobin 0.4 % (0.0-3.0) 06/21/16 05:50 ABG O2 Capacity 11.1 mL/dl (16-24) L 06/21/16 05:50 ABG Potassium 4.7 mmol/L (3.6-5.2) 06/19/16 18:35 VBG pH 7.36 (7.32-7.43) 06/20/16 04:00 VBG pCO2 26.0 (40-60) L 06/20/16 04:00 VBG HCO3 14.7 mmol/l (21-28) L 06/20/16 04:00 VBG Total CO2 12.1 mmol.L (22-28) L 06/19/16 23:20 VBG O2 Sat (Calc) 89.2 % (40-65) H 06/20/16 04:00 VBG Base Excess -9.1 mmol/L (0.0-2.0) L 06/20/16 04:00 VBG Potassium 4.3 mmol/L (3.6-5.2) 06/19/16 23:20 Hgb O2 Saturation 96.2 % (95.0-98.0) 06/21/16 05:50 Sodium 148.0 mmol/L (132-148) 06/19/16 23:20 Chloride 121.0 mmol/L (98-107) H 06/19/16 23:20 Glucose 257 mg/dl (75-110) H 06/19/16 23:20 Lactate 4.0 mmol/L (0.7-2.1) H* 06/19/16 23:20 FiO2 28.0 % 06/21/16 05:50 Sodium 139 mmol/L (132-148) 07/09/16 06:45 Potassium 4.0 mmol/L (3.6-5.0) 07/09/16 06:45 Chloride 104 mmol/L (98-107) 07/09/16 06:45 Carbon Dioxide 26 mmol/L (21-33) 07/09/16 06:45 Anion Gap 13 (10-20) 07/09/16 06:45 BUN 7 mg/dL (7-21) 07/09/16 06:45 Creatinine 1.0 mg/dL (0.5-1.4) 07/09/16 06:45 Est GFR ( Amer) > 60 07/09/16 06:45 Est GFR (Non-Af Amer) > 60 07/09/16 06:45 POC Glucose (mg/dL) 106 mg/dL (65-110) 07/10/16 11:04 Random Glucose 97 mg/dL (70-110) 07/09/16 06:45 Hemoglobin A1c 14.3 % (4.2-6.5) H 07/06/16 06:00 Lactic Acid 2.5 mmol/L (0.7-2.1) H 06/21/16 04:20 Calcium 8.7 mg/dL (8.4-10.5) 07/09/16 06:45 Phosphorus 2.9 mg/dL (2.5-4.5) 06/23/16 06:30 Magnesium 2.2 mg/dL (1.7-2.2) 06/28/16 10:00 Iron 21 ug/dL (45-180) L 06/29/16 07:10 TIBC 165 ug/dL (261-462) L 06/29/16 07:10 % Saturation 13 % (20-55) L 06/29/16 07:10 Ferritin 176.0 ng/mL 06/29/16 07:10 Total Bilirubin 0.5 mg/dL (0.2-1.3) 07/09/16 06:45 AST 17 U/L (15-59) 07/09/16 06:45 ALT 27 U/L (7-56) 07/09/16 06:45 Alkaline Phosphatase 65 U/L (38-133) 07/09/16 06:45 Lactate Dehydrogenase 756 U/L (333-699) H 06/19/16 18:15 Total Creatine Kinase 117 U/L (35-230) 06/19/16 18:15 Troponin I < 0.01 ng/mL D 07/02/16 07:30 NT-Pro-B Natriuret Pep 370 pg/mL (0-450) 06/19/16 18:15 Total Protein 8.0 g/dL (5.8-8.3) 07/09/16 06:45 Albumin 3.2 g/dL (3.0-4.8) 07/09/16 06:45 Globulin 4.9 gm/dL 07/09/16 06:45 Albumin/Globulin Ratio 0.7 (1.1-1.8) L 07/09/16 06:45 Triglycerides 92 mg/dL (35-160) 06/21/16 04:20 Cholesterol 123 mg/dL (130-200) L 06/21/16 04:20 LDL Cholesterol Direct 54 mg/dL (0-129) 06/21/16 04:20 HDL Cholesterol 25 mg/dL (29-60) L 06/21/16 04:20 Amylase 49 U/L (35-125) 06/19/16 18:15 Lipase 26 U/L (23-300) 06/19/16 18:15 Vitamin B12 542 pg/mL (239-931) 06/29/16 07:10 Folate 4.3 ng/mL 06/29/16 07:10 Procalcitonin 1.09 NG/ML (0.19-0.49) H 06/26/16 10:04 Free T4 0.95 ng/dL (0.78-2.19) 06/22/16 12:20 TSH 3rd Generation 0.23 mIU/mL (0.46-4.68) L 06/22/16 12:20 Arterial Blood Potassium 4.7 mmol/L (3.6-5.2) 06/19/16 18:35 Venous Blood Potassium 4.3 mmol/L (3.6-5.2) 06/19/16 23:20 Urine Color Yellow (YELLOW) 06/20/16 06:46 Urine Appearance Sl cloudy (CLEAR) 06/20/16 06:46 Urine pH 5.5 (4.7-8.0) 06/20/16 06:46 Ur Specific [place] 1.025 (1.005-1.035) 06/20/16 06:46 Urine Protein 100 mg/dL (<30 mg/dL) H 06/20/16 06:46 Urine Glucose (UA) 100 mg/dL (NEGATIVE) H 06/20/16 06:46 Urine Ketones 40 mg/dL (NEGATIVE) H 06/20/16 06:46 Urine Blood Large (NEGATIVE) H 06/20/16 06:46 Urine Nitrate Negative (NEGATIVE) 06/20/16 06:46 Urine Bilirubin Small (NEGATIVE) H 06/20/16 06:46 Urine Urobilinogen 1.0 E.U./dL (<1 E.U./dL) H 06/20/16 06:46 Ur Leukocyte Esterase Negative Maddie/uL (NEGATIVE) 06/20/16 06:46 Urine RBC 2 - 5 /hpf (0-2) 06/20/16 06:46 Urine WBC 0 - 2 /hpf (0-6) 06/20/16 06:46 Ur Epithelial Cells 0 - 2 /hpf (0-5) 06/20/16 06:46 Uric Acid Crystals Few /hpf 06/20/16 06:46 Amorphous Sediment Few 06/20/16 06:46 Urine Bacteria Mod (NEG) 06/20/16 06:46 Coarse Granular Casts Small /hpf (0-2) H 06/20/16 06:46 Urine Other Uyeast 06/20/16 06:46 Stool Occult Blood Negative (NEGATIVE) 07/06/16 05:30 Vancomycin Peak 11.3 ug/mL (30.0-40.0) L 06/23/16 19:30 Vancomycin Trough 13.9 ug/mL (5.0-10.0) H 06/23/16 11:00 Rheumatoid Factor 8 IU/mL (<14) 07/08/16 06:00 NISHA Screen Negative (Negative) 07/08/16 06:00 NISHA Titer TEST NOT PERFORMED 07/08/16 06:00 NISHA Titer 2 TEST NOT PERFORMED 07/08/16 06:00 NISHA Pattern TEST NOT PERFORMED 07/08/16 06:00 NISHA Pattern 2 TEST NOT PERFORMED 07/08/16 06:00 HIV 1&2 Ag/Ab, 4th Gen Nonreactive (Nonreactive) 06/20/16 10:28 TB Test Mitogen - Nil IU/mL (()) 06/22/16 05:40 TB Test (QFT) TNP 06/22/16 05:40 - Hospital Course Hospital Course: The patient is a 61 year old man with history of HTN and NIDDM who presented with 2 days of generalized weakness, polydypsia, polyuria, hemoptysis, cough with green-colored sputum, intermittent confusion and some mild SOB. In the ED, his chest X-ray shows a RUL infiltrate, his vitals showed a low grade fever of 100.2, pulse 111, resp rate 36 and BP of 156/91. He also had a blood glucose level of >500. ABG showed pH of 7.14 with lactate of 2.2. VBG showed ph of 7.12 and lactate of 4.0. A CT chest/abd/pelvis was significant for multifocal pneumonia with tree in bud opacifications in both lungs. He was transferred to ICU to manage his DKA and likely sepsis 2/2 pneumonia. In the ICU pt. was started on Vancomycin, Zosyn, fluids, and insulin drip with his electrolytes monitored closely until his anion gap closed. He was also put on isolation until 3 AFB sputum cultures returned as negative. His cultures returned with MSSA. He was then switched from Zosyn to Nafcillin. After he was further stabilized in the ICU, he was transferred to the floors for continued treatment with IV antibiotics. His Vancomycin was later changed to Zyvox for better lung penetration. One of his blood cultures grew Yoli and the pt. was started on Diflucan. Pt. continued to improved clinically, but would spike temperatures and repeat CT and XRAY did not show improvement. Pt. also reported lower back pain and a CT lumbar spine was ordered which demonstrated no evidence of acute findings. Echocardiogram and JANEL were ordered and both showed no evidence of vegetations. Pt. went for lung biopsy with preliminary results showing inflammatory cells with no evidence of cancer. After patient was afebrile for 3 days, he was d/c with a PICC line with appointment to return for continued IV antibiotic therapy. He was advised to setup care with a primary care physician through his insurance and also to follow up with Dr. Schaffer for a complete eye exam. This is a brief account of his stay. For more information, please see his chart. - Date & Time of H&P Date of H&P: 07/10/16 Time of H&P: 07:40 Discharge Exam - Head Exam Head Exam: ATRAUMATIC, NORMAL INSPECTION - Eye Exam Eye Exam: EOMI, Normal appearance - Respiratory Exam Respiratory Exam: Rhonchi, NORMAL BREATHING PATTERN - Cardiovascular Exam Cardiovascular Exam: REGULAR RHYTHM, RRR, +S1, +S2. absent: JVD - GI/Abdominal Exam GI & Abdominal Exam: Normal Bowel Sounds, Soft, Unremarkable. absent: Tenderness - Back Exam Back exam: FULL ROM. absent: rash noted - Neurological Exam Neurological exam: Alert, CN II-XII Intact, Normal Gait, Oriented x3, Reflexes Normal - Psychiatric Exam Psychiatric exam: Normal Affect, Normal Mood - Skin Skin Exam: Dry, Intact, Normal Color, Warm Discharge Plan - Discharge Medications Prescriptions: Acetaminophen [Tylenol 325mg tab] 650 mg PO Q8 PRN #90 tab PRN Reason: Fever >100.4 F amLODIPine [Norvasc] 10 mg PO DAILY #30 tab Benzonatate [Tessalon Perles] 100 mg PO TID #90 sgl Ferrous Sulfate [Feosol Liq] 300 mg PO TID #90 Fluconazole [Diflucan] 200 mg PO DAILY #7 tab Linezolid [Zyvox] 600 mg PO BID #14 tab Lisinopril [Zestril] 30 mg PO DAILY #30 tab Metoprolol Tartrate [Lopressor] 25 mg PO BID #60 tab - Follow Up Plan Condition: CRITICAL Disposition: HOME/ ROUTINE Instructions: Pneumococcal Vaccine for Adults (DC), Heart Healthy Diet (DC), Diabetic Ketoacidosis (DC), Diabetic Ketoacidosis (GEN), Peripherally Inserted Central Catheters and Midline Catheters (DC), Basic Carbohydrate Counting (DC), Hypertension (DC), Fall Prevention (DC) Additional Instructions: Patient is medically stable for discharge. Follow up with PMD of choice per insurance. follow-up with pulmonary/lung Doctor per PMD. Patient to follow up at the [facility] for continued treatment with IV Antibiotics daily. follow-up with ID Dr. go in one week To get biopsy results. Needs to determine the treatment options after biopsy results. Ophtho Consult - Dr. Schaffer - help appreciated. patient to follow up with after d/c for complete eye exam. Follow up in clinic Wednesday thru Wednesday. Sat. and Wednesday report to the nurse station. on 3r. Referrals: Sarkis Hankins MD [Staff Provider] - Russ Schaffer MD [Staff Provider] - Tripp Rubio MD [Staff Provider] - <Bob Moreno - Last Filed: 07/11/16 14:31> Provider - Provider Date of Admission: 06/19/16 19:22 Attending physician: Bob Moreno MD Hospital Course - Lab Results Lab Results: Micro Results 07/07/16 14:59 Other: Please Indicate Gram Stain - Final 07/07/16 14:59 Other: Please Indicate Body Fluid Culture - Final No growth. 07/07/16 14:59 Other: Please Indicate Anaerobic Culture - Final NO ANAEROBES ISOLATED. 07/04/16 07:32 Blood-Venous Blood Culture - Final NO GROWTH AFTER 5 DAYS 07/04/16 07:32 Blood-Venous Gram Stain - Final TEST NOT PERFORMED 07/04/16 07:01 Blood-Venous Blood Culture - Final NO GROWTH AFTER 5 DAYS 07/04/16 07:01 Blood-Venous Gram Stain - Final TEST NOT PERFORMED 07/06/16 03:29 Sputum Gram Stain - Final 07/06/16 03:29 Sputum Sputum Culture - Final Enterobacter Cloacae Ssp Cloac 06/22/16 15:18 Other: Please Indicate Mycobacterial Culture - Preliminary 06/21/16 07:00 Other: Please Indicate Mycobacterial Culture - Preliminary 06/19/16 23:23 Other: Please Indicate Mycobacterial Culture - Preliminary 06/20/16 12:39 Other: Please Indicate Mycobacterial Culture - Preliminary 06/28/16 17:15 Blood-Venous Blood Culture - Final NO GROWTH AFTER 5 DAYS 06/28/16 17:15 Blood-Venous Gram Stain - Final TEST NOT PERFORMED 06/28/16 16:50 Blood-Venous Blood Culture - Final NO GROWTH AFTER 5 DAYS 06/28/16 16:50 Blood-Venous Gram Stain - Final 06/27/16 07:30 Blood Blood Culture - Final NO GROWTH AFTER 5 DAYS 06/27/16 07:30 Blood Gram Stain - Final TEST NOT PERFORMED 06/30/16 06:50 Stool Stool Culture - Final NO SALMONELLA, SHIGELLA OR CAMPYLOBACTER ISOLATED. 06/27/16 08:00 Blood Blood Culture - Final Yoli Albicans 06/27/16 08:00 Blood Gram Stain - Final 06/29/16 09:50 Stool Stool Culture - Final NO SALMONELLA, SHIGELLA OR CAMPYLOBACTER ISOLATED. 06/24/16 19:30 Blood-Venous Blood Culture - Final NO GROWTH AFTER 5 DAYS 06/24/16 19:30 Blood-Venous Gram Stain - Final TEST NOT PERFORMED 06/24/16 19:00 Blood-Venous Blood Culture - Final NO GROWTH AFTER 5 DAYS 06/24/16 19:00 Blood-Venous Gram Stain - Final TEST NOT PERFORMED 06/29/16 09:50 Stool C. difficile Antigen & Toxin A,B (M - Final 06/22/16 12:20 Blood Blood Culture - Final NO GROWTH AFTER 5 DAYS 06/22/16 12:20 Blood Gram Stain - Final TEST NOT PERFORMED 06/22/16 12:20 Blood S.aureus & Coag-Neg Staph PNA FISH - Final TEST NOT PERFORMED 06/22/16 12:20 Blood Blood Culture - Final Staphylococcus Aureus 06/22/16 12:20 Blood Gram Stain - Final 06/21/16 10:30 Sputum Gram Stain - Final 06/21/16 10:30 Sputum Sputum Culture - Final Staphylococcus Aureus 06/20/16 14:00 Blood Blood Culture - Final Staphylococcus Aureus 06/20/16 14:00 Blood Gram Stain - Final 06/20/16 13:30 Blood Blood Culture - Final Staphylococcus Aureus 06/20/16 13:30 Blood Gram Stain - Final 06/20/16 08:06 Urine,Clean Catch Urine Culture - Final Yeast Species 06/19/16 22:00 Naris MRSA Culture (Admit) - Final MRSA NOT DETECTED Most Recent Lab Values WBC 6.2 10^3/ul (4.5-11.0) 07/09/16 06:45 RBC 3.50 10^6/uL (3.5-6.1) 07/09/16 06:45 Hgb 9.5 gm/dL (14.0-18.0) L 07/09/16 06:45 Hct 30.8 % (42.0-52.0) L 07/09/16 06:45 MCV 88.0 fL (80.0-105.0) 07/09/16 06:45 MCH 27.1 pg (25.0-35.0) 07/09/16 06:45 MCHC 30.8 g/dl (31.0-37.0) L 07/09/16 06:45 RDW 14.7 % (11.5-14.5) H 07/09/16 06:45 Plt Count 361 10^3/uL (120.0-450.0) 07/09/16 06:45 MPV 10.0 fl (7.0-11.0) 07/09/16 06:45 Gran % 61.6 % (50.0-68.0) 07/09/16 06:45 Lymph % (Auto) 28.0 % (22.0-35.0) 07/09/16 06:45 Eaton % (Auto) 8.3 % (1.0-6.0) H 07/09/16 06:45 Eos % (Auto) 1.9 % (1.5-5.0) 07/09/16 06:45 Baso % (Auto) 0.2 % (0.0-3.0) 07/09/16 06:45 Gran # 3.84 (1.4-6.5) 07/09/16 06:45 Lymph # 1.8 (1.2-3.4) 07/09/16 06:45 Eaton # 0.5 (0.1-0.6) 07/09/16 06:45 Eos # 0.1 (0.0-0.7) 07/09/16 06:45 Baso # 0.01 K/mm3 (0.0-2.0) 07/09/16 06:45 Corrected WBC (Man) Cancelled 06/20/16 04:00 Neutrophils % (Manual) Cancelled 06/20/16 04:00 Band Neutrophils % Cancelled 06/20/16 04:00 Lymphocytes % (Manual) Cancelled 06/20/16 04:00 Atypical Lymphs % Cancelled 06/20/16 04:00 Monocytes % (Manual) Cancelled 06/20/16 04:00 Eosinophils % (Manual) Cancelled 06/20/16 04:00 Basophils % (Manual) Cancelled 06/20/16 04:00 Metamyelocytes % Cancelled 06/20/16 04:00 Myelocytes % Cancelled 06/20/16 04:00 Promyelocytes % Cancelled 06/20/16 04:00 Nucleated RBC % Cancelled 06/20/16 04:00 Hypersegmented Polys Cancelled 06/20/16 04:00 Immature Lymphocytes Cancelled 06/20/16 04:00 Blast Cells Cancelled 06/20/16 04:00 Smudge Cells Cancelled 06/20/16 04:00 Toxic Granulation Cancelled 06/20/16 04:00 Dohle Bodies Cancelled 06/20/16 04:00 Jessenia Rods Cancelled 06/20/16 04:00 Platelet Evaluation Cancelled 06/20/16 04:00 Plt Clumps, EDTA Cancelled 06/20/16 04:00 Large Platelets Cancelled 06/20/16 04:00 Giant Platelets Cancelled 06/20/16 04:00 Polychromasia Cancelled 06/20/16 04:00 Hypochromasia Cancelled 06/20/16 04:00 Hyperchromasia Cancelled 06/20/16 04:00 Poikilocytosis (manual Cancelled 06/20/16 04:00 Basophilic Stippling Cancelled 06/20/16 04:00 Anisocytosis (manual) Cancelled 06/20/16 04:00 Microcytosis (manual) Cancelled 06/20/16 04:00 Macrocytosis (manual) Cancelled 06/20/16 04:00 Spherocytes Cancelled 06/20/16 04:00 Sickle Cells Cancelled 06/20/16 04:00 Target Cells Cancelled 06/20/16 04:00 Tear Drop Cells Cancelled 06/20/16 04:00 Ovalocytes Cancelled 06/20/16 04:00 Stomatocytes Cancelled 06/20/16 04:00 Helmet Cells Cancelled 06/20/16 04:00 Sentinel Rings Cancelled 06/20/16 04:00 Davon Cells Cancelled 06/20/16 04:00 Acanthocytes (Spur) Cancelled 06/20/16 04:00 Rouleaux Cancelled 06/20/16 04:00 PT 11.1 Seconds (9.9-11.8) 07/10/16 08:00 INR 1.03 (0.93-1.08) 07/10/16 08:00 APTT 30.7 Seconds (23.7-30.8) 07/10/16 08:00 pCO2 19 mm/Hg (35-45) L* 06/21/16 05:50 pO2 71.0 mm/Hg (80-100) L 06/21/16 05:50 HCO3 10.7 mmol/L (21-28) L 06/21/16 05:50 ABG pH 7.36 (7.35-7.45) 06/21/16 05:50 ABG Total CO2 11.3 mmol.L (22-28) L 06/21/16 05:50 ABG O2 Saturation 97.7 % (95-98) 06/21/16 05:50 ABG O2 Content 10.8 ML/dl (15-23) L 06/21/16 05:50 ABG Base Excess -13.2 mmol/L (-2.0-3.0) L 06/21/16 05:50 ABG Hemoglobin 7.9 g/dL (11.7-17.4) L 06/21/16 05:50 ABG Carboxyhemoglobin 1.1 % (0.5-1.5) 06/21/16 05:50 POC ABG HHb (Measured) 2.3 % (0-5) 06/21/16 05:50 ABG Methemoglobin 0.4 % (0.0-3.0) 06/21/16 05:50 ABG O2 Capacity 11.1 mL/dl (16-24) L 06/21/16 05:50 ABG Potassium 4.7 mmol/L (3.6-5.2) 06/19/16 18:35 VBG pH 7.36 (7.32-7.43) 06/20/16 04:00 VBG pCO2 26.0 (40-60) L 06/20/16 04:00 VBG HCO3 14.7 mmol/l (21-28) L 06/20/16 04:00 VBG Total CO2 12.1 mmol.L (22-28) L 06/19/16 23:20 VBG O2 Sat (Calc) 89.2 % (40-65) H 06/20/16 04:00 VBG Base Excess -9.1 mmol/L (0.0-2.0) L 06/20/16 04:00 VBG Potassium 4.3 mmol/L (3.6-5.2) 06/19/16 23:20 Hgb O2 Saturation 96.2 % (95.0-98.0) 06/21/16 05:50 Sodium 148.0 mmol/L (132-148) 06/19/16 23:20 Chloride 121.0 mmol/L (98-107) H 06/19/16 23:20 Glucose 257 mg/dl (75-110) H 06/19/16 23:20 Lactate 4.0 mmol/L (0.7-2.1) H* 06/19/16 23:20 FiO2 28.0 % 06/21/16 05:50 Sodium 139 mmol/L (132-148) 07/09/16 06:45 Potassium 4.0 mmol/L (3.6-5.0) 07/09/16 06:45 Chloride 104 mmol/L (98-107) 07/09/16 06:45 Carbon Dioxide 26 mmol/L (21-33) 07/09/16 06:45 Anion Gap 13 (10-20) 07/09/16 06:45 BUN 7 mg/dL (7-21) 07/09/16 06:45 Creatinine 1.0 mg/dL (0.5-1.4) 07/09/16 06:45 Est GFR ( Amer) > 60 07/09/16 06:45 Est GFR (Non-Af Amer) > 60 07/09/16 06:45 POC Glucose (mg/dL) 106 mg/dL (65-110) 07/10/16 11:04 Random Glucose 97 mg/dL (70-110) 07/09/16 06:45 Hemoglobin A1c 14.3 % (4.2-6.5) H 07/06/16 06:00 Lactic Acid 2.5 mmol/L (0.7-2.1) H 06/21/16 04:20 Calcium 8.7 mg/dL (8.4-10.5) 07/09/16 06:45 Phosphorus 2.9 mg/dL (2.5-4.5) 06/23/16 06:30 Magnesium 2.2 mg/dL (1.7-2.2) 06/28/16 10:00 Iron 21 ug/dL (45-180) L 06/29/16 07:10 TIBC 165 ug/dL (261-462) L 06/29/16 07:10 % Saturation 13 % (20-55) L 06/29/16 07:10 Ferritin 176.0 ng/mL 06/29/16 07:10 Total Bilirubin 0.5 mg/dL (0.2-1.3) 07/09/16 06:45 AST 17 U/L (15-59) 07/09/16 06:45 ALT 27 U/L (7-56) 07/09/16 06:45 Alkaline Phosphatase 65 U/L (38-133) 07/09/16 06:45 Lactate Dehydrogenase 756 U/L (333-699) H 06/19/16 18:15 Total Creatine Kinase 117 U/L (35-230) 06/19/16 18:15 Troponin I < 0.01 ng/mL D 07/02/16 07:30 NT-Pro-B Natriuret Pep 370 pg/mL (0-450) 06/19/16 18:15 Total Protein 8.0 g/dL (5.8-8.3) 07/09/16 06:45 Albumin 3.2 g/dL (3.0-4.8) 07/09/16 06:45 Globulin 4.9 gm/dL 07/09/16 06:45 Albumin/Globulin Ratio 0.7 (1.1-1.8) L 07/09/16 06:45 Triglycerides 92 mg/dL (35-160) 06/21/16 04:20 Cholesterol 123 mg/dL (130-200) L 06/21/16 04:20 LDL Cholesterol Direct 54 mg/dL (0-129) 06/21/16 04:20 HDL Cholesterol 25 mg/dL (29-60) L 06/21/16 04:20 Amylase 49 U/L (35-125) 06/19/16 18:15 Lipase 26 U/L (23-300) 06/19/16 18:15 Vitamin B12 542 pg/mL (239-931) 06/29/16 07:10 Folate 4.3 ng/mL 06/29/16 07:10 Procalcitonin 1.09 NG/ML (0.19-0.49) H 06/26/16 10:04 Free T4 0.95 ng/dL (0.78-2.19) 06/22/16 12:20 TSH 3rd Generation 0.23 mIU/mL (0.46-4.68) L 06/22/16 12:20 Arterial Blood Potassium 4.7 mmol/L (3.6-5.2) 06/19/16 18:35 Venous Blood Potassium 4.3 mmol/L (3.6-5.2) 06/19/16 23:20 Urine Color Yellow (YELLOW) 06/20/16 06:46 Urine Appearance Sl cloudy (CLEAR) 06/20/16 06:46 Urine pH 5.5 (4.7-8.0) 06/20/16 06:46 Ur Specific [place] 1.025 (1.005-1.035) 06/20/16 06:46 Urine Protein 100 mg/dL (<30 mg/dL) H 06/20/16 06:46 Urine Glucose (UA) 100 mg/dL (NEGATIVE) H 06/20/16 06:46 Urine Ketones 40 mg/dL (NEGATIVE) H 06/20/16 06:46 Urine Blood Large (NEGATIVE) H 06/20/16 06:46 Urine Nitrate Negative (NEGATIVE) 06/20/16 06:46 Urine Bilirubin Small (NEGATIVE) H 06/20/16 06:46 Urine Urobilinogen 1.0 E.U./dL (<1 E.U./dL) H 06/20/16 06:46 Ur Leukocyte Esterase Negative Maddie/uL (NEGATIVE) 06/20/16 06:46 Urine RBC 2 - 5 /hpf (0-2) 06/20/16 06:46 Urine WBC 0 - 2 /hpf (0-6) 06/20/16 06:46 Ur Epithelial Cells 0 - 2 /hpf (0-5) 06/20/16 06:46 Uric Acid Crystals Few /hpf 06/20/16 06:46 Amorphous Sediment Few 06/20/16 06:46 Urine Bacteria Mod (NEG) 06/20/16 06:46 Coarse Granular Casts Small /hpf (0-2) H 06/20/16 06:46 Urine Other Uyeast 06/20/16 06:46 Stool Occult Blood Negative (NEGATIVE) 07/06/16 05:30 Vancomycin Peak 11.3 ug/mL (30.0-40.0) L 06/23/16 19:30 Vancomycin Trough 13.9 ug/mL (5.0-10.0) H 06/23/16 11:00 Rheumatoid Factor 8 IU/mL (<14) 07/08/16 06:00 NISHA Screen Negative (Negative) 07/08/16 06:00 NISHA Titer TEST NOT PERFORMED 07/08/16 06:00 NISHA Titer 2 TEST NOT PERFORMED 07/08/16 06:00 NISHA Pattern TEST NOT PERFORMED 07/08/16 06:00 NISHA Pattern 2 TEST NOT PERFORMED 07/08/16 06:00 HIV 1&2 Ag/Ab, 4th Gen Nonreactive (Nonreactive) 06/20/16 10:28 TB Test Mitogen - Nil IU/mL (()) 06/22/16 05:40 TB Test (QFT) TNP 06/22/16 05:40 Attending/Attestation - Attestation I have personally seen and examined this patient.: Yes I have fully participated in the care of the patient.: Yes I have reviewed all pertinent clinical information, including history, physical exam and plan: Yes Notes (Text): 07/11/16 14:28 Attending note; Patient seen and examined with resident. Patient is a 61 year old man with history of HTN and NIDDM who presented with generalized weakness, polydysia, polyuria, hemoptysis, cough with greenish/ brown colored sputum, intermittent confusion and found to have DKA, hemoptysis and sepsis due to a multifocal pneumonia. Patient was also found to have MSSA bacteremia and candidemia/Yoli albicans. Patient is afebrile and non tocxic today. CT chest showed multifocal pneumonia /nodular changes. AFB x 3 is negative. TTE and JANEL showed no vegetations. status post right lung biopsy by Dr. violeta russo. prelim results showed inflammatory cells. official results pending. Fungal stain pending. case discussed with ID/pulmonary in detail. We will treat patient with IV Rocephin for 1 week with po Diflucan and po Zyvox. follow-up the results next week. We will Decide about need for long-term antibiotics/fungal or to start steroids after biopsy results. Picc line placed by Dr. violeta russo today for outpatient and to treatment. DM : on glucophage as per . Diabetic nurse educator evaluation appreciated. Dietary education given. upon discharge the patient will follow up with PMD of choice. patient will be discharged home today. Patient will follow-up with JOIE hankins next week for further treatment plan. Follow-up with pulmonary of choice by PMD. diagnosis; bilateral pneumonia MSSA bacteremia Yoli bacteremia Hypertension Diabetes status post lung biopsy
--- NOTE | 2016-07-22 17:16 | CP.PCM.PN ---
Subjective - Date & Time of Evaluation Date of Evaluation: 07/22/16 Time of Evaluation: 10:00 - Subjective Subjective: Patient seen in Infusion center. Patient still has elevated ESR and CRP. Currently on IV Rocephin. Patient is advised to continue Iv rocephin. Patient is advised to follow-up with Dr. hankins.appointment made by me . Patient will see Dr. hankins tomorrow at 2 pm. Case discussed with PMD Dr. Adkins in detail. Patient will get repeat CT scan next week. Patient is also advised to follow-up with pulmonary or choice as outpatient . Case discussed with Dr. Hankins in detail . Objective - Vital Signs/Intake and Output Vital Signs (last 24 hours): Temp Pulse Resp BP Pulse Ox 98.5 F 70 18 142/84 97 07/10/16 08:00 07/10/16 09:46 07/10/16 08:00 07/10/16 09:46 07/10/16 08:00 - Labs Labs: 07/09/16 06:45 07/09/16 06:45 PT 11.1 Seconds (9.9-11.8) 07/10/16 08:00 INR 1.03 (0.93-1.08) 07/10/16 08:00 APTT 30.7 Seconds (23.7-30.8) 07/10/16 08:00
== END 2016-07-10 18:07 | disposition home or self-care (01) | DRG 871 ==
LOC: ED 17:25 → ERH 19:22 → CCU 22:05 → 5RNO 06-23 18:35 → 5RSO 06-29 18:48
PROVIDERS: ADMIT Internal Medicine; ATTEND Internal Medicine
PROC: 3E0F7GC Introduction of Other Therapeutic Substance into Respiratory Tract, Via Natural or Artificial Opening (ICD-10-PCS; 2016-06-23)
PROC: 3E03328 Introduction of Oxazolidinones into Peripheral Vein, Percutaneous Approach (ICD-10-PCS; 2016-06-26)
PROC: 0BBC3ZX Excision of Right Upper Lung Lobe, Percutaneous Approach, Diagnostic (ICD-10-PCS; principal; 2016-07-07 14:00)
PROC: 02HV33Z Insertion of Infusion Device into Superior Vena Cava, Percutaneous Approach (ICD-10-PCS; 2016-07-10)
DX: A41.01 Sepsis due to Methicillin susceptible Staphylococcus aureus (principal); J15.211 Pneumonia due to Methicillin susceptible Staphylococcus aureus; E13.10 Other specified diabetes mellitus with ketoacidosis without coma; N17.9 Acute kidney failure, unspecified; K92.2 Gastrointestinal hemorrhage, unspecified; Z91.14 Patient's other noncompliance with medication regimen; B37.7 Candidal sepsis; I11.9 Hypertensive heart disease without heart failure; E78.5 Hyperlipidemia, unspecified; E11.649 Type 2 diabetes mellitus with hypoglycemia without coma; J90 Pleural effusion, not elsewhere classified; E86.0 Dehydration; E87.6 Hypokalemia; D63.8 Anemia in other chronic diseases classified elsewhere; Z91.19 Patient's noncompliance with other medical treatment and regimen; Z79.84 Long term (current) use of oral hypoglycemic drugs; Z79.4 Long term (current) use of insulin; Z87.11 Personal history of peptic ulcer disease; Z87.891 Personal history of nicotine dependence; Z82.49 Family history of ischemic heart disease and other diseases of the circulatory system; Z83.3 Family history of diabetes mellitus